=== PATIENT | male | born 1965 | race Two or more races ===

== ENCOUNTER 2019-11-17 14:21 | Inpatient (IN) | payer OTHER ==
[~2019-11-17] VITALS: Ht 175.3 cm; Wt 77.0 kg
[2019-11-17] MEDS ORDERED: SODIUM CHLORIDE 0.9% 1,000 ML IVB ONE (14:51)
[2019-11-17] MEDS ORDERED: MORPHINE SULFATE 4 MG/ML SYR/VIAL IV ONE (15:00)
[2019-11-17] MEDS ORDERED: ONDANSETRON HCL 4 MG/2 ML VIAL IV ONE (15:00)
[2019-11-17 15:48] LABS: Basophils # (auto) 0 10 ^3/uL (0-0.2); Basophils % (auto) 0.1 % (0.0-2.0); Eosinophils # (auto) 0 10 ^3/uL (0-0.8); Eosinophils % (auto) 0.1 % (0.0-7.0); Lymphocytes # (auto) 0.9 10 ^3/uL (0.4-5.4); Mean Corpuscular Hgb Conc. 33.8 g/dL (32.0-36.0)
[2019-11-17 15:51] LABS: Hematocrit 42.4 % (41.0-53.0); Hemoglobin 14.3 g/dL (13.5-17.5); Lymphocytes % (auto) 5.4 % (10.0-50.0); Mean Corpuscular Hemoglobin 29.4 pg (28.0-32.0); Neutrophils # (auto) 14.1 10 ^3/uL (1.6-8.6); Neutrophils % (auto) 88.4 % (37.0-80.0); Red Blood Cells 4.88 10^6/uL (4.5-5.90)
[2019-11-17 15:58] LABS: Albumin 1.7 g/dL (3.4-5.0); Anion Gap 7 (5-15); Blood Urea Nitrogen 18 mg/dL (7-18); Calcium 8.1 mg/dL (8.5-10.1); Carbon Dioxide 23 mmol/L (21-32); Chloride 96 mmol/L (98-107); Glucose 183 mg/dL (74-106); Lipase 44 U/L (73-393); Potassium 4.4 mmol/L (3.5-5.1); Sodium 126 mmol/L (136-145)
[2019-11-17 16:01] LABS: Alanine Aminotransferase 41 U/L (16-61); BUN/Creatinine Ratio 25.7; GFR African American 150 mL/min; GFR Non-African American 124 mL/min
[2019-11-17 16:03] LABS: Platelet Count (auto) 754 10^3/uL (140-450)
[2019-11-17 16:12] LABS: Alkaline Phosphatase 310 U/L (45-117); Aspartate Aminotransferase 34 U/L (15-37); Bilirubin, Total 2.7 mg/dL (0.2-1.0); Total Protein 7.8 g/dL (6.4-8.2)
[2019-11-17] MEDS ORDERED: IOHEXOL 300 MG/ML 100ML BOTTLE IJ ONE (16:17)
[2019-11-17] MEDS: SOD CHL 0.45% 1,000 ML IV SCH ×2 (17:15→22:15)
[2019-11-17] MEDS ORDERED: DEXTROSE (50%) 50ML SYRG IV PRN (17:15)
[2019-11-17] MEDS ORDERED: ACETAMINOPHEN 325 MG TAB PO ONE (18:45)
[2019-11-17] MEDS: InsuLIN REG 1unit/0.01ml Soln (100units/ml) SC SCH (19:48)
[2019-11-17] MEDS: MORPHINE SULFATE 4 MG/ML SYR/VIAL IV PRN (19:50)
[2019-11-17] MEDS: ONDANSETRON HCL 4 MG/2 ML VIAL IV PRN (19:51)
--- NOTE | 2019-11-17 20:03 | NUR ---
MS admit from ER JOEL RIVERA admitted to tele/MS after SBAR received. Patient oriented to Jo Ann Jorge, primary RN, unit, room, bed, and unit policies regarding patient care and visiting hours. Patient weighed by bed scale and encouraged to call if they need something. All questions and concerns addressed, patient verbalized understanding. PATIENT TRANSFERRED TO BED, AND CHANGED INTO GOWN, SITTING UP IN BED, BED IN LOWEST POSITION, WITH SIDE RALES UP X2, CALL LIGHT AT HIS SIDE WITHIN REACH.
[2019-11-17 20:40] VITALS: BP 113/70
[2019-11-17] MEDS ORDERED: METF-372 PO (20:57)
[2019-11-17] MEDS ORDERED: OMEP20TA PO (20:57)
[2019-11-17] MEDS ORDERED: LISI-646 PO (20:57)
[2019-11-17] MEDS ORDERED: ACCU-CHEK COMFORT CURVE STRIP VI SCH (22:00)
[2019-11-17] MEDS: metroNIDAZOLE 500MG/100ML 100 ML IV SCH (22:15)
[2019-11-17 22:27] VITALS: BP 113/70
[2019-11-18] VITALS (33 sets, daily range): BP systolic 78–151; BP diastolic 23–89
[2019-11-18] MEDS: InsuLIN REG 1unit/0.01ml Soln (100units/ml) SC SCH ×5 (00:38→22:49)
[2019-11-18] MEDS: MORPHINE SULFATE 4 MG/ML SYR/VIAL IV PRN ×3 (00:39→11:22)
[2019-11-18] MEDS: ONDANSETRON HCL 4 MG/2 ML VIAL IV PRN (04:16)
[2019-11-18] MEDS ORDERED: guaiFENesin-CODEINE Liq 5 ML UD PO PRN (04:30)
[2019-11-18] MEDS: metroNIDAZOLE 500MG/100ML 100 ML IV SCH ×2 (05:51→18:59)
[2019-11-18] MEDS: SOD CHL 0.45% 1,000 ML IV SCH ×2 (05:51→13:15)
[2019-11-18 06:17] LABS: Basophils # (auto) 0 10 ^3/uL (0-0.2); Basophils % (auto) 0.2 % (0.0-2.0); Eosinophils # (auto) 0 10 ^3/uL (0-0.8); Hematocrit 45.9 % (41.0-53.0); Hemoglobin 15.4 g/dL (13.5-17.5); Lymphocytes # (auto) 0.5 10 ^3/uL (0.4-5.4); Lymphocytes % (auto) 2.6 % (10.0-50.0); Mean Corpuscular Hemoglobin 29.6 pg (28.0-32.0); Mean Corpuscular Hgb Conc. 33.6 g/dL (32.0-36.0); Mean Corpuscular Volume 88.2 fL (80.0-100.0); Monocytes # (auto) 0.5 10 ^3/uL (0-1.3); Monocytes % (auto) 2.6 % (0.0-12.0); Neutrophils # (auto) 18.6 10 ^3/uL (1.6-8.6); Neutrophils % (auto) 94.6 % (37.0-80.0); Red Cell Distribution Width 14.5 % (11.8-14.3); White Blood Cell 19.7 10^3/uL (4.4-10.8)
[2019-11-18 06:21] LABS: Platelet Count (auto) 961 10^3/uL (140-450)
--- NOTE | 2019-11-18 06:21 | NUR ---
CRITICAL LAB LAB CALLED WITH CRITICAL LAB VALUE OF 961 PLATELET COUNT PERVIOUSLY [id number], PAGED DR. DANIEL.
[2019-11-18 06:36] LABS: Calcium 8.2 mg/dL (8.5-10.1); Potassium 4.8 mmol/L (3.5-5.1)
[2019-11-18 06:42] LABS: Albumin 1.8 g/dL (3.4-5.0); BUN/Creatinine Ratio 24.7; Bilirubin, Total 3.2 mg/dL (0.2-1.0); Total Protein 7.8 g/dL (6.4-8.2)
--- NOTE | 2019-11-18 07:30 | NUR ---
Opening Shift Note Assumed care of patient, awake and alert. Patient appears SOB and diaphoretic. Skin is cool and clammy to the touch. Oxygen saturation checked and found to be 97 percent. Patient is on Oxygen at 3L/min. Instructed on POC and to call for assist PRN, will continue to monitor for changes Q1hr and PRN.
--- NOTE | 2019-11-18 08:30 | NUR ---
Spoke with Dr. Miller and informed him that the patient was SOB and the imaging shows some possible purulent fluid in the right lung. Orders Obtained.
[2019-11-18] MEDS ORDERED: VANCOMYCIN PER PHARMACY 0 MG IV SCH (08:45)
[2019-11-18] MEDS ORDERED: DEXTROSE (50%) 50ML SYRG IV PRN (08:45)
[2019-11-18 08:51] LABS: Urine Bacteria NONE SEEN /hpf (None Seen); Urine Blood Negative /uL (Negative); Urine Mucus FEW (None Seen); Urine Specific Gravity 1.045 (1.001-1.035); Urine WBC 4 /hpf (0 - 3)
[2019-11-18] MEDS ORDERED: levoFLOXacin 500MG 100 ML IV SCH ×2 (10:00→10:44)
[2019-11-18] MEDS: ENOXAPARIN SOD 40 MG/0.4 ML SYRINGE SC SCH (10:00)
--- NOTE | 2019-11-18 10:30 | NUR ---
Dr. Miller informed of patient's chest ct results. orders obtained. Will reach out to page pulmonary and let Dr. Amparo Stapleton know what is going on.
--- NOTE | 2019-11-18 10:34 | NUR ---
Message left with Dr. Gregory.
[2019-11-18] MEDS: VANCOMYCIN 1GM/250ML 250 ML IV SCH ×2 (10:50→18:59)
--- NOTE | 2019-11-18 11:00 | NUR ---
Dr. Gregory and Dr. Amparo Stapleton rounding on patient. Patient will be transferred to ICU. Will inform Engraving Press Operator.
--- NOTE | 2019-11-18 11:30 | NUR ---
Dr. Gregory to place Chest tube at bed side. Will let charge nurse know and will get the supplies together that were requested by Dr. Gregory.
[2019-11-18] MEDS: ACCU-CHEK COMFORT CURVE STRIP VI SCH ×3 (11:52→22:49)
[2019-11-18] MEDS ORDERED: LIDOCAINE 2% (LOCAL ANESTH.) PF 5ml SDV ONE (12:07)
[2019-11-18] MEDS ORDERED: HYDROcodone-ACET 10/325MG TAB PO PRN (12:15)
[2019-11-18] MEDS ORDERED: LIDOCAINE 2%HCL (LOCAL ANESTH.) INJ 10ml MDV IJ ONE (12:15)
[2019-11-18] MEDS ORDERED: HYDROmorphone HCL 2 MG/ML VL IV PRN (12:15)
--- NOTE | 2019-11-18 13:00 | NUR ---
ASSISTED DR. GRIDER WITH CT PLACEMENT. PT TOLERATED PROCEDURE WELL.
--- NOTE | 2019-11-18 13:01 | NUR ---
Nutrition Assessment Notes Please refer to link for full assessment notes. Est energy needs: 3818-1818 kcals (20-23 kcal/kgBW) Est protein needs: 72-90 gms/day (0.8-1.0 gm/kgBW) Will continue to monitor and reassess prn. Addendum: 11/18/19 at [address] Amended: Links added.
[2019-11-18] MEDS ORDERED: metroNIDAZOLE 500MG/100ML 100 ML IV SCH (14:00)
--- NOTE | 2019-11-18 14:47 | NUR ---
NOTIFIED DR. HUMPHREYS OF EKG FINDINGS ST ELEVATION SUGGESTIVE OF ?? INFERIOR-LATERAL INJURY OR ACUTE INFARCT, REQUESTED TO HAVE THE EKG SENT TO HIS CELL PHONE. I SENT HIM THE IMAGE TO HIS CELL PHONE HE CALL BACK SATING THAT ITS ACUTE PERICARDITIS SECONDARY TO EMPYEMA, TO HAVE THE TROPONIN CHECKED AND TO CALL HIM IF ABNORMAL.
[2019-11-18] MEDS ORDERED: D5W/SOD CHL 0.45% 1,000 ML IV SCH (15:00)
[2019-11-18] MEDS ORDERED: HYDROcodone-ACET 5/325MG TAB PO PRN (15:00)
--- NOTE | 2019-11-18 15:33 | NUR ---
DR. ALEJANDRO CALLED HE SAID TO GIVE THE CONSULTATION FOR THE EMPYEMA TO DR. BARNETT. I NOTIFIED DR HUMPHREYS WHO IS THE PT'S PRIMARY MD. HE SAID THAT IT IS OK. TO DO THAT. CONSULTATION ORDERS CHANGED. FROM DR. ALEJANDRO TO DR. BARNETT.
[2019-11-18] MEDS: PIPERACILLIN-TAZO 4.5GM 100 ML IV SCH ×2 (15:46→23:26)
[2019-11-18] MEDS ORDERED: ETOMIDATE (2MG/ML) 20ML VIAL IV ONE (16:12)
[2019-11-18] MEDS ORDERED: SUCCINYLCHOLINE CHLORIDE 20 MG/ML 10ML VIAL IV ONE (16:13)
--- NOTE | 2019-11-18 16:25 | NUR ---
PT GOT INTUBATED BY DR. BOND AT BEDSIDE WITH SIZE 8.0 ETT SECURED AT 24 CM AT THE LIP. REFER TO RT DOCUMENTATION. PT TOLERATED PROCEDURE WELL. MD ALSO INSERTED OGT AT THE SAME TIME. PLACEMENT WILL BE VERIFIED BE CXR.
--- NOTE | 2019-11-18 16:25 | NUR ---
INTUBATION ONLY 120 MG OF SUCCINOCHOLINE USED FOR INTUBATION. ONLY 40 MG OF ETOMIDATE USED FOR INTUBATION. MEDICATIONS OVERBIDDEN UNER JULESIS.
--- NOTE | 2019-11-18 16:30 | NUR ---
Respiratory note: UNABLE TO COLLECT SPUTUM SAMPLE DUE TO NO RETURN UPON SUCTION. WILL ENDORSE PT STATUS TO WARD SERVICE SUPERVISOR.
[2019-11-18] MEDS ORDERED: PROPOFOL 100 ML IV ONE (16:41)
[2019-11-18 17:19] LABS: Lactic Acid w/Reflex 11.6 mmol/L (0.4-2.0)
[2019-11-18] MEDS ORDERED: NOREPINEPHRINE 8 MG/250ML KIT 250 ML IV ONE (17:26)
[2019-11-18] MEDS: NOREPINEPHRINE 8 MG/250ML KIT 250 ML IV SCH (17:55)
[2019-11-18] MEDS ORDERED: MIDAZOLAM DRIP 50 mg/50mL 50 ML IV SCH (18:35)
[2019-11-18] MEDS: fentaNYL Drip 2500mCg/250mlNS 250 ML IV SCH (18:38)
[2019-11-18] MEDS: PANTOPRAZOLE 40 MG/10 ML VIAL INJ IV SCH (18:56)
[2019-11-18] MEDS: NICOTINE 21MG/24 HR TOPICAL PATCH TD SCH (18:58)
[2019-11-18] MEDS: PROPOFOL 100 ML IV SCH ×2 (19:14→19:41)
--- NOTE | 2019-11-18 19:30 | NUR ---
REPORT RECEIVED AND ASSUMED CARE; SEE INTERVENTIONS FOR ASSESSMENT; SEE IV SPREADSHEET FOR GTTS; SBP NOT STABLE AND TITRATING PRESSOR-OTHER VITAL SIGNS WITHIN NORMAL RANGE; WILL CONT. TO MONITOR.
[2019-11-18] MEDS ORDERED: SODIUM CHLORIDE 0.9% 1,000 ML IV ONE ×2 (19:45→20:15)
[2019-11-18] MEDS: MIDAZOLAM DRIP 50 mg/50mL 50 ML IV SCH (20:10)
--- NOTE | 2019-11-18 20:20 | NUR ---
DR. BOND AT BEDSIDE TO CHECK ON PT.
[2019-11-18] MEDS ORDERED: SODIUM BICARBONATE 50ML VIAL 50 ML in D5W/SOD CHL 0.45% 1,000 ML IV SCH (20:30)
[2019-11-18] MEDS ORDERED: SODIUM BICARBONATE 8.4% INJ 50ML SYRINGE ONE ×3 (20:32→23:03)
[2019-11-18] MEDS: PHENYLEPHRINE IV 250 ML IV SCH (22:00)
[2019-11-18 22:56] LABS: Basophils # (auto) 0 10 ^3/uL (0-0.2); Basophils % (auto) 0.1 % (0.0-2.0); Eosinophils # (auto) 0 10 ^3/uL (0-0.8); Lymphocytes # (auto) 0.8 10 ^3/uL (0.4-5.4); White Blood Cell 12.1 10^3/uL (4.4-10.8)
[2019-11-18 22:58] LABS: Hematocrit 43.7 % (41.0-53.0); Hemoglobin 14.3 g/dL (13.5-17.5); Lymphocytes % (auto) 6.4 % (10.0-50.0); Mean Corpuscular Hemoglobin 29.5 pg (28.0-32.0); Mean Corpuscular Hgb Conc. 32.7 g/dL (32.0-36.0); Mean Corpuscular Volume 90.1 fL (80.0-100.0); Monocytes # (auto) 0.3 10 ^3/uL (0-1.3); Monocytes % (auto) 2.6 % (0.0-12.0); Neutrophils % (auto) 90.9 % (37.0-80.0); Red Blood Cells 4.85 10^6/uL (4.5-5.90); Red Cell Distribution Width 14.7 % (11.8-14.3)
[2019-11-18 23:06] LABS: Platelet Count (auto) 797 10^3/uL (140-450)
[2019-11-18 23:22] LABS: Albumin 1.4 g/dL (3.4-5.0); BUN/Creatinine Ratio 20.1; Calcium 7.8 mg/dL (8.5-10.1); Magnesium 2.1 mg/dL (1.6-2.6); Potassium 5.1 mmol/L (3.5-5.1)
[2019-11-18 23:24] LABS: Bilirubin, Total 1.8 mg/dL (0.2-1.0); Total Protein 6.4 g/dL (6.4-8.2)
--- NOTE | 2019-11-18 23:40 | NUR ---
S/W DR. Amparo HUMPHREYS AND ORDERS GIVEN; WILL HAVE Adam HUMPHREYS CALL ME REGARDING NEPHROLOGY PART OF CARE.
[2019-11-18] MEDS ORDERED: InsuLIN R (HUMAN) 100 UNITS in SODIUM CHL 0.9% 99 ML IV SCH (23:54)
[2019-11-19] VITALS (103 sets, daily range): BP systolic 62–134; BP diastolic 39–80
--- NOTE | 2019-11-19 00:10 | NUR ---
S/W DR. Adam HUMPHREYS AND ORDERS GIVEN; WILL CONT. TO MONITOR.
[2019-11-19] MEDS ORDERED: InsuLIN REG 1unit/0.01ml Soln (100units/ml) ONE (00:29)
[2019-11-19] MEDS ORDERED: ALBUMIN 25% 100 ML IV ONE (00:30)
[2019-11-19] MEDS: metroNIDAZOLE 500MG/100ML 100 ML IV SCH (01:00)
[2019-11-19] MEDS ORDERED: VASOPRESSIN 50 UNITS in D5W 5% 247.5 ML IV SCH (01:30)
[2019-11-19] MEDS: ACCU-CHEK COMFORT CURVE STRIP VI SCH ×13 (01:30→20:19)
[2019-11-19] MEDS: VASOPRESSIN 50 UNITS in D5W 5% 247.5 ML IV SCH ×2 (01:30→15:16)
[2019-11-19] MEDS: VANCOMYCIN 1GM/250ML 250 ML IV SCH (03:07)
[2019-11-19] MEDS ORDERED: VASOPRESSIN 20 UNIT/ML ONE (03:50)
[2019-11-19 04:41] LABS: INR 1.49 (0.9-1.15); Partial Thromboplastin Time 38.7 sec (23.64-32.05)
[2019-11-19 04:45] LABS: Albumin 1.8 g/dL (3.4-5.0); BUN/Creatinine Ratio 22.9; Calcium 7.3 mg/dL (8.5-10.1); Magnesium 2.5 mg/dL (1.6-2.6); Potassium 5.4 mmol/L (3.5-5.1)
[2019-11-19 04:48] LABS: BUN/Creatinine Ratio 21.9; Lactic Acid w/Reflex 5.7 mmol/L (0.4-2.0); Phosphorus 5.2 mg/dL (2.5-4.90); Total Protein 6.7 g/dL (6.4-8.2)
[2019-11-19] MEDS ORDERED: InsuLIN R (HUMAN) 100 UNITS in SODIUM CHL 0.9% 99 ML IV SCH (05:00)
[2019-11-19] MEDS ORDERED: DEXTROSE (50%) 50ML SYRG IV PRN ×3 (05:00→16:00)
[2019-11-19 05:10] LABS: Basophils # (auto) 0 10 ^3/uL (0-0.2); Basophils % (auto) 0.2 % (0.0-2.0); Eosinophils # (auto) 0 10 ^3/uL (0-0.8); Hemoglobin 14.1 g/dL (13.5-17.5); Lymphocytes # (auto) 0.5 10 ^3/uL (0.4-5.4); Monocytes # (auto) 0.1 10 ^3/uL (0-1.3); Red Cell Distribution Width 15.1 % (11.8-14.3)
[2019-11-19 05:11] LABS: Eosinophils % (auto) 0.1 % (0.0-7.0); Hematocrit 44.4 % (41.0-53.0); Lymphocytes % (auto) 3.9 % (10.0-50.0); Mean Corpuscular Hemoglobin 28.7 pg (28.0-32.0); Mean Corpuscular Hgb Conc. 31.8 g/dL (32.0-36.0); Mean Corpuscular Volume 90.4 fL (80.0-100.0); Monocytes % (auto) 1.2 % (0.0-12.0); Neutrophils % (auto) 94.6 % (37.0-80.0); Nucleated Red Blood Cells % 0.1 %; Red Blood Cells 4.91 10^6/uL (4.5-5.90); White Blood Cell 11.7 10^3/uL (4.4-10.8)
[2019-11-19 05:15] LABS: Platelet Count (auto) 832 10^3/uL (140-450)
[2019-11-19] MEDS: PIPERACILLIN-TAZO 4.5GM 100 ML IV SCH ×3 (06:00→22:00)
--- NOTE | 2019-11-19 06:00 | NUR ---
WT= 93.8KG
[2019-11-19] MEDS ORDERED: SODIUM BICARBONATE 8.4 % INJ 50ML VIAL IV ONE (06:51)
[2019-11-19] MEDS ORDERED: EPINEPHrine HCL 250 ML IV ONE (06:54)
[2019-11-19] MEDS: SODIUM BICARBONATE 50ML VIAL 100 ML in SOD CHL 0.45% 1,000 ML IV SCH ×5 (07:20→21:10)
--- NOTE | 2019-11-19 07:30 | NUR ---
REMAINS INTUBATED SEDATED ON 4 DIFFERENT PRESSORS. SEPTIC SHOCK. WITH RT LUNG EMPYEMA, CT TO WALL SUCTION WITH A SMALL LEAK, WITH SMALL CREPITUS AT INSERTION SITE PER CHEST X-RAY AND LIGHT PALPATION. ABDOMEN LARGE AND DISTENDED WITH DISTANT BOWEL SOUNDS. FC DRAINING DARK ICE TEA COLOR URINE. PT'S SKIN COLD & CLAMMY. PT'S SKIN PALE .
[2019-11-19] MEDS: PROPOFOL 100 ML IV SCH ×3 (07:35→16:28)
[2019-11-19] MEDS: fentaNYL Drip 2500mCg/250mlNS 250 ML IV SCH (07:36)
[2019-11-19] MEDS: PHENYLEPHRINE IV 250 ML IV SCH ×5 (08:11→17:19)
[2019-11-19] MEDS: NOREPINEPHRINE 8 MG/250ML KIT 250 ML IV SCH ×3 (09:01→17:30)
--- NOTE | 2019-11-19 09:15 | NUR ---
WOUND CARE NOTE: PATIENT ADDED TO SKIN INTEGRITY MONITORING D/T INTUBATION STATUS. PATIENT ADMITTED TO [facility] WITH DIAGNOSIS OF ABDOMINAL PAIN. PATIENT HAS CURRENT ABBY SCORE OF 10. SKIN/WOUND CARE PLAN IMPLEMENTED. PER BEDSIDE NURSEYOSI- PATIENT'S SKIN IS PINK, BLANCHABLE, SKIN INTACT. HE IS CURRENTLY RECEIVING A BEDSIDE PROCEDURE, UNABLE TO ASSESS SKIN AT THIS TIME. RECOMMEND: FREQUENT TURN SCHEDULE Q 2 HOURS,PRN CONDITION PERMITS, WITH PRESSURE REDISTRIBUTION USING PILLOWS/WEDGES, BID/PRN APPPLICATION MOISTURE BARRIER CREAM, OPTIFOAM GENTLE SACRAL DRESSING PREVENTATIVE, DIETARY CONSULT, SKIN/WOUND CARE PLAN, CONTINUED MONITORING BY WOUND CARE TEAM.
[2019-11-19] MEDS ORDERED: PIPERACILLIN-TAZO 4.5GM 100 ML IV SCH ×2 (09:30)
--- NOTE | 2019-11-19 09:45 | NUR ---
ASSISTED DR. GRIDER WITH LT BRACHIAL ARTERIAL LINE INSERTION. A- LINE ZEROED AND CORRELATED WITH NON-INVASIVE BP. PT TOLERATED PROCEDURE WELL. PT VERY HYPOTENSIVE. SEE IV FLOWSHEET FOR TITRATION OF GTTS. FOR B/P CONTROL. FOR BOTH SEDATION & PRESSORS.
[2019-11-19] MEDS ORDERED: SODIUM CHLORIDE 0.9% 2,000 ML IV ONE (10:00)
[2019-11-19] MEDS: EPINEPHrine HCL 250 ML IV SCH ×2 (10:14→15:22)
[2019-11-19] MEDS ORDERED: SODIUM ZIRCONIUM CYCL 10 GM PAK PO ONE (10:30)
[2019-11-19] MEDS ORDERED: ALBUTEROL SULF 2.5 MG/0.5ML(0.5%) NEB SOLN NEB ONE (10:30)
--- NOTE | 2019-11-19 10:30 | NUR ---
NOTIFIED DR. Adam HUMPHREYS OF HYPERKALEMIA K 5.4 ORDERED 2 AMPS OF SODIUM BICARB 10 MG OF ALBUTEROL MED NEB..
[2019-11-19 10:33] LABS: BUN/Creatinine Ratio 24.1; Calcium 6.8 mg/dL (8.5-10.1)
[2019-11-19 10:37] LABS: Potassium 6.1 mmol/L (3.5-5.1)
[2019-11-19] MEDS ORDERED: SODIUM BICARBONATE 8.4% INJ 50ML SYRINGE ONE ×2 (10:39→21:00)
[2019-11-19] MEDS: ENOXAPARIN SOD 40 MG/0.4 ML SYRINGE SC SCH (11:25)
[2019-11-19] MEDS: PANTOPRAZOLE 40 MG/10 ML VIAL INJ IV SCH (11:25)
[2019-11-19] MEDS: NICOTINE 21MG/24 HR TOPICAL PATCH TD SCH (11:26)
[2019-11-19] MEDS ORDERED: levoFLOXacin 500MG 100 ML IV SCH (12:00)
--- NOTE | 2019-11-19 12:27 | NUR ---
NOTIFIED DR. Margo HUMPHREYS OF PHARMACY WANTING TO SWITCH VANCOMYCIN TO ZYVOX. OK THE SWITCH OF ATB. I CALLED BACK PHARMACIST AND NOTIFIED THEM TO SWITCH ATB'S.
[2019-11-19 12:30] LABS: Lactic Acid w/Reflex 3.1 mmol/L (0.4-2.0)
[2019-11-19] MEDS: HYDROCORTISONE SOD SUCC 100 MG/2ML INJ VIAL IV SCH ×2 (14:00→22:00)
[2019-11-19] MEDS: ALBUMIN 25% 100 ML IV SCH (14:06)
[2019-11-19] MEDS ORDERED: HYDROmorphone HCL 2 MG/ML VL IV PRN (14:15)
[2019-11-19] MEDS: LINEZOLID 600MG/300ML 300 ML IV SCH (14:21)
[2019-11-19 14:31] LABS: BUN/Creatinine Ratio 22.2; Calcium 6.4 mg/dL (8.5-10.1); Potassium 5.2 mmol/L (3.5-5.1)
--- NOTE | 2019-11-19 15:48 | NUR ---
NOTIFIED DR. Stephanie HUMPHREYS OF BMP LAB RESULTS AND LAST ACCU CHECK. HE SAID WE CAN DO Q 4 HOUR ACCU CHECKS BUT IF BG IS GREATER THAN 250 WE'LL HAVE TO RE-START PT ON INSULIN GTT.
--- NOTE | 2019-11-19 16:16 | NUR ---
WEANED OFF INSULIN GTT STARTED ON SUB CUTANEOUS SS. ANION GAP 8.
[2019-11-19] MEDS: InsuLIN REG 1unit/0.01ml Soln (100units/ml) SC SCH ×2 (16:19→20:20)
--- NOTE | 2019-11-19 20:00 | NUR ---
MICRO CALLED [facility] + WITH GRAM POSITIVE COCCI IN CHAINS I NOTIFIED DR. MILLARD WHO WAS ROUNDING ON PT AT THE TIME. HE STATES PT IS WELL COVERED ON CURRENT ATB'S. NO FURTHER ACTION REQUIRED.
[2019-11-19] MEDS ORDERED: ACETAMINOPHEN 650 MG RECT SUPP PR PRN (22:15)
[2019-11-19 22:58] LABS: BUN/Creatinine Ratio 21.5; Calcium 6.3 mg/dL (8.5-10.1)
[2019-11-20] VITALS (108 sets, daily range): BP systolic 79–159; BP diastolic 45–89
[2019-11-20] MEDS: LINEZOLID 600MG/300ML 300 ML IV SCH ×2 (00:30→12:21)
--- NOTE | 2019-11-20 01:00 | NUR ---
left message with dr. rangel re: ABG results; will await call back.
[2019-11-20 01:24] LABS: BUN/Creatinine Ratio 22.3; Calcium 6.2 mg/dL (8.5-10.1)
[2019-11-20 01:25] LABS: Potassium 5.9 mmol/L (3.5-5.1)
[2019-11-20] MEDS ORDERED: VASOPRESSIN 20 UNIT/ML ONE (02:36)
[2019-11-20] MEDS ORDERED: SODIUM BICARBONATE 8.4% INJ 50ML SYRINGE ONE (03:36)
--- NOTE | 2019-11-20 03:40 | NUR ---
Respiratory note: NO CALL BACK RECEIVED FROM DR. GRIDER REGARDING ABG. DR. GRIDER TEXTED WITH ABG RESULTS AT THIS TIME.
[2019-11-20] MEDS ORDERED: InsuLIN REG 1unit/0.01ml Soln (100units/ml) ONE (03:49)
--- NOTE | 2019-11-20 04:17 | NUR ---
Respiratory note: NO CALL BACK OR TEXT BACK FROM DR. GRIDER. RN STATES SHE WILL ATTEMPT TO CONTACT DR. JUAN REGARDING PTS ABG RESULTS. etCO2 MAINTAINING AT 56-60, WAS CORRELATING A TIME OF ABG DRAW.
[2019-11-20 04:59] LABS: INR 1.42 (0.9-1.15); Partial Thromboplastin Time 41.1 sec (23.64-32.05)
[2019-11-20 05:02] LABS: Albumin 1.6 g/dL (3.4-5.0); Calcium 6.2 mg/dL (8.5-10.1)
[2019-11-20 05:03] LABS: Basophils # (auto) 0 10 ^3/uL (0-0.2); Basophils % (auto) 0.2 % (0.0-2.0); Eosinophils # (auto) 0 10 ^3/uL (0-0.8); Hematocrit 38.5 % (41.0-53.0); Hemoglobin 12.3 g/dL (13.5-17.5); Lymphocytes # (auto) 0.3 10 ^3/uL (0.4-5.4); Lymphocytes % (auto) 2.1 % (10.0-50.0); Mean Corpuscular Hemoglobin 28.6 pg (28.0-32.0); Mean Corpuscular Volume 89.4 fL (80.0-100.0); Monocytes # (auto) 0.3 10 ^3/uL (0-1.3); Monocytes % (auto) 1.9 % (0.0-12.0); Neutrophils # (auto) 15.1 10 ^3/uL (1.6-8.6); Neutrophils % (auto) 95.8 % (37.0-80.0); Platelet Count (auto) 664 10^3/uL (140-450); Red Blood Cells 4.31 10^6/uL (4.5-5.90); Red Cell Distribution Width 15.4 % (11.8-14.3); White Blood Cell 15.8 10^3/uL (4.4-10.8)
[2019-11-20 05:04] LABS: BUN/Creatinine Ratio 22.6
[2019-11-20] MEDS: InsuLIN REG 1unit/0.01ml Soln (100units/ml) SC SCH ×2 (05:10)
[2019-11-20] MEDS: ACCU-CHEK COMFORT CURVE STRIP VI SCH ×14 (05:10→23:22)
[2019-11-20 05:12] LABS: Bilirubin, Total 1.4 mg/dL (0.2-1.0); Total Protein 5.9 g/dL (6.4-8.2)
[2019-11-20] MEDS ORDERED: DEXTROSE (50%) 50ML SYRG IV PRN (05:15)
[2019-11-20 05:16] LABS: Potassium 5.6 mmol/L (3.5-5.1)
[2019-11-20] MEDS: HYDROCORTISONE SOD SUCC 100 MG/2ML INJ VIAL IV SCH ×3 (06:00→22:00)
[2019-11-20] MEDS: PIPERACILLIN-TAZO 4.5GM 100 ML IV SCH (06:00)
--- NOTE | 2019-11-20 06:00 | NUR ---
PT. WEIGHT= 97.3 KG.
--- NOTE | 2019-11-20 07:20 | NUR ---
LEFT MESSAGE WITH DR. JUAN RE: ABG RESULTS NO CALL BACK FROM DR. GRIDER IN REGARDS TO LAST NIGHT ABG; WILL AWAIT CALL BACK FROM DR. JUAN.
[2019-11-20] MEDS ORDERED: NOREPINEPHRINE BITARTRATE 32 MG in D5W 5% 218 ML IV SCH (07:27)
[2019-11-20] MEDS ORDERED: EPINEPHrine HCL INJECTION 8 MG in D5W 5% 250 ML IV SCH (07:27)
[2019-11-20 07:32] LABS: Hepatitis A Total Antibody Positive
[2019-11-20] MEDS: PROPOFOL 100 ML IV SCH ×2 (07:42→13:20)
[2019-11-20] MEDS ORDERED: EPINEPHRINE HCL IV SCH (07:45)
[2019-11-20] MEDS ORDERED: D5W 5% IV SCH (07:45)
[2019-11-20] MEDS: EPINEPHrine HCL INJECTION 8 MG in D5W 5% 250 ML IV SCH (07:45)
[2019-11-20] MEDS: InsuLIN R (HUMAN) 100 UNITS in SODIUM CHL 0.9% 99 ML IV SCH ×7 (07:54→17:55)
--- NOTE | 2019-11-20 07:55 | NUR ---
Respiratory note: ABG RESULTS REPORTED TO DR. JUAN. VENT CHANGE POST ABG PER DR. JUAN, RR CHANGED FROM 16 TO 22. FOLLOW UP ABG TO BE DONE IN 1HR.
--- NOTE | 2019-11-20 08:15 | NUR ---
UPDATED STATE CUSTODIAL PHYSICIAN ON PATIENTS PLAN OF CARE.
[2019-11-20] MEDS ORDERED: FUROSEMIDE 100 MG/10ML VIAL IV ONE (09:00)
[2019-11-20] MEDS ORDERED: CALCIUM GLUC 4.65meq/50ml D5AE 50 ML IV ONE (09:00)
[2019-11-20] MEDS ORDERED: ALBUMIN 25% 100 ML IV ONE (09:00)
[2019-11-20] MEDS ORDERED: SODIUM ZIRCONIUM CYCL 10 GM PAK PO ONE (09:00)
[2019-11-20] MEDS ORDERED: SODIUM BICARBONATE 8.4 % INJ 50ML VIAL IV ONE (09:00)
[2019-11-20] MEDS: PHENYLEPHRINE INJ 80 MG in SODIUM CHL 0.9% 250 ML IV SCH (09:17)
[2019-11-20] MEDS: PANTOPRAZOLE 40 MG/10 ML VIAL INJ IV SCH (09:56)
[2019-11-20] MEDS: NICOTINE 21MG/24 HR TOPICAL PATCH TD SCH (09:58)
[2019-11-20] MEDS: ENOXAPARIN SOD 40 MG/0.4 ML SYRINGE SC SCH (10:00)
[2019-11-20] MEDS: ALBUMIN 25% 100 ML IV SCH (10:00)
[2019-11-20] MEDS: fentaNYL Drip 2500mCg/250mlNS 250 ML IV SCH (10:16)
[2019-11-20] MEDS: SODIUM BICARBONATE 50ML VIAL 100 ML in SOD CHL 0.45% 1,000 ML IV SCH ×3 (10:23→16:50)
--- NOTE | 2019-11-20 10:44 | NUR ---
Resumed care at 0720, orders reviewed and ongoing assessments being done. Being treated for multiple problems and remains intubated and sedated. Upon arrival assessments, skin very hot and oral temperature taken, 103.0. Inserted rectal probe and temperature measured 102.9. Initiated cooling measures immediately. Tylenol suppository given, cooling blanket and ice packs applied. Temperature now measuring 99.5 rectally. Contacted Adam Stapleton, owner oral surgeon at 0850 and updated him on condition and reviewed chemistry. K level 5.6, new orders obtained and initiated. Will draw follow up chemistry at 1400. Remains on multiple vasopressors for hemodynamic stability (see IV flow sheet), titrating as appropriate, infusing via right IJ TLC. Dr. Ayala, pediatric physiatrist rounded at 0950. Clarisa SCHULER had been communicating with him throughout the morning regarding ABG results and making ventilator setting changes per Dr. Ayala (see RT flow sheet). Dr. Amparo Stapleton, 8th grade teacher rounded at 1038, discussed condition and reviewed data, continue current plan of care.
[2019-11-20 10:45] LABS: Hepatitis C Antibody Negative (Negative)
--- NOTE | 2019-11-20 13:52 | NUR ---
24 Fr. chest tube to right upper lateral side in place. Continues to drain light brown cloudy fluid. Small air leak grade 1 noted and reported on prior shift. Checked pleura vac unit upon arrival, leak not due to equipment. Dr. Ayala aware. Very mild crepitus felt around insertion site. Clarisa SCHULER collected sputum sample and sent to lab. Dr. Stapleton aware that there is a persistent ST elevation on the ECG. Per Dr. Stapleton ST elevation due to acute pericarditis.
--- NOTE | 2019-11-20 14:41 | NUR ---
Drawing scheduled BNP and lactic acid. Infusions on hold for 30 seconds and noted drop in BP quickly, 67/36. Resumed infusions and BP steadily elevated. Remains on maximum Levophed and Vasopressin infusions. Held sedation for 5 minutes until BP stabilized. Dr. Miller in to round, discussed condition and plan of care. Continue with current plan. Addendum: 11/20/19 at 1717 by Sofiya Mixon RN RN Labs: BMP and lactic acid
[2019-11-20] MEDS: MEROPENEM 1GM IVPB 100 ML IV SCH (14:53)
[2019-11-20] MEDS: VASOPRESSIN 50 UNITS in D5W 5% 247.5 ML IV SCH (14:56)
[2019-11-20 15:02] LABS: Lactic Acid w/Reflex 2.4 mmol/L (0.4-2.0)
[2019-11-20 15:55] LABS: BUN/Creatinine Ratio 23.5; Calcium 6.6 mg/dL (8.5-10.1); Potassium 4.6 mmol/L (3.5-5.1)
--- NOTE | 2019-11-20 17:18 | NUR ---
Spoke with Dr. Adam Stapleton, operating room surgical technician at 1300 via phone. Forward latest BMP and ABG results, K level now 4.6. Reviewed medications and order taken to decrease IVF to 70 ml/hour.
--- NOTE | 2019-11-20 18:26 | NUR ---
Dr. Coleman, cardiothoracic surgeon rounded earlier today. Consulted to see patient regarding right lung empyema. Made him aware that the patient is to unstable to escort him to radiology for CT Scan of chest. Chest tube to right upper lateral side remains in place. Crepitus has not migrated. [place] around insertion site, mild. Chest tube continues to have a low grade leak, grade 1. 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 Both ankles cuffed and also left wrist. No skin break down noted. Mild redness around both ankles and left wrist. Socks on both feet and cloth around left wrist to prevent skin break down. Continue with cooling measures if appropriate. Rectal temperature at this time 98.4.
--- NOTE | 2019-11-20 19:30 | NUR ---
REPORT RECEIVED AND ASSUMED CARE; SEE INTERVENTIONS FOR ASSESSMENT; SEE IV SPREADSHEET FOR GTTS; VS STABLE AT THIS TIME WITH PT. ON LEVOPHED GTT AND VASOPRESSIN GTT; PT. INTUBATED/SEDATED/VENTED-TOLERATING WELL; WILL CONT. TO MONITOR.
[2019-11-21] VITALS (103 sets, daily range): BP systolic 84–162; BP diastolic 48–94
[2019-11-21] MEDS: LINEZOLID 600MG/300ML 300 ML IV SCH ×2 (00:30→12:25)
--- NOTE | 2019-11-21 01:40 | NUR ---
DR. Amparo HUMPHREYS AT BEDSIDE MAKING ROUNDS.
[2019-11-21] MEDS ORDERED: DEXTROSE (50%) 50ML SYRG IV PRN (02:00)
[2019-11-21] MEDS: MEROPENEM 1GM IVPB 100 ML IV SCH ×3 (02:00→18:04)
[2019-11-21] MEDS: ACCU-CHEK COMFORT CURVE STRIP VI SCH ×14 (03:28→22:57)
[2019-11-21 04:10] LABS: Basophils # (auto) 0 10 ^3/uL (0-0.2); Basophils % (auto) 0.1 % (0.0-2.0); Eosinophils # (auto) 0 10 ^3/uL (0-0.8); Hematocrit 36.5 % (41.0-53.0); Lymphocytes # (auto) 0.4 10 ^3/uL (0.4-5.4); Lymphocytes % (auto) 2.3 % (10.0-50.0); Red Blood Cells 4.18 10^6/uL (4.5-5.90); White Blood Cell 17.4 10^3/uL (4.4-10.8)
[2019-11-21 04:12] LABS: Hemoglobin 12.1 g/dL (13.5-17.5); Mean Corpuscular Hemoglobin 28.9 pg (28.0-32.0); Mean Corpuscular Hgb Conc. 33.1 g/dL (32.0-36.0); Mean Corpuscular Volume 87.2 fL (80.0-100.0); Monocytes # (auto) 0.9 10 ^3/uL (0-1.3); Monocytes % (auto) 5.2 % (0.0-12.0); Neutrophils # (auto) 16.1 10 ^3/uL (1.6-8.6); Neutrophils % (auto) 92.4 % (37.0-80.0); Platelet Count (auto) 569 10^3/uL (140-450)
[2019-11-21 04:21] LABS: Albumin 1.7 g/dL (3.4-5.0); BUN/Creatinine Ratio 30.7; Calcium 6.6 mg/dL (8.5-10.1); Potassium 4.8 mmol/L (3.5-5.1)
[2019-11-21 04:23] LABS: Bilirubin, Total 1.2 mg/dL (0.2-1.0)
--- NOTE | 2019-11-21 06:10 | NUR ---
report given to MICHAEL Goldberg.
[2019-11-21] MEDS: MIDAZOLAM DRIP 50 mg/50mL 50 ML IV SCH ×3 (06:47→20:10)
[2019-11-21] MEDS: HYDROCORTISONE SOD SUCC 100 MG/2ML INJ VIAL IV SCH ×3 (06:47→22:08)
[2019-11-21] MEDS: InsuLIN R (HUMAN) 100 UNITS in SODIUM CHL 0.9% 99 ML IV SCH (07:00)
[2019-11-21] MEDS: PHENYLEPHRINE INJ 80 MG in SODIUM CHL 0.9% 250 ML IV SCH (07:27)
[2019-11-21] MEDS: EPINEPHrine HCL INJECTION 8 MG in D5W 5% 250 ML IV SCH (07:45)
--- NOTE | 2019-11-21 07:51 | NUR ---
PT UNSTABLE FOR TRANSPORT TO CT AT THIS TIME.
[2019-11-21] MEDS: PROPOFOL 100 ML IV SCH ×3 (08:12→18:59)
[2019-11-21] MEDS: SODIUM BICARBONATE 50ML VIAL 100 ML in SOD CHL 0.45% 1,000 ML IV SCH (08:28)
--- NOTE | 2019-11-21 08:40 | NUR ---
RASHMI LUQUE UPDATED MD ON PT STATUS AND PROGRESS
[2019-11-21] MEDS: ALBUMIN 25% 100 ML IV SCH (10:05)
[2019-11-21] MEDS: PANTOPRAZOLE 40 MG/10 ML VIAL INJ IV SCH (10:06)
[2019-11-21] MEDS: NICOTINE 21MG/24 HR TOPICAL PATCH TD SCH (10:06)
[2019-11-21] MEDS: ENOXAPARIN SOD 40 MG/0.4 ML SYRINGE SC SCH (10:07)
[2019-11-21] MEDS: fentaNYL Drip 2500mCg/250mlNS 250 ML IV SCH ×2 (10:08→21:46)
[2019-11-21 10:14] LABS: Lactic Acid w/Reflex 2.5 mmol/L (0.4-2.0)
--- NOTE | 2019-11-21 10:30 | NUR ---
Respiratory note: ET TUBE ADVANCED TO 26CM LIP-LINE MARKING IN RESPONSE TO CXR DONE TODAY. PT TOLERATED PROCEDURE WELL. RN AND GUARDS AT BEDSIDE.
--- NOTE | 2019-11-21 14:15 | NUR ---
assessment Patient is a prisoner. Patients discharge plan will be back to group home when stable. Addendum: 11/21/19 at 1416 by Josseline QUINONEZ Amended: Links added.
[2019-11-21] MEDS: NOREPINEPHRINE BITARTRATE 16 MG in D5W 5% 250 ML IV SCH (17:18)
--- NOTE | 2019-11-21 19:00 | NUR ---
Opening note Assumed care of patient at this time. Report received from day shift RN. POC reviewed. Head to toe assessment complete, see intervention spreadsheet for complete details. Received pt intubated, sedated and on pressors. Received pt with right chest tube to 20 cm of suction, brown fluid draining. Ogt to LIS. Goldstein catheter draining to gravity. IV site benign. PT has shackles on both ankles and left wrist with barriers. Skin intact under shackles. Guards at bedside. VSS. Bed locked and in lowest position, safety precautions in place. Will monitor pt carefully.
--- NOTE | 2019-11-21 20:35 | NUR ---
at bedside, Dr. Stephanie Stapleton at bedside, orders received. Start pt on clinimix tonight, start tpn per pharmacy. Daily Mag and Phosphorous with CBC and CMP. Orders to D/C bicarb gtt. Continue with insulin gtt, will revisit insulin gtt when tpn initiated. Continue with ICU interventions and care.
[2019-11-21] MEDS ORDERED: TPN PER PHARMACY 0 ML IV SCH (21:30)
[2019-11-21] MEDS ORDERED: AMINO ACID INFUSION IN D5W 2,000 ML IV ONE (22:00)
[2019-11-21] MEDS ORDERED: AMINO ACID INFUSION IN D5W 2,000 ML IV NR (22:30)
[2019-11-22] VITALS (103 sets, daily range): BP systolic 83–268; BP diastolic 59–244
[2019-11-22] MEDS: LINEZOLID 600MG/300ML 300 ML IV SCH ×2 (01:12→12:37)
[2019-11-22] MEDS: VASOPRESSIN 50 UNITS in D5W 5% 247.5 ML IV SCH (01:30)
[2019-11-22] MEDS: ACCU-CHEK COMFORT CURVE STRIP VI SCH ×13 (01:30→18:28)
[2019-11-22] MEDS: InsuLIN R (HUMAN) 100 UNITS in SODIUM CHL 0.9% 99 ML IV SCH ×2 (01:57→08:03)
[2019-11-22] MEDS: MEROPENEM 1GM IVPB 100 ML IV SCH ×3 (02:12→18:26)
[2019-11-22] MEDS: PROPOFOL 100 ML IV SCH ×4 (02:53→18:27)
[2019-11-22 04:13] LABS: Basophils # (auto) 0 10 ^3/uL (0-0.2); Basophils % (auto) 0.2 % (0.0-2.0); Eosinophils # (auto) 0 10 ^3/uL (0-0.8); Hematocrit 34.7 % (41.0-53.0); Hemoglobin 11.8 g/dL (13.5-17.5); Lymphocytes # (auto) 0.3 10 ^3/uL (0.4-5.4); Lymphocytes % (auto) 3.3 % (10.0-50.0); Mean Corpuscular Volume 88.3 fL (80.0-100.0); Monocytes # (auto) 0.2 10 ^3/uL (0-1.3); Monocytes % (auto) 2.3 % (0.0-12.0); Neutrophils # (auto) 9.6 10 ^3/uL (1.6-8.6); Neutrophils % (auto) 94.2 % (37.0-80.0); Platelet Count (auto) 432 10^3/uL (140-450); Red Blood Cells 3.93 10^6/uL (4.5-5.90); Red Cell Distribution Width 14.8 % (11.8-14.3); White Blood Cell 10.1 10^3/uL (4.4-10.8)
[2019-11-22 04:27] LABS: Potassium 4.3 mmol/L (3.5-5.1)
[2019-11-22 04:34] LABS: Albumin 1.7 g/dL (3.4-5.0); BUN/Creatinine Ratio 38.3; Bilirubin, Total 1.1 mg/dL (0.2-1.0); Magnesium 2.6 mg/dL (1.6-2.6); Phosphorus 2.2 mg/dL (2.5-4.90); Pre Albumin 3.3 mg/dL (20.0-40.0); Total Protein 5.9 g/dL (6.4-8.2)
--- NOTE | 2019-11-22 05:12 | NUR ---
Complete bed bath and linen change done at this time. Pt tolerated well. Redness noted on left wrist under shackle. Shackle removed and placed on right wrist with barrier. VSS. Oral care provided. Suction tubing and canister changed at this time. Bed locked and in lowest position, safety precautions in place. Will continue with care.
--- NOTE | 2019-11-22 05:18 | NUR ---
Central line dressing change Complete at this time. Sterile technique used. Pt tolerated well. Dated, timed and initialed.
[2019-11-22] MEDS: HYDROCORTISONE SOD SUCC 100 MG/2ML INJ VIAL IV SCH ×3 (06:31→21:58)
[2019-11-22] MEDS: PHENYLEPHRINE INJ 80 MG in SODIUM CHL 0.9% 250 ML IV SCH (07:27)
[2019-11-22] MEDS: EPINEPHrine HCL INJECTION 8 MG in D5W 5% 250 ML IV SCH (07:45)
--- NOTE | 2019-11-22 08:47 | NUR ---
PT TAKEN TO CT SCAN SARAH MCKAY RN AND TWO GUARDS ARE ACCOMPANYING PT TO CT
[2019-11-22] MEDS ORDERED: DEXTROSE (50%) 50ML SYRG IV SCH (09:15)
--- NOTE | 2019-11-22 09:20 | NUR ---
BACK FROM CT SCAN PT BACK FROM CT SCAN, STABLE, PLACED BACK ON MONITOR, REASSESSED.
[2019-11-22] MEDS: PANTOPRAZOLE 40 MG/10 ML VIAL INJ IV SCH (09:42)
[2019-11-22] MEDS: ENOXAPARIN SOD 40 MG/0.4 ML SYRINGE SC SCH (09:42)
[2019-11-22] MEDS: NICOTINE 21MG/24 HR TOPICAL PATCH TD SCH (09:43)
[2019-11-22] MEDS: ALBUMIN 25% 100 ML IV SCH (09:44)
[2019-11-22] MEDS: fentaNYL Drip 2500mCg/250mlNS 250 ML IV SCH ×2 (09:46→22:15)
--- NOTE | 2019-11-22 10:40 | NUR ---
WOUND CARE NURSE AT BEDSIDE
--- NOTE | 2019-11-22 10:50 | NUR ---
WOUND CARE NOTE: Wound care in to see patient for skin integrity monitoring and assessment of skin issue noted by bedside nurse upon assessment. Bedside nurse noted red/brown area to patient's medial sacrum upon assessment, took photograph upon discovery for reference. Patient continue resting in ICU bed in Rm. 103. Patient is intubated, sedated and mechanically ventilated. Patient appears to be no pain using Conde Adbul Faces Pain Scale. His Irwin score is 12. Skin/wound assessment done with the assistance of patient's nurse, MICHAEL Butcher. Patient's medial sacral noted with 2x1.2cm red/brown non-blanchable skin. Skin is intact with pink surrounding skin. Patient's skin issue is underdetermine if Stage 1 pressure injury or a namita. It is noted that patient attempted to be seen by wound care nurse, MICHAEL Malin on 11/19/19 but not fully assessed due to bedside procedure at that time. Jenise care given, applied Z Guard cream and covered sacrum with Opti foam sacral dressing. Patient tolerated well. MICHAEL Butcher and guards at bedside. RECOMMENDATION: Continuation of all wound care orders prescribed by MD, continue with skin/wound plan of care, continue monitoring by wound care while patient is hospitalized. Addendum: 11/22/19 at 1750 by Florinda Trujillo RN Amended: Links added.
[2019-11-22] MEDS ORDERED: ACCU-CHEK COMFORT CURVE STRIP VI SCH (12:00)
[2019-11-22] MEDS ORDERED: InsuLIN REG 1unit/0.01ml Soln (100units/ml) SC SCH (12:00)
--- NOTE | 2019-11-22 13:05 | NUR ---
Nutrition Follow-up/CONSULT Wt.: 100.00 kg today Pt is intubated, sedated, with guards by bedside when rounded this morning. Currently NPO with Clinimix TPN support running @42ml/hr. Noted new PN order for tonight of 1145.1 ml @48ml/hr providing 1090 kcal and 60g Protein, 850 NPCs. Pt with inadequate PN support aeb 53% to 61% of estimated caloric needs and 67% to 83% protein needs. Est. energy needs: 4438-2125 kcals (20-23 kcal/kgBW). Est. protein needs: 72-90 gms/day (0.8-1.0 gm/kgBW). Will continue to monitor pertinent labs and reassess nutrient needs prn. Labs 11/21: CO2 37 H, anion gap 3 L, BUN 36 H, serum glucose 178 H, POC 161 H, Ca 7 L, P 2.2 L, total bilirubin 1.1 H, AST 56 H, Alkaline phosphatase 150 H, TP 5.9 L, Albumin 1.7 L, Prealbumin 3.3 L, TG 259 H. Skin: Irwin scale 12, high risk, skin intact per bun icer. PES: 1) Altered nutrition related lab values r/t current medical condition aeb hyponatremia, elevated RFTs, hyperglycemia, hypocalcemia, elev Bili, severe hypoalbuminemia Will continue to monitor NPO status, skin status, pertinent labs and weight trend. F/u in 2 to 3 days. Recommendations: 1) Continue to closely monitor pt NPO status. 2) Advance to EN support or Oral diet when appropriate. 3) If albumin continues trending down, consider Prostat 1 pkt BID 4) Continue current plan of care.
--- NOTE | 2019-11-22 14:01 | NUR ---
DR. BARNETT PAGED REGARDING CT RESULTS AWAITING CALLBACK
[2019-11-22] MEDS: NOREPINEPHRINE BITARTRATE 16 MG in D5W 5% 250 ML IV SCH (15:04)
--- NOTE | 2019-11-22 15:05 | NUR ---
SPOKE TO Margo HUMPHREYS CONTINUING INSULIN DRIP WITH Q90 ACC CHECKS. DC Q6H PER MD ORDER
--- NOTE | 2019-11-22 15:12 | NUR ---
DR BARNETT PAGED
--- NOTE | 2019-11-22 18:45 | NUR ---
DR. CARABALLO AT BEDSIDE PER STOP INSULIN DRIP, PLACE ON ACC Q6H AND INSULIN PER TPN PROTOCOL
[2019-11-22] MEDS ORDERED: TPN PER PHARMACY IV NR ×8 (20:00)
[2019-11-22] MEDS: MIDAZOLAM DRIP 50 mg/50mL 50 ML IV SCH ×2 (20:10→22:40)
--- NOTE | 2019-11-22 20:44 | NUR ---
Cooling measures, skin assessment TPN started, insulin gtt d/c. Cooling measures initiated for temp 99.3. Shackles moved from right wrist to left wrist. Skin barrier placed under shackle around bony prominence. Right wrist noted to have redness with no skin break down. Bilateral ankle skin assessment done, no skin integrity issues noted. Barrier placed between shackles and skin. Will continue with care.
--- NOTE | 2019-11-22 22:25 | NUR ---
Chest tube dressing Chest tube dressing changed. Insertion site cleaned with clorahexadine. Petroleum gauze and pressure dressing applied. Pt waking up with stimulation. Sedation increased as VS tolerate. Chest tube continues to produce light brown fluid.
[2019-11-23] VITALS (107 sets, daily range): BP systolic 89–168; BP diastolic 40–120
[2019-11-23] MEDS ORDERED: DEXTROSE (50%) 50ML SYRG IV SCH
[2019-11-23] MEDS: ACCU-CHEK COMFORT CURVE STRIP VI SCH ×4 (00:02→18:00)
[2019-11-23] MEDS: InsuLIN REG 1unit/0.01ml Soln (100units/ml) SC SCH ×4 (00:02→18:01)
[2019-11-23] MEDS: LINEZOLID 600MG/300ML 300 ML IV SCH ×2 (00:08→12:33)
[2019-11-23] MEDS: VASOPRESSIN 50 UNITS in D5W 5% 247.5 ML IV SCH (01:30)
[2019-11-23] MEDS: MEROPENEM 1GM IVPB 100 ML IV SCH ×3 (02:00→18:10)
[2019-11-23 04:12] LABS: INR 1.08 (0.9-1.15)
[2019-11-23] MEDS: PROPOFOL 100 ML IV SCH ×5 (04:13→20:59)
[2019-11-23] MEDS: MIDAZOLAM DRIP 50 mg/50mL 50 ML IV SCH ×2 (04:14→13:42)
[2019-11-23 04:18] LABS: Potassium 4.3 mmol/L (3.5-5.1)
[2019-11-23 04:29] LABS: Albumin 1.7 g/dL (3.4-5.0); BUN/Creatinine Ratio 40.9; Bilirubin, Total 0.8 mg/dL (0.2-1.0); Calcium 6.9 mg/dL (8.5-10.1); Magnesium 2.2 mg/dL (1.6-2.6); Phosphorus 2.8 mg/dL (2.5-4.90); Total Protein 5.4 g/dL (6.4-8.2)
--- NOTE | 2019-11-23 07:20 | NUR ---
Opening note Assumed care of patient at this time. Report received from apparel manufacture instructor RN. POC reviewed. Received pt intubated on P/C 5, Rate 24, FIO2 35, PEEP 5 size 8 tube placement 26 @lip. Sedated with Versed @8, Propofol @40, Fentanyl @200 and pressor of Levophed @5. Received pt with right chest tube to 20 cm of suction, brown fluid draining. Ogt to LIS. Goldstein catheter draining to gravity. Right Intrajugular Central line and a Left axillary mid line both intact and patent. PT has shackles on both ankles and left wrist with barriers. Skin intact under shackles. Guards at bedside. VSS. Bed locked and in lowest position, safety precautions in place. Will continue to monitor pt carefully. Addendum: 11/23/19 at 1221 by Sofiya Mixon RN RN Left axillary riley, not a midline.
[2019-11-23] MEDS: PHENYLEPHRINE INJ 80 MG in SODIUM CHL 0.9% 250 ML IV SCH (07:27)
[2019-11-23] MEDS: EPINEPHrine HCL INJECTION 8 MG in D5W 5% 250 ML IV SCH (07:45)
[2019-11-23 08:25] LABS: Hematocrit 33.7 % (41.0-53.0); Hemoglobin 11.1 g/dL (13.5-17.5); Mean Corpuscular Hemoglobin 29.2 pg (28.0-32.0); Mean Corpuscular Volume 88.7 fL (80.0-100.0); Platelet Count (auto) 395 10^3/uL (140-450); White Blood Cell 8.3 10^3/uL (4.4-10.8)
[2019-11-23 08:29] LABS: Basophils % (manual) 0 (0.0-2.0); Blast Cells 0; Eosinophils % (manual) 0 (0-7); Metamyelocytes % 0; Myelocytes % 0; Promyelocytes % 0
--- NOTE | 2019-11-23 08:50 | NUR ---
MD Call Dr. Ayala and left message to his exchange to ask about Bronchoscopy. Awaiting call back.
[2019-11-23 09:16] LABS: Band Neutrophils % (manual) 1; Lymphocytes % (manual) 6 (10.0-50.0); Monocytes % (manual) 1 (0-12); Reactive Lymphocytes 1
[2019-11-23] MEDS: fentaNYL Drip 2500mCg/250mlNS 250 ML IV SCH ×2 (09:57→22:28)
[2019-11-23] MEDS: ENOXAPARIN SOD 40 MG/0.4 ML SYRINGE SC SCH (10:00)
--- NOTE | 2019-11-23 10:00 | NUR ---
GTTS Versed GTT's decreased to 6 mcg.
[2019-11-23] MEDS: ALBUMIN 25% 100 ML IV SCH (10:03)
[2019-11-23] MEDS: PANTOPRAZOLE 40 MG/10 ML VIAL INJ IV SCH (10:03)
[2019-11-23] MEDS: HYDROCORTISONE SOD SUCC 100 MG/2ML INJ VIAL IV SCH ×2 (10:04→20:58)
--- NOTE | 2019-11-23 10:30 | NUR ---
MD Dr. Ayala @ bedside ordered Bronchoscopy for tomorrow 11/24/2019 and consent signed.
--- NOTE | 2019-11-23 10:35 | NUR ---
MD Dr. Smalls @ bedside looking to do surgery Wednesday or Wednesday Dr. Smalls talked to Dr. Ayala.
--- NOTE | 2019-11-23 12:25 | NUR ---
IV insertion Peripheral IV access obtained, via clean sterile technique by inserting 20 gauge catheter at Left wrist after 1 attempt(s). IV secured properly. No trauma to site. Patient tolerated procedure well.
--- NOTE | 2019-11-23 13:35 | NUR ---
UPDATE Dr. Leone from [facility] facility where patient lives call, updated him on patients status and POC.
[2019-11-23] MEDS: NOREPINEPHRINE BITARTRATE 16 MG in SODIUM CHL 0.9% 250 ML IV SCH (14:15)
--- NOTE | 2019-11-23 18:50 | NUR ---
No remarkable changes. Remains intubated and sedated and Levophed gtt continues to infuse for BP support. Bronchoscopy scheduled for 929 tomorrow at bedside with Dr. Ayala. Per Dr. Harkins, scheduled for right thoracotomy, decortication of the right lung on Wednesday.
--- NOTE | 2019-11-23 19:30 | NUR ---
REPORT RECEIVED ASSUMED CARE.
[2019-11-23] MEDS ORDERED: TPN PER PHARMACY IV NR ×9 (20:00)
--- NOTE | 2019-11-23 22:11 | NUR ---
SPUTUM SAMPLE COLLECTED AND SENT TO LAB.
[2019-11-24] VITALS (105 sets, daily range): BP systolic 84–195; BP diastolic 48–174
[2019-11-24] MEDS: ACCU-CHEK COMFORT CURVE STRIP VI SCH ×4 (00:04→17:35)
[2019-11-24] MEDS: InsuLIN REG 1unit/0.01ml Soln (100units/ml) SC SCH ×4 (00:05→17:49)
--- NOTE | 2019-11-24 00:05 | NUR ---
SERGEI @ BEDSIDE: GAVE UPDATE, SERGEI SIGNED CONSENT FOR PROCEDURE TODAY. PLACED IN CHART FOR VIEWING.
[2019-11-24] MEDS: LINEZOLID 600MG/300ML 300 ML IV SCH ×2 (00:06→12:30)
[2019-11-24] MEDS: VASOPRESSIN 50 UNITS in D5W 5% 247.5 ML IV SCH ×2 (00:19→19:50)
--- NOTE | 2019-11-24 01:33 | NUR ---
LAB @ BEDSIDE REGIS BLOOD FOR UNKNOWN REASON BY NEEDLE STICK FROM A LINE ARM THAT WASN'T BANDED. ASKED LAB WHAT LAB DRAW WAS FOR THEY SAID TROPONIN NOTIFIED THEM PT HAD A LINE AND THEY SHOULD NOT HAVE DRAWN FROM THAT ARM. ASKED THEM TO PLACE ARM RESTRICTION BAND ON THAT ARM FOR ME. CHECKED EMR NO ORDER FOR TROPONIN ORDERED. NOTIFIED THEM THAT THERE IS NO ORDER AND NOTIFY RN IF THEY HAVE LAB DRAW DUE TO CRITICAL STATUS OF PT'S IN THIS UNIT. ALSO NOTICED OGT PULLED AND DISLODGED WITH BILE LEAKING ON FLOOR. NOTICED TUBE HOOKED UP TO WALL SUCTION INCORRECTLY. PLACED NEW NGT TO RT NARE, AUSCULTATED PLACEMENT HOOKED SUCTION BACK TO WALL CORRECTLY. WILL PLACE CXR FOR AM TO CONFIRM TUBE AND LINE PLACEMENTS THIS AM.
[2019-11-24] MEDS: MEROPENEM 1GM IVPB 100 ML IV SCH ×3 (02:30→17:47)
[2019-11-24 04:38] LABS: Basophils # (auto) 0 10 ^3/uL (0-0.2); Basophils % (auto) 0.2 % (0.0-2.0); Eosinophils # (auto) 0 10 ^3/uL (0-0.8); Eosinophils % (auto) 0.1 % (0.0-7.0); Hematocrit 33.8 % (41.0-53.0); Hemoglobin 11.3 g/dL (13.5-17.5); Lymphocytes # (auto) 0.4 10 ^3/uL (0.4-5.4); Mean Corpuscular Hemoglobin 29.4 pg (28.0-32.0); Mean Corpuscular Hgb Conc. 33.5 g/dL (32.0-36.0); Mean Corpuscular Volume 87.9 fL (80.0-100.0); Monocytes # (auto) 0.1 10 ^3/uL (0-1.3); Neutrophils # (auto) 6.3 10 ^3/uL (1.6-8.6); Neutrophils % (auto) 91.7 % (37.0-80.0); Platelet Count (auto) 327 10^3/uL (140-450); Red Blood Cells 3.84 10^6/uL (4.5-5.90); Red Cell Distribution Width 14.8 % (11.8-14.3); White Blood Cell 6.9 10^3/uL (4.4-10.8)
[2019-11-24 04:48] LABS: Potassium 4.1 mmol/L (3.5-5.1)
[2019-11-24 04:55] LABS: Albumin 1.8 g/dL (3.4-5.0); BUN/Creatinine Ratio 41.2; Bilirubin, Total 0.8 mg/dL (0.2-1.0); Calcium 7.4 mg/dL (8.5-10.1); Magnesium 2.5 mg/dL (1.6-2.6); Phosphorus 2.6 mg/dL (2.5-4.90); Total Protein 5.6 g/dL (6.4-8.2)
--- NOTE | 2019-11-24 05:35 | NUR ---
Patient bathe/linen change Patient given complete bath. Skin integrity assessed for any changes. Linens changed. Patient repositioned for comfort.
[2019-11-24] MEDS: PHENYLEPHRINE INJ 80 MG in SODIUM CHL 0.9% 250 ML IV SCH ×2 (07:27→19:50)
[2019-11-24] MEDS: EPINEPHrine HCL INJECTION 8 MG in D5W 5% 250 ML IV SCH ×2 (07:31→19:50)
[2019-11-24] MEDS ORDERED: SODIUM CHLORIDE LOCK 10 ML ONE (08:28)
[2019-11-24] MEDS ORDERED: fentaNYL CITRATE 100 MCG/2 ML VL ONE (08:28)
[2019-11-24] MEDS ORDERED: NALOXONE HCL 0.4 MG/ML VIAL ONE (08:28)
[2019-11-24] MEDS ORDERED: FLUMAZENIL 0.1 MG/ML INJ 10ML MDV IV ONE (08:28)
[2019-11-24] MEDS ORDERED: MIDAZOLAM HCL 5 MG/ML-1ML VIAL ONE (08:28)
[2019-11-24] MEDS ORDERED: LIDOCAINE 2%HCL (LOCAL ANESTH.) INJ 20ML MDV ONE (08:29)
[2019-11-24] MEDS ORDERED: EPINEPHrine HCL 1 MG/1 ML AMP ONE (08:30)
[2019-11-24] MEDS ORDERED: LIDOCAINE HCL 2% TOP JELLY 5ML TOP ONE (08:30)
[2019-11-24] MEDS ORDERED: ACETYLCYSTEINE 10 %(100MG/ML) SOL 4ML NEB ONE (08:45)
--- NOTE | 2019-11-24 10:08 | NUR ---
DR. JUAN DOING BRONCH AT BEDSIDE. SEE REPORT.
--- NOTE | 2019-11-24 10:55 | NUR ---
BRONCHOSCOPY COMPLETED, PT TOLERATED PROCEDURE WELL. VITALS HR 107, RR 24, SPO2 98%, BP 125/62. PROCEDURE WENT WITHOUT INCIDENT.
[2019-11-24] MEDS: PANTOPRAZOLE 40 MG/10 ML VIAL INJ IV SCH (11:15)
[2019-11-24] MEDS: ENOXAPARIN SOD 40 MG/0.4 ML SYRINGE SC SCH (11:15)
[2019-11-24] MEDS: HYDROCORTISONE SOD SUCC 100 MG/2ML INJ VIAL IV SCH ×2 (11:15→22:22)
[2019-11-24] MEDS: ALBUMIN 25% 100 ML IV SCH (11:17)
[2019-11-24] MEDS: NOREPINEPHRINE BITARTRATE 16 MG in SODIUM CHL 0.9% 250 ML IV SCH (14:15)
[2019-11-24] MEDS: ACETAMINOPHEN 325 MG TAB PO PRN (14:51)
--- NOTE | 2019-11-24 19:15 | NUR ---
OPENING NOTE RECEIVED REPORT FROM DAY SHIFT RN. INTUBATED AND SEDATED ON FENTANYL AND PROPOFOL TOLERATING VENTILATOR. RIGHT BACK CHEST TUBE PATENT AND CONNECTED TO WALL SUCTION. ST 104 ON BEDSIDE MONITOR, NO ECTOPY, BP 150/86 ON NO PRESSURES. NGT TO RIGHT BUTT PATENT, CLAMPED. MAY DRAINING TO GRAVITY. RIGHT IJ TLC CDI. LEFT FA 20G CDI. RIGHT UPPER ARM ARTERIAL LINE CDI, RE LEVELED AND ZEROED. TEMPERATURE 99.7 RECTAL ON COOLING MEASURES. FOR MORE INFORMATION SEE INTERVENTIONS. FOR GTTS AND THEIR TITRATIONS SEE IV SPREAD SHEET. PATIENT WITH RIGHT HANDCUFF WITH ABD PAD AND SOCK TO PREVENT SKIN BREAK DOWN. HANDCUFF TO BILATERAL ANKLES, PADDED WITH SOCKS. PILLOWS PLACED UNDER NILESH PROMINENCES. TWO CORRECTIONAL OFFICERS AT BEDSIDE. BED LOCKED AND IN LOWEST POSITION. ALL FALL AND SAFETY PRECAUTIONS IN PLACE.
[2019-11-24] MEDS: MIDAZOLAM DRIP 50 mg/50mL 50 ML IV SCH (19:50)
[2019-11-24] MEDS ORDERED: TPN PER PHARMACY IV NR ×9 (20:00)
[2019-11-24] MEDS: PROPOFOL 100 ML IV SCH (21:30)
[2019-11-25] VITALS (106 sets, daily range): BP systolic 83–169; BP diastolic 55–129
[2019-11-25] MEDS: InsuLIN REG 1unit/0.01ml Soln (100units/ml) SC SCH ×4 (00:10→17:22)
[2019-11-25] MEDS: ACCU-CHEK COMFORT CURVE STRIP VI SCH ×4 (00:10→17:17)
[2019-11-25] MEDS: fentaNYL Drip 2500mCg/250mlNS 250 ML IV SCH ×2 (00:10→12:20)
[2019-11-25] MEDS: LINEZOLID 600MG/300ML 300 ML IV SCH ×2 (00:11→12:07)
[2019-11-25] MEDS: PROPOFOL 100 ML IV SCH ×4 (01:27→20:00)
[2019-11-25] MEDS: MEROPENEM 1GM IVPB 100 ML IV SCH ×3 (02:16→17:21)
[2019-11-25 03:49] LABS: Basophils # (auto) 0 10 ^3/uL (0-0.2); Basophils % (auto) 0.1 % (0.0-2.0); Eosinophils # (auto) 0 10 ^3/uL (0-0.8); Eosinophils % (auto) 0.2 % (0.0-7.0); Hematocrit 34.6 % (41.0-53.0); Hemoglobin 11.4 g/dL (13.5-17.5); Lymphocytes # (auto) 0.5 10 ^3/uL (0.4-5.4); Lymphocytes % (auto) 5.2 % (10.0-50.0); Mean Corpuscular Hemoglobin 28.8 pg (28.0-32.0); Mean Corpuscular Volume 87.2 fL (80.0-100.0); Monocytes # (auto) 0.2 10 ^3/uL (0-1.3); Monocytes % (auto) 2.3 % (0.0-12.0); Neutrophils # (auto) 8.1 10 ^3/uL (1.6-8.6); Neutrophils % (auto) 92.2 % (37.0-80.0); Platelet Count (auto) 313 10^3/uL (140-450); Red Blood Cells 3.97 10^6/uL (4.5-5.90); Red Cell Distribution Width 14.9 % (11.8-14.3); White Blood Cell 8.8 10^3/uL (4.4-10.8)
[2019-11-25 04:09] LABS: Albumin 1.9 g/dL (3.4-5.0); Calcium 7.4 mg/dL (8.5-10.1); Magnesium 2.3 mg/dL (1.6-2.6)
[2019-11-25 04:12] LABS: BUN/Creatinine Ratio 42.4; Phosphorus 2.7 mg/dL (2.5-4.90); Total Protein 5.9 g/dL (6.4-8.2)
--- NOTE | 2019-11-25 04:30 | NUR ---
BED BATH BED BATH GIVEN USING CHG WIPES AND SOAP AND WATER. SKIN REASSESSED AND NO NEW BREAK DOWN NOTED. COMPLETE LINEN CHANGE GIVEN. VSS
--- NOTE | 2019-11-25 06:00 | NUR ---
CHEST TUBE CARE DRESSING AND DRAINAGE ELECTRONIC HEAT SEAL OPERATOR CHANGED. POSSIBLE AIR LEAK, WILL INDORSE TO DAY SHIFT.
--- NOTE | 2019-11-25 06:41 | NUR ---
Respiratory note: RECEIVED PATIENT ON V18 CARESCAPE VENT ORALLY INTUBATED WITH AN 8.0 ETT SECURED VIA SYLVIE AT THE 26CM MARKING AT THE LIP, AND MECHANICALLY VENTILATED WITH THE ABOVE CHARTED SETTINGS. SPO2 96%, LUNG SOUNDS AERATED/CLEAR T/O, NO SECRETIONS WHEN SUCTIONED. SKIN IS WARM/DRY TO THE TOUCH; THERE IS AN ABRASION ON MIDDLE OF LOWER LIP FROM ETT. THERE IS A NGT PLACED IN THE RIGHT NARE, A TRIPLE LUMEN CENTRAL LINE IS PLACED IN THE RIGHT IJ,; NO OTHER ADVANCE ACCESS LINES NOTED. NON PITTING EDEMA NOTED IN BILATERAL UPPER EXTREMITIES, AND PITTING EDEMA NOTED IN BILATERAL LOWER EXTREMITIES. PATIENT IS CUFFED ON RIGHT WRIST WELL BOTH ANKLES. HE IS UNRESPONSIVE TO BOTH VERBAL/TACTILE STIMULI, AND IS SEDATED ON FENTANYL AND PROPOFOL DRIPS.. NO NEW CXR TO ASSESS AT THIS TIME. PATIENT IS RESTING COMFORTABLY AND TOLERATING VENT WELL, NO CHANGES MADE. VENT PLUGGED INTO RED OUTLET AND ALL ALARMS ARE SET AND AUDIBLE. WILL CONTINUE TO ASSESS PATIENT WELL VENTILATOR FUNCTION.
[2019-11-25] MEDS ORDERED: TPN PER PHARMACY IV SCH ×8 (09:15)
[2019-11-25] MEDS: ALBUMIN 25% 100 ML IV SCH (09:35)
[2019-11-25] MEDS: HYDROCORTISONE SOD SUCC 100 MG/2ML INJ VIAL IV SCH ×2 (10:03→21:41)
[2019-11-25] MEDS: ENOXAPARIN SOD 40 MG/0.4 ML SYRINGE SC SCH (10:03)
[2019-11-25] MEDS: PANTOPRAZOLE 40 MG/10 ML VIAL INJ IV SCH (10:03)
[2019-11-25] MEDS: NOREPINEPHRINE BITARTRATE 16 MG in SODIUM CHL 0.9% 250 ML IV SCH (14:15)
--- NOTE | 2019-11-25 19:15 | NUR ---
OPENING NOTE RECEIVED REPORT FROM DAY SHIFT RN. INTUBATED AND SEDATED ON FENTANYL AND PROPOFOL TOLERATING VENTILATOR. RIGHT BACK CHEST TUBE PATENT AND CONNECTED TO WALL SUCTION. SR 96 ON BEDSIDE MONITOR, NO ECTOPY, BP 119/71 ON NO PRESSURES. NGT TO RIGHT BUTT PATENT, CLAMPED. MAY DRAINING TO GRAVITY. RIGHT IJ TLC CDI. LEFT FA 20G CDI. RIGHT UPPER ARM ARTERIAL LINE CDI, RE LEVELED AND ZEROED. FOR MORE INFORMATION SEE INTERVENTIONS. FOR GTTS AND THEIR TITRATIONS SEE IV SPREAD SHEET. PATIENT WITH RIGHT HANDCUFF WITH ABD PAD AND SOCK TO PREVENT SKIN BREAK DOWN. HANDCUFF TO BILATERAL ANKLES, PADDED WITH SOCKS. PILLOWS PLACED UNDER NILESH PROMINENCES. TWO CORRECTIONAL OFFICERS AT BEDSIDE. BED LOCKED AND IN LOWEST POSITION. ALL FALL AND SAFETY PRECAUTIONS IN PLACE.
[2019-11-25] MEDS ORDERED: TPN PER PHARMACY IV NR ×8 (20:00)
[2019-11-25] MEDS: MIDAZOLAM DRIP 50 mg/50mL 50 ML IV SCH (20:10)
[2019-11-25] MEDS: EPINEPHrine HCL INJECTION 8 MG in D5W 5% 250 ML IV SCH (20:29)
[2019-11-25] MEDS: VASOPRESSIN 50 UNITS in D5W 5% 247.5 ML IV SCH (20:29)
[2019-11-25] MEDS: PHENYLEPHRINE INJ 80 MG in SODIUM CHL 0.9% 250 ML IV SCH (20:29)
[2019-11-26] VITALS (104 sets, daily range): BP systolic 88–147; BP diastolic 50–82
[2019-11-26] MEDS: InsuLIN REG 1unit/0.01ml Soln (100units/ml) SC SCH ×3 (00:30→19:01)
[2019-11-26] MEDS: LINEZOLID 600MG/300ML 300 ML IV SCH ×2 (00:30→11:50)
[2019-11-26] MEDS: ACCU-CHEK COMFORT CURVE STRIP VI SCH ×3 (00:30→18:00)
[2019-11-26] MEDS: MEROPENEM 1GM IVPB 100 ML IV SCH ×3 (01:24→18:00)
[2019-11-26] MEDS: fentaNYL Drip 2500mCg/250mlNS 250 ML IV SCH ×2 (02:09→15:39)
[2019-11-26] MEDS: PROPOFOL 100 ML IV SCH ×4 (03:00→19:05)
--- NOTE | 2019-11-26 03:00 | NUR ---
BED BATH COMPLETE BED BATH GIVEN TO PATIENT. SKIN REASSESSED AND NO NEW BREAK DOWN NOTED. PATIENT TOLERATED WELL. VSS.
[2019-11-26 04:12] LABS: Basophils # (auto) 0 10 ^3/uL (0-0.2); Basophils % (auto) 0.1 % (0.0-2.0); Eosinophils # (auto) 0 10 ^3/uL (0-0.8); Eosinophils % (auto) 0.1 % (0.0-7.0); Hematocrit 33.5 % (41.0-53.0); Hemoglobin 11.2 g/dL (13.5-17.5); Lymphocytes # (auto) 0.5 10 ^3/uL (0.4-5.4); Lymphocytes % (auto) 4.7 % (10.0-50.0); Mean Corpuscular Hemoglobin 29.2 pg (28.0-32.0); Mean Corpuscular Hgb Conc. 33.3 g/dL (32.0-36.0); Mean Corpuscular Volume 87.7 fL (80.0-100.0); Monocytes # (auto) 0.2 10 ^3/uL (0-1.3); Monocytes % (auto) 2.2 % (0.0-12.0); Neutrophils # (auto) 9.4 10 ^3/uL (1.6-8.6); Neutrophils % (auto) 92.9 % (37.0-80.0); Platelet Count (auto) 312 10^3/uL (140-450); Red Blood Cells 3.82 10^6/uL (4.5-5.90); Red Cell Distribution Width 14.9 % (11.8-14.3); White Blood Cell 10.1 10^3/uL (4.4-10.8)
[2019-11-26 04:28] LABS: Albumin 1.8 g/dL (3.4-5.0); Calcium 7.1 mg/dL (8.5-10.1); Magnesium 2.1 mg/dL (1.6-2.6); Potassium 3.9 mmol/L (3.5-5.1)
[2019-11-26 04:32] LABS: BUN/Creatinine Ratio 41.1; Bilirubin, Total 0.9 mg/dL (0.2-1.0); Total Protein 5.4 g/dL (6.4-8.2)
--- NOTE | 2019-11-26 07:30 | NUR ---
REPORT RECEIVED FROM APARTMENT MAINTENANCE TECHNICIAN NURSE. PATIENT RESTING IN BED AT THIS TIME INTUBATED AND SEDATED. RESPIRATIONS EVEN AND UNLABORED. NO SIGNS OF ACUTE DISTRESS NOTED. CHEST TUBE TO RIGHT UPPER POSTERIOR BACK DRAINING SEROUS FLUID. NO NOTED CREPITUS. CONNECTED TO ATRIUM WITH SMALL AIR LEAK NOTED. BED IN LOW POSITION. WILL CONTINUE TO MONITOR.
[2019-11-26] MEDS: ALBUMIN 25% 100 ML IV SCH (10:58)
[2019-11-26] MEDS: HYDROCORTISONE SOD SUCC 100 MG/2ML INJ VIAL IV SCH (10:58)
[2019-11-26] MEDS: ENOXAPARIN SOD 40 MG/0.4 ML SYRINGE SC SCH (10:58)
[2019-11-26] MEDS: PANTOPRAZOLE 40 MG/10 ML VIAL INJ IV SCH (10:59)
[2019-11-26] MEDS: INSULIN LANTUS (GLARGINE) 1 /0.01ml (100units/ml) SC SCH ×2 (11:30→22:00)
[2019-11-26 11:58] LABS: INR 1.11 (0.9-1.15); Partial Thromboplastin Time 29.3 sec (23.64-32.05)
--- NOTE | 2019-11-26 13:09 | NUR ---
DR Margo HUMPHREYS AT BEDSIDE TO ASSESS PATIENT AND DISCUSS PLAN OF CARE.
--- NOTE | 2019-11-26 13:42 | NUR ---
DR CASTELLON AT BEDSIDE TO ASSESS PATIENT AND DISCUSS PLAN OF CARE. NO NEW ORDERS AT THIS TIME.
[2019-11-26] MEDS: NOREPINEPHRINE BITARTRATE 16 MG in SODIUM CHL 0.9% 250 ML IV SCH (14:15)
--- NOTE | 2019-11-26 15:14 | NUR ---
Nutrition Follow-up Wt.: 99.6 kg Pt is intubated, sedated, with guards by bedside when rounded this morning. Currently NPO with TPN support running @55ml/hr providing 1170 kcal, 80 gms protein and 850 NPCs. Pt with inadequate energy intake from PN support aeb 57% to 65% of est caloric needs. Protein intake from PN support is adequate aeb 89% to 111% protein needs. Noted propofol running @21.6 ml/hr providing additional 570 kcals. Noted new PN order for tonight @60ml/hr. Est. energy needs: 0919-1192 kcals (20-23 kcal/kgBW). Est. protein needs: 72-90 gms/day (0.8-1.0 gm/kgBW). Will continue to monitor pertinent labs and reassess nutrient needs prn. Labs 11/25: TP 5.4 L, CO2 33 H, BUN 37 H, serum glucose 274 H, albumin 1.8 L, Ca 7.1 L Skin: Irwin scale 12, high risk, DTI vs birthmark to posterior medial sacrum per baggage inspector. PES: 1) Altered nutrition related lab values r/t current medical condition aeb hyponatremia, elevated RFTs, hyperglycemia, hypocalcemia, elev Bili, severe hypoalbuminemia Will continue to monitor NPO status, skin status, pertinent labs and weight trend. F/u in 2 to 3 days. Recommendations: 1) Continue to closely monitor pt NPO status. 2) Advance to EN support or Oral diet when appropriate. 3) If albumin continues trending down, consider Prostat 1 pkt BID 4) Continue current plan of care.
--- NOTE | 2019-11-26 15:36 | NUR ---
DR JUAN AT BEDSIDE TO ASSESS PATIENT AND DISCUSS PLAN OF CARE. NO NEW ORDERS AT THIS TIME. Addendum: 11/26/19 at 2012 by Phylicia Faust RN AWARE OF INTERMITTENT BUBBLING FROM CHEST TUBE. NO NEW ORDERS AT THIS TIME.
--- NOTE | 2019-11-26 17:57 | NUR ---
DR Stephanie HUMPHREYS AT BEDSIDE TO ASSESS PATIENT AND DISCUSS PLAN . NO NEW ORDERS AT THIS TIME.
[2019-11-26] MEDS ORDERED: TPN PER PHARMACY IV NR ×8 (20:00)
[2019-11-26] MEDS: MIDAZOLAM DRIP 50 mg/50mL 50 ML IV SCH (20:10)
[2019-11-26] MEDS: METOCLOPRAMIDE HCL 5MG/ml INJ 2ml VIAL IV SCH (22:00)
[2019-11-27] VITALS (106 sets, daily range): BP systolic 85–167; BP diastolic 48–87
[2019-11-27] MEDS: ACCU-CHEK COMFORT CURVE STRIP VI SCH ×5 (00:17→23:45)
[2019-11-27] MEDS: InsuLIN REG 1unit/0.01ml Soln (100units/ml) SC SCH ×5 (00:18→23:45)
[2019-11-27] MEDS: LINEZOLID 600MG/300ML 300 ML IV SCH ×2 (00:32→12:30)
--- NOTE | 2019-11-27 01:00 | NUR ---
PT. IS ASYNCHRONOUS WITH THE VENT; WILL INCREASE SEDATION TO MAINTAIN PROPER VENTILATION; WILL CONT. TO MONITOR.
[2019-11-27] MEDS: VASOPRESSIN 50 UNITS in D5W 5% 247.5 ML IV SCH (01:30)
[2019-11-27] MEDS: MEROPENEM 1GM IVPB 100 ML IV SCH ×3 (02:00→17:55)
[2019-11-27 04:28] LABS: Basophils # (auto) 0 10 ^3/uL (0-0.2); Basophils % (auto) 0.1 % (0.0-2.0); Eosinophils # (auto) 0.2 10 ^3/uL (0-0.8); Eosinophils % (auto) 1.6 % (0.0-7.0); Hematocrit 33.9 % (41.0-53.0); Hemoglobin 11.2 g/dL (13.5-17.5); Lymphocytes % (auto) 7.6 % (10.0-50.0); Mean Corpuscular Hemoglobin 28.7 pg (28.0-32.0); Mean Corpuscular Volume 86.9 fL (80.0-100.0); Monocytes # (auto) 0.4 10 ^3/uL (0-1.3); Monocytes % (auto) 2.9 % (0.0-12.0); Neutrophils % (auto) 87.8 % (37.0-80.0); Platelet Count (auto) 299 10^3/uL (140-450); Red Cell Distribution Width 14.6 % (11.8-14.3); White Blood Cell 13.6 10^3/uL (4.4-10.8)
[2019-11-27 04:47] LABS: Albumin 1.8 g/dL (3.4-5.0); Calcium 7.3 mg/dL (8.5-10.1); Potassium 3.4 mmol/L (3.5-5.1)
[2019-11-27 04:52] LABS: BUN/Creatinine Ratio 46.2; Bilirubin, Total 0.9 mg/dL (0.2-1.0); Phosphorus 2.3 mg/dL (2.5-4.90); Total Protein 5.3 g/dL (6.4-8.2)
[2019-11-27] MEDS: METOCLOPRAMIDE HCL 5MG/ml INJ 2ml VIAL IV SCH ×3 (06:00→22:18)
[2019-11-27] MEDS ORDERED: POTASSIUM CHL 20MEQ/100ML 100 ML IV ONE ×2 (06:45→06:51)
[2019-11-27] MEDS: PHENYLEPHRINE INJ 80 MG in SODIUM CHL 0.9% 250 ML IV SCH (07:27)
[2019-11-27] MEDS: EPINEPHrine HCL INJECTION 8 MG in D5W 5% 250 ML IV SCH (07:45)
[2019-11-27] MEDS: ALBUMIN 25% 100 ML IV SCH (09:20)
[2019-11-27] MEDS: HYDROCORTISONE SOD SUCC 100 MG/2ML INJ VIAL IV SCH (10:13)
[2019-11-27] MEDS: ENOXAPARIN SOD 40 MG/0.4 ML SYRINGE SC SCH (10:13)
[2019-11-27] MEDS: PANTOPRAZOLE 40 MG/10 ML VIAL INJ IV SCH (10:13)
[2019-11-27] MEDS: INSULIN LANTUS (GLARGINE) 1 /0.01ml (100units/ml) SC SCH ×2 (10:15→22:20)
[2019-11-27] MEDS ORDERED: POTASSIUM PHOSP 22MEQ(15MMOLE) in NS 100 ML IV ONE (11:00)
[2019-11-27] MEDS: PROPOFOL 100 ML IV SCH ×2 (12:40→22:13)
--- NOTE | 2019-11-27 13:10 | NUR ---
DR. CASTELLON HERE TO SEE PATIENT. SEE MD NOTES.
--- NOTE | 2019-11-27 13:18 | NUR ---
FROM [facility] CALLED AND UPDATED ON POC.
[2019-11-27] MEDS: NOREPINEPHRINE BITARTRATE 16 MG in SODIUM CHL 0.9% 250 ML IV SCH (14:15)
[2019-11-27] MEDS ORDERED: FLUCONAZOLE 200MG/100ML 100 ML IV SCH ×2 (15:21→17:00)
--- NOTE | 2019-11-27 16:00 | NUR ---
DR. JUAN AT BEDSIDE. SEE MD NOTES.
[2019-11-27] MEDS: fentaNYL Drip 2500mCg/250mlNS 250 ML IV SCH (16:03)
[2019-11-27] MEDS ORDERED: TPN PER PHARMACY IV NR ×9 (20:00)
[2019-11-27] MEDS: MIDAZOLAM DRIP 50 mg/50mL 50 ML IV SCH (20:10)
[2019-11-27] MEDS: FLUCONAZOLE 200MG/100ML 100 ML IV SCH ×2 (22:17→23:23)
[2019-11-28] VITALS (106 sets, daily range): BP systolic 72–158; BP diastolic 44–136
[2019-11-28] MEDS: LINEZOLID 600MG/300ML 300 ML IV SCH ×3 (00:25→23:39)
[2019-11-28] MEDS: VASOPRESSIN 50 UNITS in D5W 5% 247.5 ML IV SCH (01:30)
[2019-11-28] MEDS: MEROPENEM 1GM IVPB 100 ML IV SCH ×3 (02:17→17:44)
[2019-11-28] MEDS: PROPOFOL 100 ML IV SCH ×2 (03:11→20:49)
[2019-11-28 04:15] LABS: Basophils # (auto) 0 10 ^3/uL (0-0.2); Basophils % (auto) 0.2 % (0.0-2.0); Eosinophils # (auto) 0.1 10 ^3/uL (0-0.8); Eosinophils % (auto) 0.9 % (0.0-7.0); Hematocrit 29.8 % (41.0-53.0); Lymphocytes # (auto) 0.8 10 ^3/uL (0.4-5.4); Lymphocytes % (auto) 5.4 % (10.0-50.0); Mean Corpuscular Hemoglobin 29.3 pg (28.0-32.0); Mean Corpuscular Hgb Conc. 33.6 g/dL (32.0-36.0); Mean Corpuscular Volume 87.2 fL (80.0-100.0); Monocytes # (auto) 0.4 10 ^3/uL (0-1.3); Monocytes % (auto) 2.6 % (0.0-12.0); Neutrophils % (auto) 90.9 % (37.0-80.0); Platelet Count (auto) 282 10^3/uL (140-450); Red Blood Cells 3.42 10^6/uL (4.5-5.90); White Blood Cell 14.4 10^3/uL (4.4-10.8)
[2019-11-28 04:31] LABS: Albumin 1.7 g/dL (3.4-5.0); Magnesium 2.1 mg/dL (1.6-2.6); Potassium 3.4 mmol/L (3.5-5.1)
[2019-11-28 04:34] LABS: Bilirubin, Total 0.8 mg/dL (0.2-1.0); Phosphorus 2.2 mg/dL (2.5-4.90); Total Protein 4.8 g/dL (6.4-8.2)
[2019-11-28] MEDS: fentaNYL Drip 2500mCg/250mlNS 250 ML IV SCH (05:36)
[2019-11-28] MEDS: METOCLOPRAMIDE HCL 5MG/ml INJ 2ml VIAL IV SCH ×3 (05:36→22:14)
[2019-11-28] MEDS: ACCU-CHEK COMFORT CURVE STRIP VI SCH ×4 (05:39→23:39)
[2019-11-28] MEDS: InsuLIN REG 1unit/0.01ml Soln (100units/ml) SC SCH ×4 (05:49→23:44)
[2019-11-28] MEDS: PHENYLEPHRINE INJ 80 MG in SODIUM CHL 0.9% 250 ML IV SCH (07:24)
[2019-11-28] MEDS: EPINEPHrine HCL INJECTION 8 MG in D5W 5% 250 ML IV SCH (07:24)
[2019-11-28] MEDS: ALBUMIN 25% 100 ML IV SCH (08:55)
--- NOTE | 2019-11-28 09:50 | NUR ---
RR DECREASED TO [address] JUAN. ABG IN 2 HOURS
[2019-11-28] MEDS: PANTOPRAZOLE 40 MG/10 ML VIAL INJ IV SCH (10:26)
[2019-11-28] MEDS: HYDROCORTISONE SOD SUCC 100 MG/2ML INJ VIAL IV SCH (10:27)
[2019-11-28] MEDS: ENOXAPARIN SOD 40 MG/0.4 ML SYRINGE SC SCH (10:27)
[2019-11-28] MEDS: INSULIN LANTUS (GLARGINE) 1 /0.01ml (100units/ml) SC SCH ×2 (10:29→22:00)
[2019-11-28] MEDS ORDERED: POTASSIUM PHOSP 22MEQ(15MMOLE) in NS 100 ML IV ONE (11:00)
[2019-11-28] MEDS: NOREPINEPHRINE BITARTRATE 16 MG in SODIUM CHL 0.9% 250 ML IV SCH (14:15)
--- NOTE | 2019-11-28 16:00 | NUR ---
VENT CHANGES PER DR. JUAN PT ON PCV: Pi 20 AND RR 16. ABG IN 2 HOURS.
--- NOTE | 2019-11-28 19:00 | NUR ---
Opening note Assumed care of patient at this time. Report received from day shift RN. POC reviewed. Head to toe assessment complete, see intervention spreadsheet for complete details. Received pt intubated, sedated. Received pt with right chest tube to 20 cm of suction, brown fluid draining. Ogt to LIS. Goldstein catheter draining to gravity. IV site benign. PT has shackles on both ankles and left wrist with barriers. Skin intact under shackles. Guards at bedside. VSS. Bed locked and in lowest position, safety precautions in place. Will monitor pt carefully.
[2019-11-28] MEDS ORDERED: TPN PER PHARMACY IV NR ×10 (20:00)
[2019-11-28] MEDS: MIDAZOLAM DRIP 50 mg/50mL 50 ML IV SCH (20:10)
--- NOTE | 2019-11-28 20:15 | NUR ---
AT BEDSIDE DR HUMPHREYS BEDSIDE TO ASSESS PT, MD SIGNED CONSENTS AT THIS TIME. NO NEW ORDERS RECEIVED.
[2019-11-28] MEDS: FLUCONAZOLE 200MG/100ML 100 ML IV SCH ×2 (22:14→23:00)
[2019-11-29] VITALS (104 sets, daily range): BP systolic 90–144; BP diastolic 50–75
[2019-11-29] MEDS: VASOPRESSIN 50 UNITS in D5W 5% 247.5 ML IV SCH (01:30)
[2019-11-29] MEDS: MEROPENEM 1GM IVPB 100 ML IV SCH ×3 (02:00→18:19)
[2019-11-29 04:54] LABS: Basophils # (auto) 0 10 ^3/uL (0-0.2); Basophils % (auto) 0.3 % (0.0-2.0); Eosinophils # (auto) 0.1 10 ^3/uL (0-0.8); Hematocrit 30.7 % (41.0-53.0); Hemoglobin 10.1 g/dL (13.5-17.5); Lymphocytes # (auto) 0.9 10 ^3/uL (0.4-5.4); Lymphocytes % (auto) 6.6 % (10.0-50.0); Mean Corpuscular Hemoglobin 28.6 pg (28.0-32.0); Mean Corpuscular Hgb Conc. 32.8 g/dL (32.0-36.0); Monocytes # (auto) 0.4 10 ^3/uL (0-1.3); Monocytes % (auto) 3.1 % (0.0-12.0); Neutrophils # (auto) 12.8 10 ^3/uL (1.6-8.6); Platelet Count (auto) 315 10^3/uL (140-450); Red Blood Cells 3.53 10^6/uL (4.5-5.90); Red Cell Distribution Width 14.8 % (11.8-14.3); White Blood Cell 14.4 10^3/uL (4.4-10.8)
--- NOTE | 2019-11-29 05:35 | NUR ---
SHIFT SUMMARY NO CHANGES TO NOTE. PT OPENS EYES SPONTANEOUSLY AND MOVES UPPER EXTREMITIES. VS REMAINED STABLE.MORNING LABS AND XRAY COMPLETED. WILL CONTINUE WITH CARE.
[2019-11-29] MEDS: ACCU-CHEK COMFORT CURVE STRIP VI SCH ×3 (06:00→18:19)
[2019-11-29] MEDS: InsuLIN REG 1unit/0.01ml Soln (100units/ml) SC SCH ×3 (06:00→18:20)
[2019-11-29 06:06] LABS: Albumin 1.7 g/dL (3.4-5.0); Calcium 7.1 mg/dL (8.5-10.1); Magnesium 2.1 mg/dL (1.6-2.6); Potassium 3.4 mmol/L (3.5-5.1)
[2019-11-29 06:09] LABS: BUN/Creatinine Ratio 46.1
[2019-11-29] MEDS: METOCLOPRAMIDE HCL 5MG/ml INJ 2ml VIAL IV SCH ×3 (06:11→22:00)
[2019-11-29 06:12] LABS: Bilirubin, Total 0.8 mg/dL (0.2-1.0); Phosphorus 2.2 mg/dL (2.5-4.90); Total Protein 5.2 g/dL (6.4-8.2)
[2019-11-29] MEDS: PROPOFOL 100 ML IV SCH ×2 (07:21→21:04)
[2019-11-29] MEDS: PHENYLEPHRINE INJ 80 MG in SODIUM CHL 0.9% 250 ML IV SCH (07:27)
[2019-11-29] MEDS: EPINEPHrine HCL INJECTION 8 MG in D5W 5% 250 ML IV SCH (07:45)
--- NOTE | 2019-11-29 07:45 | NUR ---
OPENING Report received from Prasad RODRIGUEZ. Care initiated and initial assessment complete.
[2019-11-29] MEDS ORDERED: POTASSIUM PHOSPHATE 44 MEQ in D5W 5% 250 ML IV ONE (08:15)
[2019-11-29 08:48] LABS: Pre Albumin 13.9 mg/dL (20.0-40.0)
[2019-11-29] MEDS: PANTOPRAZOLE 40 MG/10 ML VIAL INJ IV SCH (10:10)
[2019-11-29] MEDS: HYDROCORTISONE SOD SUCC 100 MG/2ML INJ VIAL IV SCH (10:10)
[2019-11-29] MEDS: ALBUMIN 25% 100 ML IV SCH (10:11)
[2019-11-29] MEDS: ENOXAPARIN SOD 40 MG/0.4 ML SYRINGE SC SCH (10:11)
[2019-11-29] MEDS: INSULIN LANTUS (GLARGINE) 1 /0.01ml (100units/ml) SC SCH ×2 (10:19→22:00)
--- NOTE | 2019-11-29 10:36 | NUR ---
PAGED OR Thoracotomy cancelled as Dr. Harkins will not be in today.
[2019-11-29] MEDS: LINEZOLID 600MG/300ML 300 ML IV SCH (12:10)
[2019-11-29] MEDS: NOREPINEPHRINE BITARTRATE 16 MG in SODIUM CHL 0.9% 250 ML IV SCH (14:15)
--- NOTE | 2019-11-29 16:00 | NUR ---
BEDSIDE Dr. Coleman bedside.
[2019-11-29] MEDS: fentaNYL Drip 2500mCg/250mlNS 250 ML IV SCH (16:36)
--- NOTE | 2019-11-29 19:45 | NUR ---
Opening Shift Note: Patient intubated/sedated. ET size 8.0/24 @ lip. Vent PC rate of 14, pressure 20, FiO2 30%, and PEEP 5. Neuro: able to slightly move all extremities; follows simple commands; spontaneous eye opening; pupils 4 mm/brisk/reactive. NSR 80s; SBP 120s-140s cuff and a-line pressures. Arterial line in left axilla inserted on 11/19/19. Right CT presents with a large leak (MDs aware) with brown output. R nare NGT to LIS: dark green output. Goldstein inserted on 11/18/19: light fartun clear output. Skin: blister TOO on right side; DTI/blister to sacrum optifoam CDI. IVs: left wrist 20 g IID inserted on 11/23/19; Right IJ triple lumen inserted on 11/18/19: propofol @ 40, TPN @ 61 ml/hr, Fentanyl @ 160. Will continue to turn/perform oral care Q2H/prn.
[2019-11-29] MEDS ORDERED: TPN PER PHARMACY IV NR ×10 (20:00)
[2019-11-29] MEDS: MIDAZOLAM DRIP 50 mg/50mL 50 ML IV SCH (20:10)
--- NOTE | 2019-11-29 21:00 | NUR ---
Sedation Vacation: Will slowly taper off propofol to where patient is comfortable and hemodynamically stable: Fentanyl decreased to 150 mcg and propofol decreased to 30 at this time.
[2019-11-29] MEDS: FLUCONAZOLE 200MG/100ML 100 ML IV SCH ×2 (22:00→23:00)
[2019-11-30] VITALS (105 sets, daily range): BP systolic 95–177; BP diastolic 61–94
[2019-11-30] MEDS: fentaNYL Drip 2500mCg/250mlNS 250 ML IV SCH
[2019-11-30] MEDS ORDERED: fentaNYL Drip 2500mCg/250mlNS 250 ML IV ONE (00:19)
[2019-11-30] MEDS: InsuLIN REG 1unit/0.01ml Soln (100units/ml) SC SCH ×4 (00:30→18:13)
[2019-11-30] MEDS: ACCU-CHEK COMFORT CURVE STRIP VI SCH ×4 (00:30→18:12)
[2019-11-30] MEDS: LINEZOLID 600MG/300ML 300 ML IV SCH ×2 (00:30→11:46)
[2019-11-30] MEDS: VASOPRESSIN 50 UNITS in D5W 5% 247.5 ML IV SCH (00:48)
[2019-11-30] MEDS: MEROPENEM 1GM IVPB 100 ML IV SCH ×3 (02:00→18:12)
--- NOTE | 2019-11-30 04:30 | NUR ---
Patient bathe/linen change Patient given complete CHG bath. Skin integrity assessed for any changes. Optifoam on sacrum changed. Linens and gown changed. Patient repositioned for comfort.
[2019-11-30] MEDS: METOCLOPRAMIDE HCL 5MG/ml INJ 2ml VIAL IV SCH ×3 (06:47→22:09)
[2019-11-30 07:18] LABS: Albumin 1.8 g/dL (3.4-5.0); Calcium 7.1 mg/dL (8.5-10.1); Magnesium 2.1 mg/dL (1.6-2.6); Potassium 3.9 mmol/L (3.5-5.1)
[2019-11-30 07:24] LABS: BUN/Creatinine Ratio 43.3; Bilirubin, Total 1.2 mg/dL (0.2-1.0); Phosphorus 2.6 mg/dL (2.5-4.90); Total Protein 5.4 g/dL (6.4-8.2)
[2019-11-30] MEDS: PHENYLEPHRINE INJ 80 MG in SODIUM CHL 0.9% 250 ML IV SCH (07:27)
[2019-11-30] MEDS: EPINEPHrine HCL INJECTION 8 MG in D5W 5% 250 ML IV SCH (07:45)
--- NOTE | 2019-11-30 07:45 | NUR ---
OPENING Report received from Ashlyn RODRIGUEZ. Care initiated and initial assessment complete.
[2019-11-30] MEDS: PANTOPRAZOLE 40 MG/10 ML VIAL INJ IV SCH (11:31)
[2019-11-30] MEDS: HYDROCORTISONE SOD SUCC 100 MG/2ML INJ VIAL IV SCH (11:32)
[2019-11-30] MEDS: INSULIN LANTUS (GLARGINE) 1 /0.01ml (100units/ml) SC SCH ×2 (11:33→22:11)
[2019-11-30] MEDS: ALBUMIN 25% 100 ML IV SCH (11:45)
--- NOTE | 2019-11-30 13:00 | NUR ---
MD CARMEN preston. Addendum: 11/30/19 at 1823 by Alina Loomis RN RN WRONG PATIENT
--- NOTE | 2019-11-30 14:00 | NUR ---
BEDSIDE Dr. Ayala bedside.
[2019-11-30] MEDS: NOREPINEPHRINE BITARTRATE 16 MG in SODIUM CHL 0.9% 250 ML IV SCH (14:15)
--- NOTE | 2019-11-30 14:15 | NUR ---
Respiratory note: PT PLACE ON CPAP TRIAL PS 8, PEEP +5, PER DR JUAN ORDER. RN AWARE. PT TOLERATING VENT CHANGE WELL. WILL CONTINUE TO MONITOR PT.
--- NOTE | 2019-11-30 14:15 | NUR ---
CPAP TRIAL Patient placed on CPAP.
[2019-11-30] MEDS ORDERED: METOPROLOL TARTRATE 1MG/1ML-5ML VIAL IV PRN (14:30)
--- NOTE | 2019-11-30 15:15 | NUR ---
CPAP STOPPED Patient tachypneic. CPAP orders for AM 11/30.
[2019-11-30 16:16] LABS: Basophils # (auto) 0 10 ^3/uL (0-0.2); Basophils % (auto) 0.2 % (0.0-2.0); Eosinophils # (auto) 0 10 ^3/uL (0-0.8); Hematocrit 34.8 % (41.0-53.0); Hemoglobin 11.4 g/dL (13.5-17.5); Lymphocytes # (auto) 0.4 10 ^3/uL (0.4-5.4); Lymphocytes % (auto) 2.5 % (10.0-50.0); Mean Corpuscular Hemoglobin 28.5 pg (28.0-32.0); Mean Corpuscular Hgb Conc. 32.8 g/dL (32.0-36.0); Monocytes # (auto) 0.4 10 ^3/uL (0-1.3); Monocytes % (auto) 2.3 % (0.0-12.0); Neutrophils # (auto) 15.2 10 ^3/uL (1.6-8.6); Platelet Count (auto) 442 10^3/uL (140-450); Red Cell Distribution Width 15.1 % (11.8-14.3)
--- NOTE | 2019-11-30 19:20 | NUR ---
Opening Shift Note: Patient intubated/sedated. ET size 8.0/24 @ lip. Vent PC rate of 14, pressure 20, FiO2 30%, and PEEP 5. Neuro: able to slightly move all extremities; follows simple commands; spontaneous eye opening; pupils 5 mm/brisk/reactive. NSR 90s-ST 100S; SBP 120s-140s cuff and a-line pressures. Arterial line in left axilla inserted on 11/19/19. Right CT presents with a large leak (MDs aware) with brown output. R nare NGT to LIS: minimal dark green output. Goldstein inserted on 11/18/19: light fartun clear output. 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 IVs: left wrist 20 g IID inserted on 11/23/19; Right IJ triple lumen inserted on 11/18/19: propofol @ 25, TPN @ 61 ml/hr, Fentanyl @ 150. Will continue to turn/perform oral care Q2H/prn.
[2019-11-30] MEDS ORDERED: TPN PER PHARMACY IV NR ×11 (20:00)
[2019-11-30] MEDS: MIDAZOLAM DRIP 50 mg/50mL 50 ML IV SCH (20:10)
[2019-11-30] MEDS: PROPOFOL 100 ML IV SCH (21:27)
[2019-11-30] MEDS: FLUCONAZOLE 200MG/100ML 100 ML IV SCH ×2 (22:09→23:00)
[2019-12-01] VITALS (106 sets, daily range): BP systolic 87–229; BP diastolic 63–181
[2019-12-01] MEDS: LINEZOLID 600MG/300ML 300 ML IV SCH ×2 (00:30→09:40)
[2019-12-01] MEDS: VASOPRESSIN 50 UNITS in D5W 5% 247.5 ML IV SCH (01:03)
[2019-12-01] MEDS: MEROPENEM 1GM IVPB 100 ML IV SCH ×3 (02:12→17:36)
[2019-12-01 04:53] LABS: Albumin 1.9 g/dL (3.4-5.0); Potassium 4.2 mmol/L (3.5-5.1)
[2019-12-01] MEDS: PROPOFOL 100 ML IV SCH ×4 (05:00→21:30)
[2019-12-01 05:01] LABS: BUN/Creatinine Ratio 33.3; Bilirubin, Total 0.9 mg/dL (0.2-1.0); Magnesium 1.9 mg/dL (1.6-2.6); Phosphorus 2.3 mg/dL (2.5-4.90); Total Protein 5.8 g/dL (6.4-8.2)
[2019-12-01] MEDS: InsuLIN REG 1unit/0.01ml Soln (100units/ml) SC SCH ×4 (06:00→17:37)
[2019-12-01] MEDS: ACCU-CHEK COMFORT CURVE STRIP VI SCH ×4 (06:00→17:36)
[2019-12-01] MEDS: METOCLOPRAMIDE HCL 5MG/ml INJ 2ml VIAL IV SCH ×3 (06:00→22:00)
[2019-12-01] MEDS: PHENYLEPHRINE INJ 80 MG in SODIUM CHL 0.9% 250 ML IV SCH (07:27)
[2019-12-01] MEDS: EPINEPHrine HCL INJECTION 8 MG in D5W 5% 250 ML IV SCH (07:45)
--- NOTE | 2019-12-01 07:50 | NUR ---
OPENING Report received from Ashlyn RODRIGUEZ. Care initiated and initial assessment complete.
--- NOTE | 2019-12-01 08:15 | NUR ---
CPAP TRIAL PT AWAKE AND ALERT, ABLE TO FOLLOW SIMPLE COMMANDS. PLACED PT ON CPAP TRIAL PER DR JUAN'S ORDERS. PT TOLERATING WELL, NO S/S OF RESPIRATORY DISTRESS NOTED. ATTEMPTED WEANING PARAMETERS: NIF -23, VC 701 ML, RSBI 32, LEAK 117 ML. ABG TO FOLLOW IN ONE HOUR. MICHAEL GARCIA AT BEDSIDE, AWARE OF CHANGES. OFFICERS AT BEDSIDE. WILL CONTINUE TO MONITOR.
--- NOTE | 2019-12-01 08:15 | NUR ---
CPAP STARTED CPAP trial initiated. Patient is following commands.
--- NOTE | 2019-12-01 09:25 | NUR ---
CPAP TRIAL STOPPED CALLED DR JUAN WITH ABG RESULTS AND WEANING PARAMETERS. PT WITH INCREASED WOB AND DIAPHORETIC. STOPPED CPAP TRIAL AND CHANGED BACK TO PRESSURE CONTROL MODE ON PREVIOUS SETTINGS, PER MD'S ORDERS. NOTIFIED MICHAEL GARCIA OF CHANGES. PT NOW RESTING IN BED, NO S/S OF RESPIRATORY DISTRESS NOTED. WILL CONTINUE TO MONITOR.
--- NOTE | 2019-12-01 09:30 | NUR ---
CPAP STOPPED RT stopped CPAP d/t patient overworking. Redsedated per protocol.
[2019-12-01] MEDS: fentaNYL Drip 2500mCg/250mlNS 250 ML IV SCH ×2 (09:36→16:28)
[2019-12-01] MEDS: ALBUMIN 25% 100 ML IV SCH (09:38)
[2019-12-01] MEDS: PANTOPRAZOLE 40 MG/10 ML VIAL INJ IV SCH (09:39)
[2019-12-01] MEDS: HYDROCORTISONE SOD SUCC 100 MG/2ML INJ VIAL IV SCH (09:39)
[2019-12-01] MEDS: INSULIN LANTUS (GLARGINE) 1 /0.01ml (100units/ml) SC SCH ×2 (09:40→22:00)
--- NOTE | 2019-12-01 11:44 | NUR ---
WOUND CARE NOTE: Wound care in to see patient for skin integrity monitoring and reevaluation of sacral skin issue. Patient continue resting in ICU bed in Rm. 103. Patient is intubated, sedated and mechanically ventilated. Patient appears to be no pain using Conde Abdul Faces Pain Scale. His Irwin score is 12. Skin/wound assessment done with the assistance of patient's nurse, MICHAEL Garcia. Red/brown non-blanchable skin to patient's medial sacrum now display 2x1.5cm open partial thickness wound consistent with Stage 2 pressure injury. Wound bed is red with thin brown dry skin, with pink surrounding skin, no drainage/odor noted. There's small open partial thickness skin tear noted to his Rt buttocks. Jenise care given, applied Z Guard cream and covered sacrum with Opti foam sacral dressing. New photograph of wound are taken for reference. Patient tolerated well, repositioned for comfort on his back. MICHAEL Garcia and guards at bedside. RECOMMENDATION: Continuation of all wound care orders prescribed by MD, continue with skin/wound plan of care, continue monitoring by wound care while patient is hospitalized. Addendum: 12/01/19 at 1511 by Florinda Trujillo RN Amended: Links added.
--- NOTE | 2019-12-01 12:00 | NUR ---
BEDSIDE Dr. Miller bedside. Updated on patients status, CPAP trials, pushed back surgery.
[2019-12-01] MEDS ORDERED: SODIUM PHOSPHATES 20 MEQ in SODIUM CHL 0.9% 100 ML IV ONE (13:00)
--- NOTE | 2019-12-01 14:00 | NUR ---
BEDSIDE Dr. Ayala bedside.
[2019-12-01] MEDS: NOREPINEPHRINE BITARTRATE 16 MG in SODIUM CHL 0.9% 250 ML IV SCH (14:15)
--- NOTE | 2019-12-01 15:27 | NUR ---
Nutrition Follow-up Wt.: 99.6 kg Pt was awake, receiving artificial ventilation, with guards by bedside when rounded this morning. Currently NPO with TPN support running @61ml/hr providing 1210 kcal, 90 gms protein and 850 NPCs. Pt with inadequate energy intake from PN support aeb 58% to 67% of est caloric needs. Protein intake from PN support is adequate aeb 100% to 125% protein needs. Noted propofol running @16.2 ml/hr providing additional 428 kcals. Noted new PN order for tonight @58ml/hr. Est. energy needs: 5452-1156 kcals (20-23 kcal/kgBW). Est. protein needs: 72-90 gms/day (0.8-1.0 gm/kgBW). Will continue to monitor pertinent labs and reassess nutrient needs prn. Labs 11/30: TP 5.8 L, BUN 26 H, serum glucose 169 H, albumin 1.9 L, Ca 7 L, P 2.3 L Skin: Irwin scale 12, high risk, DTI vs birthmark to posterior medial sacrum per loan supervisor. PES: 1) Altered nutrition related lab values r/t current medical condition aeb hyponatremia, elevated RFTs, hyperglycemia, hypocalcemia, elev Bili, severe hypoalbuminemia Will continue to monitor NPO status, skin status, pertinent labs and weight trend. F/u in 2 to 3 days. Recommendations: 1) Continue to closely monitor pt NPO status. 2) Advance to EN support or Oral diet when appropriate. 3) If albumin continues trending down, consider Prostat 1 pkt BID 4) Continue current plan of care.
[2019-12-01] MEDS: MIDAZOLAM DRIP 50 mg/50mL 50 ML IV SCH (19:11)
--- NOTE | 2019-12-01 19:30 | NUR ---
Opening Shift Note: Patient intubated/sedated. ET size 8.0/24 @ lip. Vent PC rate of 14, pressure 20, FiO2 30%, and PEEP 5. Neuro: able to slightly move all extremities; follows simple commands; spontaneous eye opening; pupils 6 mm/brisk/reactive. NSR 90s-ST 100S; SBP 130s cuff and a-line pressures. Arterial line in left axilla inserted on 11/19/19. Right CT presents with a small leak (MDs aware) with brown output. R nare NGT to LIS: minimal dark green output. Goldstein inserted on 11/18/19: light fartun clear output. Skin: blister TOO on right side; Stage II to sacrum optifoam CDI; right buttock partial thickness skin tear: optifoam. IVs: left wrist 20 g IID inserted on 11/23/19; Right IJ triple lumen inserted on 11/18/19: propofol @ 30, TPN @ 58 ml/hr, Fentanyl @ 150. Will continue to turn/perform oral care Q2H/prn. Will plan on another CPAP trial for AM.
[2019-12-01] MEDS ORDERED: TPN PER PHARMACY IV NR ×9 (20:00)
[2019-12-01] MEDS: FLUCONAZOLE 200MG/100ML 100 ML IV SCH ×2 (22:00→23:00)
[2019-12-02] VITALS (104 sets, daily range): BP systolic 72–191; BP diastolic 47–102
[2019-12-02] MEDS: VASOPRESSIN 50 UNITS in D5W 5% 247.5 ML IV SCH (00:29)
[2019-12-02] MEDS: LINEZOLID 600MG/300ML 300 ML IV SCH ×3 (00:29→23:58)
[2019-12-02] MEDS: PROPOFOL 100 ML IV SCH ×7 (02:00→23:59)
[2019-12-02] MEDS: MEROPENEM 1GM IVPB 100 ML IV SCH ×2 (02:00→10:21)
[2019-12-02 04:00] LABS: Basophils # (auto) 0.2 10 ^3/uL (0-0.2); Eosinophils # (auto) 0.2 10 ^3/uL (0-0.8); Eosinophils % (auto) 1.9 % (0.0-7.0); Hematocrit 28.9 % (41.0-53.0); Hemoglobin 9.4 g/dL (13.5-17.5); Lymphocytes # (auto) 1.2 10 ^3/uL (0.4-5.4); Lymphocytes % (auto) 9.3 % (10.0-50.0); Mean Corpuscular Hemoglobin 28.3 pg (28.0-32.0); Mean Corpuscular Hgb Conc. 32.6 g/dL (32.0-36.0); Monocytes # (auto) 0.7 10 ^3/uL (0-1.3); Monocytes % (auto) 5.4 % (0.0-12.0); Neutrophils % (auto) 81.4 % (37.0-80.0); Platelet Count (auto) 429 10^3/uL (140-450); Red Blood Cells 3.32 10^6/uL (4.5-5.90); Red Cell Distribution Width 15.4 % (11.8-14.3); White Blood Cell 12.3 10^3/uL (4.4-10.8)
[2019-12-02 04:20] LABS: Albumin 1.7 g/dL (3.4-5.0); Potassium 3.9 mmol/L (3.5-5.1)
[2019-12-02 04:22] LABS: BUN/Creatinine Ratio 38.1
[2019-12-02 04:25] LABS: Bilirubin, Total 0.9 mg/dL (0.2-1.0); Total Protein 5.4 g/dL (6.4-8.2)
[2019-12-02 04:26] LABS: Magnesium 1.9 mg/dL (1.6-2.6); Phosphorus 2.8 mg/dL (2.5-4.90)
--- NOTE | 2019-12-02 05:30 | NUR ---
Patient bathe/linen change Patient given complete CHG bath. Skin integrity assessed for any changes. Linens and gown changed. Patient repositioned for comfort.
[2019-12-02] MEDS: InsuLIN REG 1unit/0.01ml Soln (100units/ml) SC SCH ×5 (06:00→23:24)
[2019-12-02] MEDS: METOCLOPRAMIDE HCL 5MG/ml INJ 2ml VIAL IV SCH ×3 (06:00→21:07)
[2019-12-02] MEDS: ACCU-CHEK COMFORT CURVE STRIP VI SCH ×5 (06:00→23:23)
--- NOTE | 2019-12-02 06:00 | NUR ---
Sedation increased: Patient HR in 120s and RR in 30s; only minimal turning performed to place new linens under patient. Propofol increased despite anticipated CPAP trial to control current status.
[2019-12-02] MEDS: fentaNYL Drip 2500mCg/250mlNS 250 ML IV SCH (06:30)
[2019-12-02] MEDS: EPINEPHrine HCL INJECTION 8 MG in D5W 5% 250 ML IV SCH (06:54)
[2019-12-02] MEDS: PHENYLEPHRINE INJ 80 MG in SODIUM CHL 0.9% 250 ML IV SCH (06:54)
--- NOTE | 2019-12-02 08:00 | NUR ---
AM ASSESSMENT COMPLETED PATIENT OPENS EYES SPONTANEOUSLY, ANSWERS SIMPLE QUESTIONS AND FOLLOWING SIMPLE COMMANDS WHILE ON MECHANICAL VENTILATOR AND LIGHTLY SEDATED. PT SLIGHTLY TACKYCARDIC 120'S, FENT GTT INCREASED FOR COMFORT SLIGHT AMOUNT OF FACIAL GRIMACING NOTED. SEE PHYSICAL ASSESSMENT AND FURTHER NOTES.
--- NOTE | 2019-12-02 08:25 | NUR ---
PAGED TO VERIFY PROCEDURE DR. Amparo HUMPHREYS PAGED TO VERIFY CAROLYNN SCHEDULED FOR 12/03 AND IF HE IS OK TO CONTINUE WITH CPAP AT THIS TIME. MSG LEFT WITH JACOB, REJI. AWAITING CALLBACK.
--- NOTE | 2019-12-02 09:30 | NUR ---
ROUNDS DR. MCELROY AT BEDSIDE. AWARE OF CALL OUT TO HUMPHREYS TO VERIFY PROCEDURE BEFORE CPAP TRIAL. AWARE. ALSO AWARE OF CHANGE IN H/H THIS A.M. VERBALIZED UNDERSTANDING. SEE NEW ORDERS.
[2019-12-02] MEDS: ALBUTEROL SULF 2.5 MG/0.5ML(0.5%) NEB SOLN HHN SCH ×4 (10:00→22:13)
[2019-12-02] MEDS: ACETYLCYSTEINE 10 %(100MG/ML) SOL 4ML IN SCH ×4 (10:00→22:14)
[2019-12-02] MEDS: INSULIN LANTUS (GLARGINE) 1 /0.01ml (100units/ml) SC SCH ×2 (10:00→21:07)
--- NOTE | 2019-12-02 10:15 | NUR ---
INCREASED LABORED BREATHING POST MORNING ASSESSMENT PATIENT REMAINS TACKYCARDIC AT 120'S RR NOTED TO INCREASE TO 30'S WITH ACCESSORY MUSCLE USE. PATIENT PLACED BACK INTO SUPINE POSITION. CHEST TUBE TO RIGHT LATERAL CHEST REMAINS DRAINING YELLOW WITH WHITE CHUNKS NOTED. R.T AWARE. CPAP HELD AT THIS TIME. SEE IV SPREADSHEET FOR SEDATION INCREASE DUE TO RESTLESSNESS AND DISCOMFORT.
[2019-12-02] MEDS: PANTOPRAZOLE 40 MG/10 ML VIAL INJ IV SCH (10:19)
[2019-12-02] MEDS: HYDROCORTISONE SOD SUCC 100 MG/2ML INJ VIAL IV SCH (10:19)
--- NOTE | 2019-12-02 10:51 | NUR ---
Cooling Measures applied. Patient currently has temp of 99.5 , cooling measures in place.
--- NOTE | 2019-12-02 11:00 | NUR ---
Sbp greater than 180 at this time. PRN medication held. See further notes/ Interventions being followed
--- NOTE | 2019-12-02 11:13 | NUR ---
MD CALLED BACK DR. Amparo HUMPHREYS UPDATED ON CONCERN RE: CPAP TRIAL BEFORE PROCEDURE. MD AWARE OF PATIENTS CURRENT STATUS CHANGE WITH INTERVENTIONS FOLLOWED. MD AWARE AND STATING HE IS AVAILABLE ANYTIME TODAY IF TEAM IS AVAILABLE AND IF PATIENT STABLE. MD AWARE Jan BRITTON IS PENDING AT THIS TIME.
[2019-12-02] MEDS ORDERED: IPRATROPIUM BROM 0.5 MG/2.5ML INH SOL NEB SCH (11:30)
[2019-12-02] MEDS: MIDAZOLAM DRIP 50 mg/50mL 50 ML IV SCH ×3 (11:44→23:10)
--- NOTE | 2019-12-02 11:44 | NUR ---
MD CALLED BACK MD UPDATED ON CURRENT ABG. MD AWARE OF INCREASE RESP. EFFORT, DESATURATIONS, TACKYCARDIA AND HYPERTENSION. PER MD PATIENT TO BE SEDATED AT RASS -4. R.T AWARE. ABG TO FOLLOW IN 30MIN.
--- NOTE | 2019-12-02 11:51 | NUR ---
CXR STAT ABG. PRIOR CXR IMPROVING. PATIENT DECLINING, SEE VS. REPEAT CXR ORDERED LITTLE TO NO AIR EXCHANGE NOTED TO RIGHT CHEST. R.T AT BEDSIDE. PT REMAINS ON PC FI02 45%.
[2019-12-02] MEDS ORDERED: NOREPINEPHRINE 8 MG/250ML KIT 250 ML IV ONE (11:57)
--- NOTE | 2019-12-02 12:00 | NUR ---
POSITION CHANGE HELD PATIENT TO REMAINS SUPINE. UNSTABLE FOR POSITION CHANGE AT THIS TIME. SEE NOTES.
--- NOTE | 2019-12-02 12:19 | NUR ---
BLOOD BANK COORDINATOR AT BEDSIDE MD AWARE OF PATENTS CONDITION, MD REVIEWED CXR AT BEDSIDE WHILE TECH IN ROOM. SEE MD ORDERS/NOTES.
--- NOTE | 2019-12-02 12:20 | NUR ---
BRONCHOSCOPY SCHEDULED FOR A.M. 1000. PERSONAL FINANCIAL ADVISOR AWARE. 2ND PHYSICIAN TO SIGN FOR PROCEDURE.
--- NOTE | 2019-12-02 12:38 | NUR ---
LEVOPHED GTT STARTED. BP TRENDING 86/45.
--- NOTE | 2019-12-02 14:00 | NUR ---
PATIENT VSS. PT TURNED AND TOLERATED MOVEMENT WELL. WILL CONTINUE TO MONITOR.
[2019-12-02] MEDS: NOREPINEPHRINE BITARTRATE 16 MG in SODIUM CHL 0.9% 250 ML IV SCH (14:15)
[2019-12-02] MEDS: ALBUMIN 25% 100 ML IV SCH (16:58)
[2019-12-02] MEDS: SODIUM CHL 0.9% IV SCH (18:26)
[2019-12-02] MEDS: MEROPENEM IV SCH (18:26)
[2019-12-02] MEDS: IPRATROPIUM BROM 0.5 MG/2.5ML INH SOL NEB SCH ×2 (18:43→22:13)
[2019-12-02] MEDS: NOREPINEPHRINE 8 MG/250ML KIT 250 ML IV SCH (19:00)
--- NOTE | 2019-12-02 19:39 | NUR ---
Levophed changed to single concentrated at this time. Order not showing in e mar and corrected. Noc shift aware.
[2019-12-02] MEDS ORDERED: TPN PER PHARMACY IV NR ×10 (20:00)
[2019-12-02] MEDS: FLUCONAZOLE 200MG/100ML 100 ML IV SCH ×2 (21:06→23:09)
[2019-12-03] VITALS (103 sets, daily range): BP systolic 82–161; BP diastolic 46–96
[2019-12-03] MEDS: VASOPRESSIN 50 UNITS in D5W 5% 247.5 ML IV SCH (01:30)
[2019-12-03] MEDS: SODIUM CHL 0.9% IV SCH ×3 (02:00→17:03)
[2019-12-03] MEDS: MEROPENEM IV SCH ×3 (02:00→17:03)
[2019-12-03] MEDS: ALBUTEROL SULF 2.5 MG/0.5ML(0.5%) NEB SOLN HHN SCH ×5 (02:50→21:40)
[2019-12-03] MEDS: ACETYLCYSTEINE 10 %(100MG/ML) SOL 4ML IN SCH ×5 (02:51→21:40)
[2019-12-03] MEDS: IPRATROPIUM BROM 0.5 MG/2.5ML INH SOL NEB SCH ×6 (02:51→21:40)
[2019-12-03] MEDS: MIDAZOLAM DRIP 50 mg/50mL 50 ML IV SCH ×4 (03:08→11:45)
[2019-12-03] MEDS: PROPOFOL 100 ML IV SCH ×5 (03:56→21:00)
[2019-12-03 04:25] LABS: Basophils # (auto) 0.1 10 ^3/uL (0-0.2); Basophils % (auto) 0.6 % (0.0-2.0); Eosinophils # (auto) 0.2 10 ^3/uL (0-0.8); Eosinophils % (auto) 1.8 % (0.0-7.0); Hematocrit 26.7 % (41.0-53.0); Hemoglobin 8.7 g/dL (13.5-17.5); Lymphocytes # (auto) 1.1 10 ^3/uL (0.4-5.4); Lymphocytes % (auto) 8.2 % (10.0-50.0); Mean Corpuscular Hemoglobin 28.9 pg (28.0-32.0); Mean Corpuscular Hgb Conc. 32.8 g/dL (32.0-36.0); Monocytes # (auto) 0.6 10 ^3/uL (0-1.3); Monocytes % (auto) 4.8 % (0.0-12.0); Neutrophils % (auto) 84.6 % (37.0-80.0); Platelet Count (auto) 443 10^3/uL (140-450); Red Blood Cells 3.03 10^6/uL (4.5-5.90); Red Cell Distribution Width 15.6 % (11.8-14.3)
[2019-12-03 04:40] LABS: Albumin 1.8 g/dL (3.4-5.0); Calcium 7.5 mg/dL (8.5-10.1); Magnesium 2.5 mg/dL (1.6-2.6); Potassium 4.4 mmol/L (3.5-5.1)
[2019-12-03 04:44] LABS: BUN/Creatinine Ratio 27.8; Bilirubin, Total 0.7 mg/dL (0.2-1.0); Phosphorus 3.8 mg/dL (2.5-4.90); Total Protein 5.4 g/dL (6.4-8.2)
[2019-12-03] MEDS: METOCLOPRAMIDE HCL 5MG/ml INJ 2ml VIAL IV SCH ×3 (06:00→21:47)
[2019-12-03] MEDS: ACCU-CHEK COMFORT CURVE STRIP VI SCH ×3 (06:00→17:03)
[2019-12-03] MEDS: InsuLIN REG 1unit/0.01ml Soln (100units/ml) SC SCH ×3 (06:53→18:00)
[2019-12-03] MEDS: PHENYLEPHRINE INJ 80 MG in SODIUM CHL 0.9% 250 ML IV SCH (07:15)
[2019-12-03] MEDS: NOREPINEPHRINE 8 MG/250ML KIT 250 ML IV SCH (07:16)
[2019-12-03] MEDS: fentaNYL Drip 2500mCg/250mlNS 250 ML IV SCH ×2 (07:16→20:00)
[2019-12-03] MEDS: EPINEPHrine HCL INJECTION 8 MG in D5W 5% 250 ML IV SCH (07:45)
--- NOTE | 2019-12-03 08:54 | NUR ---
PAGED. BRONCHOSCOPY PENDING FOR 1000 TODAY. SECOND PHYSICIAN TO SIGN. MSG LEFT FOR CALLBACK.
[2019-12-03] MEDS: PANTOPRAZOLE 40 MG/10 ML VIAL INJ IV SCH (08:59)
[2019-12-03] MEDS: ALBUMIN 25% 100 ML IV SCH (09:00)
[2019-12-03] MEDS: HYDROCORTISONE SOD SUCC 100 MG/2ML INJ VIAL IV SCH (09:00)
[2019-12-03] MEDS: INSULIN LANTUS (GLARGINE) 1 /0.01ml (100units/ml) SC SCH ×2 (10:00→21:49)
[2019-12-03 10:08] LABS: INR 1.13 (0.9-1.15); Partial Thromboplastin Time 36.5 sec (23.64-32.05)
[2019-12-03] MEDS ORDERED: ACETYLCYSTEINE 10 %(100MG/ML) SOL 4ML NEB ONE (10:15)
--- NOTE | 2019-12-03 11:00 | NUR ---
AT BEDSIDE DR. CASTELLON AT BEDSIDE. MD UPDATED ON PATIENTS STATUS. MD AWARE OF LAST BM, ABD REMAINS SOFT, NON DISTENDED, ALONG WITH OUTPUT FROM NG. MD AWARE OF CURRENT HGB. SEE MD ORDERS/NOTES.
[2019-12-03] MEDS ORDERED: LIDOCAINE 2%HCL (LOCAL ANESTH.) INJ 20ML MDV ONE (11:05)
[2019-12-03] MEDS ORDERED: NALOXONE HCL 0.4 MG/ML VIAL ONE (11:05)
[2019-12-03] MEDS ORDERED: FLUMAZENIL 0.1 MG/ML INJ 10ML MDV IV ONE (11:05)
[2019-12-03] MEDS ORDERED: EPINEPHrine HCL 1 MG/1 ML AMP ONE (11:06)
[2019-12-03] MEDS ORDERED: SODIUM CHLORIDE LOCK 10 ML ONE (11:06)
[2019-12-03] MEDS ORDERED: LIDOCAINE HCL 2% TOP JELLY 5ML TOP ONE (11:06)
[2019-12-03] MEDS ORDERED: ACETYLCYSTEINE 10 %(100MG/ML) SOL 10ML ONE (11:24)
[2019-12-03] MEDS: LINEZOLID 600MG/300ML 300 ML IV SCH ×2 (11:29→23:14)
--- NOTE | 2019-12-03 12:20 | NUR ---
CHEST TUBE DRESSING CHANGE TO RIGHT LATERAL CHEST SITE NOTED TO BE SLIGHTLY PINK 2-3 O CLOCK. SITE CLEANSED WITH CHLORAPREP SWAB, SUTURE REMAINS IN PLACE. SITE WAS BEING CLEANED CONTINUOUS BUBBLING NOTED. ALL TUBING SECURED AND REINFORCED.PETROLEUM GAUZE OVER SITE, 4X4 GAUZE AND SECURED WITH FOAM TAPE. ONCE TAPE SECURED TO CHEST NO FURTHER BUBBLING NOTED. PLANT CONTROLS SPECIALIST AWARE. RIGHT LATERAL CHEST/ LATERAL ABD NOTED TO HAVE A DRY SCABBED SKIN TEAR AND CLOSED BLISTER. AREA CLEANSED WITH NS AND PADDED DRY, OPTIFOAM PLACED OVER SITE.
--- NOTE | 2019-12-03 12:43 | NUR ---
BRONCHOSCOPY Nevaeh LESTER AND OR CREW AT BEDSIDE. SEE O.R. NOTES.
--- NOTE | 2019-12-03 12:45 | NUR ---
SURGEON PAGED DR. AGUAYO PAGED TO FOLLOW UP ON THORACOTOMY FOLLOWUP. AWAITING CALLBACK.
--- NOTE | 2019-12-03 12:58 | NUR ---
SKIN SITE DISTAL TO CHEST TUBE NOTED TO HAVE SKIN TEARS AND CLOSED BLISTER. CLEANSED DESCRIBED PREVIOUSLY AND DRESSED WITH OPTIFOAM. LEFT UPPER LIP NOTED TO HAVE A SMALL SCAB. PICTURE TAKEN, NO TUBINGS ON SITE AT THIS TIME. Addendum: 12/03/19 at 1758 by Vibha Fuller RN RIGHT WRIST NOTED TO HAVE HAND CUFFS, CUFFS SURROUNDED WITH CLOTH AND ABD PAD SURROUNDING METAL TO PROTECT SKIN, NO SKIN ISSUES NOTED, PULSES PRESENT. BILATERAL ANKLES HAVE FLEXI-CUFFS CONNECTED WITH CHAINS. ANKLES PROTECTED WITH OPTIFOAM AND CUFFS ARE LAYING OVER SCDS COVER. BILATERAL ANKLES IN PLACE.
--- NOTE | 2019-12-03 13:00 | NUR ---
PROCEDURE COMPLETED. NO SIGNIFICANT OCCURRENCE. PT TOLERATED WELL. SEE OR NOTES. SEE MD NOTES.
--- NOTE | 2019-12-03 13:20 | NUR ---
HYPOTENSION ATTEMPTED TO TITRATE LEVOPHED DOWN PER PROTOCOL. BP 110/ 60 DECREASED 84/47. LEVOPHED TO REMAIN AT 6MCG AT THIS TIME.
--- NOTE | 2019-12-03 13:20 | NUR ---
SEDATION TITRATION SHIFT LAB TECHNICIAN RECOMMENDING FOR PATIENT TO REMAIN MODERATELY SEDATED. SEDATION TO BE TITRATED DOWN TOLERATED. SEE IV SPREADSHEET.
--- NOTE | 2019-12-03 13:27 | NUR ---
SURGEON DR. AGUAYO CALLED BACK RE: FOLLOW UP ON THORACOTOMY. STATING HE DOES NOT PERFORM THORACOTOMIES. PER MD HEAD HOSPITALIST TO BE REACHED IN A.M. TO DETERMINE WHEN SURGEON WILL RETURN TO PERFORM PROCEDURE.
--- NOTE | 2019-12-03 15:24 | NUR ---
CHEST TUBE PATIENT TURNED TO LEFT SIDE, CHEST TUBE NOTED TO HAVE BUBBLING TO WATER CHAMBER. 1 PILLOW REMOVED AND PRESSURE APPLIED TO SITE AND BUBBLING REMAINS INTERMITTENT. POX REMAINED AT 97%. WILL CONTINUE TO MONITOR.
--- NOTE | 2019-12-03 17:59 | NUR ---
CHEST TUBE OUTPUT PATIENT HAD 50CC OF YELLOW OUTPUT WITH CLOUDY CLOTS NOTED. CHEST TUBE CONTINUES TO HAVE SMALL AMOUNT OF BUBBLING. NO SQ EMPHYSEMA. POX 98%. DRESSING REMAINS IN PLACE AND SECURE.
--- NOTE | 2019-12-03 18:23 | NUR ---
CAROLYNN HELD. DR. HUMPHREYS CALLED TO VERIFY IF HE WOULD LIKE TO CONTINUE WITH CAROLYNN IN A.M. LISTED. PER MD, " IT IS NOT CRITICAL, IT IS OK TO EXTUBATE PATIENT". INFORMED MD EXTUBATION AT THIS TIME WILL BE PENDING POSSIBLE SURGERY WILL BE FOLLOWED UP IN A.M. MD VERBALIZED UNDERSTANDING.
--- NOTE | 2019-12-03 18:50 | NUR ---
DR. HUMPHREYS AT BEDSIDE MD UPDATED ON PATIENTS STATUS. SEE MD NOTES/ORDERS.
--- NOTE | 2019-12-03 19:36 | NUR ---
MED REC FAXED REQUESTED TO [facility]. Addendum: 12/03/19 at 1936 by Vibha Fuller RN WRONG PATIENT
[2019-12-03] MEDS ORDERED: TPN PER PHARMACY IV NR ×7 (20:00)
[2019-12-03] MEDS: FLUCONAZOLE 200MG/100ML 100 ML IV SCH ×2 (21:47→23:15)
[2019-12-04] VITALS (88 sets, daily range): BP systolic 83–139; BP diastolic 57–78
[2019-12-04] MEDS: VASOPRESSIN 50 UNITS in D5W 5% 247.5 ML IV SCH (01:30)
[2019-12-04] MEDS: MEROPENEM IV SCH ×3 (02:00→19:51)
[2019-12-04] MEDS: SODIUM CHL 0.9% IV SCH ×3 (02:00→19:51)
[2019-12-04] MEDS: ACETYLCYSTEINE 10 %(100MG/ML) SOL 4ML IN SCH ×6 (02:36→22:44)
[2019-12-04] MEDS: ALBUTEROL SULF 2.5 MG/0.5ML(0.5%) NEB SOLN HHN SCH ×6 (02:36→22:44)
[2019-12-04] MEDS: IPRATROPIUM BROM 0.5 MG/2.5ML INH SOL NEB SCH ×6 (02:36→22:44)
[2019-12-04 03:38] LABS: Basophils # (auto) 0.1 10 ^3/uL (0-0.2); Basophils % (auto) 0.7 % (0.0-2.0); Eosinophils # (auto) 0.3 10 ^3/uL (0-0.8); Eosinophils % (auto) 2.1 % (0.0-7.0); Hematocrit 26.5 % (41.0-53.0); Hemoglobin 8.7 g/dL (13.5-17.5); Lymphocytes # (auto) 1.2 10 ^3/uL (0.4-5.4); Lymphocytes % (auto) 9.2 % (10.0-50.0); Mean Corpuscular Hemoglobin 28.5 pg (28.0-32.0); Mean Corpuscular Hgb Conc. 32.7 g/dL (32.0-36.0); Mean Corpuscular Volume 87.3 fL (80.0-100.0); Monocytes # (auto) 0.6 10 ^3/uL (0-1.3); Monocytes % (auto) 4.5 % (0.0-12.0); Neutrophils # (auto) 11.2 10 ^3/uL (1.6-8.6); Neutrophils % (auto) 83.5 % (37.0-80.0); Platelet Count (auto) 425 10^3/uL (140-450); Red Blood Cells 3.04 10^6/uL (4.5-5.90); White Blood Cell 13.5 10^3/uL (4.4-10.8)
[2019-12-04 03:54] LABS: Albumin 1.8 g/dL (3.4-5.0); Calcium 7.4 mg/dL (8.5-10.1); Magnesium 2.2 mg/dL (1.6-2.6); Potassium 4.3 mmol/L (3.5-5.1)
[2019-12-04 03:58] LABS: BUN/Creatinine Ratio 26.3; Bilirubin, Total 0.9 mg/dL (0.2-1.0); Phosphorus 2.8 mg/dL (2.5-4.90); Total Protein 5.8 g/dL (6.4-8.2)
[2019-12-04] MEDS ORDERED: MIDAZOLAM DRIP 50 mg/50mL 50 ML IV ONE ×2 (05:53→15:45)
[2019-12-04] MEDS: InsuLIN REG 1unit/0.01ml Soln (100units/ml) SC SCH ×4 (06:00→18:48)
[2019-12-04] MEDS: METOCLOPRAMIDE HCL 5MG/ml INJ 2ml VIAL IV SCH ×3 (06:05→22:00)
[2019-12-04] MEDS: NOREPINEPHRINE 8 MG/250ML KIT 250 ML IV SCH (06:06)
[2019-12-04] MEDS: ACCU-CHEK COMFORT CURVE STRIP VI SCH ×4 (06:06→18:15)
[2019-12-04] MEDS: fentaNYL Drip 2500mCg/250mlNS 250 ML IV SCH ×2 (07:16→20:32)
[2019-12-04] MEDS: PHENYLEPHRINE INJ 80 MG in SODIUM CHL 0.9% 250 ML IV SCH (07:27)
--- NOTE | 2019-12-04 07:30 | NUR ---
REPORT REPORT RECEIVED FROM IAM RNPAM. BEDSIDE CHECK DONE.
[2019-12-04] MEDS: PROPOFOL 100 ML IV SCH ×3 (07:44→20:00)
[2019-12-04] MEDS: EPINEPHrine HCL INJECTION 8 MG in D5W 5% 250 ML IV SCH (07:45)
--- NOTE | 2019-12-04 07:50 | NUR ---
ASSESSMENT PT SEDATED AND INTUBATED. PT DEEPLY SEDATED PER DR JUAN. PER REPORT. NO SPONTANEOUS MOVEMENT NOTED. MITTENS TO BITH HANDS TO PREVENT REMOVAL OF ANY TUBES. VENT SETTINGS: 8 FR ETT/ 23 AT THE LIP, PRESSURE CONTROL WITH PRESSURE 20, RATE OF 20, 40%FIO2 AND PEEP OF 5. LUNGS CLEAR THROUGHOUT. CHEST TUBE TO RIGHT CHEST WITH VERY FEW DROPS OF STRAW COLORED FLUID IN TUBING. TELE ST 101. PALPABLE PULSES TO ALL EXTREMITIES. PITTING JEEVAN ANOTED TO BOTH HANDS AND ANKLES. SCDS TO BLE. ABD SOFT WITH BOWEL SOUNDS PRESENT. RIGHT NARES NGT DRAINING CLEAR BROWN GREEN FLUID. LAST BM PER REPORT WAS 11/13. MAY CATHETER DRAINING CLEAR YELLOW URINE. TURNED FOR COMFORT. SEE SKIN ASSESSMENT. CONTINUE TO MONITOR.
[2019-12-04] MEDS: PANTOPRAZOLE 40 MG/10 ML VIAL INJ IV SCH (10:17)
[2019-12-04] MEDS: ALBUMIN 25% 100 ML IV SCH (10:17)
[2019-12-04] MEDS: INSULIN LANTUS (GLARGINE) 1 /0.01ml (100units/ml) SC SCH ×2 (10:30→22:00)
--- NOTE | 2019-12-04 10:50 | NUR ---
Respiratory note: ETT ADVANCED [address] JUAN. ETT NOW SECURED AT 26 CM. RN WILL BE MADE AWARE.
--- NOTE | 2019-12-04 11:30 | NUR ---
PT SEEN AND EXAMINED BY DR CABRALES HE IS SCHEDULING THE PT FOR SURGERY TOMORROW.
[2019-12-04 13:15] LABS: INR 1.14 (0.9-1.15); Partial Thromboplastin Time 38.1 sec (23.64-32.05)
[2019-12-04] MEDS: LINEZOLID 600MG/300ML 300 ML IV SCH (13:22)
--- NOTE | 2019-12-04 14:30 | NUR ---
PT TURNED FOR COMFORT. CONTINUE TO MONITOR.
--- NOTE | 2019-12-04 19:00 | NUR ---
RECEIVED A PHONE CALL FROM THE MD FROM THE [facility]. AFTER VERIFYING WHAT HE KNEW ABOUT THE PT, I UPDATED HIM ON THE PT'S CURRENT CONDITION AND SCHEDULED SURGERY FOR TOMORROW.
[2019-12-04] MEDS: TPN PER PHARMACY IV NR ×8 (19:50)
--- NOTE | 2019-12-04 19:56 | NUR ---
REPORT REPORT GIVEN TO IAM RNPAM, BEDSIDE CHECK DONE.
[2019-12-04] MEDS: MIDAZOLAM DRIP 50 mg/50mL 50 ML IV SCH (20:00)
[2019-12-04] MEDS: FLUCONAZOLE 200MG/100ML 100 ML IV SCH ×2 (22:00→22:49)
[2019-12-04] MEDS: ACETAMINOPHEN 325 MG TAB PO PRN (23:21)
[2019-12-05] VITALS (94 sets, daily range): BP systolic 89–195; BP diastolic 16–104
[2019-12-05] MEDS: LINEZOLID 600MG/300ML 300 ML IV SCH ×2 (00:30→12:38)
[2019-12-05] MEDS: VASOPRESSIN 50 UNITS in D5W 5% 247.5 ML IV SCH (01:30)
[2019-12-05] MEDS: MEROPENEM IV SCH ×3 (02:00→17:29)
[2019-12-05] MEDS: SODIUM CHL 0.9% IV SCH ×3 (02:00→17:29)
[2019-12-05] MEDS: ALBUTEROL SULF 2.5 MG/0.5ML(0.5%) NEB SOLN HHN SCH ×6 (02:12→22:15)
[2019-12-05] MEDS: ACETYLCYSTEINE 10 %(100MG/ML) SOL 4ML IN SCH ×6 (02:13→22:15)
[2019-12-05] MEDS: IPRATROPIUM BROM 0.5 MG/2.5ML INH SOL NEB SCH ×6 (02:13→22:15)
[2019-12-05 03:43] LABS: Basophils # (auto) 0.1 10 ^3/uL (0-0.2); Basophils % (auto) 0.7 % (0.0-2.0); Eosinophils # (auto) 0.3 10 ^3/uL (0-0.8); Eosinophils % (auto) 2.7 % (0.0-7.0); Hematocrit 25.9 % (41.0-53.0); Hemoglobin 8.6 g/dL (13.5-17.5); Lymphocytes # (auto) 1.1 10 ^3/uL (0.4-5.4); Lymphocytes % (auto) 9.1 % (10.0-50.0); Mean Corpuscular Hemoglobin 28.6 pg (28.0-32.0); Mean Corpuscular Volume 86.6 fL (80.0-100.0); Monocytes # (auto) 0.5 10 ^3/uL (0-1.3); Neutrophils # (auto) 10.3 10 ^3/uL (1.6-8.6); Neutrophils % (auto) 83.5 % (37.0-80.0); Platelet Count (auto) 388 10^3/uL (140-450); Red Blood Cells 2.99 10^6/uL (4.5-5.90); Red Cell Distribution Width 16.2 % (11.8-14.3); White Blood Cell 12.4 10^3/uL (4.4-10.8)
[2019-12-05 04:10] LABS: Potassium 4.5 mmol/L (3.5-5.1)
[2019-12-05 04:18] LABS: Albumin 1.9 g/dL (3.4-5.0); BUN/Creatinine Ratio 29.5; Bilirubin, Total 2.2 mg/dL (0.2-1.0); Calcium 7.6 mg/dL (8.5-10.1); Phosphorus 3.2 mg/dL (2.5-4.90); Total Protein 5.8 g/dL (6.4-8.2)
[2019-12-05] MEDS: ACETAMINOPHEN 325 MG TAB PO PRN ×3 (04:58→23:09)
[2019-12-05] MEDS: METOCLOPRAMIDE HCL 5MG/ml INJ 2ml VIAL IV SCH ×3 (04:59→22:45)
[2019-12-05] MEDS: MIDAZOLAM DRIP 50 mg/50mL 50 ML IV SCH ×2 (05:00→12:39)
[2019-12-05] MEDS: InsuLIN REG 1unit/0.01ml Soln (100units/ml) SC SCH ×4 (06:00→17:34)
[2019-12-05] MEDS: ACCU-CHEK COMFORT CURVE STRIP VI SCH ×4 (06:00→17:35)
[2019-12-05] MEDS: PHENYLEPHRINE INJ 80 MG in SODIUM CHL 0.9% 250 ML IV SCH (07:27)
--- NOTE | 2019-12-05 07:30 | NUR ---
AM ASSESSMENT COMPLETED. GTT'S VERIFIED. PT IS GOING TO SURGERY THIS AM. I CALLED OR TO VERIFY IF SURGEON & ANESTHESIOLOGIST CAN BOTH SIGN PT'S CONSENT SINCE PT IS AN INMATE AND HE IS INTUBATED & SEDATED AND NOT ABLE TO SIGN HIS OWN CONSENT. OR STAFF SAY THEY'LL CALL ME BACK WITH AN ANSWER PT IS SCHEDULED FOR 0900.
[2019-12-05] MEDS: EPINEPHrine HCL INJECTION 8 MG in D5W 5% 250 ML IV SCH (07:45)
[2019-12-05] MEDS: PROPOFOL 100 ML IV SCH ×2 (08:01→15:56)
[2019-12-05] MEDS: fentaNYL Drip 2500mCg/250mlNS 250 ML IV SCH (08:27)
[2019-12-05] MEDS ORDERED: fentaNYL CITRATE 100 MCG/2 ML VL ONE (09:05)
[2019-12-05] MEDS ORDERED: MIDAZOLAM HCL 1MG/1ML-2 ML VIAL ONE ×3 (09:05→11:07)
[2019-12-05] MEDS ORDERED: ROCURONIUM 10MG/ML 10ML VIAL IV ONE (09:05)
[2019-12-05] MEDS ORDERED: fentaNYL CITRATE 5 ML ONE (09:05)
--- NOTE | 2019-12-05 09:30 | NUR ---
RT NOTE: PT TRANSPORTED TO OR ON 15L VIA AMBU BAG. RN AND OR TEAM BEDSIDE. ONCE IN OR, CARE GIVEN TO OR TEAM. WILL AWAIT PTS RETURN TO ICU.
--- NOTE | 2019-12-05 09:35 | NUR ---
TOOK PT TO OR ASSISTED BY RT & OR CREW. PT'S TPN STOPPED WHILE TAKEN TO OR. PROPOFOL ALSO STOPPED AT THIS TIME PER ANESTHESIOLOGIST ORDERS.
[2019-12-05] MEDS ORDERED: HYDROmorphone HCL 2 MG/ML VL ONE ×2 (09:39→11:37)
[2019-12-05] MEDS: INSULIN LANTUS (GLARGINE) 1 /0.01ml (100units/ml) SC SCH (10:00)
[2019-12-05] MEDS ORDERED: NEOMYCIN-BACITRACIN-POLYM 15GM TOP OINT TOP ONE (11:30)
--- NOTE | 2019-12-05 12:35 | NUR ---
PT BROUGHT BACK FROM OR BY ANESTHESIOLOGIST & OR CREW. VSS. RTE-STARTED ON PROPOFOL. PT WAS PARALYZED IN OR AND GIVEN ADDITIONAL VERSED THAN GGT THAT WAS HANGING. ACCU CHECK DONE. PT DID NOT REQUIRE INSULIN. LONG ACTING INSULIN HELD. BG = 91. I RE-STARTED TPN. AT THIS TIME. PT NOW HAS 2 CT ON RT LUNG WHERE HE HAS RT THORACOTOMY WITH DECORTICATION. CT DRAINING SEROSANGUINEOUS DRAINAGE FROM THE 2 CT WHICH ARE NOW TO 20 CM OF - H2O SUCTION. STARTED ATB' S THAT WERE DUE WHILE PT WAS IN OR.
[2019-12-05] MEDS: PANTOPRAZOLE 40 MG/10 ML VIAL INJ IV SCH (12:39)
[2019-12-05 12:42] LABS: Basophils # (auto) 0.1 10 ^3/uL (0-0.2); Basophils % (auto) 0.7 % (0.0-2.0); Eosinophils # (auto) 0.2 10 ^3/uL (0-0.8); Eosinophils % (auto) 1.6 % (0.0-7.0); Hematocrit 27.7 % (41.0-53.0); Hemoglobin 9.2 g/dL (13.5-17.5); Lymphocytes # (auto) 0.6 10 ^3/uL (0.4-5.4); Lymphocytes % (auto) 3.7 % (10.0-50.0); Mean Corpuscular Hemoglobin 28.9 pg (28.0-32.0); Mean Corpuscular Hgb Conc. 33.2 g/dL (32.0-36.0); Mean Corpuscular Volume 86.9 fL (80.0-100.0); Monocytes # (auto) 0.5 10 ^3/uL (0-1.3); Monocytes % (auto) 3.1 % (0.0-12.0); Neutrophils # (auto) 13.6 10 ^3/uL (1.6-8.6); Neutrophils % (auto) 90.9 % (37.0-80.0); Platelet Count (auto) 382 10^3/uL (140-450); Red Blood Cells 3.19 10^6/uL (4.5-5.90); Red Cell Distribution Width 16.4 % (11.8-14.3)
[2019-12-05 12:59] LABS: BUN/Creatinine Ratio 34.3; Calcium 7.4 mg/dL (8.5-10.1); Potassium 4.5 mmol/L (3.5-5.1)
[2019-12-05] MEDS: ALBUMIN 25% 100 ML IV SCH (14:44)
--- NOTE | 2019-12-05 16:00 | NUR ---
THERMOREGULATION TEMP 99.9 RECTALLY APPLIED ICE TO BOTH ARM PITS AND BEHIND PT'S NECK. REPOSITION PT FOR COMFORT.
--- NOTE | 2019-12-05 16:48 | NUR ---
DR. JUAN ROUNDING ON PT. HE REVIEW PT'S ABG S/P RT THORACOTOMY & DECORTICATION, ORDERED A FOLLOW UP ABG. RT ESDRAS COLLECTING ABG AT THIS TIME.
--- NOTE | 2019-12-05 16:58 | NUR ---
ABG RESULTS MORE WNL, REVIEWED BY DR. JUAN AND RT. FIO2 DECREASED TO 40%. PH & CO2 NOW NORMAL. PT LESS ACIDOTIC. PO2 MORE WNL.
[2019-12-05] MEDS: NOREPINEPHRINE 8 MG/250ML KIT 250 ML IV SCH (19:00)
[2019-12-05] MEDS: TPN PER PHARMACY IV NR ×8 (19:50)
[2019-12-05] MEDS ORDERED: TPN PER PHARMACY IV NR ×9 (20:00)
--- NOTE | 2019-12-05 22:00 | NUR ---
RT NOTE: RT @ BEDSIDE FOR ACCIDENTAL EXTUBATION. MICHAEL ROLLINS @ BEDSIDE. PT MANUALLY VENTILATED WITH AMBUBAG AND MASK WITH 100% FIO2. PT REINTUBATED WITH 8.0 ETT BY DIANA VALENTINE AFTER 1 ATTEMPT @2201, RESECURED @ 25 @ THE LIP. NO ORAL BREAKDOWN NOTED. PT PLACED BACK ON VENTILATOR AND PREVIOUS ORDERED SETTINGS. STAT CXR ORDERED. PT SXN FOR MOD, THIN, CREAM RETURN.BNO SOB OR DISTRESS NOTED @ THIS TIME. WILL CONT TO MONITOR PT @ THIS TIME. Addendum: 12/05/19 at 2243 by Addis Oconnor, RT MED NEB TX HELD DUE TO INCREASED HR. MICHAEL ROLLINS AWARE. WILL CONT WITH NEXT SCHEDULED TX.
[2019-12-05] MEDS ORDERED: SUCCINYLCHOLINE CHLORIDE 20 MG/ML 10ML VIAL IV ONE (22:01)
[2019-12-05] MEDS: FLUCONAZOLE 200MG/100ML 100 ML IV SCH ×2 (22:45→23:00)
[2019-12-06] VITALS (102 sets, daily range): BP systolic 81–158; BP diastolic 48–84
[2019-12-06] MEDS ORDERED: IBUPROFEN 100MG/5ML ORAL SUSP 100 MG/5 ML UD GT ONE
[2019-12-06] MEDS ORDERED: IBUPROFEN 100MG/5ML ORAL SUSP 100 MG/5 ML UD ONE (00:12)
[2019-12-06] MEDS: INSULIN LANTUS (GLARGINE) 1 /0.01ml (100units/ml) SC SCH ×3 (00:43→23:08)
[2019-12-06] MEDS: ACCU-CHEK COMFORT CURVE STRIP VI SCH ×5 (00:44→23:46)
[2019-12-06] MEDS: InsuLIN REG 1unit/0.01ml Soln (100units/ml) SC SCH ×5 (00:44→23:47)
[2019-12-06] MEDS: LINEZOLID 600MG/300ML 300 ML IV SCH ×2 (01:05→11:56)
[2019-12-06] MEDS: VASOPRESSIN 50 UNITS in D5W 5% 247.5 ML IV SCH (01:30)
[2019-12-06] MEDS: SODIUM CHL 0.9% IV SCH ×3 (02:00→17:37)
[2019-12-06] MEDS: MEROPENEM IV SCH ×3 (02:00→17:37)
[2019-12-06] MEDS: IPRATROPIUM BROM 0.5 MG/2.5ML INH SOL NEB SCH ×6 (02:16→22:30)
[2019-12-06] MEDS: ALBUTEROL SULF 2.5 MG/0.5ML(0.5%) NEB SOLN HHN SCH ×6 (02:16→22:30)
[2019-12-06] MEDS: ACETYLCYSTEINE 10 %(100MG/ML) SOL 4ML IN SCH ×6 (02:16→22:31)
[2019-12-06 04:39] LABS: Calcium 7.3 mg/dL (8.5-10.1); Potassium 4.3 mmol/L (3.5-5.1)
[2019-12-06 04:45] LABS: Albumin 1.7 g/dL (3.4-5.0); BUN/Creatinine Ratio 30.4; Bilirubin, Total 3.4 mg/dL (0.2-1.0); Magnesium 1.9 mg/dL (1.6-2.6); Phosphorus 3.3 mg/dL (2.5-4.90); Total Protein 5.4 g/dL (6.4-8.2)
[2019-12-06] MEDS: METOCLOPRAMIDE HCL 5MG/ml INJ 2ml VIAL IV SCH ×3 (06:23→22:10)
--- NOTE | 2019-12-06 07:15 | NUR ---
Opening note Assumed care of patient at this time. Report received from manufacturing supervisor 2nd shift RN. POC reviewed. Received pt intubated on P/C 20, Rate 14, FIO2 50, PEEP 5 size 8 tube placement 26 @lip. Sedated with Versed @5, Propofol @25, Fentanyl @200 and pressor of Levophed @12. Received pt with right chest tube to 20 cm of suction, sanguinous fluid draining. OGT to LIS. Goldstein catheter draining to gravity dark fartun urine. Right Intrajugular Central line and a Left axillary a-line both benign and patent. PT has shackles on both ankles and right wrist with barriers. Skin intact under shackles. Guards at bedside. VSS. Bed locked and in lowest position, safety precautions in place. Will continue to monitor pt carefully.
[2019-12-06] MEDS: PHENYLEPHRINE INJ 80 MG in SODIUM CHL 0.9% 250 ML IV SCH (07:27)
[2019-12-06] MEDS: fentaNYL Drip 2500mCg/250mlNS 250 ML IV SCH ×2 (07:43→20:04)
[2019-12-06] MEDS: EPINEPHrine HCL INJECTION 8 MG in D5W 5% 250 ML IV SCH (07:45)
[2019-12-06 08:03] LABS: Basophils # (auto) 0.1 10 ^3/uL (0-0.2); Basophils % (auto) 0.4 % (0.0-2.0); Eosinophils # (auto) 0.2 10 ^3/uL (0-0.8); Eosinophils % (auto) 1.5 % (0.0-7.0); Hematocrit 26.3 % (41.0-53.0); Hemoglobin 8.5 g/dL (13.5-17.5); Lymphocytes % (auto) 7.8 % (10.0-50.0); Mean Corpuscular Hemoglobin 28.2 pg (28.0-32.0); Mean Corpuscular Hgb Conc. 32.4 g/dL (32.0-36.0); Mean Corpuscular Volume 87.1 fL (80.0-100.0); Monocytes # (auto) 0.5 10 ^3/uL (0-1.3); Monocytes % (auto) 3.6 % (0.0-12.0); Neutrophils # (auto) 11.6 10 ^3/uL (1.6-8.6); Neutrophils % (auto) 86.7 % (37.0-80.0); Nucleated Red Blood Cells % 0.1 %; Platelet Count (auto) 396 10^3/uL (140-450); Red Blood Cells 3.02 10^6/uL (4.5-5.90); Red Cell Distribution Width 16.2 % (11.8-14.3); White Blood Cell 13.4 10^3/uL (4.4-10.8)
--- NOTE | 2019-12-06 08:16 | NUR ---
HYPOTENSION LEVOPHED GTT TITRATED UP TO 14MCG/MIN AND PROPOFOL DECREASED TO 20MCG/KG/MIN D/T HYPOTENSION. A LINE READING 86/50.
[2019-12-06] MEDS: MIDAZOLAM DRIP 50 mg/50mL 50 ML IV SCH ×3 (09:44→22:11)
[2019-12-06] MEDS: ALBUMIN 25% 100 ML IV SCH (09:47)
[2019-12-06] MEDS: PANTOPRAZOLE 40 MG/10 ML VIAL INJ IV SCH (09:48)
--- NOTE | 2019-12-06 10:00 | NUR ---
HYPOTENSION LEVOPHED GTT INCREASED TO 16MCG/MIN AND VERSED DECREASED TO 8ML/HR D/T HYPOTENSION. A-LINE READING 86/52.
[2019-12-06] MEDS: NOREPINEPHRINE 8 MG/250ML KIT 250 ML IV SCH ×2 (11:03→18:36)
[2019-12-06] MEDS: PROPOFOL 100 ML IV SCH ×2 (11:37→18:37)
--- NOTE | 2019-12-06 12:52 | NUR ---
DR. JUAN ROUNDING DR. JUAN ROUNDING ON PATIENT. DR. MARQUES TO CHANGE VENT SETTINGS, RT NATHALY NOTIFIED OF VENT SETTINGS CHANGE. UPDATED DR. JUAN OF PATIENTS RE-INTUBATION LAST NIGHT BY DIANA VALENTINE. UPDATED ON POC WILL CONTINUE TO MONITOR.
--- NOTE | 2019-12-06 13:15 | NUR ---
RT RT NATHALY AT BEDSIDE CHANGING VENT SETTINGS PER DR. JUAN ORDERS.
--- NOTE | 2019-12-06 13:45 | NUR ---
DR. CASTELLON ROUNDING. DR. CASTELLON AT BEDSIDE. INFORMED HIM OF RE-INTUBATION LAST NIGHT. UPDATED ON POC. WILL CONTINUE TO MONITOR.
--- NOTE | 2019-12-06 14:03 | NUR ---
DR. JUAN SPOKE WITH DR. SEARS TO START CONTEMPLATING A TRACH SPECIALLY AFTER WHAT HAPPENED LAST NIGHT THAT PT HAD NO RESERVES, HE HAD DESATURATED ALL THE WAY TO 17% PER REPORT I RECEIVED FROM MICHAEL ROLLINS. PT HAD TO BE RE- INTUBATED.
--- NOTE | 2019-12-06 14:36 | NUR ---
Nutrition Follow-up Wt.: 99.6 kg Pt is sedated, intubated, receiving artificial ventilation, with guards by bedside when rounded this morning. Currently NPO with TPN support running @60ml/hr providing 1340 kcal, 80 gms protein and 1020 NPCs. Pt with inadequate energy intake from PN support aeb 65% to 74% of est caloric needs. Protein intake from PN support is adequate aeb 89% to 111% protein needs. Noted pt is with Propofol @ 10.8 ml/hr, providing an additional 285 kcals. Will continue to monitor and followup prn. Est. energy needs: 4149-5419 kcals (20-23 kcal/kgBW). Est. protein needs: 72-90 gms/day (0.8-1.0 gm/kgBW). Will continue to monitor pertinent labs and reassess nutrient needs prn. Labs: TPro 5.7 L, Alb 1.7 L, Alk Phos 177 H, Glucose 257 H, Bili 3.4 H, Ca 7.3 L, Skin: Irwin scale 9, high risk, Please refer to wound assessment report for full details PES: 1) Altered nutrition related lab values r/t current medical condition aeb hyponatremia, elevated RFTs, hyperglycemia, hypocalcemia, elev Bili, severe hypoalbuminemia Will continue to monitor NPO status, skin status, pertinent labs and weight trend. F/u in 2 to 3 days. Recommendations: 1) Continue to closely monitor pt NPO status. 2) Advance to EN support or Oral diet when appropriate. 3) If albumin continues trending down, consider Prostat 1 pkt BID 4) Continue current plan of care.
--- NOTE | 2019-12-06 19:30 | NUR ---
Opening Shift Note Assumed care of patient, intubated, sedated. Breathing on ventilator, PCV mode, even and synchronized, No S/S of distress/SOB or pain. NGT to right nare, connected to LIS, greenish bile in the tubing. TLC at right IJ, CDI site. 20G IV at left wrist, CDI site, flushed well. Chest tube at right lateral, connected to wall suction with 20 cmH2O, serosanguineous drainage in the tubing, no air leak noted, no subcutaneous emphysema. Goldstein's hung to gravity with clear light to dark fartun urine. Hand cuff and chuckles at right wrist and both ankles, cushion d/s on, pulses and capillary refill are all good. Bed in low position, all alarms are audible. Two guard officers at bedside. No visitor allowed at this time, will continue to monitor for changes Q1hr and PRN.
[2019-12-06] MEDS ORDERED: TPN PER PHARMACY IV NR ×9 (20:00)
[2019-12-06] MEDS: FLUCONAZOLE 200MG/100ML 100 ML IV SCH ×2 (22:10→23:22)
--- NOTE | 2019-12-06 23:15 | NUR ---
Condition update/ fever Pt's condition stable with deep sedation, will taper down sedation slowly and also Levophed. Body temperature slowly increased, cooling measures applied, will give Tylenol as order if temperature goes up to 100.4F. Continue care.
[2019-12-06] MEDS: ACETAMINOPHEN 325 MG TAB PO PRN (23:22)
[2019-12-07] VITALS (106 sets, daily range): BP systolic 79–133; BP diastolic 45–77
[2019-12-07] MEDS: LINEZOLID 600MG/300ML 300 ML IV SCH ×2 (00:38→12:49)
[2019-12-07] MEDS: VASOPRESSIN 50 UNITS in D5W 5% 247.5 ML IV SCH (01:30)
--- NOTE | 2019-12-07 01:55 | NUR ---
See RASS sedation scale in IV spreadsheet q1hr Addendum: 12/07/19 at 0155 by Garrett Davenport RN Amended: Links added.
--- NOTE | 2019-12-07 02:00 | NUR ---
Condition update Fever better after Tylenol, 99.9F. Decreased Levophed to 14mcg/min, Fentanyl at 180mcg/hr, still in deep sedation, no cough and gag reflex, will taper down slowly, see IV spreadsheet and v/s sheet for info. Continue care. Addendum: 12/07/19 at 0830 by Garrett Davenport RN Noted Hematuria, urine with dark red color, no active bleeding noted, will add CBC in am and petty LUQUE.
[2019-12-07] MEDS: IPRATROPIUM BROM 0.5 MG/2.5ML INH SOL NEB SCH ×6 (02:17→22:04)
[2019-12-07] MEDS: ALBUTEROL SULF 2.5 MG/0.5ML(0.5%) NEB SOLN HHN SCH ×6 (02:17→22:04)
[2019-12-07] MEDS: ACETYLCYSTEINE 10 %(100MG/ML) SOL 4ML IN SCH ×6 (02:18→22:05)
[2019-12-07] MEDS: MEROPENEM IV SCH ×3 (02:38→18:24)
[2019-12-07] MEDS: SODIUM CHL 0.9% IV SCH ×3 (02:38→18:24)
[2019-12-07] MEDS: NOREPINEPHRINE 8 MG/250ML KIT 250 ML IV SCH (03:26)
[2019-12-07] MEDS: PROPOFOL 100 ML IV SCH ×2 (03:53→21:01)
[2019-12-07 03:58] LABS: Eosinophils # (auto) 0.3 10 ^3/uL (0-0.8); Hemoglobin 7.9 g/dL (13.5-17.5); Lymphocytes # (auto) 0.8 10 ^3/uL (0.4-5.4); Monocytes # (auto) 0.4 10 ^3/uL (0-1.3)
[2019-12-07 04:01] LABS: Basophils # (auto) 0.1 10 ^3/uL (0-0.2); Basophils % (auto) 0.5 % (0.0-2.0); Eosinophils % (auto) 2.1 % (0.0-7.0); Hematocrit 24.1 % (41.0-53.0); Lymphocytes % (auto) 6.5 % (10.0-50.0); Mean Corpuscular Hemoglobin 28.4 pg (28.0-32.0); Mean Corpuscular Hgb Conc. 32.9 g/dL (32.0-36.0); Mean Corpuscular Volume 86.4 fL (80.0-100.0); Monocytes % (auto) 2.9 % (0.0-12.0); Platelet Count (auto) 343 10^3/uL (140-450); Red Blood Cells 2.79 10^6/uL (4.5-5.90); Red Cell Distribution Width 16.3 % (11.8-14.3); White Blood Cell 12.5 10^3/uL (4.4-10.8)
[2019-12-07 04:14] LABS: Albumin 1.9 g/dL (3.4-5.0); Calcium 7.4 mg/dL (8.5-10.1); Potassium 4.3 mmol/L (3.5-5.1)
[2019-12-07 04:17] LABS: BUN/Creatinine Ratio 27.3; Bilirubin, Total 2.7 mg/dL (0.2-1.0); Phosphorus 2.8 mg/dL (2.5-4.90); Total Protein 5.6 g/dL (6.4-8.2)
--- NOTE | 2019-12-07 04:45 | NUR ---
Patient bathe/linen change Patient given complete bath with CHG wipes. Skin integrity assessed for any changes, no new changes. Linens changed. Pt tolerated fairly with desaturation on the left lateral side while cleaning the back, 100% O2 breath given through the ventilator and POX increased to mid 90's. Patient repositioned to prevent pressure ulcer.
[2019-12-07] MEDS: METOCLOPRAMIDE HCL 5MG/ml INJ 2ml VIAL IV SCH ×3 (06:15→21:31)
[2019-12-07] MEDS: ACCU-CHEK COMFORT CURVE STRIP VI SCH ×3 (06:16→18:24)
[2019-12-07] MEDS: InsuLIN REG 1unit/0.01ml Soln (100units/ml) SC SCH ×3 (06:19→18:18)
[2019-12-07] MEDS: PHENYLEPHRINE INJ 80 MG in SODIUM CHL 0.9% 250 ML IV SCH (07:27)
[2019-12-07] MEDS: EPINEPHrine HCL INJECTION 8 MG in D5W 5% 250 ML IV SCH (07:45)
[2019-12-07] MEDS: MIDAZOLAM DRIP 50 mg/50mL 50 ML IV SCH (08:01)
[2019-12-07] MEDS: fentaNYL Drip 2500mCg/250mlNS 250 ML IV SCH ×2 (08:02→22:12)
[2019-12-07] MEDS: ALBUMIN 25% 100 ML IV SCH (10:08)
[2019-12-07] MEDS: PANTOPRAZOLE 40 MG/10 ML VIAL INJ IV SCH (10:09)
[2019-12-07] MEDS: INSULIN LANTUS (GLARGINE) 1 /0.01ml (100units/ml) SC SCH ×2 (10:21→22:02)
--- NOTE | 2019-12-07 12:15 | NUR ---
MD Dr. Miller at bedside updated on patient condition with no new orders received.
--- NOTE | 2019-12-07 12:30 | NUR ---
MD Dr. Coleman at bedside updated on patient condition with new orders, this RN to input into system. Will carry out orders per MD.
--- NOTE | 2019-12-07 13:25 | NUR ---
PHONE CALL Received phone call from ana lilia sung social service technician from [facility], updated on patient condition.
--- NOTE | 2019-12-07 14:00 | NUR ---
PHONE CALL Received phone call from Dr. Leone [facility] updated on patient condition.
--- NOTE | 2019-12-07 19:30 | NUR ---
REPORT RECEIVED, ASSUMED CARE.
--- NOTE | 2019-12-07 19:30 | NUR ---
REPORT RECEIVED, ASSUMED CARE.
[2019-12-07] MEDS: TPN PER PHARMACY IV NR ×9 (21:00)
[2019-12-07] MEDS: FLUCONAZOLE 200MG/100ML 100 ML IV SCH (21:29)
[2019-12-07] MEDS: ACETAMINOPHEN 325 MG TAB PO PRN (21:29)
[2019-12-08] VITALS (105 sets, daily range): BP systolic 81–159; BP diastolic 46–84
[2019-12-08] MEDS: VASOPRESSIN 50 UNITS in D5W 5% 247.5 ML IV SCH (01:30)
[2019-12-08] MEDS: ALBUTEROL SULF 2.5 MG/0.5ML(0.5%) NEB SOLN HHN SCH ×6 (02:12→21:59)
[2019-12-08] MEDS: IPRATROPIUM BROM 0.5 MG/2.5ML INH SOL NEB SCH ×6 (02:13→21:59)
[2019-12-08] MEDS: ACETYLCYSTEINE 10 %(100MG/ML) SOL 4ML IN SCH ×6 (02:14→22:00)
[2019-12-08] MEDS: FLUCONAZOLE 200MG/100ML 100 ML IV SCH ×2 (02:46→22:24)
[2019-12-08] MEDS: ACCU-CHEK COMFORT CURVE STRIP VI SCH ×4 (02:47→17:53)
[2019-12-08] MEDS: InsuLIN REG 1unit/0.01ml Soln (100units/ml) SC SCH ×4 (02:48→17:53)
[2019-12-08] MEDS: LINEZOLID 600MG/300ML 300 ML IV SCH ×2 (03:01→12:24)
[2019-12-08] MEDS: SODIUM CHL 0.9% IV SCH ×3 (03:02→18:21)
[2019-12-08] MEDS: MEROPENEM IV SCH ×3 (03:02→18:21)
[2019-12-08 04:17] LABS: Basophils # (auto) 0 10 ^3/uL (0-0.2); Basophils % (auto) 0.2 % (0.0-2.0); Eosinophils # (auto) 0.3 10 ^3/uL (0-0.8); Eosinophils % (auto) 2.7 % (0.0-7.0); Hematocrit 22.4 % (41.0-53.0); Hemoglobin 7.5 g/dL (13.5-17.5); Lymphocytes # (auto) 0.9 10 ^3/uL (0.4-5.4); Lymphocytes % (auto) 9.1 % (10.0-50.0); Mean Corpuscular Hemoglobin 28.9 pg (28.0-32.0); Mean Corpuscular Hgb Conc. 33.6 g/dL (32.0-36.0); Mean Corpuscular Volume 86.2 fL (80.0-100.0); Monocytes # (auto) 0.4 10 ^3/uL (0-1.3); Monocytes % (auto) 3.9 % (0.0-12.0); Neutrophils % (auto) 84.1 % (37.0-80.0); Platelet Count (auto) 286 10^3/uL (140-450); Red Cell Distribution Width 16.4 % (11.8-14.3); White Blood Cell 9.5 10^3/uL (4.4-10.8)
[2019-12-08 04:28] LABS: Albumin 1.8 g/dL (3.4-5.0); Calcium 7.6 mg/dL (8.5-10.1); Magnesium 2.2 mg/dL (1.6-2.6); Potassium 4.2 mmol/L (3.5-5.1)
[2019-12-08 04:32] LABS: BUN/Creatinine Ratio 31.9; Bilirubin, Total 3.8 mg/dL (0.2-1.0); Phosphorus 3.2 mg/dL (2.5-4.90); Total Protein 5.9 g/dL (6.4-8.2)
--- NOTE | 2019-12-08 06:18 | NUR ---
WHILE BATHING PT, IV TO LEFT WRIST BECAME DISLODGED. DRESSING APPLIED, TRIED FOR SECONDARY IV SITE UNABLE TO ACQUIRE IV SITE, WILL CONT TO MONITOR AND GIVE IN REPORT.
[2019-12-08] MEDS: METOCLOPRAMIDE HCL 5MG/ml INJ 2ml VIAL IV SCH ×3 (06:32→22:24)
[2019-12-08] MEDS: EPINEPHrine HCL INJECTION 8 MG in D5W 5% 250 ML IV SCH (06:47)
[2019-12-08] MEDS: PHENYLEPHRINE INJ 80 MG in SODIUM CHL 0.9% 250 ML IV SCH (06:47)
--- NOTE | 2019-12-08 07:02 | NUR ---
GIL ESQUIVEL HERE TO SEE PT FROM LONG TERM, GAVE UPDATE AND REPORT TO HIM AND WILL NOTIFY ONGOING SHIFT RN IN REPORT.
--- NOTE | 2019-12-08 09:20 | NUR ---
EKG AFTER REPOSITIONING PATIENTS HEART RATE INCREASED TO THE 170'S AND SUSTAINED. EKG PERFORMED AND CONFIRMED AFIB RVR IN 170-180S. WILL CALL
--- NOTE | 2019-12-08 09:22 | NUR ---
RADIOLOGIST CALLED TO INFORM OF CXR RESULTS. WILL CALL .
--- NOTE | 2019-12-08 09:26 | NUR ---
CALLED MD SPOKE TO DR Margo HUMPHREYS FOR PATIENTS RHYTHM CHANGE AFIB RVR 170-180S SUSTAINING. PER MD ADMINISTER AMIODARONE PER PROTOCOL, METOPROLOL 2.5MG IVP Q4 HR PRN FOR HEART RATE 100 OR GREATER, ADMINISTER DIGOXIN 500MCG IVP X 1 DOSE. ALL ORDERS NOTED IN CHART.
--- NOTE | 2019-12-08 09:27 | NUR ---
LEFT MESSAGE FOR DR CABRALES TO INFORM OF CXR RESULTS. AWAITING CALL BACK.
[2019-12-08] MEDS ORDERED: AMIODARONE HCL 150 MG in D5W 5% 100 ML IV ONE (09:30)
[2019-12-08] MEDS ORDERED: DIGOXIN (250MCG/ML) 2 ML AMPULE IV ONE ×3 (09:30→18:00)
[2019-12-08] MEDS ORDERED: DIGOXIN (250MCG/ML) 2 ML AMPULE ONE (09:35)
[2019-12-08] MEDS ORDERED: AMIODARONE HCL 900 MG in DEXTROSE 500 ML IV SCH (09:38)
--- NOTE | 2019-12-08 09:44 | NUR ---
MED NEB HELD AT THIS TIME. HR IS HIGH 150-180's. MICHAEL ROJAS MADE AWARE.
[2019-12-08] MEDS ORDERED: METOPROLOL TARTRATE 1MG/1ML-5ML VIAL IV SCH (10:00)
[2019-12-08] MEDS: PANTOPRAZOLE 40 MG/10 ML VIAL INJ IV SCH (10:06)
[2019-12-08] MEDS: INSULIN LANTUS (GLARGINE) 1 /0.01ml (100units/ml) SC SCH ×2 (10:19→22:24)
--- NOTE | 2019-12-08 10:23 | NUR ---
DR JUAN AT BEDSIDE TO ASSESS PATIENT AND DISCUSS PLAN OF CARE. MD INFORMED OF CXR RESULTS. PER MD INCREASE INSPIRATORY PRESSURE TO 26. RESPIRATORY THERAPIST AT BEDSIDE.
[2019-12-08] MEDS: ALBUMIN 25% 100 ML IV SCH (10:38)
[2019-12-08] MEDS: METOPROLOL TARTRATE 1MG/1ML-5ML VIAL IV PRN (10:44)
[2019-12-08] MEDS: fentaNYL Drip 2500mCg/250mlNS 250 ML IV SCH (10:44)
--- NOTE | 2019-12-08 10:55 | NUR ---
SPOKE TO DR CABRALES AND INFORMED OF CXR RESULTS AND CURRENT VENTILATOR CHANGES. PER MD INCREASE INSPIRATORY PRESSURE TO KEEP TV [address] JUAN OF DR CABRALES ORDER. 1106 INSPIRATORY PRESSURE INCREASED TO 30 RESPIRATORY THERAPIST AT BEDSIDE TO ADJUSTMENTS.
[2019-12-08] MEDS ORDERED: MEROPENEM 1GM IVPB 100 ML IV ONE (11:11)
--- NOTE | 2019-12-08 11:14 | NUR ---
SPOKE TO DR BARNETT AND INFORMED MD OF CONSULT FOR TRACH. PER MD KEEP PATIENT NPO STARTING WEDNESDAY NIGHT PATIENT TO HAVE TRACH WEDNESDAY. ALL ORDERS NOTED IN CHART.
--- NOTE | 2019-12-08 11:20 | NUR ---
DR CASTELLON AT BEDSIDE TO ASSESS PATIENT AND DISCUSS PLAN OF CARE. MD MADE AWARE OF PATIENTS CHANGE IN STATUS.
--- NOTE | 2019-12-08 11:56 | NUR ---
CALLED LEFT MESSAGE FOR DR Margo HUMPHREYS TO INFORM OF PATIENTS CONTINUED INCREASED HEART RATE 150-160 A FIB RVR. AWAITING CALL BACK.
--- NOTE | 2019-12-08 12:00 | NUR ---
WOUND CARE IN TO ASSESS PATIENT. INFORMED PATIENT IS TOO UNSTABLE TO ASSESS AT THIS TIME. PATIENT CURRENTLY IN A FIB RVR AND BLOOD PRESSURES LABILE.
--- NOTE | 2019-12-08 12:00 | NUR ---
WOUND CARE NOTE: WOUND CARE TEAM IN TO SEE PATIENT AT THIS TIME FOR SKIN INTEGRITY MONITORING. ADVISED BY BEDSIDE NURSE THAT PATIENT IS IN AFIB RVR AND NOT STABLE FOR TURNING OR ASSESSMENT. WILL ATTEMPT TO SEE PATIENT WHEN PATIENT IS MORE STABLE. UPDATED SKIN/WOUND CARE PLAN. SPECIALTY AIR BED ORDERED. PATIENT TO BE PLACED ON BED UPON DELIVERY BY [facility] AND WHEN PATIENT IS STABLE ENOUGH TO BE TRANSFERRED. RECOMMEND: CONTINUATION OF WOUND CARE ORDERS PRESCRIBED BY MD. SPECIALTY AIR BED ORDERED. CONTINUED MONITORING BY WOUND CARE TEAM.
--- NOTE | 2019-12-08 12:22 | NUR ---
CHARGE NURSE RIA SPOKE TO DR Margo HUMPHREYS AND INFORMED OF PATIENT CHANGE IN STATUS AND CONTINUED INCREASED HEART RATE. PER MD ADMINISTER DIGOXIN 250MCG X1 DOSE IVP, AND METOPROLOL 2.5MG IVP X4 DOSES Q15MIN TO KEEP HEART RATE LESS THAN 100. ALL ORDERS NOTED IN CHART.
[2019-12-08] MEDS ORDERED: METOPROLOL TARTRATE 1MG/1ML-5ML VIAL IV PRN (12:30)
[2019-12-08] MEDS: EPINEPHrine HCL 250 ML IV SCH (14:34)
[2019-12-08] MEDS: PHENYLEPHRINE IV 250 ML IV SCH ×2 (14:39→22:59)
[2019-12-08] MEDS: MIDAZOLAM DRIP 50 mg/50mL 50 ML IV SCH (15:42)
[2019-12-08] MEDS: AMIODARONE HCL 900 MG in DEXTROSE 500 ML IV SCH (16:00)
--- NOTE | 2019-12-08 16:11 | NUR ---
SPOKE TO DR CABRALES AND UPDATED ON PATIENT STATUS AND VENTILATOR CHANGES BY PULMONARY. PER MD REPEAT CXR TOMORROW MORNING. ALL ORDERS NOTED IN CHART.
--- NOTE | 2019-12-08 17:47 | NUR ---
DR Margo HUMPHREYS AT BEDSIDE TO ASSESS PATIENT AND DISCUSS PLAN OF CARE. PER MD ADMINISTER 250MCG DIGOXIN IVP X1 DOSE NOW. ALL ORDERS NOTED IN CHART AND CARRIED OUT.
[2019-12-08] MEDS: NOREPINEPHRINE 8 MG/250ML KIT 250 ML IV SCH (19:00)
[2019-12-08] MEDS: TPN PER PHARMACY IV NR ×18 (20:00→21:08)
[2019-12-09] VITALS (100 sets, daily range): BP systolic 100–166; BP diastolic 53–89
[2019-12-09] MEDS: FLUCONAZOLE 200MG/100ML 100 ML IV SCH ×3 (00:28→22:49)
[2019-12-09] MEDS: LINEZOLID 600MG/300ML 300 ML IV SCH ×2 (00:30→14:27)
[2019-12-09] MEDS: VASOPRESSIN 50 UNITS in D5W 5% 247.5 ML IV SCH ×2 (01:30→20:23)
[2019-12-09] MEDS: ACETYLCYSTEINE 10 %(100MG/ML) SOL 4ML IN SCH ×6 (02:09→22:07)
[2019-12-09] MEDS: IPRATROPIUM BROM 0.5 MG/2.5ML INH SOL NEB SCH ×6 (02:09→22:07)
[2019-12-09] MEDS: ALBUTEROL SULF 2.5 MG/0.5ML(0.5%) NEB SOLN HHN SCH ×6 (02:09→22:07)
[2019-12-09] MEDS: SODIUM CHL 0.9% IV SCH ×3 (02:50→17:58)
[2019-12-09] MEDS: MEROPENEM IV SCH ×3 (02:50→17:58)
[2019-12-09 03:46] LABS: Basophils # (auto) 0.1 10 ^3/uL (0-0.2); Eosinophils # (auto) 0.2 10 ^3/uL (0-0.8); Lymphocytes # (auto) 1.1 10 ^3/uL (0.4-5.4); Mean Corpuscular Hgb Conc. 33.4 g/dL (32.0-36.0); Monocytes # (auto) 0.3 10 ^3/uL (0-1.3); Monocytes % (auto) 3.4 % (0.0-12.0); Red Blood Cells 2.44 10^6/uL (4.5-5.90)
[2019-12-09 03:48] LABS: Basophils % (auto) 0.7 % (0.0-2.0); Eosinophils % (auto) 1.7 % (0.0-7.0); Lymphocytes % (auto) 11.7 % (10.0-50.0); Mean Corpuscular Hemoglobin 28.7 pg (28.0-32.0); Mean Corpuscular Volume 85.8 fL (80.0-100.0); Neutrophils # (auto) 7.9 10 ^3/uL (1.6-8.6); Neutrophils % (auto) 82.5 % (37.0-80.0); Nucleated Red Blood Cells % 0.1 %; Platelet Count (auto) 264 10^3/uL (140-450); Red Cell Distribution Width 15.9 % (11.8-14.3); White Blood Cell 9.6 10^3/uL (4.4-10.8)
[2019-12-09 04:08] LABS: Albumin 1.8 g/dL (3.4-5.0); Calcium 7.6 mg/dL (8.5-10.1); Magnesium 2.1 mg/dL (1.6-2.6)
[2019-12-09 04:13] LABS: BUN/Creatinine Ratio 37.7; Bilirubin, Total 2.9 mg/dL (0.2-1.0); Phosphorus 2.6 mg/dL (2.5-4.90); Total Protein 5.9 g/dL (6.4-8.2)
[2019-12-09] MEDS: METOCLOPRAMIDE HCL 5MG/ml INJ 2ml VIAL IV SCH ×3 (06:15→21:52)
[2019-12-09] MEDS: ACCU-CHEK COMFORT CURVE STRIP VI SCH ×4 (06:16→18:20)
[2019-12-09] MEDS: InsuLIN REG 1unit/0.01ml Soln (100units/ml) SC SCH ×4 (06:16→18:21)
--- NOTE | 2019-12-09 06:19 | NUR ---
Respiratory note: RECEIVED PATIENT ON V18 CARESCAPE VENT ORALLY INTUBATED WITH AN 8.0 ETT SECURED VIA SYLVIE AT THE 24CM MARKING, AND MECHANICALLY VENTILATED WITH THE CHARTED SETTINGS. SPO2 99%, LUNG SOUNDS DIM/COARSE T/O, SCANT AMOUNT OF THICK CLEAR SECRETIONS WHEN SUCTIONED. SKIN IS WARM/DRY TO THE TOUCH AND IS INTACT NEAR SYLVIE SITE. THERE IS A NGT IN THE RIGHT NARE AND SECURED TO THE NOSE, AND A LEFT BRACHIAL A-LINE IS IN PLACE AND PATENT. NO NEW AM CXR TO ASSESS. PATIENT IS UNRESPONSIVE TO VERBAL STIMULI, BUT DOES RESPOND SOME TO TACTILE STIMULI, AND IS SEDATED ON FENTANYL DRIP. HE IS RESTING COMFORTABLY AND TOLERATING VENT WELL, NO CHANGES MADE. VENT PLUGGED INTO RED OUTLET AND ALL ALARMS ARE SET AND AUDIBLE. WILL CONTINUE TO ASSESS PATIENT WELL VENTILATOR FUNCTION. MED-NEB RUN INLINE VIA [facility].
[2019-12-09] MEDS: PHENYLEPHRINE IV 250 ML IV SCH ×4 (07:19→20:23)
[2019-12-09] MEDS: fentaNYL Drip 2500mCg/250mlNS 250 ML IV SCH ×2 (07:52→20:00)
--- NOTE | 2019-12-09 08:20 | NUR ---
Opening note Assumed care of patient at this time. Report received from mold shifter RN. POC reviewed. Sedated Fentanyl @150. Received pt with right chest tube to 20 cm of suction, sanguinous fluid draining. OGT to LIS. Goldstein catheter draining to gravity dark fartun urine. Right Intrajugular Central line and a Left axillary a-line both benign and patent. PT has shackles on both ankles and right wrist with barriers. Skin intact under shackles. Guards at bedside. VSS. Bed locked and in lowest position, safety precautions in place. Will continue to monitor pt carefully.
[2019-12-09] MEDS: PANTOPRAZOLE 40 MG/10 ML VIAL INJ IV SCH (09:46)
[2019-12-09] MEDS: AMIODARONE HCL 900 MG in DEXTROSE 500 ML IV SCH (09:48)
[2019-12-09] MEDS: ALBUMIN 25% 100 ML IV SCH (10:04)
--- NOTE | 2019-12-09 10:16 | NUR ---
DELIA LIN MD FOR LOW HEMOGLOBIN AND CONSENT FOR CT
--- NOTE | 2019-12-09 10:28 | NUR ---
SPOKE TO RAVINDER RECEIVED NEW ORDERS
[2019-12-09] MEDS ORDERED: IOHEXOL 300 MG/ML 100ML BOTTLE IJ ONE (10:42)
--- NOTE | 2019-12-09 11:00 | NUR ---
RADIOLOGY Patient transported to radiology for Chest CT via bed with portable ventilator and monitor. Accompanies by RT and RN. Consent present. Vitals stable at time of transport.
--- NOTE | 2019-12-09 11:27 | NUR ---
RT Transport Note: Patient transported to CT with MICHAEL HARVEY. Patient transported to and from procedure on ventilator with previous ordered settings. Patient on case monitor with alarms set and audible, ambu-bag/mask connected to 02 tank. Patient returned to room with no adverse reaction noted. Transport completed without incident.
--- NOTE | 2019-12-09 11:42 | NUR ---
Nutrition Follow-up Wt.: 99.8 kg Pt is sedated, intubated, receiving artificial ventilation, with guards by bedside when rounded this morning. Currently NPO with TPN support running @61 ml/hr providing 1340 kcal, 80 gms protein and 1020 NPCs. Pt with inadequate energy intake from PN support aeb 65% to 74% of est caloric needs. Protein intake from PN support is adequate aeb 89% to 111% protein needs. Will continue to monitor NPO status, skin status, pertinent labs and weight trends. Will f/u in 2 to 3 days. Est. energy needs: 5168-2249 kcals (20-23 kcal/kgBW). Est. protein needs: 72-90 gms/day (0.8-1.0 gm/kgBW). Labs 12/08: Na 133 L, BUN 26 H, Cr 0.69 L, Glucose 300 H, Ca 7.6 L, total bilirubin 2.9 H, alkaline phosphatase 245 H, TP 5.9 L, Albumin 1.8 L. POC 225 H (12/07). Skin: Irwin scale 9, high risk, closed blister to R abdomen. Please refer to wound assessment report for full details PES: 1) Altered nutrition related lab values r/t current medical condition aeb hyponatremia, elevated RFTs, hyperglycemia, hypocalcemia, elev Bili, severe hypoalbuminemia Recommendations: 1) Continue to closely monitor pt NPO status. 2) Advance to EN support or Oral diet when appropriate. 3) If albumin continues trending down, consider Prostat 1 pkt BID. 4) Continue current plan of care.
[2019-12-09] MEDS: INSULIN LANTUS (GLARGINE) 1 /0.01ml (100units/ml) SC SCH ×2 (11:58→22:46)
--- NOTE | 2019-12-09 13:18 | NUR ---
MD VISIT: PCP at bedside. MD aware of CXR, Chest CT, plan of care, and labs. MD to be notified of new CBC results to assess the need for blood transfusion.
--- NOTE | 2019-12-09 13:26 | NUR ---
MD UPDATE: CARDIOTHORACIC Spoke with regarding Chest CT results. MD aware, recommends bronchoscopy by consumer affairs director. MD updated on chest tube output. No further interventions at this time.
[2019-12-09 13:34] LABS: Basophils # (auto) 0 10 ^3/uL (0-0.2); Basophils % (auto) 0.2 % (0.0-2.0); Eosinophils # (auto) 0.3 10 ^3/uL (0-0.8); Eosinophils % (auto) 2.9 % (0.0-7.0); Hemoglobin 7.1 g/dL (13.5-17.5); Neutrophils # (auto) 7.4 10 ^3/uL (1.6-8.6); Red Cell Distribution Width 16.1 % (11.8-14.3)
[2019-12-09 13:36] LABS: Hematocrit 21.1 % (41.0-53.0); Lymphocytes # (auto) 0.8 10 ^3/uL (0.4-5.4); Lymphocytes % (auto) 9.2 % (10.0-50.0); Mean Corpuscular Hemoglobin 28.5 pg (28.0-32.0); Mean Corpuscular Hgb Conc. 33.6 g/dL (32.0-36.0); Mean Corpuscular Volume 84.8 fL (80.0-100.0); Monocytes # (auto) 0.4 10 ^3/uL (0-1.3); Monocytes % (auto) 4.2 % (0.0-12.0); Neutrophils % (auto) 83.5 % (37.0-80.0); Platelet Count (auto) 249 10^3/uL (140-450); Red Blood Cells 2.49 10^6/uL (4.5-5.90); White Blood Cell 8.9 10^3/uL (4.4-10.8)
--- NOTE | 2019-12-09 13:42 | NUR ---
UPDATED RAVINDER ON NEW HGB LEVELS NO NEW ORDERS
[2019-12-09] MEDS: EPINEPHrine HCL 250 ML IV SCH (14:34)
[2019-12-09] MEDS: MIDAZOLAM DRIP 50 mg/50mL 50 ML IV SCH (15:42)
[2019-12-09] MEDS: PROPOFOL 100 ML IV SCH (16:36)
--- NOTE | 2019-12-09 17:00 | NUR ---
Amparo HUMPHREYS AT BEDSIDE NEW ORDERS RECEIVED
--- NOTE | 2019-12-09 17:00 | NUR ---
CARES Complete linen and gown change complete. Skin reassessment performed. Jenise care performed. Patient repositioned on side, vitals stable.
--- NOTE | 2019-12-09 17:25 | NUR ---
DR JUAN AT BEDSIDE
[2019-12-09] MEDS: NOREPINEPHRINE 8 MG/250ML KIT 250 ML IV SCH (19:00)
--- NOTE | 2019-12-09 19:15 | NUR ---
Opening Shift Note Assumed care of patient, intubated and sedated on fentanyl @ 200 mcg. Breathing on ventilator, PCV mode, even and synchronized, No S/S of distress/SOB or pain. NGT to right nare, connected to LIS, greenish bile in the tubing. TLC at right IJ, CDI site. 20G IV at left wrist, CDI site, flushed well. Chest tube at right lateral, connected to wall suction with 20 cmH2O, serosanguineous drainage in the tubing, no air leak noted, no subcutaneous emphysema. Goldstein's hung to gravity with clear light to dark fartun urine. Hand cuff and chuckles at right wrist and both ankles, cushion d/s on, pulses and capillary refill are all good. Bed in low position, all alarms are audible. Two guard officers at bedside.
[2019-12-09] MEDS: TPN PER PHARMACY IV NR ×9 (19:53)
[2019-12-09] MEDS ORDERED: TPN PER PHARMACY IV NR ×9 (20:00)
[2019-12-09] MEDS: AMIODARONE HCL 200 MG TAB PO SCH (21:52)
[2019-12-10] VITALS (106 sets, daily range): BP systolic 94–196; BP diastolic 34–111
[2019-12-10] MEDS: InsuLIN REG 1unit/0.01ml Soln (100units/ml) SC SCH ×4 (00:51→18:00)
[2019-12-10] MEDS: LINEZOLID 600MG/300ML 300 ML IV SCH ×2 (00:51→16:45)
[2019-12-10] MEDS: ACCU-CHEK COMFORT CURVE STRIP VI SCH ×4 (00:51→18:00)
[2019-12-10] MEDS: ACETYLCYSTEINE 10 %(100MG/ML) SOL 4ML IN SCH ×6 (02:02→22:10)
[2019-12-10] MEDS: ALBUTEROL SULF 2.5 MG/0.5ML(0.5%) NEB SOLN HHN SCH ×6 (02:02→22:10)
[2019-12-10] MEDS: IPRATROPIUM BROM 0.5 MG/2.5ML INH SOL NEB SCH ×6 (02:02→22:10)
--- NOTE | 2019-12-10 02:07 | NUR ---
BED BATH BED BATH GIVEN USING CHG WIPES AND SOAP AND WATER. SKIN REASSESSED AND NO NEW BREAK DOWN NOTED. COMPLETE LINEN CHANGE GIVEN. VSS
[2019-12-10] MEDS: SODIUM CHL 0.9% IV SCH ×3 (02:15→18:41)
[2019-12-10] MEDS: MEROPENEM IV SCH ×3 (02:15→18:41)
--- NOTE | 2019-12-10 02:49 | NUR ---
right ac 20 removed upon turning patient to provide conformability 20 g to right ac was dislodged
[2019-12-10 04:18] LABS: Basophils # (auto) 0 10 ^3/uL (0-0.2); Eosinophils # (auto) 0.2 10 ^3/uL (0-0.8); Eosinophils % (auto) 2.6 % (0.0-7.0); Hemoglobin 7.2 g/dL (13.5-17.5); Lymphocytes # (auto) 0.7 10 ^3/uL (0.4-5.4); Monocytes # (auto) 0.4 10 ^3/uL (0-1.3); Neutrophils # (auto) 7.8 10 ^3/uL (1.6-8.6); White Blood Cell 9.2 10^3/uL (4.4-10.8)
[2019-12-10 04:20] LABS: Basophils % (auto) 0.3 % (0.0-2.0); Hematocrit 21.3 % (41.0-53.0); Lymphocytes % (auto) 7.1 % (10.0-50.0); Mean Corpuscular Hemoglobin 28.6 pg (28.0-32.0); Mean Corpuscular Hgb Conc. 33.7 g/dL (32.0-36.0); Mean Corpuscular Volume 84.9 fL (80.0-100.0); Monocytes % (auto) 4.8 % (0.0-12.0); Neutrophils % (auto) 85.2 % (37.0-80.0); Nucleated Red Blood Cells % 0.1 %; Platelet Count (auto) 252 10^3/uL (140-450); Red Cell Distribution Width 16.3 % (11.8-14.3)
[2019-12-10 04:34] LABS: Albumin 1.9 g/dL (3.4-5.0); Calcium 7.5 mg/dL (8.5-10.1); INR 1.13 (0.9-1.15); Partial Thromboplastin Time 35.7 sec (23.64-32.05); Potassium 3.7 mmol/L (3.5-5.1)
[2019-12-10 04:43] LABS: BUN/Creatinine Ratio 36.4; Bilirubin, Total 2.9 mg/dL (0.2-1.0); Phosphorus 2.5 mg/dL (2.5-4.90); Pre Albumin 8.1 mg/dL (20.0-40.0)
[2019-12-10] MEDS: METOCLOPRAMIDE HCL 5MG/ml INJ 2ml VIAL IV SCH ×3 (06:00→21:59)
[2019-12-10] MEDS: fentaNYL Drip 2500mCg/250mlNS 250 ML IV SCH ×2 (06:30→20:18)
--- NOTE | 2019-12-10 07:35 | NUR ---
INITIAL ASSESSMENT Report received from Brain RN, care assumed. Patient is awake, alert, and able to follow simple commands. Patient appears to be anxious due to heart rate increasing from 98-120's sinus. Blood pressure ranging 130-180's left axillary arterial line. Afebrile. Patient does track and squeeze hand on command. SCD's on bilateral lower extremities. Pulses palpable bilaterally. Patient intubated on ventilator, tolerating well, oxygen saturation 98%, denies shortness of breath. Bowel sounds hypoactive, soft, nontender. See skin/wound assessment. Patient on specialty air mattress with frequent turning schedule. All extremities off loaded on pillows. Bed locked in lowest position, alarms in place, will continue to monitor.
[2019-12-10] MEDS: PROPOFOL 100 ML IV SCH ×3 (07:45→20:17)
--- NOTE | 2019-12-10 07:45 | NUR ---
SEDATION Patient is very awake and anxious. Heart rate increasing to 120's with blood pressure fluctuating to 180's. Patient oriented to situation and location. Patient able to move legs and upper extremities with severe weakness. Patient follows commands. Patient complains of pain near chest tube site. Patient on fentanyl drip for pain. Diprivan started at low dose to decrease anxiousness. Patient scheduled for bedside procedure today. Once procedure is complete with decrease sedation. Vitals remain stable at this time. Will continue to monitor.
--- NOTE | 2019-12-10 08:00 | NUR ---
MAY/ URINE OUTPUT Patient had decreased on PM shift. Manual flush performed. Moderate amount of old clots/sediment and urine. 1525 cc urine drain from May catheter.
[2019-12-10] MEDS ORDERED: SODIUM CHLORIDE LOCK 0 ML ONE (08:18)
[2019-12-10] MEDS ORDERED: LIDOCAINE 2%HCL (LOCAL ANESTH.) INJ 20ML MDV ONE (08:18)
[2019-12-10] MEDS ORDERED: EPINEPHrine HCL 1 MG/1 ML AMP ONE (08:19)
[2019-12-10] MEDS ORDERED: GLYCOPYRROLATE 0.2 MG/ML 1ML VIAL ONE (08:19)
[2019-12-10] MEDS ORDERED: MIDAZOLAM HCL 5 MG/ML-1ML VIAL ONE (08:19)
[2019-12-10] MEDS: PHENYLEPHRINE IV 250 ML IV SCH ×2 (08:19→16:39)
[2019-12-10] MEDS ORDERED: LIDOCAINE HCL 2% TOP JELLY 5ML TOP ONE (08:19)
[2019-12-10] MEDS ORDERED: fentaNYL CITRATE 100 MCG/2 ML VL ONE (08:20)
[2019-12-10] MEDS: INSULIN LANTUS (GLARGINE) 1 /0.01ml (100units/ml) SC SCH ×2 (10:00→22:16)
--- NOTE | 2019-12-10 11:10 | NUR ---
MD VISIT: PULMargo Oneill at bedside assessing patient. MD reviewing chart. No new orders received at this time.
--- NOTE | 2019-12-10 11:15 | NUR ---
MD VISIT: CARDIO at [facility]. No new orders received at this time.
[2019-12-10] MEDS: PANTOPRAZOLE 40 MG/10 ML VIAL INJ IV SCH (11:20)
[2019-12-10] MEDS: ALBUMIN 25% 100 ML IV SCH (11:20)
[2019-12-10] MEDS: AMIODARONE HCL 200 MG TAB PO SCH ×2 (11:36→21:59)
[2019-12-10] MEDS: DIGOXIN (250MCG/ML) 2 ML AMPULE IV SCH (11:37)
--- NOTE | 2019-12-10 11:50 | NUR ---
MD VISIT: PCP at bedside. MD aware of labs, CXR, and bedside bronchoscopy ordered for today. No new orders received at this time.
--- NOTE | 2019-12-10 12:00 | NUR ---
WOUND CARE NOTE: IN TO SEE PATIENT AT THIS TIME FOR SKIN INTEGRITY MONITORING. PATIENT CONTINUES TO REST ON SPECIALTY AIR BED. HE REMAINS INTUBATED, SEDATED. PATIENT IS NOTED TO HAVE GENERALIZED EDEMA. PATIENT TURNED TO LEFT SIDE. HE CONTINUES TO DISPLAY MASD TO THE SACRUM/BUTTOCKS. THERE IS NOW PARTIAL THICKNESS SKIN EROSION NOTED. SKIN IS DARK RED, BRIGHT RED, AND PINK. OPEN WOUND BED IS PINK. WOUND MEASURES 8 X 5 CM. APPLIED ZGUARD, OPTIFOAM GENTLE SACRAL DRESSING. PATIENT NOTED TO HAVE 3 SMALL SERUM FILLED BLISTERS TO THE LEFT UPPER POSTERIOR THIGH. NO OPEN OR DRAINING AREAS NOTED, LEFT OPEN TO AIR. ADVISED BEDSIDE NURSE TO PROVIDE SIDE TO SIDE POSITIONING FOR PATIENT, AVOIDING SUPINE POSITION. SKIN/WOUND CARE PLAN UPDATED. RECOMMEND: SIDE TO SIDE POSITIONING, AVOIDING SUPINE POSITION, CONTINUATION WITH ALL OTHER WOUND CARE ORDERS PREVIOUSLY PRESCRIBED BY MD. WOUND CARE TEAM WILL CONTINUE TO MONITOR. Addendum: 12/10/19 at 1546 by Denisha Thornton RN Amended: Links added.
--- NOTE | 2019-12-10 12:05 | NUR ---
WOUND CARE Dea geriatric personal care aide nurse at bedside for skin reassessment.
--- NOTE | 2019-12-10 12:35 | NUR ---
BEDSIDE PROCEDURE O.R. team at bedside for Bronchoscopy. Two MD consent for procedure. at bedside, RT Alejandra present. Sedation of Fentanyl and Diprivan in use. Patient vitals stable at this time. Will continue to monitor.
[2019-12-10] MEDS: EPINEPHrine HCL 250 ML IV SCH (14:34)
[2019-12-10] MEDS: MIDAZOLAM DRIP 50 mg/50mL 50 ML IV SCH (14:42)
--- NOTE | 2019-12-10 15:00 | NUR ---
CARES/IV DRESSING CHANGE Complete linen change performed. Patient tolerated activity well, repositioned on side. Right lateral chest tube site intact, dressing secures, no air leak. Oral care complete. Right IJ TLC dressing performed. Bed locked in lowest position, head of bed greater than 30 degrees, alarms in place. Will continue to monitor.
[2019-12-10] MEDS: NOREPINEPHRINE 8 MG/250ML KIT 250 ML IV SCH (19:00)
--- NOTE | 2019-12-10 19:15 | NUR ---
Opening Shift Note Assumed care of patient, intubated and sedated on fentanyl @ 200 mcg AND PROP. Breathing on ventilator, PCV mode, even and synchronized, No S/S of distress/SOB or pain. NGT to right nare, connected to LIS, greenish bile in the tubing. TLC at right IJ, CDI site. 20G IV at left wrist, CDI site, flushed well. Chest tube at right lateral, connected to wall suction with 20 cmH2O, serosanguineous drainage in the tubing, no air leak noted, no subcutaneous emphysema. Goldstein's hung to gravity with clear light to dark fartun urine. Hand cuff and chuckles at right wrist and both ankles, cushion d/s on, pulses and capillary refill are all good. Bed in low position, all alarms are audible. Two guard officers at bedside. Addendum: 12/11/19 at 0747 by Gerson Mcfadden RN RN NO 20G IV at left wrist
--- NOTE | 2019-12-10 19:23 | NUR ---
REPORT Report given to Etienne RODRIGUEZ, care endorsed.
[2019-12-10] MEDS ORDERED: TPN PER PHARMACY IV NR ×10 (20:00)
[2019-12-10] MEDS ORDERED: PROPOFOL 100 ML IV ONE (20:03)
[2019-12-10] MEDS: FLUCONAZOLE 200MG/100ML 100 ML IV SCH ×2 (21:36→23:15)
[2019-12-11] VITALS (98 sets, daily range): BP systolic 78–167; BP diastolic 50–103
[2019-12-11] MEDS: LINEZOLID 600MG/300ML 300 ML IV SCH ×2 (00:30→15:28)
[2019-12-11] MEDS: PHENYLEPHRINE IV 250 ML IV SCH ×3 (00:59→17:39)
[2019-12-11] MEDS: ACCU-CHEK COMFORT CURVE STRIP VI SCH ×4 (01:01→18:00)
[2019-12-11] MEDS: VASOPRESSIN 50 UNITS in D5W 5% 247.5 ML IV SCH (01:01)
[2019-12-11] MEDS: SODIUM CHL 0.9% IV SCH ×2 (02:13→10:57)
[2019-12-11] MEDS: MEROPENEM IV SCH ×2 (02:13→10:57)
[2019-12-11] MEDS: ALBUTEROL SULF 2.5 MG/0.5ML(0.5%) NEB SOLN HHN SCH ×6 (02:18→22:18)
[2019-12-11] MEDS: ACETYLCYSTEINE 10 %(100MG/ML) SOL 4ML IN SCH ×6 (02:18→22:18)
[2019-12-11] MEDS: IPRATROPIUM BROM 0.5 MG/2.5ML INH SOL NEB SCH ×6 (02:18→22:18)
[2019-12-11 04:00] LABS: INR 1.18 (0.9-1.15); Partial Thromboplastin Time 35.2 sec (23.64-32.05)
--- NOTE | 2019-12-11 04:02 | NUR ---
RECEIVED PHONE CALL FROM RIDING COACH SKILLED NURSING SOCIAL WORK MISS LAMAS CALLED LIYA UPDATED ON PATIENT STATUS. UPDATED ON PATIENT STATUS
[2019-12-11 04:06] LABS: Calcium 7.6 mg/dL (8.5-10.1); Magnesium 2.1 mg/dL (1.6-2.6); Potassium 3.4 mmol/L (3.5-5.1)
[2019-12-11 04:10] LABS: BUN/Creatinine Ratio 27.9; Bilirubin, Total 2.6 mg/dL (0.2-1.0); Phosphorus 3.2 mg/dL (2.5-4.90); Total Protein 6.2 g/dL (6.4-8.2)
--- NOTE | 2019-12-11 05:00 | NUR ---
COMPLETE BED BATH AND CHG BATH GIVEN PATIENT TOLERATED WELL. SKIN REASSESSED AND NO NEW BREAK DOWN NOTED.
[2019-12-11 05:46] LABS: Basophils # (auto) 0 10 ^3/uL (0-0.2); Basophils % (auto) 0.5 % (0.0-2.0); Eosinophils # (auto) 0.5 10 ^3/uL (0-0.8); Eosinophils % (auto) 5.2 % (0.0-7.0); Hematocrit 21.4 % (41.0-53.0); Hemoglobin 7.1 g/dL (13.5-17.5); Lymphocytes % (auto) 10.1 % (10.0-50.0); Mean Corpuscular Hemoglobin 28.4 pg (28.0-32.0); Mean Corpuscular Hgb Conc. 33.1 g/dL (32.0-36.0); Mean Corpuscular Volume 85.6 fL (80.0-100.0); Monocytes # (auto) 0.5 10 ^3/uL (0-1.3); Monocytes % (auto) 4.6 % (0.0-12.0); Neutrophils # (auto) 7.9 10 ^3/uL (1.6-8.6); Neutrophils % (auto) 79.6 % (37.0-80.0); Nucleated Red Blood Cells % 0.1 %; Platelet Count (auto) 248 10^3/uL (140-450); Red Cell Distribution Width 16.4 % (11.8-14.3); White Blood Cell 9.9 10^3/uL (4.4-10.8)
[2019-12-11] MEDS: InsuLIN REG 1unit/0.01ml Soln (100units/ml) SC SCH ×4 (06:00→19:47)
--- NOTE | 2019-12-11 06:00 | NUR ---
COOLING MEASURES STARTED TEMP 100, MADE ROOM COLD, PLACED 2 ICE PACK ON PATIENT
[2019-12-11] MEDS ORDERED: fentaNYL Drip 2500mCg/250mlNS 250 ML IV ONE ×2 (07:10→19:35)
[2019-12-11] MEDS: METOCLOPRAMIDE HCL 5MG/ml INJ 2ml VIAL IV SCH ×3 (07:43→22:16)
[2019-12-11] MEDS: INSULIN LANTUS (GLARGINE) 1 /0.01ml (100units/ml) SC SCH ×2 (10:00→22:17)
[2019-12-11] MEDS: ALBUMIN 25% 100 ML IV SCH (10:00)
[2019-12-11] MEDS: DIGOXIN (250MCG/ML) 2 ML AMPULE IV SCH (10:54)
[2019-12-11] MEDS: AMIODARONE HCL 200 MG TAB PO SCH ×2 (10:56→22:16)
[2019-12-11] MEDS: PANTOPRAZOLE 40 MG/10 ML VIAL INJ IV SCH (10:56)
[2019-12-11] MEDS: POTASSIUM CHL 20MEQ/100ML 100 ML IV SCH ×2 (10:57→13:30)
--- NOTE | 2019-12-11 11:00 | NUR ---
DR CASTELLON AT BEDSIDE DISCUSSED PLAN OF CARE
[2019-12-11] MEDS ORDERED: ROCURONIUM 10MG/ML 10ML VIAL IV ONE (12:32)
[2019-12-11] MEDS ORDERED: fentaNYL CITRATE 100 MCG/2 ML VL ONE (12:32)
[2019-12-11] MEDS ORDERED: MIDAZOLAM HCL 1MG/1ML-2 ML VIAL ONE (12:32)
--- NOTE | 2019-12-11 12:35 | NUR ---
OR TEAM AT BEDSIDE TO TAKE PATIENT TO PROCEDURE PATIENT CONNECTED TO PORTABLE PANEL MACHINE SETTER AND PORTABLE OXYGEN WITH OR RNS AND RESPIRATORY THERAPIST
--- NOTE | 2019-12-11 13:35 | NUR ---
OR TEAM BROUGHT PATIENT BACK FOR OR 8 SHILY TRACHEOSTOMY PATIENT CONNECTED TO BEDSIDE MONITOR.
[2019-12-11] MEDS: EPINEPHrine HCL 250 ML IV SCH (14:34)
--- NOTE | 2019-12-11 14:50 | NUR ---
DR Margo HUMPHREYS AT BEDSIDE NEW ORDERS RECEIVED
[2019-12-11] MEDS: MIDAZOLAM DRIP 50 mg/50mL 50 ML IV SCH (15:30)
--- NOTE | 2019-12-11 17:50 | NUR ---
DR GRIDER AT BEDSIDE DISCUSSED PLAN OF CARE NEW ORDERS RECEIVED
[2019-12-11] MEDS: NOREPINEPHRINE 8 MG/250ML KIT 250 ML IV SCH (18:34)
--- NOTE | 2019-12-11 19:10 | NUR ---
OPENING NOTES LAYING ON BED, ON VENT VIA TRACH, SEDATION WITH PROPOFOL AND FENTANYL GOING ON AND TPN, RIGHT SIDED THORACOSTOMY TUBE DRAINING TO A PINK-TINGED OUTPUT, NGT AND FC IN PLACE, CHUCKLES ON RIGHT WRIST AND BOTH LEGS. 2 GUARDS AT BEDSIDE. WILL CONTINUE CARE.
[2019-12-11] MEDS ORDERED: DOPamine 1600MCG/ML D5W 0 ML IV ONE (19:36)
[2019-12-11] MEDS: VANCOMYCIN 1GM/250ML 250 ML IV SCH (19:43)
[2019-12-11] MEDS: TPN PER PHARMACY IV NR ×9 (19:49)
[2019-12-11] MEDS: PIPERACILLIN-TAZOB 3.375GM 100 ML IV SCH (22:16)
[2019-12-12] VITALS (103 sets, daily range): BP systolic 87–179; BP diastolic 63–117
[2019-12-12] MEDS: ACCU-CHEK COMFORT CURVE STRIP VI SCH ×5 (00:17→23:41)
[2019-12-12] MEDS: InsuLIN REG 1unit/0.01ml Soln (100units/ml) SC SCH ×5 (00:24→23:41)
[2019-12-12] MEDS: VASOPRESSIN 50 UNITS in D5W 5% 247.5 ML IV SCH ×2 (01:30→23:42)
[2019-12-12] MEDS: PHENYLEPHRINE IV 250 ML IV SCH ×3 (01:59→17:45)
--- NOTE | 2019-12-12 02:00 | NUR ---
OFF PROPOFOL, SLIGHTLY AWAKE, OPENS EYES SPONTANEOUSLY
[2019-12-12] MEDS: ACETYLCYSTEINE 10 %(100MG/ML) SOL 4ML IN SCH ×6 (02:21→22:13)
[2019-12-12] MEDS: IPRATROPIUM BROM 0.5 MG/2.5ML INH SOL NEB SCH ×6 (02:21→22:13)
[2019-12-12] MEDS: ALBUTEROL SULF 2.5 MG/0.5ML(0.5%) NEB SOLN HHN SCH ×6 (02:21→22:13)
[2019-12-12] MEDS: VANCOMYCIN 1GM/250ML 250 ML IV SCH ×3 (03:00→23:42)
--- NOTE | 2019-12-12 03:00 | NUR ---
TEMP 100.4, COOLING MEASURES DONE
[2019-12-12 03:47] LABS: Hemoglobin 7.6 g/dL (13.5-17.5); Mean Corpuscular Volume 85.3 fL (80.0-100.0)
[2019-12-12 03:50] LABS: Mean Corpuscular Hemoglobin 28.2 pg (28.0-32.0); Platelet Count (auto) 266 10^3/uL (140-450); Red Cell Distribution Width 16.4 % (11.8-14.3); White Blood Cell 12.4 10^3/uL (4.4-10.8)
[2019-12-12] MEDS: PIPERACILLIN-TAZOB 3.375GM 100 ML IV SCH ×3 (04:00→20:00)
[2019-12-12 04:01] LABS: Albumin 2.1 g/dL (3.4-5.0); Calcium 7.3 mg/dL (8.5-10.1); Magnesium 1.8 mg/dL (1.6-2.6); Potassium 4.2 mmol/L (3.5-5.1)
[2019-12-12 04:04] LABS: Basophils % (manual) 0 (0.0-2.0); Blast Cells 0; Metamyelocytes % 0; Myelocytes % 0; Promyelocytes % 0; Reactive Lymphocytes 0
[2019-12-12 04:05] LABS: Bilirubin, Total 2.7 mg/dL (0.2-1.0); Phosphorus 2.9 mg/dL (2.5-4.90); Total Protein 6.7 g/dL (6.4-8.2)
--- NOTE | 2019-12-12 04:30 | NUR ---
MORNING CARE DONE, PARTIAL LINENS CHANGED, REPOSITIONED FOR COMFORT. ORAL CARE DONE.
[2019-12-12 04:57] LABS: Band Neutrophils % (manual) 4; Eosinophils % (manual) 3 (0-7); Lymphocytes % (manual) 13 (10.0-50.0); Monocytes % (manual) 2 (0-12)
[2019-12-12] MEDS: METOCLOPRAMIDE HCL 5MG/ml INJ 2ml VIAL IV SCH ×3 (05:43→21:28)
--- NOTE | 2019-12-12 06:13 | NUR ---
LATEST TEMP 99.5
--- NOTE | 2019-12-12 07:55 | NUR ---
OPENING Report received from Sagrario RODRIGUEZ. Care initiated and initial assessment complete.
[2019-12-12] MEDS: AMIODARONE HCL 200 MG TAB PO SCH ×2 (09:33→21:29)
[2019-12-12] MEDS: PANTOPRAZOLE 40 MG/10 ML VIAL INJ IV SCH (09:33)
[2019-12-12] MEDS: ALBUMIN 25% 100 ML IV SCH (09:33)
[2019-12-12] MEDS: DIGOXIN (250MCG/ML) 2 ML AMPULE IV SCH (09:34)
[2019-12-12] MEDS: INSULIN LANTUS (GLARGINE) 1 /0.01ml (100units/ml) SC SCH ×2 (09:36→21:30)
--- NOTE | 2019-12-12 10:30 | NUR ---
PARTIAL LINEN CHANGE Patient tolerated well.
--- NOTE | 2019-12-12 11:15 | NUR ---
BEDSIDE Dr. Scales bedside. New orders received and verified.
--- NOTE | 2019-12-12 11:45 | NUR ---
PLACED PT ON CA, TRACH COLLAR ON 8LPM ON 30% FIO2 VITALS: SPO2 95%, HR 121,, RR 38, BP 164/82. RN DOMINGO MADE AWARE. WILL HAVE PT ON TRACH COLLAR DELIA. WILL CONTINUE TO MONITOR PT.
[2019-12-12] MEDS: ONDANSETRON HCL 4 MG/2 ML VIAL IV PRN (11:58)
--- NOTE | 2019-12-12 12:00 | NUR ---
ART LINE DC'd
--- NOTE | 2019-12-12 12:36 | NUR ---
PT PLACED BACK ON VENTILATOR DUE TO INCREASED WOB. MICHAEL LANE MADE AWARE.
--- NOTE | 2019-12-12 13:30 | NUR ---
BEDSIDE Dr. Miller bedside.
[2019-12-12] MEDS: EPINEPHrine HCL 250 ML IV SCH (14:34)
[2019-12-12] MEDS: PROPOFOL 100 ML IV SCH (14:36)
[2019-12-12] MEDS: MIDAZOLAM DRIP 50 mg/50mL 50 ML IV SCH (14:36)
--- NOTE | 2019-12-12 15:09 | NUR ---
PICC line placement Patient/Patient significant other educated on need for PICC line placement. All risks and benefits explained and all questions and concerns addressed prior to procedure. Noted past medical history and allergies with no contraindications. INR and Plt counts within acceptable range. 5 fr PICC line inserted via right basilic vein using [employer]'s [employer] US and Tip Location System. Sterile technique with maximum barrier precautions utilized. Blood return obtained from each of the three lumens and each flushed easily with NS using proper technique. PICC secured with Stat-lock; biodisc and occlusive dressing applied. Stat portable chest x-ray obtained for PICC tip placement. *Baseline Arm Circumference 29cm. Internal length 44cm. External length 0cm. PICC lot #[id number].
[2019-12-12] MEDS ORDERED: LIDOCAINE 1% (LOCAL ANESTH.) PF 5ml SDV ID ONE (15:15)
--- NOTE | 2019-12-12 16:19 | NUR ---
Okay to use PICC line Xray completed. Okay to use PICC line. Radha RODRIGUEZ notified.
--- NOTE | 2019-12-12 16:24 | NUR ---
Nutrition Follow-up Wt.: 99.8 kg Pt is awake, extubated, with guards by bedside and RT attending pt when rounded this morning. Currently NPO with TPN support running @ 71 ml/hr providing 1550 kcal, 0 gms protein and 1190 NPCs. Pt with inadequate energy intake from PN support aeb 75% to 86% of est caloric needs. Protein intake from PN support is adequate aeb 100% to 125% protein needs. Will continue to monitor NPO status, skin status, pertinent labs and weight trends. Will f/u in 2 to 3 days. Est. energy needs: 4301-2210 kcals (20-23 kcal/kgBW). Est. protein needs: 72-90 gms/day (0.8-1.0 gm/kgBW). Labs: Glucose 176 H, Ca 7.3 L, total bilirubin 2.7 H, alkaline phosphatase 382 H, TP WNL, Albumin 2.1 L. Skin: Irwin scale 13, mod risk, Please refer to wound assessment report for full details PES: 1) Altered nutrition related lab values r/t current medical condition aeb hyponatremia, elevated RFTs, hyperglycemia, hypocalcemia, elev Bili, severe hypoalbuminemia Recommendations: 1) Continue to closely monitor pt NPO status. 2) Advance to EN support or Oral diet when appropriate. 3) If albumin continues trending down, consider Prostat 1 pkt BID. 4) Continue current plan of care.
--- NOTE | 2019-12-12 16:53 | NUR ---
IJ TLC DC'd DC'd with sterile technique, catheter fully intact. Pressure dressing applied to site. Patient tolerated procedure well.
--- NOTE | 2019-12-12 16:57 | NUR ---
PER DR. GRIDER ROUTINE MORNING ABG ONLY IF ORDERED.
[2019-12-12] MEDS: NOREPINEPHRINE 8 MG/250ML KIT 250 ML IV SCH (17:45)
--- NOTE | 2019-12-12 18:31 | NUR ---
Respiratory note: RECEIVED PT ON VENT V18, VENT TO TRACH PT. VENT CONNECTED TO RED OUTLET AND O2 SOURCE. ALARMS ARE SET AND AUDIBLE. AMBU BAG AND MASK AT BEDSIDE. BS ARE COURSE T/O, SXD VIA TRACH FOR MODERATE THICK SILVER/PALE YELLOW SECRETIONS.MED NEB TX GIVEN INLINE VIA AEROGEN WITHOUT ADVERSE REACTION NOTED. PT RIGHT HAND HANDCUFFED TO BED, WITH TWO GUARDS AT BEDSIDE.PTS CURRENT TEMP IS 100.8F. RT NAME AND PAGER ASSIGNMENT WRITTEN ON PTS ROOM BOARD WILL CONTINUE TO MONITOR Q2H AND NEEDED.
--- NOTE | 2019-12-12 18:48 | NUR ---
BEDSIDE Dr. Amparo Stapleton bedside. 2nd MD to sign for bronch consent scheduled .
--- NOTE | 2019-12-12 19:45 | NUR ---
Opening Shift Note: Patient awake and alert. Trach warren (8): vent FiO2 30%; rate 12; PEEP 8; Pressure 30. Follows commands/slight movement of all extremities. ST 100s/110s; BPs 120s SBP. NGT right nare to LIS: dark green output. CT s/p thoracotomy with Dr. Coleman on 12/05/19. Goldstein inserted on 11/18/19 for strict I/O. Skin: skin erosion to coccyx area; scrotal swelling. Right triple lumen PICC inserted on 12/12/19: running TPN at 71.906 ml/hr. Prisoner status: two guards at bedside; shackles on right wrist and bilateral ankles. Will continue to round/reposition/perform oral care prn.
[2019-12-12] MEDS: TPN PER PHARMACY IV NR ×9 (19:51)
[2019-12-12] MEDS ORDERED: TPN PER PHARMACY IV NR ×11 (20:00)
--- NOTE | 2019-12-12 20:23 | NUR ---
Respiratory note: AT BEDSIDE FOR ROUTINE VENT CHECK. SXD VIA TRACH FOR MODERATE THICK PALE YELLOW. SXD CATHETER CHANGED OUT AT THIS TIME. PTS CURRENT TEMP IS 100.8F. RN TIMOTHY Marquez AT BEDSIDE
[2019-12-12] MEDS: SODIUM CHLOR 0.9% PF (SALINE LOCK) 10ML VIAL/SYR IV SCH (21:29)
--- NOTE | 2019-12-12 22:13 | NUR ---
Respiratory note: AT BEDSIDE FOR ROUTINE VENT CHECK. BS ARE FINE COURSE. SXD VIA TRACH FOR MODERATE THICK PALE YELLOW. MED NEB TX GIVEN VIA AEROGEN. NO ADVERSE REACTION NOTED. MICHAEL Marquez AT BEDSIDE.
[2019-12-12] MEDS: ACETAMINOPHEN 325 MG TAB PO PRN (23:55)
[2019-12-13] VITALS (53 sets, daily range): BP systolic 114–138; BP diastolic 63–82
--- NOTE | 2019-12-13 00:18 | NUR ---
Respiratory note: AT BEDSIDE FOR ROUTINE VENT CHECK. BS ARE FINE COURSE. CURRENT TEMP IS 100.2F. WILL CONTINUE TO MONITOR.
--- NOTE | 2019-12-13 02:29 | NUR ---
Respiratory note: AT BEDSIDE FOR ROUTINE VENT CHECK. SXD VIA TRACH FOR MODERATE THICK PALE YELLOW. MED NEB TX GIVEN VIA AEROGEN. NO ADVERSE REACTION NOTED. TRACH CARE DONE AT THIS TIME.
[2019-12-13] MEDS: ALBUTEROL SULF 2.5 MG/0.5ML(0.5%) NEB SOLN HHN SCH ×4 (02:38→19:32)
[2019-12-13] MEDS: IPRATROPIUM BROM 0.5 MG/2.5ML INH SOL NEB SCH ×5 (02:38→19:32)
[2019-12-13] MEDS: ACETYLCYSTEINE 10 %(100MG/ML) SOL 4ML IN SCH ×5 (02:38→19:32)
[2019-12-13] MEDS: PHENYLEPHRINE IV 250 ML IV SCH ×3 (02:59→19:30)
[2019-12-13] MEDS: PIPERACILLIN-TAZOB 3.375GM 100 ML IV SCH ×3 (04:00→19:33)
--- NOTE | 2019-12-13 04:15 | NUR ---
Respiratory note: END OF SHIFT PABLO CHECK. CURRENT TEMP IS 99.5F. WILL HAVE DAY SHIFT CONTINUE POC.
--- NOTE | 2019-12-13 04:30 | NUR ---
Patient bathe/linen change Patient given complete CHG bath. Skin integrity assessed for any changes. Optifoam changed on sacrum. Linens and gown changed. Patient repositioned for comfort.
[2019-12-13 05:22] LABS: Albumin 2.2 g/dL (3.4-5.0); Calcium 7.4 mg/dL (8.5-10.1); Potassium 3.5 mmol/L (3.5-5.1)
[2019-12-13 05:26] LABS: BUN/Creatinine Ratio 25.7; Bilirubin, Total 2.9 mg/dL (0.2-1.0); Phosphorus 2.5 mg/dL (2.5-4.90); Total Protein 6.6 g/dL (6.4-8.2)
[2019-12-13] MEDS: METOCLOPRAMIDE HCL 5MG/ml INJ 2ml VIAL IV SCH ×3 (06:12→21:53)
[2019-12-13] MEDS: InsuLIN REG 1unit/0.01ml Soln (100units/ml) SC SCH ×3 (06:13→18:30)
[2019-12-13] MEDS: ACCU-CHEK COMFORT CURVE STRIP VI SCH ×3 (06:14→18:25)
--- NOTE | 2019-12-13 08:00 | NUR ---
COOLING MEASURES INITIATED
[2019-12-13] MEDS: ALBUMIN 25% 100 ML IV SCH (09:19)
[2019-12-13] MEDS: PANTOPRAZOLE 40 MG/10 ML VIAL INJ IV SCH (09:19)
[2019-12-13] MEDS: VANCOMYCIN 1GM/250ML 250 ML IV SCH ×2 (09:19→17:23)
[2019-12-13] MEDS: INSULIN LANTUS (GLARGINE) 1 /0.01ml (100units/ml) SC SCH ×2 (09:20→21:54)
[2019-12-13] MEDS: SODIUM CHLOR 0.9% PF (SALINE LOCK) 10ML VIAL/SYR IV SCH ×2 (09:21→21:53)
[2019-12-13] MEDS: AMIODARONE HCL 200 MG TAB PO SCH ×2 (09:21→21:54)
[2019-12-13] MEDS: DIGOXIN (250MCG/ML) 2 ML AMPULE IV SCH (09:51)
[2019-12-13] MEDS: ACETAMINOPHEN 325 MG TAB PO PRN (12:07)
--- NOTE | 2019-12-13 13:00 | NUR ---
DR. MATSON AT BEDSIDE ORDERS RECEIVED
[2019-12-13] MEDS: EPINEPHrine HCL 250 ML IV SCH (14:34)
[2019-12-13] MEDS: MIDAZOLAM DRIP 50 mg/50mL 50 ML IV SCH (15:42)
[2019-12-13] MEDS: PROPOFOL 100 ML IV SCH (16:36)
[2019-12-13] MEDS: NOREPINEPHRINE 8 MG/250ML KIT 250 ML IV SCH (19:00)
--- NOTE | 2019-12-13 19:05 | NUR ---
RT NOTE RECEIVED PT TRACHED AND ON VENT V18 ON HEATED WIRE CIRCUIT. VENT IS PLUGGED TO RED OUTLET. ALARMS ARE ON AND AUDIBLE TO NURSING. AMBU BAG AT BEDSIDE AND CONNECTED TO O2 SOURCE. WATER LEVEL IS ADEQUATE AT THIS TIME. 8.0 SHILEY TRACH IS SECURED WITH TRACH TIES. TRACH STAY IN PLACE. BILATERAL BS ARE CTA. HHN TX GIVEN INLINE WITH AEROGEN WITH 2.5 MG ALBUTEROL, 0.5 MG ATROVENT AND 1 CC 10% MUCOMYST WITHOUT ADVERSE REACTION NOTED. PT WAS SUCTIONED FOR SCANT RETURN FROM TRACH AND MODERATE RETURN ORALLY. PT APPEARS COMFORTABLE AT THIS TIME. 2 GUARDS AT BEDSIDE. CONT ORDERED. CIRCUIT TEMP 32.4, POX 98%
--- NOTE | 2019-12-13 19:05 | NUR ---
RT NOTE RECEIVED PT TRACHED AND ON VENT V18 ON HEATED WIRE CIRCUIT. VENT IS PLUGGED TO RED OUTLET. ALARMS ARE ON AND AUDIBLE TO NURSING. AMBU BAG AT BEDSIDE AND CONNECTED TO O2 SOURCE. WATER LEVEL IS ADEQUATE AT THIS TIME. 8.0 SHILEY TRACH IS SECURED WITH TRACH TIES. TRACH STAY IN PLACE. SPARE TRACH AT BEDSIDE. BILATERAL BS ARE CTA. HHN TX GIVEN INLINE WITH AEROGEN WITH 2.5 MG ALBUTEROL, 0.5 MG ATROVENT AND 1 CC 10% MUCOMYST WITHOUT ADVERSE REACTION NOTED. PT WAS SUCTIONED FOR SCANT RETURN FROM TRACH AND MODERATE RETURN ORALLY. PT APPEARS COMFORTABLE AT THIS TIME. 2 GUARDS AT BEDSIDE. CONT ORDERED. CIRCUIT TEMP 32.4, POX 98% Addendum: 12/13/19 at 1956 by Nancy Blake RT Amended: Links added.
--- NOTE | 2019-12-13 19:05 | NUR ---
RT NOTE RECEIVED PT TRACHED AND ON VENT V18 ON HEATED WIRE CIRCUIT. VENT IS PLUGGED TO RED OUTLET. ALARMS ARE ON AND AUDIBLE TO NURSING. AMBU BAG AT BEDSIDE AND CONNECTED TO O2 SOURCE. WATER LEVEL IS ADEQUATE AT THIS TIME. 8.0 SHILEY TRACH IS SECURED WITH TRACH TIES. BILATERAL BS ARE CTA. HHN TX GIVEN INLINE WITH AEROGEN WITH 2.5 MG ALBUTEROL, 0.5 MG ATROVENT AND 1 CC 10% MUCOMYST WITHOUT ADVERSE REACTION NOTED. PT WAS SUCTIONED FOR SCANT RETURN FROM TRACH AND MODERATE RETURN ORALLY. PT APPEARS COMFORTABLE AT THIS TIME. 2 GUARDS AT BEDSIDE. CONT ORDERED. CIRCUIT TEMP 32.4, POX 98%
--- NOTE | 2019-12-13 19:20 | NUR ---
CLOSING NOTE SHIFT REPORT GIVE BACK AND CARE ENDORSED TO TIMOTHY RODRIGUEZ
--- NOTE | 2019-12-13 19:45 | NUR ---
Opening Shift Note: Patient awake and alert. Trach warren (8): vent FiO2 30%; rate 12; PEEP 8; Pressure 30. Follows commands/slight movement of all extremities. ST 100s/110s; BPs 110s-120s SBP. NGT right nare to LIS: dark green output. CT s/p thoracotomy with Dr. Coleman on 12/05/19. Goldstein inserted on 11/18/19 for strict I/O. Skin: skin erosion to coccyx area; scrotal swelling. Right triple lumen PICC inserted on 12/12/19: running TPN at 72 ml/hr. Prisoner status: two guards at bedside; shackles on right wrist and bilateral ankles. Will continue to round/reposition/perform oral care prn. Use of white board to communicate with patient.
[2019-12-13] MEDS ORDERED: TPN PER PHARMACY IV NR ×10 (20:00)
--- NOTE | 2019-12-13 20:10 | NUR ---
RT NOTE ROUTINE VENT CHECK DONE. PT TRACHED AND ON VENT V18 ON HEATED WIRE CIRCUIT. VENT IS PLUGGED TO RED OUTLET. ALARMS ARE ON AND AUDIBLE TO NURSING. AMBU BAG AT BEDSIDE AND CONNECTED TO O2 SOURCE. WATER LEVEL IS ADEQUATE AT THIS TIME. 8.0 SHILEY TRACH IS SECURED WITH TRACH TIES. TRACH STAY IN PLACE. SPARE TRACH AT BEDSIDE. PT APPEARS COMFORTABLE AT THIS TIME. 2 GUARDS AT BEDSIDE. CONT ORDERED. etCO2 27, CIRCUIT TEMP 35.2, POX 99% Addendum: 12/13/19 at 2033 by Nancy Blake RT Amended: Links added.
--- NOTE | 2019-12-13 21:54 | NUR ---
RT NOTE ROUTINE VENT CHECK DONE. PT TRACHED AND ON VENT V18 ON HEATED WIRE CIRCUIT. VENT IS PLUGGED TO RED OUTLET. ALARMS ARE ON AND AUDIBLE TO NURSING. AMBU BAG AT BEDSIDE AND CONNECTED TO O2 SOURCE. WATER LEVEL IS ADEQUATE AT THIS TIME. 8.0 SHILEY TRACH IS SECURED WITH TRACH TIES. TRACH STAY IN PLACE. SPARE TRACH AT BEDSIDE. BS ARE CTA. HHN GIVEN INLINE WITH 2.5 MG ALBUTEROL, 0.5 MG ATROVENT AND 1 CC 10% MUCOMYST VIA AEROGEN WITHOUT ADVERSE REACTION NOTED. PT WAS SUCTIONED FOR SCANT RETURN. PT APPEARS COMFORTABLE AT THIS TIME. 2 GUARDS AT BEDSIDE. CONT ORDERED. etCO2 28, CIRCUIT TEMP 34.8, POX 100% Addendum: 12/13/19 at 2308 by Nancy Blake RT Amended: Links added.
[2019-12-14] VITALS (54 sets, daily range): BP systolic 105–137; BP diastolic 64–82
[2019-12-14] MEDS: VANCOMYCIN 1GM/250ML 250 ML IV SCH ×3 (00:07→18:44)
[2019-12-14] MEDS: InsuLIN REG 1unit/0.01ml Soln (100units/ml) SC SCH ×4 (00:07→17:48)
[2019-12-14] MEDS: ACCU-CHEK COMFORT CURVE STRIP VI SCH ×4 (00:07→17:46)
--- NOTE | 2019-12-14 00:07 | NUR ---
RT NOTE ROUTINE VENT CHECK DONE. PT TRACHED AND ON VENT V18 ON HEATED WIRE CIRCUIT. VENT IS PLUGGED TO RED OUTLET. ALARMS ARE ON AND AUDIBLE TO NURSING. AMBU BAG AT BEDSIDE AND CONNECTED TO O2 SOURCE. WATER LEVEL IS ADEQUATE AT THIS TIME. 8.0 SHILEY TRACH IS SECURED WITH TRACH TIES. TRACH STAY IN PLACE. SPARE TRACH AT BEDSIDE. PT APPEARS COMFORTABLE AT THIS TIME. 2 GUARDS AT BEDSIDE. CONT ORDERED. etCO2 22, CIRCUIT TEMP 35.2, POX 99% Addendum: 12/14/19 at 0028 by Nancy Blake RT Amended: Links added.
[2019-12-14] MEDS: VASOPRESSIN 50 UNITS in D5W 5% 247.5 ML IV SCH (00:18)
[2019-12-14] MEDS: PHENYLEPHRINE IV 250 ML IV SCH ×3 (00:18→20:08)
[2019-12-14] MEDS: IPRATROPIUM BROM 0.5 MG/2.5ML INH SOL NEB SCH ×7 (00:22→21:44)
[2019-12-14] MEDS: ACETYLCYSTEINE 10 %(100MG/ML) SOL 4ML IN SCH ×7 (00:22→21:44)
[2019-12-14] MEDS: ALBUTEROL SULF 2.5 MG/0.5ML(0.5%) NEB SOLN HHN SCH ×7 (00:22→21:44)
--- NOTE | 2019-12-14 02:08 | NUR ---
RT NOTE ROUTINE VENT CHECK DONE. PT TRACHED AND ON VENT V18 ON HEATED WIRE CIRCUIT. VENT IS PLUGGED TO RED OUTLET. ALARMS ARE ON AND AUDIBLE TO NURSING. AMBU BAG AT BEDSIDE AND CONNECTED TO O2 SOURCE. WATER LEVEL IS ADEQUATE AT THIS TIME. 8.0 SHILEY TRACH IS SECURED WITH TRACH TIES. TRACH STAY IN PLACE. SPARE TRACH AT BEDSIDE. BS ARE CTA. PT WAS SUCTIONED FOR SCANT RETURN. HHN GIVEN INLINE WITH 2.5 MG ALBUTEROL, 0.5 MG ATROVENT AND 1CC MUCOMYST VIA AEROGEN WITHOUT ADVERSE REACTION. etCO2 LINE CHANGED FOR BETTER WAVEFORM.TRACH CARE DONE AND INLINE SUCTION CHANGED WITHOUT INCIDENT. PT APPEARS COMFORTABLE AT THIS TIME. 2 GUARDS AT BEDSIDE. CONT ORDERED. etCO2 27, CIRCUIT TEMP 35.0, POX 99% Addendum: 12/14/19 at 0243 by Nancy Blake RT Amended: Links added.
[2019-12-14] MEDS: ACETAMINOPHEN 325 MG TAB PO PRN (04:00)
[2019-12-14] MEDS: PIPERACILLIN-TAZOB 3.375GM 100 ML IV SCH ×3 (04:00→20:07)
--- NOTE | 2019-12-14 04:00 | NUR ---
Patient bathe/linen change Patient given complete CHG bed bath. Skin integrity assessed for any changes. Linens and gown changed. New optifoam applied to patient's sacrum. Patient repositioned for comfort.
--- NOTE | 2019-12-14 04:41 | NUR ---
RT NOTE ROUTINE VENT CHECK DONE. PT TRACHED AND ON VENT V18 ON HEATED WIRE CIRCUIT. VENT IS PLUGGED TO RED OUTLET. ALARMS ARE ON AND AUDIBLE TO NURSING. AMBU BAG AT BEDSIDE AND CONNECTED TO O2 SOURCE. WATER LEVEL IS ADEQUATE AT THIS TIME. 8.0 SHILEY TRACH IS SECURED WITH TRACH TIES. TRACH STAY IN PLACE. SPARE TRACH AT BEDSIDE. BS ARE CTA. PT APPEARS COMFORTABLE T THIS TIME. 2 GUARDS AT BEDSIDE. CONT ORDERED. etCO2 27, CIRCUIT TEMP 35.2, POX 100% Addendum: 12/14/19 at 0454 by Nancy Blake RT Amended: Links added.
[2019-12-14 05:58] LABS: White Blood Cell 8.5 10^3/uL (4.4-10.8)
[2019-12-14 06:02] LABS: Albumin 2.3 g/dL (3.4-5.0); Calcium 7.4 mg/dL (8.5-10.1); Hematocrit 20.7 % (41.0-53.0); Magnesium 2.2 mg/dL (1.6-2.6); Mean Corpuscular Hemoglobin 28.7 pg (28.0-32.0); Mean Corpuscular Hgb Conc. 33.8 g/dL (32.0-36.0); Mean Corpuscular Volume 85.2 fL (80.0-100.0); Platelet Count (auto) 348 10^3/uL (140-450); Potassium 3.5 mmol/L (3.5-5.1); Red Blood Cells 2.43 10^6/uL (4.5-5.90); Red Cell Distribution Width 17.4 % (11.8-14.3)
[2019-12-14 06:04] LABS: Basophils % (manual) 0 (0.0-2.0); Blast Cells 0; Metamyelocytes % 0; Promyelocytes % 0; Reactive Lymphocytes 0
[2019-12-14 06:06] LABS: BUN/Creatinine Ratio 27.4; Bilirubin, Total 2.4 mg/dL (0.2-1.0); Phosphorus 2.9 mg/dL (2.5-4.90); Pre Albumin 9.7 mg/dL (20.0-40.0); Total Protein 6.7 g/dL (6.4-8.2)
[2019-12-14] MEDS: METOCLOPRAMIDE HCL 5MG/ml INJ 2ml VIAL IV SCH ×3 (06:15→22:00)
--- NOTE | 2019-12-14 06:37 | NUR ---
Page sent to Dr. Miller: Patient's Hgb is 7.0. Patient previously received 1 unit PRBCs on 12/05/19 for Hgb 7.0. Current bleeding only from chest tube (40 ml for shift). Will await return page for possible orders.
--- NOTE | 2019-12-14 06:40 | NUR ---
Page return: Per Dr. Miller, repeat Hbg level at [address]. [address] telephone order.
[2019-12-14 06:59] LABS: Band Neutrophils % (manual) 1; Eosinophils % (manual) 3 (0-7); Lymphocytes % (manual) 10 (10.0-50.0); Monocytes % (manual) 3 (0-12); Myelocytes % 2
--- NOTE | 2019-12-14 08:30 | NUR ---
PT. PLACED ON 30% COOL AEROSOL TRACH MASK, PER DR. GRIDER'S ORDERS. PT. IS AWAKE AND ALERT. HR=98,RR=36,SP02=98%,RE=641/77, WILL CONTINUE TO MONITOR RESP. STATUS.
--- NOTE | 2019-12-14 09:19 | NUR ---
DR. Margo HUMPHREYS AT BEDSIDE
[2019-12-14] MEDS: ALBUMIN 25% 100 ML IV SCH (09:56)
[2019-12-14] MEDS: PANTOPRAZOLE 40 MG/10 ML VIAL INJ IV SCH (09:56)
[2019-12-14] MEDS: AMIODARONE HCL 200 MG TAB PO SCH ×2 (09:57→22:00)
[2019-12-14] MEDS: DIGOXIN (250MCG/ML) 2 ML AMPULE IV SCH (09:57)
[2019-12-14] MEDS: SODIUM CHLOR 0.9% PF (SALINE LOCK) 10ML VIAL/SYR IV SCH ×2 (09:57→22:00)
[2019-12-14] MEDS: INSULIN LANTUS (GLARGINE) 1 /0.01ml (100units/ml) SC SCH ×2 (09:58→22:00)
[2019-12-14] MEDS ORDERED: SODIUM CHLORIDE LOCK 10 ML ONE (10:23)
[2019-12-14] MEDS ORDERED: LIDOCAINE 2%HCL (LOCAL ANESTH.) INJ 20ML MDV ONE (10:23)
[2019-12-14] MEDS ORDERED: LIDOCAINE HCL 2% TOP JELLY 5ML TOP ONE (10:24)
[2019-12-14] MEDS ORDERED: MIDAZOLAM HCL 5 MG/ML-1ML VIAL ONE (10:24)
[2019-12-14] MEDS ORDERED: EPINEPHrine HCL 1 MG/1 ML AMP ONE (10:24)
[2019-12-14] MEDS ORDERED: GLYCOPYRROLATE 0.2 MG/ML 1ML VIAL ONE (10:24)
[2019-12-14] MEDS ORDERED: fentaNYL CITRATE 100 MCG/2 ML VL ONE (10:25)
[2019-12-14 11:46] LABS: Hematocrit 19.7 % (41.0-53.0)
[2019-12-14 11:48] LABS: Hemoglobin 6.7 g/dL (13.5-17.5)
--- NOTE | 2019-12-14 11:51 | NUR ---
OR TEAM AT BEDSIDE
--- NOTE | 2019-12-14 12:06 | NUR ---
HGB 6.7. DR. CASTELLON UPDATED ON HGB LEVELS, ORDERS RECEIVED
--- NOTE | 2019-12-14 12:20 | NUR ---
ELEVATED TEMPERATURE COOLING MEASURES APPLIED
--- NOTE | 2019-12-14 12:21 | NUR ---
BRONCHOSCOPY COMPLETE PATIENT RESTING COMFORTABLY. NO S/S OF DISTRESS
--- NOTE | 2019-12-14 13:22 | NUR ---
Nutrition Follow-up Wt.: 99.8 kg Pt remains NPO with TPN support running @72 ml/hr providing 1650 kcal, 90 gms protein and 1290 NPCs. Pt with adequate energy and protein intake from PN support aeb 80% to 92% of estimated caloric needs and 83% to 100% of estimated protein needs. Noted new TPN order for tonight @75 ml/hr. Will continue to monitor NPO status, skin status, pertinent labs and weight trends. Will f/u in 2 to 3 days. Est. energy needs: 5830-8404 kcals (20-23 kcal/kgBW). Est. protein needs: 90-108 gms/day (1.0-1.2 gm/kgBW). - Increased protein needs d/t low prealbumin value. Labs /: Na 135 L, BUN 20 H, Glucose 217 H, POC 206 H, Ca 7.4 L, Albumin 2.3 L, Prealbumin 9.7 L Skin: Irwin scale 11, high risk, MASD to posterior sacrum. PES: 1) Altered nutrition related lab values r/t current medical condition aeb hyponatremia, elevated RFTs, hyperglycemia, hypocalcemia, elev Bili, severe hypoalbuminemia Recommendations: 1) Continue to closely monitor pt NPO status. 2) Advance to EN support or Oral diet when appropriate. 3) If albumin continues trending down, consider Prostat 1 pkt BID. 4) Continue current plan of care.
--- NOTE | 2019-12-14 14:26 | NUR ---
COMPLETE LINEN CHANGE PERFORMED AT THIS TIME
[2019-12-14] MEDS: EPINEPHrine HCL 250 ML IV SCH (14:34)
--- NOTE | 2019-12-14 14:40 | NUR ---
BLOOD TRANSFUSION STARTED
--- NOTE | 2019-12-14 14:55 | NUR ---
NO ADVERSE REACTION NOTED FROM BLOOD TRANSFUSION.
[2019-12-14] MEDS: MIDAZOLAM DRIP 50 mg/50mL 50 ML IV SCH (15:42)
[2019-12-14] MEDS ORDERED: VANCOMYCIN PER PHARMACY 0 MG IV SCH (16:00)
[2019-12-14] MEDS: PROPOFOL 100 ML IV SCH (16:36)
--- NOTE | 2019-12-14 17:24 | NUR ---
BLOOD TRANSFUSION COMPLETE NO REACTION NOTED
[2019-12-14] MEDS: NOREPINEPHRINE 8 MG/250ML KIT 250 ML IV SCH (19:00)
[2019-12-14] MEDS ORDERED: TPN PER PHARMACY IV NR ×11 (20:00)
--- NOTE | 2019-12-14 20:00 | NUR ---
Opening Shift Note: Patient awake and alert. Trach warren (8): vent FiO2 30%; rate 12; PEEP 8; Pressure 30. Follows commands/slight movement of all extremities. NSR/ST 90s/10s; BPs 110s-130s SBP. NGT right nare to LIS: light green output. CT s/p thoracotomy with Dr. Coleman on 12/05/19. Goldstein inserted on 11/18/19 for strict I/O. Skin: skin erosion to coccyx area; scrotal swelling. Right triple lumen PICC inserted on 12/12/19: running TPN at 75 ml/hr. Prisoner status: two guards at bedside; shackles on right wrist and bilateral ankles. Will continue to round/reposition/perform oral care prn. Use of white board to communicate with patient.
[2019-12-14 21:08] LABS: Hemoglobin 7.6 g/dL (13.5-17.5); White Blood Cell 8.8 10^3/uL (4.4-10.8)
[2019-12-14 21:10] LABS: Hematocrit 22.1 % (41.0-53.0); Mean Corpuscular Hemoglobin 29.3 pg (28.0-32.0); Mean Corpuscular Hgb Conc. 34.4 g/dL (32.0-36.0); Mean Corpuscular Volume 85.2 fL (80.0-100.0); Platelet Count (auto) 350 10^3/uL (140-450); Red Blood Cells 2.59 10^6/uL (4.5-5.90); Red Cell Distribution Width 17.2 % (11.8-14.3)
[2019-12-14 21:15] LABS: Basophils % (manual) 0 (0.0-2.0); Blast Cells 0; Metamyelocytes % 0; Myelocytes % 0; Promyelocytes % 0; Reactive Lymphocytes 0
[2019-12-14 22:13] LABS: Band Neutrophils % (manual) 2; Eosinophils % (manual) 2 (0-7); Lymphocytes % (manual) 8 (10.0-50.0); Monocytes % (manual) 6 (0-12)
[2019-12-15] VITALS (36 sets, daily range): BP systolic 109–143; BP diastolic 72–85
[2019-12-15] MEDS: InsuLIN REG 1unit/0.01ml Soln (100units/ml) SC SCH ×4 (00:07→17:54)
[2019-12-15] MEDS: ACCU-CHEK COMFORT CURVE STRIP VI SCH ×4 (00:08→17:52)
[2019-12-15] MEDS: VASOPRESSIN 50 UNITS in D5W 5% 247.5 ML IV SCH ×2 (00:08→23:23)
[2019-12-15] MEDS: ALBUTEROL SULF 2.5 MG/0.5ML(0.5%) NEB SOLN HHN SCH ×6 (02:18→22:22)
[2019-12-15] MEDS: ACETYLCYSTEINE 10 %(100MG/ML) SOL 4ML IN SCH ×6 (02:18→22:22)
[2019-12-15] MEDS: IPRATROPIUM BROM 0.5 MG/2.5ML INH SOL NEB SCH ×6 (02:18→22:22)
[2019-12-15] MEDS: VANCOMYCIN 1GM/250ML 250 ML IV SCH ×3 (03:00→18:37)
[2019-12-15] MEDS: PIPERACILLIN-TAZOB 3.375GM 100 ML IV SCH ×3 (04:00→20:21)
[2019-12-15 04:14] LABS: Hemoglobin 7.5 g/dL (13.5-17.5); Mean Corpuscular Hemoglobin 28.6 pg (28.0-32.0); Mean Corpuscular Hgb Conc. 33.5 g/dL (32.0-36.0); Mean Corpuscular Volume 85.5 fL (80.0-100.0); Red Cell Distribution Width 17.4 % (11.8-14.3)
[2019-12-15 04:18] LABS: Hematocrit 22.5 % (41.0-53.0); Platelet Count (auto) 359 10^3/uL (140-450); Red Blood Cells 2.63 10^6/uL (4.5-5.90); White Blood Cell 8.5 10^3/uL (4.4-10.8)
[2019-12-15 04:32] LABS: Albumin 2.3 g/dL (3.4-5.0); Calcium 7.6 mg/dL (8.5-10.1); Magnesium 2.3 mg/dL (1.6-2.6); Potassium 3.6 mmol/L (3.5-5.1)
[2019-12-15 04:37] LABS: BUN/Creatinine Ratio 25.4; Bilirubin, Total 2.6 mg/dL (0.2-1.0); Phosphorus 2.8 mg/dL (2.5-4.90); Total Protein 6.6 g/dL (6.4-8.2)
[2019-12-15 04:53] LABS: Basophils % (manual) 0 (0.0-2.0); Blast Cells 0; Myelocytes % 0; Promyelocytes % 0; Reactive Lymphocytes 0
[2019-12-15] MEDS: PHENYLEPHRINE IV 250 ML IV SCH ×3 (04:59→21:39)
--- NOTE | 2019-12-15 05:00 | NUR ---
Patient bathe/linen change Patient given complete CHG bath. Skin integrity assessed for any changes. Optifoam changed on sacrum. Linens and gown changed. Patient repositioned for comfort.
[2019-12-15 06:03] LABS: Band Neutrophils % (manual) 4; Eosinophils % (manual) 3 (0-7); Lymphocytes % (manual) 16 (10.0-50.0); Metamyelocytes % 1; Monocytes % (manual) 3 (0-12)
[2019-12-15] MEDS: METOCLOPRAMIDE HCL 5MG/ml INJ 2ml VIAL IV SCH ×3 (06:21→22:05)
--- NOTE | 2019-12-15 09:04 | NUR ---
PHYSICAL THERAPY AT BEDSIDE
[2019-12-15] MEDS: INSULIN LANTUS (GLARGINE) 1 /0.01ml (100units/ml) SC SCH ×2 (09:31→22:09)
[2019-12-15] MEDS: PANTOPRAZOLE 40 MG/10 ML VIAL INJ IV SCH (09:38)
[2019-12-15] MEDS: DIGOXIN (250MCG/ML) 2 ML AMPULE IV SCH (09:39)
[2019-12-15] MEDS: SODIUM CHLOR 0.9% PF (SALINE LOCK) 10ML VIAL/SYR IV SCH ×2 (09:39→22:05)
[2019-12-15] MEDS: ALBUMIN 25% 100 ML IV SCH (09:39)
[2019-12-15] MEDS: AMIODARONE HCL 200 MG TAB PO SCH ×2 (09:40→22:06)
--- NOTE | 2019-12-15 12:20 | NUR ---
PATIENT PLACED ON TRACH COLLAR
--- NOTE | 2019-12-15 12:24 | NUR ---
DR. MAYO AT BEDSIDE
[2019-12-15] MEDS: EPINEPHrine HCL 250 ML IV SCH (14:34)
--- NOTE | 2019-12-15 15:12 | NUR ---
COMPLETE LINEN CHANGE PERFORMED AT THIS TIME
[2019-12-15] MEDS: MIDAZOLAM DRIP 50 mg/50mL 50 ML IV SCH (15:42)
[2019-12-15] MEDS: PROPOFOL 100 ML IV SCH (16:36)
--- NOTE | 2019-12-15 16:36 | NUR ---
PATIENT AGGRESSIVE CURING AT PRIMARY NURSE. PRIMARY RN SPEAKING WITH PATIENT TO CALM HER DOWN WITH MINIMAL UNDERSTANDING. DR. SHAIKH LIN Addendum: 12/15/19 at 1644 by Hadley Gomez RN WRONG PATIENT
--- NOTE | 2019-12-15 18:04 | NUR ---
SWALLOW EVALUATED. PATIENT IS ON TRACH AND RESPIRATORY THERAPIST PRESENT. PATIENT COUGHED ON TRIAL OF PUREE DIET TEXTURE. PATIENT REQUIRED SUCTIONING. UNSAFE FOR PO INTAKE. RECOMMEND NPO.
[2019-12-15] MEDS: NOREPINEPHRINE 8 MG/250ML KIT 250 ML IV SCH (19:00)
[2019-12-15] MEDS ORDERED: TPN PER PHARMACY IV NR ×11 (20:00)
[2019-12-16] VITALS (34 sets, daily range): BP systolic 108–137; BP diastolic 66–91
[2019-12-16] MEDS: ACCU-CHEK COMFORT CURVE STRIP VI SCH ×4 (00:15→17:56)
[2019-12-16] MEDS: InsuLIN REG 1unit/0.01ml Soln (100units/ml) SC SCH ×4 (00:15→17:59)
[2019-12-16] MEDS: ALBUTEROL SULF 2.5 MG/0.5ML(0.5%) NEB SOLN HHN SCH ×6 (02:23→21:45)
[2019-12-16] MEDS: IPRATROPIUM BROM 0.5 MG/2.5ML INH SOL NEB SCH ×6 (02:23→21:45)
[2019-12-16] MEDS: ACETYLCYSTEINE 10 %(100MG/ML) SOL 4ML IN SCH ×6 (02:23→21:45)
[2019-12-16] MEDS: VANCOMYCIN 1GM/250ML 250 ML IV SCH ×3 (03:06→18:35)
[2019-12-16] MEDS: PIPERACILLIN-TAZOB 3.375GM 100 ML IV SCH ×3 (03:54→20:10)
[2019-12-16] MEDS: PHENYLEPHRINE IV 250 ML IV SCH (03:55)
[2019-12-16 04:18] LABS: Basophils # (auto) 0 10 ^3/uL (0-0.2); Basophils % (auto) 0.4 % (0.0-2.0); Eosinophils # (auto) 0.4 10 ^3/uL (0-0.8); Eosinophils % (auto) 4.1 % (0.0-7.0); Hematocrit 22.8 % (41.0-53.0); Hemoglobin 7.7 g/dL (13.5-17.5); Lymphocytes # (auto) 1.6 10 ^3/uL (0.4-5.4); Lymphocytes % (auto) 15.1 % (10.0-50.0); Mean Corpuscular Hemoglobin 28.8 pg (28.0-32.0); Mean Corpuscular Hgb Conc. 33.6 g/dL (32.0-36.0); Mean Corpuscular Volume 85.7 fL (80.0-100.0); Monocytes # (auto) 0.5 10 ^3/uL (0-1.3); Monocytes % (auto) 4.5 % (0.0-12.0); Neutrophils # (auto) 7.8 10 ^3/uL (1.6-8.6); Neutrophils % (auto) 75.9 % (37.0-80.0); Nucleated Red Blood Cells % 0.1 %; Platelet Count (auto) 369 10^3/uL (140-450); Red Blood Cells 2.66 10^6/uL (4.5-5.90); Red Cell Distribution Width 17.6 % (11.8-14.3); White Blood Cell 10.3 10^3/uL (4.4-10.8)
[2019-12-16 04:25] LABS: Calcium 7.8 mg/dL (8.5-10.1); Potassium 3.8 mmol/L (3.5-5.1)
[2019-12-16 04:31] LABS: Albumin 2.4 g/dL (3.4-5.0); Bilirubin, Total 2.1 mg/dL (0.2-1.0); Magnesium 2.3 mg/dL (1.6-2.6); Phosphorus 3.1 mg/dL (2.5-4.90); Total Protein 6.9 g/dL (6.4-8.2)
[2019-12-16] MEDS: METOCLOPRAMIDE HCL 5MG/ml INJ 2ml VIAL IV SCH ×3 (05:52→21:19)
--- NOTE | 2019-12-16 09:11 | NUR ---
Resumed care at 0715, orders reviewed and ongoing assessments being done. Being treated for multiple problems. Remains ventilator dependant and tracheostomy done this admission. Upon arrival awake in bed, very weak but can follow simple direction, ie; squeeze hands lift arms and nods head yes or no to questions. Two chest tubes to right side of the body, right lateral and right posterior upper back. Connect to suction, no air leak noted. Draining serous sanguinous fluid. Maintaining NPO, failed swallow evaluation yesterday. Oral care done and moisturizer applied to inside of mouth. On TPN for nutrition. Complaining of abdominal pain and overall body aches. Has been bedbound since admission. Call out to Dr. Miller for pain management. 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 Both feet are shackled and right arm. Protective barriers placed to prevent skin break down. Addendum: 12/16/19 at 1334 by Sofiya Mixon RN RN grade 1 air leak
[2019-12-16] MEDS ORDERED: MORPHINE SULF INJ 2 MG/ML SYRINGE 1ML IV PRN (09:30)
[2019-12-16] MEDS: SODIUM CHLOR 0.9% PF (SALINE LOCK) 10ML VIAL/SYR IV SCH ×2 (10:20→21:19)
[2019-12-16] MEDS: PANTOPRAZOLE 40 MG/10 ML VIAL INJ IV SCH (10:20)
[2019-12-16] MEDS: DIGOXIN (250MCG/ML) 2 ML AMPULE IV SCH (10:20)
[2019-12-16] MEDS: ALBUMIN 25% 100 ML IV SCH (10:21)
[2019-12-16] MEDS: AMIODARONE HCL 200 MG TAB PO SCH ×2 (10:30→21:20)
[2019-12-16] MEDS: INSULIN LANTUS (GLARGINE) 1 /0.01ml (100units/ml) SC SCH ×2 (10:41→21:54)
--- NOTE | 2019-12-16 13:09 | NUR ---
Dr. Miller was in at 1110, assessed and reviewed plan of care. Morphine ordered for pain management and was given dose at 1029, 2mg IVP, effective. Dr. Scales, planning technician was in to round at 1119. Made him aware that secondary to pain earlier could not attempt trach collar. Will continue trach collar trials as appropriate.
--- NOTE | 2019-12-16 13:34 | NUR ---
Sagrario RT had placed him on trach collar. Guard called out from room. In room and found him breathing very rapid and shallow and waving right arm. Expressed he could not breath. Immediately placed him back on ventilator and called out for Sagrario RT. Not able to tolerate trach collar at this time. Will continue to monitor and assess for readiness.
--- NOTE | 2019-12-16 13:35 | NUR ---
RECEIVED REPORT FROM MICHAEL ANN AND ASSUMED CARE OF PT. ON AIR MATTRESS OVERLAY ON VENT VIA TRACH #8.0 Accellion, PC MODE OF 12 RATE, PRESSURE-30, PEEP-8, FIO2-30%. LUNGS COARSE JIMMY. INSPIRATORY. PT. HAS GAG/COUGH REFLEX. PUPILS 4 AND BRISK JIMMY. NO SEDATION. PT. IS AWAKE, ALERT, ABLE TO FOLLOW COMMANDS. PT. IS INMATE, 2 GUARDS AT BS. RT. WRIST WITH SHACKLE WITH SOCK UNDERNEATH TO PREVENT FRICTION, SKIN INTACT. JIMMY. ANKLES WITH SHACKLES WITH OPTIFOAM DSG. JIMMY. UNDERNEATH TO PROTECT SKIN, INTACT. CT TO RT. UPPER CHEST AND RT. LATERAL CHEST CONNECTED TO Y-SITE AT 40 CM. H20 SUCTION WITH SEROSANGINOUS DRAINAGE. ABD. SOFT, SLIGHTLY DISTENDED, NON-TENDER AT THIS TIME. BOWEL SOUNDS ALL FOUR QUADRANTS. NO N/V. NGT RT. NARE TO LIS WITH BILE DRAINAGE. F/C TO GRAVITY WITH CLEAR LT. FILEMON URINE. RADIAL PULSES STRONG, PALPABLE JIMMY. DORSALIS PEDAL PULSES STRONG, PALPABLE JIMMY. SCD'S JIMMY. LE. RECTAL PROBE IN PLACE. PICC JENNIFER TLC INTACT. PT. IS ON TPN AT 80 CC/HR. RT. SIDE OF ABD. WITH BRUISE. LT. INNER THIGH WITH MACERATION. SCROTUM SWOLLEN WITH ERYTHEMA.
--- NOTE | 2019-12-16 16:45 | NUR ---
PT. HAS BEEN RESTING WITH EYES CLOSED. NO SIGNS OF DISTRESS OR DISCOMFORT.
--- NOTE | 2019-12-16 18:30 | NUR ---
TEMP 100.0 RECTALLY. PLACED ICE PACKS JIMMY. AXILLA. REMOVED SHEET ON PT.
--- NOTE | 2019-12-16 18:50 | NUR ---
Vasopressin and albumin initiated for BP support, goal [id number] per Heidi ([facility] staff).
--- NOTE | 2019-12-16 19:15 | NUR ---
Opening Shift Patient awake and alert. Trach shiley 8 vent FiO2 30%; rate 12; PEEP 8; Pressure 30. Follows commands/slight movement of all extremities. NSR/ST 90s/10s; BPs 110s-130s SBP. NGT right nare to LIS: light green output. Goldstein, patent to gravity. Right triple lumen PICC cdi. Prisoner status: two guards at bedside; shackles on right wrist and bilateral ankles. All fall and safety precautions in place. Specialty bed in lowest position and locked. For more informations see interventions.
[2019-12-16] MEDS ORDERED: TPN PER PHARMACY IV NR ×10 (20:00)
[2019-12-16] MEDS: MORPHINE SULF INJ 2 MG/ML SYRINGE 1ML IV PRN (20:11)
--- NOTE | 2019-12-16 21:40 | NUR ---
TRIED TO COMMUNICATE WITH PATIENT USE PAPER AND PEN FOR PATIENT TO COMMUNICATE, BUT WRITING WAS INCOMPREHENSIBLE. REORIENTATED PATIENT TO ADMISSION TO HOSPITAL AND PLAN OF CARE. PATIENT NODDED YES WHEN ASKED IF HE UNDERSTOOD.
[2019-12-16 22:04] LABS: Urine Bacteria FEW /hpf (None Seen); Urine Blood TRACE /uL (Negative); Urine Mucus FEW (None Seen); Urine Specific Gravity 1.012 (1.001-1.035); Urine WBC 1 /hpf (0 - 3)
[2019-12-17] VITALS (37 sets, daily range): BP systolic 113–148; BP diastolic 60–83
[2019-12-17] MEDS: InsuLIN REG 1unit/0.01ml Soln (100units/ml) SC SCH ×4 (00:21→18:37)
[2019-12-17] MEDS: ACCU-CHEK COMFORT CURVE STRIP VI SCH ×4 (00:21→18:25)
--- NOTE | 2019-12-17 01:25 | NUR ---
complete bed bath given patient tolerated well. skin reassessed and no new break down noted. cleaned with chg and soap and water washcloths.
[2019-12-17] MEDS: ALBUTEROL SULF 2.5 MG/0.5ML(0.5%) NEB SOLN HHN SCH ×6 (01:45→22:26)
[2019-12-17] MEDS: ACETYLCYSTEINE 10 %(100MG/ML) SOL 4ML IN SCH ×6 (01:45→22:26)
[2019-12-17] MEDS: IPRATROPIUM BROM 0.5 MG/2.5ML INH SOL NEB SCH ×6 (01:45→22:26)
[2019-12-17] MEDS: VANCOMYCIN 1GM/250ML 250 ML IV SCH ×3 (03:00→18:24)
[2019-12-17 04:00] LABS: Eosinophils # (auto) 0.5 10 ^3/uL (0-0.8); Hemoglobin 7.8 g/dL (13.5-17.5); Mean Corpuscular Volume 86.4 fL (80.0-100.0); Monocytes # (auto) 0.5 10 ^3/uL (0-1.3); Neutrophils # (auto) 8.3 10 ^3/uL (1.6-8.6); White Blood Cell 10.9 10^3/uL (4.4-10.8)
[2019-12-17] MEDS: PIPERACILLIN-TAZOB 3.375GM 100 ML IV SCH ×3 (04:00→20:00)
[2019-12-17 04:04] LABS: Basophils # (auto) 0 10 ^3/uL (0-0.2); Basophils % (auto) 0.4 % (0.0-2.0); Eosinophils % (auto) 4.3 % (0.0-7.0); Hematocrit 23.2 % (41.0-53.0); Lymphocytes # (auto) 1.5 10 ^3/uL (0.4-5.4); Lymphocytes % (auto) 14.2 % (10.0-50.0); Mean Corpuscular Hemoglobin 28.8 pg (28.0-32.0); Mean Corpuscular Hgb Conc. 33.4 g/dL (32.0-36.0); Monocytes % (auto) 4.6 % (0.0-12.0); Neutrophils % (auto) 76.5 % (37.0-80.0); Platelet Count (auto) 378 10^3/uL (140-450); Red Blood Cells 2.69 10^6/uL (4.5-5.90)
[2019-12-17 04:26] LABS: Albumin 2.3 g/dL (3.4-5.0); BUN/Creatinine Ratio 24.3; Magnesium 2.1 mg/dL (1.6-2.6); Potassium 4.1 mmol/L (3.5-5.1)
[2019-12-17 04:29] LABS: Bilirubin, Total 2.4 mg/dL (0.2-1.0); Phosphorus 3.8 mg/dL (2.5-4.90); Total Protein 6.8 g/dL (6.4-8.2)
[2019-12-17] MEDS: METOCLOPRAMIDE HCL 5MG/ml INJ 2ml VIAL IV SCH ×3 (06:03→22:01)
--- NOTE | 2019-12-17 09:40 | NUR ---
TRACH COLLAR TOOK PT OFF VENT AND PLACED ON TRACH COLLAR TRIAL, 10LPM, FIO2 35%. PT TOLERATING WELL, DENIES SOB, HR 94, RR 26, SPO2 100%, BP 137/77. PT RESTING IN BED, NO S/S OF RESPIRATORY DISTRESS. GUARDS AT BEDSIDE. NOTIFIED MICHAEL RUSS OF CHANGES. WILL CONTINUE TO MONITOR.
[2019-12-17] MEDS: ALBUMIN 25% 100 ML IV SCH (10:27)
[2019-12-17] MEDS: PANTOPRAZOLE 40 MG/10 ML VIAL INJ IV SCH (10:27)
[2019-12-17] MEDS: DIGOXIN (250MCG/ML) 2 ML AMPULE IV SCH (10:27)
[2019-12-17] MEDS: SODIUM CHLOR 0.9% PF (SALINE LOCK) 10ML VIAL/SYR IV SCH ×2 (10:28→22:01)
[2019-12-17] MEDS: AMIODARONE HCL 200 MG TAB PO SCH ×2 (10:28→22:02)
--- NOTE | 2019-12-17 11:36 | NUR ---
WOUND CARE NOTE: Wound care in to see patient for skin integrity monitoring and reevaluation of sacral wounds. Patient continue resting on air bed in ICU in Rm. 103. Patient is on O2 10L via trac collar. Patient is awake, alert and able to communicate by mouthing words. Patient appears to be no pain using Conde Abdul Faces Pain Scale. He needs assistance in turning and repositioning and his Irwin score is 11. Skin/wound assessment done with the assistance of patient's nurse, MICHAEL Vasques. Patient's medial sacrum continue to display open partial thickness wound (Stage 2 pressure injury) measuring 1.5x1.0 cm. Wound bed is pale pink with dark red jenise wound, no drainage/odor noted. Skin erosion/MASD noted to lower sacral/buttock, perirectal area. Jenise care given, applied Z Guard cream and covered sacrum with Opti foam sacral dressing. Reported serum filled blister to his thigh are no longer visible. Scabbed abrasion to upper lips looks improved and scab came off, displaying pink, intact lips. New photograph of sacral wound are taken for reference. Patient tolerated well, repositioned for comfort on facing his Lt side,redistributed pressure points with pillows. Guards at bedside. RECOMMENDATION: Continuation of all wound care orders prescribed by MD, continue with skin/wound plan of care, continue monitoring by wound care while patient is hospitalized. Addendum: 12/17/19 at 1514 by Florinda Trujillo RN Amended: Links added.
[2019-12-17] MEDS: INSULIN LANTUS (GLARGINE) 1 /0.01ml (100units/ml) SC SCH ×2 (12:08→22:15)
--- NOTE | 2019-12-17 13:16 | NUR ---
ENDED TRACH COLLAR TRIAL PLACED PT BACK ON VENT ON PREVIOUS SETTINGS DUE TO TACHYPNEA RR=40 AND INCREASED WOB, PT SAYS HE FEELS TIRED. PT TOLERATING VENT WELL, HR 96, RR 14, SPO2 100%, BP 138/80, NO S/S OF RESPIRATORY DISTRESS. NOTIFIED MICHAEL RUSS OF CHANGES.
--- NOTE | 2019-12-17 15:16 | NUR ---
Nutrition Follow-up Wt.: 99.7 kg Pt remains NPO with TPN support running @80 ml/hr providing 1790 kcal, 100 gms protein and 1390 NPCs. Pt with adequate energy and protein intake from PN support aeb 86% to 99% of estimated caloric needs and 93% to 111% of estimated protein needs. Noted new TPN order for tonight @80 ml/hr that will provide 1690 kcals, and 100g protein, meeting 82%-94% of estimated energy needs, 93%-111% of estimated protein needs, 1290 NCPs and 3% fat. Will continue to monitor NPO status, skin status, pertinent labs and weight trends. Will f/u in 2 to 3 days. Est. energy needs: 5220-5013 kcals (20-23 kcal/kgBW). Est. protein needs: 90-108 gms/day (1.0-1.2 gm/kgBW). - Increased protein needs d/t low prealbumin value. Labs 12/16: Glucose 154 H, Ca 8.0 L, Albumin 2.3 L, TP WNL Skin: Irwin scale 11, high risk, MASD to posterior sacrum. GI: Last BM noted on 11/22/19 per RN doc. PES: 1) Altered nutrition related lab values r/t current medical condition aeb hyponatremia, elevated RFTs, hyperglycemia, hypocalcemia, elev Bili, severe hypoalbuminemia Recommendations: 1) Continue to closely monitor pt NPO status. 2) Advance to EN support or Oral diet when appropriate. 3) If albumin continues trending down, consider Prostat 1 pkt BID. 4) Continue current plan of care.
--- NOTE | 2019-12-17 16:20 | NUR ---
LINEN CHANGE WOUND CARE: Patient provided with complete linen change. Chest tube dressings changed, insertion site cleansed with chlora-prep. Sites redressed with 4x4 gauze and micro foam tape. Thoracotomy incision with edges well approximated, no redness or drainage noted, incision cleansed with Chlora-prep left open to air.
--- NOTE | 2019-12-17 16:22 | NUR ---
TRACH CARE DONE AT THIS TIME. SUTURES STILL IN, STOMA SITE IS ASYMPTOMATIC. SUCTIONED FOR MODERATE AMOUNT THIN WHITE SECRETIONS. PT AWAKE AND RESTING IN BED, NO S/S OF RESPIRATORY DISTRESS. RN AT BEDSIDE.
--- NOTE | 2019-12-17 19:40 | NUR ---
OPENING NOTE RECEIVED REPORT FROM DAY SHIFT RN AND ASSUMED CARE OF PATIENT. PT HAS TRACH SIZE 8.0 SHILEY CONNECTED TO VENTILATOR WITH SETTINGS OF PC 20, RATE 12, FI02 30, AND PEEP OF 8. TPN AND ANTIBIOTIC RUNNING PER MD ORDER TO JENNIFER PICC LINE. NG TUBE TO THE RIGHT NARE CLAMPED. PATENT AND POSITIVE PLACEMENT OBTAINED VIA AUSCULTATION. RIGHT SIDED CHEST TUBE IN PLACE- DRAINING APPROPRIATELY WITH NO SIGNS OF AIR LEAK NOTED. PT IS AWAKE AND MOVING ALL FOUR EXTREMITIES. UNABLE TO COMMUNICATE EFFECTIVELY DUE TO TRACHEOSTOMY, BUT IS TRYING TO MOUTH WORDS. USING WHITE BOARD FOR COMMUNICATION, BUT STILL UNABLE TO IDENTIFY PTS EXACT NEEDS. MAY CATHETER IN PLACE AND DRAINING APPROPRIATELY. VITAL SIGNS STABLE WITH NO S/S OF DISTRESS. PT IS SHACKLED AT ALL FOUR EXTREMITIES WITH 2 GUARDS AT BEDSIDE. WILL CONTINUE TO MONITOR AND ASSESS PT.
[2019-12-17] MEDS: TPN PER PHARMACY IV NR ×11 (19:58)
[2019-12-18] VITALS (28 sets, daily range): BP systolic 111–152; BP diastolic 72–91
[2019-12-18] MEDS: ACCU-CHEK COMFORT CURVE STRIP VI SCH ×5 (00:01→23:36)
[2019-12-18] MEDS: InsuLIN REG 1unit/0.01ml Soln (100units/ml) SC SCH ×4 (00:16→18:00)
--- NOTE | 2019-12-18 01:21 | NUR ---
PT COMMUNICATION PREFORMED ORAL CARE PER PT REQUEST. GAVE PT SMALL AMOUNT OF ICE CHIPS AND HE TOLERATED WELL. NO S/S OF DISTRESS NOTED. PT QUESTIONING NPO STATUS- EXPLAINED SAFETY PRECAUTIONS, PLAN OF CARE, AND THAT HE FAILED HIS SWALLOW EVAL. SHOOK HIS HEAD "YES" WHEN ASKED IF HE UNDERSTOOD.
[2019-12-18] MEDS: ALBUTEROL SULF 2.5 MG/0.5ML(0.5%) NEB SOLN HHN SCH ×6 (02:33→22:14)
[2019-12-18] MEDS: IPRATROPIUM BROM 0.5 MG/2.5ML INH SOL NEB SCH ×6 (02:33→22:14)
[2019-12-18] MEDS: ACETYLCYSTEINE 10 %(100MG/ML) SOL 4ML IN SCH ×6 (02:34→22:14)
[2019-12-18] MEDS: VANCOMYCIN 1GM/250ML 250 ML IV SCH ×3 (02:46→19:00)
--- NOTE | 2019-12-18 03:00 | NUR ---
PT BATH GAVE PT CHG BATH. FULL KIANA CHANGE DONE. SKIN ASSESSED WITH NO NEW CHANGES. PLACED PT ON BEDPAN- NO BM. ORAL CARE PREFORMED.
[2019-12-18] MEDS: PIPERACILLIN-TAZOB 3.375GM 100 ML IV SCH ×3 (04:07→20:00)
--- NOTE | 2019-12-18 05:00 | NUR ---
OPTIFOAM ON SACRUM CHANGED. Z GUARD APPLIED AFTER BATH.
--- NOTE | 2019-12-18 05:30 | NUR ---
RICE DRIER CALL RICE DRIER CALLED FROM [facility]. PASSWORD VERIFIED. UPDATED HER ON PTS PLAN OF CARE. WILL CONTINUE TO FOLLOW UP.
[2019-12-18] MEDS: METOCLOPRAMIDE HCL 5MG/ml INJ 2ml VIAL IV SCH ×3 (06:10→21:49)
--- NOTE | 2019-12-18 09:20 | NUR ---
Respiratory note: TOOK PATIENT OFF VENT AND PLACED ON TRACH COLLAR ON 35% COOL MIST. PT SEEMS TO BE TOLERATING WELL. HR 94, RR 32, SPO2 100%, BP 127/79.
[2019-12-18 09:40] LABS: BUN/Creatinine Ratio 23.2; Calcium 8.2 mg/dL (8.5-10.1); Potassium 4.1 mmol/L (3.5-5.1)
[2019-12-18 09:41] LABS: Albumin 2.7 g/dL (3.4-5.0); Bilirubin, Total 2.2 mg/dL (0.2-1.0); Magnesium 2.3 mg/dL (1.6-2.6); Phosphorus 3.2 mg/dL (2.5-4.90); Total Protein 7.5 g/dL (6.4-8.2)
[2019-12-18] MEDS: SODIUM CHLOR 0.9% PF (SALINE LOCK) 10ML VIAL/SYR IV SCH ×2 (10:00→21:49)
[2019-12-18] MEDS: MORPHINE SULF INJ 2 MG/ML SYRINGE 1ML IV PRN (11:29)
[2019-12-18] MEDS: PANTOPRAZOLE 40 MG/10 ML VIAL INJ IV SCH (11:33)
[2019-12-18] MEDS: ALBUMIN 25% 100 ML IV SCH (11:33)
[2019-12-18] MEDS: AMIODARONE HCL 200 MG TAB PO SCH ×2 (11:34→21:49)
[2019-12-18] MEDS: DIGOXIN (250MCG/ML) 2 ML AMPULE IV SCH (11:34)
[2019-12-18] MEDS: INSULIN LANTUS (GLARGINE) 1 /0.01ml (100units/ml) SC SCH ×2 (12:30→21:50)
--- NOTE | 2019-12-18 19:30 | NUR ---
OPENING NOTE RECEIVED REPORT FROM DAY SHIFT RN AND ASSUMED CARE OF PATIENT. PT HAS TRACH SIZE 8.0 SHILEY CONNECTED TO TRACH COLLAR SINCE 929 THIS MORNING. TPN AND ANTIBIOTIC RUNNING PER MD ORDER TO JENNIFER PICC LINE. NG TUBE TO THE RIGHT NARE CLAMPED. PATENT AND POSITIVE PLACEMENT OBTAINED VIA AUSCULTATION. RIGHT SIDED CHEST TUBE IN PLACE- DRAINING APPROPRIATELY WITH NO SIGNS OF AIR LEAK NOTED. PT IS AWAKE AND MOVING ALL FOUR EXTREMITIES. UNABLE TO COMMUNICATE EFFECTIVELY DUE TO TRACHEOSTOMY, BUT IS TRYING TO MOUTH WORDS. USING WHITE BOARD FOR COMMUNICATION, BUT STILL UNABLE TO IDENTIFY PTS EXACT NEEDS. MAY CATHETER IN PLACE AND DRAINING APPROPRIATELY. VITAL SIGNS STABLE. PT IS SHACKLED AT ALL FOUR EXTREMITIES WITH 2 GUARDS AT BEDSIDE. WILL CONTINUE TO MONITOR AND ASSESS PT.
[2019-12-18] MEDS: TPN PER PHARMACY IV NR ×20 (19:36→19:52)
[2019-12-18] MEDS ORDERED: VANCOMYCIN 1GM/250ML 250 ML IV ONE (19:45)
[2019-12-18] MEDS: ALPRAZolam 0.5 MG TAB PO PRN (19:52)
--- NOTE | 2019-12-18 20:30 | NUR ---
CALL FROM [facility]RECTION MD UPDATED FEDERAL CORRECTION MD ON PT STATUS, LABS, VENTILATOR/TRACH CARE, AND PT PLAN OF CARE.
--- NOTE | 2019-12-18 20:33 | NUR ---
Respiratory note: AT BEDSIDE TO CHANGE COOL AEROSOL WATER. NEW WATER BOTTLE PLACED TO RUN AT 10LPM SET TO DELIVER 35% FIO2 VIA TRACH COLLAR. NO S/S OF DISTRESS NOTED AT THIS TIME WILL CONTINUE TO MONITOR.
--- NOTE | 2019-12-18 22:33 | NUR ---
Respiratory note: MICHAEL CUNNINGHAM COMMUNICATED POC FOR TONIGHT CONCERNING PTS RESPIRATORY RATE PT WAS GIVEN MEDS TO COMFORTABLY TOLERATE NOC OFF VENT. AT THIS TIME PT APPEARS COMFORTABLE AND NOT IN ANY RESPIRATORY DISTRESS MED NEB TX WAS GIVEN AND TRACH SX WAS REFUSED BY PT, IF PTS RR OR HR INCREASES AND MAINTAINS HIGH PT WILL BE PLACED BACK ON VENT.
--- NOTE | 2019-12-18 23:00 | NUR ---
RESPIRATORY PT HAS TACHYPNEA RR >40 BPM, LABORED BREATHING, AND SHORTNESS OF BREATH. PT IS DIAPHORETIC AND TACHYCARDIC WITH HR OF 118 BEATS/MIN. RT MASOOD PLACED PT BACK ON VENTILATOR SETTINGS AND PREFORMED TRACH CARE, SUCTION, AND ORAL CARE WAS DONE. PT REPORTS FEELING BETTER AND BREATHING IMPROVEMENT ONCE PLACED BACK ON VENTILATOR SETTINGS.
[2019-12-19] VITALS (30 sets, daily range): BP systolic 113–161; BP diastolic 71–104
--- NOTE | 2019-12-19 00:21 | NUR ---
Respiratory note: AT BEDSIDE FOR ROUTINE VENT CHECK. NO VENT CHANGES MADE PT COMFORTABLY SLEEPING AT THIS TIME. WILL CONTINUE TO MONITOR Q2H.
--- NOTE | 2019-12-19 01:30 | NUR ---
PT BATH GAVE PT CHG BATH AND DID A FULL KIANA CHANGE. SKIN ASSESSED WITH NO NEW CHANGES NOTED. OPTIFOAM AND Z GUARD REAPPLIED TO SACRUM. ORAL CARE PREFORMED.
--- NOTE | 2019-12-19 01:45 | NUR ---
PICC LINE DRESSING PICC line dressing change done with a sterile technique. Cleansed with chloraprep scrub and alcohol scrubs. Stat lock, and bio-patch as available. Occlusive dressing applied. PICC in tact and flushes appropriately.
[2019-12-19] MEDS: ALBUTEROL SULF 2.5 MG/0.5ML(0.5%) NEB SOLN HHN SCH ×6 (02:16→21:52)
[2019-12-19] MEDS: IPRATROPIUM BROM 0.5 MG/2.5ML INH SOL NEB SCH ×6 (02:16→21:52)
[2019-12-19] MEDS: ACETYLCYSTEINE 10 %(100MG/ML) SOL 4ML IN SCH ×6 (02:16→21:52)
--- NOTE | 2019-12-19 02:16 | NUR ---
Respiratory note: AT BEDSIDE FOR ROUTINE VENT CHECK. PT BEING BATHED BY RN, RN MARISA AT BEDSIDE. NO CHANGES MADE WILL CONTINUE TO MONITOR. NEB TX GIVEN INLINE VIA AEROGEN. NO ADVERSE REACTION NOTED. WILL CONTINUE TO MONITOR Q2H.
--- NOTE | 2019-12-19 02:30 | NUR ---
COOLING MEASURES APPLIED PT NOTED TO BE DIAPHORETIC DURING BATH. TEMP IS 99.8. ICE PACKS APPLIED TO AXILLARY AND GROIN AREA. COOL WASH CLOTH TO FOREHEAD AND FAN IN PLACE. WILL CONTINUE TO MONITOR AND ASSESS.
[2019-12-19] MEDS: VANCOMYCIN 1GM/250ML 250 ML IV SCH ×3 (02:44→20:16)
--- NOTE | 2019-12-19 04:13 | NUR ---
Respiratory note: END OF SHIFT VENT CHECK. NO VENT CHANGES MADE. SXD VIA TRACH FOR THICK CREAMY SILVER SECRETIONS. PTS ORAL CAVITY SXD WELL. WILL HAVE DAY SHIFT CONTINUE POC.
[2019-12-19] MEDS: PIPERACILLIN-TAZOB 3.375GM 100 ML IV SCH ×3 (04:22→20:00)
--- NOTE | 2019-12-19 05:13 | NUR ---
TEMP REASSESSMENT TEMP AT 98.9 FAHRENHEIT. ICE PACKS STILL APPLIED. WILL D/C WHEN TEMP REACHES 98.6.
[2019-12-19 05:14] LABS: Calcium 8.5 mg/dL (8.5-10.1); Magnesium 2.4 mg/dL (1.6-2.6); Potassium 4.2 mmol/L (3.5-5.1)
[2019-12-19 05:17] LABS: BUN/Creatinine Ratio 22.4; Bilirubin, Total 2.3 mg/dL (0.2-1.0); Phosphorus 3.5 mg/dL (2.5-4.90); Total Protein 7.9 g/dL (6.4-8.2)
[2019-12-19] MEDS: InsuLIN REG 1unit/0.01ml Soln (100units/ml) SC SCH ×4 (06:00→18:33)
[2019-12-19] MEDS: METOCLOPRAMIDE HCL 5MG/ml INJ 2ml VIAL IV SCH ×3 (06:00→21:47)
[2019-12-19] MEDS: ACCU-CHEK COMFORT CURVE STRIP VI SCH ×3 (06:00→18:35)
--- NOTE | 2019-12-19 07:30 | NUR ---
AM ASSESSMENT DONE, PT CURRENTLY ON VENT BUT WILL BE ON TRACH COLLAR LATER ON ONCE ABG IS DONE. PT AWAKE ALERT MOUTHING WORDS. 2 SENIOR CARE GUARDS AT BED SIDE . VSS, AFEBRILE EDUCATED ON POC, PT NODDED HEAD ON AGREEMENT ON POC.
--- NOTE | 2019-12-19 09:15 | NUR ---
PT OOB UP IN CHAIR WITH PT. PT PERFORMED PHYSICAL THERAPY OOB ON CHAIR. PT TOLERATED PROCEDURE WELL. PT'S NGT PULLED OUT WHILE PT WAS BEING TRANSFERRED FROM CHAIR TO BED. PT REFUSED TO HAVE NGT REPLACED DUE TO COUGHING AND GAGING. PT STILL PENDING A SWALLOW EVALUATION.
--- NOTE | 2019-12-19 09:55 | NUR ---
PT WAS TAKEN OFF VENTILATOR AND PLACED ON 30% COOL MIST AEROSOL VIA TRACH MASK. PT IS ALERT AND ORIENTED, ABLE TO UNDERSTAND AND FOLLOW INDICATIONS. PT SITTING UP IN CHAIR AT BEDSIDE. TRACH SUCTIONED FOR SMALL AMOUNT OF PALE SECRETION WITHOUT INCIDENT. 99% O2 SATS, HR 109 BPM, RR22 BPM, BP 127/82. RESPIRATION IS EVEN AND NON LABORED. WILL CONTINUE TO MONITOR PT.
[2019-12-19] MEDS: AMIODARONE HCL 200 MG TAB PO SCH ×3 (10:00→22:24)
[2019-12-19] MEDS: ALBUMIN 25% 100 ML IV SCH (10:16)
[2019-12-19] MEDS: SODIUM CHLOR 0.9% PF (SALINE LOCK) 10ML VIAL/SYR IV SCH ×2 (10:17→22:21)
[2019-12-19] MEDS: PANTOPRAZOLE 40 MG/10 ML VIAL INJ IV SCH (10:17)
[2019-12-19] MEDS: DIGOXIN (250MCG/ML) 2 ML AMPULE IV SCH (10:17)
[2019-12-19] MEDS: INSULIN LANTUS (GLARGINE) 1 /0.01ml (100units/ml) SC SCH ×2 (10:28→22:00)
--- NOTE | 2019-12-19 11:35 | NUR ---
SWALLOW EVALUATION FOLLOW UP. RESPIRATORY THERAPIST PRESENT TO DEFLATE CUFF. PATIENT ABLE TO TOLERATE PUREE DIET TEXTURE WITH THIN LIQUIDS WITH NO OVERT SIGNS OR SYMPTOMS OF ASPIRATION. NURSING NOTIFIED.
--- NOTE | 2019-12-19 12:30 | NUR ---
ASSISTED TO EAT LUNCH, A CLEAR LIQUID DIET. PT TOLERATED DIET WITHOUT ANY S+S OF ASPIRATIONS. PT HAD TO BE COACHED TO SLOW DOWN WHILE EATING. PT TRIES TO EAT AND DRINK TOO FAST.
--- NOTE | 2019-12-19 13:15 | NUR ---
PT ASSISTED BACK TO BED BY PHYSICAL THERAPY AND STAFF. PT WAS TIRED FROM SITTING UP FOR 4 HOURS ALREADY. PT REQUIRED MAXIMUM ASSISTANCE TRANSFERRING BACK TO BED. PT TOLERATED TRANSFER BACK TO BED WITHOUT ANY COMPLICATIONS.
--- NOTE | 2019-12-19 19:30 | NUR ---
pt. sitting up on bed eating a clear liquid diet . pt remains on trach collar.at 35% cool mist.
[2019-12-19] MEDS: TPN PER PHARMACY IV NR ×18 (20:00→20:06)
--- NOTE | 2019-12-19 21:30 | NUR ---
at 1999 pt have thrown juices all over and secretions all over the chest PM care done, changed gowns and linene. Advised not to throw jiuces and call the nurse if needed. No resp distree but tachypneic and encouraged to take a slow breathing. On st at 128/min but afebrile
[2019-12-19] MEDS: ALPRAZolam 0.5 MG TAB PO PRN (22:52)
--- NOTE | 2019-12-19 23:07 | NUR ---
at 2200 pt. is anxious and restless. Encouraged to take a deeper breath 10 times
--- NOTE | 2019-12-19 23:08 | NUR ---
at 2245 pt keeps removing electrodes and cables but refused xanax when offered
[2019-12-20] VITALS (18 sets, daily range): BP systolic 118–147; BP diastolic 59–92
--- NOTE | 2019-12-20 01:22 | NUR ---
[id number] pt was more agitated and HR was at130 and resp rate at 35/min so RT was called to change from trach collar to vent attachment and tolerated well after
[2019-12-20] MEDS: IPRATROPIUM BROM 0.5 MG/2.5ML INH SOL NEB SCH ×7 (01:51→22:10)
[2019-12-20] MEDS: ALBUTEROL SULF 2.5 MG/0.5ML(0.5%) NEB SOLN HHN SCH ×7 (01:51→22:10)
[2019-12-20] MEDS: ACETYLCYSTEINE 10 %(100MG/ML) SOL 4ML IN SCH ×7 (01:52→22:11)
[2019-12-20] MEDS: VANCOMYCIN 1GM/250ML 250 ML IV SCH ×3 (02:50→17:57)
[2019-12-20] MEDS: PIPERACILLIN-TAZOB 3.375GM 100 ML IV SCH ×3 (04:36→20:07)
--- NOTE | 2019-12-20 05:20 | NUR ---
0200-no resp distress observed but remained tachpneic and tachycardeic
--- NOTE | 2019-12-20 05:21 | NUR ---
0400 complete bed bath given and total linen changed done.oral care given . on st. Iv is patent
[2019-12-20] MEDS: InsuLIN REG 1unit/0.01ml Soln (100units/ml) SC SCH ×4 (06:13→17:41)
[2019-12-20] MEDS: ACCU-CHEK COMFORT CURVE STRIP VI SCH ×4 (06:21→17:41)
[2019-12-20] MEDS: METOCLOPRAMIDE HCL 5MG/ml INJ 2ml VIAL IV SCH ×3 (06:21→22:17)
--- NOTE | 2019-12-20 06:27 | NUR ---
at 0400 detective sergeant are here to redraw pt lab but afeter their convincing and my explanation he refused and wants it later
--- NOTE | 2019-12-20 07:15 | NUR ---
Respiratory note: PT TAKEN OFF VENT AND PLACE ON COOL AEROSOL WITH TRACH COLLAR. SET AT 8 LPM AND 35% 02. PT TOLERATING WELL. WILL CONTINUE TO MONITOR.
[2019-12-20 07:37] LABS: Albumin 3.1 g/dL (3.4-5.0); Calcium 8.7 mg/dL (8.5-10.1); Magnesium 2.4 mg/dL (1.6-2.6); Potassium 4.4 mmol/L (3.5-5.1)
[2019-12-20 07:41] LABS: BUN/Creatinine Ratio 22.7; Bilirubin, Total 2.3 mg/dL (0.2-1.0); Phosphorus 3.6 mg/dL (2.5-4.90); Total Protein 8.3 g/dL (6.4-8.2)
--- NOTE | 2019-12-20 08:00 | NUR ---
Opening Shift Note Assumed care of patient, awake and alert. No S/S of distress/SOB or pain. Patient on trache collar 35% cool mist, saturation 96%. RT chest tube on -40 cm H2O suction, no drainage from shift supervisor melting per Lisa RN report. See interventions for complete assessment. Bed locked on low position, side rails up x2, bed alarms on at all times, call navarro within reach, instructed on POC and to call for assist PRN, will continue to monitor for changes Q1hr and PRN. Two truck guard at bedside.
--- NOTE | 2019-12-20 09:20 | NUR ---
Patient out of bed to bedside chair with Bryon AMEZQUITA Fall precautions in place. Patient tolerated well.
[2019-12-20] MEDS: DIGOXIN (250MCG/ML) 2 ML AMPULE IV SCH ×2 (09:42→10:00)
[2019-12-20] MEDS: PANTOPRAZOLE 40 MG/10 ML VIAL INJ IV SCH ×2 (09:42→10:00)
[2019-12-20] MEDS: SODIUM CHLOR 0.9% PF (SALINE LOCK) 10ML VIAL/SYR IV SCH ×2 (09:43→22:17)
[2019-12-20] MEDS: AMIODARONE HCL 200 MG TAB PO SCH ×2 (09:43→22:00)
[2019-12-20] MEDS: INSULIN LANTUS (GLARGINE) 1 /0.01ml (100units/ml) SC SCH ×3 (09:46→22:18)
--- NOTE | 2019-12-20 10:00 | NUR ---
Respiratory note: PT REFUSED Q4 MEDNEB FOR 1000. PT IN NO DISTRESS. WILL CONTINUE TO MONITOR.
--- NOTE | 2019-12-20 10:25 | NUR ---
Patient refused Protonix, Digoxin, Lantus stating in "They don't help me get better, I'm tired." Purpose of medication re-explained but patient stated "I refused." Will inform MD.
--- NOTE | 2019-12-20 10:53 | NUR ---
Patient back to bed from bedside chair with Bryon VOGEL, fall precautions in place. Patient tolerated well.
--- NOTE | 2019-12-20 11:00 | NUR ---
Dr Stapleton at bedside, updated on patient's status. Patient seen and examined. Will carry out new orders.
--- NOTE | 2019-12-20 11:05 | NUR ---
Patient refused Vancomycin IV stating "I don't want it."
--- NOTE | 2019-12-20 12:45 | NUR ---
Dr Miller at bedside, updated on patient's status. Informed patient refused Protonix IV, Digoxin IV, Lantus, Vancomycin IV. MD verbalized understanding. Patient seen and examined. Spoke to patient regarding POC and compliance. Patient agreed to be cooperative.
--- NOTE | 2019-12-20 14:03 | NUR ---
Respiratory note: PT REFUSED Q4 MEDNEB FOR 1400. PT IN NO DISTRESS. WILL CONTINUE TO MONITOR.
--- NOTE | 2019-12-20 15:40 | NUR ---
Nutrition Follow-up Wt.: 86.2 kg Pt is on a Clear Liquid Diet with TPN support running @80 ml/hr providing 1630 kcal, 110 gms protein and 1190 NPCs. Pt with adequate energy and protein intake from PN support aeb 79% to 91% of estimated caloric needs and 102% to 122% of estimated protein needs. Will continue to monitor NPO status, skin status, pertinent labs and weight trends. Will f/u in 2 to 3 days. Est. energy needs: 4942-6180 kcals (20-23 kcal/kgBW). Est. protein needs: 90-108 gms/day (1.0-1.2 gm/kgBW). - Increased protein needs d/t low prealbumin value. Labs 12/16: Glucose 231 H, Na 134 L, Albumin 3.1 L, TP 8.3 H Skin: Irwin scale 16, moderate risk, Please refer to wound assessment report for full details GI: Last BM noted on 12/20/19 per RN doc. PES: 1) Altered nutrition related lab values r/t current medical condition aeb hyponatremia, elevated RFTs, hyperglycemia, hypocalcemia, elev Bili, severe hypoalbuminemia Recommendations: 1) Continue to closely monitor pt NPO status. 2) Advance to EN support or Oral diet when appropriate. 3) If albumin continues trending down, consider Prostat 1 pkt BID. 4) Continue current plan of care.
--- NOTE | 2019-12-20 15:45 | NUR ---
Respiratory note: PT REFUSED TRACH CARE. PT BECAME AGGRESSIVE TOWARDS RT. PT TRIED TO BITE RIGHT ARM THEN MADE A FIST AND SAID HE WANTED TO HIT ME.
--- NOTE | 2019-12-20 19:00 | NUR ---
Opening Shift Note Assumed care of patient, awake and alert. No S/S of distress/SOB or pain. Patient on trache collar 35% cool mist, saturation 97%. RT chest tube on -40 cm H2O suction, 50mL drainage per Alina RN report. Bed locked on low position, side rails up x2, bed alarms on at all times, call navarro within reach, instructed on POC and to call for assist PRN, will continue to monitor for changes Q1hr and PRN. Two usp guards at patient bedside.
[2019-12-20] MEDS ORDERED: TPN PER PHARMACY IV NR ×11 (20:00)
[2019-12-20] MEDS: TPN PER PHARMACY IV NR ×9 (20:15)
--- NOTE | 2019-12-20 22:22 | NUR ---
PT PLACED ON VENT FOR NOC USE. PT TOLERATING AT THIS TIME. TRACH COLLAR REMAINS AT BEDSIDE.
[2019-12-21] VITALS (26 sets, daily range): BP systolic 95–141; BP diastolic 60–92
[2019-12-21] MEDS: ACCU-CHEK COMFORT CURVE STRIP VI SCH ×4 (00:25→18:35)
[2019-12-21] MEDS: InsuLIN REG 1unit/0.01ml Soln (100units/ml) SC SCH ×4 (00:26→18:47)
[2019-12-21] MEDS: VANCOMYCIN 1GM/250ML 250 ML IV SCH ×3 (01:43→18:34)
[2019-12-21] MEDS: ACETYLCYSTEINE 10 %(100MG/ML) SOL 4ML IN SCH ×6 (02:12→22:00)
[2019-12-21] MEDS: IPRATROPIUM BROM 0.5 MG/2.5ML INH SOL NEB SCH ×6 (02:12→22:00)
[2019-12-21] MEDS: ALBUTEROL SULF 2.5 MG/0.5ML(0.5%) NEB SOLN HHN SCH ×6 (02:12→22:00)
[2019-12-21 03:59] LABS: Basophils # (auto) 0.1 10 ^3/uL (0-0.2); Eosinophils # (auto) 0.3 10 ^3/uL (0-0.8); Hemoglobin 8.8 g/dL (13.5-17.5); Mean Corpuscular Volume 87.7 fL (80.0-100.0); Monocytes # (auto) 0.4 10 ^3/uL (0-1.3); Monocytes % (auto) 4.2 % (0.0-12.0); Neutrophils % (auto) 82.3 % (37.0-80.0); White Blood Cell 9.7 10^3/uL (4.4-10.8)
[2019-12-21] MEDS: PIPERACILLIN-TAZOB 3.375GM 100 ML IV SCH ×3 (04:00→20:16)
--- NOTE | 2019-12-21 04:00 | NUR ---
Total bed bath given. Oral care performed. IV site remains good and patent. Patient resting in bed comfortably. Patient refused linen change at time of bed bath.
[2019-12-21 04:02] LABS: Basophils % (auto) 0.6 % (0.0-2.0); Eosinophils % (auto) 2.7 % (0.0-7.0); Hematocrit 26.2 % (41.0-53.0); Lymphocytes % (auto) 10.2 % (10.0-50.0); Mean Corpuscular Hemoglobin 29.4 pg (28.0-32.0); Mean Corpuscular Hgb Conc. 33.5 g/dL (32.0-36.0); Platelet Count (auto) 515 10^3/uL (140-450); Red Blood Cells 2.99 10^6/uL (4.5-5.90)
[2019-12-21 04:08] LABS: Albumin 2.8 g/dL (3.4-5.0); Calcium 8.4 mg/dL (8.5-10.1); Magnesium 2.3 mg/dL (1.6-2.6); Potassium 4.3 mmol/L (3.5-5.1)
[2019-12-21 04:13] LABS: BUN/Creatinine Ratio 28.3; Bilirubin, Total 2.1 mg/dL (0.2-1.0); Phosphorus 3.2 mg/dL (2.5-4.90)
[2019-12-21 04:43] LABS: Red Cell Distribution Width 20.3 % (11.8-14.3)
[2019-12-21] MEDS: METOCLOPRAMIDE HCL 5MG/ml INJ 2ml VIAL IV SCH ×3 (05:41→21:39)
--- NOTE | 2019-12-21 06:00 | NUR ---
OUTPUTS: 100mL output from chest tube. 900mL output from meng catheter.
--- NOTE | 2019-12-21 06:15 | NUR ---
MALWARE ANALYST FROM [facility] CALLED: MALWARE ANALYST FROM [facility] CALLED. PASSWORD WAS VERIFIED. SW WAS UPDATED ON PATIENT'S PLAN OF CARE. MALWARE ANALYST WILL CONTINUE TO FOLLOW UP.
--- NOTE | 2019-12-21 07:30 | NUR ---
OPENING NOTE SHIFT REPORT RECEIVED AND ASSUMED CARE OF PT FROM TIMO RODRIGUEZ
--- NOTE | 2019-12-21 09:15 | NUR ---
PHYSICAL THERAPIST AT BEDSIDE PT IS SITTING IN CHAIR AT BEDSIDE. PT IS TOLERATING WELL. WILL CONTINUE TO MONITOR.
[2019-12-21] MEDS: AMIODARONE HCL 200 MG TAB PO SCH ×2 (10:19→21:40)
[2019-12-21] MEDS: PANTOPRAZOLE 40 MG/10 ML VIAL INJ IV SCH (10:19)
[2019-12-21] MEDS: SODIUM CHLOR 0.9% PF (SALINE LOCK) 10ML VIAL/SYR IV SCH ×2 (10:21→21:39)
[2019-12-21] MEDS: DIGOXIN (250MCG/ML) 2 ML AMPULE IV SCH (10:21)
[2019-12-21] MEDS: INSULIN LANTUS (GLARGINE) 1 /0.01ml (100units/ml) SC SCH ×2 (10:29→21:41)
--- NOTE | 2019-12-21 10:52 | NUR ---
RT NOTE: TRACH CARE PERFORMED WITHOUT INCIDENT WITH STERILE GLOVES. DRAIN SPONGE, CORRUGATED TUBING AND TRACH MASK CHANGED. INNER CANNULA CHANGED. REDNESS NOTED AROUND SUTURES. PT. HAS STRONG COUGH. EXTRA TRACH SET AND OBTURATOR AT BEDSIDE, ALONG WITH BVM CONNECTED TO O2 SOURCE.
[2019-12-21] MEDS: HYDROcodone-ACET 5/325MG TAB PO PRN ×2 (11:01→21:41)
--- NOTE | 2019-12-21 12:40 | NUR ---
DR. ZARATE AT BEDSIDE ORDERS RECEIVED
[2019-12-21] MEDS ORDERED: BUMETANIDE 2.5mg/10ml (0.25 mg/ml) INJ IV ONE (13:15)
--- NOTE | 2019-12-21 13:45 | NUR ---
RECEIVED CALL FROM DR. PELAEZ FROM PT[facility]S [facility] FOR UPDATE. UPDATED ON PT STATUS. NO FURTHER QUESTIONS OR CONCERNS AT THIS TIME.
--- NOTE | 2019-12-21 16:04 | NUR ---
RT NOTE: VENT PULLED. DRAIN SPONGE CHANGED WITHOUT INCIDENT.
--- NOTE | 2019-12-21 16:11 | NUR ---
PT'S RESPIRATORY RATE HAS BEEN GREATER THAN 30 THROUGHOUT DAY BUT DOES NOT EXHIBIT OR EXPRESS ANY DISCOMFORT, SOB, FATIGUE, OR RESPIRATORY DISTRESS. THIS MAY BE PT'S NORM HE IS NOT EXPERIENCING ANY DISCOMFORT AND HAS NO QUESTIONS OR CONCERNS AT THIS TIME. NO S/S OF DISTRESS. WILL CONTINUE TO MONITOR
[2019-12-21] MEDS: ALPRAZolam 0.5 MG TAB PO PRN ×2 (16:30→18:41)
--- NOTE | 2019-12-21 17:15 | NUR ---
CLOSING NOTE SHIFT REPORT GIVE BACK AND CARE ENDORSED TO TIMO RODRIGUEZ
[2019-12-21] MEDS: Ensure HIGH Protein Vanilla 8oz Bottle PO SCH ×2 (18:34→21:40)
--- NOTE | 2019-12-21 19:00 | NUR ---
Opening Shift Note Assumed care of patient, awake and alert. No S/S of distress/SOB or pain. Patient remains on trache collar, saturation 97%. RT chest tube clamped. Bed locked on low position, side rails up x2, bed alarms on at all times, call navarro within reach, instructed on POC and to call for assist PRN, will continue to monitor for changes Q1hr and PRN. Two skilled nursing guards at patient bedside.
[2019-12-21] MEDS ORDERED: DOPamine 1600MCG/ML D5W 250 ML IV ONE (19:07)
[2019-12-21] MEDS ORDERED: TPN PER PHARMACY IV NR ×10 (20:00)
[2019-12-22] VITALS (13 sets, daily range): BP systolic 93–115; BP diastolic 61–84
[2019-12-22] MEDS: ACCU-CHEK COMFORT CURVE STRIP VI SCH ×4 (00:14→17:40)
[2019-12-22] MEDS: InsuLIN REG 1unit/0.01ml Soln (100units/ml) SC SCH ×4 (00:15→17:40)
[2019-12-22] MEDS: HYDROcodone-ACET 5/325MG TAB PO PRN ×2 (01:13→22:38)
--- NOTE | 2019-12-22 02:00 | NUR ---
BM: Patient stated he had to have a BM. Patient was placed on a bedpan. Patient only passed gas, no BM at this time.
--- NOTE | 2019-12-22 02:10 | NUR ---
Total bed bath given. Oral care performed. IV site remains good and patent. Patient resting in bed comfortably. Linen change performed.
[2019-12-22] MEDS: VANCOMYCIN 1GM/250ML 250 ML IV SCH ×3 (02:14→17:40)
[2019-12-22] MEDS: ACETYLCYSTEINE 10 %(100MG/ML) SOL 4ML IN SCH ×6 (02:16→22:23)
[2019-12-22] MEDS: ALBUTEROL SULF 2.5 MG/0.5ML(0.5%) NEB SOLN HHN SCH ×6 (02:16→22:23)
[2019-12-22] MEDS: IPRATROPIUM BROM 0.5 MG/2.5ML INH SOL NEB SCH ×6 (02:16→22:23)
[2019-12-22] MEDS: PIPERACILLIN-TAZOB 3.375GM 100 ML IV SCH ×3 (03:51→20:09)
[2019-12-22] MEDS: Ensure HIGH Protein Vanilla 8oz Bottle PO SCH ×4 (05:37→22:18)
[2019-12-22] MEDS: METOCLOPRAMIDE HCL 5MG/ml INJ 2ml VIAL IV SCH ×3 (05:40→22:18)
--- NOTE | 2019-12-22 05:52 | NUR ---
OUTPUT: 1200mL output from meng catheter.
--- NOTE | 2019-12-22 06:15 | NUR ---
Dr. Stapleton rounding on patient.
--- NOTE | 2019-12-22 06:25 | NUR ---
New orders: Pieter Gan gave new verbal orders to change IV digoxin to PO digoxin and for digoxin labs. Orders verified with
--- NOTE | 2019-12-22 06:46 | NUR ---
Labs drawn by RN per MD orders and sent.
--- NOTE | 2019-12-22 07:10 | NUR ---
OPENING NOTE SHIFT REPORT GET BACK AND ASSUMED CARE OF PT FROM TIMO RODRIGUEZ
--- NOTE | 2019-12-22 09:40 | NUR ---
DR. CABRALES CALLED NO NEW ORDERS AT THIS TIME BUT STATES TO KEEP CHEST TUBE CLAMPED AND HE WILL EVALUATE WHEN HE COMES IN. HE IS OK WITH KEEPING PT SAT'S ABOVE 91%. PT IS NOT EXHIBITING WITH S/S OF DISTRESS AT THIS TIME. WILL CONTINUE TO MONITOR.
[2019-12-22] MEDS: ENOXAPARIN SOD 40 MG/0.4 ML SYRINGE SC SCH (11:22)
[2019-12-22] MEDS: PANTOPRAZOLE 40 MG/10 ML VIAL INJ IV SCH (11:22)
[2019-12-22] MEDS: DIGOXIN 0.125 MG TAB PO SCH (11:23)
[2019-12-22] MEDS: AMIODARONE HCL 200 MG TAB PO SCH ×2 (11:23→22:18)
[2019-12-22] MEDS: SODIUM CHLOR 0.9% PF (SALINE LOCK) 10ML VIAL/SYR IV SCH ×2 (11:24→22:18)
[2019-12-22] MEDS: INSULIN LANTUS (GLARGINE) 1 /0.01ml (100units/ml) SC SCH ×2 (11:25→22:37)
--- NOTE | 2019-12-22 11:45 | NUR ---
SHIFT REPORT GIVEN TO BERTA RODRIGUEZ
[2019-12-22] MEDS: SOD CHL 0.45% WITH 20MEQ KCL 1,000 ML IV SCH ×2 (11:51→20:15)
--- NOTE | 2019-12-22 12:00 | NUR ---
PT TRANSFERRED TO TELE WITH 2 GUARDS AND LAITH RN AND JOSSIE RN AT BEDSIDE
--- NOTE | 2019-12-22 12:13 | NUR ---
ICU patient trans to floor SBAR received from BULL FLOAT FINISHER Dea. JOEL RIVERA transferred to [facility] via gurney on site monitor and portable 02. All patient medications and personal belongings transferred with patient to receiving floor. Telemetry admit from ER JOEL RIVERA admitted to Telemetry unit after SBAR received. Patient oriented to Krystyna Teague RN primary RN, unit, room, bed, and unit policies regarding patient care and visiting hours. Patient now on continuous telemetry monitoring, tele box # 25. Patient placed on bedside oxygen, weighed by bedscale and encouraged to call if they need something. All questions and concerns addressed, patient verbalized understanding.
--- NOTE | 2019-12-22 13:07 | NUR ---
Nutrition Follow-up Wt.: 84.500 kg Pt is on a Pureed diet with good PO intake aeb avg 100% intake. Will continue to monitor PO intake, skin status, pertinent labs and weight trends. Will f/u prn. Est. energy needs: 0167-5279 kcals (20-23 kcal/kgBW). Est. protein needs: 90-108 gms/day (1.0-1.2 gm/kgBW). Labs 12/20: Na 132 L, Glucose 299 H, POC 150 H, Albumin 2.8 L, Ca 8.4 L Skin: Irwin scale 16, moderate risk, pressure ulcer to posterior sacrum. PES: 1) Altered nutrition related lab values r/t current medical condition aeb hyponatremia, elevated RFTs, hyperglycemia, hypocalcemia, elev Bili, severe hypoalbuminemia Recommendations: 1) If albumin continues trending down, consider Prostat 1 pkt BID. 2) Continue current plan of care. Addendum: 12/22/19 at [address] Pt was on a Pureed diet with good PO intake aeb avg 100% intake. Currently on Clear Liquid Diet.
--- NOTE | 2019-12-22 14:03 | NUR ---
RT NOTE: UPON ASSESSMENT, IT IS NOTED THAT PT APPEARS TO HAVE COUGHED UP SOME OF HIS JELLO THROUGH HIS TRACH. RN WAS NOTIFIED FOR POSSIBLE ASPIRATION. PT STATES THAT HE IS EXPERIENCING SOME SOB. TRACH CARE DONE. WILL CONTINUE TO MONITOR.
--- NOTE | 2019-12-22 14:35 | NUR ---
RT NOTE: PAGED TO PT ROOM DO TO C/O SOB. SPO2 WAS 98%. PT ASKED TO BE SUCTIONED. SECRETIONS SMALL/THIN-THICK/WHITE. PT STATED HE STILL WAS FEELING SOB. PT STATED THAT HE DOES GET ANXIETY BUT HAS NOT BEEN GIVEN ANY MEDS. NOTE LEFT FOR RN TO POSSIBLY GIVE MEDS. WILL CONTINUE TO MONITOR.
[2019-12-22] MEDS: ALPRAZolam 0.5 MG TAB PO PRN (16:07)
--- NOTE | 2019-12-22 18:25 | NUR ---
Respiratory note: AT BEDSIDE FOR MED CHENCHO DIOP.
--- NOTE | 2019-12-22 19:00 | NUR ---
Opening Shift Note Assumed care of patient, awake and alert. Patient has a trach, patient having coughing spurts and mucous coming out of his trach, monitoring patients O2 sat. Patient does not complain of pain at this time. Instructed on POC and to call for assist PRN, will continue to monitor for changes Q1hr and PRN. Patient is aphasic, and hard to read lips. Patient gets a little confused and tries to pull out his trach. Will continue to monitor patient. Guards at bedside.
--- NOTE | 2019-12-22 19:12 | NUR ---
CLOSING SHIFT NOTE ENDORSED CARE TO GUEST RELATIONS COORDINATOR RN IVET. PATIENT HAS NO S/S OF DISTRESS/SOB OR PAIN AT THIS TIME.
--- NOTE | 2019-12-22 22:23 | NUR ---
Respiratory note: AT BEDSIDE FOR MED CHENCHO DIOP.
[2019-12-23] MEDS: ACCU-CHEK COMFORT CURVE STRIP VI SCH ×4 (00:23→18:25)
[2019-12-23] MEDS: VANCOMYCIN 1GM/250ML 250 ML IV SCH ×2 (02:01→10:35)
[2019-12-23] MEDS: IPRATROPIUM BROM 0.5 MG/2.5ML INH SOL NEB SCH ×6 (02:24→21:01)
[2019-12-23] MEDS: ALBUTEROL SULF 2.5 MG/0.5ML(0.5%) NEB SOLN HHN SCH ×6 (02:24→21:02)
[2019-12-23] MEDS: ACETYLCYSTEINE 10 %(100MG/ML) SOL 4ML IN SCH ×6 (02:24→21:02)
--- NOTE | 2019-12-23 02:31 | NUR ---
Respiratory note: AT BEDSIDE FOR MED CHENCHO DIOP.
[2019-12-23] MEDS: PIPERACILLIN-TAZOB 3.375GM 100 ML IV SCH ×3 (03:58→20:02)
[2019-12-23 05:30] VITALS: BP 114/74
[2019-12-23] MEDS: Ensure HIGH Protein Vanilla 8oz Bottle PO SCH ×4 (05:51→22:00)
[2019-12-23] MEDS: METOCLOPRAMIDE HCL 5MG/ml INJ 2ml VIAL IV SCH ×3 (05:51→22:11)
[2019-12-23] MEDS: InsuLIN REG 1unit/0.01ml Soln (100units/ml) SC SCH ×4 (05:57→18:00)
[2019-12-23] MEDS: ALPRAZolam 0.5 MG TAB PO PRN (06:17)
[2019-12-23] MEDS: SOD CHL 0.45% WITH 20MEQ KCL 1,000 ML IV SCH ×3 (06:30→22:11)
--- NOTE | 2019-12-23 07:15 | NUR ---
Opening Shift Note Assumed care of patient, awake and alert. Patient has a trach collar receiving 8L O2 , patient having coughing spurts and mucous coming out of his trach, patient O2 sat currently 93%. Goldstein patent, draining yellow urine, hung below waistline. Patient does not complain of pain at this time. Instructed on POC and to call for assist PRN, will continue to monitor for changes Q1hr and PRN. Patient is aphasic. Will continue to monitor patient. Guards at bedside.
[2019-12-23 09:00] VITALS: BP 113/68
[2019-12-23] MEDS: SODIUM CHLOR 0.9% PF (SALINE LOCK) 10ML VIAL/SYR IV SCH ×2 (10:00→22:00)
[2019-12-23] MEDS: INSULIN LANTUS (GLARGINE) 1 /0.01ml (100units/ml) SC SCH ×2 (10:00→22:00)
[2019-12-23] MEDS: PANTOPRAZOLE 40 MG/10 ML VIAL INJ IV SCH (10:36)
[2019-12-23] MEDS: ENOXAPARIN SOD 40 MG/0.4 ML SYRINGE SC SCH (10:36)
[2019-12-23] MEDS: METOPROLOL TARTRATE 1MG/1ML-5ML VIAL IV PRN ×2 (10:36→22:11)
[2019-12-23] MEDS: DIGOXIN 0.125 MG TAB PO SCH (10:37)
[2019-12-23] MEDS: AMIODARONE HCL 200 MG TAB PO SCH (10:37)
--- NOTE | 2019-12-23 11:00 | NUR ---
Provider notified Dr Amparo Stapleton notified of inability of patient to swallow pills. New orders received to change Lanoxin 0.125 mg PO once a day, to Lanoxin 125 mcg IV once a day. Order to HOLD Amiodarone also received until patient able to swallow pill, pharmacy was notified of changes.
[2019-12-23] MEDS: MORPHINE SULF INJ 2 MG/ML SYRINGE 1ML IV PRN ×2 (11:16→16:40)
--- NOTE | 2019-12-23 11:16 | NUR ---
Pain Patient complaining of pain to abdominal/posterior chest area. Per patient pain scale 6/10. Will medicate per MD orders.
--- NOTE | 2019-12-23 11:40 | NUR ---
RE: Pain Patient currently sleeping, no pain noted at this moment.
[2019-12-23 13:00] VITALS: BP 115/70
[2019-12-23] MEDS ORDERED: ALPRAZolam 0.5 MG TAB PO PRN (16:15)
[2019-12-23] MEDS ORDERED: TPN PER PHARMACY 0 ML IV SCH (16:15)
--- NOTE | 2019-12-23 16:25 | NUR ---
Bernadine Miller regarding medication change for patient. Patient unable to swallow pills without aspirating. Patient requesting anxiety medication. Patient has order for Xanax 0.5 mg PO Q12hr PRN. New orders received to stop Xanax and start patient on Lorazepam 0.5mg Q4hr PRN. Will implement orders.
--- NOTE | 2019-12-23 16:40 | NUR ---
Pain Patient complaining of pain to abdominal/posterior chest area. Per patient pain scale 6/10. Will medicate per MD orders.
[2019-12-23 17:00] VITALS: BP 104/61
--- NOTE | 2019-12-23 17:30 | NUR ---
Communication Per Dr. Leonid sawant to deflate trach valve so patient can eat. MD informed of increased mucous expectoration from trach when patient tried eating breakfast in the am and O2 levels dropping to 60's. Per MD give patient clear liquid dinner and monitor O2 sat, oxygenation to remain above 91% while eating.
--- NOTE | 2019-12-23 18:04 | NUR ---
TRACHEOSTOMY CUFF DEFLATED PER DR. GRIDER.
--- NOTE | 2019-12-23 18:30 | NUR ---
Pt attempt to eat 1800- This RN at bedside during first 10 minutes of dinner. No s/s of distress noted during feeding only occasional coughs with mucous expectoration through tracheostomy. 1830- Per patient he was unable to finish dinner because he kept "choking". Will endorse information and patient care to [facility] nurse.
--- NOTE | 2019-12-23 19:30 | NUR ---
Opening Shift Note Assumed care of patient, awake and alert. No S/S of distress/SOB or pain. Patient meng draining. Patient tracheostomy connected to oxygen. Safety measures in place bed in lowest position, side rails x2 up, and call light within reach. Instructed on POC and to call for assist PRN, will continue to monitor for changes Q1hr and PRN.
[2019-12-23] MEDS: AMINO ACID INFUSION IN D5W 1,000 ML IV NR (20:01)
--- NOTE | 2019-12-23 21:28 | NUR ---
TRACH CARE DONE AT THIS TIME. INNER CANNULA CLEANED, TRACH TIES REPLACED, AND TRACH COLLAR REPLACED WITH A T-PIECE FOR AVAILABILITY OF INLINE SUCTIONING. SUCTION TUBING AND YAUNKER REPLACED DUE TO OCCLUSIONS. MED NEB TX ADMINISTERED INLINE. NO ADVERSE REACTION NOTED. PT REMAINS ON COOL AEROSOL WITH 30% FIO2.
[2019-12-23 22:00] VITALS: BP 113/68
[2019-12-23] MEDS: HYDROcodone-ACET 5/325MG TAB PO PRN (22:15)
[2019-12-24] MEDS: InsuLIN REG 1unit/0.01ml Soln (100units/ml) SC SCH ×4 (00:53→18:00)
[2019-12-24] MEDS: ACCU-CHEK COMFORT CURVE STRIP VI SCH ×4 (01:07→18:00)
[2019-12-24] MEDS: IPRATROPIUM BROM 0.5 MG/2.5ML INH SOL NEB SCH ×6 (02:03→22:21)
[2019-12-24] MEDS: ACETYLCYSTEINE 10 %(100MG/ML) SOL 4ML IN SCH ×6 (02:03→22:21)
[2019-12-24] MEDS: ALBUTEROL SULF 2.5 MG/0.5ML(0.5%) NEB SOLN HHN SCH ×6 (02:03→22:21)
[2019-12-24] MEDS: PIPERACILLIN-TAZOB 3.375GM 100 ML IV SCH ×3 (04:14→20:24)
[2019-12-24 04:30] VITALS: BP 133/85
[2019-12-24 05:40] LABS: Albumin 2.8 g/dL (3.4-5.0); Calcium 8.6 mg/dL (8.5-10.1); Magnesium 2.2 mg/dL (1.6-2.6); Potassium 3.8 mmol/L (3.5-5.1)
[2019-12-24 05:45] LABS: BUN/Creatinine Ratio 22.8; Bilirubin, Total 1.3 mg/dL (0.2-1.0); Phosphorus 3.2 mg/dL (2.5-4.90); Pre Albumin 9.6 mg/dL (20.0-40.0)
[2019-12-24] MEDS: Ensure HIGH Protein Vanilla 8oz Bottle PO SCH ×4 (06:00→22:00)
[2019-12-24] MEDS: METOCLOPRAMIDE HCL 5MG/ml INJ 2ml VIAL IV SCH ×3 (06:22→22:27)
--- NOTE | 2019-12-24 07:15 | NUR ---
Opening Shift Note Assumed care of patient, awake and alert. Patient has a trach collar receiving 8L O2 , patient having coughing spurts and mucous coming out of his trach, patient O2 sat currently 98%. Goldstein patent, draining yellow urine, hung below waistline. Patient does not complain of pain at this time. Instructed on POC and to call for assist PRN, will continue to monitor for changes Q1hr and PRN. Patient is aphasic. Will continue to monitor patient. Guards at bedside.
[2019-12-24 08:30] VITALS: BP 118/71
[2019-12-24] MEDS: INSULIN LANTUS (GLARGINE) 1 /0.01ml (100units/ml) SC SCH ×2 (10:00→22:28)
[2019-12-24] MEDS: ENOXAPARIN SOD 40 MG/0.4 ML SYRINGE SC SCH (10:06)
[2019-12-24] MEDS: PANTOPRAZOLE 40 MG/10 ML VIAL INJ IV SCH (10:06)
[2019-12-24] MEDS: VANCOMYCIN 1GM/250ML 250 ML IV SCH ×2 (10:08→20:24)
[2019-12-24] MEDS: DIGOXIN (250MCG/ML) 2 ML AMPULE IV SCH (10:08)
[2019-12-24] MEDS: SODIUM CHLOR 0.9% PF (SALINE LOCK) 10ML VIAL/SYR IV SCH ×2 (10:09→22:00)
[2019-12-24] MEDS: LORazepam 2MG/ML-1ML VIAL IV PRN ×2 (11:49→18:39)
--- NOTE | 2019-12-24 12:05 | NUR ---
WOUND CARE NOTE: IN TO SEE PATIENT AT THIS TIME FOR WOUND REASSESSMENT. PATIENT IS AWAKE, ALERT, ORIENTED X 4, IN NO STATED PAIN. HE CONTINUES TO BE VENTILATED BY WAY OF TRACHEOSTOMY. PATIENT CONTINUES TO REST ON AIR BED. CURRENT ABBY SCORE IS 14. PATIENT IS ABLE TO SELF TURN/REPOSITION HIMSELF NOW INDEPENDENTLY AT THIS TIME. PATIENT'S PARTIAL THICKNESS PRESSURE INJURY AND ALL SKIN EROSION IS NOW INTACT/RESOLVED. HE CONTINUES TO HAVE MASD, WITH DARK RED SKIN. AREA CONTINUES TO BE TENDER TO THE TOUCH. SKIN DOES ANTONIO. APPLIED ZGUARD AND OPTIFOAM GENTLE SACRAL DRESSING TO AREA TO COVER AND PROTECT. SACRAL SKIN WAS PHOTOGRAPHED AT THIS TIME FOR REFERENCE. RECOMMEND: CONTINUATION WITH ALL WOUND CARE ORDERS PREVIOUSLY PRESCRIBED BY MD. WOUND CARE TEAM WILL CONTINUE TO MONITOR. Addendum: 12/24/19 at 1417 by Denisha Thornton RN Amended: Links added.
--- NOTE | 2019-12-24 12:30 | NUR ---
Pt tolerated solid food Diet changed from clear liquid diet to consistent carbohydrate. Patient ate 50% of lunch without any complications.
[2019-12-24 12:43] VITALS: BP 120/72
--- NOTE | 2019-12-24 12:56 | NUR ---
Nutrition Consult/Follow-up note Wt.: 84.200 kg Received nutrition consult for pt resuming TPN. Noted pt diet advanced to Regular. Pt with poor PO intake r/t difficulty swallowing, per RN. Pt receiving parenteral nutrition with Clinimix @42 ml/hr providing 340 kcal and 42.5 g protein. Pt with inadequate energy and protein intake from PN support aeb 16% to 20% of estimated caloric needs and 34% to 42% of estimated protein needs. Will continue to monitor PO intake, PN regimen, skin status, pertinent labs and weight trends. Will f/u in 2 to 3 days. Est. energy needs: 5628-0826 kcals (20-25 kcal/kgBW). Est. protein needs: 101-126 gms/day (1.2-1.5 gm/kgBW) - Prealbumin 9.6 L (12/24/19) Labs 12/23: Na 134 L, Glucose 116 H, POC 123 H, Albumin 2.8 L, Prealbumin 9.6 L, TG 168 H. Skin: Irwin scale 17, moderate risk, scab healing pressure point to medial sacrum. PES: 1) Altered nutrition related lab values r/t current medical condition aeb hyponatremia, elevated RFTs, hyperglycemia, hypocalcemia, elevated bilirubin severe hypoalbuminemia Recommendations: 1) Adjust parenteral nutrition regimen to meet at least 75% of energy and protein needs. 2) Suggest tapering PN when 33-50% energy needs met from PO intake. 3) Suggest D/C PN when pt can tolerate 60% energy needs from PO intake. 4) Continue current plan of care.
--- NOTE | 2019-12-24 12:59 | NUR ---
paged Dr. Miller paged. Regarding pharmacy wanting to know if TPN should be continued or if order will be discontinued now that patients diet has changed. Awaiting call back from .
[2019-12-24] MEDS: HYDROcodone-ACET 5/325MG TAB PO PRN ×2 (14:22→22:28)
[2019-12-24 17:34] VITALS: BP 128/79
[2019-12-24] MEDS: SOD CHL 0.45% WITH 20MEQ KCL 1,000 ML IV SCH (18:39)
--- NOTE | 2019-12-24 19:30 | NUR ---
Opening Shift Note Assumed care of patient, awake and alert to self. No S/S of distress/SOB or pain. Safety measures in place bed in lowest position, side rails x2 up, and call light within reach. Instructed on POC and to call for assist PRN, will continue to monitor for changes Q1hr and PRN.
--- NOTE | 2019-12-24 19:40 | NUR ---
Paged Dr. Miller inquiring if patient should continue with TPN feeding and Clinimix supplement since the patient's diet has advanced to regular food, and patient is tolerating meal well. Awaiting orders.
[2019-12-24] MEDS: AMINO ACID INFUSION IN D5W 1,000 ML IV NR (19:49)
[2019-12-24] MEDS ORDERED: TPN PER PHARMACY IV NR ×8 (20:00)
[2019-12-24 22:00] VITALS: BP 130/79
[2019-12-24 23:41] VITALS: BP 130/79
[2019-12-25] MEDS: InsuLIN REG 1unit/0.01ml Soln (100units/ml) SC SCH ×4 (00:54→18:20)
[2019-12-25] MEDS: ACCU-CHEK COMFORT CURVE STRIP VI SCH ×4 (00:55→18:15)
[2019-12-25] MEDS: IPRATROPIUM BROM 0.5 MG/2.5ML INH SOL NEB SCH ×4 (01:58→18:09)
[2019-12-25] MEDS: ALBUTEROL SULF 2.5 MG/0.5ML(0.5%) NEB SOLN HHN SCH ×3 (01:58→09:55)
[2019-12-25] MEDS: ACETYLCYSTEINE 10 %(100MG/ML) SOL 4ML IN SCH ×3 (01:58→09:55)
[2019-12-25] MEDS: PIPERACILLIN-TAZOB 3.375GM 100 ML IV SCH ×3 (04:04→20:19)
[2019-12-25] MEDS: HYDROcodone-ACET 5/325MG TAB PO PRN ×3 (04:06→18:33)
[2019-12-25 05:00] VITALS: BP 120/77
[2019-12-25 05:39] LABS: Basophils # (auto) 0.1 10 ^3/uL (0-0.2); Basophils % (auto) 0.5 % (0.0-2.0); Eosinophils # (auto) 0.3 10 ^3/uL (0-0.8); Eosinophils % (auto) 2.9 % (0.0-7.0); Hematocrit 27.7 % (41.0-53.0); Hemoglobin 9.3 g/dL (13.5-17.5); Lymphocytes # (auto) 1.3 10 ^3/uL (0.4-5.4); Mean Corpuscular Hemoglobin 29.6 pg (28.0-32.0); Mean Corpuscular Hgb Conc. 33.7 g/dL (32.0-36.0); Mean Corpuscular Volume 87.7 fL (80.0-100.0); Monocytes # (auto) 0.6 10 ^3/uL (0-1.3); Monocytes % (auto) 6.3 % (0.0-12.0); Neutrophils # (auto) 7.7 10 ^3/uL (1.6-8.6); Neutrophils % (auto) 77.3 % (37.0-80.0); Nucleated Red Blood Cells % 0.1 %; Platelet Count (auto) 546 10^3/uL (140-450); Red Blood Cells 3.15 10^6/uL (4.5-5.90); Red Cell Distribution Width 19.6 % (11.8-14.3)
[2019-12-25 05:49] LABS: Calcium 8.3 mg/dL (8.5-10.1)
[2019-12-25 05:56] LABS: Albumin 2.7 g/dL (3.4-5.0); BUN/Creatinine Ratio 19.6; Bilirubin, Total 1.1 mg/dL (0.2-1.0); Magnesium 2.1 mg/dL (1.6-2.6); Phosphorus 2.6 mg/dL (2.5-4.90); Total Protein 8.1 g/dL (6.4-8.2)
--- NOTE | 2019-12-25 06:37 | NUR ---
Respiratory note: PATIENT FOUND ON 40% COOL AEROSOL AT 100%. FIO2 DECREASED TO 30% AT THIS TIME, SPO2 MAINTAINED AT 98%.
[2019-12-25] MEDS: METOCLOPRAMIDE HCL 5MG/ml INJ 2ml VIAL IV SCH ×3 (06:40→22:35)
[2019-12-25] MEDS: VANCOMYCIN 1GM/250ML 250 ML IV SCH ×2 (06:40→17:18)
--- NOTE | 2019-12-25 07:15 | NUR ---
Opening Shift Note Assumed care of patient, awake and alert. Patient has a trach collar receiving 8L O2 , patient having coughing spurts and mucous coming out of his trach, patient O2 sat currently 95%. Goldstein patent, draining yellow urine, hung below waistline. Patient does not complain of pain at this time. Instructed on POC and to call for assist PRN, will continue to monitor for changes Q1hr and PRN. Patient is aphasic. Will continue to monitor patient. Guards at bedside.
[2019-12-25 09:00] VITALS: BP 122/72
[2019-12-25] MEDS: SODIUM CHLOR 0.9% PF (SALINE LOCK) 10ML VIAL/SYR IV SCH ×2 (10:00→22:00)
[2019-12-25] MEDS: INSULIN LANTUS (GLARGINE) 1 /0.01ml (100units/ml) SC SCH ×2 (10:00→22:37)
[2019-12-25] MEDS: ENOXAPARIN SOD 40 MG/0.4 ML SYRINGE SC SCH (10:00)
[2019-12-25] MEDS: Ensure HIGH Protein Vanilla 8oz Bottle PO SCH ×4 (10:47→22:00)
[2019-12-25] MEDS: SOD CHL 0.45% WITH 20MEQ KCL 1,000 ML IV SCH ×2 (10:47→17:18)
[2019-12-25] MEDS: DIGOXIN (250MCG/ML) 2 ML AMPULE IV SCH (10:48)
[2019-12-25] MEDS: PANTOPRAZOLE 40 MG/10 ML VIAL INJ IV SCH (10:48)
[2019-12-25] MEDS: ALBUTEROL SULF 2.5 MG/0.5ML(0.5%) NEB SOLN NEB SCH ×2 (12:00→18:08)
[2019-12-25 12:36] VITALS: BP 121/76
--- NOTE | 2019-12-25 16:30 | NUR ---
Respiratory note: PATIENT REMOVED FROM T-PIECE AND PMV WAS PLACED ON AT THIS TIME. TRACH MASK PLACED OVER PMV AND REMAINS SET AT 30% FIO2. PATIENT TOLERATING WELL. TRACH CARE DONE AT THIS TIME.
[2019-12-25] MEDS: LORazepam 2MG/ML-1ML VIAL IV PRN ×2 (17:17→22:37)
[2019-12-25 17:27] VITALS: BP 142/82
--- NOTE | 2019-12-25 17:30 | NUR ---
Anxiety Patient experiencing anxiety attack, patient found in bed gasping for air, patient connected to trach collar receiving 8L of oxygen. Patient sweating and visibly in distress. Will medicate per doctors orders.
[2019-12-25] MEDS: ACETYLCYSTEINE 10 %(100MG/ML) SOL 4ML NEB SCH (18:09)
--- NOTE | 2019-12-25 18:20 | NUR ---
Pain Patient complains of generalized pain but primarily abdominal/chest area. Pain scale 6/10. Will medicate per doctors orders.
--- NOTE | 2019-12-25 19:20 | NUR ---
Opening Shift Note Assumed care of patient, awake and alert. No S/S of distress/SOB or pain. Safety measures in place call light within reach, side rails x2 up, and bed in lowest position. Instructed on POC and to call for assist PRN, will continue to monitor for changes Q1hr and PRN.
[2019-12-25] MEDS: TPN PER PHARMACY IV NR ×9 (20:19)
[2019-12-25 22:00] VITALS: BP 139/79
[2019-12-25] MEDS: AMIODARONE HCL 200 MG TAB PO SCH (22:36)
[2019-12-26] MEDS: ACCU-CHEK COMFORT CURVE STRIP VI SCH ×4 (00:07→18:00)
--- NOTE | 2019-12-26 00:08 | NUR ---
Patient receiving TPN feeding. Patient's BS 177 needs 4 units Insulin. Patient refused. Educated patient on risk and benefits. Patient verbalized understanding, patient refused. Will continue to monitor. Will reassess blood sugar at 0600.
[2019-12-26] MEDS: HYDROcodone-ACET 5/325MG TAB PO PRN (00:33)
[2019-12-26] MEDS: VANCOMYCIN 1GM/250ML 250 ML IV SCH ×2 (02:25→13:06)
[2019-12-26] MEDS: PIPERACILLIN-TAZOB 3.375GM 100 ML IV SCH ×3 (04:31→19:59)
[2019-12-26 05:00] VITALS: BP 137/87
[2019-12-26 05:28] LABS: Albumin 2.7 g/dL (3.4-5.0); Calcium 8.3 mg/dL (8.5-10.1); Potassium 4.2 mmol/L (3.5-5.1)
[2019-12-26 05:33] LABS: BUN/Creatinine Ratio 15.9; Bilirubin, Total 1.1 mg/dL (0.2-1.0); Phosphorus 2.6 mg/dL (2.5-4.90)
[2019-12-26] MEDS: ACETYLCYSTEINE 10 %(100MG/ML) SOL 4ML NEB SCH ×3 (05:51→18:54)
[2019-12-26] MEDS: IPRATROPIUM BROM 0.5 MG/2.5ML INH SOL NEB SCH ×3 (05:51→18:54)
[2019-12-26] MEDS: ALBUTEROL SULF 2.5 MG/0.5ML(0.5%) NEB SOLN NEB SCH ×3 (05:51→18:54)
[2019-12-26] MEDS: Ensure HIGH Protein Vanilla 8oz Bottle PO SCH ×4 (06:00→21:14)
[2019-12-26] MEDS: METOCLOPRAMIDE HCL 5MG/ml INJ 2ml VIAL IV SCH ×2 (06:18→17:30)
[2019-12-26] MEDS: InsuLIN REG 1unit/0.01ml Soln (100units/ml) SC SCH ×4 (06:24→18:00)
[2019-12-26] MEDS: LORazepam 2MG/ML-1ML VIAL IV PRN ×3 (08:55→19:59)
[2019-12-26 09:00] VITALS: BP 150/66
--- NOTE | 2019-12-26 09:00 | NUR ---
WHEN ASSUMING CARE OF PATIENT WITNESSED PT COUGHING FOOD OUT OF TRACH MIXED WITH THICK GREEN TINGED SPUTUM. C/O SOB. O2 AT 99-100. EXCITABLE, NERVOUS. PLACED NPO. NOTIFIED MD. CASTELLON PRESENT [place] [facility] [place] REPOSITIONED, PROPPED PILLOWS. COLD WASH CLOTH PROVIDED. MEDICATED WITH PRN ATIVAN.
[2019-12-26] MEDS: AMIODARONE HCL 200 MG TAB PO SCH ×2 (10:00→21:12)
[2019-12-26] MEDS: SODIUM CHLOR 0.9% PF (SALINE LOCK) 10ML VIAL/SYR IV SCH ×2 (10:00→21:12)
[2019-12-26] MEDS: PANTOPRAZOLE 40 MG/10 ML VIAL INJ IV SCH (10:40)
[2019-12-26] MEDS: ENOXAPARIN SOD 40 MG/0.4 ML SYRINGE SC SCH (10:41)
[2019-12-26] MEDS: DIGOXIN (250MCG/ML) 2 ML AMPULE IV SCH (10:41)
[2019-12-26 11:30] VITALS: BP 155/70
--- NOTE | 2019-12-26 11:43 | NUR ---
SWALLOW RE-EVALUATED WITH RESPIRATORY THERAPIST PRESENT. NURSING REPORTS FOOD RELEASED THROUGH TRACH WHILE ATTEMPTING REGULAR TEXTURE AT BREAKFAST. CURRENT EVALUATION RECOMMENDATION IS FOR PUREE WITH NECTAR THICKENED LIQUIDS WHICH PATIENT IS ABLE TO TOLERATE WITH NO OVERT SIGNS OR SYMPTOMS OF ASPIRATION. NURSING NOTIFIED.
--- NOTE | 2019-12-26 11:44 | NUR ---
Nutrition Follow-up note Wt.: 86.500 kg Pt was on Regular diet with fair PO intake aeb avg 63% intake since last assessment. Pt's diet currently changed to Puree diet. Pt is still receiving parenteral nutrition @57 ml/hr providing 1300 kcal, 70g protein and 1020 NPCs. Pt with adequate total energy and protein intake aeb 62% to 77% of estimated caloric needs and 56% to 69% of estimated protein needs met from PN support. Rest of energy and protein needs met from oral diet. Noted new TPN order @59 ml/hr for tonight. Will continue to monitor PO intake, PN regimen, skin status, pertinent labs and weight trends. Will f/u in 2 to 3 days. Est. energy needs: 0512-7628 kcals (20-25 kcal/kgBW). Est. protein needs: 101-126 gms/day (1.2-1.5 gm/kgBW) - Prealbumin 9.6 L (12/24/19) Labs 12/25: Na 131 L, Glucose 281 H, Ca 8.3 L, Albumin 2.7 L Skin: Irwin scale 14, moderate risk, scab healing pressure point to medial sacrum. PES: 1) Altered nutrition related lab values r/t current medical condition aeb hyponatremia, elevated RFTs, hyperglycemia, hypocalcemia, elevated bilirubin severe hypoalbuminemia Recommendations: 1) Suggest tapering and D/C PN if pt can tolerate 60% energy needs from PO intake. 2) Continue current plan of care.
--- NOTE | 2019-12-26 11:59 | NUR ---
RT ROUNDS. PT FREQUENTLY COUGHS FORCEFULLY DISPLACING PACI MUR VALUE. VALUE GETS MISPLACED IN LINEN. KEPT IN PLACE IT IS RECOMMENDED BY RT TO STRENGTHEN BREATHING.
--- NOTE | 2019-12-26 12:20 | NUR ---
INDICATES DECREASE APPETITE. TAKES IN ONLY A FEW BITES OF PUREE DIET. CONTINUES ON TPN VIA PICC. SITS UP AT EDGE OF BED. O2 SENSOR TO RT FINGER NOT GIVING CONSISTENT READING, REPLACED TO INSURE ACCURACY. O2 SAT NOW BETWEEN 92% AND 95%. WHEN RETURNED TO SEMI FOWLERS IN BED DESATURATES TO 88% WHEN LAYING FLAT. WHEN RELAXED RESPIRATORY EFFORT IMPROVES WITH O2 SAT 98%. WHEN EXCITED EFFORT INCREASES WITH ATTEMPTS TO SPEAK AND SATURATION DECREASES TO 90-92%
[2019-12-26] MEDS: INSULIN LANTUS (GLARGINE) 1 /0.01ml (100units/ml) SC SCH ×2 (13:05→21:13)
--- NOTE | 2019-12-26 13:15 | NUR ---
C/O ANXIETY. TREMBLES. DRAMATIC IN NATURE. MEDICATED WITH PRN ATIVAN. COMMUNICATES THAT HE TAKES MEDICATION AT NIGHT FOR DEPRESSION. HE INDICATES PAXIL.
[2019-12-26] MEDS: SOD CHL 0.45% WITH 20MEQ KCL 1,000 ML IV SCH (14:40)
--- NOTE | 2019-12-26 15:16 | NUR ---
RT CALLED INTO PT ROOM BY FELLOW RN PT CLAIMED TO BE SOB AND DIAPHORETIC. RT ASSESSES REPOSITIONS UP IN BED. O2 SAT SENSOR REAPPLIED TO FINGER. SUCTIONED. REMAINS LABORED TO BREATH. DR. CASTELLON CONTACTED AND MADE AWARE. REVIEWED PORTABLE CXR TAKEN THIS AM AND READ TO HIM THE REPORT. HE ORDERS ABG.
[2019-12-26 17:00] VITALS: BP 135/77
--- NOTE | 2019-12-26 18:50 | NUR ---
Respiratory note: UPON ENTERING PT ROOM FOR BREATHING TX. PT WAS FOUND EATING HIS DINNER AND WITH FOOD THAT WAS COUGHED OUT OF HIS TRACH ON HIS CHEST. SUCTIONED COPIOUS AMOUNTS OF FOOD FROM TRACH. WENT AND INFORMED RN OF THE SITUATION. CHANGED OUT COOL AEROSOL TUBING ALONG WITH TRACH MASK. MED NEB TX GIVEN, TOLERATED WELL. WILL CONTINUE TO MONITOR. Addendum: 12/27/19 at 0430 by RADHA BARRERA RT RT APPEARS THAT PT MAY HAVE ASPIRATED.
--- NOTE | 2019-12-26 18:57 | NUR ---
RESTED WITH PERIODS OF SLEEPING. VALVE TAKEN OUT BY RT. ASSISTED WITH PUREE DIET FOR DINNER. TAKES IN 4 TO 5 BITES. WHEN RT ROUNDS FOR BREATHING TREATMENTS THEY FIND PT HAS FOOD COUGHED OUT OF TRACH THAT HAS SOILED GOWN. GOWN, LINENS CHANGES AND PT WASHED. RT CHANGES OUT TUBING AND SUCTIONS LARGE AMOUNTS OF FOOD FROM TRACH SITE. DISCUSSION HAD WITH RT REGARDING PROPER USE OF PASSY MUR VALVE. PT TO REMAIN NPO THROUGH THE NIGHT AND REASSESSED IN THE AM.
--- NOTE | 2019-12-26 19:30 | NUR ---
Opening Shift Note Assumed care of patient, awake, non verbal. No S/S of distress/SOB or pain. Tracheostomy tube in place. Instructed on POC and to call for assist PRN, will continue to monitor for changes Q1hr and PRN. Side rails up x2. Bed locked in lowest position. Call light within reach. 2 guards at bedside. Cuffs on bilateral ankles. No skin breakdown noted.
[2019-12-26] MEDS: TPN PER PHARMACY IV NR ×19 (19:50→20:03)
[2019-12-26 22:00] VITALS: BP 118/80
--- NOTE | 2019-12-26 22:48 | NUR ---
PICC line Patient pulled on PICC line and removed dressing. Catheter came out about 2 inches. Dressing changed and stopped infusion. Will notify doctor and charge nurse. 2 guards remain at bedside. Guard placed hand cuff on patients left wrist. Cuffs on bilateral ankles remain in place.
--- NOTE | 2019-12-26 23:50 | NUR ---
Central line position above SVC per chest xray. Charge nurse and House Sup aware. House Sup gave okay to continue use of central line.
[2019-12-27] MEDS: ACCU-CHEK COMFORT CURVE STRIP VI SCH ×4 (01:28→18:23)
[2019-12-27] MEDS: LORazepam 2MG/ML-1ML VIAL IV PRN ×3 (01:29→11:45)
[2019-12-27] MEDS: VANCOMYCIN 1GM/250ML 250 ML IV SCH ×2 (03:20→16:26)
--- NOTE | 2019-12-27 03:38 | NUR ---
Respiratory note: ROUTINE TRACH CARE. PRIOR TO CLEANING, PT HAD LARGE AMOUNTS OF BROWN DRIED SECRETIONS ON HIS CHEST. HAD TO SCRUB PT CHEST TO GET SECRETIONS OFF.
[2019-12-27] MEDS: PIPERACILLIN-TAZOB 3.375GM 100 ML IV SCH ×3 (04:13→21:21)
[2019-12-27 05:00] VITALS: BP 116/73
[2019-12-27 05:40] LABS: Albumin 2.8 g/dL (3.4-5.0); Calcium 8.5 mg/dL (8.5-10.1); Potassium 4.2 mmol/L (3.5-5.1)
[2019-12-27 05:44] LABS: BUN/Creatinine Ratio 17.2; Bilirubin, Total 1.1 mg/dL (0.2-1.0); Phosphorus 3.3 mg/dL (2.5-4.90); Total Protein 7.8 g/dL (6.4-8.2)
[2019-12-27] MEDS: METOCLOPRAMIDE HCL 5MG/ml INJ 2ml VIAL IV SCH ×3 (05:46→22:10)
[2019-12-27] MEDS: Ensure HIGH Protein Vanilla 8oz Bottle PO SCH ×3 (05:47→18:22)
[2019-12-27] MEDS: InsuLIN REG 1unit/0.01ml Soln (100units/ml) SC SCH ×4 (06:05→18:00)
[2019-12-27] MEDS: ALBUTEROL SULF 2.5 MG/0.5ML(0.5%) NEB SOLN NEB SCH ×3 (06:55→18:16)
[2019-12-27] MEDS: ACETYLCYSTEINE 10 %(100MG/ML) SOL 4ML NEB SCH ×3 (06:55→18:17)
[2019-12-27] MEDS: IPRATROPIUM BROM 0.5 MG/2.5ML INH SOL NEB SCH ×3 (06:55→18:16)
--- NOTE | 2019-12-27 07:00 | NUR ---
Endorsed care to day shift RN. Patient in bed awake on trach collar at 8 LPM. Patient is on continuous pulse ox monitor. O2 sat at 97%. No signs of distress/pain noted. 2 guards at bedside.
--- NOTE | 2019-12-27 07:50 | NUR ---
Opening Shift Note Assumed care of patient, awake and alert, trac to 8lO2. No S/S of distress/SOB or pain, pt pulled up in bed for comfort. Instructed on POC and to call for assist PRN, will continue to monitor for changes Q1hr and PRN.
--- NOTE | 2019-12-27 08:30 | NUR ---
Respiratory note: PATIENT DID NOT TOLERATED SPEAKING VALVE. PT ASKED TO TAKE OFF SPEAKING VALVE ONLY 1 MINUTE AFTER WEARING. HE GETS VERY ANXIOUS AND STARTS TO PANIC. SPO2 REMAINS THE SAME WITH SPEAKING VALVE. I NOTIFIED RN AND WILL TRY AGAIN AFTER ANXIETY MEDS ARE GIVEN.
[2019-12-27 09:00] VITALS: BP 105/54
[2019-12-27] MEDS: DIGOXIN (250MCG/ML) 2 ML AMPULE IV SCH (11:12)
[2019-12-27] MEDS: PANTOPRAZOLE 40 MG/10 ML VIAL INJ IV SCH (11:12)
[2019-12-27] MEDS: SOD CHL 0.45% WITH 20MEQ KCL 1,000 ML IV SCH (11:12)
[2019-12-27] MEDS: ENOXAPARIN SOD 40 MG/0.4 ML SYRINGE SC SCH (11:13)
[2019-12-27] MEDS: SODIUM CHLOR 0.9% PF (SALINE LOCK) 10ML VIAL/SYR IV SCH ×2 (11:15→22:10)
[2019-12-27] MEDS: INSULIN LANTUS (GLARGINE) 1 /0.01ml (100units/ml) SC SCH ×2 (11:15→22:00)
[2019-12-27] MEDS: AMIODARONE HCL 200 MG TAB PO SCH ×2 (11:16→22:10)
[2019-12-27 13:00] VITALS: BP 139/85
[2019-12-27] MEDS: HYDROcodone-ACET 5/325MG TAB PO PRN ×2 (16:26→22:50)
[2019-12-27 16:30] VITALS: BP 140/82
--- NOTE | 2019-12-27 19:20 | NUR ---
Opening Shift Note Assumed care of patient, awake and alert. Patient has trach and currently on 8L O2. No S/S of distress/SOB or pain. Guards are present in room. Bed is locked in lowest position with call light within reach. Instructed on POC and to call for assist PRN, will continue to monitor for changes Q1hr and PRN.
[2019-12-27] MEDS: TPN PER PHARMACY IV NR ×10 (19:53)
[2019-12-27] MEDS ORDERED: TPN PER PHARMACY IV NR ×11 (20:00)
[2019-12-27 22:00] VITALS: BP 130/84
--- NOTE | 2019-12-27 23:15 | NUR ---
SUCTION Patient requested suction of trach. Performed suction. Patient tolerated the suction well.
[2019-12-28] VITALS (7 sets, daily range): BP systolic 124–145; BP diastolic 73–86
[2019-12-28] MEDS: SOD CHL 0.45% WITH 20MEQ KCL 1,000 ML IV SCH ×2 (00:16→14:37)
[2019-12-28] MEDS: ACCU-CHEK COMFORT CURVE STRIP VI SCH ×4 (00:16→17:28)
[2019-12-28] MEDS: InsuLIN REG 1unit/0.01ml Soln (100units/ml) SC SCH ×4 (00:17→17:27)
[2019-12-28] MEDS: Ensure HIGH Protein Vanilla 8oz Bottle PO SCH ×5 (00:18→22:57)
[2019-12-28 02:56] LABS: Albumin 2.6 g/dL (3.4-5.0); BUN/Creatinine Ratio 17.2; Calcium 8.3 mg/dL (8.5-10.1); Magnesium 1.8 mg/dL (1.6-2.6); Potassium 3.8 mmol/L (3.5-5.1)
[2019-12-28 02:59] LABS: Phosphorus 3.2 mg/dL (2.5-4.90); Total Protein 7.8 g/dL (6.4-8.2)
[2019-12-28] MEDS: VANCOMYCIN 1GM/250ML 250 ML IV SCH ×2 (03:00→14:37)
[2019-12-28] MEDS: PIPERACILLIN-TAZOB 3.375GM 100 ML IV SCH ×3 (04:00→20:00)
[2019-12-28] MEDS: METOCLOPRAMIDE HCL 5MG/ml INJ 2ml VIAL IV SCH ×3 (06:25→22:00)
[2019-12-28] MEDS: LORazepam 2MG/ML-1ML VIAL IV PRN ×2 (06:26→13:25)
[2019-12-28] MEDS: IPRATROPIUM BROM 0.5 MG/2.5ML INH SOL NEB SCH ×3 (07:13→18:26)
[2019-12-28] MEDS: ALBUTEROL SULF 2.5 MG/0.5ML(0.5%) NEB SOLN NEB SCH ×3 (07:13→18:26)
[2019-12-28] MEDS: ACETYLCYSTEINE 10 %(100MG/ML) SOL 4ML NEB SCH ×3 (07:14→18:25)
--- NOTE | 2019-12-28 07:20 | NUR ---
Opening Shift Note Assumed care of patient, awake and alert. No S/S of distress/SOB or pain. Patient states he will try and eat today. Instructed on POC and to call for assist PRN, will continue to monitor for changes Q1hr and PRN.
[2019-12-28] MEDS: PANTOPRAZOLE 40 MG/10 ML VIAL INJ IV SCH (11:02)
[2019-12-28] MEDS: DIGOXIN (250MCG/ML) 2 ML AMPULE IV SCH (11:02)
[2019-12-28] MEDS: SODIUM CHLOR 0.9% PF (SALINE LOCK) 10ML VIAL/SYR IV SCH ×2 (11:03→22:00)
[2019-12-28] MEDS: AMIODARONE HCL 200 MG TAB PO SCH ×2 (11:07→22:00)
[2019-12-28] MEDS: ENOXAPARIN SOD 40 MG/0.4 ML SYRINGE SC SCH (11:08)
[2019-12-28] MEDS: INSULIN LANTUS (GLARGINE) 1 /0.01ml (100units/ml) SC SCH ×2 (11:08→22:56)
--- NOTE | 2019-12-28 15:24 | NUR ---
PATIENT REFUSED PT. MICHAEL GIRON WAS NOTIFIED. Addendum: 12/28/19 at 1525 by MIRNA ALATORRE PTT Amended: Links added.
[2019-12-28] MEDS: HYDROcodone-ACET 5/325MG TAB PO PRN (17:29)
[2019-12-28] MEDS ORDERED: TPN PER PHARMACY IV NR ×10 (20:00)
[2019-12-28] MEDS: ACETAMINOPHEN 325 MG TAB PO PRN (22:58)
[2019-12-29] MEDS: InsuLIN REG 1unit/0.01ml Soln (100units/ml) SC SCH ×4 (00:30→18:09)
--- NOTE | 2019-12-29 00:50 | NUR ---
Respiratory note: TRACH CARE DONE, FOOD NOTED IN SUCTION TUBING. PT HAS A PRODUCTIVE COUGH, LARGE THICK YELLOW, SPUTUM WITH FOOD PRODUCED WITH COUGH. PT REMAINS ON 8L 30% COOL AEROSOL TRACH MASK, WATER REPLACED. SPO2 NOTED AT 98%. RN AT BEDSIDE. PT IN NO RESPIRATORY DISTRESS, WILL CONTINUE TO MONITOR.
[2019-12-29] MEDS: LORazepam 2MG/ML-1ML VIAL IV PRN ×4 (01:14→19:55)
[2019-12-29] MEDS: HYDROcodone-ACET 5/325MG TAB PO PRN ×2 (02:45→16:30)
[2019-12-29] MEDS: VANCOMYCIN 1GM/250ML 250 ML IV SCH ×2 (03:00→14:54)
--- NOTE | 2019-12-29 03:45 | NUR ---
PAGED Patient reports that he is becoming more SOB more frequently. He also states that he is "feeling sick". Page MD to notify about the change in the patient's status.
[2019-12-29] MEDS: PIPERACILLIN-TAZOB 3.375GM 100 ML IV SCH ×3 (04:00→21:36)
[2019-12-29 05:05] VITALS: BP 124/77
[2019-12-29] MEDS: METOCLOPRAMIDE HCL 5MG/ml INJ 2ml VIAL IV SCH ×3 (06:00→21:36)
[2019-12-29] MEDS: ACCU-CHEK COMFORT CURVE STRIP VI SCH ×4 (06:00→18:09)
[2019-12-29] MEDS: Ensure HIGH Protein Vanilla 8oz Bottle PO SCH ×4 (06:00→22:09)
[2019-12-29] MEDS: ACETYLCYSTEINE 10 %(100MG/ML) SOL 4ML NEB SCH ×4 (06:14→23:37)
[2019-12-29] MEDS: ALBUTEROL SULF 2.5 MG/0.5ML(0.5%) NEB SOLN NEB SCH ×4 (06:14→23:37)
[2019-12-29] MEDS: IPRATROPIUM BROM 0.5 MG/2.5ML INH SOL NEB SCH ×4 (06:14→23:37)
--- NOTE | 2019-12-29 06:40 | NUR ---
PAIN ASSESSMENT Per WARP TYING MACHINE TENDER, the patient reported having chest pressure. Upon assessment, the patient c/o 6/10 left sided chest pressure. Vitals: BP 136/74 HR 120 SPO2 96% RR 22 Temp 98.4 F. EKG obtained. MD Paul dove.
--- NOTE | 2019-12-29 07:21 | NUR ---
MD CALL BACK Dr. Miller notified that the patient has been experiencing left sided chest pressure. EKG and vitals were read back to MD. Order to recall Margo Stapleton. He was also notified about the request for PRN breathing treatment. Order for PRN breathing treatment received. Lastly, per RT the patient has food come out of his trach while receiving a breathing treatment. No new order received.
[2019-12-29 08:00] VITALS: BP 119/68
--- NOTE | 2019-12-29 08:00 | NUR ---
DELIA HUMPHREYS. DR CASTELLON WOULD LIKE HIM TO COME BACK TO SEE PATIENT DUE TO CHEST PAIN
[2019-12-29 08:44] LABS: Albumin 2.3 g/dL (3.4-5.0); Calcium 7.6 mg/dL (8.5-10.1); Potassium 3.9 mmol/L (3.5-5.1)
[2019-12-29 08:47] LABS: BUN/Creatinine Ratio 23.6; Phosphorus 2.8 mg/dL (2.5-4.90); Total Protein 7.5 g/dL (6.4-8.2)
--- NOTE | 2019-12-29 08:49 | NUR ---
PAGED RT, PATIENT REQUESTING BREATHING TREATMENT
[2019-12-29] MEDS: ALBUTEROL SULF 2.5 MG/0.5ML(0.5%) NEB SOLN NEB PRN (08:50)
[2019-12-29] MEDS: SOD CHL 0.45% WITH 20MEQ KCL 1,000 ML IV SCH ×2 (09:20→18:10)
[2019-12-29] MEDS: SODIUM CHLOR 0.9% PF (SALINE LOCK) 10ML VIAL/SYR IV SCH ×2 (09:36→22:07)
[2019-12-29] MEDS: DIGOXIN (250MCG/ML) 2 ML AMPULE IV SCH (09:36)
[2019-12-29] MEDS: AMIODARONE HCL 200 MG TAB PO SCH ×2 (09:36→21:38)
[2019-12-29] MEDS: PANTOPRAZOLE 40 MG/10 ML VIAL INJ IV SCH (09:36)
[2019-12-29] MEDS: FLUCONAZOLE 100 MG TAB PO SCH ×2 (09:37→12:37)
[2019-12-29] MEDS: ENOXAPARIN SOD 40 MG/0.4 ML SYRINGE SC SCH (09:37)
--- NOTE | 2019-12-29 09:50 | NUR ---
DR HORN FROM LONG TERM BEDSIDE WITH PATIENT
[2019-12-29] MEDS: INSULIN LANTUS (GLARGINE) 1 /0.01ml (100units/ml) SC SCH ×2 (10:01→22:08)
--- NOTE | 2019-12-29 10:55 | NUR ---
Amparo HUMPHREYS ON UNIT REGARDING PATIENT. NO ORDERS AT THIS TIME.
--- NOTE | 2019-12-29 11:43 | NUR ---
TRACH CARE DONE AT THIS TIME WITHOUT INCIDENT. DEEP TRACHEAL SUCTIONED FOR COPIOUS THICK PALE GREEN RETURN.
[2019-12-29 12:00] VITALS: BP 135/65
[2019-12-29] MEDS ORDERED: IOHEXOL 300 MG/ML 100ML BOTTLE IJ ONE ×2 (12:11→12:39)
--- NOTE | 2019-12-29 15:38 | NUR ---
Nutrition Follow-up note Wt.: 86.500 kg Pt is NPO d/t swallow eval because pt is experiencing difficulty swallowing food. Pt is still receiving parenteral nutrition @65 ml/hr providing 1250 kcal, 100g protein and 850 NPCs. Pt with inadequate total energy aeb 60% to 74% of estimated caloric needs and with adequate protein intake aeb 79-% to 99% of estimated protein needs met from PN support. Noted new TPN order @62 ml/hr for tonight. Will continue to monitor PO intake, PN regimen, skin status, pertinent labs and weight trends. Will f/u in 2 to 3 days. Est. energy needs: 7593-7665 kcals (20-25 kcal/kgBW). Est. protein needs: 101-126 gms/day (1.2-1.5 gm/kgBW) - Prealbumin 9.6 L (12/24/19) Labs 12/25: Na 131 L, Glucose 178 H, Ca 7.6 L, Albumin 2.3 L, Triglycerides 168 H GI: Last BM noted on 12/24/19 per RN doc. Skin: Irwin scale 15, moderate risk, scab healing pressure point to medial sacrum. PES: 1) Altered nutrition related lab values r/t current medical condition aeb hyponatremia, elevated RFTs, hyperglycemia, hypocalcemia, elevated bilirubin severe hypoalbuminemia Recommendations: 1) Suggest tapering and D/C PN if pt can tolerate 60% energy needs from PO intake. 2) Continue current plan of care.
[2019-12-29 16:45] VITALS: BP 146/86
--- NOTE | 2019-12-29 18:25 | NUR ---
RT NOTE: PT ON TRACH COLLAR EATING DINNER, HAVING COUGHING EPISODES AND COUGHING FOOD BACK UP THROUGH MOUTH AND TRACH. PT DENIES SOB AND WANTS TO CONTINUE EATING. PT DOESN'T WANT TO BE SUCTIONED OR BREATHING TX AT THIS TIME. PT EDUCATED ON RISK AND KNOW AGREED TO STOP EATING. SUCTIONING COPIOUS AMOUNT OF SEMI THICK SILVER SECRETION WITH PIECES OF FOOD. RN NOTIFIED. MED NEB TX GIVEN VIA TRACH COLLAR AND TRACH CARE DONE AT THIS TIME.
[2019-12-29] MEDS: METOPROLOL TARTRATE 1MG/1ML-5ML VIAL IV PRN (18:36)
--- NOTE | 2019-12-29 18:45 | NUR ---
PAGED DR CASTELLON, PATIENTS DIET IS CURRENTLY A SOFT DIET, SWALLOW EVAL WAS COMPLETE ON 14 AND RECOMMENDED PUREED DIET. PATIENT IS UNABLE TO EAT THE SOFT DIET FOOD BEING SUPPLIED. WOULD LIKE ORDERS TO CHANGE TO PUREED.
[2019-12-29] MEDS ORDERED: TPN PER PHARMACY IV NR ×21 (20:00)
--- NOTE | 2019-12-29 20:00 | NUR ---
Opening Shift Note Assumed care of patient, awake and alert. No S/S of distress/SOB or pain. Instructed on POC and to call for assist PRN, will continue to monitor for changes Q1hr and PRN.With tracheostomy vent on 8liters oxygen.
[2019-12-29 21:57] VITALS: BP 127/74
[2019-12-30] MEDS: LORazepam 2MG/ML-1ML VIAL IV PRN ×3 (00:27→18:14)
[2019-12-30] MEDS: ACCU-CHEK COMFORT CURVE STRIP VI SCH ×4 (00:28→18:00)
[2019-12-30] MEDS: InsuLIN REG 1unit/0.01ml Soln (100units/ml) SC SCH ×4 (00:29→18:00)
[2019-12-30] MEDS: ONDANSETRON HCL 4 MG/2 ML VIAL IV PRN (00:38)
[2019-12-30] MEDS: VANCOMYCIN 1GM/250ML 250 ML IV SCH ×2 (02:46→14:55)
[2019-12-30] MEDS: PIPERACILLIN-TAZOB 3.375GM 100 ML IV SCH ×3 (04:36→20:07)
--- NOTE | 2019-12-30 04:58 | NUR ---
RT NOTE: PAGED TO ROOM FOR PT SUCTIONING. PT SUCTION THROUGH TRACH AND GAUZE REPLACED. NO DISTRESS NOTED
[2019-12-30 05:24] LABS: Basophils # (auto) 0 10 ^3/uL (0-0.2); Basophils % (auto) 0.3 % (0.0-2.0); Eosinophils # (auto) 0.1 10 ^3/uL (0-0.8); Eosinophils % (auto) 0.5 % (0.0-7.0); Hematocrit 27.1 % (41.0-53.0); Hemoglobin 9.1 g/dL (13.5-17.5); Lymphocytes # (auto) 1.2 10 ^3/uL (0.4-5.4); Lymphocytes % (auto) 11.6 % (10.0-50.0); Mean Corpuscular Hgb Conc. 33.6 g/dL (32.0-36.0); Mean Corpuscular Volume 86.5 fL (80.0-100.0); Monocytes # (auto) 0.6 10 ^3/uL (0-1.3); Monocytes % (auto) 5.9 % (0.0-12.0); Neutrophils # (auto) 8.8 10 ^3/uL (1.6-8.6); Neutrophils % (auto) 81.7 % (37.0-80.0); Nucleated Red Blood Cells % 0.1 %; Platelet Count (auto) 378 10^3/uL (140-450); Red Blood Cells 3.14 10^6/uL (4.5-5.90); Red Cell Distribution Width 19.6 % (11.8-14.3); White Blood Cell 10.8 10^3/uL (4.4-10.8)
[2019-12-30 05:32] VITALS: BP 127/76
[2019-12-30] MEDS: METOCLOPRAMIDE HCL 5MG/ml INJ 2ml VIAL IV SCH ×3 (05:38→22:42)
[2019-12-30 05:42] LABS: Albumin 2.2 g/dL (3.4-5.0); Calcium 7.6 mg/dL (8.5-10.1)
[2019-12-30 05:46] LABS: BUN/Creatinine Ratio 25.6; Total Protein 7.4 g/dL (6.4-8.2)
[2019-12-30] MEDS: IPRATROPIUM BROM 0.5 MG/2.5ML INH SOL NEB SCH ×3 (05:54→18:45)
[2019-12-30] MEDS: ALBUTEROL SULF 2.5 MG/0.5ML(0.5%) NEB SOLN NEB SCH ×3 (05:54→18:45)
[2019-12-30] MEDS: ACETYLCYSTEINE 10 %(100MG/ML) SOL 4ML NEB SCH ×3 (05:55→18:45)
[2019-12-30] MEDS: Ensure HIGH Protein Vanilla 8oz Bottle PO SCH ×4 (06:00→22:43)
--- NOTE | 2019-12-30 06:06 | NUR ---
rn requested suction unable to find suction kits, they found them rt suctioned pt with tx large return of thick yellow replaced trach collor was saturated with sputum
--- NOTE | 2019-12-30 06:51 | NUR ---
Paged Dr. Miller for puree diet, awaiting response.
--- NOTE | 2019-12-30 07:30 | NUR ---
RECEIVED REPORT FROM NIGHT NURSE. PATIENT RESTING IN BED, TRACH CONNECTED TO 8L O2. 2 GUARDS AT BEDSIDE. SHACKLES TO BILATERAL ANKLES, SKIN INTACT.
--- NOTE | 2019-12-30 07:35 | NUR ---
Report given to Marilyn Golden, patient is resting no distress.
[2019-12-30 09:00] VITALS: BP 107/69
[2019-12-30] MEDS: INSULIN LANTUS (GLARGINE) 1 /0.01ml (100units/ml) SC SCH ×2 (10:00→22:00)
[2019-12-30] MEDS: SODIUM CHLOR 0.9% PF (SALINE LOCK) 10ML VIAL/SYR IV SCH ×2 (12:08→22:42)
[2019-12-30] MEDS: PANTOPRAZOLE 40 MG/10 ML VIAL INJ IV SCH (12:08)
[2019-12-30] MEDS: DIGOXIN (250MCG/ML) 2 ML AMPULE IV SCH (12:08)
[2019-12-30] MEDS: AMIODARONE HCL 200 MG TAB PO SCH ×2 (12:09→22:42)
[2019-12-30] MEDS: FLUCONAZOLE 100 MG TAB PO SCH (12:10)
[2019-12-30] MEDS: ENOXAPARIN SOD 40 MG/0.4 ML SYRINGE SC SCH (12:11)
[2019-12-30 12:45] LABS: Magnesium 2.1 mg/dL (1.6-2.6); Phosphorus 3.5 mg/dL (2.5-4.90)
[2019-12-30 12:46] VITALS: BP 131/76
[2019-12-30] MEDS: SOD CHL 0.9%/ KCL 20MEQ 1,000 ML IV SCH (14:54)
[2019-12-30] MEDS: ALBUTEROL SULF 2.5 MG/0.5ML(0.5%) NEB SOLN NEB PRN (16:00)
[2019-12-30] MEDS ORDERED: SODIUM CHLORIDE 0.9 % NEB SOLN 3ML NEB ONE (16:07)
[2019-12-30 17:00] VITALS: BP 143/76
--- NOTE | 2019-12-30 19:34 | NUR ---
RECEIVED CALL FROM LABORATORY FOR POSITIVE BLOOD CULTURE RESULT OF YEAST.
--- NOTE | 2019-12-30 19:47 | NUR ---
PAGED FOR RESULT OF POSITIVE BLOOD CULTURE. AWAITING CALLBACK
[2019-12-30] MEDS ORDERED: TPN PER PHARMACY IV NR ×10 (20:00)
[2019-12-30 20:15] VITALS: BP 143/76
[2019-12-30] MEDS: ACETAMINOPHEN 325 MG TAB PO PRN (20:46)
--- NOTE | 2019-12-30 21:14 | NUR ---
2ND CALL PLACED TO DR. CASTELLON
--- NOTE | 2019-12-30 21:36 | NUR ---
Respiratory note: SPOKE TO RN AT THIS TIME ABOUT ABG RESULTS. SPOKE TO RN ABOUT POSSIBLY PLACING PT ON VENT TO ASSIST WITH VENTILATORY SUPPORT. PT SOB AT THIS TIME, RR 38-42, PULSE OX 93% ON 35% CM VIA TRACH COLLAR. PT STATES HE IS SOB, ACCESSORY MUSCLE USE NOTED. WAS WITH RN AT THIS TIME WHEN MD WAS CALLED. NO ANSWER BY .
--- NOTE | 2019-12-30 21:44 | NUR ---
CALLED BACK WITH ABG RESULTS. NO FURTHER ORDERS RECEIVED.
[2019-12-30 22:00] VITALS: BP 136/74
[2019-12-31] MEDS: ACCU-CHEK COMFORT CURVE STRIP VI SCH ×4 (00:23→18:05)
--- NOTE | 2019-12-31 02:30 | NUR ---
Communication Patient given communication board to assist in communicating. Patient reviewed board and understands concept.
--- NOTE | 2019-12-31 02:31 | NUR ---
RT paged Patient requested respiratory treatment for shortness of breath.
[2019-12-31] MEDS: VANCOMYCIN 1GM/250ML 250 ML IV SCH ×2 (02:56→16:10)
[2019-12-31] MEDS: ALBUTEROL SULF 2.5 MG/0.5ML(0.5%) NEB SOLN NEB PRN (03:37)
--- NOTE | 2019-12-31 03:39 | NUR ---
RT AT BEDSIDE
[2019-12-31] MEDS: PIPERACILLIN-TAZOB 3.375GM 100 ML IV SCH ×3 (04:10→17:56)
[2019-12-31] MEDS: HYDROcodone-ACET 5/325MG TAB PO PRN ×3 (04:44→20:47)
[2019-12-31 05:00] VITALS: BP 139/79
[2019-12-31 05:22] LABS: Albumin 2.4 g/dL (3.4-5.0); Calcium 7.8 mg/dL (8.5-10.1); Magnesium 2.4 mg/dL (1.6-2.6); Potassium 3.6 mmol/L (3.5-5.1)
[2019-12-31 05:27] LABS: Bilirubin, Total 1.1 mg/dL (0.2-1.0); Phosphorus 3.3 mg/dL (2.5-4.90); Pre Albumin 6.2 mg/dL (20.0-40.0); Total Protein 7.9 g/dL (6.4-8.2)
[2019-12-31] MEDS: SOD CHL 0.9%/ KCL 20MEQ 1,000 ML IV SCH (05:50)
[2019-12-31] MEDS: Ensure HIGH Protein Vanilla 8oz Bottle PO SCH ×4 (06:00→22:24)
[2019-12-31] MEDS: METOCLOPRAMIDE HCL 5MG/ml INJ 2ml VIAL IV SCH ×3 (06:20→22:23)
[2019-12-31] MEDS: LORazepam 2MG/ML-1ML VIAL IV PRN ×3 (06:31→20:46)
[2019-12-31] MEDS: InsuLIN REG 1unit/0.01ml Soln (100units/ml) SC SCH ×4 (06:32→18:06)
[2019-12-31] MEDS: ACETYLCYSTEINE 10 %(100MG/ML) SOL 4ML NEB SCH ×3 (06:40→18:23)
[2019-12-31] MEDS: IPRATROPIUM BROM 0.5 MG/2.5ML INH SOL NEB SCH ×3 (06:40→18:24)
[2019-12-31] MEDS: ALBUTEROL SULF 2.5 MG/0.5ML(0.5%) NEB SOLN NEB SCH ×3 (06:40→18:23)
[2019-12-31 09:00] VITALS: BP 128/74
--- NOTE | 2019-12-31 09:30 | NUR ---
PATIENT TEMPERATURE 100.8. COOLING MEASURES APPLIED. PATIENT ALSO GIVEN TYLENOL.
[2019-12-31] MEDS: PANTOPRAZOLE 40 MG/10 ML VIAL INJ IV SCH (09:43)
[2019-12-31] MEDS: SODIUM CHLOR 0.9% PF (SALINE LOCK) 10ML VIAL/SYR IV SCH ×2 (09:43→22:23)
[2019-12-31] MEDS: DIGOXIN (250MCG/ML) 2 ML AMPULE IV SCH (09:43)
[2019-12-31] MEDS: FLUCONAZOLE 100 MG TAB PO SCH (09:43)
[2019-12-31] MEDS: AMIODARONE HCL 200 MG TAB PO SCH ×2 (09:43→22:24)
[2019-12-31] MEDS: INSULIN LANTUS (GLARGINE) 1 /0.01ml (100units/ml) SC SCH ×2 (09:46→22:25)
[2019-12-31] MEDS: ACETAMINOPHEN 325 MG TAB PO PRN ×2 (09:57→17:30)
[2019-12-31] MEDS: ENOXAPARIN SOD 40 MG/0.4 ML SYRINGE SC SCH ×2 (10:00→11:03)
--- NOTE | 2019-12-31 10:40 | NUR ---
WOUND CARE NOTE: Wound care in to see patient reevaluation of sacral wounds. Patient is sitting at bedside commode. Assisted nurse aide to clean patient and transfer patient back in bed. Patient continue resting on air bed in Rm. 201. Patient is on O2 via trac collar. Patient is awake, alert and able to communicate by mouthing words. Patient appears to be no pain using Conde Abdul Faces Pain Scale. He's able to assist in turning and repositioning and his Irwin score is 13. Patient's R medial sacrum display 3x0.8cm open partial thickness wound. It seems that scabbed/hyperkeratotic skin came off. Wound is red with pink/red salvador wound, no drainage/odor noted. Skin erosion/MASD to lower sacral/buttock is much improved. Salvador care given; new photograph of sacral wound are taken for reference;applied Z Guard cream and covered sacrum with Opti foam gentle dressing. Patient tolerated well, repositioned for comfort on his back with head of bed elevated. Guards at bedside. RECOMMENDATION: Continuation of all wound care orders prescribed by MD, continue with skin/wound plan of care, continue monitoring by wound care while patient is hospitalized. Addendum: 12/31/19 at 1308 by Florinda Trujillo RN Amended: Links added.
--- NOTE | 2019-12-31 11:46 | NUR ---
SPOKE TO Nita ZARATE REGARDING PATIENT STATUS. INFORMED OF PATIENT SPIKING TEMPS AND RESULTS FROM CHEST X RAY AND CHEST CT. INFORMED PATIENT IS ON 10L TRACH COLLAR AND THAT HE HAS AN INCREASED RESPIRATORY RATE. NO NEW ORDERS RECEIVED FROM Nita
--- NOTE | 2019-12-31 12:20 | NUR ---
SPOKE TO Nita HUMPHREYS REGARDING PATIENT STATUS. INFORMED OF PATIENT SPIKING TEMPS AND RESULTS FROM CHEST X RAY AND CHEST CT. INFORMED PATIENT IS ON 10L TRACH COLLAR AND THAT HE HAS AN INCREASED RESPIRATORY RATE AND COOL EXTREMETIES. ALS INFORMED PATIENT HAS NOT HAD A BOWEL MOVEMENT IN 7 DAYS. INSTRUCTED TO CALL Nita CABRALES.
--- NOTE | 2019-12-31 12:25 | NUR ---
SPOKE TO Carly ABRAHAM REGARDING PATIENT STATUS. Nita CABRALES INSTRUCTED THIS RN TO PREPARE PATIENT FOR THORACENTESIS AT BEDSIDE. WILL ENTER ORDERS.
[2019-12-31 13:00] VITALS: BP 112/63
--- NOTE | 2019-12-31 13:10 | NUR ---
REGARDING THORACENTESIS. Nita CABRALES AT BEDSIDE FOR THORACENTESIS WITH COW TRIMMER. PATIENT SAT-UP. PATIENT PRE VITALS: BP:118/61 HR:107 O2: 96%. DURING PROCEDURE PATIENT BEGAN TO HAVE RUTH RED BLOOD FROM TRACH COLLAR. Nita CABRALES AT THIS POINT STOPPED PROCEDURE AND PATIENT LAID BACK DOWN HIGH MCCARTY. PATIENT SUCTIONED ORALLY AND VIA TRACH PER Nita DIRECTIONS. BLEEDING STOPPED. POST VITALS: 122/63 HR:114 02:94%.
[2019-12-31] MEDS ORDERED: LIDOCAINE 1% (LOCAL ANESTH.) PF 5ml SDV ONE (13:23)
--- NOTE | 2019-12-31 13:25 | NUR ---
Override Lidocaine/Xylocaine 1% to remove from the Pyxis as ordered by Dr. Coleman. Endorsed the medication to MICHAEL Gillespie. Dr. Coleman at bedside for the procedure. Pharmacist made aware. Pharmacist said the order has to be put in. MICHAEL Gillespie to put in the order. Male security at bedside.
--- NOTE | 2019-12-31 14:00 | NUR ---
COOLING MEASURES APPLIED.
--- NOTE | 2019-12-31 14:30 | NUR ---
ROUNDING: PATIENT HAS AN EPISODE OF COUGHING, SMALL AMOUNT OF RED BLOOD EXPECTORATED FROM TRACH. CLEANED UP AND SUCTIONED. PATIENT DENIES ANY DIZZINESS AT THIS TIME.
[2019-12-31] MEDS ORDERED: LIDOCAINE 1% HCL (LOCAL ANESTH.) INJ 20ML MDV ID ONE ×2 (15:00→15:30)
[2019-12-31] MEDS: MICAFUNGIN SODIUM 100 MG in SODIUM CHL 0.9% 100 ML IV SCH (16:21)
[2019-12-31 17:00] VITALS: BP 126/76
--- NOTE | 2019-12-31 19:48 | NUR ---
PATIENT WAS SATTING AT 76% AND TACHYPNEIC. I PROCEEDED TO SUCTION PATIENT HOWEVER OXYGEN SATURATION ONLY IMPROVED TO 79%. I PAGED FOR RT TO COME AND THEY SUCTIONED PATIENT WITH SALINE. OXYGEN IMPROVED TO 97% ON 10 L VIA TRACH COLLAR. PATIENT HAD BLOODY CONTENTS REMOVED. WILL CONTINUE TO MONITOR.
[2019-12-31] MEDS ORDERED: TPN PER PHARMACY IV NR ×10 (20:00)
[2019-12-31 20:55] LABS: INR 1.33 (0.9-1.15); Partial Thromboplastin Time 33.6 sec (23.64-32.05)
[2019-12-31 21:33] VITALS: BP 104/60
[2020-01-01] VITALS (42 sets, daily range): BP systolic 78–163; BP diastolic 48–88
[2020-01-01] MEDS: PIPERACILLIN-TAZOB 3.375GM 100 ML IV SCH ×4 (00:19→18:36)
[2020-01-01] MEDS: ACCU-CHEK COMFORT CURVE STRIP VI SCH ×4 (00:33→17:36)
[2020-01-01] MEDS: InsuLIN REG 1unit/0.01ml Soln (100units/ml) SC SCH ×4 (00:33→17:42)
[2020-01-01] MEDS: LORazepam 2MG/ML-1ML VIAL IV PRN ×2 (03:02→14:12)
[2020-01-01] MEDS: VANCOMYCIN 1GM/250ML 250 ML IV SCH ×2 (03:02→17:04)
--- NOTE | 2020-01-01 03:05 | NUR ---
PATIENT SATTING AT 72%. SUCTIONED OUT THICK PINK TINGED MUCUS. POST SUCTIONING OXYGEN SATURATION WAS AT 96% ON 10L VIA TRACH COLLAR. WILL CONTINUE TO MONITOR.
--- NOTE | 2020-01-01 04:03 | NUR ---
RT NOTE: TRACH CARE PERFORMED, PT TOLERATED WELL. PT HAS 8.0SHILEY DEFLATED CUFF. SECURED WITH PANDA. PT HAVING SILVER BLOOD TINGED DRAINAGE. INNER CANULA CLEANED AND DRAINAGE SPONGES REPLACED. SUTURES REMAIN IN PLACE. PT ON COOL AEROSOL TRACH COLLAR 10LPM @.40 FIO2. SPO2 95% HR 110, RR 32, BS COARSE.
[2020-01-01] MEDS: ACETAMINOPHEN 325 MG TAB PO PRN ×2 (04:37→23:55)
--- NOTE | 2020-01-01 04:41 | NUR ---
PATIENT HAS TEMPERATURE OF 103.0. COOLING MEASURES INITIATED AND TYLENOL GIVEN. WILL CONTINUE TO MONITOR.
[2020-01-01 05:42] LABS: Albumin 2.1 g/dL (3.4-5.0); Calcium 7.7 mg/dL (8.5-10.1); Magnesium 2.3 mg/dL (1.6-2.6); Potassium 3.9 mmol/L (3.5-5.1)
--- NOTE | 2020-01-01 05:52 | NUR ---
THE GROUP DIRECTOR (MS. LAMAS) FROM [facility] CALLED TO GET AN UPDATE ON THE PATIENT.
[2020-01-01 05:58] LABS: Bilirubin, Total 1.2 mg/dL (0.2-1.0); Phosphorus 3.3 mg/dL (2.5-4.90); Total Protein 7.7 g/dL (6.4-8.2)
[2020-01-01] MEDS: Ensure HIGH Protein Vanilla 8oz Bottle PO SCH ×2 (06:00→12:00)
[2020-01-01] MEDS: METOCLOPRAMIDE HCL 5MG/ml INJ 2ml VIAL IV SCH ×3 (06:20→22:12)
--- NOTE | 2020-01-01 06:50 | NUR ---
SPOKE WITH DR. GLORIA FROM THE [facility]. I GAVE HIM AN UPDATE ON THE PATIENT HE REQUESTED.
[2020-01-01] MEDS: ALBUTEROL SULF 2.5 MG/0.5ML(0.5%) NEB SOLN NEB SCH ×3 (07:30→21:37)
[2020-01-01] MEDS: ACETYLCYSTEINE 10 %(100MG/ML) SOL 4ML NEB SCH ×3 (07:30→18:00)
[2020-01-01] MEDS: IPRATROPIUM BROM 0.5 MG/2.5ML INH SOL NEB SCH ×3 (07:30→21:37)
[2020-01-01] MEDS ORDERED: LIDOCAINE 2%HCL (LOCAL ANESTH.) INJ 20ML MDV ONE (09:11)
[2020-01-01] MEDS: SOD CHL 0.9%/ KCL 20MEQ 1,000 ML IV SCH ×2 (09:56→17:53)
[2020-01-01] MEDS: DIGOXIN (250MCG/ML) 2 ML AMPULE IV SCH (09:58)
[2020-01-01] MEDS: PANTOPRAZOLE 40 MG/10 ML VIAL INJ IV SCH (09:58)
[2020-01-01] MEDS: ENOXAPARIN SOD 40 MG/0.4 ML SYRINGE SC SCH (10:00)
[2020-01-01] MEDS: SODIUM CHLOR 0.9% PF (SALINE LOCK) 10ML VIAL/SYR IV SCH ×2 (10:00→22:14)
[2020-01-01] MEDS: AMIODARONE HCL 200 MG TAB PO SCH ×2 (10:00→22:19)
[2020-01-01] MEDS: INSULIN LANTUS (GLARGINE) 1 /0.01ml (100units/ml) SC SCH ×2 (10:25→22:15)
--- NOTE | 2020-01-01 11:30 | NUR ---
CONTINUE OF V/S PATIENT TEMP 97.9 ORAL.
--- NOTE | 2020-01-01 11:30 | NUR ---
Patient respirations are 38 labored and shallow, lung sounds are crackled patient is pale in color. Patient has a wet cough patient is SOB. V/S 102 hr,38rr 92% o2 on 10L 40 % oxygen,127/78. RT paged to bedside. Doctor Paul paged.
[2020-01-01] MEDS: MICAFUNGIN SODIUM 100 MG in SODIUM CHL 0.9% 100 ML IV SCH (12:00)
--- NOTE | 2020-01-01 12:00 | NUR ---
RECEIVED CALL BACK FROM DOCTOR CASTELLON. UPDATED ON PATIENTS STATUS NEW ORDERS RECEIVED SEE EMR FOR ORDERS.
--- NOTE | 2020-01-01 12:30 | NUR ---
Patient [facility] bed assignment given room [id number] [address].
--- NOTE | 2020-01-01 13:02 | NUR ---
Report given to josesito MICHAEL Dunne.
--- NOTE | 2020-01-01 13:40 | NUR ---
Patient taken to [facility] RT at bedside for transport.
[2020-01-01] MEDS ORDERED: NOREPINEPHRINE 8 MG/250ML KIT 250 ML IV ONE (14:23)
--- NOTE | 2020-01-01 14:28 | NUR ---
PAGED: Dr. Miller paged regarding decline in patient condition, patient hypotensive and tachypneic, await return page for further orders.
[2020-01-01] MEDS: NOREPINEPHRINE 8 MG/250ML KIT 250 ML IV SCH (14:40)
[2020-01-01] MEDS: fentaNYL Drip 2500mCg/250mlNS 250 ML IV SCH (14:40)
--- NOTE | 2020-01-01 14:40 | NUR ---
MD PHONE CALL: Received return call from Dr. Scales, updated on patient situation including tachypnea orders received.
--- NOTE | 2020-01-01 14:41 | NUR ---
STAFF INTERPRETER CALLED DR CABRALES - INFORMED OF PATIENT TRANSFER TO [facility] FOR RESP 35-40 AND LABORED, INABILITY TO LIE FLAT ON CT TABLE FOR THORACENTESIS, ELEVATED TEMP 103 AND ORDERS RECEIVED PER DR CASTELLON - REQUESTS DR ZARATE BE NOTIFIED - STAFF INTERPRETER PHONED BIANKA RODRIGUEZ ON CENTRAL WING AND ASKED THAT SHE NOTIFY DR ZARATE OF TRANSFER PER DR CABRALES'S REQUEST, STATES SHE WILL NOTIFY DR ZARATE.
[2020-01-01] MEDS ORDERED: fentaNYL Drip 2500mCg/250mlNS 250 ML IV ONE (14:44)
--- NOTE | 2020-01-01 14:45 | NUR ---
RETURNED PAGE: Spoke with Dr. Miller, updated on patient's declining condition. Orders received for vasopressor support. Discussed current IV fluids, does not wish to change at this time.
--- NOTE | 2020-01-01 14:45 | NUR ---
CALLED DOCTOR RIOS TO UPDATE MD ON PATIENTS TRANSFER AND RESPIRATORY STATUS. MESSAGE LEFT AWAITING CALL BACK. Addendum: 01/01/20 at 1515 by BIANKA VILLAGOMEZ RN RN SPOKE WITH [facility] ,PER RN THEY HAVE ALREADY SPOKE WITH MD.
[2020-01-01] MEDS: PROPOFOL 100 ML IV SCH (15:39)
--- NOTE | 2020-01-01 16:41 | NUR ---
URINE CULTURE COMPLETED. LAB CALLED STATING THEY HAVE URINE AND CULTURE IS BEING PROCESSED.
--- NOTE | 2020-01-01 17:00 | NUR ---
NEGATIVE COVID RESULTED.
--- NOTE | 2020-01-01 17:27 | NUR ---
OPERATIONS ASST PAGED MD PAGED TO NOTIFY PATIENT HAS A DEFLATED CUFF VIA TRACHEOSTOMY AFTER SLIGHT TURN TO RIGHT. AIR AUSCULTATED, PATIENTS TACHYPNEIC 30-40. TV NOTED LOW AT 10-15. PATIENT PLACED IN SUPINE POSITION. TV NOTED 150-170'S. POX REMAINING 95-98% AWAITING CALLBACK.
--- NOTE | 2020-01-01 17:43 | NUR ---
MD CALLED BACK NEW ORDER IN PLACE FOR TRACHEOSTOMY TO BE CHANGED AT BEDSIDE. R.T AWARE. ORDER TO D/C TPN. AND PICC LINE TO BE REMOVED AND CHANGED TO CENTRAL LINE PLACEMENT AT BEDSIDE.
--- NOTE | 2020-01-01 18:18 | NUR ---
RT NOTE RT ASSISTED DR GRIDER WITH TRACH CHANGE. PT OLD TRACH HAD A BLOWN CUFF. TRACH CHANGE WAS COMPLETED WITHOUT INCIDENT. PT HAS A SHILEY SIZE 8.0. PT BACK ON VENT AND TOLERATING SETTINGS AND NEW TRACH WELL.
--- NOTE | 2020-01-01 18:20 | NUR ---
TRACHEOSTOMY CHANGED BY MD AT BEDSIDE 8.0 TRACHEOSTOMY INSERTED BY MD AT BEDSIDE WITH R.T. PT TOLERATED WELL/ POX REMAINED 99-100% ON 100% FI02.
--- NOTE | 2020-01-01 18:29 | NUR ---
BEDSIDE PROCEDURE PERFORMED MD INSERTED CENTRAL LINE TO RIGHT IJ. PT TOLERATED WELL. F/U CXR IN PLACE.
[2020-01-01] MEDS: MIDAZOLAM DRIP 50 mg/50mL 50 ML IV SCH (19:00)
--- NOTE | 2020-01-01 19:00 | NUR ---
REPORT REPORT GIVEN TO NOC NURSE. UPDATED ON PLAN OF CARE AND PENDING ORDERS TO BE CARRIED OUT. PATIENT TO BE TRANSFERRED TO ICU. PATIENT TOLERATING VENTILATOR WELL AT THIS TIME.
--- NOTE | 2020-01-01 19:10 | NUR ---
CENTRAL LINE PER DR. GRIDER, CHEST XRAY NOTED AND CENTRAL LINE OK TO USE. Addendum: 01/01/20 at 2109 by Linda Gupta RN time wrong entry cancelled
--- NOTE | 2020-01-01 19:30 | NUR ---
CENTRAL LINE PER DR. GRIDER, CHEST XRAY NOTED AND CENTRAL LINE OK TO USE.
--- NOTE | 2020-01-01 19:55 | NUR ---
TRANSFER to ICU from [facility] on vent MIGULEJOEL transferred to ICU on brim ironer hand, with tracheostomy and being bagged by Respiratory Therapist. Patient is connected to mechanical ventilator by therapist, ARAVIND at bedside. Patient connected to ICU monitoring, weighed by bedscale, oriented to Linda cortes RN, unit, ventilator and sedation. [facility] guards at bedside
[2020-01-01] MEDS ORDERED: TPN PER PHARMACY IV NR ×10 (20:00)
--- NOTE | 2020-01-01 20:00 | NUR ---
ORDER Dr. Scales orders to dc Propofol and TPN. Propofol to switch to Versed
--- NOTE | 2020-01-01 20:30 | NUR ---
Nasogastric tube insertion Patient informed of NGT insertion. NGT inserted per MD order. Placement verified by aspiration of stomach contents and auscultation.
--- NOTE | 2020-01-01 20:35 | NUR ---
CALLED RADIOLOGY FOR XRAY REPORT HE SAID HE WILL INFORM THE RADIOLOGIST
[2020-01-02] VITALS (104 sets, daily range): BP systolic 80–153; BP diastolic 49–81
[2020-01-02] MEDS: MIDAZOLAM DRIP 50 mg/50mL 50 ML IV SCH ×2 (00:21→15:42)
[2020-01-02] MEDS: PIPERACILLIN-TAZOB 3.375GM 100 ML IV SCH ×4 (00:23→18:22)
[2020-01-02] MEDS: ACCU-CHEK COMFORT CURVE STRIP VI SCH ×4 (00:25→18:30)
--- NOTE | 2020-01-02 00:30 | NUR ---
FEVER 0000HRS - PATIENT IS SHIVERING, TEMP CHECKED ORALLY = 101F ICE PACKS APPLIED, COLD COMPRESS ON FOREHEAD TYLENOL GIVEN 0015HRS - RECTAL PROBE INSERTED = 104F COLD SPONGE BATH DONE. COOLING BLANKET APPLIED 0030HRS - TEMP REMAINED 104F
[2020-01-02] MEDS: NOREPINEPHRINE 8 MG/250ML KIT 250 ML IV SCH ×3 (00:34→21:26)
--- NOTE | 2020-01-02 01:00 | NUR ---
TEMP TEMP 103.6F - KEPT ON COOLING BLANKET
--- NOTE | 2020-01-02 02:30 | NUR ---
HYGIENE SPONGE BATH DONE LINENS CHANGED
--- NOTE | 2020-01-02 04:00 | NUR ---
TEMP TEMP 99F - COOLING BLANKET OFF WILL CONTINUE TO MONITOR
[2020-01-02 04:05] LABS: Basophils # (auto) 0.1 10 ^3/uL (0-0.2); Basophils % (auto) 0.3 % (0.0-2.0); Eosinophils # (auto) 0.3 10 ^3/uL (0-0.8); Eosinophils % (auto) 1.6 % (0.0-7.0); Hematocrit 28.2 % (41.0-53.0); Hemoglobin 9.1 g/dL (13.5-17.5); Lymphocytes % (auto) 4.8 % (10.0-50.0); Mean Corpuscular Hgb Conc. 32.4 g/dL (32.0-36.0); Mean Corpuscular Volume 86.4 fL (80.0-100.0); Monocytes # (auto) 0.4 10 ^3/uL (0-1.3); Neutrophils # (auto) 18.4 10 ^3/uL (1.6-8.6); Neutrophils % (auto) 91.3 % (37.0-80.0); Platelet Count (auto) 350 10^3/uL (140-450); Red Blood Cells 3.26 10^6/uL (4.5-5.90); White Blood Cell 20.2 10^3/uL (4.4-10.8)
[2020-01-02] MEDS: VANCOMYCIN 1GM/250ML 250 ML IV SCH ×2 (04:12→15:42)
[2020-01-02 04:29] LABS: Potassium 3.7 mmol/L (3.5-5.1)
--- NOTE | 2020-01-02 04:35 | NUR ---
REPORT REPORT GIVEN TO MICHAEL PANDYA
[2020-01-02 04:49] LABS: Albumin 1.9 g/dL (3.4-5.0); Bilirubin, Total 1.5 mg/dL (0.2-1.0); Total Protein 6.7 g/dL (6.4-8.2)
[2020-01-02] MEDS: ALBUTEROL SULF 2.5 MG/0.5ML(0.5%) NEB SOLN NEB SCH ×3 (06:01→18:10)
[2020-01-02] MEDS: ACETYLCYSTEINE 10 %(100MG/ML) SOL 4ML NEB SCH ×3 (06:01→18:10)
[2020-01-02] MEDS: IPRATROPIUM BROM 0.5 MG/2.5ML INH SOL NEB SCH ×3 (06:01→18:10)
[2020-01-02] MEDS: METOCLOPRAMIDE HCL 5MG/ml INJ 2ml VIAL IV SCH ×3 (06:29→21:38)
[2020-01-02] MEDS: SOD CHL 0.9%/ KCL 20MEQ 1,000 ML IV SCH (06:38)
[2020-01-02] MEDS: InsuLIN REG 1unit/0.01ml Soln (100units/ml) SC SCH ×4 (06:58→18:30)
--- NOTE | 2020-01-02 07:50 | NUR ---
ASSESSMENT COMPLETED BLOOD SUGAR 88.
--- NOTE | 2020-01-02 08:28 | NUR ---
SPOKE WITH DR SAMRA FULLER GAVE ORDER TO TRANSFER TO HIGHER LEVEL OF CARE FOR THORACIC PROCEDURE. PAGED DR CASTELLON AND WILL CALL DR CABRALES BACK.
[2020-01-02] MEDS: fentaNYL Drip 2500mCg/250mlNS 250 ML IV SCH (09:00)
--- NOTE | 2020-01-02 09:26 | NUR ---
PAGED DR CASTELLON FOR SECOND TIME REGARDING DR CABRALES ORDER TO HIGHER LEVEL OF CARE
--- NOTE | 2020-01-02 09:27 | NUR ---
I spoke with patient's primary nurse Robert regarding order to transfer to higher level of care-per Robert she is waiting to get a hold of Dr. Miller regarding Dr. Coleman's order to transfer-she will call me back with specific type of surgery/procedure that patient is requiring. I called [facility] and spoke with Emily, she will have renal case manager Estela call me back regarding the transfer order.
--- NOTE | 2020-01-02 09:40 | NUR ---
SPOKE WITH DR CABRALES, DR QUINTANILLA RN SPOKE WITH DR CASTELLON AND MADE AWARE OF NEED FOR TRANSFER TO [facility] FOR EXTENSIVE CHEST WALL RESECTION OF RESIDUAL RECURRENT EMPYEMA. [facility] IN CASE MANAGEMENT AWARE AND WORKING ON TRANSFER.
[2020-01-02] MEDS: INSULIN LANTUS (GLARGINE) 1 /0.01ml (100units/ml) SC SCH ×2 (10:00→21:39)
[2020-01-02] MEDS: AMIODARONE HCL 200 MG TAB PO SCH ×2 (10:09→21:38)
[2020-01-02] MEDS: SODIUM CHLOR 0.9% PF (SALINE LOCK) 10ML VIAL/SYR IV SCH ×2 (10:09→21:45)
[2020-01-02] MEDS: ENOXAPARIN SOD 40 MG/0.4 ML SYRINGE SC SCH (10:09)
[2020-01-02] MEDS: PANTOPRAZOLE 40 MG/10 ML VIAL INJ IV SCH (10:09)
[2020-01-02] MEDS: DIGOXIN (250MCG/ML) 2 ML AMPULE IV SCH (10:11)
--- NOTE | 2020-01-02 10:25 | NUR ---
I spoke with [facility] Auto Service Advisor Estela [phone] regarding the transfer to higher level of care request. Per Estela the only other facility they contract with is [facility]. I called [facility] Transfer Center [phone] and spoke with Bhavna-she confirmed that they do not do thoracic surgery. I faxed higher level of care request to [facility]. I called Estela at [facility] to let her know that [facility] does not do thoracic surgery.
--- NOTE | 2020-01-02 11:12 | NUR ---
I received a call from Misty at the [facility] Transfer Center [phone]-provided her with additional clinical information as requested. She will present the information to her MD and will call me back to let me know if they are willing to accept this patient (pending contract approval with [facility]).
[2020-01-02] MEDS: MICAFUNGIN SODIUM 100 MG in SODIUM CHL 0.9% 100 ML IV SCH (11:14)
[2020-01-02] MEDS: PROPOFOL 100 ML IV SCH (14:40)
--- NOTE | 2020-01-02 14:58 | NUR ---
DR CASTELLON AT BEDSIDE, AWARE OF LOW BLOOD SUGARS AND RN PLACED BY ON TKO D5W AND AWARE TPN WAS DISCONTINUED YESTERDAY. GAVE NEW ORDER FOR PULMOCARE TUBE FEEDINGS AND FOR DIETARY CONSULT FOR RECOMMENDATION.
--- NOTE | 2020-01-02 15:15 | NUR ---
I received a call from Misty at the [facility] Transfer center letting me know that they can not accommodate this patient's needs. I called [facility] Shoe Stitcher Odd Estela [phone] and left message letting her know, asked if we can reach out to [facility] or any other facilities.
--- NOTE | 2020-01-02 16:20 | NUR ---
SPOKE WITH DR CABRALES , GAVE UPDATE ON LATEST BLOOD CULTURE RESULTS AND AWARE OF [facility] CASE MANAGEMENT NOTES ON PENDING TRANSFER
--- NOTE | 2020-01-02 18:10 | NUR ---
Respiratory note: RECEIVED PT ON VENT V17, VENT CONNECTED TO RED OUTLET AND O2 SOURCE. ALARMS ARE SET AND AUDIBLE. AM,BU BAG AND MASK AT BEDSIDE BS ARE FINE COURSE SXD VIA TRACH FOR THICK SILVER/YELLOW SECRETIONS. MED NEB TX GIVEN VIE AEROGEN INLINE VENT CIRCUIT. GUARDS PRESENT AT BEDSIDE. PTS CURRENT TEMP IS 99.5F. RT NAME AND PAGER ASSIGNMENT WRITTEN ON PTS ROOM BOARD. WILL CONTINUE TO MONITOR Q2H AND NEEDED.
--- NOTE | 2020-01-02 19:30 | NUR ---
Opening Shift Note Received pt on mechanical ventilator. Tracheostomy in place. Pt sedated on versed and fentanyl. Pt awakens to stimuli but falls back asleep quickly. Able to follow commands. Full assessment done see interventions. Right IJ TLC, all ports patent. See IV spreadsheet for details. On levophed gtt. Goldstein catheter in place draining to gravity, secured below bladder and free of kinks. Guards at bedside. Will continue to monitor closely.
--- NOTE | 2020-01-02 20:09 | NUR ---
Respiratory note: AT BEDSIDE FOR ROUTINE VENT CHECK. NO CHANGES MADE AT THIS TIME. PTS CURRENT TEMP IS 99.7F. WILL CONTINUE TO MONITOR.
--- NOTE | 2020-01-02 22:00 | NUR ---
Held scheduled Lantus as pt's blood sugars have been low and pt NPO status.
[2020-01-03] VITALS (99 sets, daily range): BP systolic 82–137; BP diastolic 52–84
[2020-01-03] MEDS: SOD CHL 0.9%/ KCL 20MEQ 1,000 ML IV SCH ×2 (00:54→16:05)
[2020-01-03 02:26] LABS: Basophils # (auto) 0 10 ^3/uL (0-0.2); Basophils % (auto) 0.3 % (0.0-2.0); Eosinophils # (auto) 0.5 10 ^3/uL (0-0.8); Eosinophils % (auto) 3.6 % (0.0-7.0); Hematocrit 25.8 % (41.0-53.0); Hemoglobin 8.3 g/dL (13.5-17.5); Lymphocytes # (auto) 2.1 10 ^3/uL (0.4-5.4); Lymphocytes % (auto) 14.6 % (10.0-50.0); Mean Corpuscular Hemoglobin 27.6 pg (28.0-32.0); Mean Corpuscular Hgb Conc. 32.2 g/dL (32.0-36.0); Mean Corpuscular Volume 85.9 fL (80.0-100.0); Monocytes # (auto) 0.5 10 ^3/uL (0-1.3); Monocytes % (auto) 3.3 % (0.0-12.0); Neutrophils # (auto) 11.1 10 ^3/uL (1.6-8.6); Neutrophils % (auto) 78.2 % (37.0-80.0); Platelet Count (auto) 337 10^3/uL (140-450); Red Cell Distribution Width 19.3 % (11.8-14.3); White Blood Cell 14.2 10^3/uL (4.4-10.8)
[2020-01-03 02:57] LABS: Albumin 1.5 g/dL (3.4-5.0); BUN/Creatinine Ratio 29.5; Calcium 7.7 mg/dL (8.5-10.1); Potassium 3.6 mmol/L (3.5-5.1)
[2020-01-03 03:00] LABS: Bilirubin, Total 1.3 mg/dL (0.2-1.0)
[2020-01-03] MEDS: VANCOMYCIN 1GM/250ML 250 ML IV SCH ×2 (03:00→16:05)
--- NOTE | 2020-01-03 03:30 | NUR ---
Held scheduled vanco. Trough 20.3
--- NOTE | 2020-01-03 04:31 | NUR ---
Cares Pt given CHG wipe bath and partial linen change at this time. Pt tolerated well. Oral care rendered.
[2020-01-03] MEDS: METOCLOPRAMIDE HCL 5MG/ml INJ 2ml VIAL IV SCH ×3 (05:46→22:27)
[2020-01-03] MEDS: PIPERACILLIN-TAZOB 3.375GM 100 ML IV SCH ×4 (05:47→17:50)
[2020-01-03] MEDS: MIDAZOLAM DRIP 50 mg/50mL 50 ML IV SCH ×3 (05:47→17:51)
[2020-01-03] MEDS: ACCU-CHEK COMFORT CURVE STRIP VI SCH ×4 (06:00→17:56)
[2020-01-03] MEDS: InsuLIN REG 1unit/0.01ml Soln (100units/ml) SC SCH ×4 (06:00→18:26)
[2020-01-03] MEDS: ACETYLCYSTEINE 10 %(100MG/ML) SOL 4ML NEB SCH ×2 (06:26→18:26)
[2020-01-03] MEDS: IPRATROPIUM BROM 0.5 MG/2.5ML INH SOL NEB SCH ×2 (06:26→18:26)
[2020-01-03] MEDS: ALBUTEROL SULF 2.5 MG/0.5ML(0.5%) NEB SOLN NEB SCH ×2 (06:26→18:26)
[2020-01-03] MEDS: fentaNYL Drip 2500mCg/250mlNS 250 ML IV SCH (08:08)
--- NOTE | 2020-01-03 08:30 | NUR ---
DR CABRALES AWARE OF LATEST BLOOD CULTURE RESULTS AND LAST CASE MANAGEMENT NOTE REGARDING TRANSFER TO [facility]
[2020-01-03] MEDS: ENOXAPARIN SOD 40 MG/0.4 ML SYRINGE SC SCH (09:53)
[2020-01-03] MEDS: PANTOPRAZOLE 40 MG/10 ML VIAL INJ IV SCH (09:53)
[2020-01-03] MEDS: DIGOXIN (250MCG/ML) 2 ML AMPULE IV SCH (09:54)
[2020-01-03] MEDS: SODIUM CHLOR 0.9% PF (SALINE LOCK) 10ML VIAL/SYR IV SCH ×2 (09:54→22:00)
[2020-01-03] MEDS: AMIODARONE HCL 200 MG TAB PO SCH ×2 (09:55→22:27)
[2020-01-03] MEDS: MICAFUNGIN SODIUM 100 MG in SODIUM CHL 0.9% 100 ML IV SCH (10:00)
--- NOTE | 2020-01-03 10:56 | NUR ---
DR ZARATE AT BEDSIDE DR GAVE RECOMMENDATION FOR STRONGER ANTIFUNGAL IV MEDICATION. DR STATED TO CALL PHARMACIST AND SEE WHAT THEY RECOMMEND. PHARMACIST WILL CALL BACK.
--- NOTE | 2020-01-03 11:10 | NUR ---
DR CABRALES AT BEDSIDE, ORDERED STAT CHEST CT. RT NATHALY AWARE FOR TRANSPORT AND RADIOLOGY AWARE AND READY WHEN RT IS READY.
[2020-01-03] MEDS: NOREPINEPHRINE 8 MG/250ML KIT 250 ML IV SCH (11:12)
--- NOTE | 2020-01-03 11:20 | NUR ---
WEB DESIGNER AT BEDSIDE, RECOMMENDATION FOR GLUCERNA AT 65ML/HR- WILL ORDER AND START ONCE TRANSPORTED BACK TO ICU AFTER CT SCAN
--- NOTE | 2020-01-03 12:45 | NUR ---
TRANSPORTED TO CT CHEST AND BACK PER STAT ORDER FROM DR CABRALES. PER DR CABRALES/DR RICHTER, DR RICHTER PLACED CATHETER INTO RIGHT PLEURAL SPACE UNDER CT GUIDANCE. TWO DRS SIGNED THE CONSENT. DR CABRALES/DR RICHTER ORDERED TO HOOK SHEST TUBE TO -40 CM SUCTION. PATIENT TRANSFERRED IN STABLE CONDITION AND WAS STABLE DURING PROCEDURE. Addendum: 01/03/20 at 1542 by Robert Melendez RN TRANSPORTED TO CT AT 1115
[2020-01-03] MEDS: INSULIN LANTUS (GLARGINE) 1 /0.01ml (100units/ml) SC SCH ×2 (13:45→22:00)
--- NOTE | 2020-01-03 13:55 | NUR ---
Nutrition Follow-up note Wt.: 83.2 kg Pt parenteral nutrition discontinued d/t rare fungal infection at PN site. Suggest EN nutrition support of Glucerna 1.2 @ 65 ml/hr goal rate. Will continue to monitor PO intake, PN regimen, skin status, pertinent labs and weight trends. Will f/u in 2 to 3 days. Est. energy needs: 6233-1807 kcals (20-25 kcal/kgBW). Est. protein needs: 101-126 gms/day (1.2-1.5 gm/kgBW) - Prealbumin 9.6 L (12/24/19) Labs 01/02: Glucose 195 H, A1c 10.8 H, Cl 108 H, TP 6.0 L, Albumin 1.5 L GI: Last BM noted on 12/24/19 per RN doc. Skin: Irwin scale 11, high risk, P/U. Please refer to wound assessment report for full details. PES: 1) Altered nutrition related lab values r/t current medical condition aeb hyponatremia, elevated RFTs, hyperglycemia, hypocalcemia, elevated bilirubin severe hypoalbuminemia Recommendations: 1) Suggest tapering and D/C PN if pt can tolerate 60% energy needs from PO intake. 2) Continue current plan of care.
--- NOTE | 2020-01-03 15:07 | NUR ---
FINAL BLOOD CULTURE TAKEN FROM 12/31 IS NOT RESULTED PER MICROBIOLOGY IT WAS A SEND OUT LAB AND WILL NOT BE BACK FOR 1-3 DAYS BUT SHOWING YEAST ON PRELIMINARY-WILL NOTIFY DR CABRALES.
--- NOTE | 2020-01-03 15:42 | NUR ---
ORDERED GLUCERNA TUBE FEEDINGS DIETARY RECOMMENDED PER DR CASTELLON ORDERED
[2020-01-03] MEDS: Glucerna 1.2 Cal 1Liter BOTTLE GT SCH (16:33)
[2020-01-03] MEDS: PROPOFOL 100 ML IV SCH (17:22)
--- NOTE | 2020-01-03 20:30 | NUR ---
Temperature of 101.1. Cooling blanket applied. Will continue to monitor.
--- NOTE | 2020-01-03 23:30 | NUR ---
RESIDUALS 60 MLS OF TF ASPIRATED FROM NGT. TF STOPPED FOR NOW.
[2020-01-04] VITALS (96 sets, daily range): BP systolic 86–143; BP diastolic 57–82
[2020-01-04] MEDS: MIDAZOLAM DRIP 50 mg/50mL 50 ML IV SCH (00:10)
--- NOTE | 2020-01-04 03:52 | NUR ---
Respiratory note: WHILE DOING TRACH CARE A PRESSURE WOUND UNDER THE RIGHT SIDE OF PT TRACH WAS NOTED. INFORMED RN FELICIANO OF THE WOUND. RN TOOK A PICTURE OF THE WOUND AND WILL FOLLOW UP WITH WOUND CARE FOR NEXT STEPS. WILL ALSO INFORM DAY SHIFT RT.
--- NOTE | 2020-01-04 03:56 | NUR ---
WOUND RT NOTIFIED THIS RN OF WOUND UNDER TRACH. POSSIBLE PRESSURE WOUND UNDER TRACH; PICTURE TAKEN AND NEW GAUZE APPLIED. WILL NOTIFY WOUND CARE
[2020-01-04] MEDS: PIPERACILLIN-TAZOB 3.375GM 100 ML IV SCH ×4 (05:34→21:37)
[2020-01-04] MEDS: METOCLOPRAMIDE HCL 5MG/ml INJ 2ml VIAL IV SCH ×3 (05:34→21:35)
[2020-01-04] MEDS: InsuLIN REG 1unit/0.01ml Soln (100units/ml) SC SCH ×4 (05:36→18:33)
[2020-01-04] MEDS: ACCU-CHEK COMFORT CURVE STRIP VI SCH ×4 (05:36→18:24)
[2020-01-04] MEDS: IPRATROPIUM BROM 0.5 MG/2.5ML INH SOL NEB SCH ×4 (05:52→18:25)
[2020-01-04] MEDS: ALBUTEROL SULF 2.5 MG/0.5ML(0.5%) NEB SOLN NEB SCH ×4 (05:52→18:25)
[2020-01-04] MEDS: ACETYLCYSTEINE 10 %(100MG/ML) SOL 4ML NEB SCH ×3 (05:52→18:25)
--- NOTE | 2020-01-04 07:09 | NUR ---
REPORT GIVEN TO DAY SHIFT RN TO ASSUME CARE
[2020-01-04] MEDS: SOD CHL 0.9%/ KCL 20MEQ 1,000 ML IV SCH (08:14)
--- NOTE | 2020-01-04 09:19 | NUR ---
DR. CABRALES CALLED: ORDERS GIVEN MD UPDATED ON PT'S CURRENT STATUS, HEMODYNAMICS AND GTT'S AT THIS TIME. ORDERS GIVEN FOR CPAP TRIAL THIS AM. ORDERS GIVEN TO STOP SEDATIONS, ABG NOW THEN PER PROTOCOL. STOPPED VERSED GTT AND FENTANYL GTT AT THIS TIME. CONTINUE CARE.
--- NOTE | 2020-01-04 09:28 | NUR ---
STATUS: ABG TAKEN AT THIS TIME PATIENT'S SEDATION REMAINS OFF. WAITING FOR PATIENT TO WAKE UP. PATIENT WAS ON VERSED GTT AT 12MG/HR AND FENTANYL GTT WAS AT 200 MCG/HR. BASELINE ABG FOR AM TAKEN BY R.T. AT BEDSIDE DURING THIS TIME. WAITING FOR RESULTS. V/S FOLLOWED: HR SR 74, 100% SATS ON VENT AT 30% FIO2, PEEP CURRENTLY AT +8, PRESSURE CONTROL RATE 16, PRESSURE 22 AT THIS TIME, RR 16, BP 104/68, GTT'S CURRENTLY: LEVOPHED GTT AT 8 MCG/MIN, NS WITH 20 KCL AT 60 ML/HR. WILL CONTINUE TO MONITOR.
[2020-01-04] MEDS: PANTOPRAZOLE 40 MG/10 ML VIAL INJ IV SCH (10:30)
[2020-01-04] MEDS: INSULIN LANTUS (GLARGINE) 1 /0.01ml (100units/ml) SC SCH ×2 (10:30→21:37)
[2020-01-04] MEDS: SODIUM CHLOR 0.9% PF (SALINE LOCK) 10ML VIAL/SYR IV SCH ×2 (10:30→22:00)
[2020-01-04] MEDS: ENOXAPARIN SOD 40 MG/0.4 ML SYRINGE SC SCH (10:30)
[2020-01-04 11:05] LABS: Basophils # (auto) 0.1 10 ^3/uL (0-0.2); Basophils % (auto) 0.7 % (0.0-2.0); Eosinophils # (auto) 0.4 10 ^3/uL (0-0.8); Eosinophils % (auto) 3.3 % (0.0-7.0); Hematocrit 26.3 % (41.0-53.0); Hemoglobin 8.7 g/dL (13.5-17.5); Lymphocytes # (auto) 1.6 10 ^3/uL (0.4-5.4); Lymphocytes % (auto) 14.2 % (10.0-50.0); Mean Corpuscular Hemoglobin 28.2 pg (28.0-32.0); Mean Corpuscular Hgb Conc. 32.9 g/dL (32.0-36.0); Mean Corpuscular Volume 85.7 fL (80.0-100.0); Monocytes # (auto) 0.4 10 ^3/uL (0-1.3); Monocytes % (auto) 3.8 % (0.0-12.0); Neutrophils # (auto) 8.9 10 ^3/uL (1.6-8.6); Platelet Count (auto) 426 10^3/uL (140-450); Red Blood Cells 3.07 10^6/uL (4.5-5.90); Red Cell Distribution Width 19.7 % (11.8-14.3); White Blood Cell 11.4 10^3/uL (4.4-10.8)
[2020-01-04 11:27] LABS: BUN/Creatinine Ratio 21.3; Calcium 7.3 mg/dL (8.5-10.1); Potassium 4.7 mmol/L (3.5-5.1)
[2020-01-04] MEDS: DIGOXIN (250MCG/ML) 2 ML AMPULE IV SCH (12:06)
[2020-01-04] MEDS: AMIODARONE HCL 200 MG TAB PO SCH ×2 (12:07→21:36)
--- NOTE | 2020-01-04 12:15 | NUR ---
ANXIETY WITH PAIN: STATUS PATIENT'S RR INCREASED TO 28 BPM. PATIENT STILL REMAINS ON PC 16, PRESSURE 22, PEEP +8. PATIENT GETTING MORE ANXIOUS AND HAVING PAIN. PATIENT ABLE TO FOLLOW COMMANDS BUT STILL REMAINS ANXIOUS. TURNED ON VERSED GTT AT 5MG/HR AND INCREASED FENTANYL GTT TO 100 MCG/HR.
--- NOTE | 2020-01-04 13:00 | NUR ---
DR. CARABALLO A BEDSIDE: UPDATE WITH ORDERS MD UPDATED ON PT'S CURRENT STATUS, LABS. HEMODYNAMICS AND CURRENT GTT'S. ORDERS GIVEN AND TO BE CARRIED OUT. CONTINUE CARE. DR. CARABALLO WANTING DR. JUAN/ DR. GRIDER TO TAKE OVER CARE OF VENTILATOR MANAGEMENT. SEE MD ORDERS. CONTINUE CARE.
[2020-01-04] MEDS: MICAFUNGIN SODIUM 100 MG in SODIUM CHL 0.9% 100 ML IV SCH (13:30)
[2020-01-04] MEDS: VANCOMYCIN 1GM/250ML 250 ML IV SCH (16:00)
[2020-01-04] MEDS: fentaNYL Drip 2500mCg/250mlNS 250 ML IV SCH ×2 (17:00→18:34)
[2020-01-04] MEDS: PROPOFOL 100 ML IV SCH (17:13)
[2020-01-04] MEDS: NOREPINEPHRINE 8 MG/250ML KIT 250 ML IV SCH (17:14)
--- NOTE | 2020-01-04 19:30 | NUR ---
Opening Shift Note Report received from day shift RN. Pt trach'd on mechanical ventilator sedated on versed and fentanyl. Full assessment done, see interventions. Right upper chest tube in place on anterior upper chest to 40cm of suction. air leak noted. Md's aware of air leak. serous fluid being drained. Bilateral mittens applied as pt was reaching for trach. Guards at bedside as pt is incarcerated. All alarms on and audible. Will continue to monitor closely.
--- NOTE | 2020-01-04 20:30 | NUR ---
DR. JUAN AT BEDSIDE
--- NOTE | 2020-01-04 23:30 | NUR ---
TF Proper placement of NGT assessed and then TF started at 10 mls/hr. will continue to monitor tolerance.
[2020-01-05] VITALS (106 sets, daily range): BP systolic 88–127; BP diastolic 51–79
--- NOTE | 2020-01-05 03:30 | NUR ---
CARES PT GIVEN CHG WIPE BATH AND LINEN CHANGE. SKIN INTEGRITY ASSESSED FOR ANY CHANGES; NONE NOTED.
--- NOTE | 2020-01-05 04:00 | NUR ---
TF OFF, PT NOT TOLERATING, HIGH RESIDUALS
[2020-01-05] MEDS: MIDAZOLAM DRIP 50 mg/50mL 50 ML IV SCH ×4 (04:20→21:08)
[2020-01-05] MEDS: InsuLIN REG 1unit/0.01ml Soln (100units/ml) SC SCH ×4 (05:56→18:04)
[2020-01-05] MEDS: PIPERACILLIN-TAZOB 3.375GM 100 ML IV SCH ×2 (05:56→12:29)
[2020-01-05] MEDS: METOCLOPRAMIDE HCL 5MG/ml INJ 2ml VIAL IV SCH ×3 (05:56→21:59)
[2020-01-05] MEDS: SOD CHL 0.9%/ KCL 20MEQ 1,000 ML IV SCH ×3 (05:56→21:09)
[2020-01-05] MEDS: ACCU-CHEK COMFORT CURVE STRIP VI SCH ×4 (05:57→17:52)
[2020-01-05] MEDS: IPRATROPIUM BROM 0.5 MG/2.5ML INH SOL NEB SCH ×3 (06:27→18:43)
[2020-01-05] MEDS: ALBUTEROL SULF 2.5 MG/0.5ML(0.5%) NEB SOLN NEB SCH ×3 (06:27→18:43)
[2020-01-05] MEDS: ACETYLCYSTEINE 10 %(100MG/ML) SOL 4ML NEB SCH ×3 (06:27→18:43)
--- NOTE | 2020-01-05 08:00 | NUR ---
TF HELD PATIENT NOTED TO HAVE 80CC OF GASTRIC RESIDUAL. T.F REMAIN ON HOLD. ASPIRATION PRECAUTIONS IN PLACE.
--- NOTE | 2020-01-05 08:25 | NUR ---
Respiratory note: DR. JUAN CALLED FOR MORNING ABG RESULT. NO SETTINGS CHANGED AT THIS TIME. PER DR. JUAN PT NEEDS TO BE SEDATED MORE.
--- NOTE | 2020-01-05 08:32 | NUR ---
SALICYLIC ACID BLENDER UPDATED SALICYLIC ACID BLENDER UPDATED ON MORNING ABG. PATIENT CURRENT BREATHING 25 BREATHS PER MIN. PER MD EWELINA TO INCREASE FENT GTT TO 300MCG MAX DOSE TO ASSIST WITH SYNCHRONY ON MECHANICAL VENTILATOR. SEE NEW ORDERS.
[2020-01-05] MEDS: MICAFUNGIN SODIUM 100 MG in SODIUM CHL 0.9% 100 ML IV SCH (09:33)
[2020-01-05] MEDS: PANTOPRAZOLE 40 MG/10 ML VIAL INJ IV SCH (09:33)
[2020-01-05] MEDS: AMIODARONE HCL 200 MG TAB PO SCH ×2 (09:33→21:59)
[2020-01-05] MEDS: SODIUM CHLOR 0.9% PF (SALINE LOCK) 10ML VIAL/SYR IV SCH ×2 (09:34→22:00)
[2020-01-05] MEDS: DIGOXIN (250MCG/ML) 2 ML AMPULE IV SCH (09:34)
--- NOTE | 2020-01-05 09:49 | NUR ---
I called [facility] [phone] and spoke with Stephanie in Admissions, she said they are still waiting on a bed to become available.
--- NOTE | 2020-01-05 09:53 | NUR ---
I called [facility] [phone] and left message for warehouse guard asking about bed availability.
--- NOTE | 2020-01-05 09:54 | NUR ---
DR. CASSIDY FROM [facility] CALLED FOR AN UPDATE.
[2020-01-05] MEDS: INSULIN LANTUS (GLARGINE) 1 /0.01ml (100units/ml) SC SCH ×2 (09:58→22:11)
--- NOTE | 2020-01-05 10:01 | NUR ---
I called [facility] [phone] and left message for transfer center asking if this is a patient they can accommodate.
--- NOTE | 2020-01-05 10:07 | NUR ---
I called the [facility] Transfer Center [phone] and was told that per their SUPERVISOR PAPER COATING they are declining the transfer of this patient due to there being no emergent need at this time.
[2020-01-05 10:08] LABS: Eosinophils # (auto) 0.6 10 ^3/uL (0-0.8); Hemoglobin 8.9 g/dL (13.5-17.5); Monocytes # (auto) 0.5 10 ^3/uL (0-1.3)
[2020-01-05 10:10] LABS: Basophils # (auto) 0 10 ^3/uL (0-0.2); Basophils % (auto) 0.4 % (0.0-2.0); Eosinophils % (auto) 5.1 % (0.0-7.0); Hematocrit 28.2 % (41.0-53.0); Lymphocytes % (auto) 16.9 % (10.0-50.0); Mean Corpuscular Hemoglobin 27.2 pg (28.0-32.0); Mean Corpuscular Hgb Conc. 31.5 g/dL (32.0-36.0); Mean Corpuscular Volume 86.2 fL (80.0-100.0); Neutrophils # (auto) 8.5 10 ^3/uL (1.6-8.6); Neutrophils % (auto) 73.6 % (37.0-80.0); Platelet Count (auto) 486 10^3/uL (140-450); Red Blood Cells 3.27 10^6/uL (4.5-5.90); White Blood Cell 11.6 10^3/uL (4.4-10.8)
[2020-01-05 10:15] LABS: Red Cell Distribution Width 20.3 % (11.8-14.3)
[2020-01-05 10:24] LABS: Albumin 1.6 g/dL (3.4-5.0); Calcium 7.8 mg/dL (8.5-10.1)
[2020-01-05 10:28] LABS: BUN/Creatinine Ratio 16.3; Total Protein 6.4 g/dL (6.4-8.2)
--- NOTE | 2020-01-05 11:00 | NUR ---
I received a call from [facility] boiler house mechanic asking me to fax clinical information-faxed as requested to [phone]. [address] Miller's office [phone] and asked them to page him-per [facility] sup our MD needs to call their manager configuration machinery mechanic [phone] extension [phone].
--- NOTE | 2020-01-05 12:11 | NUR ---
I spoke with Dr. Miller and provided him with contact information for the performance solutions specialist bench shear operator at [facility]. Dr. Miller to let me know if that MD is willing to accept the patient. I called [facility] Sheet Metal Worker Supervisor Estela [phone] and left message asking if I can reach out to [facility] in [place].
[2020-01-05] MEDS: fentaNYL Drip 2500mCg/250mlNS 250 ML IV SCH ×2 (12:30→21:15)
[2020-01-05] MEDS: ENOXAPARIN SOD 40 MG/0.4 ML SYRINGE SC SCH (12:32)
--- NOTE | 2020-01-05 13:11 | NUR ---
Per Dr. Miller he could not get through to the offset press assistant with the provided number. I called [facility] and left message for roundhouse supervisor asking to verify phone number.
--- NOTE | 2020-01-05 13:27 | NUR ---
I spoke with Maryse from [facility]-I let her know that Dr. Miller could not get through with provided number. She said that she will give Dr. Miller's contact information to her MD. I also let her know that Dr. Coleman spoke with Dr. Velasquez there yesterday and he accepted the patient. Per Maryse she does have available beds.
--- NOTE | 2020-01-05 14:00 | NUR ---
AT BEDSIDE DR. MAYO UPDATED ON PATIENTS STATUS. SEE NEW ORDERS.
[2020-01-05] MEDS: NOREPINEPHRINE 8 MG/250ML KIT 250 ML IV SCH ×2 (14:28→21:16)
[2020-01-05] MEDS: PROPOFOL 100 ML IV SCH (14:28)
--- NOTE | 2020-01-05 14:30 | NUR ---
TF HELD PATIENT CONTINUES TO HAVE 60CC OF GASTRIC RESIDUAL. FEEDINGS HELD. ASPIRATION PRECAUTIONS IN PLACE.
--- NOTE | 2020-01-05 15:40 | NUR ---
COMPLETE BED CHANGE/ CHEST TUBE/ SKIN PATIENT TOLERATED ACTIVITY WELL. HEELS OFFLOADED WITH PILLOWS. BILATERAL LOWER ANKLES AND LEFT WRIST REMAIN INTACT, OPTIFOAM PLACED TO BONY AREAS TO PREVENT SKIN BREAKDOWN FROM CUFFS. GUARDS AT BEDSIDE. RIGHT LATERAL CHEST, S/P CHEST TUBE REMOVAL NOTE TO HAVE OPTIFOAM WITH YELLOW DRAINAGE, SITE NOTED TO HAVE SURROUNDING TISSUE TO HAVE WHITE BED AND MOIST. CLEANSED SITE WITH CHLORAPREP SCRUB, COVERED WITH OPTIFOAM GENTLE. SACRUM CLEANSED,AND PADDED DRY, ZGAURD APPLIED. OPTIFOAM PLACED. RIGHT MIDCLAVICULAR PLEURAL CATHETER DRESSING REMAINS CDI. CATHETER CONTINUES ON LCS ON OASIS WATER SEAL CHAMBER AND CONTINUES TO HAVE A LEVEL 2 AIR LEAK. NO SUBCUTANEOUS EMPHYSEMA NOTED. ALL DRESSING INTACT, LINES SECURED. MD'S NOTED STATING THEY ARE AWARE OF LEAK. POX HAS REMAINED ABOVE 97%. WILL CONTINUE TO MONITOR. Addendum: 01/06/20 at 0941 by Vibha Fuller RN CHEST TUBE REMAINS AT -40 CM SUCTION.
--- NOTE | 2020-01-05 15:50 | NUR ---
I spoke with Maryse at [facility] [phone]-she is still working on connecting her MD with Dr. Miller. Faxed her discharge summary dictated today by Dr. Miller as well as negative COVID-19 test.
--- NOTE | 2020-01-05 15:55 | NUR ---
SEDATION RR NOTED TO INCREASE BACK TO LOW 20'S. FENT INCREASED SCHEDULER MAINTENANCE WOULD LIKE PATIENT RR LOWER DUE TO AM BLOOD GAS.
--- NOTE | 2020-01-05 16:32 | NUR ---
I received a call from Maryse at [facility] letting me know that the cardio-thoracic doctor on today Dr. Tomas is not accepting this patient.
--- NOTE | 2020-01-05 18:57 | NUR ---
STABLE PATIENT MAINTAINS MODERATELY SEDATED, TOLERATING VENTILATOR WELL. VSS.
--- NOTE | 2020-01-05 20:16 | NUR ---
CHEST TUBE IS LEAKING AIR MD AWARE PER REPORT
--- NOTE | 2020-01-05 21:55 | NUR ---
YESSICA ROUNDING NO NEW ORDERS
[2020-01-06] VITALS (105 sets, daily range): BP systolic 84–136; BP diastolic 56–80
[2020-01-06] MEDS: ACCU-CHEK COMFORT CURVE STRIP VI SCH ×4 (00:11→16:42)
[2020-01-06] MEDS: MIDAZOLAM DRIP 50 mg/50mL 50 ML IV SCH ×6 (00:53→20:15)
--- NOTE | 2020-01-06 02:05 | NUR ---
feeding started at 15ml/hr will increase depending on pt's tolerance/residual
--- NOTE | 2020-01-06 02:36 | NUR ---
TEMP 99.9 - COOLING MEASURES ARE TAKEN
--- NOTE | 2020-01-06 02:37 | NUR ---
Opening Shift Note Assumed care of patient, non verbal. No S/S of distress/SOB or pain, rr between 22-26. Tracheostomy tube in place. Continue to monitor for changes Q1hr and PRN. Side rails up x2. Bed locked in lowest position. Call light within reach. 2 guards at bedside. Cuffs on bilateral ankles. No skin breakdown noted. Goldstein intact, draining down the gravity. Central line intact, fluids running through central line, see spread sheet. pt is on versed 15 fentanyl 275 levo 6 Addendum: 01/06/20 at 0448 by ZOE CASSIDY RN RN WRONG TIME, CORRECT TIME 1999
--- NOTE | 2020-01-06 03:20 | NUR ---
CARE PROVIDE FULL BODY BATH, ROOM WAS SET TO ROOM TEMPERATURE DURING BATH FULL BED LINEN CHANGE
--- NOTE | 2020-01-06 04:47 | NUR ---
WRONG TIME, CORRECT TIME 1999 Addendum: 01/06/20 at 0448 by ZOE CASSIDY RN RN IGNORE, MEANT TO GO UNDER (AMEND) OPENING SHIFT NOTE
[2020-01-06] MEDS: Glucerna 1.2 Cal 1Liter BOTTLE GT SCH (05:30)
[2020-01-06] MEDS: InsuLIN REG 1unit/0.01ml Soln (100units/ml) SC SCH ×4 (06:00→17:46)
[2020-01-06] MEDS: METOCLOPRAMIDE HCL 5MG/ml INJ 2ml VIAL IV SCH ×3 (06:14→22:06)
[2020-01-06] MEDS: IPRATROPIUM BROM 0.5 MG/2.5ML INH SOL NEB SCH ×3 (06:22→18:34)
[2020-01-06] MEDS: ACETYLCYSTEINE 10 %(100MG/ML) SOL 4ML NEB SCH ×3 (06:22→18:35)
[2020-01-06] MEDS: ALBUTEROL SULF 2.5 MG/0.5ML(0.5%) NEB SOLN NEB SCH ×3 (06:22→18:34)
[2020-01-06] MEDS: fentaNYL Drip 2500mCg/250mlNS 250 ML IV SCH ×2 (07:37→16:50)
--- NOTE | 2020-01-06 09:30 | NUR ---
UPDATED DR. ZARATE AWARE OF CURRENT OF CURRENT VENT SETTINGS. ORDER FOR CXR IN PLACE.
[2020-01-06] MEDS: AMIODARONE HCL 200 MG TAB PO SCH ×2 (10:00→22:06)
[2020-01-06] MEDS: SODIUM CHLOR 0.9% PF (SALINE LOCK) 10ML VIAL/SYR IV SCH ×2 (10:00→22:07)
[2020-01-06] MEDS: PANTOPRAZOLE 40 MG/10 ML VIAL INJ IV SCH (10:00)
[2020-01-06] MEDS: INSULIN LANTUS (GLARGINE) 1 /0.01ml (100units/ml) SC SCH ×2 (10:00→22:10)
[2020-01-06] MEDS: MICAFUNGIN SODIUM 100 MG in SODIUM CHL 0.9% 100 ML IV SCH (10:41)
[2020-01-06] MEDS: DIGOXIN (250MCG/ML) 2 ML AMPULE IV SCH (10:41)
--- NOTE | 2020-01-06 11:06 | NUR ---
LOVENOX/CBC PENDING LABS ORDERED PATIENTS HGB FLUCTUATING. NO ACTIVE BLEEDING NOTED AT THIS TIME. LOVENOX SCHEDULED. AWAITING LABS.
--- NOTE | 2020-01-06 11:09 | NUR ---
TUBE FEEDING TOLERATED TF INFUSING AT 15ML/HR. CURRENT RESIDUAL 10MLS. TF TO CONTINUE AT CURRENT RATE UNTIL FURTHER ASSESSMENT.
[2020-01-06 11:13] LABS: Basophils # (auto) 0.1 10 ^3/uL (0-0.2); Eosinophils # (auto) 0.7 10 ^3/uL (0-0.8); Monocytes # (auto) 0.4 10 ^3/uL (0-1.3); Neutrophils # (auto) 8.7 10 ^3/uL (1.6-8.6); Red Cell Distribution Width 19.7 % (11.8-14.3); White Blood Cell 12.3 10^3/uL (4.4-10.8)
[2020-01-06 11:14] LABS: Basophils % (auto) 0.6 % (0.0-2.0); Eosinophils % (auto) 5.5 % (0.0-7.0); Hematocrit 28.3 % (41.0-53.0); Lymphocytes # (auto) 2.4 10 ^3/uL (0.4-5.4); Lymphocytes % (auto) 19.2 % (10.0-50.0); Mean Corpuscular Hemoglobin 27.5 pg (28.0-32.0); Mean Corpuscular Hgb Conc. 31.8 g/dL (32.0-36.0); Mean Corpuscular Volume 86.4 fL (80.0-100.0); Monocytes % (auto) 3.6 % (0.0-12.0); Neutrophils % (auto) 71.1 % (37.0-80.0); Platelet Count (auto) 500 10^3/uL (140-450); Red Blood Cells 3.28 10^6/uL (4.5-5.90)
[2020-01-06 11:36] LABS: Albumin 1.6 g/dL (3.4-5.0); Calcium 7.7 mg/dL (8.5-10.1); Potassium 3.8 mmol/L (3.5-5.1)
[2020-01-06 11:41] LABS: BUN/Creatinine Ratio 14.4; Bilirubin, Total 0.8 mg/dL (0.2-1.0); Total Protein 6.7 g/dL (6.4-8.2)
--- NOTE | 2020-01-06 12:00 | NUR ---
AT BEDSIDE DR. HUMPHREYS UPDATED ON PATIENTS STATUS. SEE MD ORDERS/ NOTES. Addendum: 01/06/20 at 1437 by Vibha Fuller RN MD NOTIFIED PER DOCUMENTATION/REPORT, LAST BM 12/23. NEW ORDER IN PLACE.
--- NOTE | 2020-01-06 12:54 | NUR ---
CRITICAL LAB VALUE DIGOXIN READING 4.6. PAGED TO NOTIFY OF CRITICAL LAB VALUE. AWAITING CALLBACK.
--- NOTE | 2020-01-06 13:00 | NUR ---
PATIENT RR NOTED 30-32, PATIENT REPOSITION TO ASSIST WITH COMFORT MEASURES. 1330 PATIENT CONTINUES TO HAVE RR 30'S. FENT INCREASED FOR COMFORT.
[2020-01-06] MEDS: ENOXAPARIN SOD 40 MG/0.4 ML SYRINGE SC SCH (13:09)
--- NOTE | 2020-01-06 13:31 | NUR ---
Gastric residual 60cc of gastric residual. TF on hold at this time. Aspiration precautions in place.
[2020-01-06] MEDS: PROPOFOL 100 ML IV SCH (14:25)
--- NOTE | 2020-01-06 15:15 | NUR ---
FOOD AND BEVERAGE ORDER CLERK AT BEDSIDE MD UPDATED ON PATIENTS RR AND SMALL AMOUNT OF "GURGLING" HEAR TO UPPER AIRWAY. R.T ASSESSED CUFF AND ADEQUATELY INFLATED. RIGHT UPPER CHEST PLEURAL CATHETER CONTINUE TO HAVE LEVEL 1 AIR LEAK NOTED THIS A.M. POX HAS REMAINED 99-100%. LUNGS THROUGHOUT REMAIN COURSE. NEW ORDER FOR PRN.
[2020-01-06] MEDS: LACTULOSE 20Gm/30ML SOLN PO SCH (16:16)
[2020-01-06] MEDS: ROCURONIUM 10MG/ML 10ML VIAL IV PRN (16:17)
--- NOTE | 2020-01-06 16:22 | NUR ---
TOF PARALYTIC IVP ORDERED FOR ASYNCHRONY OF VENTILATOR RR REMAINS 27-38. TOF ASSESSED TO RIGHT ULNAR. 4/4 TWITCHES AT 5mA.
[2020-01-06] MEDS: SOD CHL 0.9%/ KCL 20MEQ 1,000 ML IV SCH (16:33)
--- NOTE | 2020-01-06 16:34 | NUR ---
TOF REASSESSMENT RR REMAINS 24-25 BREATHS PER MIN. TOF ASSESSED TO RIGHT ULNAR. 2/4 TWITCHES AT 5mA. WILL CONTINUE TO MONITOR.
--- NOTE | 2020-01-06 19:13 | NUR ---
REPORT GIVEN TO NOC NURSE. UPDATED ON PLAN OF CARE. PATIENTS TOLERATING VENTILATOR WELL. VSS.
--- NOTE | 2020-01-06 19:50 | NUR ---
Paul at bedside no new orders
--- NOTE | 2020-01-06 20:00 | NUR ---
Opening Shift Note Assumed care of patient, non verbal. No S/S of distress/SOB or pain, rr between 22-26. Tracheostomy tube in place. Continue to monitor for changes Q1hr and PRN. Side rails up x2. Bed locked in lowest position. Call light within reach. 2 guards at bedside. Cuffs on bilateral ankles and on left arm. No skin breakdown noted. Goldstein intact, draining down the gravity. Central line intact, fluids running through central line, see spread sheet. pt is on versed 15 fentanyl 300 levo 6
[2020-01-06] MEDS: NOREPINEPHRINE 8 MG/250ML KIT 250 ML IV SCH (22:15)
[2020-01-07] VITALS (107 sets, daily range): BP systolic 84–140; BP diastolic 56–84
[2020-01-07] MEDS: LACTULOSE 20Gm/30ML SOLN PO SCH ×5 (00:23→23:42)
[2020-01-07] MEDS: ACCU-CHEK COMFORT CURVE STRIP VI SCH ×5 (00:24→23:50)
[2020-01-07] MEDS: InsuLIN REG 1unit/0.01ml Soln (100units/ml) SC SCH ×5 (00:29→23:51)
[2020-01-07] MEDS: MIDAZOLAM DRIP 50 mg/50mL 50 ML IV SCH ×6 (00:38→20:48)
[2020-01-07] MEDS: fentaNYL Drip 2500mCg/250mlNS 250 ML IV SCH ×2 (00:42→18:38)
--- NOTE | 2020-01-07 00:56 | NUR ---
CALLED YESSICA VITALE RN, CALLED YESSICA REGARDING PT'S RR (20'S) NEW ORDER RECEIVED
[2020-01-07] MEDS: LORazepam 2MG/ML-1ML VIAL IV PRN ×4 (01:13→22:18)
[2020-01-07] MEDS: METOCLOPRAMIDE HCL 5MG/ml INJ 2ml VIAL IV SCH ×3 (05:58→21:37)
[2020-01-07] MEDS: IPRATROPIUM BROM 0.5 MG/2.5ML INH SOL NEB SCH ×3 (06:02→18:09)
[2020-01-07] MEDS: ACETYLCYSTEINE 10 %(100MG/ML) SOL 4ML NEB SCH ×3 (06:02→18:09)
[2020-01-07] MEDS: ALBUTEROL SULF 2.5 MG/0.5ML(0.5%) NEB SOLN NEB SCH ×3 (06:02→18:09)
[2020-01-07 08:20] LABS: Hemoglobin 9.4 g/dL (13.5-17.5)
[2020-01-07 08:22] LABS: Hematocrit 30.3 % (41.0-53.0); Mean Corpuscular Hemoglobin 27.2 pg (28.0-32.0); Mean Corpuscular Volume 87.7 fL (80.0-100.0); Platelet Count (auto) 605 10^3/uL (140-450); Red Blood Cells 3.46 10^6/uL (4.5-5.90); White Blood Cell 13.1 10^3/uL (4.4-10.8)
[2020-01-07 08:25] LABS: Red Cell Distribution Width 20.3 % (11.8-14.3)
[2020-01-07 08:35] LABS: Basophils % (manual) 0 (0.0-2.0); Blast Cells 0; Promyelocytes % 0; Reactive Lymphocytes 0
[2020-01-07 08:39] LABS: Albumin 1.7 g/dL (3.4-5.0); Potassium 3.9 mmol/L (3.5-5.1)
[2020-01-07 08:42] LABS: BUN/Creatinine Ratio 13.5; Bilirubin, Total 0.8 mg/dL (0.2-1.0); Total Protein 6.9 g/dL (6.4-8.2)
[2020-01-07 09:29] LABS: Band Neutrophils % (manual) 3; Eosinophils % (manual) 6 (0-7); Lymphocytes % (manual) 19 (10.0-50.0); Metamyelocytes % 1; Monocytes % (manual) 4 (0-12); Myelocytes % 1
[2020-01-07] MEDS: PANTOPRAZOLE 40 MG/10 ML VIAL INJ IV SCH (09:43)
[2020-01-07] MEDS: MICAFUNGIN SODIUM 100 MG in SODIUM CHL 0.9% 100 ML IV SCH (09:44)
[2020-01-07] MEDS: AMIODARONE HCL 200 MG TAB PO SCH ×2 (10:00→22:18)
[2020-01-07] MEDS: SODIUM CHLOR 0.9% PF (SALINE LOCK) 10ML VIAL/SYR IV SCH ×2 (10:00→21:49)
[2020-01-07] MEDS: INSULIN LANTUS (GLARGINE) 1 /0.01ml (100units/ml) SC SCH ×2 (10:00→21:48)
--- NOTE | 2020-01-07 10:00 | NUR ---
WOUND CARE NOTE: IN TO SEE PATIENT AT THIS TIME FOR WOUND REEVALUATION. CURRENT ABBY SCORE IS 10. HE REMAINS INTUBATED, SEDATED. PATIENT CONTINUES TO REST ON SPECIALTY AIR BED. PATIENT TURNED TO LEFT SIDE. HIS SACRAL SKIN IS DARK RED, WITH OPEN 2 X 0.4 CM STAGE 2 PRESSURE INJURY. WOUND BED IS DUSKY RED, WITH DARK RED PERIWOUND. APPLIED ZGUARD, OPTIFOAM GENTLE SACRAL DRESSING. REPOSITIONED PATIENT ONTO LEFT SIDE, REDISTRIBUTING PRESSURE POINTS WITH PILLOWS/WEDGES. PATIENT HAS OPTIFOAM GENTLE DRESSINGS APPLIED OVER ANKLES FOR CUSHION/PROTECTION FROM HIS CUFFS. NO WOUNDS OR PRESSURE AREAS NOTED UNDER DRESSINGS. REAPPLIED DRESSINGS. RECOMMEND:SIDE TO SIDE POSITIONING ONLY, CONTINUATION WITH ALL WOUND CARE ORDERS PREVIOUSLY PRESCRIBED BY . Addendum: 01/07/20 at 1359 by Denisha Thornton RN Amended: Links added.
--- NOTE | 2020-01-07 10:00 | NUR ---
Gastric residual Patient noted to have high gastric residual via piston. Right ng placed to lcs, approx. 150 of yellow, thick output noted. Will continue to monitor. Feedings on hold.
[2020-01-07] MEDS: ENOXAPARIN SOD 40 MG/0.4 ML SYRINGE SC SCH (10:03)
--- NOTE | 2020-01-07 10:15 | NUR ---
PO MEDICATION HELD AMIODARONE HELD DUE TO HIGH RESIDUALS. WILL CONTINUE TO MONITOR.
[2020-01-07] MEDS ORDERED: SODIUM BICARBONATE 8.4 % INJ 50ML VIAL IV ONE (10:45)
--- NOTE | 2020-01-07 10:45 | NUR ---
MD UPDATED TO NOTIFY OF MORNING BLOOD GAS. PATIENT CONTINUES TO HAVE RR NOTED IN THE 20'S-24 BREATHS PER MIN. NEW ORDERS IN PLACE. ATIVAN PRN IVP TO BE GIVEN IN ATTEMPT TO DECREASE RATE AT THIS TIME.
--- NOTE | 2020-01-07 13:56 | NUR ---
RESP RATE Patient noted to have rr of 19 breaths per min. Goal is to have asynchrony with ventilator. Prn given. Will continue to monitor.
[2020-01-07] MEDS: ROCURONIUM 10MG/ML 10ML VIAL IV PRN (13:57)
--- NOTE | 2020-01-07 14:25 | NUR ---
Proposal Consultant updated See new order/notes.
[2020-01-07] MEDS: PROPOFOL 100 ML IV SCH (14:40)
--- NOTE | 2020-01-07 18:09 | NUR ---
Respiratory note: RECEIVED PT ON VENT V17, VENT CONNECTED TO RED OUTLET AND O2 SOURCE. ALARMS ARE SET AND AUDIBLE. AMBU BAG AND MASK AT BEDSIDE. BS ARE FINE COURSE SXD VIA TRACH FOR SCANT SILVER. TRACH SITE INSPECTED NOTED PRESSURE WOUND UNDERNEATH TRACH FLANGE. RNS AND RT TEAM AWARE. MED NEB TX GIVEN INLINE WITHOUT ADVERSE REACTION NOTED. PT HAS 2 GUARDS PRESENT AT BEDSIDE. SPARE TRACH AT BEDSIDE. RT NAME AND PAGER ASSIGNMENT WRITTEN ON PTS ROOM BOARD. PTS CURRENT TEMP IS 98.8F.
[2020-01-07] MEDS ORDERED: DIGOXIN (250MCG/ML) 2 ML AMPULE IV ONE (19:45)
--- NOTE | 2020-01-07 19:48 | NUR ---
DIGOXIN- CLARIFICATION PENDING DR. HUMPHREYS REQUESTING PATIENT TO RECEIVE DIGOXIN IVP DAILY ON WEDNESDAY, WEDNESDAY, WEDNESDAY AND WEDNESDAY. 1X DOSE SET FOR TODAY. NOC NURSE INFORMED TO NOTIFY DAY SHIFT TO HAVE PHARMACY CORRECT DOSAGE FOR WEDNESDAY OPTION WAS NOT AVAILABLE.
--- NOTE | 2020-01-07 20:00 | NUR ---
Opening Shift Note Assumed care of patient, non verbal. No S/S of distress/SOB or pain, rr between 22-24, breath sounds are coarse. Tracheostomy tube in place. Continue to monitor for changes Q1hr and PRN. Side rails up x2. Bed locked in lowest position. Call light within reach. 2 guards at bedside. Cuffs on bilateral ankles. No skin breakdown noted. Goldstein intact, draining down the gravity, clear yellow. Central line intact, fluids running through central line, see spread sheet. Chest tube leaking, md palacio per report. Dressings are intact. pt is on versed 15 fentanyl 300 levo 4
--- NOTE | 2020-01-07 20:10 | NUR ---
Respiratory note: AT BEDSIDE FOR ROUTINE VENT CHECK. SXD VIA TRACH FOR MODERATE THICK SILVER. NO VENT CHANGES MADE AT THIS TIME WILL CONTINUE TO MONITOR. PTS CURRENT TEMP IS 98.6F.
[2020-01-07] MEDS: SOD CHL 0.9%/ KCL 20MEQ 1,000 ML IV SCH (21:00)
[2020-01-07] MEDS: NOREPINEPHRINE 8 MG/250ML KIT 250 ML IV SCH (22:28)
--- NOTE | 2020-01-07 22:43 | NUR ---
COOLING MEASURE ARE TAKEN - T 99.3
--- NOTE | 2020-01-07 23:52 | NUR ---
PO MEDICATION HELD LACTULOSE HELD DUE TO HIGH RESIDUALS. WILL CONTINUE TO MONITOR.
[2020-01-08] VITALS (114 sets, daily range): BP systolic 84–145; BP diastolic 57–84
--- NOTE | 2020-01-08 00:05 | NUR ---
Respiratory note: AT BEDSIDE FOR ROUTINE VENT CHECK. NO VENT CHANGES MADE AT THIS TIME. PTS CURRENT TEMP IS 99.7F. WILL CONTINUE TO MONITOR.
[2020-01-08] MEDS: MIDAZOLAM DRIP 50 mg/50mL 50 ML IV SCH ×4 (01:00→22:15)
[2020-01-08] MEDS: fentaNYL Drip 2500mCg/250mlNS 250 ML IV SCH ×2 (01:02→10:09)
--- NOTE | 2020-01-08 02:10 | NUR ---
PM CARES WASHCLOTH BATH AND PARTIAL BED KIANA CHANGE PROVIDED
--- NOTE | 2020-01-08 02:32 | NUR ---
Respiratory note: AT BEDSIDE FOR ROUTINE VENT CHECK. NO VENT CHANGES MADE AT THIS TIME. PTS CURRENT TEMP IS 99.3F. WILL CONTINUE TO MONITOR.
[2020-01-08] MEDS: ACCU-CHEK COMFORT CURVE STRIP VI SCH ×3 (06:00→17:47)
[2020-01-08] MEDS: InsuLIN REG 1unit/0.01ml Soln (100units/ml) SC SCH ×3 (06:00→17:47)
--- NOTE | 2020-01-08 06:07 | NUR ---
UPDATED TANK PUMPER FROM [facility] REGARDING PTS STATUS AND POC
[2020-01-08] MEDS: ALBUTEROL SULF 2.5 MG/0.5ML(0.5%) NEB SOLN NEB SCH ×3 (06:19→18:25)
[2020-01-08] MEDS: IPRATROPIUM BROM 0.5 MG/2.5ML INH SOL NEB SCH ×3 (06:19→18:24)
[2020-01-08] MEDS: ACETYLCYSTEINE 10 %(100MG/ML) SOL 4ML NEB SCH ×3 (06:20→18:25)
[2020-01-08] MEDS: METOCLOPRAMIDE HCL 5MG/ml INJ 2ml VIAL IV SCH ×3 (07:06→21:48)
[2020-01-08] MEDS: LACTULOSE 20Gm/30ML SOLN PO SCH ×3 (07:06→18:30)
--- NOTE | 2020-01-08 08:25 | NUR ---
PT UNSTABLE FOR TRANSFER TO CT AT THIS TIME.
[2020-01-08] MEDS: AMIODARONE HCL 200 MG TAB PO SCH ×2 (09:52→21:48)
[2020-01-08] MEDS: ENOXAPARIN SOD 40 MG/0.4 ML SYRINGE SC SCH (09:53)
[2020-01-08] MEDS: MICAFUNGIN SODIUM 100 MG in SODIUM CHL 0.9% 100 ML IV SCH (09:53)
[2020-01-08] MEDS: PANTOPRAZOLE 40 MG/10 ML VIAL INJ IV SCH (09:53)
[2020-01-08] MEDS: SODIUM CHLOR 0.9% PF (SALINE LOCK) 10ML VIAL/SYR IV SCH ×2 (09:53→21:50)
[2020-01-08] MEDS: DIGOXIN (250MCG/ML) 2 ML AMPULE IV SCH (09:53)
[2020-01-08] MEDS: INSULIN LANTUS (GLARGINE) 1 /0.01ml (100units/ml) SC SCH ×2 (09:58→22:00)
--- NOTE | 2020-01-08 12:06 | NUR ---
I received a call from Dr. Coleman letting me know that this patient no longer needs to be transferred to higher level of care. I spoke with Dr. Miller, he already spoke with Dr. Coleman and agrees that patient does not need transfer to higher level of care at this time. I spoke with [facility] Insulation Manager Estela and made her aware-I also relayed this information to nurse Arriaza in ICU.
[2020-01-08] MEDS: SOD CHL 0.9%/ KCL 20MEQ 1,000 ML IV SCH ×2 (13:40→21:49)
--- NOTE | 2020-01-08 13:46 | NUR ---
Nutrition Follow-up note Wt.: 81.6 kg Pt reintubated sleeping when rounded this morning. Pt with EN nutrition support of Glucerna 1.2 @ 42 ml/hr, with pt tolerating. Will continue to monitor PO intake, PN regimen, skin status, pertinent labs and weight trends. Will f/u in 2 to 3 days. Est. energy needs: 7299-6053 kcals (20-25 kcal/kgBW). Est. protein needs: 101-126 gms/day (1.2-1.5 gm/kgBW) - Prealbumin 9.6 L (12/24/19) Labs 01/02: Na 147 H, A1c 10.8 H, Cl 118 H, Ca 8.0 L, Albumin 1.7 L GI: Last BM noted on 12/24/19 per RN doc. Skin: Irwin scale 11, high risk, P/U. Please refer to wound assessment report for full details. PES: 1) Altered nutrition related lab values r/t current medical condition aeb hyponatremia, elevated RFTs, hyperglycemia, hypocalcemia, elevated bilirubin severe hypoalbuminemia Recommendations: 1) Suggest tapering and D/C PN if pt can tolerate 60% energy needs from PO intake. 2) Continue current plan of care.
[2020-01-08] MEDS: PROPOFOL 100 ML IV SCH (14:40)
--- NOTE | 2020-01-08 14:52 | NUR ---
Resumed care at 0750, orders reviewed and ongoing assessments being done. Being treated for multiple problems and remains ventilatory dependant. Sedation infusing for comfort. Does open eyes slightly when spoken to and when rendering care. Chest tube remains intact to the right upper chest. Large air leak grade 5, doctors aware of leak. Very mild crepitus felt underneath chest tube insertion site. Dr. Miller rounded at 1230, discussed condition and plan of care. Taken to radiology for CT scan of the chest at 1300. Escorted by Alissa RODRIGUEZ and Teresita RT and radiology staff. Returned to unit without incident.
--- NOTE | 2020-01-08 17:36 | NUR ---
Contacted Dr. Miller and lois to titrate Levophed gtt by 1mcg/min every 5 minutes. Order changed in Levophed protocol.
[2020-01-08] MEDS: NOREPINEPHRINE 8 MG/250ML KIT 250 ML IV SCH (17:45)
--- NOTE | 2020-01-08 18:55 | NUR ---
Restarted tube feeding at 1700 running at 30/hr. Goal rate 65ml/hr.
[2020-01-09] VITALS (92 sets, daily range): BP systolic 89–125; BP diastolic 56–79
[2020-01-09] MEDS: MIDAZOLAM DRIP 50 mg/50mL 50 ML IV SCH ×4 (02:03→23:16)
[2020-01-09 04:04] LABS: Basophils # (auto) 0.1 10 ^3/uL (0-0.2); Hemoglobin 9.3 g/dL (13.5-17.5); Lymphocytes # (auto) 2.1 10 ^3/uL (0.4-5.4); Monocytes # (auto) 0.4 10 ^3/uL (0-1.3)
[2020-01-09 04:08] LABS: Basophils % (auto) 0.6 % (0.0-2.0); Eosinophils # (auto) 0.4 10 ^3/uL (0-0.8); Eosinophils % (auto) 3.8 % (0.0-7.0); Hematocrit 28.9 % (41.0-53.0); Lymphocytes % (auto) 17.7 % (10.0-50.0); Mean Corpuscular Hemoglobin 27.9 pg (28.0-32.0); Mean Corpuscular Hgb Conc. 32.2 g/dL (32.0-36.0); Mean Corpuscular Volume 86.7 fL (80.0-100.0); Monocytes % (auto) 3.6 % (0.0-12.0); Neutrophils # (auto) 8.7 10 ^3/uL (1.6-8.6); Neutrophils % (auto) 74.3 % (37.0-80.0); Nucleated Red Blood Cells % 0.1 %; Platelet Count (auto) 571 10^3/uL (140-450); Red Blood Cells 3.33 10^6/uL (4.5-5.90); White Blood Cell 11.7 10^3/uL (4.4-10.8)
[2020-01-09 04:13] LABS: Red Cell Distribution Width 21.1 % (11.8-14.3)
[2020-01-09 04:22] LABS: Calcium 7.7 mg/dL (8.5-10.1); Potassium 3.5 mmol/L (3.5-5.1)
[2020-01-09 04:24] LABS: BUN/Creatinine Ratio 13.5
[2020-01-09] MEDS: InsuLIN REG 1unit/0.01ml Soln (100units/ml) SC SCH ×4 (06:00→18:11)
[2020-01-09] MEDS: ACCU-CHEK COMFORT CURVE STRIP VI SCH ×5 (06:00→23:59)
[2020-01-09] MEDS: LACTULOSE 20Gm/30ML SOLN PO SCH ×5 (06:00→23:59)
[2020-01-09] MEDS: METOCLOPRAMIDE HCL 5MG/ml INJ 2ml VIAL IV SCH ×3 (06:00→21:53)
[2020-01-09] MEDS: ALBUTEROL SULF 2.5 MG/0.5ML(0.5%) NEB SOLN NEB SCH ×3 (06:13→18:26)
[2020-01-09] MEDS: IPRATROPIUM BROM 0.5 MG/2.5ML INH SOL NEB SCH ×3 (06:13→18:26)
[2020-01-09] MEDS: ACETYLCYSTEINE 10 %(100MG/ML) SOL 4ML NEB SCH ×3 (06:14→18:26)
[2020-01-09] MEDS: SODIUM CHLOR 0.9% PF (SALINE LOCK) 10ML VIAL/SYR IV SCH ×2 (10:37→21:53)
[2020-01-09] MEDS: MICAFUNGIN SODIUM 100 MG in SODIUM CHL 0.9% 100 ML IV SCH (10:37)
[2020-01-09] MEDS: AMIODARONE HCL 200 MG TAB PO SCH ×2 (10:37→21:53)
[2020-01-09] MEDS: PANTOPRAZOLE 40 MG/10 ML VIAL INJ IV SCH (10:37)
[2020-01-09] MEDS: INSULIN LANTUS (GLARGINE) 1 /0.01ml (100units/ml) SC SCH ×2 (11:29→21:54)
--- NOTE | 2020-01-09 12:30 | NUR ---
DR. CASTELLON AT BEDSIDE: ORDERS MD UPDATED ON PT'S CURRENT STATUS, LABS AND HEMODYNAMICS AT THIS TIME. ORDERS GIVEN AND TO BE CARRIED OUT. WILL CONTINUE TO MONITOR.
[2020-01-09] MEDS: PROPOFOL 100 ML IV SCH (14:40)
[2020-01-09] MEDS: NOREPINEPHRINE 8 MG/250ML KIT 250 ML IV SCH (14:47)
[2020-01-09] MEDS: FLUCONAZOLE 200MG/100ML 100 ML IV SCH ×2 (15:26→16:10)
--- NOTE | 2020-01-09 15:30 | NUR ---
RECEIVED PHONE CALL FROM BENIGNO LUQUE ON SENIOR CARE UPDATE HIM ON PT'S CURRENT STATUS, GTT'S AND HEMODYNAMICS AT THIS TIME. CONTINUE CARE.
--- NOTE | 2020-01-09 19:45 | NUR ---
OPENING NOTE RECEIVED REPORT FROM DAY SHIFT RN AND ASSUMED CARE OF PT. PT CURRENTLY TRACHED AND SEDATED WITH MECHANICAL VENTILATOR IN PLACE. SEDATION IS CURRENTLY RUNNING- FENT AT 300 MCG AND VERSED AT 15 MCG TO RIGHT IG TLC. PT IS FLAT, CALM. PUPILS 3 MM IN SIZE AND BRISK. NO S/S OF PAIN NOTED. PT WITHDRAWS TO PAIN AND GRIMACES WHEN STIMULATED. RECTAL THERMOMETER IN PLACE. HR IS 60'S-70'S SR WITH NO ECTOPY NOTED. BP STABLE RUNNING IN LOW 100'S-110'S SYSTOLIC. PULSES PALPABLE. NO S/S OF RESPIRATORY DISTRESS NOTED. RIGHT NARE NG TUBE IN PLACE AND RUNNING TUBE FEEDINGS AT 30 ML/HR. 10 ML OF RESIDUALS NOTED. MAY CATHETER IN PLACE AND DRAINING TO GRAVITY APPROPRIATELY. SCDS APPLIED TO BLE. PT ON SPECIALTY MATTRESS. WILL CONTINUE TO MONITOR AND ASSESS PT.
--- NOTE | 2020-01-09 21:15 | NUR ---
COOLING MEASURES INITIATED RECTAL TEMP 100.2. ICE PACKS APPLIED TO GROIN AND AXILLARY AREA. COOL WASH CLOTH APPLIED TO PTS FOREHEAD.
--- NOTE | 2020-01-09 22:01 | NUR ---
AMIO HELD AMIO PO HELD FOR HR OF 68. PT CURRENTLY RUNNING NSR WITH NO ECTOPY NOTED. WILL MAKE AWARE.
--- NOTE | 2020-01-09 22:02 | NUR ---
TUBE FEEDING/NG ASSESSMENT TUBE FEEDINGS CURRENTLY RUNNING AT 30 ML/HR. RESIDUAL CHECKED AND 10 ML NOTED. TUBE POSITIVELY PLACED, IRRIGATED, AND TUBE FEEDINGS CONTINUED.
[2020-01-09] MEDS: SOD CHL 0.9%/ KCL 20MEQ 1,000 ML IV SCH (23:14)
[2020-01-10] VITALS (106 sets, daily range): BP systolic 87–130; BP diastolic 52–74
[2020-01-10] MEDS: InsuLIN REG 1unit/0.01ml Soln (100units/ml) SC SCH ×5 (00:14→23:46)
--- NOTE | 2020-01-10 00:15 | NUR ---
LACTULOSE HELD UNDER EMAR ADMINISTRATION IT SAYS TO ADMIN UNTIL BM. PT HAD MODERATE LOOSE STOOL ON DAY SHIFT.
--- NOTE | 2020-01-10 03:13 | NUR ---
PT CARE GAVE PT BED BATH AND FULL KIANA CHANGE. APPLIED LOTION TO AREAS OF DRYNESS. ASSESSED SKIN WITH NO NEW CHANGES NOTED AT THIS TIME. OPTIFOAM TO SACRUM STILL IN PLACE. GABY CARE/ CATHETER CARE PREFORMED. ORAL CARE DONE AND PT TURNED.
[2020-01-10] MEDS: MIDAZOLAM DRIP 50 mg/50mL 50 ML IV SCH ×6 (03:23→23:15)
[2020-01-10] MEDS: fentaNYL Drip 2500mCg/250mlNS 250 ML IV SCH ×3 (03:23→19:45)
--- NOTE | 2020-01-10 06:05 | NUR ---
TUBE FEEDING ASSESSMENT TUBE FEEDINGS CONTINUED THROUGHOUT THE NIGHT. RESIDUALS WHEN CHECKED THIS AM WERE 20 ML. FEEDINGS CONTINUED AT 30 ML/HR.
[2020-01-10] MEDS: METOCLOPRAMIDE HCL 5MG/ml INJ 2ml VIAL IV SCH ×3 (06:15→22:06)
[2020-01-10] MEDS: LACTULOSE 20Gm/30ML SOLN PO SCH ×4 (06:15→23:46)
[2020-01-10] MEDS: ACCU-CHEK COMFORT CURVE STRIP VI SCH ×4 (06:15→23:45)
[2020-01-10] MEDS: IPRATROPIUM BROM 0.5 MG/2.5ML INH SOL NEB SCH ×3 (06:25→18:38)
[2020-01-10] MEDS: ALBUTEROL SULF 2.5 MG/0.5ML(0.5%) NEB SOLN NEB SCH ×3 (06:25→18:38)
[2020-01-10] MEDS: ACETYLCYSTEINE 10 %(100MG/ML) SOL 4ML NEB SCH ×3 (06:25→18:38)
--- NOTE | 2020-01-10 08:00 | NUR ---
OPENING SHIFT NOTE: Received report from NOC RNSue. Assumed care of patient. Received patient on specialty bed, connected to bedside monitor with officers at bedside. Patient in shackles x3 to bilateral lower extremities and left upper extremity. Patient remains trached and vented with PC 22, R 16, fiO2 30% P8. Rt Anterior CT with leak noted. 65ml noted in canister. Tube feeds infusing via rt nare NGT at 30ml/hr with no residuals noted. Fentanyl running at 300mcg/hr and Versed at 15mg/hr into RT IJ TLC. Goldstein draining to gravity with clear yellow UOP. Bed with rails x4 up and in lowest position. Patient getting repositioned q2hrs/PRN due to pressure injuries to sacrum. Will continue to monitor q1hr/PRN.
[2020-01-10] MEDS: AMIODARONE HCL 200 MG TAB PO SCH ×2 (10:00→22:06)
[2020-01-10] MEDS: DIGOXIN (250MCG/ML) 2 ML AMPULE IV SCH (10:06)
[2020-01-10] MEDS: SODIUM CHLOR 0.9% PF (SALINE LOCK) 10ML VIAL/SYR IV SCH ×2 (10:06→22:06)
[2020-01-10] MEDS: FLUCONAZOLE 200MG/100ML 100 ML IV SCH ×2 (10:06→11:14)
[2020-01-10] MEDS: PANTOPRAZOLE 40 MG/10 ML VIAL INJ IV SCH (10:06)
[2020-01-10] MEDS: INSULIN LANTUS (GLARGINE) 1 /0.01ml (100units/ml) SC SCH ×2 (10:13→22:09)
--- NOTE | 2020-01-10 11:00 | NUR ---
TUBE FEEDING: Residuals <5ml. Increased TF to 40ml/hr. Goal rate 65ml/hr.
--- NOTE | 2020-01-10 11:30 | NUR ---
Dr Coleman at bedside to see patient. States he will remove Rt Anterior CT once patient is off ventilator.
--- NOTE | 2020-01-10 12:15 | NUR ---
Dr Miller at bedside. Discussed plan of care. No new orders received.
--- NOTE | 2020-01-10 14:00 | NUR ---
TUBE FEEDINGS: Residuals <5ml. Increase TF to 50ml/hr.
--- NOTE | 2020-01-10 14:15 | NUR ---
T/C from Detention physician. Password verified. Update MD on patient status.
[2020-01-10] MEDS: MICAFUNGIN SODIUM 100 MG in SODIUM CHL 0.9% 100 ML IV SCH (14:22)
--- NOTE | 2020-01-10 14:30 | NUR ---
BP 87/52. Repositioned BP cuff. Repeat BP 84/50. Versed gtt decrease by 1mg to 14mg/hr per protocol and restarted Levophed gtt at 2mcg/hr per protocol. See IV spreadsheet.
[2020-01-10] MEDS: PROPOFOL 100 ML IV SCH (14:40)
[2020-01-10] MEDS: NOREPINEPHRINE 8 MG/250ML KIT 250 ML IV SCH (14:44)
[2020-01-10] MEDS: SOD CHL 0.9%/ KCL 20MEQ 1,000 ML IV SCH ×2 (16:06→20:45)
[2020-01-10] MEDS ORDERED: SODIUM BICARBONATE 8.4 % INJ 50ML VIAL IV ONE (16:15)
--- NOTE | 2020-01-10 16:16 | NUR ---
Dr Ayala to see patient. Orders received.
--- NOTE | 2020-01-10 18:00 | NUR ---
TUBE FEEDINGS: Residuals <5ml. Increased to goal rate of 65ml/hr.
--- NOTE | 2020-01-10 18:41 | NUR ---
CLOSING SHIFT NOTE: Patient remains on specialty bed, no s/s of distress, connected to bedside monitor and officers at bedside. Patient remains in shackles x3 to bilateral lower extremities and left upper extremity. Patient remains trach vent on PC22, R16, fiO2 30% and P8. Tube feedings now running at goal rate of 65ml/hr with <5ml residuals. Patient on Versed at 12mg/hr, Fentanyl 250mcg/hr and is off of Levophed as of 1814. Goldstein draining clear yellow UOP. No BM this shift, lactulose given. Cooling measures in place for Tmax of 100.4. Dressing to sacrum C/D/I; continue to reposition q2hrs/PRN. Report to be given to oncoming N[facility]IA RN.
--- NOTE | 2020-01-10 19:45 | NUR ---
OPENING NOTE RECEIVED REPORT FROM DAY SHIFT RN AND ASSUMED CARE OF PT. PT CURRENTLY TRACHED AND SEDATED WITH MECHANICAL VENTILATOR IN PLACE. SEDATION IS CURRENTLY RUNNING- FENT AT 250 MCG AND VERSED AT 12 MCG TO RIGHT IG TLC. PT IS FLAT, CALM. PUPILS 3 MM IN SIZE AND BRISK. NO S/S OF PAIN NOTED. PT WITHDRAWS TO PAIN AND GRIMACES WHEN STIMULATED. RECTAL THERMOMETER IN PLACE READING 100.4. HR IS 70'S-80'S SR WITH NO ECTOPY NOTED. BP STABLE RUNNING IN LOW 100'S-110'S SYSTOLIC, LEVOPHED OFF. PULSES PALPABLE. NO S/S OF RESPIRATORY DISTRESS NOTED. RIGHT NARE NG TUBE IN PLACE AND RUNNING TUBE FEEDINGS AT 65 ML/HR. 0 ML OF RESIDUALS NOTED. MAY CATHETER IN PLACE AND DRAINING TO GRAVITY APPROPRIATELY. SCDS APPLIED TO BLE. PT ON SPECIALTY MATTRESS. WILL CONTINUE TO MONITOR AND ASSESS PT.
--- NOTE | 2020-01-10 20:05 | NUR ---
COOLING MEASURES CONTINUED FOR RECTAL TEMP OF 100.4. WILL CONTINUE TO MONITOR.
--- NOTE | 2020-01-10 20:12 | NUR ---
TUBE FEEDING ASSESSMENT PT HAS TUBE FEEDINGS RUNNING AT GOAL RATE OF 65 ML/HR. TUBE IS POSITIVELY PLACED VIA AUSCULTATION.0 RESIDUALS NOTED. FLUSHED WITH 15 ML WATER. WILL CONTINUE TO ASSESS PT TOLERANCE.
[2020-01-10] MEDS: ACETAMINOPHEN 325 MG TAB PO PRN (23:00)
--- NOTE | 2020-01-10 23:48 | NUR ---
TEMP REASSESSMENT PT TEMPERATURE NOW 100.2 WITH ICE PACKS, COOL WASH CLOTH, FAN AIMED AT PT. TYLENOL ADMINISTERED EARLIER (SEE e-Mar). COOLING MEASURES KEPT IN PLACE.
--- NOTE | 2020-01-10 23:48 | NUR ---
LACTULOSE HELD PER DOSE INSTRUCTIONS- HOLD UNTIL BM. PT HAD SMALL, YELLOW SMEAR BM THIS EVENING.
[2020-01-11] VITALS (105 sets, daily range): BP systolic 80–117; BP diastolic 50–74
--- NOTE | 2020-01-11 00:35 | NUR ---
Respiratory note: TRACH CARE DONE USING STERILE TECHNIQUE, UNEVENTFUL. AMBU BAG AT BEDSIDE. AREA AROUND STOMA CLEANED AND DRIED, REDNESS AND SKIN BREAKDOWN NOTED UNDER TRACH FLANGE. RN NOTIFIED, PICTURES TAKEN TO SUBMIT TO RUG SAMPLE BEVELER. INNER CANNULA CLEANED, TRACH TIES AND GAUZE CHANGED, AND CUFF PRESSURE CHECKED. PT TOLERATED WELL.
--- NOTE | 2020-01-11 00:39 | NUR ---
WOUND CARE PHOTOS TOOK PHOTOS OF PTS TRACHELOTOMY SITE FOR SKIN BREAKDOWN. THERE IS A YELLOW/RED OPEN WOUND UNDERNEATH TRACH. DOCUMENTATION PLACED IN ENVELOPE FOR SECURITY OPERATIONS CENTER OPERATOR TO ROTARY SHEAR OPERATOR.
--- NOTE | 2020-01-11 02:37 | NUR ---
PT CARE GAVE PT BED BATH AND FULL KIANA CHANGE. APPLIED LOTION TO AREAS OF DRYNESS. ASSESSED SKIN WITH NO NEW CHANGES OTHER THAN WHAT HAS BEEN DOCUMENTED NOTED AT THIS TIME. OPTIFOAM TO SACRUM CHANGED AND STILL IN PLACE. GABY CARE/CATHETER CARE PREFORMED. ORAL CARE DONE AND PT TURNED.
[2020-01-11] MEDS: MIDAZOLAM DRIP 50 mg/50mL 50 ML IV SCH ×3 (03:10→21:53)
[2020-01-11] MEDS: fentaNYL Drip 2500mCg/250mlNS 250 ML IV SCH ×3 (03:43→23:19)
[2020-01-11 04:18] LABS: Basophils # (auto) 0 10 ^3/uL (0-0.2); Basophils % (auto) 0.3 % (0.0-2.0); Eosinophils # (auto) 0.4 10 ^3/uL (0-0.8); Eosinophils % (auto) 2.7 % (0.0-7.0); Hematocrit 27.4 % (41.0-53.0); Hemoglobin 8.6 g/dL (13.5-17.5); Lymphocytes # (auto) 1.4 10 ^3/uL (0.4-5.4); Lymphocytes % (auto) 10.3 % (10.0-50.0); Mean Corpuscular Hgb Conc. 31.5 g/dL (32.0-36.0); Mean Corpuscular Volume 89.1 fL (80.0-100.0); Monocytes # (auto) 0.4 10 ^3/uL (0-1.3); Monocytes % (auto) 2.8 % (0.0-12.0); Neutrophils # (auto) 11.7 10 ^3/uL (1.6-8.6); Neutrophils % (auto) 83.9 % (37.0-80.0); Nucleated Red Blood Cells % 0.1 %; Platelet Count (auto) 473 10^3/uL (140-450); Red Blood Cells 3.07 10^6/uL (4.5-5.90); White Blood Cell 13.9 10^3/uL (4.4-10.8)
[2020-01-11 04:19] LABS: Red Cell Distribution Width 21.6 % (11.8-14.3)
[2020-01-11 04:24] LABS: Albumin 1.5 g/dL (3.4-5.0); Calcium 7.8 mg/dL (8.5-10.1); Potassium 3.8 mmol/L (3.5-5.1)
[2020-01-11 04:28] LABS: BUN/Creatinine Ratio 14.6; Bilirubin, Total 0.5 mg/dL (0.2-1.0); Total Protein 6.6 g/dL (6.4-8.2)
[2020-01-11] MEDS: InsuLIN REG 1unit/0.01ml Soln (100units/ml) SC SCH ×3 (06:00→17:31)
[2020-01-11] MEDS: IPRATROPIUM BROM 0.5 MG/2.5ML INH SOL NEB SCH ×3 (06:09→18:31)
[2020-01-11] MEDS: ALBUTEROL SULF 2.5 MG/0.5ML(0.5%) NEB SOLN NEB SCH ×3 (06:09→18:31)
[2020-01-11] MEDS: ACETYLCYSTEINE 10 %(100MG/ML) SOL 4ML NEB SCH ×3 (06:10→18:31)
--- NOTE | 2020-01-11 06:15 | NUR ---
TRACH/SECRETIONS GURGLING SOUND HEARD FROM TRACH. RT AT BEDSIDE- CUFF PRESSURE SUFFICIENT AND TRACH CONNECTED APPROPRIATELY. PT POOLING THIN, YELLOW SECRETIONS IN THE POSTERIOR THROAT. WILL SUCTION/REASSESS.
[2020-01-11] MEDS: ACCU-CHEK COMFORT CURVE STRIP VI SCH ×4 (06:21→23:40)
[2020-01-11] MEDS: METOCLOPRAMIDE HCL 5MG/ml INJ 2ml VIAL IV SCH ×3 (06:21→21:53)
[2020-01-11] MEDS: LACTULOSE 20Gm/30ML SOLN PO SCH ×3 (06:21→17:30)
--- NOTE | 2020-01-11 06:44 | NUR ---
TUBE FEEDING REASSESSMENT 20 ML OF RESIDUAL NOTED. CONTINUED FEEDINGS AT GOAL RATE OF 65 ML/HR.
--- NOTE | 2020-01-11 07:22 | NUR ---
CARE ENDORSED TO DAY SHIFT RN.
[2020-01-11] MEDS: ACETAMINOPHEN 325 MG TAB PO PRN ×3 (09:16→23:40)
[2020-01-11] MEDS: FLUCONAZOLE 200MG/100ML 100 ML IV SCH ×2 (09:45→10:33)
[2020-01-11] MEDS: INSULIN LANTUS (GLARGINE) 1 /0.01ml (100units/ml) SC SCH ×2 (10:00→22:09)
[2020-01-11] MEDS: AMIODARONE HCL 200 MG TAB PO SCH ×2 (10:00→21:54)
[2020-01-11] MEDS: SODIUM CHLOR 0.9% PF (SALINE LOCK) 10ML VIAL/SYR IV SCH ×2 (10:00→22:09)
[2020-01-11] MEDS: PANTOPRAZOLE 40 MG/10 ML VIAL INJ IV SCH (10:00)
[2020-01-11] MEDS: MICAFUNGIN SODIUM 100 MG in SODIUM CHL 0.9% 100 ML IV SCH (12:08)
[2020-01-11] MEDS: SOD CHL 0.9%/ KCL 20MEQ 1,000 ML IV SCH (12:09)
--- NOTE | 2020-01-11 13:10 | NUR ---
DR. CASTELLON HERE TO SEE PATIENT. SEE MD NOTES AND EMR FOR ANY NEW ORDERS.
--- NOTE | 2020-01-11 13:15 | NUR ---
WOUND CARE NOTE: PATIENT NOTED UPON ASSESSMENT BY BEDSIDE NURSE TO HAVE NEW SKIN INTEGRITY CONCERN AT HIS TRACHEOSTOMY SITE. PHOTOGRAPHS TAKEN AT THAT TIME BY BEDSIDE NURSE FOR REFERENCE. DR. CASTELLON IN TO SEE PATIENT AT THIS TIME, ADVISED HIM OF PATIENT'S MUCOSAL ULCER TO THE TRACH SITE. NEW ORDERS: BID APPLICATION WITH BACITRACIN TO WOUND, WITH OPTIFOAM CUT, PLACED UNDER TRACH DEVICE TO HELP CUSHION. WOUND CARE TEAM WILL CONTINUE TO MONITOR. Addendum: 01/11/20 at 1748 by Denisha Thornton RN Amended: Links added.
--- NOTE | 2020-01-11 13:40 | NUR ---
DR. JUAN HERE TO SEE PATIENT. SEE MD NOTES AND EMR FOR ANY NEW ORDERS.
[2020-01-11] MEDS: PROPOFOL 100 ML IV SCH (14:40)
[2020-01-11] MEDS: NOREPINEPHRINE 8 MG/250ML KIT 250 ML IV SCH (17:45)
--- NOTE | 2020-01-11 19:35 | NUR ---
OPENING NOTE RECEIVED REPORT FROM DAY SHIFT RN AND ASSUMED CARE OF PT. PT CURRENTLY TRACHED AND SEDATED WITH MECHANICAL VENTILATOR IN PLACE. SEDATION IS CURRENTLY RUNNING- FENT AT 200 MCG AND VERSED AT 10 MCG TO RIGHT IG TLC. PT IS FLAT, CALM. PUPILS 3 MM IN SIZE AND BRISK. NO S/S OF PAIN NOTED. PT WITHDRAWS TO PAIN AND GRIMACES WHEN STIMULATED. RECTAL THERMOMETER IN PLACE READING 100.4, DAY SHIFT RN GAVE TYLENOL IN 1800 HOUR. HR IS 80'S-90'S SR WITH NO ECTOPY NOTED. BP STABLE RUNNING IN LOW 100'S-110'S SYSTOLIC, LEVOPHED OFF. PULSES PALPABLE. NO S/S OF RESPIRATORY DISTRESS NOTED. RIGHT NARE NG TUBE IN PLACE AND RUNNING TUBE FEEDINGS AT 65 ML/HR. < 10 ML OF RESIDUALS NOTED. MAY CATHETER IN PLACE AND DRAINING TO GRAVITY APPROPRIATELY. SCDS APPLIED TO BLE. PT ON SPECIALTY MATTRESS. WILL CONTINUE TO MONITOR AND ASSESS PT.
--- NOTE | 2020-01-11 20:15 | NUR ---
TUBE FEEDING ASSESSMENT <10 ML RESIDUAL NOTED. POSITIVE PLACEMENT CONFIRMED VIA AUSCULTATION. TUBE FEEDINGS CONTINUED AT 65 ML/HR.
--- NOTE | 2020-01-11 21:00 | NUR ---
TEMP ASSESSMENT PT TEMP IS 100.4 RECTALLY. DAY SHIFT RN GAVE TYLENOL IN HOUR OF 1800. COOLING MEASURES INITIATED- FAN IN PLACE WITH ICE PACKS APPLIED TO GROIN AND AXILLARY AREA.
[2020-01-11] MEDS: BACITRACIN TOP OINT 1 UD PKG TOP SCH (22:00)
--- NOTE | 2020-01-11 22:14 | NUR ---
TRACH WOUND CARE APPLIED OINTMENT AND OPTIFOAM TO TRACHEAL MUCOSAL ULCER PER MD ORDER AND RECORDS AND INFORMATION MANAGER RECOMMENDATION.
[2020-01-12] VITALS (106 sets, daily range): BP systolic 87–136; BP diastolic 54–82
[2020-01-12] MEDS: InsuLIN REG 1unit/0.01ml Soln (100units/ml) SC SCH ×4 (00:02→17:44)
--- NOTE | 2020-01-12 00:15 | NUR ---
LACTULOSE HELD PER DOSE INSTRUCTIONS- HOLD UNTIL BM. PT HAD SMALL, YELLOW LIQUID SMEAR BM THIS EVENING.
--- NOTE | 2020-01-12 02:30 | NUR ---
CENTRAL LINE DRESSING CHANGE DONE USING STERILE TECHNIQUE. OLD DRESSING REMOVED. BIOPATCH IN PLACE. NEW DRESSING TIMED, DATED, AND INITIALED. NO S/S OF INFECTION NOTED.
[2020-01-12 04:05] LABS: Eosinophils # (auto) 0.1 10 ^3/uL (0-0.8); Eosinophils % (auto) 0.9 % (0.0-7.0); Hemoglobin 8.7 g/dL (13.5-17.5); Lymphocytes # (auto) 1.6 10 ^3/uL (0.4-5.4); Monocytes # (auto) 0.4 10 ^3/uL (0-1.3)
[2020-01-12 04:06] LABS: Basophils # (auto) 0 10 ^3/uL (0-0.2); Basophils % (auto) 0.2 % (0.0-2.0); Hematocrit 27.2 % (41.0-53.0); Lymphocytes % (auto) 10.6 % (10.0-50.0); Mean Corpuscular Hemoglobin 28.4 pg (28.0-32.0); Mean Corpuscular Hgb Conc. 31.9 g/dL (32.0-36.0); Monocytes % (auto) 2.7 % (0.0-12.0); Neutrophils # (auto) 12.6 10 ^3/uL (1.6-8.6); Neutrophils % (auto) 85.6 % (37.0-80.0); Platelet Count (auto) 499 10^3/uL (140-450); Red Blood Cells 3.06 10^6/uL (4.5-5.90); White Blood Cell 14.7 10^3/uL (4.4-10.8)
[2020-01-12 04:07] LABS: Red Cell Distribution Width 21.3 % (11.8-14.3)
[2020-01-12] MEDS: SOD CHL 0.9%/ KCL 20MEQ 1,000 ML IV SCH (04:23)
[2020-01-12 04:34] LABS: BUN/Creatinine Ratio 17.3; Calcium 7.9 mg/dL (8.5-10.1); Potassium 3.8 mmol/L (3.5-5.1)
[2020-01-12] MEDS: ACCU-CHEK COMFORT CURVE STRIP VI SCH ×3 (06:00→17:44)
[2020-01-12] MEDS: ACETYLCYSTEINE 10 %(100MG/ML) SOL 4ML NEB SCH ×3 (06:00→18:14)
[2020-01-12] MEDS: METOCLOPRAMIDE HCL 5MG/ml INJ 2ml VIAL IV SCH ×3 (06:34→22:00)
[2020-01-12] MEDS: LACTULOSE 20Gm/30ML SOLN PO SCH ×4 (06:35→17:44)
[2020-01-12] MEDS: IPRATROPIUM BROM 0.5 MG/2.5ML INH SOL NEB SCH ×3 (06:39→18:14)
[2020-01-12] MEDS: ALBUTEROL SULF 2.5 MG/0.5ML(0.5%) NEB SOLN NEB SCH ×3 (06:39→18:14)
[2020-01-12] MEDS: FLUCONAZOLE 200MG/100ML 100 ML IV SCH ×2 (09:39→10:35)
[2020-01-12] MEDS: BACITRACIN TOP OINT 1 UD PKG TOP SCH ×2 (10:00→22:00)
[2020-01-12] MEDS: PANTOPRAZOLE 40 MG/10 ML VIAL INJ IV SCH (10:00)
[2020-01-12] MEDS: DIGOXIN (250MCG/ML) 2 ML AMPULE IV SCH (10:00)
[2020-01-12] MEDS: AMIODARONE HCL 200 MG TAB PO SCH (10:00)
[2020-01-12] MEDS: INSULIN LANTUS (GLARGINE) 1 /0.01ml (100units/ml) SC SCH ×2 (10:23→22:00)
--- NOTE | 2020-01-12 10:40 | NUR ---
Respiratory note: PT PLACED ON TRACH COLLAR COOL AEROSOL 10 LPM AND 30% FI02. PT EDUCATED ON TRIAL AND MONITORED THROUGHOUT.
--- NOTE | 2020-01-12 11:05 | NUR ---
Respiratory note: PT PLACED BACK ON VENT. PT RR INCREASED AND PT EXPRESSED HE WAS TIRED AND IT WAS GETTING HARDER TO BREATH ON TRACH COLLAR.
--- NOTE | 2020-01-12 12:30 | NUR ---
PATIENT VOMITED YELLOW BILE. CXR DONE TO CHECK FOR POSS ASPIRATION. NGT TUBE FOUND TO BE OUT OF PLACE. THIS RN TRIED TO REPOSITION NGT AND NGT WAS NOTED TO BE CURLED INTO PATIENTS MOUTH. THIS RN REMOVED NGT AT THIS TIME. ZOFRAN GIVEN FOR N/V.
[2020-01-12] MEDS: ONDANSETRON HCL 4 MG/2 ML VIAL IV PRN ×2 (12:33→17:38)
[2020-01-12] MEDS: MICAFUNGIN SODIUM 100 MG in SODIUM CHL 0.9% 100 ML IV SCH (13:00)
--- NOTE | 2020-01-12 14:00 | NUR ---
Respiratory note: TRACH CARE DONE. STOMA SITE AND NECK CLEANED AND DRIED. INNER CANNULA CLEANED. DRAIN SPONGE CHANGED. BANDAGE UNDER FLANGE CHANGED.
[2020-01-12] MEDS: PROPOFOL 100 ML IV SCH (14:40)
--- NOTE | 2020-01-12 17:10 | NUR ---
DR. CASTELLON HERE TO SEE PATIENT. SEE MD NOTES AND EMR FOR ANY NEEW ORDERS.
[2020-01-12] MEDS: NOREPINEPHRINE 8 MG/250ML KIT 250 ML IV SCH (17:26)
--- NOTE | 2020-01-12 17:32 | NUR ---
PATIENT PROJECTILE VOMITED YELLOWISH/GREEN BILE. DR CASTELLON HERE AND MADE AWARE. NEW ORDERS TO GIVE ZOFRAN AND HAVE HEAD/ABDOMINAL CT DONE WELL CXR TO R/O CVA/PBSTRUCTION.
--- NOTE | 2020-01-12 17:57 | NUR ---
[facility] UX VISUAL DESIGNER REPORTS THAT CT SCAN IS CURRENTLY DOWN. CT WILL CALL WHEN CT IS FUNCTIONING AGAIN.
[2020-01-12] MEDS ORDERED: SODIUM BICARBONATE 8.4 % INJ 50ML VIAL IV ONE ×2 (18:15→20:00)
--- NOTE | 2020-01-12 20:00 | NUR ---
OPEN RECEIVED REPORT FROM DAY SHIFT RN AND ASSUMED CARE OF PT. PT CURRENTLY WITH 8.0 BEER STILL RUNNER COMPOUNDER TRACH CONNECTED TO MECHANICAL VENTILATOR. SEDATION IS CURRENTLY RUNNING- FENTANYL AT 35 MCG/HR . PT IS SOMEWHAT RESTLESS . EYES OPEN. ABLE TO TRACK. ABLE TO FOLLOW SIMPLE COMMAND. SR ON SHIFT SUPERINTENDENT CAUSTIC CRESYLATE. R IJ TLC IN PLACE WITH ALL PORTS PATENT AND CDI DRESSING. R. LATERAL CHEST TUBE IN PLACE DRAINING PURULENT THICK YELLOW DRAINAGE TO [facility]LE[facility] UNIT SECURED TO FLOOR. MILD AIR LEAK OBSERVED. NO CREPITUS PALPATED. DRESSING CDI. PT IS AN INMATE WITH GUARDS X [address]SIDE[address] SHACKLES IN PLACE TO JIMMY ANKLES AND L. WRIST. NO SKIN BREAKDOWN OBSERVED UNDER SHACKLES. PT WITH OPEN DTI TO SACRAL AREA WITH OPTIFOAM GENTLE SACRAL DRESSING IN PLACE. PT ON SPECIALTY AIR MATTRESS. PILLOWS USED TO OFFLOAD BONY PROMINENCES AND JIMMY HEELS. MAY TO GRAVITY. JIMMY SCD'S IN PLACE. BED IN LOWEST LOCKED POSITION. SIDE RAILS UP X 2. HOB ELEVATED 45 DEGREES ASPIRATION PREVENTION. PER REPORT PT HAD BOUTS OF VOMITING X 2 TODAY. SUCTION AT BEDSIDE. PT IN FULL VIEW OF RN STATION. WILL CONTINUE TO MONITOR.
[2020-01-12] MEDS: MIDAZOLAM DRIP 50 mg/50mL 50 ML IV SCH (22:00)
[2020-01-12] MEDS: fentaNYL Drip 2500mCg/250mlNS 250 ML IV SCH (22:00)
[2020-01-13] VITALS (96 sets, daily range): BP systolic 93–135; BP diastolic 61–93
[2020-01-13] MEDS: AMIODARONE HCL 200 MG TAB PO SCH ×3 (00:15→22:20)
[2020-01-13] MEDS: LACTULOSE 20Gm/30ML SOLN PO SCH ×5 (00:15→23:32)
[2020-01-13] MEDS: ACCU-CHEK COMFORT CURVE STRIP VI SCH ×4 (00:15→18:00)
--- NOTE | 2020-01-13 00:15 | NUR ---
NGT INSERTION 16 RWANDAN NGT INSERTED WITH NO TRAUMA TO NARES. PT TOLERATED WELL.
--- NOTE | 2020-01-13 05:00 | NUR ---
Patient bathe/linen change Patient given complete bath. Skin integrity assessed for any changes. Linens changed. Patient repositioned for comfort.
[2020-01-13 05:12] LABS: Basophils # (auto) 0 10 ^3/uL (0-0.2); Eosinophils # (auto) 0.2 10 ^3/uL (0-0.8); Lymphocytes # (auto) 1.9 10 ^3/uL (0.4-5.4); Monocytes # (auto) 0.3 10 ^3/uL (0-1.3)
[2020-01-13 05:13] LABS: Basophils % (auto) 0.5 % (0.0-2.0); Eosinophils % (auto) 2.2 % (0.0-7.0); Hematocrit 26.2 % (41.0-53.0); Hemoglobin 8.4 g/dL (13.5-17.5); Lymphocytes % (auto) 17.5 % (10.0-50.0); Mean Corpuscular Hemoglobin 27.8 pg (28.0-32.0); Mean Corpuscular Hgb Conc. 31.9 g/dL (32.0-36.0); Mean Corpuscular Volume 87.1 fL (80.0-100.0); Monocytes % (auto) 3.1 % (0.0-12.0); Neutrophils # (auto) 8.2 10 ^3/uL (1.6-8.6); Neutrophils % (auto) 76.7 % (37.0-80.0); Platelet Count (auto) 530 10^3/uL (140-450); Red Cell Distribution Width 21.3 % (11.8-14.3); White Blood Cell 10.6 10^3/uL (4.4-10.8)
[2020-01-13 05:29] LABS: BUN/Creatinine Ratio 18.4; Potassium 3.3 mmol/L (3.5-5.1)
[2020-01-13] MEDS: METOCLOPRAMIDE HCL 5MG/ml INJ 2ml VIAL IV SCH ×3 (06:00→22:20)
[2020-01-13] MEDS: InsuLIN REG 1unit/0.01ml Soln (100units/ml) SC SCH ×4 (06:00→18:00)
[2020-01-13] MEDS: IPRATROPIUM BROM 0.5 MG/2.5ML INH SOL NEB SCH ×3 (06:52→19:05)
[2020-01-13] MEDS: ALBUTEROL SULF 2.5 MG/0.5ML(0.5%) NEB SOLN NEB SCH ×3 (06:52→19:06)
[2020-01-13] MEDS: ACETYLCYSTEINE 10 %(100MG/ML) SOL 4ML NEB SCH ×3 (06:52→19:06)
[2020-01-13] MEDS: FLUCONAZOLE 200MG/100ML 100 ML IV SCH ×2 (09:50→11:39)
[2020-01-13] MEDS: PANTOPRAZOLE 40 MG/10 ML VIAL INJ IV SCH (09:50)
[2020-01-13] MEDS: INSULIN LANTUS (GLARGINE) 1 /0.01ml (100units/ml) SC SCH ×2 (10:00→22:00)
[2020-01-13] MEDS: BACITRACIN TOP OINT 1 UD PKG TOP SCH ×2 (10:19→22:20)
[2020-01-13] MEDS: SOD CHL 0.9%/ KCL 20MEQ 1,000 ML IV SCH ×2 (10:20→23:33)
[2020-01-13] MEDS: MIDAZOLAM DRIP 50 mg/50mL 50 ML IV SCH ×2 (11:43→18:50)
--- NOTE | 2020-01-13 12:31 | NUR ---
Resumed care at 0715, orders reviewed and ongoing assessments being done. Being treated for multiple problems and remains ventilatory dependant. Sedation infusing for comfort. Does open eyes when spoken to and can sustain eye contact. At times tries to mouth words but unable to make out what he is saying (with tracheostomy). Chest tube remains in place to right upper chest. No crepitus felt around insertion site. Grade 5 air leak (MD's aware of leak). Tube feeding being held. Yesterday has several episodes of projectile vomiting. No vomiting today and maintaining NGT to LIS. Is a prisoner and two guards posted to bedside. Both ankles shackled and left wrist. No skin breakdown to ankles are left wrist. Areas padded.
[2020-01-13] MEDS: MICAFUNGIN SODIUM 100 MG in SODIUM CHL 0.9% 100 ML IV SCH (13:58)
[2020-01-13] MEDS ORDERED: POTASSIUM CHL 20MEQ/100ML 100 ML IV ONE (14:15)
[2020-01-13] MEDS: PROPOFOL 100 ML IV SCH (14:40)
--- NOTE | 2020-01-13 17:21 | NUR ---
Dr. Miller and Dr. Ayala were both in today. Discussed condition and plan of care. Escorted to radiology by Caprice RODRIGUEZ and Sagrario SCHULER with radiology transport at [address] Scan of the abdomen and head. Returned to unit without incident at 1605. Meghan phoned in just now and updated her on plan of care. Addendum: 01/13/20 at 1749 by Sofiya Mixon RN RN Rodo Christianson phoned in just now and updated her on plan of care. (disregard statement, wrong patient)
[2020-01-13] MEDS: NOREPINEPHRINE 8 MG/250ML KIT 250 ML IV SCH (17:45)
--- NOTE | 2020-01-13 18:30 | NUR ---
Held 1800 scheduled lactulose, passed large loose light brown liquid stool.
[2020-01-13] MEDS: fentaNYL Drip 2500mCg/250mlNS 250 ML IV SCH (21:05)
--- NOTE | 2020-01-13 22:34 | NUR ---
HELD OPAL HELD PTS YOVANATUS FOR BLOOD GLUCOSE OF 88. PT SUGARS HAVE BEEN TRENDING IN THE 90'S-80'S PER DAY SHIFT RN.
--- NOTE | 2020-01-13 23:34 | NUR ---
HELD LACTULOSE PT HAD COPIOUS, BROWN, LOOSE STOOL BEFORE CHANGE OF SHIFT TODAY.
[2020-01-14] VITALS (100 sets, daily range): BP systolic 86–129; BP diastolic 43–79
[2020-01-14] MEDS: ACCU-CHEK COMFORT CURVE STRIP VI SCH ×5 (00:20→23:35)
[2020-01-14] MEDS: InsuLIN REG 1unit/0.01ml Soln (100units/ml) SC SCH ×5 (00:25→23:35)
[2020-01-14] MEDS: MIDAZOLAM DRIP 50 mg/50mL 50 ML IV SCH ×2 (00:57→09:47)
--- NOTE | 2020-01-14 03:00 | NUR ---
PT CARE GAVE PT BED BATH AND FULL KIANA CHANGE. ASSESSED SKIN WITH NO NEW CHANGES OTHER THAN WHAT HAS BEEN DOCUMENTED AT THIS TIME. OPTIFOAM TO SACRUM CHANGED AND STILL IN PLACE. GABY CARE/CATHETER CARE PREFORMED. ORAL CARE DONE AND PT TURNED.
[2020-01-14 04:36] LABS: Basophils # (auto) 0 10 ^3/uL (0-0.2); Eosinophils # (auto) 0.3 10 ^3/uL (0-0.8); Monocytes # (auto) 0.3 10 ^3/uL (0-1.3)
[2020-01-14 04:39] LABS: Basophils % (auto) 0.5 % (0.0-2.0); Eosinophils % (auto) 3.6 % (0.0-7.0); Hematocrit 26.1 % (41.0-53.0); Hemoglobin 8.4 g/dL (13.5-17.5); Lymphocytes # (auto) 1.6 10 ^3/uL (0.4-5.4); Lymphocytes % (auto) 18.8 % (10.0-50.0); Mean Corpuscular Hemoglobin 28.2 pg (28.0-32.0); Mean Corpuscular Hgb Conc. 32.1 g/dL (32.0-36.0); Mean Corpuscular Volume 87.9 fL (80.0-100.0); Monocytes % (auto) 3.7 % (0.0-12.0); Neutrophils # (auto) 6.2 10 ^3/uL (1.6-8.6); Neutrophils % (auto) 73.4 % (37.0-80.0); Platelet Count (auto) 570 10^3/uL (140-450); Red Blood Cells 2.97 10^6/uL (4.5-5.90); White Blood Cell 8.4 10^3/uL (4.4-10.8)
[2020-01-14 04:46] LABS: Red Cell Distribution Width 20.7 % (11.8-14.3)
[2020-01-14 04:52] LABS: Calcium 7.7 mg/dL (8.5-10.1); Potassium 3.5 mmol/L (3.5-5.1)
[2020-01-14 04:57] LABS: Albumin 1.5 g/dL (3.4-5.0); BUN/Creatinine Ratio 18.5; Bilirubin, Total 0.6 mg/dL (0.2-1.0); Total Protein 6.8 g/dL (6.4-8.2)
--- NOTE | 2020-01-14 05:30 | NUR ---
CENTRAL LINE DRESSING CHANGE RESPIRATORY THERAPIST AT BEDSIDE TO ASSIST. REMOVED PREVIOUS DRESSING USING CLEAN TECHNIQUE. APPLIED NEW CENTRAL LINE DRESSING USING STERILE TECHNIQUE. BIOPATCH IN PLACE. NO S/S OF INFECTION NOTED AROUND SITE. DRESSING IS TIMED, DATED, AND INITIALED.
[2020-01-14] MEDS: LACTULOSE 20Gm/30ML SOLN PO SCH ×4 (06:00→23:36)
[2020-01-14] MEDS: IPRATROPIUM BROM 0.5 MG/2.5ML INH SOL NEB SCH ×3 (06:00→18:08)
[2020-01-14] MEDS: ALBUTEROL SULF 2.5 MG/0.5ML(0.5%) NEB SOLN NEB SCH ×3 (06:00→18:08)
[2020-01-14] MEDS: ACETYLCYSTEINE 10 %(100MG/ML) SOL 4ML NEB SCH ×3 (06:00→18:08)
[2020-01-14] MEDS: METOCLOPRAMIDE HCL 5MG/ml INJ 2ml VIAL IV SCH ×3 (06:19→22:14)
[2020-01-14] MEDS: PANTOPRAZOLE 40 MG/10 ML VIAL INJ IV SCH (10:11)
[2020-01-14] MEDS: AMIODARONE HCL 200 MG TAB PO SCH ×2 (10:11→22:14)
[2020-01-14] MEDS: FLUCONAZOLE 200MG/100ML 100 ML IV SCH ×2 (10:11→11:25)
[2020-01-14] MEDS: BACITRACIN TOP OINT 1 UD PKG TOP SCH ×2 (10:12→22:14)
--- NOTE | 2020-01-14 10:26 | NUR ---
WOUND CARE NOTE: Wound care in to see patient for reevaluation of wounds and skin integrity monitoring. Patient continue resting on air bed in ICU Rm. 108. Patient is mechanically ventilated via trach. He need assistance in turning and his Irwin score is 12. Using Conde Abdul Faces Pain Scale, patient noted with mild pain upon turning. Skin assessment done with the assistance of patient's nurse, MICHAEL Arriaza. Patient's sacral pressure injury, looks bigger, measuring 5x5cm. It appears that surrounding dry yellow, dry skin came off, displaying red/pale pink wound. Jenise wound is pink/red, minimal serous drainage noted, no odor noted. Upper chest/distal neck open ulceration to distal trach site display 1x2cm red ulceration with pink surrounding skin, scant serous drainage noted, no odor noted. Cleansed mentioned wounds,photographed for reference and changed the dressing as ordered. Repositioned patient for comfort facing his Rt side,redistributed pressure points with pillows. Patient tolerated well. MICHAEL Arriaza and guards at bedside. Patient on EN nutritional support and Dietary is on board. RECOMMENDATION:Continuation of all wound care orders prescribed by MD, continue with skin/wound plan of care, continue monitoring by wound care while patient is hospitalized. Addendum: 01/14/20 at 1622 by Florinda Trujillo RN Amended: Links added.
[2020-01-14] MEDS: INSULIN LANTUS (GLARGINE) 1 /0.01ml (100units/ml) SC SCH ×2 (10:39→22:00)
--- NOTE | 2020-01-14 11:53 | NUR ---
Nutrition Follow-up note Wt.: 82.5 kg Pt intubated re-ventilated. Pt EN nutrition support clampied d/t pt not tolerating. TPN cannot be initiated until fungal infection is remedied per RN. Pt in no noted distress per RN doc. Will continue to monitor PO intake, PN regimen, skin status, pertinent labs and weight trends. Will f/u in 2 to 3 days. Est. energy needs: [id number] kcals (20-25 kcal/kgBW). Est. protein needs: 101-126 gms/day (1.2-1.5 gm/kgBW) - Prealbumin 9.6 L (12/24/19) Labs 01/02: A1c 10.8 H, Cl 116 H, Ca 7.7 L, Albumin 1.5 L, Alk Phos 428 H GI: Pt with incontinence, per RN doc. Skin: Irwin scale 12, high risk, P/U. Please refer to wound assessment report for full details. PES: 1) Altered nutrition related lab values r/t current medical condition aeb hyponatremia, elevated RFTs, hyperglycemia, hypocalcemia, elevated bilirubin severe hypoalbuminemia Recommendations: 1) Suggest tapering and D/C PN if pt can tolerate 60% energy needs from PO intake. 2) Continue current plan of care.
[2020-01-14] MEDS: MICAFUNGIN SODIUM 100 MG in SODIUM CHL 0.9% 100 ML IV SCH (13:30)
--- NOTE | 2020-01-14 13:58 | NUR ---
DR CASTELLON AT BEDSIDE, AWARE PRIMARY RN SETH AT LUNCH AND THIS RN COVERING. NO NEW ORDERS AT THIS TIME.
--- NOTE | 2020-01-14 14:34 | NUR ---
Resumed care at 0725, orders reviewed and ongoing assessments being done. Being treated for multiple problems and remains ventilatory dependant. Sedation infusing for comfort. Does open eyes when spoken to and can sustain eye contact. More wakeful today and able to follow simple direction, ie: squeeze hands, nod head yes or no. Tries to speak but unable to understand (with tracheostomy). Remains very weak and unable to participate with self care. Dr. Miller rounded while out to lunch. No further orders. Is a prisoner and two guards posted in room. Both ankles remained shackled and left wrist as well. No skin breakdown, areas padded.
--- NOTE | 2020-01-14 14:39 | NUR ---
Dr. Stapleton, system trainer also rounded at 1140, continue current plan of care.
[2020-01-14] MEDS: PROPOFOL 100 ML IV SCH (14:40)
[2020-01-14] MEDS ORDERED: ACETAMINOPHEN 650 mg PER 20 mL UD ONE (16:05)
[2020-01-14] MEDS: ACETAMINOPHEN 650 mg PER 20 mL UD GT PRN (16:15)
[2020-01-14] MEDS: Glucerna 1.2 Cal 1Liter BOTTLE GT SCH (16:32)
[2020-01-14] MEDS: NOREPINEPHRINE 8 MG/250ML KIT 250 ML IV SCH (17:45)
--- NOTE | 2020-01-14 18:55 | NUR ---
Medications held today. Scheduled Lantus at 10 am held, blood glucose check 88. Held 1200 and 1800 Lactulose. Had a large BM yesterday and order states hold when he has a BM. Guard came out to get help. Caprice sumner RN went into room. Pulled out NGT and removed pulse oximetry. Assessed for signs of aspiration (tube feeding in progress), no acute respiratory distress. Placed 16 Fr. NGT to right nare without difficulty times one attempt. Reviewed plan of care and explained the need to place a mitten to his right hand. Left wrist is cuffed to the bed rail. Reviewed plan of care with patient and reinforced importance of all medical tubes. Chest tube remains in place with grade 5 leak (doctors aware of leak and has had it since chest tube placed) No crepitus felt around chest tube site. Draining cream color fluid.
[2020-01-14] MEDS: SOD CHL 0.9%/ KCL 20MEQ 1,000 ML IV SCH (19:40)
[2020-01-15] VITALS (100 sets, daily range): BP systolic 103–152; BP diastolic 60–89
[2020-01-15] MEDS: MIDAZOLAM DRIP 50 mg/50mL 50 ML IV SCH ×2 (00:17→09:56)
--- NOTE | 2020-01-15 00:30 | NUR ---
Chest tube site dressing changes Chest tube site dressing change done with a sterile technique. Cleansed with chloraprep scrub.Vaseline gauze dressing applied. covered with sterile gauze and tegaderm
--- NOTE | 2020-01-15 01:00 | NUR ---
DRESSING CHANGE POSTERIOR SACRAL WOUND DRESSING CHANGE DONE. CLEANED WITH NS, PAT DRY WITH STERILE GAUZE. APPLIED THERAHONEY GEL AND COVERED WITH OPTIFOAM GENTLE DRESSING.
--- NOTE | 2020-01-15 02:00 | NUR ---
Patient bathe/linen change Patient given complete bath with chlorhexidine wipes. Skin integrity assessed for any changes. Linens changed. Patient repositioned for comfort.
[2020-01-15] MEDS: SOD CHL 0.9%/ KCL 20MEQ 1,000 ML IV SCH ×2 (04:19→21:43)
[2020-01-15] MEDS: LACTULOSE 20Gm/30ML SOLN PO SCH (06:00)
[2020-01-15] MEDS: InsuLIN REG 1unit/0.01ml Soln (100units/ml) SC SCH ×3 (06:00→17:55)
[2020-01-15] MEDS: METOCLOPRAMIDE HCL 5MG/ml INJ 2ml VIAL IV SCH ×3 (06:08→21:43)
[2020-01-15] MEDS: ACETYLCYSTEINE 10 %(100MG/ML) SOL 4ML NEB SCH ×3 (06:26→18:13)
[2020-01-15] MEDS: ALBUTEROL SULF 2.5 MG/0.5ML(0.5%) NEB SOLN NEB SCH ×3 (06:26→18:14)
[2020-01-15] MEDS: IPRATROPIUM BROM 0.5 MG/2.5ML INH SOL NEB SCH ×3 (06:26→18:14)
[2020-01-15] MEDS: ACCU-CHEK COMFORT CURVE STRIP VI SCH ×3 (06:26→17:54)
--- NOTE | 2020-01-15 08:00 | NUR ---
TUBE FEEDINGS TF TOLERATED WELL. RATE REMAINS AT 55ML/HR AT THIS TIME. ASPIRATION PRECAUTIONS IN PLACE. WILL CONTINUE TO MONITOR.
[2020-01-15] MEDS: fentaNYL Drip 2500mCg/250mlNS 250 ML IV SCH (08:38)
[2020-01-15] MEDS: FLUCONAZOLE 200MG/100ML 100 ML IV SCH ×2 (09:56→11:46)
[2020-01-15] MEDS: AMIODARONE HCL 200 MG TAB PO SCH ×2 (09:57→21:43)
[2020-01-15] MEDS: PANTOPRAZOLE 40 MG/10 ML VIAL INJ IV SCH (09:57)
[2020-01-15] MEDS: DIGOXIN (250MCG/ML) 2 ML AMPULE IV SCH (09:57)
[2020-01-15] MEDS: BACITRACIN TOP OINT 1 UD PKG TOP SCH ×2 (09:57→21:47)
[2020-01-15] MEDS: INSULIN LANTUS (GLARGINE) 1 /0.01ml (100units/ml) SC SCH ×2 (10:00→22:24)
[2020-01-15] MEDS ORDERED: LACTULOSE 20Gm/30ML SOLN PO PRN (10:00)
--- NOTE | 2020-01-15 10:00 | NUR ---
ACTIVITY PATIENT PLACED IN CHAIR POSITION VIA BED. PT TOLERATING WELL. WILL CONTINUE TO MONITOR.
[2020-01-15] MEDS: Glucerna 1.2 Cal 1Liter BOTTLE GT SCH (11:26)
[2020-01-15] MEDS: NOREPINEPHRINE 8 MG/250ML KIT 250 ML IV SCH (13:29)
[2020-01-15] MEDS: PROPOFOL 100 ML IV SCH (13:29)
[2020-01-15] MEDS: MICAFUNGIN SODIUM 100 MG in SODIUM CHL 0.9% 100 ML IV SCH (14:08)
--- NOTE | 2020-01-15 14:30 | NUR ---
COMPLETE BED CHANGE/ CHEST TUBE COMPLETE LINEN CHANGE DONE. SACRUM CLEANSED,AND PADDED DRY, ZGAURD APPLIED WITH OPTIFOAM GENTLE. HEELS OFFLOADED WITH PILLOWS. BILATERAL LOWER ANKLES AND LEFT WRIST REMAINS INTACT, OPTIFOAM PLACED TO BONY AREAS TO PREVENT SKIN BREAKDOWN FROM CUFFS. GUARDS AT BEDSIDE. RIGHT MIDCLAVICULAR PLEURAL CATHETER CONTINUES ON LCS, WITH OASIS WATER SEAL CHAMBER, CONTINUES TO HAVE AIR LEAK WITH NO SUBCUTANEOUS EMPHYSEMA NOTED THROUGHOUT CHEST/NECK. POX WNL. PATIENT TOLERATED ACTIVITY WELL.
--- NOTE | 2020-01-15 16:00 | NUR ---
COMMUNICATION PATIENT ATTEMPTING TO VERBALIZE NEEDS. UNABLE TO UNDERSTAND PATIENT HAS TRACHEOSTOMY IN PLACE. BOARD PROVIDED BUT UNABLE TO USE PROPERLY DUE TO POOR COORDINATION. PT DENIES PAIN, POSITION CHANGE. WILL CONTINUE TO ATTEMPT.
--- NOTE | 2020-01-15 18:00 | NUR ---
Cooling Measures applied. Patient currently has temp of 100.6 , cooling measures in place.
--- NOTE | 2020-01-15 18:00 | NUR ---
TUBE FEEDINGS TOLERATED WELL NO GASTRIC RESIDUAL NOTED. ASPIRATION PRECAUTIONS IN PLACE. TF REMAIN AT 60ML/HR.
--- NOTE | 2020-01-15 18:21 | NUR ---
AT BEDSIDE DR. MAYO UPDATED ON PATIENTS STATUS. PER MD, PATIENT FAMILY TO VISIT ON 01/16 AT 1000. GUARDS AWARE. CHARGE AND CELLULAR PLASTICS CUTTER AWARE. Addendum: 01/15/20 at 1829 by Vibha Fuller RN AWARE OF OPAL GALLOWAY Addendum: 01/15/20 at 1830 by Vibha Fuller RN AWARE OF CURRENT TEMP.
--- NOTE | 2020-01-15 19:06 | NUR ---
UA SAMPLE COLLECTED AND SENT TO LAB.
[2020-01-16] VITALS (104 sets, daily range): BP systolic 98–147; BP diastolic 58–87
[2020-01-16] MEDS: ACCU-CHEK COMFORT CURVE STRIP VI SCH ×4 (00:20→17:21)
[2020-01-16] MEDS: InsuLIN REG 1unit/0.01ml Soln (100units/ml) SC SCH ×4 (00:23→17:23)
--- NOTE | 2020-01-16 01:00 | NUR ---
DR. Margo HUMPHREYS AT BEDSIDE.
--- NOTE | 2020-01-16 02:00 | NUR ---
Patient bathe/linen change Patient given complete bath. Skin integrity assessed for any changes. Linens changed. Patient repositioned for comfort.
[2020-01-16] MEDS: METOCLOPRAMIDE HCL 5MG/ml INJ 2ml VIAL IV SCH ×5 (06:12→22:00)
[2020-01-16] MEDS: ACETYLCYSTEINE 10 %(100MG/ML) SOL 4ML NEB SCH ×3 (06:16→18:12)
[2020-01-16] MEDS: ALBUTEROL SULF 2.5 MG/0.5ML(0.5%) NEB SOLN NEB SCH ×3 (06:16→18:12)
[2020-01-16] MEDS: IPRATROPIUM BROM 0.5 MG/2.5ML INH SOL NEB SCH ×3 (06:16→18:11)
--- NOTE | 2020-01-16 07:34 | NUR ---
DR. Amparo HUMPHREYS HERE TO SEE PATIENT. SEE MD NOTES AND EMR FOR ANY NEW ORDERS.
--- NOTE | 2020-01-16 08:54 | NUR ---
DR. Amparo CASTELLON HERE TO SEE PATIENT. SEE MD NOTES AND EMR FOR ANY NEW ORDERS. DR. CASTELLON STATES PATIENTS FAMILY WILL BE COMING TO VISIT TOMORROW 01/17/20 AT 1000 AM.
[2020-01-16] MEDS: ONDANSETRON HCL 4 MG/2 ML VIAL IV PRN ×3 (09:00→21:56)
[2020-01-16] MEDS: FLUCONAZOLE 200MG/100ML 100 ML IV SCH ×2 (09:00→10:09)
[2020-01-16] MEDS: INSULIN LANTUS (GLARGINE) 1 /0.01ml (100units/ml) SC SCH ×2 (10:00→21:47)
[2020-01-16] MEDS: ACETAMINOPHEN 650 mg PER 20 mL UD GT PRN (10:09)
[2020-01-16] MEDS: PANTOPRAZOLE 40 MG/10 ML VIAL INJ IV SCH (10:09)
[2020-01-16] MEDS: BACITRACIN TOP OINT 1 UD PKG TOP SCH ×2 (10:10→22:31)
[2020-01-16] MEDS: AMIODARONE HCL 200 MG TAB PO SCH ×2 (10:10→22:30)
--- NOTE | 2020-01-16 11:40 | NUR ---
Nutrition Follow-up Notes Wt.: 81.2 kg Pt`s intubated sedated with no family by bedside. per RN pt was on TF with Glucerna @ 65 ml/hr was tolerating well except this am had episode of emesis and off feeds. per RN will restrt later. pt getting 1872 kcals and 93 gm proteins with TF. pt off PN support Est. Needs BW 81 [id number] kcals (20-25 kcal/kgBW). 101-126 gms/day (1.2-1.5 gm/kgBW low prealb). Will continue to monitor pertinent labs and reassess nutrient need prn. - Labs: CA 7.7 L, ALB 1.5 L. Skin: Irwin scale 12 high risk, pt with pressure ulcers per television inspector. refer to notes for details GI: Pt had 1 BM on 01/12 per television inspector. PES: Altered nutrition related lab values r/t current medical condition aeb hyponatremia, elevated RFTs, hyperglycemia, hypocalcemia, elevated bilirubin severe hypoalbuminemia Will continue to monitor NPO status, EN tolerance, skin status, pertinent labs and weight trend. F/u in 2-3 days. Rec.: 1.) Resume TF as medically feasible. 2) advance diet as medically feasible. 3) Continue current plan of care.
[2020-01-16] MEDS: MICAFUNGIN SODIUM 100 MG in SODIUM CHL 0.9% 100 ML IV SCH (12:08)
[2020-01-16] MEDS: PROPOFOL 100 ML IV SCH (14:40)
[2020-01-16] MEDS: SOD CHL 0.9%/ KCL 20MEQ 1,000 ML IV SCH (15:12)
[2020-01-16] MEDS: NOREPINEPHRINE 8 MG/250ML KIT 250 ML IV SCH (15:12)
[2020-01-16] MEDS: MIDAZOLAM DRIP 50 mg/50mL 50 ML IV SCH (17:43)
--- NOTE | 2020-01-16 19:45 | NUR ---
OPENING NOTE RECEIVED REPORT FROM DAY SHIFT RN AND ASSUMED CARE OF PT. PT CURRENTLY TRACHED WITH MECHANICAL VENTILATOR IN PLACE. PT IS FLAT, CALM AND IN HIGH FOWLERS POSITION FOR ASPIRATION PRECAUTIONS. PUPILS 3 MM IN SIZE AND BRISK. NO PAIN WHEN ASSESSED. RECTAL THERMOMETER IN PLACE READING 99.7. HR IS 80'S-90'S SR WITH NO ECTOPY NOTED. BP STABLE RUNNING IN LOW 110'S-120'S SYSTOLIC. PULSES PALPABLE. NO S/S OF RESPIRATORY DISTRESS NOTED. RIGHT NARE NG TUBE IN PLACE. PT HAVING SEVERE NAUSEA AND EPISODES OF VOMITING THROUGHOUT THE DAY AND AT THIS TIME. MAY CATHETER IN PLACE AND DRAINING TO GRAVITY APPROPRIATELY. SCDS APPLIED TO BLE. PT ON SPECIALTY MATTRESS. WILL CONTINUE TO MONITOR AND ASSESS PT.
--- NOTE | 2020-01-16 21:16 | NUR ---
MD CASTELLON PAGED PT EXPERIENCING SEVERE NAUSEA AND DRY HEAVING. NO APPROPRIATE MEDICATIONS TO TREAT N/V ORDERED ON e-NOV AT THIS TIME. AWAITING CALL BACK.
--- NOTE | 2020-01-16 21:22 | NUR ---
PT HAD EPISODE OF VOMITING. BRIGHT GREEN BILE. NO S/S OF ASPIRATION NOTED. PAGED FOR ZOFRAN ORDERS. STILL AWAITING CALLBACK.
--- NOTE | 2020-01-16 21:23 | NUR ---
BM PT HAD MODERATE FORMED/SOFT BROWN BM. GABY CARE PROVIDED. Z GUARD APPLIED TO SACRAL AREA AND OPTIFOAM CHANGED.
[2020-01-16] MEDS ORDERED: ONDANSETRON HCL 4 MG/2 ML VIAL ONE (21:54)
--- NOTE | 2020-01-16 22:01 | NUR ---
NG TUBE CONNECTED NG TUBE TO LIS. POSITIVE PLACEMENT HEARD VIA AUSCULTATION. GASTRIC CONTENTS NOTED RESIDUAL. BRIGHT GREEN BILE COMING FROM TUBE TO CANISTER. WILL MONITOR.
--- NOTE | 2020-01-16 22:29 | NUR ---
COOLING MEASURES COOLING MEASURES INITIATED FOR RECTAL TEMP OF 100.0. ICE PACKS APPLIED TO AXILLARY REGION AND COOL TOWEL APPLIED TO FOREHEAD. WILL REASSESS.
--- NOTE | 2020-01-16 22:30 | NUR ---
TRACH WOUND CARE PREFORMED WOUND CARE FOR MUCOSAL ULCER UNDER TRACH SITE PER ORDERS AND WOUND CARE RECOMMENDATION. OPTIFOAM IS TIMED, DATED, AND INITIALED.
--- NOTE | 2020-01-16 22:34 | NUR ---
AMIO HELD AT THIS TIME. PT HAD N/V AND NG TUBE CONNECTED TO SUCTION TO DECOMPRESS STOMACH. UNABLE TO ADMINISTER VIA NG TUBE AND PT DOES NOT WANT TO VOMIT.
[2020-01-17] VITALS (86 sets, daily range): BP systolic 96–147; BP diastolic 47–84
[2020-01-17] MEDS: ACCU-CHEK COMFORT CURVE STRIP VI SCH ×4 (00:06→18:39)
[2020-01-17] MEDS: LORazepam 2MG/ML-1ML VIAL IV PRN ×3 (00:22→19:46)
[2020-01-17] MEDS: ONDANSETRON HCL 4 MG/2 ML VIAL IV PRN ×2 (03:33→12:38)
--- NOTE | 2020-01-17 03:45 | NUR ---
PT CARE GAVE PT CHG BATH AND FULL KIANA CHANGE. ASSESSED SKIN WITH NO NEW CHANGES OTHER THAN WHAT HAS BEEN DOCUMENTED AT THIS TIME. OPTIFOAM TO SACRUM STILL IN PLACE. GABY CARE/CATHETER CARE PREFORMED. ORAL CARE DONE AND PT TURNED. LOTION APPLIED TO DRY FEET.
[2020-01-17 03:55] LABS: Basophils # (auto) 0 10 ^3/uL (0-0.2); Eosinophils # (auto) 0.1 10 ^3/uL (0-0.8); Eosinophils % (auto) 1.3 % (0.0-7.0); Hemoglobin 8.9 g/dL (13.5-17.5); Lymphocytes # (auto) 1.4 10 ^3/uL (0.4-5.4); Lymphocytes % (auto) 15.6 % (10.0-50.0); Monocytes # (auto) 0.3 10 ^3/uL (0-1.3); Monocytes % (auto) 2.8 % (0.0-12.0); Neutrophils # (auto) 7.3 10 ^3/uL (1.6-8.6); White Blood Cell 9.1 10^3/uL (4.4-10.8)
[2020-01-17 03:57] LABS: Basophils % (auto) 0.3 % (0.0-2.0); Hematocrit 27.4 % (41.0-53.0); Mean Corpuscular Hemoglobin 28.2 pg (28.0-32.0); Mean Corpuscular Hgb Conc. 32.4 g/dL (32.0-36.0); Mean Corpuscular Volume 86.9 fL (80.0-100.0); Platelet Count (auto) 614 10^3/uL (140-450); Red Blood Cells 3.15 10^6/uL (4.5-5.90)
[2020-01-17 04:12] LABS: Albumin 1.6 g/dL (3.4-5.0); Calcium 8.1 mg/dL (8.5-10.1); Potassium 3.7 mmol/L (3.5-5.1)
[2020-01-17 04:15] LABS: BUN/Creatinine Ratio 12.5; Bilirubin, Total 0.6 mg/dL (0.2-1.0)
--- NOTE | 2020-01-17 05:18 | NUR ---
CENTRAL LINE DRESSING CHANGE REMOVED PREVIOUS DRESSING USING CLEAN TECHNIQUE. APPLIED NEW CENTRAL LINE DRESSING USING STERILE TECHNIQUE. BIOPATCH IN PLACE. NO S/S OF INFECTION NOTED AROUND SITE. DRESSING IS TIMED, DATED, AND INITIALED. PT TOLERATED WELL WITH NO COMPLAINTS OF PAIN.
[2020-01-17] MEDS: METOCLOPRAMIDE HCL 5MG/ml INJ 2ml VIAL IV SCH ×4 (06:00→22:13)
[2020-01-17] MEDS: InsuLIN REG 1unit/0.01ml Soln (100units/ml) SC SCH ×4 (06:00→18:42)
[2020-01-17] MEDS: IPRATROPIUM BROM 0.5 MG/2.5ML INH SOL NEB SCH ×3 (06:27→18:15)
[2020-01-17] MEDS: ACETYLCYSTEINE 10 %(100MG/ML) SOL 4ML NEB SCH ×3 (06:28→18:15)
[2020-01-17] MEDS: ALBUTEROL SULF 2.5 MG/0.5ML(0.5%) NEB SOLN NEB SCH ×3 (06:28→18:15)
[2020-01-17] MEDS: SOD CHL 0.9%/ KCL 20MEQ 1,000 ML IV SCH (06:33)
--- NOTE | 2020-01-17 09:30 | NUR ---
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 PATIENT TOLERATED WELL.
[2020-01-17] MEDS: AMIODARONE HCL 200 MG TAB PO SCH ×2 (10:00→22:14)
[2020-01-17] MEDS: INSULIN LANTUS (GLARGINE) 1 /0.01ml (100units/ml) SC SCH ×2 (10:00→22:12)
--- NOTE | 2020-01-17 10:10 | NUR ---
FAMILY AT BEDSIDE WITH MULTIPLE CORRECTIONS REPRESENTATIVES, PATIENT ALERT AND ORIENTED, NO DISTRESS NOTED, RESPIRATIONS EVEN AND UNLABORED, MECHANICALLY VENTILATED. FAMILY WILL REMAIN 10 MINUTES - TWO MORE FAMILY MEMBERS PENDING TO SEE PATIENT.
[2020-01-17] MEDS: FLUCONAZOLE 200MG/100ML 100 ML IV SCH ×2 (12:28→14:17)
[2020-01-17] MEDS: DIGOXIN (250MCG/ML) 2 ML AMPULE IV SCH (12:28)
[2020-01-17] MEDS: BACITRACIN TOP OINT 1 UD PKG TOP SCH ×2 (12:30→22:13)
--- NOTE | 2020-01-17 12:40 | NUR ---
HOSPITALIST AT BEDSIDE/FAMILY MEETING DR CASTELLON UPDATED ON PATIENT'S STATUS AND FAMILY WAITING TO SPEAK WITH HIM PRE-SCHEDULED WITH FACILITY. DR CASTELLON DISCUSSED CODE STATUS WITH PATIENT THIS NURSE INTERPRETED IN [facility], PATIENT NOTED HE WANTED EVERYTHING DONE (FULL CODE). DR CASTELLON ALSO AWARE OF PATIENT'S CONTINUED REPORTING OF FEELING NAUSEOUS, NO BM, VOMITING DURING NIGHT AND DAY SHIFT YESTERDAY WITH FEEDING STOPPED AND PATIENT REPORTING ABDOMINAL PAIN. ORDERS RECEIVED AND WILL BE CARRIED OUT. DR CASTELLON SPOKE WITH FAMILY IN ICU CONFERENCE ROOM, ALL VERBALIZED UNDERSTANDING. Addendum: 01/17/20 at 1845 by Ana Love RN DR CASTELLON AWARE OF ORAL AMIODARONE HELD THIS MORNING DUE TO NAUSEA.
[2020-01-17] MEDS: LACTULOSE 20Gm/30ML SOLN PO PRN ×2 (14:18→15:22)
[2020-01-17] MEDS: KETOROLAC TROMETH 30 MG/ML 1ML VIAL IV PRN ×2 (14:19→22:12)
[2020-01-17] MEDS: PROPOFOL 100 ML IV SCH (14:27)
--- NOTE | 2020-01-17 14:30 | NUR ---
ENTERAL FEEDING RESTARTED PER DR CASTELLON AT A RATE OF 20 MLS/HR WITH A GOAL RATE OF 60 MLS/HR. LACTULOSE ADMINISTERED WELL PRIOR TO STARTING FEEDING. WILL ASSESS RESIDUAL DURING SHIFT.
[2020-01-17] MEDS: MICAFUNGIN SODIUM 100 MG in SODIUM CHL 0.9% 100 ML IV SCH (15:16)
--- NOTE | 2020-01-17 15:25 | NUR ---
ENTERAL NUTRITION PATIENT HAD ZERO RESIDUALS WHEN CHECKED ONE HOUR AFTER STARTING FEEDINGS AT 20ML/HR. INCREASED FEEDINGS TO 30ML/HR AND WILL CONTINUE TO MONITOR RESIDUALS AND TOLERANCE TO FEEDINGS. PATIENT CURRENTLY RESTING WITH HIS EYES CLOSED, NO DISCOMFORT NOTED AND NO FURTHER COMPLAINTS OF NAUSEA.
--- NOTE | 2020-01-17 16:50 | NUR ---
BM/COMFORT/ENTERAL FEEDING PATIENT CLEANSED OF LARGE LIQUID/SOFT BROWN BOWEL MOVEMENT AFTER TWO DOSES OF LACTULOSE ADMINISTERED ORDERED BY MD. PATIENT ABLE TO USE BEDPAN AND ASSIST WITH TURNING. NO PAIN OR NAUSEA REPORTED BY PATIENT, ZERO RESIDUAL TO ENTERAL FEEDING - PATIENT TOLERATING WELL, INCREASED ENTERAL FEEDING 40 MLS/HR WITH GOAL RATE OF 60 MLS/HR.
[2020-01-17] MEDS: NOREPINEPHRINE 8 MG/250ML KIT 250 ML IV SCH (17:45)
[2020-01-17] MEDS ORDERED: cefTRIAXone 1GM/50ML D5W 50 ML IV ONE (20:00)
[2020-01-18] VITALS (17 sets, daily range): BP systolic 112–132; BP diastolic 56–75
[2020-01-18] MEDS: InsuLIN REG 1unit/0.01ml Soln (100units/ml) SC SCH ×5 (00:30→23:30)
[2020-01-18] MEDS: SOD CHL 0.9%/ KCL 20MEQ 1,000 ML IV SCH (02:36)
[2020-01-18 04:10] LABS: Basophils # (auto) 0 10 ^3/uL (0-0.2); Basophils % (auto) 0.3 % (0.0-2.0); Eosinophils # (auto) 0.3 10 ^3/uL (0-0.8); Eosinophils % (auto) 3.1 % (0.0-7.0); Hematocrit 28.5 % (41.0-53.0); Lymphocytes # (auto) 1.6 10 ^3/uL (0.4-5.4); Lymphocytes % (auto) 17.9 % (10.0-50.0); Mean Corpuscular Hemoglobin 27.5 pg (28.0-32.0); Mean Corpuscular Hgb Conc. 31.6 g/dL (32.0-36.0); Mean Corpuscular Volume 86.9 fL (80.0-100.0); Monocytes # (auto) 0.5 10 ^3/uL (0-1.3); Monocytes % (auto) 5.8 % (0.0-12.0); Neutrophils # (auto) 6.4 10 ^3/uL (1.6-8.6); Neutrophils % (auto) 72.9 % (37.0-80.0); Platelet Count (auto) 576 10^3/uL (140-450); Red Blood Cells 3.27 10^6/uL (4.5-5.90); White Blood Cell 8.8 10^3/uL (4.4-10.8)
[2020-01-18 04:24] LABS: Albumin 1.6 g/dL (3.4-5.0); Calcium 7.9 mg/dL (8.5-10.1); Potassium 3.5 mmol/L (3.5-5.1)
[2020-01-18 04:28] LABS: BUN/Creatinine Ratio 18.6; Bilirubin, Total 0.5 mg/dL (0.2-1.0); Total Protein 6.8 g/dL (6.4-8.2)
--- NOTE | 2020-01-18 05:25 | NUR ---
AT 1930 PT IS CALM AND ONSR WITHOUT ECTOPY. iV SITE IS GOOD
--- NOTE | 2020-01-18 05:26 | NUR ---
AT 2200 PT WANTS TO TAKE WATER BUT EXPLAINED TO HIM HE IS NPO
--- NOTE | 2020-01-18 05:28 | NUR ---
AT 0000T0 0400 PT WAS ASLEEP. nO C/O PAIN THS TIME
[2020-01-18] MEDS: METOCLOPRAMIDE HCL 5MG/ml INJ 2ml VIAL IV SCH ×3 (05:39→21:20)
[2020-01-18] MEDS: ACCU-CHEK COMFORT CURVE STRIP VI SCH ×4 (06:06→17:24)
[2020-01-18] MEDS: IPRATROPIUM BROM 0.5 MG/2.5ML INH SOL NEB SCH ×3 (07:48→18:06)
[2020-01-18] MEDS: ACETYLCYSTEINE 10 %(100MG/ML) SOL 4ML NEB SCH ×3 (07:48→18:06)
[2020-01-18] MEDS: ALBUTEROL SULF 2.5 MG/0.5ML(0.5%) NEB SOLN NEB SCH ×3 (07:48→18:06)
--- NOTE | 2020-01-18 08:00 | NUR ---
Opening Shift Note Assumed care of patient, awake and alert, communication by reading Lip and writing on the paper. No S/S of distress/SOB or chest pain noted, complaining of pain 10/10, will give him pain medication, patient made aware. On ICD with continue suction, still has air leaking, no subcutaneous noted. Instructed on POC and to call for assist PRN, will continue to monitor for changes Q1hr and PRN.
--- NOTE | 2020-01-18 09:00 | NUR ---
Mouth care provided, due to complaining of dry mouth and want to drink some water, explained that NPO, nothing by mouth. reposition as well.
[2020-01-18] MEDS: cefTRIAXone 1GM/50ML D5W 50 ML IV SCH (09:04)
[2020-01-18] MEDS: AMIODARONE HCL 200 MG TAB PO SCH ×2 (09:13→21:20)
[2020-01-18] MEDS: FLUCONAZOLE 200MG/100ML 100 ML IV SCH ×2 (09:13→11:28)
[2020-01-18] MEDS: KETOROLAC TROMETH 30 MG/ML 1ML VIAL IV PRN ×2 (09:14→21:09)
--- NOTE | 2020-01-18 10:00 | NUR ---
Start tube feeding at this time at 50 ml/hr, no content left. Patient sitting up with Elevated HOB, watching TV.
[2020-01-18] MEDS: BACITRACIN TOP OINT 1 UD PKG TOP SCH ×2 (11:28→22:00)
[2020-01-18] MEDS: INSULIN LANTUS (GLARGINE) 1 /0.01ml (100units/ml) SC SCH ×2 (11:29→21:22)
--- NOTE | 2020-01-18 12:03 | NUR ---
Checked NG tube, no content left, increased tube feeding to 60 ml/hr. Patient asking to have water, feed water in the NG tube for 50 ml.
[2020-01-18] MEDS: MICAFUNGIN SODIUM 100 MG in SODIUM CHL 0.9% 100 ML IV SCH (12:23)
--- NOTE | 2020-01-18 12:58 | NUR ---
Nutrition Follow-up Notes Wt.: 85.3 kg Pt`s sleeping with no family by bedside. per RN pt to restart TF with Glucerna @ 50 ml/hr later today. Est. Needs BW 81 [id number] kcals (20-25 kcal/kgBW). 101-126 gms/day (1.2-1.5 gm/kgBW low prealb). Will continue to monitor pertinent labs and reassess nutrient need prn. - Labs: GLU 125 H, CA 7.9 L, ALB 1.6 L. Skin: Irwin scale 11 high risk, pt with pressure ulcers per warp yarn sorter. refer to WC notes for details GI: Pt had 1 BM yesterday per warp yarn sorter. PES: Altered nutrition related lab values r/t current medical condition aeb hyponatremia, elevated RFTs, hyperglycemia, hypocalcemia, elevated bilirubin severe hypoalbuminemia Will continue to monitor NPO status, EN tolerance, skin status, pertinent labs and weight trend. F/u in 2-3 days. Rec.: 1.) Resume TF as medically feasible to goal rate of 60 gm/hr per MD approval. 2) advance diet as medically feasible. 3) Continue current plan of care.
[2020-01-18] MEDS: PROPOFOL 100 ML IV SCH (14:00)
[2020-01-18] MEDS: NOREPINEPHRINE 8 MG/250ML KIT 250 ML IV SCH (14:00)
--- NOTE | 2020-01-18 15:03 | NUR ---
Dr. Miller at the bedside, seen and examined patient at this time, plan of care discussed with patient, received order for D/C meng's catheter, if patient has urine retention, okay for meng's catheter insertion.
--- NOTE | 2020-01-18 15:04 | NUR ---
Meng catheter dc'd Order to discontinue meng catheter. Meng dc'd with clean technique following deflation of balloon. Patient tolerated well with no complaints of pain. Continue care.
--- NOTE | 2020-01-18 16:10 | NUR ---
Dr. Ayala at the bedside seen and examined patient at his time, paged RT at the bedside as well.
--- NOTE | 2020-01-18 17:50 | NUR ---
Mouth care provided, reposition, checking NG tube, no content left, ice chip provided. No complaining of N/V noted. No bladder distention noted, no feeling want to pass urine yet. Continue ventilator, RT at the bedside. Informed plan of care that Dr. Ayala plan to do CPAP. RR 14-18 /min O2 saturation 100%. No fever noted, vital sign stable.
[2020-01-18] MEDS: LORazepam 2MG/ML-1ML VIAL IV PRN (21:14)
[2020-01-19] VITALS (9 sets, daily range): BP systolic 118–126; BP diastolic 67–74
[2020-01-19] MEDS: LORazepam 2MG/ML-1ML VIAL IV PRN ×2 (03:06→20:48)
[2020-01-19] MEDS: ACCU-CHEK COMFORT CURVE STRIP VI SCH ×4 (05:42→17:32)
[2020-01-19] MEDS: InsuLIN REG 1unit/0.01ml Soln (100units/ml) SC SCH ×3 (05:43→17:32)
[2020-01-19] MEDS: METOCLOPRAMIDE HCL 5MG/ml INJ 2ml VIAL IV SCH ×3 (05:44→20:48)
[2020-01-19] MEDS: ALBUTEROL SULF 2.5 MG/0.5ML(0.5%) NEB SOLN NEB SCH ×3 (06:34→19:15)
[2020-01-19] MEDS: IPRATROPIUM BROM 0.5 MG/2.5ML INH SOL NEB SCH ×3 (06:34→19:15)
[2020-01-19] MEDS: ACETYLCYSTEINE 10 %(100MG/ML) SOL 4ML NEB SCH ×3 (06:34→19:15)
--- NOTE | 2020-01-19 07:30 | NUR ---
Opening Shift Note Assumed care of patient, awake and alert, on ventilator. No S/S of distress/SOB or pain noted. Instructed on POC and to call for assist PRN, will continue to monitor for changes Q1hr and PRN. Found NG tube on the floor, patient mentioned that it came out but didn't know how long ago. Got a report that been holding tube feeding since around 3 or 4 am. Assessment done, NG tube insertion at this time, got bile content 50 ml out and air around 400 ml. Skip at 63 cm at right Nares. Resume tube feeding at this time.
--- NOTE | 2020-01-19 08:20 | NUR ---
RT at the bedside, repositioning, sitting up with high carmona position, changed to CPAP at this time.
[2020-01-19] MEDS: DIGOXIN (250MCG/ML) 2 ML AMPULE IV SCH (09:09)
[2020-01-19] MEDS: BACITRACIN TOP OINT 1 UD PKG TOP SCH ×2 (09:12→22:00)
[2020-01-19] MEDS: AMIODARONE HCL 200 MG TAB PO SCH (09:12)
[2020-01-19] MEDS: FLUCONAZOLE 200MG/100ML 100 ML IV SCH ×2 (09:13→10:52)
[2020-01-19] MEDS: cefTRIAXone 1GM/50ML D5W 50 ML IV SCH (09:13)
[2020-01-19] MEDS: SOD CHL 0.9%/ KCL 20MEQ 1,000 ML IV SCH ×2 (09:13→17:32)
--- NOTE | 2020-01-19 09:42 | NUR ---
Repositioning. Perineal care provided because patient passed urine without using urinal, partial linen changed, patient incontinence. Mouth care provided. Checked NG tube content, got milk around 10 ml, returned, patient sitting up with carmona position, will continue to monitor and care.
[2020-01-19] MEDS: INSULIN LANTUS (GLARGINE) 1 /0.01ml (100units/ml) SC SCH ×2 (10:03→22:00)
[2020-01-19] MEDS: PROPOFOL 100 ML IV SCH (11:19)
[2020-01-19] MEDS: NOREPINEPHRINE 8 MG/250ML KIT 250 ML IV SCH (11:20)
--- NOTE | 2020-01-19 11:40 | NUR ---
Checked NG tube, no content left, patient tolerated feeding well, no N/V noted. Fed free water for 50 ml. Ice chip provided.
--- NOTE | 2020-01-19 11:50 | NUR ---
PLACED PT ON TRACH COLLAR AND DELIA. WELL. PT ON 8L CA AT 30% FIO2, SPO2 100%, HR, 74, RR 28. SX LARGE AMOUNTS OF THICK WHITE SECRETIONS. WILL CONTINUE TO MONITOR PT.
--- NOTE | 2020-01-19 12:26 | NUR ---
Dr. Ayala at the bedside, seen and examined patient at this time, patient on Trach collar trial at this time, stated that if patient tolerated with trach collar well, on Wednesday possible able to remove ICD.
[2020-01-19] MEDS: MICAFUNGIN SODIUM 100 MG in SODIUM CHL 0.9% 100 ML IV SCH (13:28)
--- NOTE | 2020-01-19 13:50 | NUR ---
Dr. Miller at the bedside, seen and examined patient at this time, will continue to monitor in [facility] if stable possible transfer/downgrade tomorrow.
[2020-01-19] MEDS: KETOROLAC TROMETH 30 MG/ML 1ML VIAL IV PRN ×2 (13:54→20:53)
--- NOTE | 2020-01-19 16:00 | NUR ---
Patient tried to use bedpan, no BM at this time, only urinating, perineal care provided, Cleaned the wound and changed the Optifoam, repositioning as well.
--- NOTE | 2020-01-19 17:50 | NUR ---
Checked NG tube got bile 60 ml mixed with Glucerna, didn't return back. Will continue to monitor and care.
--- NOTE | 2020-01-19 18:38 | NUR ---
Patient had BM, able to tell when he needs the bedpan, perineal care provided, partial linen changed. Reposition as well.
[2020-01-20] VITALS: BP 118/69
[2020-01-20] MEDS: SOD CHL 0.9%/ KCL 20MEQ 1,000 ML IV SCH (00:16)
[2020-01-20] MEDS: ACCU-CHEK COMFORT CURVE STRIP VI SCH ×4 (00:17→18:30)
[2020-01-20] MEDS: AMIODARONE HCL 200 MG TAB PO SCH ×3 (00:28→21:24)
[2020-01-20] MEDS: LORazepam 2MG/ML-1ML VIAL IV PRN ×3 (03:29→21:23)
[2020-01-20] MEDS: KETOROLAC TROMETH 30 MG/ML 1ML VIAL IV PRN ×2 (03:30→11:11)
[2020-01-20 04:00] VITALS: BP 124/73
[2020-01-20] MEDS: InsuLIN REG 1unit/0.01ml Soln (100units/ml) SC SCH ×4 (06:00→18:00)
[2020-01-20] MEDS: IPRATROPIUM BROM 0.5 MG/2.5ML INH SOL NEB SCH ×3 (06:21→20:01)
[2020-01-20] MEDS: ALBUTEROL SULF 2.5 MG/0.5ML(0.5%) NEB SOLN NEB SCH ×3 (06:22→20:01)
[2020-01-20] MEDS: ACETYLCYSTEINE 10 %(100MG/ML) SOL 4ML NEB SCH ×3 (06:23→20:01)
[2020-01-20] MEDS: METOCLOPRAMIDE HCL 5MG/ml INJ 2ml VIAL IV SCH ×3 (06:54→21:23)
[2020-01-20 07:29] LABS: Eosinophils # (auto) 0.9 10 ^3/uL (0-0.8); Lymphocytes # (auto) 1.4 10 ^3/uL (0.4-5.4); Monocytes # (auto) 0.4 10 ^3/uL (0-1.3); Monocytes % (auto) 4.4 % (0.0-12.0)
[2020-01-20 07:32] LABS: Basophils # (auto) 0.1 10 ^3/uL (0-0.2); Basophils % (auto) 0.6 % (0.0-2.0); Eosinophils % (auto) 9.8 % (0.0-7.0); Hematocrit 29.1 % (41.0-53.0); Hemoglobin 9.2 g/dL (13.5-17.5); Lymphocytes % (auto) 15.5 % (10.0-50.0); Mean Corpuscular Hemoglobin 27.5 pg (28.0-32.0); Mean Corpuscular Hgb Conc. 31.8 g/dL (32.0-36.0); Mean Corpuscular Volume 86.4 fL (80.0-100.0); Neutrophils # (auto) 6.1 10 ^3/uL (1.6-8.6); Neutrophils % (auto) 69.7 % (37.0-80.0); Nucleated Red Blood Cells % 0.1 %; Platelet Count (auto) 518 10^3/uL (140-450); Red Blood Cells 3.37 10^6/uL (4.5-5.90); Red Cell Distribution Width 19.7 % (11.8-14.3); White Blood Cell 8.8 10^3/uL (4.4-10.8)
[2020-01-20 07:42] LABS: Calcium 7.4 mg/dL (8.5-10.1); Potassium 3.9 mmol/L (3.5-5.1)
[2020-01-20 07:46] LABS: BUN/Creatinine Ratio 20.7
--- NOTE | 2020-01-20 08:28 | NUR ---
Pt stable this shift. No S/S of distress but requested anxiety medication even while so he fell asleep and was hard to wake for medication administration. Pt was stating he was hungry, requested gatorade and food. Informed pt on POC to have PT and Swallow evaluation for 01/20/20. Report given to AM shift, care endorsed.
[2020-01-20] MEDS: cefTRIAXone 1GM/50ML D5W 50 ML IV SCH (09:19)
[2020-01-20] MEDS: BACITRACIN TOP OINT 1 UD PKG TOP SCH ×2 (10:00→22:00)
--- NOTE | 2020-01-20 10:30 | NUR ---
Patient incontinent large amount urine and loose stool - gown and bed linen change completed with pericare given.
--- NOTE | 2020-01-20 10:50 | NUR ---
Dr Miller visits and examines patient - orders received.
[2020-01-20] MEDS: FLUCONAZOLE 200MG/100ML 100 ML IV SCH ×2 (11:14→15:29)
--- NOTE | 2020-01-20 12:08 | NUR ---
Dr Stapleton visits and examines patient -no new orders received.
[2020-01-20] MEDS: MICAFUNGIN SODIUM 100 MG in SODIUM CHL 0.9% 100 ML IV SCH (14:00)
--- NOTE | 2020-01-20 14:37 | NUR ---
Attempted PT eval, pt is very lethargic and only keeps eyes open for 1 second. Consulted with RN who states pt received ativan. Will attempt again tomorrow.
[2020-01-20] MEDS: PROPOFOL 100 ML IV SCH (14:40)
--- NOTE | 2020-01-20 16:47 | NUR ---
SWALLOW EVALUATED. RESPIRATORY THERAPIST PRESENT. PATIENT HAS NATURAL TEETH UPPER AND LOWER. PATIENT ABLE TO TOLERATE PUREE DIET TEXTURE WITH HONEY THICKENED LIQUIDS WITH NO OVERT SIGNS OR SYMPTOMS OF ASPIRATION. PATIENT COUGHED ON TRIAL OF THIN AND NECTAR THICKENED LIQUIDS. NURSING NOTIFIED.
[2020-01-20] MEDS: NOREPINEPHRINE 8 MG/250ML KIT 250 ML IV SCH (17:45)
[2020-01-20] MEDS: INSULIN LANTUS (GLARGINE) 1 /0.01ml (100units/ml) SC SCH (19:25)
[2020-01-20 20:00] VITALS: BP 131/78
[2020-01-20 22:49] VITALS: BP 131/78
[2020-01-21] VITALS: BP 116/74
[2020-01-21] MEDS: SOD CHL 0.9%/ KCL 20MEQ 1,000 ML IV SCH (00:43)
[2020-01-21] MEDS: KETOROLAC TROMETH 30 MG/ML 1ML VIAL IV PRN ×2 (00:43→21:41)
[2020-01-21] MEDS: LORazepam 2MG/ML-1ML VIAL IV PRN ×2 (00:43→15:41)
[2020-01-21] MEDS: ONDANSETRON HCL 4 MG/2 ML VIAL IV PRN (00:43)
[2020-01-21 04:00] VITALS: BP 126/80
[2020-01-21] MEDS: ACCU-CHEK COMFORT CURVE STRIP VI SCH ×4 (05:46→17:35)
[2020-01-21] MEDS: InsuLIN REG 1unit/0.01ml Soln (100units/ml) SC SCH ×4 (05:47→17:36)
[2020-01-21] MEDS: INSULIN LANTUS (GLARGINE) 1 /0.01ml (100units/ml) SC SCH ×2 (05:48→17:36)
[2020-01-21] MEDS: METOCLOPRAMIDE HCL 5MG/ml INJ 2ml VIAL IV SCH ×3 (06:00→21:22)
[2020-01-21] MEDS: IPRATROPIUM BROM 0.5 MG/2.5ML INH SOL NEB SCH ×3 (06:10→18:07)
[2020-01-21] MEDS: ALBUTEROL SULF 2.5 MG/0.5ML(0.5%) NEB SOLN NEB SCH ×3 (06:10→18:07)
[2020-01-21] MEDS: ACETYLCYSTEINE 10 %(100MG/ML) SOL 4ML NEB SCH ×3 (06:10→18:07)
[2020-01-21 07:45] VITALS: BP 127/83
--- NOTE | 2020-01-21 08:30 | NUR ---
Patient sitting up with high carmona position, breakfast tray provided. Patient was informed to eat slow and take time.
--- NOTE | 2020-01-21 08:40 | NUR ---
Patient sitting up with high carmona position, the balloon of TT was deflated, patient coughing and found food out from TT, took the tray away, called RT for recommendation and adjust.
[2020-01-21] MEDS: FLUCONAZOLE 200MG/100ML 100 ML IV SCH ×2 (09:20→11:22)
[2020-01-21] MEDS: cefTRIAXone 1GM/50ML D5W 50 ML IV SCH (09:20)
[2020-01-21] MEDS: BACITRACIN TOP OINT 1 UD PKG TOP SCH ×2 (09:21→22:00)
[2020-01-21] MEDS: AMIODARONE HCL 200 MG TAB PO SCH ×2 (09:21→21:23)
--- NOTE | 2020-01-21 09:30 | NUR ---
Mouth care provided, partial linen changed, reposition at this time.
--- NOTE | 2020-01-21 10:00 | NUR ---
Checked NG content, got around 20 ml with curd content, returned the content, and gave medication.
--- NOTE | 2020-01-21 10:40 | NUR ---
Dr. Stapleton at the bedside, seen patient at this time, no new order, okay to downgrade if Dr. Miller agree.
--- NOTE | 2020-01-21 10:50 | NUR ---
Dr. Miller at the bedside, seen and examined patient at this time, received order for D/C IV hydration, keep 3-lumen (central line for now), Continue Glucerna and transfer to Tele.
--- NOTE | 2020-01-21 10:58 | NUR ---
Patient able to take a nap at this time. HR 70-80 /min, O2 saturation 97%, RR 30-40 /min.
[2020-01-21 11:45] VITALS: BP 116/77
--- NOTE | 2020-01-21 13:00 | NUR ---
Patient sitting up on the bed, Lunch tray provided, inflate the balloon of TT per RT recommendation, patient still coughing and cough the food out through the TT, explained patient that will keep NPO, continue Glucerna as order.
[2020-01-21] MEDS: MICAFUNGIN SODIUM 100 MG in SODIUM CHL 0.9% 100 ML IV SCH (13:32)
--- NOTE | 2020-01-21 13:55 | NUR ---
PT at the bedside.
--- NOTE | 2020-01-21 14:10 | NUR ---
Patient sitting on the chair, 2 PT assisted for transferred from bed to chair.
--- NOTE | 2020-01-21 14:40 | NUR ---
Patient went back to bed by 2 PT assisted. BP 115/78 mmHg, HR 80-90/min O2 saturation 98% with O2 Neb 30% 8 LPM, RR 30-36/min.
--- NOTE | 2020-01-21 14:57 | NUR ---
Wound care nurse at the bedside.
--- NOTE | 2020-01-21 15:02 | NUR ---
WOUND CARE NOTE: Wound care in to see patient for reevaluation of wounds and skin integrity monitoring. Patient continue resting on air bed in SDU Rm. 263. Patient is on O2 via trach. He's able to assist in turning and repositioning. His Irwin score is 16. No reports of pain at this time. Skin/wound assessment done with the assistance of patient's nurse, MICHAEL Deluna. Patient's sacral pressure injury, looks bigger, measuring 5x4cm. Wound bed is red, pale pink with yellow slough.Jenise wound is bright red, minimal serous drainage noted, no odor noted. Patient is having multi episode of loose stool per staff's report. Jenise care given, applied Z Guard cream and covered wound with Opti foam gentle dressing. Upper chest/distal neck open ulceration to distal trach site ulcer looks resolving, still display erythema. He continue receiving BID ointment to trach site wound. New photograph of wounds are taken for reference. Patient tolerated well. Repositioned patient for comfort facing his Rt side,redistributed pressure points with pillows. MICHAEL Deluna at bedside. RECOMMENDATION:Continuation of all wound care orders prescribed by MD, continue with skin/wound plan of care, continue monitoring by wound care while patient is hospitalized. Addendum: 01/21/20 at 2006 by Florinda Trujillo RN Amended: Links added.
--- NOTE | 2020-01-21 15:42 | NUR ---
YOLANDA pt transferred to floor HENDRICKSCDAENJOEL transferred to 234 via hospital bed on monitoring and evaluation advisor (Tele#[id number]) and portable 02. All patient medications and personal belongings transferred with patient to receiving floor. Patient care transferred to Melany RODRIGUEZ.Triple lumen at right IJ flushed with NS, patient, got blood returned all the lumen. RT notified for transferred. Connected ICD with Atrium under 20 cmH2O and suction wall.
--- NOTE | 2020-01-21 15:45 | NUR ---
received report from Mikie. Went over patient's equipment with Mikie at bedside. Will find a tube feeding pump and resume tube feeding. patient appears calm and relaxed.
--- NOTE | 2020-01-21 19:05 | NUR ---
Opening Shift Note Received report from kath King RN. Assumed care of patient, awake and alert. Guards at bedside. No S/S of distress/SOB or pain. Patient has NG tube running glucerna 1.2 at 65ml/ hour, has chest tube cannister connected to ICD to right chest, tracheostomy on 8L, and RIJ 3 lumens. Instructed on POC and to call for assist PRN, will continue to monitor for changes Q1hr and PRN. Bed place in lowest semi-fowlers position and call light within reach.
[2020-01-21] MEDS: PROMETHAZINE HCL 25 MG/ML 1ML IV PRN (21:23)
[2020-01-21 22:00] VITALS: BP 125/85
--- NOTE | 2020-01-22 00:30 | NUR ---
PATIENT HAD A SOFT BROWN BOWEL MOVEMENT. COMPLETE BED CHANGED DONE.
[2020-01-22] MEDS: InsuLIN REG 1unit/0.01ml Soln (100units/ml) SC SCH ×4 (00:54→17:25)
[2020-01-22] MEDS: LORazepam 2MG/ML-1ML VIAL IV PRN ×2 (00:55→20:26)
--- NOTE | 2020-01-22 01:06 | NUR ---
DRESSING TO SACRUM CHANGED. CLEANSED WOUND WITH SOAP AND WATER AFTER BOWEL MOVEMENT. APPLIED Z-GUARD GABY WOUND AND COVERED WITH OPTIFOAM DRESSING. PATIENT TOLERATED WELL.
--- NOTE | 2020-01-22 01:09 | NUR ---
PATIENT SELF SUCTIONED ORALLY 2 TIMES.
[2020-01-22] MEDS: PROMETHAZINE HCL 25 MG/ML 1ML IV PRN ×3 (02:50→20:26)
--- NOTE | 2020-01-22 02:50 | NUR ---
GIVEN PHENERGAN FOR NAUSEA ORDERED. WILL MONITOR
[2020-01-22 05:00] VITALS: BP 120/85
[2020-01-22] MEDS: METOCLOPRAMIDE HCL 5MG/ml INJ 2ml VIAL IV SCH ×3 (06:05→23:00)
[2020-01-22] MEDS: INSULIN LANTUS (GLARGINE) 1 /0.01ml (100units/ml) SC SCH ×2 (06:06→17:25)
[2020-01-22] MEDS: ACCU-CHEK COMFORT CURVE STRIP VI SCH ×4 (06:07→17:39)
[2020-01-22] MEDS: ALBUTEROL SULF 2.5 MG/0.5ML(0.5%) NEB SOLN NEB SCH ×3 (06:53→18:17)
[2020-01-22] MEDS: IPRATROPIUM BROM 0.5 MG/2.5ML INH SOL NEB SCH ×3 (06:53→18:17)
--- NOTE | 2020-01-22 06:53 | NUR ---
Respiratory note: Received pt from cnc machinist 2nd shift RT. Pt with tracheostomy 8.0 Shiley, stoma asymptomatic at this time, spare trach available at bedside. Pt with T-piece connected to cool mist aerosol 10lpm, FIO2 30%. Medneb tx administered inline, no adverse reactions noted. Breath sounds bilateral coarse crackles. Deep tracheal suctioned x2 for large thick yellow secretions. Pt connected to continuous bedside POX monitor. HR 104, RR 22, SPO2 98%. Pt awake and alert, follows simple commands. No s/s of respiratory distress noted. Officers at bedside. Will continue to monitor.
[2020-01-22] MEDS: ACETYLCYSTEINE 10 %(100MG/ML) SOL 4ML NEB SCH ×3 (06:54→18:18)
[2020-01-22] MEDS ORDERED: fentaNYL Drip 2500mCg/250mlNS 250 ML IV SCH (07:24)
--- NOTE | 2020-01-22 07:27 | NUR ---
PLACED ORDER FOR FENTANYL. ORDER WAS RECEIVED ON 12/11/2019 FOR PROTOCOL FOR SEDATION ON PATIENT.
--- NOTE | 2020-01-22 07:30 | NUR ---
Opening Shift Note Assumed care of patient, awake and alert, resting. No S/S of distress/SOB, trach in place, denies pain. Instructed on POC and to call for assist PRN, will continue to monitor for changes Q1hr and PRN.
--- NOTE | 2020-01-22 07:45 | NUR ---
Respiratory note: Placed pt on trach collar per pt's request, with cool mist aerosol FIO2 30%. Pt tolerating changes well, no adverse reactions noted, SPO2 97%. Aerosol water replaced, soiled corregated tubing replaced. Will continue to monitor.
[2020-01-22 08:40] VITALS: BP 117/78
[2020-01-22] MEDS: cefTRIAXone 1GM/50ML D5W 50 ML IV SCH (08:54)
[2020-01-22] MEDS: KETOROLAC TROMETH 30 MG/ML 1ML VIAL IV PRN (10:28)
[2020-01-22] MEDS: AMIODARONE HCL 200 MG TAB PO SCH ×2 (10:29→23:00)
[2020-01-22] MEDS: DIGOXIN (250MCG/ML) 2 ML AMPULE IV SCH (10:29)
[2020-01-22] MEDS: FLUCONAZOLE 200MG/100ML 100 ML IV SCH ×2 (10:30→11:00)
[2020-01-22] MEDS: BACITRACIN TOP OINT 1 UD PKG TOP SCH ×2 (12:30→23:00)
--- NOTE | 2020-01-22 12:54 | NUR ---
I called [facility] [employer] Hardware Design Engineer Estela [phone] and left message asking to discuss the buttermaker helper plan for this patient-awaiting return call.
[2020-01-22 13:04] VITALS: BP 112/79
--- NOTE | 2020-01-22 13:10 | NUR ---
Respiratory note: Coarse breath sounds noted, deep tracheal suctioned for large thick yellow secretions. Pt tolerated well, no adverse reactions noted. Placed back on trach collar with cool aerosol mist. Medneb tx administered inline, no adverse reactions noted. Trach care completed without incident. No s/s of respiratory distress noted. Pt aware to push call light if needed. Officers at bedside.
[2020-01-22] MEDS: MICAFUNGIN SODIUM 100 MG in SODIUM CHL 0.9% 100 ML IV SCH (13:44)
--- NOTE | 2020-01-22 14:39 | NUR ---
Nutrition Follow-up Notes Wt.: 84.4 kg Pt`s awake with guards at bedside. Per pt request, oral diet discontinued d/t food causing pt distress, unable to digest through normal esophageal route. TF with Glucerna 1.2 @ 60 ml/hr resumed. Est. Needs BW 81 [id number] kcals (20-25 kcal/kgBW). 101-126 gms/day (1.2-1.5 gm/kgBW low prealb). Will continue to monitor pertinent labs and reassess nutrient need prn. - Labs: GLU 140 H, ALB 10.8 H, ALB 1.6 L. Skin: Irwin scale 16 mod risk, pt with pressure ulcers per documentation liaison. refer to WC notes for details GI: Pt had 1 BM noted on 01/21 per documentation liaison. PES: Altered nutrition related lab values r/t current medical condition aeb hyponatremia, elevated RFTs, hyperglycemia, hypocalcemia, elevated bilirubin severe hypoalbuminemia Will continue to monitor NPO status, EN tolerance, skin status, pertinent labs and weight trend. F/u in 2-3 days. Rec.: 1.) Resume TF as medically feasible to goal rate of 60 gm/hr per MD approval. 2) advance diet as medically feasible. 3) Continue current plan of care.
--- NOTE | 2020-01-22 16:08 | NUR ---
Patient refused PT. MICHAEL Eckert was notified. Addendum: 01/22/20 at 1609 by MIRNA ALATORRE PTT Amended: Links added.
[2020-01-22 16:17] VITALS: BP 141/81
--- NOTE | 2020-01-22 19:50 | NUR ---
RECEIVED PATIENT FROM DAY SHIFT RN. PATIENT RESTING IN BED. NO S/S OF DISTRESS AND SOB NOTED. SUCTIONED PATIENT FROM TRACHEOSTOMY. NG TUBE IN PLACE RUNNING GLUCERNA AT 65 ML/HR. CHEST TUBE CANNISTER CONNECTED TO ICD TO RIGHT CHEST. RIJ IN PLACE. SPECIAL MATTRESS BED IN LOWEST POSITION WITH SIDE RAILS UP X 2. CALL HERNANDEZ WITHIN REACH. ALARM ON. OFFICER GUARDS AT BEDSIDE. CONTINUE TO MONITOR FOR CHANGES Q1H AND PRN.
[2020-01-22] MEDS: ACETAMINOPHEN 650 mg PER 20 mL UD GT PRN (20:27)
--- NOTE | 2020-01-22 21:36 | NUR ---
PATIENT PULLED OUT NG TUBE, TRIED TO PUT A NEW TUBE BACK, PATIENT RESISTED TO THE NG TUBE. PATIENT NEEDED A BREAK FOR NOW. WILL TRY LATER. CONTINUE TO MONITOR.
[2020-01-22 22:00] VITALS: BP 122/76
--- NOTE | 2020-01-22 23:54 | NUR ---
CHARGE NURSE SONIA AT BEDSIDE AND TRIED TO PUT NG TUBE. PATIENT REALLY AGGRESSIVE TO PUT NG TUBE IN. PATIENT NON-COMPLIANT AND TRIED TO HIT OTHERS. WILL CALL MD CASTELLON. CONTINUE TO MONITOR.
[2020-01-23] MEDS: ACCU-CHEK COMFORT CURVE STRIP VI SCH ×4 (00:21→18:24)
--- NOTE | 2020-01-23 00:22 | NUR ---
ACCU-CHECK, BS 121. NO COVERAGE. CONTINUE TO MONITOR.
--- NOTE | 2020-01-23 00:34 | NUR ---
MD CASTELLON PAGED REGARDING TO PATIENT AGGRESSIVE TO PUT NG TUBE IN. TRIED SEVERAL TIMES, PATIENT NON-COMPLIANT AND TRIED TO HIT OTHERS. MEDICATION COULD NOT GIVE AT THIS TIME. WAITING FOR CALL BACK. CONTINUE TO MONITOR.
--- NOTE | 2020-01-23 00:50 | NUR ---
returned call MD CASTELLON returned call, updated on patient status and reason for call, orders received. CHANGED PATIENT TO CLEAR LIQUID DIET. WILL CARRY IT OUT. Continue care.
[2020-01-23 05:00] VITALS: BP 128/82
[2020-01-23] MEDS: InsuLIN REG 1unit/0.01ml Soln (100units/ml) SC SCH ×4 (06:00→18:00)
[2020-01-23] MEDS: METOCLOPRAMIDE HCL 5MG/ml INJ 2ml VIAL IV SCH ×3 (06:12→21:43)
[2020-01-23] MEDS: INSULIN LANTUS (GLARGINE) 1 /0.01ml (100units/ml) SC SCH ×2 (06:26→18:00)
[2020-01-23] MEDS: ACETYLCYSTEINE 10 %(100MG/ML) SOL 4ML NEB SCH ×3 (06:54→18:50)
[2020-01-23] MEDS: IPRATROPIUM BROM 0.5 MG/2.5ML INH SOL NEB SCH ×3 (06:54→18:49)
[2020-01-23] MEDS: ALBUTEROL SULF 2.5 MG/0.5ML(0.5%) NEB SOLN NEB SCH ×3 (06:54→18:49)
--- NOTE | 2020-01-23 06:54 | NUR ---
RECEIVE PT WITH A NUMBER 8.0 SHILEY TRACHEOSTOMY IN SITU, PROPERLY SECURED AND PATENT. PT IS AWAKE, ALERT AND ORIENTED, ABLE TO UNDERSTAND AND FOLLOW INDICATIONS. PT ON SEMI MCCARTY POSITION. BS ARE INSPIRATORY RHONCHI TO AUSCULTATION. TRACH SUCTION DONE FOR MODERATE PALE SECRETION WITHOUT INCIDENT. PT ON 30% FIO2 VIA TRACH MASK. CONTINUOUS PULSE OX AT BEDSIDE, ALARMS FUNCTIONAL AND AUDIBLE. BAG AND MASK AT BEDSIDE ALONG WITH O2 SOURCE. HEALING PRESSURE ULCERS UNDERNEATH TRACHEOSTOMY FLANGE. TRACHEOSTOMY GAUZE REPLACED. CLEAN AROUND STOMA. PT TOLERATING WELL. MN WAS GIVEN WITHOUT INCIDENT. OFFICERS AT BEDSIDE. WILL CONTINUE TO MONITOR PT.
[2020-01-23] MEDS: cefTRIAXone 1GM/50ML D5W 50 ML IV SCH (11:04)
[2020-01-23] MEDS: FLUCONAZOLE 200MG/100ML 100 ML IV SCH ×2 (11:05→12:05)
[2020-01-23] MEDS: AMIODARONE HCL 200 MG TAB PO SCH ×2 (11:07→21:43)
[2020-01-23] MEDS: BACITRACIN TOP OINT 1 UD PKG TOP SCH ×2 (11:09→21:44)
[2020-01-23 13:00] VITALS: BP 122/77
[2020-01-23] MEDS: MICAFUNGIN SODIUM 100 MG in SODIUM CHL 0.9% 100 ML IV SCH (13:35)
--- NOTE | 2020-01-23 16:35 | NUR ---
Pt worked on bedside ther ex x 10 reps of each exercise. Pt also worked on sit to stand x 5 reps and was able to complete marching steps. Pt was placed back to bed in supine along w/ call light in reach Addendum: 01/23/20 at 1637 by Nikole Collins PT Amended: Links added.
[2020-01-23 16:50] VITALS: BP 114/74
--- NOTE | 2020-01-23 18:05 | NUR ---
at bedside MD Miller at bedside, aware of patient's status including patient refused NGT placement and states he "cannot swallow well still". Patient ate about 25% of meals today no distress noted. 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 New orders received for pureed diet at this time as patient will tolerated better per MD. No further orders received at this time. Cont care
[2020-01-23 21:31] VITALS: BP 114/74
[2020-01-23 22:00] VITALS: BP 129/79
[2020-01-24 05:00] VITALS: BP 128/83
[2020-01-24] MEDS: ACCU-CHEK COMFORT CURVE STRIP VI SCH ×4 (05:43→18:26)
[2020-01-24] MEDS: InsuLIN REG 1unit/0.01ml Soln (100units/ml) SC SCH ×4 (05:43→18:27)
[2020-01-24] MEDS: INSULIN LANTUS (GLARGINE) 1 /0.01ml (100units/ml) SC SCH ×2 (05:47→18:27)
[2020-01-24] MEDS: METOCLOPRAMIDE HCL 5MG/ml INJ 2ml VIAL IV SCH ×3 (05:54→22:11)
[2020-01-24] MEDS: IPRATROPIUM BROM 0.5 MG/2.5ML INH SOL NEB SCH ×3 (07:34→17:59)
[2020-01-24] MEDS: ACETYLCYSTEINE 10 %(100MG/ML) SOL 4ML NEB SCH ×3 (07:34→17:59)
[2020-01-24] MEDS: ALBUTEROL SULF 2.5 MG/0.5ML(0.5%) NEB SOLN NEB SCH ×2 (07:34→11:43)
[2020-01-24 09:00] VITALS: BP 123/78
[2020-01-24] MEDS: cefTRIAXone 1GM/50ML D5W 50 ML IV SCH (09:53)
[2020-01-24] MEDS: AMIODARONE HCL 200 MG TAB PO SCH ×2 (09:57→22:11)
[2020-01-24] MEDS: BACITRACIN TOP OINT 1 UD PKG TOP SCH ×2 (09:57→22:12)
[2020-01-24] MEDS: DIGOXIN (250MCG/ML) 2 ML AMPULE IV SCH (09:57)
[2020-01-24] MEDS: FLUCONAZOLE 200MG/100ML 100 ML IV SCH ×2 (09:58→11:00)
--- NOTE | 2020-01-24 10:00 | NUR ---
Dressing changed as ordered and complete linen change performed. Patient tolerated well. Aspiration precs in place.
--- NOTE | 2020-01-24 10:22 | NUR ---
I spoke with [facility] Director Welfare Estela regarding the exterminator plan of care for this patient-she said they are working on a compassionate release versus transfer to a [facility] [employer]-she will call me back with an update.
--- NOTE | 2020-01-24 11:43 | NUR ---
RT NOTE: PT SUCTIONED. SECRETIONS SMALL/THICK/CREAMY. WILL CONTINUE TO MONITOR.
[2020-01-24 13:00] VITALS: BP 128/82
[2020-01-24] MEDS: MICAFUNGIN SODIUM 100 MG in SODIUM CHL 0.9% 100 ML IV SCH (13:45)
--- NOTE | 2020-01-24 13:50 | NUR ---
RT NOTE: CALLED TO BEDSIDE BY RN. RN STATED THAT PT IS C/O CONSTANT COUGH AND IS WONDERING IF PRN TX CAN BE GIVEN. I RECOMMEND SPEAKING WITH MD ABOUT COUGH SUPRESSANT AND ROBINOL FOR SECRETION PRODUCTION BEING COUGHED FROM STOMA. I ALSO ASKE HER TO SPEAK WITH MD ABOUT ASPIRATION RISK DUE TO MODERATE AMOPUNTS OF RED SECRETIONS COUGHED UP INTO COOL AEROSOL TUBING FROM JELLO. SHE AGREES TO SPEAK WITH MD. WILL RETURN FOR PRN AND TRACH CARE.
[2020-01-24] MEDS ORDERED: FLUTICASONE PROP NASAL SPR 0.05 % (50MCG) 16GM EACHNOSTRI ONE (14:45)
[2020-01-24] MEDS ORDERED: MONTELUKAST SODIUM 10 MG TAB PO ONE (14:45)
[2020-01-24] MEDS ORDERED: LORATADINE 10 MG TAB PO ONE (14:45)
--- NOTE | 2020-01-24 14:47 | NUR ---
Spoke to MD Miller and notified of patient's status. New orders reived for Loratidine Advair Flonase spray and singular at this time. This rn expressed concern regarding patient noted with increased coughing today, increased sputum and risk of aspiration noted as patient was eating lunch, MD states cont soft diet at this time and patient has passed swallow eval. MD states symptoms may be due to allergies acting up, will medicate as ordered. Will cont care
--- NOTE | 2020-01-24 15:00 | NUR ---
Spoke to pharmacist regarding Advair per Pharmacist [facility] does not carry Advair or the combination of it at this time. Med not avail at this time.
[2020-01-24] MEDS: ALBUTEROL SULF 2.5 MG/0.5ML(0.5%) NEB SOLN NEB PRN (15:04)
--- NOTE | 2020-01-24 15:04 | NUR ---
RT NOTE: TRACH CARE DONE. DRAINAGE IS YELLOW. COOL AEROSOL TUBING CHANGED. PT SUCTIONED WITH SECRETIONS SMALL/THIN-THICK/CREAMY. WILL CONTINUE TO MONITOR.
[2020-01-24] MEDS: ACETAMINOPHEN 325 MG TAB PO PRN ×2 (15:30→22:12)
[2020-01-24 17:00] VITALS: BP 126/71
--- NOTE | 2020-01-24 19:00 | NUR ---
Patient care endorsed endorsed care to Jayda RODRIGUEZ. Patient sitting up in bed high Fowlers with aspiration precs in place. Pt sitting up comfortably in bed in no acute distress or sob. Patient encouraged to eat dinner but states he's "afraid of getting the cough again" pt ate about 25% of meal so far. Chest tube 50ml output at this time. Dressing to sacrum changed as ordered. Fall precs in place per protocol. Call light within reach and bed alarm on at all times. Guards at bedside.
[2020-01-24] MEDS: ADVAIR IN SCH (20:15)
[2020-01-24] MEDS: PROMETHAZINE HCL 25 MG/ML 1ML IV PRN (20:31)
[2020-01-24 22:00] VITALS: BP 133/82
--- NOTE | 2020-01-24 22:15 | NUR ---
TRACH CARE GIVEN TO PATIENT BACITRACIN APPLIED TO REDNESS AROUND STOMA. PATIENT HAD PRODUCTIVE COUGH, SUCTIONED PATIENT USING ASEPTIC TECHNIQUE VIA TRACH. PATIENT TOLERATED WELL AND IN NO APPARENT RESPIRATORY DISTRESS OR SOB. ORAL CARE GIVEN TO PATIENT. WILL CONTINUE TO MONITOR PATIENT. SUCTION AT BEDSIDE.
[2020-01-25 05:00] VITALS: BP 123/81
[2020-01-25] MEDS: ACCU-CHEK COMFORT CURVE STRIP VI SCH ×5 (05:28→22:20)
[2020-01-25] MEDS: METOCLOPRAMIDE HCL 5MG/ml INJ 2ml VIAL IV SCH ×3 (05:28→22:16)
[2020-01-25] MEDS: InsuLIN REG 1unit/0.01ml Soln (100units/ml) SC SCH ×5 (05:40→22:26)
[2020-01-25] MEDS: INSULIN LANTUS (GLARGINE) 1 /0.01ml (100units/ml) SC SCH ×2 (05:43→18:00)
[2020-01-25 06:07] LABS: Basophils # (auto) 0.1 10 ^3/uL (0-0.2); Eosinophils # (auto) 0.4 10 ^3/uL (0-0.8); Lymphocytes # (auto) 1.7 10 ^3/uL (0.4-5.4); Monocytes % (auto) 3.9 % (0.0-12.0)
[2020-01-25 06:09] LABS: Basophils % (auto) 0.6 % (0.0-2.0); Eosinophils % (auto) 3.6 % (0.0-7.0); Hematocrit 37.3 % (41.0-53.0); Hemoglobin 12.1 g/dL (13.5-17.5); Mean Corpuscular Hemoglobin 27.7 pg (28.0-32.0); Mean Corpuscular Hgb Conc. 32.5 g/dL (32.0-36.0); Mean Corpuscular Volume 85.3 fL (80.0-100.0); Monocytes # (auto) 0.4 10 ^3/uL (0-1.3); Neutrophils # (auto) 8.9 10 ^3/uL (1.6-8.6); Neutrophils % (auto) 76.9 % (37.0-80.0); Platelet Count (auto) 690 10^3/uL (140-450); Red Blood Cells 4.37 10^6/uL (4.5-5.90); White Blood Cell 11.5 10^3/uL (4.4-10.8)
--- NOTE | 2020-01-25 06:10 | NUR ---
PATIENT HAD ABOUT 70ML DRAINAGE IN CHEST TUBE WATERSEAL. PATIENT HAD PRODUCTIVE COUGHING, SUCTIONED PATIENT VIA TRACH USING ASEPTIC TECHNIQUE PATIENT IN NO APPARENT RESPIRATORY DISTRESS ON TRACH COLLAR 8L OXYGEN. ORAL CARE GIVEN TO PATIENT.
[2020-01-25 06:14] LABS: Red Cell Distribution Width 21.2 % (11.8-14.3)
[2020-01-25 06:24] LABS: Calcium 8.3 mg/dL (8.5-10.1); Potassium 3.7 mmol/L (3.5-5.1)
[2020-01-25 06:26] LABS: BUN/Creatinine Ratio 12.1
--- NOTE | 2020-01-25 07:45 | NUR ---
PT. ASSESSED FOR PRN. MN. TX., NO RESP. DISTRESS OR SOB NOTED. PT. IS EATING BREAKFAST AT THIS TIME. PT. STATES HE DOESN'T NEED A TX. AT THIS TIME. BS. ARE CLEAR, NO SX. NEEDED AT THIS TIME. PT. IS AWARE HE MAY CALL IF NEEDED. NO TX. GIVEN AT THIS TIME.
--- NOTE | 2020-01-25 08:30 | NUR ---
SUCTION PATIENT TRACH WITH STERILE TECHNIQUE USING INLINE PINEDA. CHANGED PATIENTS YAUNKER AND CANISTER. PATIENT IS CURRENTLY ON 8 LITERS VIA HUMIDIFIED TRACH COLLAR. LUNG SOUNDS CLEAR / DIMINISHED TO AUSCULTATION POST SUCTIONING. PATIENT HAS 2 GUARDS AT BEDSIDE AND HAS NO COMPLAINTS OF PAIN OR SOB, WILL CONT TO MONITOR
[2020-01-25 09:00] VITALS: BP 131/88
[2020-01-25] MEDS: cefTRIAXone 1GM/50ML D5W 50 ML IV SCH (09:58)
[2020-01-25] MEDS: ADVAIR IN SCH ×2 (10:00→22:00)
[2020-01-25] MEDS: LORATADINE 10 MG TAB PO SCH (10:04)
[2020-01-25] MEDS: FLUTICASONE PROP NASAL SPR 0.05 % (50MCG) 16GM EACHNOSTRI SCH (10:04)
[2020-01-25] MEDS: MONTELUKAST SODIUM 10 MG TAB PO SCH (10:05)
[2020-01-25] MEDS: BACITRACIN TOP OINT 1 UD PKG TOP SCH ×2 (10:05→22:17)
[2020-01-25] MEDS: FLUCONAZOLE 200MG/100ML 100 ML IV SCH ×2 (10:16→10:28)
--- NOTE | 2020-01-25 12:31 | NUR ---
DR. CABRALES CALLED TO INQUIRE ON PATIENTS CHEST TUBE STATUS
[2020-01-25 13:00] VITALS: BP 131/88
--- NOTE | 2020-01-25 13:15 | NUR ---
PLANT AND MACHINERY VALUER, respiratory therapist and nursing educated patient in safety of swallow with tracheostomy. Cuff must be fully inflated during PO intake. Nursing will advise next shift in report.
[2020-01-25] MEDS: MICAFUNGIN SODIUM 100 MG in SODIUM CHL 0.9% 100 ML IV SCH (13:16)
--- NOTE | 2020-01-25 14:20 | NUR ---
TRACH. CARE DONE AT THIS TIME. CHANGED GAUZE, CLEANED SITE, AND INNER CANNULA. PT. TOLERATED WELL. CUFF INFLATED, CUFF PRESSURE [id number]. SX'D TRACH FOR LARGE AMOUNT OF THICK WHITE SECRETIONS. ZX=619,RR=24,SP02=98%.
--- NOTE | 2020-01-25 14:54 | NUR ---
Nutrition Follow-up Notes Wt.: 82.2 kg Pt`s awake with guards at bedside. Pt pureed diet resumed, per pt, tolerating pretty well with some coughing. Pt appetite is fair aeb ave 33% x 6 PO intake per RN doc. Will continue to closely monitor pertinent labs, PO intake and skin status prn. Will followup in 3-5 days Est. Needs BW 81 [id number] kcals (20-25 kcal/kgBW). 101-126 gms/day (1.2-1.5 gm/kgBW low prealb). Will continue to monitor pertinent labs and reassess nutrient need prn. - Labs: GLU 115 H, A1c 10.8 H, ALB 1.6 L Skin: Irwin scale 15 mod risk, pt with pressure ulcers per national business director. refer to notes for details GI: Pt had 1 BM noted on 01/23 per national business director. PES: Altered nutrition related lab values r/t current medical condition aeb hyponatremia, elevated RFTs, hyperglycemia, hypocalcemia, elevated bilirubin severe hypoalbuminemia Will continue to monitor NPO status, oral diet tolerance, skin status, pertinent labs and weight trend. F/u in 2-3 days. Rec.: 1.) Continue to carefully monitor pt PO intake to meet goal of at least 785% of meals. 2) Continue current plan of care.
--- NOTE | 2020-01-25 15:38 | NUR ---
DR. CABRALES AT BEDSIDE TO REMOVE PATIENTS CHEST TUBE. CHEST TUBE REMOVED WITH STERILE TECHNIQUE AND COVERED WITH DRY STERILE DRESSING. PATIENT TOLERATED PROCEDURE WELL. LUNG SOUNDS COARSE TO BILATERAL UPPER LOBES. CONTINUOUS BEDSIDE PULSE OXYGEN SATURATION AT 98%. NO EVIDENCE OF SOB NOTED. ORDER FOR PORTABLE CHEST X RAY S/P CHEST TUBE REMOVAL RECEIVED, WILL DOCUMENT AND CARRY OUT.
[2020-01-25 17:00] VITALS: BP 123/77
[2020-01-25] MEDS: ACETAMINOPHEN 325 MG TAB PO PRN (22:27)
[2020-01-25 22:45] VITALS: BP 131/84
--- NOTE | 2020-01-25 23:55 | NUR ---
TRACH CARE DONE. COOL AEROSOL WATER CHANGED OUT. PT IS RESTING WITH NO DISTRESS NOTED. WILL CONTINUE TO MONITOR.
[2020-01-26] MEDS: ACETAMINOPHEN 325 MG TAB PO PRN (04:07)
[2020-01-26 05:18] VITALS: BP 130/85
[2020-01-26] MEDS: METOCLOPRAMIDE HCL 5MG/ml INJ 2ml VIAL IV SCH ×3 (05:18→21:47)
[2020-01-26] MEDS: ACCU-CHEK COMFORT CURVE STRIP VI SCH ×4 (05:31→23:57)
[2020-01-26] MEDS: InsuLIN REG 1unit/0.01ml Soln (100units/ml) SC SCH ×4 (05:35→23:58)
[2020-01-26] MEDS: INSULIN LANTUS (GLARGINE) 1 /0.01ml (100units/ml) SC SCH ×2 (06:00→18:00)
--- NOTE | 2020-01-26 06:56 | NUR ---
UPDATED PROVIDER FROM LONG TERM REGARDING PATIENT CARE AND STATUS UPDATE. INFORMED DOCTOR THAT PATIENT CHEST TUBE REMOVED YESTERDAY SINCE PATIENT HAS LOW DRAINAGE OUTPUT.
--- NOTE | 2020-01-26 07:40 | NUR ---
PT IS AWAKE, AND ALERT. NO RESPIRATORY DISTRESS NOTED. SPO2 98% ON 8L 28% FIO2, HR 102, RR 20, BS CLEAR/DIMINISHED BILATERALLY. PRN MEDNEB TX NOT INDICATED. PT INFORMED TO PUSH CALL BUTTON IF INCREASED WOB, SOB OR WHEEZING OCCURS. GUARDS AT BEDSIDE.
[2020-01-26 09:00] VITALS: BP 128/85
[2020-01-26] MEDS: ADVAIR IN SCH ×2 (10:00→21:46)
[2020-01-26] MEDS: cefTRIAXone 1GM/50ML D5W 50 ML IV SCH (10:06)
[2020-01-26] MEDS: FLUTICASONE PROP NASAL SPR 0.05 % (50MCG) 16GM EACHNOSTRI SCH (10:06)
[2020-01-26] MEDS: FLUCONAZOLE 200MG/100ML 100 ML IV SCH ×2 (10:06→13:02)
[2020-01-26] MEDS: MONTELUKAST SODIUM 10 MG TAB PO SCH (10:07)
[2020-01-26] MEDS: LORATADINE 10 MG TAB PO SCH (10:07)
[2020-01-26] MEDS: BACITRACIN TOP OINT 1 UD PKG TOP SCH ×2 (10:07→21:47)
[2020-01-26] MEDS: DIGOXIN (250MCG/ML) 2 ML AMPULE IV SCH (10:08)
[2020-01-26 13:00] VITALS: BP 116/84
[2020-01-26] MEDS: MICAFUNGIN SODIUM 100 MG in SODIUM CHL 0.9% 100 ML IV SCH (13:13)
--- NOTE | 2020-01-26 15:13 | NUR ---
STERILE TRACH CARE COMPLETED. PATIENT TOLERATED WELL. OXYGEN SATURATION 98% WITH CONTINUOUS BEDSIDE PULSE OX. LUNGS COARSE SOUNDING THROUGH OUT. PATIENT IS COUGHING UP WHITE SECRETIONS FROM TRACHEOSTOMY SITE. NO SOB NOTED
--- NOTE | 2020-01-26 17:00 | NUR ---
DR. CASTELLON AT BEDSIDE. ORDERS RELIEVED WILL DOCUMENT AND CARRY OUT
[2020-01-26 17:16] VITALS: BP 120/73
--- NOTE | 2020-01-26 19:00 | NUR ---
PT ASSESSED, NO SXN OR PRN TX NEEDED AT THIS TIME. AIRWAY SECURED AND PATENT, TRACH SITE CLEAN, WATER LEVEL ADEQUATE. PT IS AWAKE AND ALERT, NO SOB NOTED, BS CLEAR BILATERALLY
--- NOTE | 2020-01-26 19:25 | NUR ---
Opening Shift Note Assumed care of patient, awake and alert, resting. No S/S of distress/SOB, trach in place, denies pain. bed in low position. gaurds in room. suction done. Instructed on POC and to call for assist PRN, will continue to monitor for changes Q1hr and PRN.
[2020-01-26 21:35] VITALS: BP 114/87
[2020-01-26 23:49] VITALS: BP 128/85
[2020-01-27] MEDS: ACETAMINOPHEN 325 MG TAB PO PRN ×2 (00:19→20:40)
--- NOTE | 2020-01-27 00:20 | NUR ---
pain pt complaining of a headache. 11/20. tylenol given.
--- NOTE | 2020-01-27 03:00 | NUR ---
gave report to MICHAEL Velasco
--- NOTE | 2020-01-27 03:00 | NUR ---
Report received from MICHAEL Busby. Patient received in bed with no acute distress. Guards at bedside. Bed in low position and call light in reach.
[2020-01-27 04:51] VITALS: BP 127/82
[2020-01-27] MEDS: INSULIN LANTUS (GLARGINE) 1 /0.01ml (100units/ml) SC SCH ×2 (06:00→18:17)
[2020-01-27] MEDS: ACCU-CHEK COMFORT CURVE STRIP VI SCH ×3 (06:00→18:15)
[2020-01-27] MEDS: InsuLIN REG 1unit/0.01ml Soln (100units/ml) SC SCH ×3 (06:00→18:16)
[2020-01-27] MEDS: METOCLOPRAMIDE HCL 5MG/ml INJ 2ml VIAL IV SCH ×3 (06:05→22:06)
--- NOTE | 2020-01-27 07:30 | NUR ---
Opening Shift Note Assumed care of patient, awake and alert. No S/S of distress/SOB or pain. Instructed on POC and to call for assist PRN, will continue to monitor for changes Q1hr and PRN. GUARDS X 2 AT BEDSIDE.
--- NOTE | 2020-01-27 07:36 | NUR ---
Respiratory note: PT ASSESSED,PT IS AWAKE AND ALERT, NO SOB NOTED, BS CLEAR BILATERALLY NO PRN TX NEEDED AT THIS TIME. AIRWAY SECURED AND PATENT, TRACH SITE CLEANED, DRAIN SPONGE CHANGED AND SXN DONE. WATER LEVEL ADEQUATE.
[2020-01-27 09:00] VITALS: BP 105/76
[2020-01-27] MEDS: cefTRIAXone 1GM/50ML D5W 50 ML IV SCH (09:06)
[2020-01-27] MEDS: ADVAIR IN SCH ×2 (10:00→22:00)
[2020-01-27] MEDS: MONTELUKAST SODIUM 10 MG TAB PO SCH (10:18)
[2020-01-27] MEDS: LORATADINE 10 MG TAB PO SCH (10:18)
[2020-01-27] MEDS: FLUCONAZOLE 200MG/100ML 100 ML IV SCH ×2 (10:18→11:22)
[2020-01-27] MEDS: BACITRACIN TOP OINT 1 UD PKG TOP SCH ×2 (10:18→22:06)
[2020-01-27] MEDS: FLUTICASONE PROP NASAL SPR 0.05 % (50MCG) 16GM EACHNOSTRI SCH (10:18)
[2020-01-27] MEDS: PROMETHAZINE HCL 25 MG/ML 1ML IV PRN (11:51)
[2020-01-27 13:00] VITALS: BP 111/78
--- NOTE | 2020-01-27 13:00 | NUR ---
PT STATED HE CAN'T TOLERATE HIS PUREED DIET AND STILL FEELS LIKE HE CAN'T SWALLOW IT BUT IS ABLE TO DRINK MILK AND OTHER FLUIDS WITHOUT ANY ISSUES. PT REQUESTED A FULL LIQUID DIET FOR NOW.
[2020-01-27] MEDS: MICAFUNGIN SODIUM 100 MG in SODIUM CHL 0.9% 100 ML IV SCH (13:51)
--- NOTE | 2020-01-27 16:01 | NUR ---
Respiratory note: TRACH CARE DONE. NECK AND STOMA SITE CLEANED AND DRIED, INNER CANNULA CLEANED, PT SXN, DRAIN SPONGE CHANGED.
[2020-01-27 17:00] VITALS: BP 132/75
--- NOTE | 2020-01-27 17:34 | NUR ---
PAGED RT RE: INFLATION OF TRACHEAL CUFF DURING MEALS. PER RT, CUFF HAS TO BE DEFLATED DURING MEALS AND THAT RT IS THE ONE THAT INFLATE AND DEFLATES IT.
--- NOTE | 2020-01-27 18:38 | NUR ---
RT NOTE: TRACH CARE PERFORMED. PT ON 10LPM FIO2 .30 COOL AEROSOL WITH TRACH COLLAR. PT HAD COPIOUS AMOUNT OF THICK SILVER SECRETIONS AROUND TRACH AREA. NO REDNESS OR BREAK DOWN NOTED. INNER CANULA CLEANED. TRACHEAL SPONGES REPLACED. SUCTIONED COPIOUS AMOUNTS OF SECRETIONS THROUGH TRACH. PT IN NO DISTRESS. WILL CONTINUE TO MONITOR PT.
--- NOTE | 2020-01-27 18:47 | NUR ---
CLOSING NOTES Patient awake and alert. No S/S of distress/SOB or pain. PT TOLERATED FULL LIQUID DIET BETTER. GUARDS X 2 AT BEDSIDE,
--- NOTE | 2020-01-27 19:23 | NUR ---
Opening Shift Note Assumed care of patient. Pt is awake, alert, and oriented. No S/S of respiratory distress; respirations are regular and non-labored. Bed in lowest position, brakes locked, side rails X2 up, call light within reach. Tele box matches to monitor, leads are correctly placed. IJ is asymptomatic and patent. Patient has a trach and getting O2 via collar at 10 lpm. Goldstein is patent and on bed frame. POC discussed with a patient. Pt was instructed to call for assistance PRN. Will continue to monitor for changes Q1hr and PRN.
[2020-01-27] MEDS: LORazepam 2MG/ML-1ML VIAL IV PRN (20:39)
[2020-01-27 21:41] VITALS: BP 111/79
[2020-01-28] MEDS: ACCU-CHEK COMFORT CURVE STRIP VI SCH ×4 (00:18→17:50)
[2020-01-28 05:02] VITALS: BP 119/84
[2020-01-28] MEDS: METOCLOPRAMIDE HCL 5MG/ml INJ 2ml VIAL IV SCH ×3 (05:23→22:00)
[2020-01-28] MEDS: InsuLIN REG 1unit/0.01ml Soln (100units/ml) SC SCH ×4 (05:28→17:55)
[2020-01-28] MEDS: PROMETHAZINE HCL 25 MG/ML 1ML IV PRN ×3 (05:42→19:19)
[2020-01-28] MEDS: INSULIN LANTUS (GLARGINE) 1 /0.01ml (100units/ml) SC SCH ×2 (05:47→17:56)
[2020-01-28 09:00] VITALS: BP 116/81
[2020-01-28] MEDS: cefTRIAXone 1GM/50ML D5W 50 ML IV SCH (09:45)
[2020-01-28] MEDS: LORATADINE 10 MG TAB PO SCH (09:54)
[2020-01-28] MEDS: MONTELUKAST SODIUM 10 MG TAB PO SCH (09:54)
[2020-01-28] MEDS: ADVAIR IN SCH ×2 (10:00→22:00)
[2020-01-28] MEDS: FLUTICASONE PROP NASAL SPR 0.05 % (50MCG) 16GM EACHNOSTRI SCH (10:06)
[2020-01-28] MEDS: BACITRACIN TOP OINT 1 UD PKG TOP SCH ×2 (10:15→22:00)
--- NOTE | 2020-01-28 10:30 | NUR ---
WOUND CARE NOTE: IN TO SEE PATIENT AT THIS TIME FOR SACRAL WOUND RE-EVALUATION. PATIENT CONTINUES TO REST ON SPECIALTY AIR BED. PATIENT NOW ON TELE FLOOR. HE CONTINUES TO BE VENTILATED BY WAY OF TRACHEOSTOMY. HE IS AWAKE, ALERT, ORIENTED X 3, IN NO STATED PAIN. PATIENT CONTINUES TO BE WEAK, CURRENT ABBY SCORE IS 17. PATIENT IS WORKING WITH PT, STARTING TO AMBULATE. ENCOURAGED PATIENT TO GET UP IN CHAIR FOR HIS MEALS. HIS NUTRITIONAL STATUS IS POOR, AND HIS WOUND HEALING OF HIS SACRUM HAS NOT IMPROVED. WOUND APPEARS TO NOW HAVE FIBRIN SLOUGH IN THE WOUND BED. WILL NOW UTILIZE/PLACE THERAHONEY INTO OPEN WOUNDBED AREAS TO AID WITH AUTOLYTIC DEBRIDEMENT. ADVISED BEDSIDE NURSE THAT PATIENT SHOULD BE SIDE TO SIDE POSITIONING WHEN IN BED. RECOMMEND: DAILY/PRN DRESSING CHANGE WITH THERAHONEY AND OPTIFOAM GENTLE SACRAL DRESSING TO SACRAL ULCER, UP IN CHAIR FOR MEALS, SIDE TO SIDE POSITIONING, CONTINUATION WITH ALL OTHER WOUND CARE ORDERS PREVIOUSLY PRESCRIBED BY MD. WOUND CARE TEAM WILL CONTINUE TO MONITOR. Addendum: 01/28/20 at 1758 by Denisha Thornton RN Amended: Links added.
[2020-01-28] MEDS: FLUCONAZOLE 200MG/100ML 100 ML IV SCH ×2 (10:55→12:02)
--- NOTE | 2020-01-28 12:03 | NUR ---
Nutrition Follow-up Notes Wt.: 82.2 kg Pt`s awake with guards at bedside. pt is currently on full liq diet tolerating well per RN with inadequate PO of 50% x 5 per RN doc Est. Needs BW 81 [id number] kcals (20-25 kcal/kgBW). 101-126 gms/day (1.2-1.5 gm/kgBW low prealb). Will continue to monitor pertinent labs and reassess nutrient need prn. Labs: no new labs today 01/24: GLU 115 H, A1c 10.8 H, ALB 1.6 L Skin: Irwin scale 16 mod risk, pt with pressure ulcers per neon sign worker. refer to WC notes for details GI: Pt had 1 BM noted today per neon sign worker. PES: Altered nutrition related lab values r/t current medical condition aeb hyponatremia, elevated RFTs, hyperglycemia, hypocalcemia, elevated bilirubin severe hypoalbuminemia Will continue to monitor PO intake, skin status, pertinent labs and weight trend. F/u in 3-5 days. Rec.: 1.) advance diet as medically feasible. 2) consider ensure Enlive 1 carton bid if PO continues to be low. 3) Continue current plan of care.
[2020-01-28 13:00] VITALS: BP 118/79
--- NOTE | 2020-01-28 13:30 | NUR ---
RT NOTE: TRACH CARE DONE AT THIS TIME. PT IS ON 10 LPM AND 30% COOL AEROSOL WITH TRACH COLLAR. SUCTIONED PT PRIOR HAD LARGE AMOUNT OF THICK PALE YELLOW SECRETIONS. NO REDNESS OR BREAK DOWN NOTED, INNER CANULA CLEANED, TRACHEAL SPONGES REPLACED. NO S/S OF SOB. WILL CONTINUE TO MONITOR PT.
[2020-01-28] MEDS: MICAFUNGIN SODIUM 100 MG in SODIUM CHL 0.9% 100 ML IV SCH (13:36)
[2020-01-28 16:43] VITALS: BP 117/81
--- NOTE | 2020-01-28 19:20 | NUR ---
Opening Shift Note Assumed care of patient. Pt is awake, alert, and oriented X 3. No S/S of respiratory distress; respirations are regular and non-labored. Air bed in lowest position, brakes locked, side rails X 2 up, call light within reach. Tele box matches to the monitor, leads are correctly placed. IJ is asymptomatic and patent. Patient has a trach, getting O2 via collar at 10 lpm, and unable to speak. Goldstein is patent and on bed frame. Two correctional officers at bedside. POC discussed with a patient. Pt was instructed to call for assistance PRN. Will continue to monitor for changes Q1hr and PRN.
[2020-01-28] MEDS: LORazepam 2MG/ML-1ML VIAL IV PRN (20:43)
[2020-01-28] MEDS: ACETAMINOPHEN 325 MG TAB PO PRN (20:44)
[2020-01-28 22:00] VITALS: BP 112/77
--- NOTE | 2020-01-28 22:17 | NUR ---
Bernadine Miller because patient is reporting pain 10 out of 10 in his generalized abdominal region. Pain has been going on intermittently for the past two days but has suddenly worsened. He states it is not nausea, as promethazine was given earlier for that. He is concerned something is wrong and wants to know if he can have pain medication and possibly some sort of test like an ultrasound. Vitals: temp: 98.1, HR: 113, RR; 20, BP: 122/77 with MAP of 89, O2 sat: 97% on 10 l/min trach collar. Addendum: 01/28/20 at 2340 by BYRON POZO RN Patient is grimacing and withdrawing from touch. He appears anxious and uncomfortable despite Ativan administration.
--- NOTE | 2020-01-28 23:39 | NUR ---
Called MD Miller's paging system and notified them that this was my second call. Paging service spoke to MD Miller, who stated he would call back in a few moments. Awaiting call back.
--- NOTE | 2020-01-29 00:02 | NUR ---
Patient appears withdrawn and passive. Still reports pain 10 out of 10 in generalized abdomen. Vitals taken:BP: 103/80, temp: 99.2, O2 sat: 98% on 10 l/min trach collar, RR: 18, Pulse: 107. Awaiting call back from physician.
[2020-01-29] MEDS: InsuLIN REG 1unit/0.01ml Soln (100units/ml) SC SCH ×5 (00:07→23:37)
[2020-01-29] MEDS: ACCU-CHEK COMFORT CURVE STRIP VI SCH ×5 (00:07→23:16)
[2020-01-29] MEDS: LORazepam 2MG/ML-1ML VIAL IV PRN (01:02)
--- NOTE | 2020-01-29 01:14 | NUR ---
Spoke to MD Stapleton and notified him of patient's pain in abdomen. Orders received: 1) Dilaudid 0.5 mg IV once, 2) CBC in AM, 3) CMP in AM, 4) Lipase in AM.
[2020-01-29] MEDS ORDERED: HYDROmorphone HCL 2 MG/ML VL IV ONE (01:15)
[2020-01-29] MEDS: PROMETHAZINE HCL 25 MG/ML 1ML IV PRN ×3 (04:08→14:08)
[2020-01-29 05:00] VITALS: BP 106/76
[2020-01-29] MEDS: METOCLOPRAMIDE HCL 5MG/ml INJ 2ml VIAL IV SCH ×3 (05:42→21:15)
[2020-01-29] MEDS: INSULIN LANTUS (GLARGINE) 1 /0.01ml (100units/ml) SC SCH ×2 (05:44→17:52)
[2020-01-29 06:34] LABS: Basophils # (auto) 0.1 10 ^3/uL (0-0.2); Eosinophils # (auto) 0.3 10 ^3/uL (0-0.8); Hemoglobin 11.8 g/dL (13.5-17.5); Lymphocytes # (auto) 1.8 10 ^3/uL (0.4-5.4); Mean Corpuscular Hemoglobin 27.7 pg (28.0-32.0); Monocytes # (auto) 0.4 10 ^3/uL (0-1.3)
[2020-01-29 06:38] LABS: Basophils % (auto) 0.8 % (0.0-2.0); Hematocrit 36.4 % (41.0-53.0); Lymphocytes % (auto) 13.6 % (10.0-50.0); Mean Corpuscular Hgb Conc. 32.4 g/dL (32.0-36.0); Mean Corpuscular Volume 85.6 fL (80.0-100.0); Monocytes % (auto) 2.9 % (0.0-12.0); Neutrophils # (auto) 10.8 10 ^3/uL (1.6-8.6); Neutrophils % (auto) 80.7 % (37.0-80.0); Platelet Count (auto) 718 10^3/uL (140-450); Red Blood Cells 4.25 10^6/uL (4.5-5.90); White Blood Cell 13.4 10^3/uL (4.4-10.8)
[2020-01-29 06:44] LABS: Red Cell Distribution Width 20.9 % (11.8-14.3)
--- NOTE | 2020-01-29 06:45 | NUR ---
Respiratory note: PT IS SLEEPING COMFORTABLY ON 30% COOL MIST AEROSOL VIA TRACH COLLAR. WILL COMPLETE TRACH CARE AT A LATER TIME WHEN PT IS AWAKE. WATER LEVEL IS ADEQUATE. GUARDS AT BEDSIDE. NO SIGNS OR SYMPTOMS OF RESPIRATORY DISTRESS NOTED AT THIS TIME.
[2020-01-29 06:55] LABS: Calcium 8.6 mg/dL (8.5-10.1); Potassium 3.8 mmol/L (3.5-5.1)
[2020-01-29 06:58] LABS: BUN/Creatinine Ratio 13.3; Bilirubin, Total 0.5 mg/dL (0.2-1.0); Total Protein 7.4 g/dL (6.4-8.2)
--- NOTE | 2020-01-29 07:35 | NUR ---
Opening Shift Note Assumed care of patient, resting with eyes closed. No S/S of distress/SOB, no pain noted. Patient on 10L O2 via trach collar. Bed locked in lowest position, side rails up x2, call light within reach. Guards at bedside. Will continue to monitor for changes Q1hr and PRN
[2020-01-29 08:00] VITALS: BP 119/88
[2020-01-29] MEDS: cefTRIAXone 1GM/50ML D5W 50 ML IV SCH (09:30)
[2020-01-29] MEDS: ADVAIR IN SCH ×2 (10:00→21:15)
--- NOTE | 2020-01-29 10:24 | NUR ---
PT Patient requested to comeback after lunch with c/o nausea and vomiting. MICHAEL Chua was notified of patient's request. Addendum: 01/29/20 at 1025 by SHAYAN BRADY PTT Amended: Links added.
[2020-01-29] MEDS: FLUCONAZOLE 200MG/100ML 100 ML IV SCH ×2 (10:39→11:00)
[2020-01-29] MEDS: BACITRACIN TOP OINT 1 UD PKG TOP SCH ×2 (10:41→21:15)
[2020-01-29] MEDS: MONTELUKAST SODIUM 10 MG TAB PO SCH (10:41)
[2020-01-29] MEDS: LORATADINE 10 MG TAB PO SCH (10:41)
[2020-01-29] MEDS: FLUTICASONE PROP NASAL SPR 0.05 % (50MCG) 16GM EACHNOSTRI SCH (10:41)
[2020-01-29] MEDS: DIGOXIN (250MCG/ML) 2 ML AMPULE IV SCH (10:45)
[2020-01-29 12:00] VITALS: BP 119/84
--- NOTE | 2020-01-29 12:00 | NUR ---
TRACH CARE AND SUCTION DONE. NO DISTRESS NOTED. FULL LINEN CHANGE AND SPONGE BATH GIVEN. WILL CONTINUE TO MONITOR Q1HR AND PRN.
--- NOTE | 2020-01-29 14:48 | NUR ---
PT Patient was asleep during afternoon PT visit. Addendum: 01/29/20 at 1449 by SHAYAN BRADY PTT Amended: Links added.
--- NOTE | 2020-01-29 15:41 | NUR ---
Respiratory note: TRACH CARE PERFORMED AT THIS TIME, WITHOUT INCIDENT. EXTRA TRACH AT BEDSIDE. PT IS ON COOL MIST TRACH COLLAR. WATER LEVEL IS ADEQUATE. NO RESPIRATORY DISTRESS NOTED. PT WENT BACK TO SLEEP. GUARDS AT BEDSIDE.
--- NOTE | 2020-01-29 16:00 | NUR ---
Patient rounds Patient resting with eyes closed, no s/s of distress or sob. Will continue to monitor q1hr and PRN.
[2020-01-29 16:58] VITALS: BP 118/80
[2020-01-29 18:34] VITALS: BP 118/80
--- NOTE | 2020-01-29 18:54 | NUR ---
Patient rounds Patient sitting up in bed eating dinner, no s/s of distress or sob. Will continue to monitor q1hr and PRN.
--- NOTE | 2020-01-29 19:23 | NUR ---
Opening Shift Note Assumed care of patient, awake and alert x 4. No S/S of distress/SOB, Patient receiving 10 l/min via trach collar. Bed is in lowest position and locked. Call light within reach. Board updated. Tele box number matches monitor and leads are in correct placement. 2 guards at bedside. Patient secured to bed by bilateral ankles and left wrist. Instructed on POC and to call for assist PRN, will continue to monitor for changes Q1hr and PRN.
--- NOTE | 2020-01-29 21:19 | NUR ---
Felipe Miller because patient is reporting pain 9 out of 10 in his medial upper abdomen and lower abdomen. Patient states it is the same pain as last night. Patient's pain was received by one time order of Dilaudid 0.5 mg IV last night through today but pain has returned quite suddenly after he ate dinner. Bowel sounds are present and active. Patient is visibly perspiring and is uncomfortable. Vitals: HR: 106, RR: 20, O2: Sat: 97% on 10 l/min trach collar, BP: 111/63, temp: 99.0
[2020-01-29 22:00] VITALS: BP 111/68
--- NOTE | 2020-01-29 22:59 | NUR ---
Spoke to MD Miller and notified him of patient's pain. Orders received: 1) Protonix 40 mg IV daily with first dose to be given now, 2) [place] 10/325 mg PO q 4 hrs PRN severe pain. Orders repeated, verified, and placed.
--- NOTE | 2020-01-29 23:02 | NUR ---
Respiratory note: TRACH CARE DONE AT THIS TIME WITHOUT INCIDENCE. CHANGED GAUZE PADS, CLEANED INNER CANNULA AND AROUND TRACH, NO BREAKDOWN NOTED. TRACH SITE OOZING PALE YELLOW SECRETIONS. PT DENIES NEED FOR SUCTIONING. DRAINED WATER FROM DRAINAGE BAG. CHANGED OUT WATER TO COOL AEROSOL. SPARE TRACH BEDSIDE, EXTRA COOL AEROSOL WATER AND TRACH CARE KIT PLACED AT BEDSIDE. NO DISTRESS NOTED, PT SLEEPING COMFORTABLY. NO PRN BREATHING TX GIVEN/INDICATED. PT REMAINS ON CONT. PULSE OX MONITOR, GUARDS AT BEDSIDE.
[2020-01-29] MEDS: PANTOPRAZOLE 40 MG/10 ML VIAL INJ IV SCH (23:16)
[2020-01-29] MEDS: HYDROcodone-ACET 10/325MG TAB PO PRN (23:16)
[2020-01-30 05:00] VITALS: BP 119/74
[2020-01-30] MEDS: METOCLOPRAMIDE HCL 5MG/ml INJ 2ml VIAL IV SCH ×3 (05:36→22:38)
[2020-01-30] MEDS: ACCU-CHEK COMFORT CURVE STRIP VI SCH ×3 (05:37→17:35)
[2020-01-30] MEDS: InsuLIN REG 1unit/0.01ml Soln (100units/ml) SC SCH ×3 (05:54→17:35)
[2020-01-30] MEDS: INSULIN LANTUS (GLARGINE) 1 /0.01ml (100units/ml) SC SCH ×2 (05:54→17:35)
--- NOTE | 2020-01-30 06:02 | NUR ---
Performed sterile dressing change to right IJ. Masks worn by nurse, patient, and guards. Patient tolerated well.
[2020-01-30] MEDS: PROMETHAZINE HCL 25 MG/ML 1ML IV PRN ×2 (06:16→19:24)
[2020-01-30 08:00] VITALS: BP 115/75
[2020-01-30] MEDS: BACITRACIN TOP OINT 1 UD PKG TOP SCH ×2 (09:24→22:38)
[2020-01-30] MEDS: PANTOPRAZOLE 40 MG/10 ML VIAL INJ IV SCH (09:24)
[2020-01-30] MEDS: cefTRIAXone 1GM/50ML D5W 50 ML IV SCH (09:24)
[2020-01-30] MEDS: MONTELUKAST SODIUM 10 MG TAB PO SCH (09:25)
[2020-01-30] MEDS: LORATADINE 10 MG TAB PO SCH (09:25)
[2020-01-30] MEDS: FLUTICASONE PROP NASAL SPR 0.05 % (50MCG) 16GM EACHNOSTRI SCH (09:26)
[2020-01-30] MEDS: FLUCONAZOLE 200MG/100ML 100 ML IV SCH ×2 (09:32→11:18)
[2020-01-30] MEDS: ADVAIR IN SCH ×2 (10:00→22:00)
[2020-01-30] MEDS: HYDROcodone-ACET 10/325MG TAB PO PRN (11:45)
[2020-01-30 12:00] VITALS: BP 109/73
[2020-01-30 16:57] VITALS: BP 122/67
--- NOTE | 2020-01-30 19:19 | NUR ---
Opening Shift Note Assumed care of patient, awake and alert. No S/S of distress/SOB or pain. Instructed on POC and to call for assist PRN, will continue to monitor for changes Q1hr and PRN. Trach colar on at 10 liters. O2 saturation at 98%.
--- NOTE | 2020-01-30 21:30 | NUR ---
RT NOTE: TRACH CARE DONE. PT ON 8LPM FIO2 .30 COOL AEROSOL WITH TRACH COLLAR. NO REDNESS OR BREAK DOWN NOTED. INNER CANULA CLEANED. TRACHEAL SPONGES REPLACED. PT REFUSED SUCTIONING AT THIS TIME. PT IN NO DISTRESS. WILL CONTINUE TO MONITOR PT.
[2020-01-30 22:00] VITALS: BP 116/75
[2020-01-31] MEDS: ACCU-CHEK COMFORT CURVE STRIP VI SCH ×4 (00:13→18:10)
[2020-01-31 05:00] VITALS: BP 127/76
--- NOTE | 2020-01-31 05:00 | NUR ---
Wound care done on sacrum. Patient tolerated well.
[2020-01-31] MEDS: METOCLOPRAMIDE HCL 5MG/ml INJ 2ml VIAL IV SCH ×3 (05:39→21:19)
[2020-01-31] MEDS: INSULIN LANTUS (GLARGINE) 1 /0.01ml (100units/ml) SC SCH ×2 (05:40→18:10)
[2020-01-31] MEDS: InsuLIN REG 1unit/0.01ml Soln (100units/ml) SC SCH ×4 (05:40→18:09)
--- NOTE | 2020-01-31 06:21 | NUR ---
PT ASSESSED FOR PRN HHN TX. PT IS ON 30% COOL MIST AEROSOL VIA TRACH MASK. NO S/S OF RESPIRATORY DISTRESS. PT CONNECTED TO BEDSIDE PULSE OX. SPO2 98%, HR 97, RR 21. PT AWAKE AND ALERT. PT AWARE TO HAVE RT PAGED IF TX INDICATED, WILL CONTINUE TO MONITOR.
--- NOTE | 2020-01-31 07:10 | NUR ---
Endorsed care to day shift RN.
[2020-01-31 08:00] VITALS: BP 118/78
[2020-01-31] MEDS: PROMETHAZINE HCL 25 MG/ML 1ML IV PRN ×2 (08:19→18:52)
[2020-01-31] MEDS: cefTRIAXone 1GM/50ML D5W 50 ML IV SCH (08:20)
[2020-01-31] MEDS: ADVAIR IN SCH ×2 (10:00→21:19)
[2020-01-31] MEDS: BACITRACIN TOP OINT 1 UD PKG TOP SCH ×2 (10:09→21:19)
[2020-01-31] MEDS: FLUCONAZOLE 200MG/100ML 100 ML IV SCH ×2 (10:09→11:31)
[2020-01-31] MEDS: FLUTICASONE PROP NASAL SPR 0.05 % (50MCG) 16GM EACHNOSTRI SCH (10:10)
[2020-01-31] MEDS: PANTOPRAZOLE 40 MG/10 ML VIAL INJ IV SCH (10:10)
[2020-01-31] MEDS: LORATADINE 10 MG TAB PO SCH (10:10)
[2020-01-31] MEDS: MONTELUKAST SODIUM 10 MG TAB PO SCH (10:10)
[2020-01-31] MEDS: DIGOXIN (250MCG/ML) 2 ML AMPULE IV SCH (10:11)
[2020-01-31 12:00] VITALS: BP 117/79
[2020-01-31] MEDS: HYDROcodone-ACET 10/325MG TAB PO PRN ×2 (12:29→21:47)
--- NOTE | 2020-01-31 14:45 | NUR ---
TRACH CARE DONE AT THIS TIME USING STERILE TECHNIQUE WITHOUT INCIDENT. PT HAS 8.[address] AND SECURED WITH TRACH TIE. TRACH SITE AND TIE ARE CLEAN. INNER CANNULA CLEANED WITH STERILE WATER. CLEANED AROUND PHLANGE WITH PEROXIDE/ STERILE WATER MIXTURE. DEEP TRACHEAL SUCTIONED X2 FOR COPIOUS THICK PALE GREEN RETURN. PT ON 30% COOL MIST AEROSOL. AEROSOL WATER CHANGED AT THIS TIME. DRAINAGE BAG EMPTIED AT THIS TIME. NO S/S OF RESPIRATORY DISTRESS. PHYSICAL THERAPY AT BEDSIDE FOR PT CARE.
--- NOTE | 2020-01-31 15:41 | NUR ---
Nutrition Follow-up Notes Wt.: 79.0 kg Pt`s awake with guards at bedside. pt is currently on mechanical soft diet tolerating well, with improved but inadequate PO intake aeb ave 46% x 6 meals per RN doc. Pt stated he is not eating more because he is not hungry. Encouraged pt to increase his PO intake to continue to regain his strength. Pt expressed understanding. Will continue to closely monitor pertinent labs, PO intake and skin status prn. Will followup in 3-5 days Est. Needs BW 81 [id number] kcals (20-25 kcal/kgBW). 101-126 gms/day (1.2-1.5 gm/kgBW low prealb). Will continue to monitor pertinent labs and reassess nutrient need prn. Labs: A1c 10.8 H Skin: Irwin scale 15 mod risk, pt with pressure ulcers per concrete placement equipment operator. refer to WC notes for details GI: Pt had 1 BM noted on 01/26 per concrete placement equipment operator. PES: Altered nutrition related lab values r/t current medical condition aeb hyponatremia, elevated RFTs, hyperglycemia, hypocalcemia, elevated bilirubin severe hypoalbuminemia Will continue to monitor PO intake, skin status, pertinent labs and weight trend. F/u in 3-5 days. Rec.: 1.) advance diet as medically feasible. 2) consider ensure [place] 1 carton bid if PO continues to be low. 3) Continue current plan of care.
[2020-01-31 16:55] VITALS: BP 118/71
--- NOTE | 2020-01-31 19:18 | NUR ---
Opening Shift Note Assumed care of patient, awake and alert. No S/S of distress/SOB or pain. Instructed on POC and to call for assist PRN, will continue to monitor for changes Q1hr and PRN. Trach cannula in place with collar on at 10L. O2 saturation at 98%.
--- NOTE | 2020-01-31 20:30 | NUR ---
Respiratory note: PT ASSESSED FOR PRN MED NEB TS. HR 98, RR 18, SPO2 99% ON 5L/35%. NO S/S OF ANY RESPIRATORY DISTRESS NOTED. ADVISED PT TO CALL IF TX, IS NEEDED. RT NAME AND PAGER NUMBER WRITTEN ON PT'S BOARD.
[2020-01-31 22:36] VITALS: BP 106/73
[2020-02-01] MEDS: ACCU-CHEK COMFORT CURVE STRIP VI SCH ×5 (01:16→23:41)
[2020-02-01] MEDS: PROMETHAZINE HCL 25 MG/ML 1ML IV PRN ×3 (01:55→12:46)
[2020-02-01] MEDS: ALBUTEROL SULF 2.5 MG/0.5ML(0.5%) NEB SOLN NEB PRN (02:08)
--- NOTE | 2020-02-01 02:08 | NUR ---
Respiratory note: TRACH CARE DONE. PT ON 8LPM FIO2 35% COOL AEROSOL WITH TRACH COLLAR. NO REDNESS OR BREAK DOWN NOTED. INNER CANULA CLEANED. TRACHEAL SPONGES REPLACED. IN-LINE MED NEB TX GIVEN AT THIS TIME. PT TOLERATED WELL. SXN FOR SMALL BLOOD TINGED RETURN. PT IN NO DISTRESS. CONT. PULSOX AND EXTRA TRACH SET AT BEDSIDE. WILL CONTINUE TO MONITOR PT.
[2020-02-01 05:16] VITALS: BP 119/81
--- NOTE | 2020-02-01 05:16 | NUR ---
Wound care done on sacrum. Patient tolerated well.
[2020-02-01] MEDS: InsuLIN REG 1unit/0.01ml Soln (100units/ml) SC SCH ×5 (05:23→23:42)
[2020-02-01] MEDS: METOCLOPRAMIDE HCL 5MG/ml INJ 2ml VIAL IV SCH ×3 (05:23→22:06)
[2020-02-01] MEDS: INSULIN LANTUS (GLARGINE) 1 /0.01ml (100units/ml) SC SCH ×2 (05:24→17:46)
--- NOTE | 2020-02-01 07:41 | NUR ---
Endorsed care to day shift RN. Patient in bed awake with no signs of distress. Hand cuffs on left wrist and bilateral ankles. 2 guards at bedside.
--- NOTE | 2020-02-01 08:00 | NUR ---
Received pt resting in bed, call light within reach, pt denies any pain at this time, pt reports nausea, will medicate pt a order.
[2020-02-01] MEDS: cefTRIAXone 1GM/50ML D5W 50 ML IV SCH (08:25)
[2020-02-01 09:00] VITALS: BP 122/76
[2020-02-01] MEDS: MONTELUKAST SODIUM 10 MG TAB PO SCH (10:00)
[2020-02-01] MEDS: FLUCONAZOLE 200MG/100ML 100 ML IV SCH ×3 (10:00→12:46)
[2020-02-01] MEDS: ADVAIR IN SCH ×2 (10:00→22:00)
[2020-02-01] MEDS: LORATADINE 10 MG TAB PO SCH (10:00)
--- NOTE | 2020-02-01 10:35 | NUR ---
Pt refused to take the oral schedule medications as order due to nausea, will continue to monitor pt, and will report to doctor.
[2020-02-01] MEDS: PANTOPRAZOLE 40 MG/10 ML VIAL INJ IV SCH (10:51)
[2020-02-01] MEDS: FLUTICASONE PROP NASAL SPR 0.05 % (50MCG) 16GM EACHNOSTRI SCH (12:33)
[2020-02-01] MEDS: BACITRACIN TOP OINT 1 UD PKG TOP SCH ×2 (12:46→22:07)
[2020-02-01 13:00] VITALS: BP 117/76
--- NOTE | 2020-02-01 13:00 | NUR ---
Dr. Miller at bed side to see pt, doctor informed that pt's current antinausea medication is not working pt has been having nausea and vomiting. Orders received to order Zofran 4 mg.
[2020-02-01] MEDS ORDERED: ONDANSETRON HCL 4 MG/2 ML VIAL IV PRN (13:15)
--- NOTE | 2020-02-01 14:00 | NUR ---
Pt reported to have been able to eat about 25% of his lunch.
--- NOTE | 2020-02-01 16:02 | NUR ---
Pt got out of bed with PT, pt ambulated from bed to outside of pt's room door and back to bed, pt tolerated well, pt back in bed, call light with in reach, will continue to monitor pt.
[2020-02-01 17:00] VITALS: BP 109/76
[2020-02-01 17:29] VITALS: BP 117/76
--- NOTE | 2020-02-01 19:11 | NUR ---
RT NOTE P WAS SEEN BY RT FOR PRN HHN TX. PT STATES NO TREATMENT IS NEEDED AT THIS TIME. PT IS ON BEDSIDE POX. TRACH COLLAR IN PLACE WITH 8L/30% COOL AEROSOL. WATER LEVEL IS ADEQUATE. PT STATES NO SUCTION IS NEEDED AT THIS TIME EITHER. SPARE TRACH AT BEDSIDE. PT AWARE THAT RT WILL RETURN Addendum: 02/01/20 at 1947 by Nancy Blake RT Amended: Links added.
--- NOTE | 2020-02-01 19:50 | NUR ---
Opening Shift Note Assumed care of patient. Pt is awake, alert, and oriented. No S/S of pain or respiratory distress; respirations are regular and non-labored. Bed in lowest position, brakes locked, side rails X2 up, call light within reach. fall precautions in place.IJ is asymptomatic and patent. Patient has a trach and getting O2 via collar at 8 lpm. Goldstein is patent and draining. Optifoam in place to sacrum. POC discussed with a patient. Pt was instructed to call for assistance PRN. Will continue to monitor for changes Q1hr and PRN.
[2020-02-01 22:00] VITALS: BP 108/74
--- NOTE | 2020-02-01 22:00 | NUR ---
RT NOTE PT WAS SEEN BY RT FOR TRACH CARE. TRACH CARE TOLERATED WELL. INNER CANNULA CLEANED, STOMA SITE CLEANED, DRESSING AND TRACH TIES CHANGED. COOL AEROSOL WATER WAS CHANGED WITHOUT INCIDENT. FIO2 AT 30% AND LITER FLOW AT 8. SPARE TRACH AND SUPPLIES AT BEDSIDE. NEW TRACH COLLAR PROVIDED. PT DENIES SUCTION AT THIS TIME AND STATES NO PRN TX NEEDED. BEDSIDE POX ATTACHED. HR 98, RR 18, POX 98% CONT ORDERED Addendum: 02/01/20 at 2225 by Nancy Blake RT Amended: Links added.
--- NOTE | 2020-02-01 22:10 | NUR ---
pain 03/22 headache patient medicated per protocol. Addendum: 02/01/20 at 2251 by JOSE ACUNA RN RN correction time 2209 patient stated pain . 2211 patient medicated per protocol
[2020-02-01] MEDS: HYDROcodone-ACET 10/325MG TAB PO PRN (22:12)
--- NOTE | 2020-02-01 23:12 | NUR ---
pain 2/10 tolerable
[2020-02-02 05:00] VITALS: BP 123/85
[2020-02-02] MEDS: METOCLOPRAMIDE HCL 5MG/ml INJ 2ml VIAL IV SCH ×3 (05:29→21:55)
[2020-02-02] MEDS: InsuLIN REG 1unit/0.01ml Soln (100units/ml) SC SCH ×4 (05:29→23:34)
[2020-02-02] MEDS: ACCU-CHEK COMFORT CURVE STRIP VI SCH ×4 (05:30→23:32)
[2020-02-02] MEDS: INSULIN LANTUS (GLARGINE) 1 /0.01ml (100units/ml) SC SCH ×2 (05:35→18:03)
--- NOTE | 2020-02-02 06:41 | NUR ---
patient rounds patient is in bed watching tv. patient denies sob distress or pain. trach collar at 8L. meng catheter bag patent and draining light fartun urine. RIJ is patent. Dressing to RIJ is clean and intact. patient Optifoam to sacrum in place. guards at bedside. fall precautions in place
--- NOTE | 2020-02-02 06:50 | NUR ---
Respiratory note: PT AWAKE, AND ALERT. NO RESPIRATORY DISTRESS NOTED. SPO2 100% ON 8L 30% FIO2 VIA TRACH COLLAR, HR 97, RR 17, BS CLEAR/DIMINISHED BILATERALLY. PRN MEDNEB TX NOT INDICATED THIS TIME. PT INFORMED TO PUSH CALL BUTTON IF INCREASED WOB, SOB, OR WHEEZING OCCURS. GUARDS AT BEDSIDE.
--- NOTE | 2020-02-02 07:33 | NUR ---
REPORT GIVEN TO DAYSHIFT RN PATIENT DENIES SOB DISTRESS OR PAIN
--- NOTE | 2020-02-02 07:40 | NUR ---
Opening Shift Note Assumed care of patient, awake and alert, lying on bed with tracheostomy tube on O2 at 8L/min, pt on continuous pulse oximeter. noted pressure ulcer on sacrum covered with optifoam with minimal serous drainage. No S/S of distress/SOB or pain. Instructed on POC and to call for assist PRN, will continue to monitor for changes Q1hr and PRN.
[2020-02-02 08:39] VITALS: BP 126/82
[2020-02-02] MEDS: cefTRIAXone 1GM/50ML D5W 50 ML IV SCH (09:35)
[2020-02-02] MEDS: FLUCONAZOLE 200MG/100ML 100 ML IV SCH ×2 (09:36→11:18)
[2020-02-02] MEDS: FLUTICASONE PROP NASAL SPR 0.05 % (50MCG) 16GM EACHNOSTRI SCH (09:36)
[2020-02-02] MEDS: MONTELUKAST SODIUM 10 MG TAB PO SCH (09:36)
[2020-02-02] MEDS: LORATADINE 10 MG TAB PO SCH (09:36)
[2020-02-02] MEDS: PANTOPRAZOLE 40 MG/10 ML VIAL INJ IV SCH (09:36)
[2020-02-02] MEDS: BACITRACIN TOP OINT 1 UD PKG TOP SCH ×2 (09:37→21:55)
[2020-02-02] MEDS: ADVAIR IN SCH ×2 (09:38→21:50)
[2020-02-02] MEDS: DIGOXIN (250MCG/ML) 2 ML AMPULE IV SCH (09:38)
--- NOTE | 2020-02-02 12:00 | NUR ---
WOUND DRESSING DONE. SACRAL WOUND CLEANSE WITH WOUND CLEANSER, PAT DRY, THERAHONEY AND OPTIFOAM APPLIED.
[2020-02-02 13:00] VITALS: BP 120/79
[2020-02-02 16:48] VITALS: BP 117/77
[2020-02-02] MEDS: HYDROcodone-ACET 10/325MG TAB PO PRN (21:57)
[2020-02-02] MEDS: DOCUSATE ORAL LIQUID 100 MG/10 ML UD GT PRN (21:58)
[2020-02-02 22:00] VITALS: BP 111/76
--- NOTE | 2020-02-02 22:00 | NUR ---
PAIN/CONSTIPATION. PATIENT C/O 05/23 PAIN AND REQUESTING PAIN MEDICATION. ADMINISTERED [place] 10/325MG PO PRESCRIBED. PATIENT TOLERATED WELL WILL CONTINUE TO MONITOR PATIENT. PATIENT HAD NO BM FOR SINCE 01/30/20 ADMINISTERED COLACE PRESCRIBED. PATIENT STATES HE NEEDS MEDICATION TO HELP INCREASE HIS APPETITE SINCE HE HAS NOT EATEN WELL. INFORMED THAT WE HAVE TO ASK DR CASTELLON WHEN HE VISITS PATIENT.
--- NOTE | 2020-02-02 22:27 | NUR ---
WOUND CARE WOUND CARE COMPLETED BELOW TRACH STOMA, PATIENT HAS YELLOW THICK DRAINAGE ON DRESSING. CLEANSED WITH NS GENTLY PAT DRY, WOUND BED IS PINK. BACITRACIN OINTMENT APPLIED AND COVERED WITH OPTIFOAM DRESSING.
--- NOTE | 2020-02-02 23:02 | NUR ---
RECEIVED REPORT FROM MICHAEL LEIGH.
--- NOTE | 2020-02-02 23:02 | NUR ---
GAVE REPORT TO NURSE AMOR TO RESUME CARE OF PATIENT.
--- NOTE | 2020-02-02 23:15 | NUR ---
OPENING SHIFT Assumed care of patient. Pt is awake, alert, and oriented. No S/S of pain or respiratory distress; respirations are regular and non-labored. Bed in lowest position, brakes locked, side rails X2 up, call light within reach. fall precautions in place.iv TO RIGHTIJ is asymptomatic and patent. Patient has a trach and getting O2 via trach collar at 8 lpm.Goldstein is patent and draining. Optifoam in place to sacrum. POC discussed with a patient. Pt was instructed to call for assistance PRN. Will continue to monitor for changes Q1hr and PRN. guard at bedside.
[2020-02-03 04:56] VITALS: BP 126/85
[2020-02-03] MEDS: METOCLOPRAMIDE HCL 5MG/ml INJ 2ml VIAL IV SCH ×3 (05:31→23:40)
[2020-02-03] MEDS: InsuLIN REG 1unit/0.01ml Soln (100units/ml) SC SCH ×4 (05:31→23:30)
[2020-02-03] MEDS: INSULIN LANTUS (GLARGINE) 1 /0.01ml (100units/ml) SC SCH ×2 (05:31→17:38)
[2020-02-03] MEDS: ACCU-CHEK COMFORT CURVE STRIP VI SCH ×4 (05:31→23:40)
--- NOTE | 2020-02-03 06:36 | NUR ---
patient rounds patient is in bed. denies sob, distress or pain. trach collar in place at 8L. Iv to RIJ is patent/asymptomatic. Optifoams clean dry and intact. fall precautions in place. call light within reach. guards at bedside. Addendum: 02/03/20 at 0640 by JOSE ACUNA RN RN meng catheter patent and draining.
--- NOTE | 2020-02-03 07:20 | NUR ---
report given to dayshift rn. patient denies sob distress or pain
[2020-02-03 08:00] VITALS: BP 116/84
[2020-02-03] MEDS: ONDANSETRON HCL 4 MG/2 ML VIAL IV PRN ×3 (08:32→17:41)
[2020-02-03] MEDS: cefTRIAXone 1GM/50ML D5W 50 ML IV SCH (08:32)
[2020-02-03] MEDS: ADVAIR IN SCH ×2 (10:00→22:00)
--- NOTE | 2020-02-03 10:00 | NUR ---
PT REFUSED P.T. BECAUSE OF SHORTNESS OF BREATH.
[2020-02-03] MEDS: FLUTICASONE PROP NASAL SPR 0.05 % (50MCG) 16GM EACHNOSTRI SCH (10:04)
[2020-02-03] MEDS: LORATADINE 10 MG TAB PO SCH (10:05)
[2020-02-03] MEDS: MONTELUKAST SODIUM 10 MG TAB PO SCH (10:05)
[2020-02-03] MEDS: BACITRACIN TOP OINT 1 UD PKG TOP SCH ×2 (10:05→23:40)
[2020-02-03] MEDS: PANTOPRAZOLE 40 MG/10 ML VIAL INJ IV SCH (10:05)
[2020-02-03] MEDS: FLUCONAZOLE 200MG/100ML 100 ML IV SCH ×2 (10:05→11:19)
[2020-02-03] MEDS: ALBUTEROL SULF 2.5 MG/0.5ML(0.5%) NEB SOLN NEB PRN (10:26)
--- NOTE | 2020-02-03 11:10 | NUR ---
WOUND DRESSING DONE. SACRAL WOUND CLEANSED WITH WOUND CLEANSER, PAT DRY, THERAHONEY AND OPTIFOAM APPLIED.
[2020-02-03 12:00] VITALS: BP 116/68
[2020-02-03 16:47] VITALS: BP 117/76
--- NOTE | 2020-02-03 19:30 | NUR ---
Opening Shift Note Assumed care of patient, awake and alert, lying on bed with tracheostomy tube on O2 at 8L/min, pt. on continuous pulse oximeter. Pressure ulcer on sacrum covered with optifoam, noted to be clean, dry, and intact. No S/S of distress/SOB or pain. Instructed on POC and to call for assist PRN, will continue to monitor for changes Q1hr and PRN. Addendum: 02/04/20 at 0207 by DONELL PARIKH RN RN ADDITION: Guards at bedside noted at time of original note.
--- NOTE | 2020-02-03 19:35 | NUR ---
Respiratory note: ASSESSMENT FOR PRN MED NEB TX. HR 97, SPO2 99% ON 8L 35% TRACH COLLAR, RR 20, BS CLEAR/COARSE. PT PRESENTING NO RESPIRATORY DISTRESS, PT REFUSED SUCTIONING. MED NEB TX NOT INDICATED AT THIS TIME. PT AWARE OF PRN MED NEB TXS AND TO HAVE RT PAGED IF NEEDED. GUARDS AT BEDSIDE, WILL CONTINUE TO MONITOR.
--- NOTE | 2020-02-03 20:10 | NUR ---
Dr. Amparo Stapleton at nurse's station. New orders recieved for CBC, CMP, and Digoxin labs tomorrow morning. also ordering chest x-ray for tomorrow AM. All orders read back and verified, will implement as ordered and continue to monitor.
[2020-02-03 22:00] VITALS: BP 112/63
[2020-02-03] MEDS: HYDROcodone-ACET 10/325MG TAB PO PRN (23:40)
[2020-02-04 05:40] VITALS: BP 117/76
[2020-02-04] MEDS: ACCU-CHEK COMFORT CURVE STRIP VI SCH ×3 (05:48→17:59)
[2020-02-04] MEDS: METOCLOPRAMIDE HCL 5MG/ml INJ 2ml VIAL IV SCH ×4 (05:55→22:00)
[2020-02-04] MEDS: INSULIN LANTUS (GLARGINE) 1 /0.01ml (100units/ml) SC SCH ×2 (06:00→18:00)
[2020-02-04] MEDS: InsuLIN REG 1unit/0.01ml Soln (100units/ml) SC SCH ×3 (06:00→18:00)
[2020-02-04 06:09] LABS: Basophils # (auto) 0.1 10 ^3/uL (0-0.2); Eosinophils # (auto) 0.5 10 ^3/uL (0-0.8); Hemoglobin 11.5 g/dL (13.5-17.5); Monocytes # (auto) 0.5 10 ^3/uL (0-1.3)
[2020-02-04 06:11] LABS: Hematocrit 34.5 % (41.0-53.0); Lymphocytes % (auto) 18.7 % (10.0-50.0); Mean Corpuscular Hemoglobin 28.5 pg (28.0-32.0); Mean Corpuscular Hgb Conc. 33.4 g/dL (32.0-36.0); Mean Corpuscular Volume 85.4 fL (80.0-100.0); Monocytes % (auto) 4.6 % (0.0-12.0); Neutrophils # (auto) 7.5 10 ^3/uL (1.6-8.6); Neutrophils % (auto) 70.7 % (37.0-80.0); Platelet Count (auto) 489 10^3/uL (140-450); Red Blood Cells 4.04 10^6/uL (4.5-5.90); White Blood Cell 10.6 10^3/uL (4.4-10.8)
[2020-02-04 06:12] LABS: Red Cell Distribution Width 20.2 % (11.8-14.3)
--- NOTE | 2020-02-04 06:20 | NUR ---
Respiratory note: HR 94, RR 16, SPO2 99% ON 30% COOL MIST TRACH COLLAR. NO SIGNS OR SYMPTOMS OF RESPIRATORY DISTRESS NOTED. PT IS SLEEPING COMFORTABLY. PRN MED NEB TX NOT INDICATED AT THIS TIME.GUARDS AT BEDSIDE.
[2020-02-04 06:28] LABS: Potassium 4.1 mmol/L (3.5-5.1)
[2020-02-04 06:37] LABS: Albumin 2.1 g/dL (3.4-5.0); BUN/Creatinine Ratio 9.7; Bilirubin, Total 0.4 mg/dL (0.2-1.0); Calcium 8.1 mg/dL (8.5-10.1); Total Protein 7.2 g/dL (6.4-8.2)
--- NOTE | 2020-02-04 06:40 | NUR ---
Patient lying in bed, eyes closed, respirations even and unlabored, appears asleep. No s/s of distress. Call light within reach. Guards at bedside. Will endorse care to dayshift RN.
[2020-02-04] MEDS: cefTRIAXone 1GM/50ML D5W 50 ML IV SCH (08:18)
[2020-02-04] MEDS: ONDANSETRON HCL 4 MG/2 ML VIAL IV PRN ×3 (08:19→18:00)
[2020-02-04 08:51] VITALS: BP 121/81
[2020-02-04] MEDS: ADVAIR IN SCH ×2 (10:00→22:00)
[2020-02-04] MEDS: FLUCONAZOLE 200MG/100ML 100 ML IV SCH ×2 (10:17→12:02)
[2020-02-04] MEDS: FLUTICASONE PROP NASAL SPR 0.05 % (50MCG) 16GM EACHNOSTRI SCH (10:17)
[2020-02-04] MEDS: LORATADINE 10 MG TAB PO SCH (10:18)
[2020-02-04] MEDS: BACITRACIN TOP OINT 1 UD PKG TOP SCH ×2 (10:18→22:14)
[2020-02-04] MEDS: MONTELUKAST SODIUM 10 MG TAB PO SCH (10:18)
[2020-02-04] MEDS: PANTOPRAZOLE 40 MG/10 ML VIAL INJ IV SCH (10:18)
--- NOTE | 2020-02-04 11:00 | NUR ---
WOUND CARE NOTE: IN TO SEE PATIENT AT THIS TIME FOR WOUND REEVALUATION. PATIENT'S CURRENT ABBY SCORE IS 16. PATIENT IS NOW ABLE TO SELF TURN/REPOSITION SELF. HE IS AMBULATING WITH PHYSICAL THERAPY. PATIENT CONTINUES TO BE MONITORED BY CERTIFIED PROCEDURAL CODER. HE IS CURRENTLY RESTING ON AIR MATTRESS, CONTINUES TO BE VENTILATED BY WAY OF TRACHEOSTOMY. PATIENT CONTINUES TO HAVE LOW ALBUMIN OF 2.1 CM, AND HAS ISSUES WITH INTERMITTENT NAUSEA. HE IS NOT DRINKING MUCH OF HIS GLUCERNA SHAKES, BUT HIS APPETITE HAS IMPROVED SOMEWHAT. PATIENT EDUCATED ON NEED TO INCREASE PROTEIN, OFFLOAD PRESSURE TO SACRUM BY SIDE TO SIDE POSITIONING WHEN IN BED, CONTINUE TO GET UP IN CHAIR MULTIPLE TIMES DAILY, AND WORK WITH PHYSICAL THERAPY, AMBULATING. PATIENT VERBALIZED UNDERSTANDING. NO CHANGE WITH WOUND STATUS TO SACRAL WOUND AT THIS TIME, WITH WOUND MEASURING 4 X 3 CM. WOUND IS COVERED WITH SLOUGH, PERIWOUND IS DARK RED. LIGHT SEROUS DRAINAGE NOTED. APPLIED THERAHONEY TO OPEN WOUND BED TO HELP WITH AUTOLYTIC DEBRIDEMENT. COVERED WITH OPTIFOAM GENTLE SACRAL DRESSING. RECOMMEND: CONTINUATION WITH ALL WOUND CARE ORDERS PREVIOUSLY PRESCRIBED BY MD. WOUND CARE TEAM WILL CONTINUE TO MONITOR. Addendum: 02/04/20 at 1546 by Denisha Thornton RN Amended: Links added.
[2020-02-04] MEDS: ALBUTEROL SULF 2.5 MG/0.5ML(0.5%) NEB SOLN NEB PRN (11:48)
--- NOTE | 2020-02-04 11:48 | NUR ---
Respiratory note: PRN MED NEB TX GIVEN FOR SOB. TRACH CARE PERFORMED AT THIS TIME. SUCTIONED MODERATE, SEMI THICK, YELLOW SECRETIONS. GUARDS AT BEDSIDE. PT APPEARS COMFORTABLE AND SAYS HIS BREATHING FEELS BETTER. EXTRA TRACH AND OBTURATOR AVAILABLE AT BEDSIDE.
[2020-02-04 13:00] VITALS: BP 103/80
--- NOTE | 2020-02-04 14:10 | NUR ---
DR Margo HUMPHREYS BEDSIDE WITH PATIENT DISCUSSING PLAN OF CARE. RECEIVED CLARIFICATION THAT PATIENT'S DIGOXIN IS M-- & WEDNESDAY. NOTIFIED MARSHA IN PHARMACY. PER MARSHA, NO DOSE TO BE GIVEN TODAY DUE TO TIME OF DAY AND DOSE TO BE GIVEN TOMORROW.
--- NOTE | 2020-02-04 14:20 | NUR ---
Nutrition Follow-up Notes Wt.: 78.5 kg Pt is currently on mechanical soft diet tolerating well, with an improved good appetite aeb ave 88% x 4 meals per RN doc. Pt with some nausea, no other noted distress. Will continue to closely monitor pertinent labs, PO intake and skin status prn. Will followup in 3-5 days Est. Needs BW 81 [id number] kcals (20-25 kcal/kgBW). 101-126 gms/day (1.2-1.5 gm/kgBW low prealb). Will continue to monitor pertinent labs and reassess nutrient need prn. 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 refer to notes for details GI: Pt last BM noted on 02/01 per supercharger mechanic. PES: Altered nutrition related lab values r/t current medical condition aeb hyponatremia, elevated RFTs, hyperglycemia, hypocalcemia, elevated bilirubin severe hypoalbuminemia Will continue to monitor PO intake, skin status, pertinent labs and weight trend. F/u in 3-5 days. Rec.: 1.) advance diet as medically feasible. 2) consider Glucerna Shake 1 carton bid if PO continues to be low. 3) Continue current plan of care.
--- NOTE | 2020-02-04 16:30 | NUR ---
DR CASTELLON BEDSIDE WITH PATIENT
[2020-02-04 17:00] VITALS: BP 114/66
[2020-02-04 17:58] VITALS: BP 103/80
[2020-02-04] MEDS: Glucerna Carbsteady SHAKE Vanilla 8oz PO SCH (18:00)
[2020-02-04] MEDS: LACTULOSE 20Gm/30ML SOLN PO SCH (18:59)
--- NOTE | 2020-02-04 19:30 | NUR ---
Opening Shift Note Assumed care of patient, awake and alert, lying on bed with tracheostomy tube on O2 at 8L/min, pt. on continuous pulse oximeter. Pressure ulcer on sacrum covered with optifoam, noted to be clean, dry, and intact. Guards at bedside. No S/S of distress/SOB or pain. Instructed on POC and to call for assist PRN, will continue to monitor for changes Q1hr and PRN.
[2020-02-04 22:00] VITALS: BP 105/73
[2020-02-04] MEDS: HYDROcodone-ACET 10/325MG TAB PO PRN (22:15)
[2020-02-05] MEDS: ACCU-CHEK COMFORT CURVE STRIP VI SCH ×4 (00:18→17:25)
--- NOTE | 2020-02-05 05:30 | NUR ---
One episode of 100 ml emesis with digested food particles noted, will administer Zofran as ordered (see emar) and continue to monitor patient.
[2020-02-05] MEDS: ONDANSETRON HCL 4 MG/2 ML VIAL IV PRN ×3 (05:36→20:06)
[2020-02-05 05:43] VITALS: BP 121/81
[2020-02-05] MEDS: InsuLIN REG 1unit/0.01ml Soln (100units/ml) SC SCH ×4 (06:00→17:25)
[2020-02-05] MEDS: METOCLOPRAMIDE HCL 5MG/ml INJ 2ml VIAL IV SCH ×3 (06:00→21:51)
[2020-02-05] MEDS: INSULIN LANTUS (GLARGINE) 1 /0.01ml (100units/ml) SC SCH ×2 (06:29→17:46)
[2020-02-05] MEDS: Glucerna Carbsteady SHAKE Vanilla 8oz PO SCH ×2 (08:08→17:26)
[2020-02-05 08:43] VITALS: BP 132/95
[2020-02-05] MEDS: cefTRIAXone 1GM/50ML D5W 50 ML IV SCH (09:30)
[2020-02-05] MEDS: ADVAIR IN SCH ×2 (10:00→21:51)
[2020-02-05] MEDS ORDERED: DIGOXIN (250MCG/ML) 2 ML AMPULE IV SCH (10:00)
[2020-02-05] MEDS: FLUTICASONE PROP NASAL SPR 0.05 % (50MCG) 16GM EACHNOSTRI SCH (10:35)
[2020-02-05] MEDS: PANTOPRAZOLE 40 MG/10 ML VIAL INJ IV SCH (10:36)
[2020-02-05] MEDS: FLUCONAZOLE 200MG/100ML 100 ML IV SCH ×2 (10:36→11:26)
[2020-02-05] MEDS: DIGOXIN (250MCG/ML) 2 ML AMPULE IV SCH (10:36)
[2020-02-05] MEDS: LACTULOSE 20Gm/30ML SOLN PO SCH ×2 (10:36→21:51)
[2020-02-05] MEDS: MONTELUKAST SODIUM 10 MG TAB PO SCH (10:37)
[2020-02-05] MEDS: LORATADINE 10 MG TAB PO SCH (10:37)
[2020-02-05] MEDS: BACITRACIN TOP OINT 1 UD PKG TOP SCH ×2 (10:37→21:51)
[2020-02-05 13:00] VITALS: BP 115/76
[2020-02-05 17:01] VITALS: BP 109/75
--- NOTE | 2020-02-05 19:25 | NUR ---
Opening Shift Note Assumed care of patient, awake and alert x4, patient cannot speak and uses white board for communicating, follows commands, nods yes or no to questions or mouths answers. No S/S of distress/SOB or pain. Tracheostomy is in place and connected to 6 L oxygen, O2 saturation is 94%, suction is within reach of patient. Goldstein bag hung below bladder, patent, and draining. IV to the RIJ, dressing is C/D/I and site is asymptomatic. Guards are at bedside for safety. Instructed on POC and to call for assist PRN. Call light is within reach, side rails up x2, bed is in the lowest position, aspiration and fall precautions are in place, will continue to monitor for changes Q1hr and PRN.
--- NOTE | 2020-02-05 20:06 | NUR ---
Patient is complaining of nausea, Zofran administered as ordered, see eMAR, will reassess.
--- NOTE | 2020-02-05 20:36 | NUR ---
Nausea has resolved, will continue to monitor.
[2020-02-05 22:00] VITALS: BP 111/72
--- NOTE | 2020-02-05 22:25 | NUR ---
Respiratory note: PT SEEN AND ASSESSED FOR PRN MED NEB TX AT 2225. TX IS NOT INDICATED AT THIS TIME. TRACH CARE PERFORMED AT THIS TIME WITHOUT INCIDENT. TRACH SITE ASSESSED, NO REDNESS OR BLEEDING NOTED. STOMA SITE CLEANED. TRACH GAUZE REPLACED. INNER CANNULA CLEANED. TRACH IS SECURED WITH PANDA TRACH TIES. EXTRA TRACH AND CLEANING SUPPLIES AT BEDSIDE. HR 90 RR 20 SP02 99% ON COOL AEROSOL TRACH COLLAR 6 LPM 21%.
[2020-02-06] MEDS: ACCU-CHEK COMFORT CURVE STRIP VI SCH ×4 (00:07→18:24)
[2020-02-06 05:46] VITALS: BP 103/71
[2020-02-06] MEDS: InsuLIN REG 1unit/0.01ml Soln (100units/ml) SC SCH ×4 (06:00→18:00)
[2020-02-06] MEDS: INSULIN LANTUS (GLARGINE) 1 /0.01ml (100units/ml) SC SCH ×2 (06:06→18:33)
[2020-02-06] MEDS: METOCLOPRAMIDE HCL 5MG/ml INJ 2ml VIAL IV SCH ×3 (06:06→22:15)
--- NOTE | 2020-02-06 06:19 | NUR ---
Mrs. Tanner, the clinical social work aide from the correction called for an update, password provided, all questions and concerns answered.
--- NOTE | 2020-02-06 06:54 | NUR ---
Closing note: Patient is asleep in bed, no S/S of pain or SOB, oxygen saturation is 93%, meng remains hung below bladder and draining yellow urine. Guards are at bedside for safety.
--- NOTE | 2020-02-06 07:35 | NUR ---
Opening Shift Note Assumed care of patient from noc shift rn, awake and alert, and oriented x4, lying supine in bed with tracheostomy tube on O2 at 6L/min, pt. on continuous pulse oximeter. Pressure ulcer on sacrum covered with optifoam, noted to be clean, dry, and intact. Guards at bedside. No S/S of distress/SOB or pain. Instructed on POC and to call for assist PRN, will continue to monitor for changes Q1hr and PRN.
[2020-02-06 08:00] VITALS: BP 119/81
--- NOTE | 2020-02-06 08:24 | NUR ---
PT IS AWAKE, ALERT AND ORIENTED. SHILEY 0.8 HOSPITAL ADMINISTRATOR IN SITU, PROPERLY SECURED AND PATENT. SPARE UNIT OF AT BEDSIDE ALONG WITH OBTURATOR. CONTINUOUS PULSE OXYMETER AT BEDSIDE. ALARMS ARE SET AND FUNCTIONAL, DISPLAYING HR AND O2 SATS. PT ON SEMI FOWLERS POSITION. BS ARE SLIGHT INSPIRATORY RALES TO AUSCULTATION. SUCTION DONE FOR SMALL AMOUNT OF PALE SECRETION WITHOUT INCIDENT. PT ABLE TO COUGH AND ORAL SUCTION WITH YANKAUER. TRACHEOSTOMY DRAINING GUZE WAS REPLACED WITHOUT INCIDENT. CLEAN AROUND STOMA. PT ON 21% COOL MYST AEROSOL VIA TRACHEOSTOMY MASK. NO ACUTE DISTRESS NOTED.
[2020-02-06] MEDS: cefTRIAXone 1GM/50ML D5W 50 ML IV SCH (08:42)
[2020-02-06] MEDS: Glucerna Carbsteady SHAKE Vanilla 8oz PO SCH ×2 (08:42→18:25)
[2020-02-06] MEDS: FLUTICASONE PROP NASAL SPR 0.05 % (50MCG) 16GM EACHNOSTRI SCH (09:56)
[2020-02-06] MEDS: LACTULOSE 20Gm/30ML SOLN PO SCH ×2 (09:57→22:15)
[2020-02-06] MEDS: PANTOPRAZOLE 40 MG/10 ML VIAL INJ IV SCH (09:58)
[2020-02-06] MEDS: BACITRACIN TOP OINT 1 UD PKG TOP SCH ×2 (09:59→22:15)
[2020-02-06] MEDS: MONTELUKAST SODIUM 10 MG TAB PO SCH (09:59)
[2020-02-06] MEDS: ADVAIR IN SCH ×2 (10:00→22:00)
[2020-02-06] MEDS: FLUCONAZOLE 200MG/100ML 100 ML IV SCH ×2 (10:00→11:37)
[2020-02-06] MEDS: LORATADINE 10 MG TAB PO SCH (10:00)
[2020-02-06 12:00] VITALS: BP 113/75
--- NOTE | 2020-02-06 16:00 | NUR ---
SPOKE TO RT ABOUT ORDERING SPEAKING VALVE FOR PATIENT PER MD'S REQUEST. PER RT STAFF, THEY WILL PUT IN THE ORDER.
[2020-02-06 17:00] VITALS: BP 111/73
--- NOTE | 2020-02-06 19:40 | NUR ---
Opening Shift Note Assumed care of patient, awake, AAOx4. On bedrest and tracheostomy tube on O2 at 6L/min, on continuous pulse oximeter. Optifoam to sacrum CDI. Guards at bedside. No S/S of distress/SOB or pain. Goldstein catheter patent and draining to gravity. Bed in lowest locked position, side rails up x2, call light within reach. Instructed on POC and to call for assist PRN, will continue to monitor for changes Q1hr and PRN.
[2020-02-06 22:00] VITALS: BP 118/74
[2020-02-06] MEDS: ACETAMINOPHEN 325 MG TAB PO PRN (22:15)
--- NOTE | 2020-02-07 00:25 | NUR ---
RT NOTE: TRACH CARE PERFORMED AT THIS TIME. SUCTION FOR SEMI THICK SILVER SECRETIONS. PT HAS 8.[address] WITH NO REDNESS OR BREAK DOWN NOTED. PT HAS BANDAGE BELOW TRACH AREA. PT ON TRACH COLLAR WITH COOL AEROSOL RUNNING. TRACHEAL SPONGES REPLACED AND INNER CANULA CLEANED. PT TOLERATED WELL. SPARE TRACH AT BEDSIDE.
[2020-02-07 05:00] VITALS: BP 109/74
[2020-02-07] MEDS: METOCLOPRAMIDE HCL 5MG/ml INJ 2ml VIAL IV SCH ×3 (05:57→22:00)
[2020-02-07] MEDS: ACCU-CHEK COMFORT CURVE STRIP VI SCH ×4 (05:57→18:32)
[2020-02-07] MEDS: InsuLIN REG 1unit/0.01ml Soln (100units/ml) SC SCH ×4 (06:13→18:33)
[2020-02-07] MEDS: INSULIN LANTUS (GLARGINE) 1 /0.01ml (100units/ml) SC SCH ×2 (06:14→18:34)
--- NOTE | 2020-02-07 07:32 | NUR ---
Opening Shift Note Assumed care of patient from noc shift rn, awake and alert, and oriented x4, supine in bed with tracheostomy tube on O2 at 6L/min. Pt. on continuous pulse oximeter. Pressure ulcer on sacrum covered with optifoam, noted to be clean, dry, and intact. Guards at bedside. No S/S of distress/SOB, denies pain at this time. Instructed on POC and to call for assist PRN, will continue to monitor for changes Q1hr and PRN.
[2020-02-07 08:00] VITALS: BP 125/84
[2020-02-07] MEDS: Glucerna Carbsteady SHAKE Vanilla 8oz PO SCH ×2 (08:00→18:00)
--- NOTE | 2020-02-07 08:33 | NUR ---
I called [facility] [employer] Tender Estela [phone] and left message asking for an update on the superintendent marine oil terminal plan of care for this patient.
[2020-02-07] MEDS: cefTRIAXone 1GM/50ML D5W 50 ML IV SCH (09:05)
[2020-02-07] MEDS: ADVAIR IN SCH ×2 (10:00→22:00)
--- NOTE | 2020-02-07 10:20 | NUR ---
GAVE INTERMEDIATE MD UPDATE ON PATIENT'S CARE PLAN
[2020-02-07] MEDS: DIGOXIN (250MCG/ML) 2 ML AMPULE IV SCH (10:34)
[2020-02-07] MEDS: PANTOPRAZOLE 40 MG/10 ML VIAL INJ IV SCH (10:34)
[2020-02-07] MEDS: LORATADINE 10 MG TAB PO SCH (10:35)
[2020-02-07] MEDS: MONTELUKAST SODIUM 10 MG TAB PO SCH (10:36)
[2020-02-07] MEDS: LACTULOSE 20Gm/30ML SOLN PO SCH ×2 (10:37→22:00)
[2020-02-07] MEDS: FLUTICASONE PROP NASAL SPR 0.05 % (50MCG) 16GM EACHNOSTRI SCH (10:37)
[2020-02-07] MEDS: BACITRACIN TOP OINT 1 UD PKG TOP SCH ×2 (10:37→22:00)
[2020-02-07] MEDS: FLUCONAZOLE 200MG/100ML 100 ML IV SCH ×2 (10:38→12:25)
[2020-02-07 12:00] VITALS: BP 116/78
--- NOTE | 2020-02-07 13:24 | NUR ---
Respiratory note: PT IS AWAKE, AND ALERT. NO RESPIRATORY DISTRESS NOTED. SPO2 98% VIA TRACH COLLAR ON 6L 28% FIO2, HR 102, RR 18, BS CLEAR/DIMINISHED BILATERALLY. SX FOR SCANT AMOUNT OF THIN, CLEAR SECRETIONS. GAG REFLEX NOTED. PRN MEDNEB TX NOT INDICATED AT THIS TIME. PT INFORMED TO PUSH CALL BUTTON IF INCREASED WOB, SOB, OR WHEEZING OCCURS. GUARDS AT BEDSIDE. WILL CONTINUE TO MONITOR PT.
--- NOTE | 2020-02-07 14:36 | NUR ---
Nutrition Follow-up Notes Wt.: 78.7 kg Pt is currently on mechanical soft diet along with Glucerna 1 carton bid tolerating well, with inadequate PO of 505 avg x 4 per RN doc. per records pt s/p tach Est. Needs BW 81 [id number] kcals (20-25 kcal/kgBW). 101-126 gms/day (1.2-1.5 gm/kgBW low prealb). Will continue to monitor pertinent labs and reassess nutrient need prn. 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 refer to notes for details GI: Pt last BM noted on 02/01 per high school french teacher. PES: Altered nutrition related lab values r/t current medical condition aeb hyponatremia, elevated RFTs, hyperglycemia, hypocalcemia, elevated bilirubin severe hypoalbuminemia Will continue to monitor PO intake, skin status, pertinent labs and weight trend. F/u in 3-5 days. Rec.: 1.) continue assistance with meals. 2) Continue current plan of care. Addendum: 02/07/20 at [address] F/u mod 3-5 days
[2020-02-07 16:55] VITALS: BP 120/68
[2020-02-07 22:00] VITALS: BP 111/75
[2020-02-08 04:53] VITALS: BP 119/72
[2020-02-08 05:43] LABS: Basophils # (auto) 0.1 10 ^3/uL (0-0.2); Basophils % (auto) 0.5 % (0.0-2.0); Eosinophils # (auto) 0.3 10 ^3/uL (0-0.8); Eosinophils % (auto) 2.1 % (0.0-7.0); Hematocrit 37.5 % (41.0-53.0); Hemoglobin 12.4 g/dL (13.5-17.5); Lymphocytes # (auto) 1.6 10 ^3/uL (0.4-5.4); Lymphocytes % (auto) 9.9 % (10.0-50.0); Mean Corpuscular Hemoglobin 28.3 pg (28.0-32.0); Mean Corpuscular Hgb Conc. 33.1 g/dL (32.0-36.0); Mean Corpuscular Volume 85.8 fL (80.0-100.0); Monocytes # (auto) 0.7 10 ^3/uL (0-1.3); Monocytes % (auto) 4.1 % (0.0-12.0); Neutrophils # (auto) 13.7 10 ^3/uL (1.6-8.6); Neutrophils % (auto) 83.4 % (37.0-80.0); Platelet Count (auto) 467 10^3/uL (140-450); Red Blood Cells 4.37 10^6/uL (4.5-5.90); Red Cell Distribution Width 19.8 % (11.8-14.3); White Blood Cell 16.5 10^3/uL (4.4-10.8)
[2020-02-08 06:03] LABS: Potassium 4.5 mmol/L (3.5-5.1)
[2020-02-08 06:11] LABS: BUN/Creatinine Ratio 12.1; Calcium 8.3 mg/dL (8.5-10.1)
[2020-02-08] MEDS: METOCLOPRAMIDE HCL 5MG/ml INJ 2ml VIAL IV SCH ×3 (06:16→22:51)
[2020-02-08] MEDS: ACCU-CHEK COMFORT CURVE STRIP VI SCH ×4 (06:16→18:10)
[2020-02-08] MEDS: InsuLIN REG 1unit/0.01ml Soln (100units/ml) SC SCH ×4 (06:26→18:00)
[2020-02-08] MEDS: INSULIN LANTUS (GLARGINE) 1 /0.01ml (100units/ml) SC SCH ×2 (06:29→18:40)
[2020-02-08 08:00] VITALS: BP 116/79
[2020-02-08] MEDS: Glucerna Carbsteady SHAKE Vanilla 8oz PO SCH ×2 (08:00→18:00)
[2020-02-08] MEDS: cefTRIAXone 1GM/50ML D5W 50 ML IV SCH (09:36)
[2020-02-08] MEDS: ADVAIR IN SCH ×2 (10:00→22:30)
[2020-02-08 11:01] VITALS: BP 116/79
--- NOTE | 2020-02-08 11:14 | NUR ---
PHYSICAL THERAPY AT BEDSIDE. PATIENT AMBULATING IN HALLWAY.
[2020-02-08] MEDS: FLUTICASONE PROP NASAL SPR 0.05 % (50MCG) 16GM EACHNOSTRI SCH (11:35)
[2020-02-08] MEDS: FLUCONAZOLE 200MG/100ML 100 ML IV SCH ×2 (11:36→12:49)
[2020-02-08] MEDS: PANTOPRAZOLE 40 MG/10 ML VIAL INJ IV SCH (11:36)
[2020-02-08] MEDS: LACTULOSE 20Gm/30ML SOLN PO SCH ×3 (11:37→22:30)
[2020-02-08] MEDS: BACITRACIN TOP OINT 1 UD PKG TOP SCH ×2 (11:37→22:51)
[2020-02-08] MEDS: LORATADINE 10 MG TAB PO SCH (11:37)
[2020-02-08] MEDS: MONTELUKAST SODIUM 10 MG TAB PO SCH (11:37)
[2020-02-08 12:00] VITALS: BP 101/66
--- NOTE | 2020-02-08 12:31 | NUR ---
Nita CASTELLON AT BEDSIDE. INFORMED OF PATIENT STATUS. INSTRUCTED TO PLACE PATIENT ON ROOM AIR. PATIENT TOLERATING WELL. OXYGEN SATURATING AT 96%.
--- NOTE | 2020-02-08 13:37 | NUR ---
RT AND SPEECH THERAPIST AT BEDSIDE WITH SPEAKING VALVE.
[2020-02-08] MEDS: ONDANSETRON HCL 4 MG/2 ML VIAL IV PRN ×2 (13:38→17:26)
--- NOTE | 2020-02-08 13:46 | NUR ---
SPEAKING VALVE PLACED ON PATIENT BY RESPIRATORY THERAPIST. SPEECH THERAPIST EXPLAINED FUNCTION OF SPEAKING VALVE AND EDUCATED PATIENT IN HOW IT WORKS TO CAUSE PHONATION. PATIENT ABLE TO PRODUCE WORDS INCLUDING SUSTAINED PHONATION. PATIENT ADVISED TO TAKE A BREATH AND SPEAK ON EXHALE. RT AGREED PATIENT CAN LEAVE VALVE ON. NURSING PRESENT AND REPORTED UNDERSTANDING OF NEW VALVE.
[2020-02-08 16:30] VITALS: BP 111/78
--- NOTE | 2020-02-08 17:25 | NUR ---
PATIENT HAD LARGE BM.
--- NOTE | 2020-02-08 18:40 | NUR ---
DRESSING TO RIJ CHANGED PER HOSPITAL POLICY.
--- NOTE | 2020-02-08 19:50 | NUR ---
open note assumed care of pt. upon entering room pt awake alert and oriented x4. pt on room air no dsitress noted or expressed. pt has meng in place, secured, below the waist and draining clear yellow. pt denies any pain. pt updated on plan of care. pt bed locked, low and 2x rails up. pt has ameya at bedside. pt call light in reach. this nurse to round q1hr and prn. pt encouraged to call as needed.
--- NOTE | 2020-02-08 20:17 | NUR ---
SPEAKING VALVE REMOVED AT THIS TIME. TRACH CARE PERFORMED. NO RESPIRATORY DISTRESS NOTED.
[2020-02-08 21:35] VITALS: BP 117/66
[2020-02-09 05:04] VITALS: BP 117/79
[2020-02-09] MEDS: InsuLIN REG 1unit/0.01ml Soln (100units/ml) SC SCH ×4 (06:00→18:16)
[2020-02-09] MEDS: LACTULOSE 20Gm/30ML SOLN PO SCH ×4 (06:00→23:00)
[2020-02-09] MEDS: METOCLOPRAMIDE HCL 5MG/ml INJ 2ml VIAL IV SCH ×3 (06:17→22:57)
[2020-02-09] MEDS: ACCU-CHEK COMFORT CURVE STRIP VI SCH ×4 (06:18→18:16)
[2020-02-09] MEDS: INSULIN LANTUS (GLARGINE) 1 /0.01ml (100units/ml) SC SCH ×2 (06:18→18:17)
--- NOTE | 2020-02-09 07:05 | NUR ---
PT. PLACED ON SPEAKING VALVE, CUFF IS DEFLATED AT THIS TIME. PT. IS ON 2LPM NC, SP02=99%, HR=96,RR=20. PT. TOLERATING WELL AT THIS TIME. SX'D TRACH PRIOR TO GOING ON SPEAKING VALVE, FOR SMALL AMOUNT OF THICK CLEAR SECRETIONS. CONTINUE TO MONITOR PT. FOR ANY S/S OF DISTRESS.
--- NOTE | 2020-02-09 07:30 | NUR ---
Opening Shift Note Assumed care of patient, awake and alert, guard at bedside. No S/S of distress/SOB or pain on speaking valve and 2 LPM via nasal cannula. Bed in low and locked position, rails up x2, no-slip socks on, patient cuffs to bilateral lower extremities, padding in place to ensure skin integrity. Instructed on POC and to call for assist PRN, will continue to monitor for changes Q1hr and PRN.
[2020-02-09 08:00] VITALS: BP 121/76
[2020-02-09] MEDS: cefTRIAXone 1GM/50ML D5W 50 ML IV SCH (09:53)
[2020-02-09] MEDS: FLUTICASONE PROP NASAL SPR 0.05 % (50MCG) 16GM EACHNOSTRI SCH (09:54)
[2020-02-09] MEDS: DIGOXIN (250MCG/ML) 2 ML AMPULE IV SCH (09:55)
[2020-02-09] MEDS: PANTOPRAZOLE 40 MG/10 ML VIAL INJ IV SCH (09:55)
[2020-02-09] MEDS: LORATADINE 10 MG TAB PO SCH (09:56)
[2020-02-09] MEDS: FLUCONAZOLE 200MG/100ML 100 ML IV SCH ×2 (09:56→14:32)
[2020-02-09] MEDS: Glucerna Carbsteady SHAKE Vanilla 8oz PO SCH ×2 (09:56→18:15)
[2020-02-09] MEDS: MONTELUKAST SODIUM 10 MG TAB PO SCH (09:56)
[2020-02-09] MEDS: ADVAIR IN SCH ×2 (10:00→22:00)
[2020-02-09] MEDS: BACITRACIN TOP OINT 1 UD PKG TOP SCH ×2 (11:52→23:01)
[2020-02-09 12:00] VITALS: BP 116/80
--- NOTE | 2020-02-09 12:01 | NUR ---
ELEVATED BLOOD GLUCOSE 352, PATIENT STATED HE HAD 3 ORANGE JUICES AND ATE ALL OF HIS BREAKFAST THIS MORNING, HE HAD IMPROVED APPETITE TODAY AND COMPLETED 100% OF BREAKFAST WITHOUT NAUSEA, WILL MEDICATE WITH INSULIN ORDERED
--- NOTE | 2020-02-09 14:00 | NUR ---
TRACH CARE DONE AT THIS TIME. SITE CLEANED , PT. SX'D FOR THICK PALE TO CLEAR SECRETIONS. PT. COUGHED UP LARGE AMOUNT OF THICK YELLOW SECRETIONS DURING TRACH CARE. INNER CANNULA CLEANED AND DRAIN SPONGE CHANGED. CONTINUE TO MONITOR PT'S RESP. STATUS WHILE ON SPEAKING VALVE. JJ=838,RR=24,SPO2=99% ON 2LPM NC.
--- NOTE | 2020-02-09 16:00 | NUR ---
COMPLAINING OF SHORTNESS OF BREATH PATIENT BREATHING ASSESSED TO BE NON-LABOROUS, LUNG SOUND CLEAR, DIMINISHED RR 18, SATURATING AT 98% WITH 2 LPM VIA NASAL CANNULA WITH SPPECH VALVE IN PLACE, PATIENT STATED AFTER TRACH CARE HE HAS PROGRESSIVELY FELT SHORT OF BREATH AND THAT HE IS REQUIRING MORE EFFORT. PAGE TO RT, SPOKE TO CHIQUITA RT AND STATED THAT PATIENT IS TO BE WEANED OFF OF TRACH COLLAR AT THIS TIME BY USE OF SPEECH VALVE, INFORMED ON MECHANISM OF USE AND HOW PATIENT MAY NEED MORE EFFORT TO BREATHE USING UPPER RESPIRATORY. OK TO INCREASE NASAL CANNULA LPM FOR ASSISTANCE WITH SUPPLEMENTAL OXYGEN. NASAL CANNULA INCREASED TO 5 LPM, PATIENT STATED SOME IMPROVEMENT, WILL CONTINUE TO MONITOR.
--- NOTE | 2020-02-09 16:30 | NUR ---
DR CASTELLON AT BEDSIDE NO NEW ORDERS
[2020-02-09 17:03] VITALS: BP 112/80
--- NOTE | 2020-02-09 17:30 | NUR ---
STILL SHORT OF BREATH OXYGEN SATURATION 98%, NON-LABOROUS AND REGULAR RESPIRATIONS AT 18. PAGE TO RT TO REPLACE TRACH COLLAR, PATIENT STATED HE WISHES SPEECH VALVE TO BE REMOVED, HE HAS "HAD IT FOR MOST OF THE DAY" AND HE "IS TIRED", AWAITING CALL BACK.
--- NOTE | 2020-02-09 17:50 | NUR ---
TRACH COLLAR REPLACED PATIENT O2 98% BUT STILL COMPLAINING OF SHORTNESS OF BREATH WITH SPEECH VALVE IN PLACE. REMOVED AND PATIENT EXPRESSED FEELINGS OF RELIEF. AGAIN EDUCATED PATIENT ON NEED TO TITRATE OFF OF TRACH COLLAR BUT PATIENT STATED HE WOULD LIKE THE VALVE REMOVED AT THIS TIME. TRACH SUCTIONING PERFORMED PER PATIENT REQUEST, USING STERILE TECHNIQUE WITH SCANT THIN SECRETIONS SUCTIONED. PATIENT TOLERATED IT WELL. PLACED PATIENT ON TRACH COLLAR AT 6L 28% FiO2. O2 SATURATION 99%, WILL CONTINUE TO MONITOR. ANOTHER PAGE TO RT SENT OUT TO INFORM ON INCIDENT.
--- NOTE | 2020-02-09 18:18 | NUR ---
PAGE TO DR CASTELLON
--- NOTE | 2020-02-09 19:00 | NUR ---
Pt awake alert and oriented. Respirations unlabored on trach collar. NAD. VSS on monitor. Pt uses oral suction himself to suction secretions. Lung sounds clear BL. Abdomen soft. Call light in reach. CVC site clear, dressing intact. Linens and gown clean and dry.
[2020-02-09 22:15] VITALS: BP 112/78
--- NOTE | 2020-02-09 23:11 | NUR ---
RN paged Dr Miller to clarify accucheck and insulin q6, pt is mechanical soft diet. Pt requesting sleeping pill. Pt states he is receiving lactulose for constipation but has had BMs and does not want the lactulose at this time.
--- NOTE | 2020-02-10 01:33 | NUR ---
Insulin held at this time, patient is eating meals, but not currently eating. Will notify MD to clarify 0000 insulin and Accuchecks Q6H VS AC HS and verify correction dosing and timing.
[2020-02-10 05:08] VITALS: BP 112/82
[2020-02-10] MEDS: LACTULOSE 20Gm/30ML SOLN PO SCH ×4 (06:00→22:09)
[2020-02-10] MEDS: ACCU-CHEK COMFORT CURVE STRIP VI SCH ×5 (06:00→22:16)
--- NOTE | 2020-02-10 06:04 | NUR ---
RN paged Dr Miller to clarify insulin orders.
[2020-02-10] MEDS: METOCLOPRAMIDE HCL 5MG/ml INJ 2ml VIAL IV SCH ×3 (06:25→22:09)
[2020-02-10] MEDS: INSULIN LANTUS (GLARGINE) 1 /0.01ml (100units/ml) SC SCH ×2 (06:26→17:35)
--- NOTE | 2020-02-10 06:50 | NUR ---
Pt awake and alert. VSS. Goldstein catheter in place, patent. CVC in place, dressing CDI. Linens and gown clean and dry. Call light in reach. On shift supervisor rn. NAD, no changes to pt condition.
[2020-02-10 09:00] VITALS: BP 113/76
[2020-02-10] MEDS: cefTRIAXone 1GM/50ML D5W 50 ML IV SCH (09:19)
[2020-02-10] MEDS: Glucerna Carbsteady SHAKE Vanilla 8oz PO SCH ×2 (09:20→17:50)
[2020-02-10] MEDS: ADVAIR IN SCH ×2 (10:00→22:00)
--- NOTE | 2020-02-10 10:30 | NUR ---
WOUND CARE NOTE: IN TO SEE PATIENT AT THIS TIME FOR WOUND RE-EVALUATION OF COCCYX WOUND. PATIENT HAS CURRENT ABBY SCORE OF 14. PATIENT IS ABLE TO SELF TURN/REPOSITION SELF, HE CONTINUES TO REST ON SPECIALTY AIR MATTRESS. HE IS WORKING WITH PHYSICAL THERAPY, AMBULATING. HE STATES THAT HE IS ABLE TO EAT MORE, AND IS DRINKING HIS HIGH PROTEIN SHAKES. PATIENT'S PRESSURE INJURY TO SACRUM LOOKS MUCH IMPROVED, WITH RED GRANULATION NOTED WITHIN APPROXIMATELY 50 PERCENT, YELLOW SLOUGH IN REMAINING AREAS OF WOUND BED. APPLIED THERAHONEY, OPTIFOAM GENTLE DRESSING PER MD ORDER. PATIENT ADVISED TO CONTINUE SIDE TO SIDE POSITIONING WHILE IN BED, AND HE IS IN AGREEMENT. ADVISED PATIENT TO GET UP IN CHAIR FOR HIS MEALS TO HELP BUILD HIS STRENGTH, AND HELP TO KEEP OFF HIS WOUND. RECOMMEND: CONTINUATION WITH ALL WOUND CARE ORDERS PREVIOUSLY PRESCRIBED BY MD, UP IN CHAIR FOR MEALS. WOUND CARE TEAM WILL CONTINUE TO MONITOR. Addendum: 02/10/20 at 1829 by Denisha Thornton RN Amended: Links added.
[2020-02-10] MEDS: FLUCONAZOLE 200MG/100ML 100 ML IV SCH ×2 (10:49→12:13)
[2020-02-10] MEDS: FLUTICASONE PROP NASAL SPR 0.05 % (50MCG) 16GM EACHNOSTRI SCH (11:18)
[2020-02-10] MEDS: LORATADINE 10 MG TAB PO SCH (11:19)
[2020-02-10] MEDS: MONTELUKAST SODIUM 10 MG TAB PO SCH (11:19)
[2020-02-10] MEDS: BACITRACIN TOP OINT 1 UD PKG TOP SCH ×2 (11:19→22:10)
[2020-02-10] MEDS: PANTOPRAZOLE 40 MG/10 ML VIAL INJ IV SCH (11:19)
[2020-02-10] MEDS ORDERED: DEXTROSE (50%) 50ML SYRG IV PRN (12:30)
--- NOTE | 2020-02-10 12:38 | NUR ---
Nutrition Follow-up Notes Wt.: 76.0 kg Pt is currently on mechanical soft diet along with Glucerna 1 carton bid tolerating well, with adequate PO of 75% x 6 per RN doc. per records pt s/p tach Est. Needs BW 81 [id number] kcals (20-25 kcal/kgBW). 101-126 gms/day (1.2-1.5 gm/kgBW low prealb). Will continue to monitor pertinent labs and reassess nutrient need prn. Labs: No new labs today POC GLU 282 H Skin: Irwin scale 14 mod risk, pt with pressure ulcers per measurement specialist. refer to WC notes for details GI: Pt had 1 BM yesterday per measurement specialist. PES: Altered nutrition related lab values r/t current medical condition aeb hyponatremia, elevated RFTs, hyperglycemia, hypocalcemia, elevated bilirubin severe hypoalbuminemia Will continue to monitor PO intake, skin status, pertinent labs and weight trend. F/u in 3-5 days. Rec.: 1.) consider CCHO 60 gm along with current diet as pt with elev blood glu. 2) Continue current plan of care.
[2020-02-10] MEDS: InsuLIN REG 1unit/0.01ml Soln (100units/ml) SC SCH ×4 (12:52→22:14)
[2020-02-10 13:00] VITALS: BP 125/81
[2020-02-10 17:00] VITALS: BP 118/71
--- NOTE | 2020-02-10 19:00 | NUR ---
Patient in bed, resting. No signs of distress, no SOB. Plan of care discussed with patient. Bed on lowest position, call light with in reach. Patient has a valve on trach that enables him to communicate. Patient tolerating it well.
[2020-02-10] MEDS: ALBUTEROL SULF 2.5 MG/0.5ML(0.5%) NEB SOLN NEB PRN (21:55)
--- NOTE | 2020-02-10 21:55 | NUR ---
Respiratory note: REMOVED SPEAKING VALVE FROM PT AT THIS TIME AND PLACED BACK ON TRACH COLLAR AT 28% FIO2 AT THIS TIME, PT TRACHED WITH SIZE 8.0 SHILEY WITH NO REDNESS NOTED AROUND TRACH. TRACH SITE CLEAN AT THIS TIME.
[2020-02-10 22:17] VITALS: BP 116/76
--- NOTE | 2020-02-10 23:10 | NUR ---
Rounds Patient awake and alert. No S/S of distress/SOB or pain. Will continue to monitor.
--- NOTE | 2020-02-11 03:39 | NUR ---
Patient resting, no signs of distress.
[2020-02-11] MEDS: INSULIN LANTUS (GLARGINE) 1 /0.01ml (100units/ml) SC SCH ×2 (05:01→17:29)
[2020-02-11] MEDS: METOCLOPRAMIDE HCL 5MG/ml INJ 2ml VIAL IV SCH ×3 (05:06→22:11)
[2020-02-11] MEDS: InsuLIN REG 1unit/0.01ml Soln (100units/ml) SC SCH ×4 (05:06→22:11)
[2020-02-11] MEDS: ACCU-CHEK COMFORT CURVE STRIP VI SCH ×4 (05:06→22:11)
[2020-02-11] MEDS: LACTULOSE 20Gm/30ML SOLN PO SCH ×4 (05:06→22:00)
--- NOTE | 2020-02-11 05:08 | NUR ---
Patient awake, alert and oriented, no signs of distress, denies pain.
[2020-02-11 05:21] VITALS: BP 113/85
--- NOTE | 2020-02-11 07:40 | NUR ---
MAY CATHETER CARE COMPLETED. PT TOLERATED WELL. OPTIFOAM TO TRACH CHANGED AND AREA CLEANSED.
[2020-02-11] MEDS: Glucerna Carbsteady SHAKE Vanilla 8oz PO SCH ×2 (08:14→17:30)
[2020-02-11] MEDS: cefTRIAXone 1GM/50ML D5W 50 ML IV SCH (08:14)
--- NOTE | 2020-02-11 08:30 | NUR ---
Respiratory note: PT TAKEN OFF COOL MIST AND PLACED PMV AND PLACED ON 2 LPM NC. PT TOLERATING WELL.
[2020-02-11 08:54] VITALS: BP 113/85
[2020-02-11 09:00] VITALS: BP 110/80
[2020-02-11] MEDS: MONTELUKAST SODIUM 10 MG TAB PO SCH (09:17)
[2020-02-11] MEDS: BACITRACIN TOP OINT 1 UD PKG TOP SCH ×2 (09:17→22:11)
[2020-02-11] MEDS: FLUTICASONE PROP NASAL SPR 0.05 % (50MCG) 16GM EACHNOSTRI SCH (09:17)
[2020-02-11] MEDS: LORATADINE 10 MG TAB PO SCH (09:17)
[2020-02-11] MEDS: PANTOPRAZOLE 40 MG/10 ML VIAL INJ IV SCH (09:17)
[2020-02-11] MEDS: FLUCONAZOLE 200MG/100ML 100 ML IV SCH ×2 (09:18→10:43)
[2020-02-11] MEDS: ADVAIR IN SCH ×2 (09:18→22:00)
--- NOTE | 2020-02-11 11:40 | NUR ---
DR. JUAN IN TO SEE PT. PLAN OF CARE DISCUSSED.
[2020-02-11] MEDS: DIGOXIN (250MCG/ML) 2 ML AMPULE IV SCH (12:54)
[2020-02-11 13:00] VITALS: BP 127/80
[2020-02-11 17:00] VITALS: BP 118/78
[2020-02-11] MEDS: ACETAMINOPHEN 325 MG TAB PO PRN (17:53)
--- NOTE | 2020-02-11 19:30 | NUR ---
Opening Shift Note Assumed care of patient, awake and alert. No S/S of distress/SOB or pain. Instructed on POC and to call for assist PRN, will continue to monitor for changes Q1hr and PRN. Guards at bedside.
--- NOTE | 2020-02-11 20:52 | NUR ---
Respiratory note: ASSESSED PT FOR PRN MED NEB TX. PT IS CURRENTLY ON 2 L/M NC: HR 101, RR 18, SPO2 100%. PT SHOWS NO S/S OF SOB OR RESPIRATORY DISTRESS. MED NEB TX NOT INDICATED AT THIS TIME. GUARDS AT BEDSIDE. WILL CONTINUE TO MONITOR.
[2020-02-11 22:00] VITALS: BP 109/74
--- NOTE | 2020-02-11 22:24 | NUR ---
Respiratory note: REMOVED SPEAKING VALVE FROM PT AT THIS TIME AND PLACED PT BACK ON TRACH COLLAR AT 6 L/M 28% FIO2. PT TOLERATING CHANGE WELL. GUARDS AND RN AT BEDSIDE. WILL CONTINUE TO MONITOR.
[2020-02-12 05:00] VITALS: BP 93/77
[2020-02-12] MEDS: METOCLOPRAMIDE HCL 5MG/ml INJ 2ml VIAL IV SCH ×3 (06:39→21:52)
[2020-02-12] MEDS: LACTULOSE 20Gm/30ML SOLN PO SCH ×4 (06:39→21:52)
[2020-02-12] MEDS: INSULIN LANTUS (GLARGINE) 1 /0.01ml (100units/ml) SC SCH ×2 (06:40→18:04)
[2020-02-12] MEDS: InsuLIN REG 1unit/0.01ml Soln (100units/ml) SC SCH ×4 (06:40→21:52)
[2020-02-12] MEDS: ACCU-CHEK COMFORT CURVE STRIP VI SCH ×4 (06:40→21:53)
--- NOTE | 2020-02-12 07:40 | NUR ---
DRESSING CHANGED TO TRACH. AREA CLEANSED. DRESSING SECURED, PT TOLERATED PROCEDURE WELL. CALL LIGHT WITHIN REACH. WILL CONTINUE TO MONITOR.
--- NOTE | 2020-02-12 08:30 | NUR ---
Respiratory note: PATIENT PLACED ON PMV AT THIS TIME PER HIS REQUEST. HE WAS TAKEN OFF TRACH MASK AND PLACED ON 1LPM NASAL CANNULA. SPO2 MAINTAINS AT 97%. MICHAEL LOONEY MADE AWARE OF CHANGES.
[2020-02-12 09:00] VITALS: BP 116/79
[2020-02-12] MEDS: BACITRACIN TOP OINT 1 UD PKG TOP SCH (09:31)
[2020-02-12] MEDS: cefTRIAXone 1GM/50ML D5W 50 ML IV SCH (09:31)
[2020-02-12] MEDS: Glucerna Carbsteady SHAKE Vanilla 8oz PO SCH ×2 (09:31→18:05)
[2020-02-12] MEDS: PANTOPRAZOLE 40 MG/10 ML VIAL INJ IV SCH (09:31)
[2020-02-12] MEDS: FLUTICASONE PROP NASAL SPR 0.05 % (50MCG) 16GM EACHNOSTRI SCH (09:31)
[2020-02-12] MEDS: LORATADINE 10 MG TAB PO SCH (09:32)
[2020-02-12] MEDS: MONTELUKAST SODIUM 10 MG TAB PO SCH (09:32)
[2020-02-12] MEDS: ADVAIR IN SCH ×2 (09:32→21:52)
[2020-02-12] MEDS: FLUCONAZOLE 200MG/100ML 100 ML IV SCH ×2 (11:22→12:35)
[2020-02-12] MEDS: DIGOXIN (250MCG/ML) 2 ML AMPULE IV SCH (12:38)
[2020-02-12 13:00] VITALS: BP 111/81
--- NOTE | 2020-02-12 14:55 | NUR ---
Respiratory note: COMPLETE TRACH CHANGE DONE AT THIS TIME WITH DR. JUAN. 8 SHILEY REMOVED WITH MODERATE AMOUNT OF RESISTANCE, AND WAS DOWNSIZED TO A CUFFED 6 SHILEY FENESTRATED. NEW TRACH TUBE INSERTED WITH NO RESISTANCE; PATIENT TOLERATED PROCEDURE WELL. SMALL AMOUNT OF BLOOD NOTED POST PROCEDURE AT STOMA SITE, NO BLOOD NOTED ON TRACHEAL SUCTION POST PROCEDURE. PMV PLACED ON NEW TRACH AND PATIENT REMAINS ON 1LPM NASAL CANNULA WITH SPO2 OF 96%. ALL TRACH CARE DONE AT THIS TIME.
[2020-02-12 17:00] VITALS: BP 114/82
--- NOTE | 2020-02-12 17:20 | NUR ---
MAY CATHETER CARE COMPLETED.
[2020-02-12] MEDS: ONDANSETRON HCL 4 MG/2 ML VIAL IV PRN (18:03)
--- NOTE | 2020-02-12 19:55 | NUR ---
Opening Shift Note Assumed care of patient, awake and alert. No S/S of distress/SOB or pain. Instructed on POC and to call for assist PRN, will continue to monitor for changes Q1hr and PRN.
[2020-02-12] MEDS: TEMAZEPAM 15 MG CAP PO PRN (21:53)
[2020-02-12 22:00] VITALS: BP 109/77
--- NOTE | 2020-02-12 22:00 | NUR ---
Patient Refused Insulin & Lactulose Patient refused insulin and lactulose. Patient stated "i don't want lactulose because I soft stool and I don't want insulin right now". Educated the patient but still refused.
[2020-02-13 05:00] VITALS: BP 113/77
[2020-02-13] MEDS: METOCLOPRAMIDE HCL 5MG/ml INJ 2ml VIAL IV SCH ×3 (06:35→21:15)
[2020-02-13] MEDS: LACTULOSE 20Gm/30ML SOLN PO SCH ×4 (06:36→21:15)
[2020-02-13] MEDS: InsuLIN REG 1unit/0.01ml Soln (100units/ml) SC SCH ×4 (06:36→21:15)
[2020-02-13] MEDS: ACCU-CHEK COMFORT CURVE STRIP VI SCH ×4 (06:36→21:15)
[2020-02-13] MEDS: INSULIN LANTUS (GLARGINE) 1 /0.01ml (100units/ml) SC SCH ×2 (06:37→18:23)
[2020-02-13 09:00] VITALS: BP 112/80
[2020-02-13] MEDS: ADVAIR IN SCH ×2 (10:00→21:14)
[2020-02-13] MEDS: MONTELUKAST SODIUM 10 MG TAB PO SCH (10:56)
[2020-02-13] MEDS: PANTOPRAZOLE 40 MG/10 ML VIAL INJ IV SCH (10:56)
[2020-02-13] MEDS: FLUTICASONE PROP NASAL SPR 0.05 % (50MCG) 16GM EACHNOSTRI SCH (10:57)
[2020-02-13] MEDS: LORATADINE 10 MG TAB PO SCH (10:57)
[2020-02-13 11:04] LABS: Albumin 2.3 g/dL (3.4-5.0); Calcium 8.3 mg/dL (8.5-10.1); Potassium 4.9 mmol/L (3.5-5.1)
[2020-02-13] MEDS: Glucerna Carbsteady SHAKE Vanilla 8oz PO SCH ×2 (11:07→18:44)
[2020-02-13 11:11] LABS: BUN/Creatinine Ratio 14.3; Bilirubin, Total 0.3 mg/dL (0.2-1.0); Total Protein 7.3 g/dL (6.4-8.2)
[2020-02-13 11:39] LABS: Basophils # (auto) 0.1 10 ^3/uL (0-0.2); Eosinophils # (auto) 0.2 10 ^3/uL (0-0.8); Hematocrit 37.5 % (41.0-53.0); Lymphocytes # (auto) 1.5 10 ^3/uL (0.4-5.4); Monocytes # (auto) 0.3 10 ^3/uL (0-1.3); Neutrophils # (auto) 6.9 10 ^3/uL (1.6-8.6); Red Cell Distribution Width 19.5 % (11.8-14.3)
[2020-02-13 11:41] LABS: Basophils % (auto) 1.1 % (0.0-2.0); Eosinophils % (auto) 2.4 % (0.0-7.0); Hemoglobin 12.2 g/dL (13.5-17.5); Lymphocytes % (auto) 16.9 % (10.0-50.0); Mean Corpuscular Hemoglobin 28.2 pg (28.0-32.0); Mean Corpuscular Hgb Conc. 32.5 g/dL (32.0-36.0); Mean Corpuscular Volume 86.7 fL (80.0-100.0); Monocytes % (auto) 3.7 % (0.0-12.0); Neutrophils % (auto) 75.9 % (37.0-80.0); Nucleated Red Blood Cells % 0.1 %; Platelet Count (auto) 474 10^3/uL (140-450); Red Blood Cells 4.32 10^6/uL (4.5-5.90); White Blood Cell 9.1 10^3/uL (4.4-10.8)
[2020-02-13 13:00] VITALS: BP 122/84
--- NOTE | 2020-02-13 14:00 | NUR ---
Meng catheter dc'd Order to discontinue meng catheter. Meng dc'd with clean technique following deflation of balloon. Patient tolerated well with no complaints of pain. Addendum: 02/13/20 at 1914 by Charla Calhoun RN *1600 urine output 275mls yellow urine, clear.
--- NOTE | 2020-02-13 14:22 | NUR ---
Nutrition Follow-up Notes Wt.: 76.6 kg Pt is currently on mechanical soft diet along with Glucerna 1 carton bid tolerating well, with adequate PO 75-100% per RN doc. per records pt s/p tach Est. Needs BW 81 [id number] kcals (20-25 kcal/kgBW). 101-126 gms/day (1.2-1.5 gm/kgBW low prealb). Will continue to monitor pertinent labs and reassess nutrient need prn. Labs: No new labs today POC GLU 141H H Skin: Irwin scale 17 mod risk, pt with pressure ulcers per braid cutter. refer to WC notes for details GI: Pt had 1 BM 02/11 per braid cutter. PES: Altered nutrition related lab values r/t current medical condition aeb hyponatremia, elevated RFTs, hyperglycemia, hypocalcemia, elevated bilirubin severe hypoalbuminemia Will continue to monitor PO intake, skin status, pertinent labs and weight trend. F/u in 3-5 days. Rec.: 1.) consider CCHO 60 gm along with current diet as pt with elev blood glu. 2) Continue current plan of care.
[2020-02-13 16:58] VITALS: BP 112/70
--- NOTE | 2020-02-13 19:00 | NUR ---
closing unit tender Patient is comfortably resting in bed. No s/s of distress/sob noted/stated. Bed at lowest locked position and call light within reach. Will endorse care to NOC RN.
--- NOTE | 2020-02-13 19:20 | NUR ---
Opening Shift Note Assumed care of patient, awake and alert. No S/S of distress/SOB or pain. Patient eating dinner. Instructed on POC and to call for assist PRN, will continue to monitor for changes Q1hr and PRN.
[2020-02-13] MEDS: TEMAZEPAM 15 MG CAP PO PRN (21:15)
[2020-02-13 22:03] VITALS: BP 113/77
--- NOTE | 2020-02-13 22:16 | NUR ---
BM Patient had a BM, cleaned and changed.
[2020-02-14 05:21] VITALS: BP 118/75
[2020-02-14] MEDS: LACTULOSE 20Gm/30ML SOLN PO SCH ×4 (06:00→21:46)
[2020-02-14] MEDS: INSULIN LANTUS (GLARGINE) 1 /0.01ml (100units/ml) SC SCH ×2 (06:36→17:56)
[2020-02-14] MEDS: METOCLOPRAMIDE HCL 5MG/ml INJ 2ml VIAL IV SCH ×3 (06:36→21:46)
[2020-02-14] MEDS: ACCU-CHEK COMFORT CURVE STRIP VI SCH ×4 (06:38→21:47)
[2020-02-14] MEDS: InsuLIN REG 1unit/0.01ml Soln (100units/ml) SC SCH ×4 (06:38→21:48)
--- NOTE | 2020-02-14 07:04 | NUR ---
CLOSING NOTES Patient awake and alert. No S/S of distress/SOB or pain. Two guards at bedside.
--- NOTE | 2020-02-14 07:45 | NUR ---
Opening Shift Note Assumed care of patient, comfortably resting, breath sounds even and unlabored. Instructed on POC and to call for assist PRN. Bed at lowest locked position and call light within reach. Will continue to monitor for changes Q1hr and PRN.
--- NOTE | 2020-02-14 08:10 | NUR ---
Respiratory note: PT AWAKE, AND ALERT. NO RESPIRATORY DISTRESS NOTED AT THIS TIME. SPO2 99% ON 2L NC, HR 102, RR 18, BS CLEAR/DIMINISHED BILATERALLY. PRN MEDNEB TX NOT INDICATED AT THIS TIME. SX FOR SCANT AMOUNT OF THICK, WHITE SECRETIONS. GAG REFLEX NOTED. OFFICERS AT BEDSIDE. WILL CONTINUE TO MONITOR PT. PT INFORMED TO PUSH CALL BUTTON IF INCREASED WOB, SOB, OR WHEEZING OCCURS
[2020-02-14 09:00] VITALS: BP 112/82
[2020-02-14] MEDS: ADVAIR IN SCH ×2 (10:00→21:48)
--- NOTE | 2020-02-14 10:35 | NUR ---
Respiratory note: TOOK SPEAKING VALVE OFF AND PLACED ON TRACH COLLAR 35% COOL AEROSOL. PT IS COMFORTABLY SLEEPING. NO DISTRESS NOTED. SPO2 96%
[2020-02-14] MEDS: LORATADINE 10 MG TAB PO SCH (10:43)
[2020-02-14] MEDS: PANTOPRAZOLE 40 MG/10 ML VIAL INJ IV SCH (10:43)
[2020-02-14] MEDS: MONTELUKAST SODIUM 10 MG TAB PO SCH (10:43)
[2020-02-14] MEDS: FLUTICASONE PROP NASAL SPR 0.05 % (50MCG) 16GM EACHNOSTRI SCH (10:44)
[2020-02-14] MEDS: Glucerna Carbsteady SHAKE Vanilla 8oz PO SCH ×2 (10:52→18:22)
[2020-02-14 13:00] VITALS: BP 118/79
[2020-02-14] MEDS: DIGOXIN (250MCG/ML) 2 ML AMPULE IV SCH (13:34)
[2020-02-14 13:50] VITALS: BP 118/75
[2020-02-14 17:00] VITALS: BP 120/77
--- NOTE | 2020-02-14 19:10 | NUR ---
closing shift manager Patient is comfortably resting in bed. No s/s of distress/sob noted/stated. Bed at lowest locked position and call light within reach. Care endorsed to NOC RN.
--- NOTE | 2020-02-14 19:30 | NUR ---
Opening Note Assumed care of patient, awake and alert. Patient has the valve that allows him to speak, he is tolerating well. No S/S of distress/SOB or pain. Instructed on POC and to call for assist as needed, will continue to monitor.
--- NOTE | 2020-02-14 20:43 | NUR ---
Respiratory note: PT AWAKE, AND ALERT. NO RESPIRATORY DISTRESS NOTED AT THIS TIME. SPO2 100% ON 2L NC, HR 102, RR 18, BS CLEAR/DIMINISHED BILATERALLY. PRN MEDNEB TX NOT INDICATED AT THIS TIME. NO SUCTION NEEDED AT THIS TIME. OFFICERS AT BEDSIDE. WILL CONTINUE TO MONITOR PT. PT INFORMED TO PUSH CALL BUTTON IF INCREASED WOB, SOB, OR WHEEZING OCCURS. PT IS NOT READY FOR SPEAKING VALVE TO BE TAKEN OFF YET. WILL CONTINUE TO MONITOR.
[2020-02-14] MEDS: TEMAZEPAM 15 MG CAP PO PRN (21:47)
--- NOTE | 2020-02-14 22:11 | NUR ---
Patient Comfortable, medications given, paged RT, patient is ready to take off the speaking valve.
[2020-02-14 23:15] VITALS: BP 109/74
--- NOTE | 2020-02-15 01:24 | NUR ---
Rounds Patient resting, no S/S of distress/SOB. Will cont to monitor.
[2020-02-15 05:34] VITALS: BP 108/74
--- NOTE | 2020-02-15 05:34 | NUR ---
Patient awake, alert and oriented, B/S 67, patient asymptomatic. Paged RT to place the valve on the patient so he could drink his ensure.
--- NOTE | 2020-02-15 05:53 | NUR ---
Patient had 2 orange juice, does not want to recheck his blood sugar, he said he feels fine. Educated patient on importance of checking his blood sugar levels. Patient verbalized understanding.
[2020-02-15] MEDS: METOCLOPRAMIDE HCL 5MG/ml INJ 2ml VIAL IV SCH ×3 (05:56→22:11)
[2020-02-15] MEDS: LACTULOSE 20Gm/30ML SOLN PO SCH ×4 (05:56→22:00)
[2020-02-15] MEDS: ACCU-CHEK COMFORT CURVE STRIP VI SCH ×4 (05:56→22:12)
[2020-02-15] MEDS: InsuLIN REG 1unit/0.01ml Soln (100units/ml) SC SCH ×4 (05:57→22:00)
[2020-02-15] MEDS: INSULIN LANTUS (GLARGINE) 1 /0.01ml (100units/ml) SC SCH ×2 (05:57→17:59)
--- NOTE | 2020-02-15 06:05 | NUR ---
Respiratory note: PT TAKEN OFF COOL AEROSOL TRACH MASK. PT PMV WAS PLACED AND PT WAS PLACED ON 2 LPM NC. PT TOLERATING WELL. IN NO DISTRESS AT THIS TIME. SP02 AFTER CHANGE WAS 98%.
[2020-02-15] MEDS: Glucerna Carbsteady SHAKE Vanilla 8oz PO SCH ×2 (08:00→17:52)
[2020-02-15 09:11] VITALS: BP 106/74
[2020-02-15] MEDS: ADVAIR IN SCH ×2 (10:00→22:00)
[2020-02-15] MEDS: PANTOPRAZOLE 40 MG/10 ML VIAL INJ IV SCH (10:57)
[2020-02-15] MEDS: MONTELUKAST SODIUM 10 MG TAB PO SCH (10:58)
[2020-02-15] MEDS: LORATADINE 10 MG TAB PO SCH (10:59)
[2020-02-15] MEDS: FLUTICASONE PROP NASAL SPR 0.05 % (50MCG) 16GM EACHNOSTRI SCH (11:00)
[2020-02-15 12:16] VITALS: BP 114/77
--- NOTE | 2020-02-15 16:05 | NUR ---
Patient ambulating with stand by assist and walker, accompanied by P.T. Patient tolerating well no distress or sob noted.
[2020-02-15 16:17] VITALS: BP 119/79
--- NOTE | 2020-02-15 17:15 | NUR ---
Patient had incontinent episode complete linen change performed. Patient encouraged to use BSC or bedpan and call for assistance he verbalized understanding. Cont care
--- NOTE | 2020-02-15 19:00 | NUR ---
Patient care endorsed endorsed care to Radha gil. Patient sitting up in high Ledezma's position in bed in no acute distress or sob noted. Call light within reach, guards at bedside.
--- NOTE | 2020-02-15 19:10 | NUR ---
Opening Note Assumed care of patient, awake and alert. No S/S of distress/SOB or pain. Instructed on POC and to call for assist when needed, will continue to monitor .
--- NOTE | 2020-02-15 19:31 | NUR ---
Respiratory note: ASSESSMENT FOR PRN MED NEB TX. HR 105, SPO2 98% ON 3L NC, RR 16, BS DIMINISHED. PT PRESENTING NO RESPIRATORY DISTRESS, MED NEB TX NOT INDICATED AT THIS TIME. PT AWARE TO HAVE RT PAGED IF NEEDED, WILL CONTINUE TO MONITOR.
--- NOTE | 2020-02-15 20:21 | NUR ---
Dressing changed performed to Right IJ using aseptic technique.
[2020-02-15 22:00] VITALS: BP 109/76
[2020-02-15] MEDS: TEMAZEPAM 15 MG CAP PO PRN (22:14)
--- NOTE | 2020-02-15 22:50 | NUR ---
Respiratory note: PT TAKEN OF PMV AND PLACED ON 8L 35% COOL AEROSOL FOR NOC. PT REFUSED SUCTION AT THIS TIME, TRACH CARE DONE. RN AWARE PT WAS TAKEN OFF PMV. PT PRESENTING NO RESPIRATORY DISTRESS, CONNECTED TO BEDSIDE PULSE OX. WILL CONTINUE TO MONITOR.
[2020-02-16 05:00] VITALS: BP 117/79
[2020-02-16] MEDS: LACTULOSE 20Gm/30ML SOLN PO SCH ×4 (06:00→21:40)
[2020-02-16] MEDS: ACCU-CHEK COMFORT CURVE STRIP VI SCH ×4 (06:14→21:39)
[2020-02-16] MEDS: METOCLOPRAMIDE HCL 5MG/ml INJ 2ml VIAL IV SCH ×3 (06:14→22:12)
[2020-02-16] MEDS: INSULIN LANTUS (GLARGINE) 1 /0.01ml (100units/ml) SC SCH ×2 (06:33→18:11)
[2020-02-16] MEDS: InsuLIN REG 1unit/0.01ml Soln (100units/ml) SC SCH ×4 (06:33→22:13)
--- NOTE | 2020-02-16 07:10 | NUR ---
PT PLACED ON SPEAKING VALVE AT THIS TIME. TRACH CUFF IS DEFLATED. PT PLACED ON 3LNC, SPO2 95%. NO RESPIRATORY DISTRESS NOTED. ALSO DEEP TRACHEAL SUCTIONED X 2 FOR MODERATE CLEAR SECRETIONS. RN AT BEDSIDE.
--- NOTE | 2020-02-16 07:30 | NUR ---
Opening Note Assumed patient care from NGHIA RN.
[2020-02-16] MEDS: Glucerna Carbsteady SHAKE Vanilla 8oz PO SCH ×2 (08:00→18:00)
[2020-02-16 08:33] VITALS: BP 117/79
--- NOTE | 2020-02-16 09:00 | NUR ---
Dressing Changed Sacral dressing change; wound cleaned and covered with optifoam. Patient tolerated well, no signs of distress at this time, respirations even and unlabored on 3L nasal cannula. Safety precautions in place, will continue to monitor.
[2020-02-16] MEDS: ADVAIR IN SCH ×2 (10:00→21:39)
[2020-02-16] MEDS: FLUTICASONE PROP NASAL SPR 0.05 % (50MCG) 16GM EACHNOSTRI SCH (10:29)
[2020-02-16] MEDS: PANTOPRAZOLE 40 MG/10 ML VIAL INJ IV SCH (10:30)
[2020-02-16] MEDS: MONTELUKAST SODIUM 10 MG TAB PO SCH (10:30)
[2020-02-16] MEDS: LORATADINE 10 MG TAB PO SCH (10:31)
[2020-02-16] MEDS: DIGOXIN (250MCG/ML) 2 ML AMPULE IV SCH (12:28)
[2020-02-16 13:00] VITALS: BP 110/70
--- NOTE | 2020-02-16 13:10 | NUR ---
Nutrition Follow-up Notes Wt.: 77.9 kg Pt is currently on mechanical soft diet along with Glucerna 1 carton bid tolerating well, with adequate PO intake aeb 100% over two meals per RN doc. Pt with no distress. Per records pt s/p tach. Will continue to closely monitor pertinent labs, PO intake and skin status prn. Will followup in 3-5 days Est. Needs BW 81 [id number] kcals (20-25 kcal/kgBW). 101-126 gms/day (1.2-1.5 gm/kgBW low prealb). Will continue to monitor pertinent labs and reassess nutrient need prn. Labs: POC GLU 192 H, A1c 10.8 H, Alb 2.3 L Skin: Irwin scale 18 mod risk, pt with pressure ulcers per tank washer. refer to notes for details GI: Pt had 1 BM 6/ per tank washer. PES: Altered nutrition related lab values r/t current medical condition aeb hyponatremia, elevated RFTs, hyperglycemia, hypocalcemia, elevated bilirubin severe hypoalbuminemia Will continue to monitor PO intake, skin status, pertinent labs and weight trend. F/u in 3-5 days. Rec.: 1.) consider CCHO 60 gm along with current diet as pt with elev blood glu. 2) Continue current plan of care.
--- NOTE | 2020-02-16 15:50 | NUR ---
at Station Dr. Miller at station, no new orders at this time.
[2020-02-16 17:24] VITALS: BP 97/69
--- NOTE | 2020-02-16 19:30 | NUR ---
Opening Shift Note Assumed care of patient, awake and alert. No S/S of distress/SOB or pain. Guards at bedside. Instructed on POC and to call for assist PRN, will continue to monitor for changes Q1hr and PRN.
[2020-02-16 22:00] VITALS: BP 112/73
[2020-02-16] MEDS: TEMAZEPAM 15 MG CAP PO PRN (22:13)
--- NOTE | 2020-02-16 22:35 | NUR ---
Respiratory note: REMOVED SPEAKING VALVE AND PLACED PT ON 35% COOL AEROSOL. PATIENT IS COMFORTABLY SLEEPING, NO RESP DISTRESS NOTED. SPEAKING VALVE PLACED IN RESP DEPT.
[2020-02-17 05:00] VITALS: BP 102/77
--- NOTE | 2020-02-17 05:00 | NUR ---
Optifoam dressing under trach changed. Also suctioned trach per patient request. Suctioned X 2, patient tolerated well.
[2020-02-17] MEDS: LACTULOSE 20Gm/30ML SOLN PO SCH ×4 (06:00→22:00)
[2020-02-17] MEDS: METOCLOPRAMIDE HCL 5MG/ml INJ 2ml VIAL IV SCH ×3 (06:29→22:20)
[2020-02-17] MEDS: INSULIN LANTUS (GLARGINE) 1 /0.01ml (100units/ml) SC SCH ×2 (06:33→17:32)
[2020-02-17] MEDS: InsuLIN REG 1unit/0.01ml Soln (100units/ml) SC SCH ×4 (06:36→22:21)
--- NOTE | 2020-02-17 07:01 | NUR ---
ASSSESSED PT FOR PRN MED NEB, PT AWAKE WITH CLEAR BS NO DISTRESS NOTED ON 8L CA AT 30% FIO2 WITH SPO2 98%, RR 20, HR 102. SPEAKING VALVE IN PLACE. PLACED PT ON 2L NC. SPO2 98%. WILL CONTINUE TO MONITOR PT.
--- NOTE | 2020-02-17 07:30 | NUR ---
Opening Note Assumed patient care from NOC Dov RODRIGUEZ.
[2020-02-17 08:51] VITALS: BP 117/77
[2020-02-17] MEDS: Glucerna Carbsteady SHAKE Vanilla 8oz PO SCH ×2 (09:08→17:16)
[2020-02-17] MEDS: MONTELUKAST SODIUM 10 MG TAB PO SCH (09:21)
[2020-02-17] MEDS: LORATADINE 10 MG TAB PO SCH (09:21)
[2020-02-17] MEDS: PANTOPRAZOLE 40 MG/10 ML VIAL INJ IV SCH (09:22)
[2020-02-17] MEDS: FLUTICASONE PROP NASAL SPR 0.05 % (50MCG) 16GM EACHNOSTRI SCH (09:24)
[2020-02-17] MEDS: ADVAIR IN SCH ×2 (10:00→22:00)
--- NOTE | 2020-02-17 10:33 | NUR ---
WOUND CARE NOTE: Wound care in to see patient for reevaluation of wounds and skin integrity monitoring. Patient continue resting on air bed in Rm. 234. Patient is on O2 via trach . He's able to assist in turning and repositioning. His Irwin score is 18. No reports of pain at this time. Skin/wound assessment done with the assistance of patient's nurse, MICHAEL Wyatt. Upper chest/distal neck mucosal ulcer is much improve, no open wound noted, however site still display mild erythema. He continue receiving BID dressing change to trach site wound. Patient's sacral pressure injury measuring 3x2cm. Wound bed is combination of red granulation tissue, pale pink with yellow slough.Jenise wound is dark red, scant serous drainage noted, no odor noted. Cleansed sacral wound and changed the dressing as ordered. New photograph of wounds are taken for reference. Patient tolerated well. Repositioned patient for comfort, redistributed pressure points with pillows. Guards at bedside. RECOMMENDATION:Continuation of all wound care orders prescribed by MD, continue with skin/wound plan of care, continue monitoring by wound care while patient is hospitalized. Addendum: 02/17/20 at 1800 by Florinda Trujillo RN Amended: Links added.
--- NOTE | 2020-02-17 11:00 | NUR ---
Wound Care at Bedside MICHAEL Neely at bedside. Sacral wound cleaned, honey applied. Optifoam clean, dry, and intact. Will continue to monitor.
[2020-02-17] MEDS: ACCU-CHEK COMFORT CURVE STRIP VI SCH ×2 (12:33→22:20)
[2020-02-17 12:54] VITALS: BP 105/74
[2020-02-17 16:19] VITALS: BP 105/73
--- NOTE | 2020-02-17 16:30 | NUR ---
TRACH CARE DONE WITH NO INCIDENT REPORTED. RN AT BEDSIDE.
--- NOTE | 2020-02-17 17:45 | NUR ---
Trach Care Patient requesting suction and trach care. Trach cleaned per orders. Patient suction, moderate, thick clear drainage noted. Patient tolerated well, RR currently 18, SpO2 99%. Will continue to monitor.
--- NOTE | 2020-02-17 19:36 | NUR ---
Closing Note Report given to NGHIA RODRIGUEZ.
--- NOTE | 2020-02-17 19:40 | NUR ---
Opening Shift Note Assumed care of patient, awake, AAOx4. No S/S of distress/SOB or pain. Guards at bedside. On 3L oxygen. Moderate assist to bedside commode. Bed in lowest locked position, side rails up x2, call light within reach. Instructed on POC and to call for assist PRN, will continue to monitor for changes Q1hr and PRN.
[2020-02-17 22:00] VITALS: BP 118/77
[2020-02-17] MEDS: PANTOPRAZOLE 40 MG TAB PO SCH (22:20)
[2020-02-18 05:00] VITALS: BP 110/76
[2020-02-18] MEDS: LACTULOSE 20Gm/30ML SOLN PO SCH ×4 (05:42→19:18)
[2020-02-18] MEDS: METOCLOPRAMIDE HCL 5MG/ml INJ 2ml VIAL IV SCH ×3 (05:53→20:54)
[2020-02-18] MEDS: InsuLIN REG 1unit/0.01ml Soln (100units/ml) SC SCH ×4 (05:54→20:56)
[2020-02-18] MEDS: INSULIN LANTUS (GLARGINE) 1 /0.01ml (100units/ml) SC SCH ×3 (05:54→17:59)
--- NOTE | 2020-02-18 07:30 | NUR ---
Opening Note Assumed patient care from NGHIA RN.
[2020-02-18 09:00] VITALS: BP 112/70
[2020-02-18] MEDS: ADVAIR IN SCH ×2 (10:00→18:04)
--- NOTE | 2020-02-18 10:00 | NUR ---
at Station Dr. Miller at station, no new orders at this time.
[2020-02-18] MEDS: Glucerna Carbsteady SHAKE Vanilla 8oz PO SCH ×2 (10:16→17:54)
[2020-02-18] MEDS: FLUTICASONE PROP NASAL SPR 0.05 % (50MCG) 16GM EACHNOSTRI SCH (10:16)
[2020-02-18] MEDS: LORATADINE 10 MG TAB PO SCH (10:17)
[2020-02-18] MEDS: PANTOPRAZOLE 40 MG TAB PO SCH ×2 (10:17→20:54)
[2020-02-18] MEDS: MONTELUKAST SODIUM 10 MG TAB PO SCH (10:17)
[2020-02-18] MEDS: ACCU-CHEK COMFORT CURVE STRIP VI SCH ×2 (11:02→20:54)
--- NOTE | 2020-02-18 11:33 | NUR ---
Up with PT Patient ambulated with physical therapy using minimal assistance and a walker. Patient tolerate well, no signs of distress at this time, will continue to monitor.
[2020-02-18 12:34] VITALS: BP_SYST 117; BP_SYST 118; BP_DIAS 43; BP_DIAS 74
[2020-02-18] MEDS: DIGOXIN (250MCG/ML) 2 ML AMPULE IV SCH (13:00)
--- NOTE | 2020-02-18 14:40 | NUR ---
Trach Care and Suction Trach care done using sterile technique. Patient suctioned, minimal clear, thick drainage noted. Patient tolerate well, currently SpO2 at 98%, respirations even and unlabored, no signs of distress at this time, will continue to monitor.
[2020-02-18 16:23] VITALS: BP 109/80
[2020-02-18] MEDS: TEMAZEPAM 15 MG CAP PO PRN (20:55)
[2020-02-18 22:00] VITALS: BP 109/73
--- NOTE | 2020-02-19 00:09 | NUR ---
Patient Rounds Patient currently resting with eyes closed in bed. Respirations at 16, even and unlabored, SpO2 98%. No signs of distress at this time. Will continue to monitor.
[2020-02-19 05:00] VITALS: BP 115/73
[2020-02-19] MEDS: LACTULOSE 20Gm/30ML SOLN PO SCH ×5 (05:59→21:28)
[2020-02-19] MEDS: InsuLIN REG 1unit/0.01ml Soln (100units/ml) SC SCH ×4 (06:09→21:33)
[2020-02-19] MEDS: INSULIN LANTUS (GLARGINE) 1 /0.01ml (100units/ml) SC SCH ×2 (06:10→17:39)
[2020-02-19] MEDS: METOCLOPRAMIDE HCL 5MG/ml INJ 2ml VIAL IV SCH ×3 (06:11→21:28)
--- NOTE | 2020-02-19 07:35 | NUR ---
Respiratory note: At bedside for assessment. Pt with tracheostomy 6.0 Shiley, speaking valve in place, cuff deflated. Stoma is asymptomatic. Spare trach available at bedside. Breath sounds clear/dim, suction not indicated. HR 96, RR 18, SPO2 99% on 3lpm nasal cannula. Pt denies SOB, awake and resting comfortably in bed, no s/s of respiratory distress noted. Medneb tx not indicated at this time. Pt connected to continuous bedside POX monitor. Pt is aware to call for RT if needed. Officers at bedside.
[2020-02-19 08:30] VITALS: BP 108/76
[2020-02-19] MEDS: ADVAIR IN SCH ×2 (10:00→21:35)
[2020-02-19] MEDS: FLUTICASONE PROP NASAL SPR 0.05 % (50MCG) 16GM EACHNOSTRI SCH (10:00)
[2020-02-19] MEDS: LORATADINE 10 MG TAB PO SCH (10:27)
[2020-02-19] MEDS: MONTELUKAST SODIUM 10 MG TAB PO SCH (10:27)
[2020-02-19] MEDS: PANTOPRAZOLE 40 MG TAB PO SCH ×2 (10:27→21:29)
[2020-02-19] MEDS: Glucerna Carbsteady SHAKE Vanilla 8oz PO SCH ×2 (10:27→17:37)
[2020-02-19] MEDS: ACCU-CHEK COMFORT CURVE STRIP VI SCH ×2 (10:28→21:29)
--- NOTE | 2020-02-19 11:22 | NUR ---
ROUNDING MD JUAN AT BEDSIDE. ALL QUESTIONS AND CONCERNS ADDRESSED AT THIS TIME.
--- NOTE | 2020-02-19 11:38 | NUR ---
MD PELAEZ FROM [facility] CALLED FOR UPDATED POC
--- NOTE | 2020-02-19 12:12 | NUR ---
Nutrition Follow-up Notes Wt.: 81.0 kg Pt is currently on mechanical soft diet along with Glucerna 1 carton bid tolerating well, with adequate PO intake aeb 100% days per RN doc. Pt with no distress. Per records pt s/p tach. Will continue to closely monitor pertinent labs, PO intake and skin status prn. Will followup in 3-5 days Est. Needs BW 81 [id number] kcals (20-25 kcal/kgBW). 101-126 gms/day (1.2-1.5 gm/kgBW low prealb). Will continue to monitor pertinent labs and reassess nutrient need prn. Labs: POC GLU 116H, A1c 10.8 H, Alb 2.3 L Skin: Irwin scale 18 mod risk, pt with pressure ulcers per fresh foods technician. refer to notes for details GI: Pt had 1 BM / per fresh foods technician. PES: Altered nutrition related lab values r/t current medical condition aeb hyponatremia, elevated RFTs, hyperglycemia, hypocalcemia, elevated bilirubin severe hypoalbuminemia Will continue to monitor PO intake, skin status, pertinent labs and weight trend. F/u in 3-5 days. Rec.: 1.) consider CCHO 60 gm along with current diet as pt with elev blood glu. 2) Continue current plan of care.
[2020-02-19] MEDS: DIGOXIN (250MCG/ML) 2 ML AMPULE IV SCH (12:19)
[2020-02-19 12:57] VITALS: BP 106/74
--- NOTE | 2020-02-19 14:33 | NUR ---
Respiratory note: Trach care completed without incident. Tracheal suctioned x2 for large thin clear secretions. Pt remains on 3lpm nasal cannula, speaking valve in place, cuff deflated. HR 102, RR 20, SPO2 97%. Pt denies SOB, no s/s of respiratory distress noted. Officers at bedside.
--- NOTE | 2020-02-19 16:03 | NUR ---
Suction Patient suctioned, minimal clear, thick drainage noted. Patient tolerate well, currently SpO2 at 98%, respirations even and unlabored, no signs of distress at this time, will continue to monitor.
--- NOTE | 2020-02-19 16:45 | NUR ---
Respiratory note: Called to bedside, pt requesting suction. Tracheal suctioned x2 for large thin clear secretions, and cleaned inner cannula without incident. Speaking valve placed back on, no s/s of respiratory distress. SPO2 97% on 3lpm nasal cannula.
[2020-02-19 16:48] VITALS: BP 110/71
--- NOTE | 2020-02-19 17:55 | NUR ---
Suction Patient suctioned, minimal clear, thick drainage noted. Patient tolerate well, currently SpO2 at 100%, respirations even and unlabored, no signs of distress at this time, will continue to monitor.
--- NOTE | 2020-02-19 20:25 | NUR ---
ASSUMED CARE OF PATIENT
--- NOTE | 2020-02-19 20:30 | NUR ---
Opening Shift Note Assumed care of patient, awake and alert. No S/S of distress/SOB. Fall, aspiration, and safety precautions in place. Guards at bedside. Instructed on POC and to call for assist PRN, patient verbalized understanding and in agreement. Patient repositioned for comfort. Will continue to monitor for changes Q1hr and PRN.
[2020-02-19] MEDS: HYDROcodone-ACET 10/325MG TAB PO PRN (21:29)
[2020-02-19] MEDS: TEMAZEPAM 15 MG CAP PO PRN (21:30)
[2020-02-19 22:00] VITALS: BP 114/71
[2020-02-20] MEDS: ONDANSETRON HCL 4 MG/2 ML VIAL IV PRN (02:30)
--- NOTE | 2020-02-20 02:30 | NUR ---
Re: Nausea/Emesis Patient has episode of small amount of emesis <200ml of light green clear fluid collected by patient in emesis bag. Patient states he feels nauseous. Offered patient prn, patient verbalized understanding and in agreement. Per MD order, patient given prn (see emar for documentation). Will continue to monitor.
--- NOTE | 2020-02-20 03:00 | NUR ---
NAUSEA REASSESSMENT PATIENT RETURNS TO BED INDEPENDENTLY / STAND-BY ASSISTANCE FROM BEDSIDE COMMODE TO BED. PATIENT HAS MODERATE TO LARGE BOWEL MOVEMENT BROWN, SOFT. PATIENT DENIES NAUSEA AND FURTHER EMESIS. PATIENT STATES HE FEELS BETTER AFTER PRN AND HAVING BOWEL MOVEMENT. WILL CONTINUE TO MONITOR.
[2020-02-20 04:58] VITALS: BP 102/66
[2020-02-20] MEDS: LACTULOSE 20Gm/30ML SOLN PO SCH ×4 (06:00→22:00)
[2020-02-20] MEDS: METOCLOPRAMIDE HCL 5MG/ml INJ 2ml VIAL IV SCH ×3 (06:00→22:20)
[2020-02-20] MEDS: INSULIN LANTUS (GLARGINE) 1 /0.01ml (100units/ml) SC SCH ×2 (06:16→17:19)
[2020-02-20] MEDS: InsuLIN REG 1unit/0.01ml Soln (100units/ml) SC SCH ×4 (06:17→22:00)
--- NOTE | 2020-02-20 07:38 | NUR ---
Opening Shift Note Assumed care of patient, awake, AAOx4. No S/S of distress/SOB or pain. Guards at bedside. On 3L oxygen. Bed in lowest locked position, side rails up x2, call light within reach. Instructed on POC and to call for assist PRN, will continue to monitor for changes Q1hr and PRN
[2020-02-20] MEDS: Glucerna Carbsteady SHAKE Vanilla 8oz PO SCH ×2 (08:00→17:18)
[2020-02-20 08:34] VITALS: BP 106/72
[2020-02-20] MEDS: FLUTICASONE PROP NASAL SPR 0.05 % (50MCG) 16GM EACHNOSTRI SCH (10:00)
[2020-02-20] MEDS: ADVAIR IN SCH ×2 (10:00→22:00)
--- NOTE | 2020-02-20 12:10 | NUR ---
BLOOD SUGAR 81. PT IS ASYMPTOMATIC. PT ENCOURAGED TO EAT LUNCH. PT STATES "I CANT, IT IS NOT GOOD" PT BROUGHT CHICKEN BROTH, CRACKER AND JELLO. PT ATE 100%
[2020-02-20] MEDS: PANTOPRAZOLE 40 MG TAB PO SCH ×2 (12:20→22:20)
[2020-02-20] MEDS: LORATADINE 10 MG TAB PO SCH (12:20)
[2020-02-20] MEDS: MONTELUKAST SODIUM 10 MG TAB PO SCH (12:20)
[2020-02-20] MEDS: ACCU-CHEK COMFORT CURVE STRIP VI SCH ×2 (12:20→22:19)
[2020-02-20 12:33] VITALS: BP 107/68
--- NOTE | 2020-02-20 14:45 | NUR ---
Pt declined PT treatment today stating he does not feel well. Pt was encouraged to perform BLE exercises in bed to prevent strength decline. Will attempt again tomorrow.
--- NOTE | 2020-02-20 15:18 | NUR ---
RT NOTE: NO TX INDICATED AT THIS TIME. NO SIGNS OF RESPIRATORY DISTRESS NOTED AT THIS TIME. TRACH CARE DONE. SMALL YELLOW DRAINAGE NOTED. CUFF IS DEFLATED DUE TO PMV BEING IN PLACE. PT C/O ABDOMINAL PAIN AND OVER-ALL RUN-DOWN FEELING. RN IS AWARE. WILL CONTINUE TO MONITOR.
[2020-02-20 16:19] VITALS: BP 107/68
[2020-02-20 16:34] VITALS: BP 116/76
--- NOTE | 2020-02-20 17:00 | NUR ---
OPAL HELD PT BLOOD SUGAR 102
--- NOTE | 2020-02-20 19:26 | NUR ---
Opening Shift Note Assumed care of patient, awake and alert x 4. No S/S of distress/SOB. Bed is in lowest position and locked. Call light within reach. Board updated. Tele box number matches monitor and leads are in correct placement. Trach is in correct positioning and patient is breathing without difficulty. Suction at bedside. Patient cuffed to side rail by left wrist and to end of bed by bilateral ankles. No signs of skin breakdown, edema, or loss of circulation noted at these areas. Instructed on POC and to call for assist PRN, will continue to monitor for changes Q1hr and PRN.
--- NOTE | 2020-02-20 21:58 | NUR ---
Dressing change performed. Cleansed wound with wound cleanser, applied therahoney, and covered wound with optifoam
[2020-02-20 22:00] VITALS: BP 105/69
--- NOTE | 2020-02-20 22:18 | NUR ---
Patient refused Lactulose and Regular Insulin. Patient refused Regular Insulin per sliding scale for blood glucose of 143 mg/dl. He states he is worried his blood glucose level will drop in the night with insulin. I educated him on importance of glucose control during times of illness but patient still refused. Patient refused Lactulose for constipation because he has been having regular bowel movements and does not like the cramping the medication causes. Addendum: 02/21/20 at 0153 by BYRON POZO RN Patient is not receiving lactulose for elevated ammonia.
[2020-02-20] MEDS: TEMAZEPAM 15 MG CAP PO PRN (22:20)
--- NOTE | 2020-02-20 22:26 | NUR ---
Suction performed using sterile technique. Small amount of white, thick secretions noted. Patient's oxygen saturation is currently 97% on 2 l/min NC. Patient tolerated well.
--- NOTE | 2020-02-20 23:37 | NUR ---
MD Stapleton in to see patient. No new orders given.
--- NOTE | 2020-02-21 01:06 | NUR ---
Deep suction performed using sterile technique. Small, thick white secretions noted at suction. Patient tolerated well. RT Dov cleaned trach catheter using sterile technique with sterile saline and hydrogen peroxide mix. Dressing around trach changed at this time. Some minor erythema noted around trach borders. Catheter returned to trachea and secured after cleaning. Patient tolerated well.
[2020-02-21 04:58] VITALS: BP 111/71
[2020-02-21] MEDS: LACTULOSE 20Gm/30ML SOLN PO SCH ×4 (06:00→22:00)
[2020-02-21] MEDS: METOCLOPRAMIDE HCL 5MG/ml INJ 2ml VIAL IV SCH ×3 (06:19→22:09)
[2020-02-21] MEDS: InsuLIN REG 1unit/0.01ml Soln (100units/ml) SC SCH ×4 (06:28→22:00)
[2020-02-21] MEDS: INSULIN LANTUS (GLARGINE) 1 /0.01ml (100units/ml) SC SCH ×2 (06:30→17:52)
--- NOTE | 2020-02-21 07:25 | NUR ---
Opening shift note Assumed care of patient from NOC RN ricci. Patient is AOx4 no signs and symptoms of distress noted. Bed is in lowest locked position, side rails up x2, call light with in reach and 2 guards at bedside. Updated patient on plan of care and patient verbalized understanding. I will continue to monitor q1hr an PRN.
[2020-02-21 08:00] VITALS: BP 115/75
--- NOTE | 2020-02-21 09:10 | NUR ---
Respiratory note: ASSESSED PT FOR PRN TX PATIENT WAS AWAKE AND ALERT, NO RESP DISTRESS NOTED. HR 98, RR 16, SPO2 97% ON ROOM AIR. PT WAS REQUESTING A NEW NASAL CANNULA BECAUSE HIS CANNULA FELL ON THE FLOOR. NO INDICATION FOR TX AT THIS TIME. PATIENT KNOWS TO HAVE RT PAGED IF TX IS NEEDED.
[2020-02-21] MEDS: ADVAIR IN SCH ×2 (10:00→22:00)
[2020-02-21] MEDS: FLUTICASONE PROP NASAL SPR 0.05 % (50MCG) 16GM EACHNOSTRI SCH (10:00)
--- NOTE | 2020-02-21 11:00 | NUR ---
Patient not requesting suctioning Asked patient if he felt that suctioning was needed. Per patient he verbalized not needing suctioning at the moment, patient stated " I will tell you when I want to be suctioned". Educated patient on the importance of suctioning, patient verbalized understanding. Patient is currently on 3L of oxygen via nasal cannula, saturation is at 95%. No s/s of distress noted.
[2020-02-21] MEDS: LORATADINE 10 MG TAB PO SCH (11:09)
[2020-02-21] MEDS: PANTOPRAZOLE 40 MG TAB PO SCH ×2 (11:09→22:10)
[2020-02-21] MEDS: Glucerna Carbsteady SHAKE Vanilla 8oz PO SCH ×2 (11:10→18:48)
[2020-02-21] MEDS: MONTELUKAST SODIUM 10 MG TAB PO SCH (11:10)
[2020-02-21] MEDS: ACCU-CHEK COMFORT CURVE STRIP VI SCH ×2 (11:15→22:10)
[2020-02-21 12:00] VITALS: BP 120/72
[2020-02-21] MEDS: DIGOXIN (250MCG/ML) 2 ML AMPULE IV SCH (12:25)
[2020-02-21 17:00] VITALS: BP 112/80
--- NOTE | 2020-02-21 17:15 | NUR ---
Patient not requesting suctioning Asked patient if he felt that suctioning was needed. Per patient stated " I am okay, I will let you know when I want suction. Respiratory therapy changed my dressing, and I am okay right now". Educated patient on the importance of suctioning, patient verbalized understanding. Patient is currently on 3L of oxygen via nasal cannula, saturation is at 98%. No s/s of distress noted. I will continue to monitor q1hr and PRN.
--- NOTE | 2020-02-21 18:02 | NUR ---
physician rounding Dr. Miller at bedside, updated him on patient status. no new orders received.
--- NOTE | 2020-02-21 19:10 | NUR ---
End of shift note Endorsed care of patient to NOC MICHAEL Mendoza. No s/s of distress noted at this time.
[2020-02-21] MEDS: ONDANSETRON HCL 4 MG/2 ML VIAL IV PRN ×2 (19:26→23:12)
[2020-02-21] MEDS: HYDROcodone-ACET 10/325MG TAB PO PRN ×2 (19:27→23:12)
--- NOTE | 2020-02-21 21:24 | NUR ---
Dressing change performed. Removed old dressing and cleaned wound with wound cleanser. Applied therahoney to medial sacrum pressure ulcer. New Optifoam placed over wound with initials, date, and time written on bandage.
[2020-02-21 22:00] VITALS: BP 106/71
--- NOTE | 2020-02-21 22:09 | NUR ---
Patient refused Lactulose and Regular Insulin. Patient refused Regular Insulin per sliding scale for blood glucose of 156 mg/dl. He states he is worried his blood glucose level will drop in the night with insulin. I educated him on importance of glucose control during times of illness but patient still refused. Patient refused Lactulose for constipation because he has been having regular bowel movements and does not like the cramping the medication causes.
--- NOTE | 2020-02-21 22:48 | NUR ---
Called and spoke to MD Miller. Patient is reporting sudden pulsating abdominal pain and pressure in his medial abdomen, 9 out of 10. Patient is concerned that something is wrong in his intestines. Bowel sounds are active. Patient also reports passing very little flatus and has not had BM since 02/19. MD Miller made aware of this. No orders given.
[2020-02-21] MEDS: DOCUSATE ORAL LIQUID 100 MG/10 ML UD GT PRN (23:11)
[2020-02-21] MEDS: TEMAZEPAM 15 MG CAP PO PRN (23:12)
--- NOTE | 2020-02-22 04:36 | NUR ---
patient reports pain has dropped to low 3 out of 10 in her medial abdomen and is tolerable for patient.
[2020-02-22 05:33] VITALS: BP 107/69
[2020-02-22] MEDS: LACTULOSE 20Gm/30ML SOLN PO SCH ×4 (06:00→21:41)
[2020-02-22] MEDS: InsuLIN REG 1unit/0.01ml Soln (100units/ml) SC SCH ×4 (06:29→21:41)
[2020-02-22] MEDS: METOCLOPRAMIDE HCL 5MG/ml INJ 2ml VIAL IV SCH ×3 (06:29→21:29)
[2020-02-22] MEDS: Glucerna Carbsteady SHAKE Vanilla 8oz PO SCH ×2 (06:29→18:00)
[2020-02-22] MEDS: INSULIN LANTUS (GLARGINE) 1 /0.01ml (100units/ml) SC SCH ×2 (06:30→18:39)
--- NOTE | 2020-02-22 06:38 | NUR ---
Sterile dressing change performed for right IJ triple lumen catheter. Sutures intact. Skin around site is normal tone and is intact. Patient tolerated well.
--- NOTE | 2020-02-22 07:20 | NUR ---
RT NOTE: PRN BREATING TX. NOT INDICATED AT THIS TIME. PT. SLEEPING. NO SIGNS OF RESPIRATORY DISTRESS NOTED. GUARDS ARE AT BEDSIDE. PT. HR. 94, RR 18, POX 99% 2L NC.
[2020-02-22 09:00] VITALS: BP 109/77
[2020-02-22] MEDS: ACCU-CHEK COMFORT CURVE STRIP VI SCH ×2 (10:00→21:29)
[2020-02-22] MEDS: ADVAIR IN SCH ×2 (10:00→21:40)
[2020-02-22] MEDS: LORATADINE 10 MG TAB PO SCH (10:39)
[2020-02-22] MEDS: FLUTICASONE PROP NASAL SPR 0.05 % (50MCG) 16GM EACHNOSTRI SCH (10:39)
[2020-02-22] MEDS: PANTOPRAZOLE 40 MG TAB PO SCH ×2 (10:39→21:29)
[2020-02-22] MEDS: MONTELUKAST SODIUM 10 MG TAB PO SCH (10:39)
--- NOTE | 2020-02-22 10:59 | NUR ---
Nutrition Follow-up Notes Wt.: 80.8 kg Pt is currently on mechanical soft diet along with Glucerna 1 carton bid tolerating well, with adequate PO intake aeb 100% x 3days per RN doc. Pt not in room at time of rounds this morning. Will continue to closely monitor pertinent labs, PO intake and skin status prn. Will followup in 3-5 days Est. Needs BW 81 [id number] kcals (20-25 kcal/kgBW). 101-126 gms/day (1.2-1.5 gm/kgBW low prealb). Will continue to monitor pertinent labs and reassess nutrient need prn. Labs: POC GLU 115H, A1c 10.8 H, Alb 2.3 L Skin: Irwin scale 18 mod risk, pt with pressure ulcers per regulatory law specialist. refer to notes for details GI: Pt had 3 BM 02/19 per regulatory law specialist. PES: Altered nutrition related lab values r/t current medical condition aeb hyponatremia, elevated RFTs, hyperglycemia, hypocalcemia, elevated bilirubin severe hypoalbuminemia Will continue to monitor PO intake, skin status, pertinent labs and weight trend. F/u in 3-5 days. Rec.: 1.) consider CCHO 60 gm along with current diet as pt with elev blood glu. 2) Continue current plan of care.
[2020-02-22 13:00] VITALS: BP 110/75
--- NOTE | 2020-02-22 16:50 | NUR ---
RT NOTE: TRACH CARE PERFORMED BY STERILE PROCEDURE WITHOUT INCIDENT. INNER CANNULA CLEANED AND DRAIN SPONGE CHANGED.
[2020-02-22 16:57] VITALS: BP 107/71
--- NOTE | 2020-02-22 19:15 | NUR ---
Opening Shift Note Patient awake laying supine w/ HOB at 30 degrees. No distress or SOB. Patient is AOx4, bed in lowest position, and call light within reach. Will continue to monitor.
--- NOTE | 2020-02-22 19:20 | NUR ---
Patient complaining he has "something in his chest." Patient trying to cough, but not successful. RT paged and came to bedside, and performed breathing treatment and suctioning.
--- NOTE | 2020-02-22 19:25 | NUR ---
Respiratory note: ASSESSMENT FOR PRN MED NEB TX. PT SITTING UP IN BED TALKING TO GUARD. NO RESPIRATORY DISTRESS NOTED. HR 97, SPO2 98% ON 2L NC, RR 20, COARSE B/S. PT AWARE OF MED NEB TX AND TO HAVE RT PAGED IF NEEDED. WILL CONTINUE TO MONITOR.
[2020-02-22] MEDS: TEMAZEPAM 15 MG CAP PO PRN (21:47)
[2020-02-22 22:00] VITALS: BP 107/68
[2020-02-23 05:00] VITALS: BP 114/70
[2020-02-23] MEDS: INSULIN LANTUS (GLARGINE) 1 /0.01ml (100units/ml) SC SCH ×2 (05:54→15:45)
--- NOTE | 2020-02-23 06:00 | NUR ---
OPAL HELD PT BLOOD SUGAR 76
[2020-02-23] MEDS: LACTULOSE 20Gm/30ML SOLN PO SCH ×4 (06:04→20:55)
[2020-02-23] MEDS: METOCLOPRAMIDE HCL 5MG/ml INJ 2ml VIAL IV SCH ×3 (06:04→20:46)
[2020-02-23] MEDS: InsuLIN REG 1unit/0.01ml Soln (100units/ml) SC SCH (06:17)
--- NOTE | 2020-02-23 07:30 | NUR ---
Opening Shift Note RECEIVED REPORT FROM NOC RN. Assumed care of patient, awake and alert. PATIENT ON OXYGEN AT 3 LPM VIA TRACH COLLAR WITH no S/S of distress/SOB or pain. BED IN LOWEST, LOCKED POSITION WITH SIDERAILS UP x2 AND CALL LIGHT WITHIN REACH AND GUARDS AT BEDSIDE. Instructed on POC and to call for assist PRN, will continue to monitor for changes Q1hr and PRN.
--- NOTE | 2020-02-23 07:30 | NUR ---
END OF SHIFT NOTE Endorsed patient care to day shift RN.
[2020-02-23 09:00] VITALS: BP 110/71
[2020-02-23] MEDS: PANTOPRAZOLE 40 MG TAB PO SCH ×2 (09:41→20:47)
[2020-02-23] MEDS: LORATADINE 10 MG TAB PO SCH (09:41)
[2020-02-23] MEDS: ADVAIR IN SCH ×2 (09:41→20:56)
[2020-02-23] MEDS: MONTELUKAST SODIUM 10 MG TAB PO SCH (09:41)
[2020-02-23] MEDS: Glucerna Carbsteady SHAKE Vanilla 8oz PO SCH ×2 (09:42→18:19)
[2020-02-23] MEDS: FLUTICASONE PROP NASAL SPR 0.05 % (50MCG) 16GM EACHNOSTRI SCH (09:42)
[2020-02-23] MEDS: ACCU-CHEK COMFORT CURVE STRIP VI SCH ×2 (10:00→20:47)
[2020-02-23 10:42] VITALS: BP 110/71
[2020-02-23 13:00] VITALS: BP 117/73
[2020-02-23] MEDS: DIGOXIN (250MCG/ML) 2 ML AMPULE IV SCH (13:43)
--- NOTE | 2020-02-23 19:15 | NUR ---
Opening Shift Note patient AOx4, no SOB or distress at this time. HOB at 30 degrees, bed locked in lowest position, call light within reach. Will continue to monitor.
--- NOTE | 2020-02-23 20:30 | NUR ---
Patient complains of pain in right abdominal quadrant 10/10. Pain medication given as prescribed. Will continue to monitor.
[2020-02-23] MEDS: HYDROcodone-ACET 10/325MG TAB PO PRN (20:32)
[2020-02-23] MEDS: TEMAZEPAM 15 MG CAP PO PRN (20:48)
[2020-02-23 22:00] VITALS: BP 121/76
--- NOTE | 2020-02-23 22:20 | NUR ---
Dr. Miller paged at this time for medication concerning patient complaints of increased abdominal pain.
[2020-02-23] MEDS: ONDANSETRON HCL 4 MG/2 ML VIAL IV PRN (22:35)
--- NOTE | 2020-02-23 22:39 | NUR ---
Patient given PRN anti-emetic for nausea and vomiting at this time. Will continue to monitor.
[2020-02-23] MEDS ORDERED: ONDANSETRON HCL 4 MG/2 ML VIAL IV PRN (23:45)
[2020-02-23] MEDS: MORPHINE SULF INJ 2 MG/ML SYRINGE 1ML IV PRN (23:57)
--- NOTE | 2020-02-23 23:57 | NUR ---
Patient complains or right abdominal pain 06/22. New medication orders received from Dr. Miller. Patient given pain medication as prescribed. Will continue to monitor.
[2020-02-24] MEDS: ONDANSETRON HCL 4 MG/2 ML VIAL IV PRN (02:23)
--- NOTE | 2020-02-24 02:26 | NUR ---
Patient given anti-emetic as prescribed for vomiting. Will continue to monitor.
--- NOTE | 2020-02-24 04:28 | NUR ---
PT CHECKED FOR PRN TX. PT IS SLEEPING WITH NO ACUTE DISTRESS NOTED. PRN NOT INDICATED. POX [id number] ON 2LNC
[2020-02-24 05:00] VITALS: BP 110/70
[2020-02-24] MEDS: LACTULOSE 20Gm/30ML SOLN PO SCH ×4 (05:44→22:00)
[2020-02-24] MEDS: METOCLOPRAMIDE HCL 5MG/ml INJ 2ml VIAL IV SCH ×4 (05:44→22:17)
--- NOTE | 2020-02-24 07:44 | NUR ---
OPENING SHIFT NOTE Assumed care of patient. Patient is Awake and alert. No signs and symptoms of distress or SOB noted. Bed is in lowest locked position, side rails up x2, call light with in reach. Guards at bedside. Updated patient on plan of care and patient verbalized understanding. Will continue to monitor Q1hr an PRN.
[2020-02-24 08:58] VITALS: BP 102/70
[2020-02-24] MEDS: ADVAIR IN SCH ×2 (10:00→22:00)
[2020-02-24] MEDS: FLUTICASONE PROP NASAL SPR 0.05 % (50MCG) 16GM EACHNOSTRI SCH (10:37)
[2020-02-24] MEDS: Glucerna Carbsteady SHAKE Vanilla 8oz PO SCH ×2 (10:37→18:25)
[2020-02-24] MEDS: ACCU-CHEK COMFORT CURVE STRIP VI SCH ×2 (10:38→22:18)
[2020-02-24] MEDS: MONTELUKAST SODIUM 10 MG TAB PO SCH (10:39)
[2020-02-24] MEDS: LORATADINE 10 MG TAB PO SCH (10:39)
[2020-02-24] MEDS: PANTOPRAZOLE 40 MG TAB PO SCH ×2 (10:39→22:18)
[2020-02-24] MEDS: INSULIN LANTUS (GLARGINE) 1 /0.01ml (100units/ml) SC SCH (10:47)
--- NOTE | 2020-02-24 12:15 | NUR ---
WOUND CARE NOTE: Wound care in to see patient for reevaluation of wounds and skin integrity monitoring. Patient continue resting on air bed in Rm. 234. He's able to assist in turning and repositioning. He's in no stated pain at this time. His Irwin score is 18. Skin/wound assessment done with the assistance of patient's nurse, MICHAEL Goncalves. Upper chest/distal neck mucosal ulcer continue to improve, no open wound noted other than mild erythema. Staff/RT providing routine trach care and padded chest with gauze. Patient's sacral pressure injury measuring 3x2cm. Wound bed is red with granulation tissue, pale pink at edges, with dark red salvador wound, no drainage/ odor noted. Cleansed sacral wound and changed the dressing as ordered. New photograph of wounds are taken for reference. Patient tolerated well. Repositioned patient for comfort, facing his Lt side, redistributed pressure points with pillows. Guards at bedside. RECOMMENDATION:Continuation of all wound care orders prescribed by MD, continue with skin/wound plan of care, continue monitoring by wound care while patient is hospitalized. Addendum: 02/24/20 at 1636 by Florinda Trujillo RN Amended: Links added.
[2020-02-24 13:00] VITALS: BP 110/73
[2020-02-24 16:52] VITALS: BP 106/68
--- NOTE | 2020-02-24 19:26 | NUR ---
Opening Shift Note Assumed care of patient, awake and alert. Patient is currently in bed with the rails up x2. Bed is locked in the lowest position and the call light is within reach. No S/S of distress/SOB or pain. Instructed on POC and to call for assist as needed. Guards at bedside.Will continue to monitor.
[2020-02-24 21:40] VITALS: BP 110/67
[2020-02-24] MEDS: TEMAZEPAM 15 MG CAP PO PRN (22:18)
--- NOTE | 2020-02-24 22:31 | NUR ---
RT PRIYA Addendum: 02/24/20 at 2234 by Dashawn Dodge RT INCOMPLETE
--- NOTE | 2020-02-24 22:31 | NUR ---
RT NOTE: TRACH CARE PERFORMED, PT ON 3LPM NC SPO2 97%. BS CLEAR. TRACH AREA CLEAN WITH SOME REDNESS UNDER TRACH SITE. INNER CANULA CLEANED AND TRACHEAL SPONGES REPLACED. PT HAS PMV IN PLACE AND WANTS TO KEEP IT ON AT THIS TIME.
[2020-02-25] MEDS: MORPHINE SULF INJ 2 MG/ML SYRINGE 1ML IV PRN ×5 (02:00→22:33)
[2020-02-25 05:00] VITALS: BP 113/79
[2020-02-25] MEDS: METOCLOPRAMIDE HCL 5MG/ml INJ 2ml VIAL IV SCH ×3 (06:00→22:32)
[2020-02-25] MEDS: LACTULOSE 20Gm/30ML SOLN PO SCH ×4 (06:00→22:00)
[2020-02-25] MEDS: Glucerna Carbsteady SHAKE Vanilla 8oz PO SCH ×2 (07:49→18:42)
[2020-02-25 08:37] VITALS: BP 109/71
[2020-02-25] MEDS: ADVAIR IN SCH ×2 (10:00→22:00)
[2020-02-25] MEDS: FLUTICASONE PROP NASAL SPR 0.05 % (50MCG) 16GM EACHNOSTRI SCH (10:42)
[2020-02-25] MEDS: ACCU-CHEK COMFORT CURVE STRIP VI SCH ×2 (10:44→22:40)
[2020-02-25] MEDS: ONDANSETRON HCL 4 MG/2 ML VIAL IV PRN (10:45)
[2020-02-25] MEDS: INSULIN LANTUS (GLARGINE) 1 /0.01ml (100units/ml) SC SCH (10:47)
[2020-02-25 13:00] VITALS: BP 117/75
[2020-02-25] MEDS: MONTELUKAST SODIUM 10 MG TAB PO SCH (13:02)
[2020-02-25] MEDS: PANTOPRAZOLE 40 MG TAB PO SCH ×2 (13:03→22:34)
[2020-02-25] MEDS: LORATADINE 10 MG TAB PO SCH (13:04)
[2020-02-25] MEDS: DIGOXIN (250MCG/ML) 2 ML AMPULE IV SCH (13:13)
[2020-02-25 17:00] VITALS: BP 103/67
--- NOTE | 2020-02-25 19:13 | NUR ---
OPENING SHIFT NOTE Resumed care of patient. Patient is Awake and alert. No signs and symptoms of distress or SOB noted. Guards at bedside. Bed is in lowest locked position, side rails up x2, call light with in reach. Updated patient on plan of care and patient verbalized understanding. Will continue to monitor Q1hr and PRN.
[2020-02-25 21:47] VITALS: BP 117/63
[2020-02-25] MEDS: TEMAZEPAM 15 MG CAP PO PRN (22:34)
--- NOTE | 2020-02-25 22:50 | NUR ---
RT NOTE: TRACH CARE PERFORMED, PT ON 2LPM NC SPO2 97%. PT REQUESTING TO BE SUCTIONED. BS CLEAR. TRACH AREA CLEAN WITH SOME REDNESS UNDER TRACH SITE. INNER CANULA CLEANED AND TRACHEAL SPONGES REPLACED. PT HAS PMV IN PLACE AND WANTS TO KEEP IT ON AT THIS TIME.
--- NOTE | 2020-02-26 01:35 | NUR ---
wound care wound care provided to sacral area, OptiFoam change per md order
[2020-02-26 05:00] VITALS: BP 98/70
[2020-02-26] MEDS: LACTULOSE 20Gm/30ML SOLN PO SCH ×4 (05:25→21:37)
[2020-02-26 06:03] LABS: Basophils # (auto) 0 10 ^3/uL (0-0.2); Eosinophils # (auto) 0.3 10 ^3/uL (0-0.8); Eosinophils % (auto) 4.1 % (0.0-7.0); Neutrophils # (auto) 4.5 10 ^3/uL (1.6-8.6)
[2020-02-26 06:07] LABS: Basophils % (auto) 0.5 % (0.0-2.0); Hemoglobin 11.1 g/dL (13.5-17.5); Lymphocytes # (auto) 1.5 10 ^3/uL (0.4-5.4); Lymphocytes % (auto) 21.4 % (10.0-50.0); Mean Corpuscular Hemoglobin 27.8 pg (28.0-32.0); Mean Corpuscular Hgb Conc. 32.6 g/dL (32.0-36.0); Mean Corpuscular Volume 85.3 fL (80.0-100.0); Monocytes # (auto) 0.5 10 ^3/uL (0-1.3); Platelet Count (auto) 476 10^3/uL (140-450); Red Blood Cells 3.98 10^6/uL (4.5-5.90); White Blood Cell 6.8 10^3/uL (4.4-10.8)
[2020-02-26] MEDS: METOCLOPRAMIDE HCL 5MG/ml INJ 2ml VIAL IV SCH ×3 (06:08→21:38)
[2020-02-26 06:27] LABS: Potassium 3.5 mmol/L (3.5-5.1)
[2020-02-26 06:38] LABS: BUN/Creatinine Ratio 17.5; Calcium 8.4 mg/dL (8.5-10.1)
--- NOTE | 2020-02-26 06:41 | NUR ---
Respiratory note: PRN MED NEB TX NOT INDICATED AT THIS TIME. PT IS TRACHED WITH NO SIGNS OF RESPIRATORY DISTRESS NOTED AT THIS TIME. HR 71, RR 14, SPO2 98% ON 2 L NC, BS CLEAR. INFORMED PT TO HIT CALL BUTTON IF FEELING SOB OR WHEEZING.GUARDS AT BEDSIDE.
--- NOTE | 2020-02-26 06:49 | NUR ---
END OF SHIFT NOTE will Endorse patient care to day shift RN. Patient AOX4, no S/S of distress or SOB. pt is npo and pt is aware of scheduled procedure
[2020-02-26] MEDS: Glucerna Carbsteady SHAKE Vanilla 8oz PO SCH ×2 (08:00→17:33)
--- NOTE | 2020-02-26 08:00 | NUR ---
OPENING SHIFT NOTE ASSUMED CARE OF PATIENT AWAKE AND ALERT. NO S/S OF DISTRESS NOTED. PATIENT UPDATED ON POC FOR THE DAY AND ALL QUESTIONS ANSWERED. BED IS IN LOWEST, LOCKED POSITION WITH SIDE RAILS UP X2, CALL LIGHT WITHIN REACH, AND GUARDS AT BEDSIDE FOR SAFETY. WILL CONTINUE TO MONITOR Q1H AND PRN.
[2020-02-26 08:38] VITALS: BP 98/70
[2020-02-26 09:00] VITALS: BP 107/70
[2020-02-26] MEDS ORDERED: GASTROGRAFIN 120 ML SOL ONE (09:02)
[2020-02-26] MEDS ORDERED: EZ-GAS II GRANULES (RADIOLOGY USE) PO ONE (09:04)
[2020-02-26] MEDS: INSULIN LANTUS (GLARGINE) 1 /0.01ml (100units/ml) SC SCH (10:00)
[2020-02-26] MEDS: LORATADINE 10 MG TAB PO SCH (10:00)
[2020-02-26] MEDS: PANTOPRAZOLE 40 MG TAB PO SCH ×2 (10:00→21:39)
[2020-02-26] MEDS: MONTELUKAST SODIUM 10 MG TAB PO SCH (10:00)
[2020-02-26] MEDS: ADVAIR IN SCH ×2 (10:00→21:37)
--- NOTE | 2020-02-26 10:00 | NUR ---
OFF UNIT PATIENT OFF UNIT FOR A SMALL BOWEL SERIES ACCOMPANIED BY STAFF AND GUARDS. NO DISTRESS NOTED AT TIME OF DEPARTURE.
[2020-02-26] MEDS: ACCU-CHEK COMFORT CURVE STRIP VI SCH ×2 (10:50→21:44)
[2020-02-26] MEDS: FLUTICASONE PROP NASAL SPR 0.05 % (50MCG) 16GM EACHNOSTRI SCH (10:50)
[2020-02-26] MEDS: DIGOXIN (250MCG/ML) 2 ML AMPULE IV SCH (12:32)
[2020-02-26 13:00] VITALS: BP 109/78
--- NOTE | 2020-02-26 14:04 | NUR ---
1400 02/26/20 I called [facility] Secondary English Teacher Estela [phone] and left message asking for an update on their medical terminologist plan for this patient-compassionate release versus transfer to [facility] facility.
--- NOTE | 2020-02-26 14:37 | NUR ---
PHYSICAL THERAPY PATIENT AMBULATING IN THE HALLWAY WITH PHYSICAL THERAPY USING A FWW. STEADY GAIT OBSERVED.
[2020-02-26 16:35] VITALS: BP 109/74
--- NOTE | 2020-02-26 16:42 | NUR ---
Respiratory note: TRACH CARE PERFORMED AT THIS TIME WITHOUT INCIDENT.
[2020-02-26] MEDS: MORPHINE SULF INJ 2 MG/ML SYRINGE 1ML IV PRN ×2 (16:43→21:38)
--- NOTE | 2020-02-26 19:48 | NUR ---
OPENING SHIFT NOTE Resumed care of patient. Patient is Awake and alert. No signs and symptoms of distress or SOB noted. Bed is in lowest locked position, side rails up x2, call light with in reach. Updated patient on plan of care and patient verbalized understanding. Will continue to monitor Q1hr an PRN.
[2020-02-26] MEDS: TEMAZEPAM 15 MG CAP PO PRN (21:39)
[2020-02-26 22:16] VITALS: BP 111/66
[2020-02-27] MEDS: MORPHINE SULF INJ 2 MG/ML SYRINGE 1ML IV PRN ×4 (02:42→21:33)
[2020-02-27] MEDS: LACTULOSE 20Gm/30ML SOLN PO SCH ×4 (04:50→21:33)
[2020-02-27 05:00] VITALS: BP 102/71
[2020-02-27] MEDS: METOCLOPRAMIDE HCL 5MG/ml INJ 2ml VIAL IV SCH ×3 (05:38→21:32)
--- NOTE | 2020-02-27 07:10 | NUR ---
Respiratory note: PT IS AWAKE, AND ALERT. NO RESPIRATORY DISTRESS NOTED. SPO2 99% ON 2L NC, HR 92, RR 18, BS CLEAR BILATERALLY. PRN MEDNEB TX NOT INDICATED AT THIS TIME. PT INFORMED TO PUSH CALL BUTTON IF INCREASED WOB, SOB, OR WHEEZING OCCURS. GUARDS AT BEDSIDE.
--- NOTE | 2020-02-27 07:24 | NUR ---
END OF SHIFT NOTE Endorse patient care to day shift RN. Patient AOX4, no S/S of distress or SOB.
--- NOTE | 2020-02-27 07:45 | NUR ---
Opening Shift Note Assumed care of patient, awake and alert. No S/S of distress/SOB or pain. Noted trach in place, Instructed on POC and to call for assist PRN, will continue to monitor for changes Q1hr and PRN.
[2020-02-27 08:00] VITALS: BP_SYST 111; BP_SYST 114; BP_DIAS 66; BP_DIAS 70
[2020-02-27] MEDS: Glucerna Carbsteady SHAKE Vanilla 8oz PO SCH ×4 (08:34→21:58)
[2020-02-27] MEDS: PANTOPRAZOLE 40 MG TAB PO SCH ×2 (09:32→21:32)
[2020-02-27] MEDS: LORATADINE 10 MG TAB PO SCH (09:32)
[2020-02-27] MEDS: ADVAIR IN SCH ×2 (09:32→21:33)
[2020-02-27] MEDS: FLUTICASONE PROP NASAL SPR 0.05 % (50MCG) 16GM EACHNOSTRI SCH (09:32)
[2020-02-27] MEDS: MONTELUKAST SODIUM 10 MG TAB PO SCH (09:32)
[2020-02-27] MEDS: ACCU-CHEK COMFORT CURVE STRIP VI SCH ×2 (09:33→22:00)
[2020-02-27] MEDS: INSULIN LANTUS (GLARGINE) 1 /0.01ml (100units/ml) SC SCH (09:37)
--- NOTE | 2020-02-27 11:51 | NUR ---
Nutrition Follow-up Notes Wt.: 68.7 kg Pt is currently on mechanical soft diet along with Glucerna 1 carton QID. Pt was NPO 02/25 for small bowel series, pt po intake since NPO order is 100% x 2 per RN doc. Will continue to monitor pt po for >75% intake. Est. Needs BW 81 [id number] kcals (20-25 kcal/kgBW). 101-126 gms/day (1.2-1.5 gm/kgBW low prealb). Will continue to monitor pertinent labs and reassess nutrient need prn. Labs: POC GLU 204H, Creat 0.63L, Alb 2.3L Ca8.4L Skin: Irwin scale 18 mod risk, pt with pressure ulcers per tubing oiler. refer to notes for details GI: Pt had 3 BM 02/19 per tubing oiler. PES: Altered nutrition related lab values r/t current medical condition aeb hyponatremia, elevated RFTs, hyperglycemia, hypocalcemia, elevated bilirubin severe hypoalbuminemia Will continue to monitor PO intake, skin status, pertinent labs and weight trend. F/u in 3-5 days. Rec.: 1.) consider CCHO 60 gm along with current diet as pt with elev blood glu. 2) Continue current plan of care.
[2020-02-27 12:00] VITALS: BP 120/76
[2020-02-27 17:00] VITALS: BP 114/78
[2020-02-27] MEDS: ONDANSETRON HCL 4 MG/2 ML VIAL IV PRN (17:00)
--- NOTE | 2020-02-27 18:55 | NUR ---
abdominal pain spoke with Dr. Stapleton, made aware of the abdominal pain, received order for CBC, CMP and lipase and to call him for the result.
[2020-02-27 19:25] LABS: Eosinophils # (auto) 0.3 10 ^3/uL (0-0.8); Hemoglobin 11.9 g/dL (13.5-17.5); Lymphocytes # (auto) 1.6 10 ^3/uL (0.4-5.4); Monocytes # (auto) 0.5 10 ^3/uL (0-1.3); Red Cell Distribution Width 17.7 % (11.8-14.3)
[2020-02-27 19:27] LABS: Basophils # (auto) 0.1 10 ^3/uL (0-0.2); Basophils % (auto) 0.7 % (0.0-2.0); Eosinophils % (auto) 3.2 % (0.0-7.0); Hematocrit 37.1 % (41.0-53.0); Mean Corpuscular Hemoglobin 27.6 pg (28.0-32.0); Mean Corpuscular Hgb Conc. 32.1 g/dL (32.0-36.0); Mean Corpuscular Volume 86.1 fL (80.0-100.0); Monocytes % (auto) 6.2 % (0.0-12.0); Neutrophils # (auto) 5.7 10 ^3/uL (1.6-8.6); Neutrophils % (auto) 69.9 % (37.0-80.0); Platelet Count (auto) 502 10^3/uL (140-450); White Blood Cell 8.1 10^3/uL (4.4-10.8)
[2020-02-27 19:46] LABS: Albumin 2.4 g/dL (3.4-5.0); BUN/Creatinine Ratio 16.2; Calcium 8.3 mg/dL (8.5-10.1); Potassium 4.2 mmol/L (3.5-5.1)
[2020-02-27 19:49] LABS: Bilirubin, Total 0.2 mg/dL (0.2-1.0); Total Protein 7.1 g/dL (6.4-8.2)
--- NOTE | 2020-02-27 20:10 | NUR ---
Respiratory note: ASSESSED PT FOR PRN MED NEB TX. PT IS CURRENTLY ON 2 L/M NC: HR 101, RR 18, SPO2 99%. PT SHOWS NO S/S OF SOB OR RESPIRATORY DISTRESS. MED NEB TX NOT INDICATED AT THIS TIME. PT HAS PMV IN PLACE. OFFICERS AT BEDSIDE. WILL CONTINUE TO MONITOR.
--- NOTE | 2020-02-27 20:57 | NUR ---
UPDATED MD SERGEI UPDATED PATIENT LAB TO MD SERGEI REQUESTED MD SERGEI STATED TO CONTINUE TO MONITOR PATIENT
--- NOTE | 2020-02-27 21:45 | NUR ---
PATIENT ATE 0 % OF HIS DINNER AND REFUSE GLUCERNA CARBSTEDY SHAKE , PATIENT STATED STOMACH WAS IN PAIN GAVE PAIN MEDICATION PER MD ORDER WILL CONTINUE ENCOURAGE TO DRINK SHAKE
[2020-02-27 21:46] VITALS: BP 111/68
[2020-02-27] MEDS: TEMAZEPAM 15 MG CAP PO PRN (21:54)
--- NOTE | 2020-02-27 22:55 | NUR ---
wound care wound care provided to sacral area, OptiFoam change per md order
[2020-02-28] MEDS: MORPHINE SULF INJ 2 MG/ML SYRINGE 1ML IV PRN ×5 (01:47→19:58)
[2020-02-28 05:00] VITALS: BP 111/70
[2020-02-28] MEDS: Glucerna Carbsteady SHAKE Vanilla 8oz PO SCH ×4 (06:00→22:00)
[2020-02-28] MEDS: LACTULOSE 20Gm/30ML SOLN PO SCH ×4 (06:00→22:00)
[2020-02-28] MEDS: METOCLOPRAMIDE HCL 5MG/ml INJ 2ml VIAL IV SCH ×3 (06:38→22:03)
--- NOTE | 2020-02-28 07:24 | NUR ---
luc LUQUE AT [facility] SIDE
--- NOTE | 2020-02-28 07:40 | NUR ---
SHALOM LUQUE AT BED SIDE
--- NOTE | 2020-02-28 07:40 | NUR ---
DR TONY / SURGICAL CONSULT AT BED SIDE FOLLOWING UP ON PT WITH NEW ORDERS
[2020-02-28 08:00] VITALS: BP 108/76
--- NOTE | 2020-02-28 08:00 | NUR ---
ASSESSMENT NOTE PT IS ALERT ORIENTED X4, RESTING IN BED COMFORTABLY, O DISTRESS NOTED, ABLE TO SELF REPOSITION AND VERBALIS HIS DEMANDS, PT HAS A STOMA TRACH AT THE BASE OF THE NECK AREA, DRY AND CLEAN, NO SIGNS OF SHORTNESS OF BREATH NOTED, CONTINUE ON PAIN MANAGEMENT AT ALL TIMES NEEDED FOR BURNING PAIN AT LEFT LOWER ABDOMEN AREA, PT HAS HAND METAL CUFFS AT LEFT WRIEST AND BOTH FEET, CHECKED FOR CIRCULATIONS, USE URINAL NEEDED, CALL LIGHT WITHIN REACH, FALL RISK PRECAUTIONS, GUARD AT BED SIDE AT ALL TIMES
--- NOTE | 2020-02-28 08:13 | NUR ---
END OF SHIFT NOTE Endorse patient care to day shift RN. Patient AOX4, no S/S of distress or SOB.
[2020-02-28] MEDS: PANTOPRAZOLE 40 MG TAB PO SCH ×2 (09:14→22:03)
[2020-02-28] MEDS: LORATADINE 10 MG TAB PO SCH (09:14)
[2020-02-28] MEDS: ADVAIR IN SCH ×2 (09:14→22:00)
[2020-02-28] MEDS: MONTELUKAST SODIUM 10 MG TAB PO SCH (09:14)
[2020-02-28] MEDS: ACCU-CHEK COMFORT CURVE STRIP VI SCH ×2 (09:15→22:04)
[2020-02-28] MEDS: INSULIN LANTUS (GLARGINE) 1 /0.01ml (100units/ml) SC SCH (09:20)
[2020-02-28] MEDS: SODIUM CHLORIDE 0.9% 1,000 ML IV SCH ×2 (09:25→18:00)
[2020-02-28] MEDS: FLUTICASONE PROP NASAL SPR 0.05 % (50MCG) 16GM EACHNOSTRI SCH (10:49)
[2020-02-28] MEDS: PIPERACILLIN-TAZOB 3.375GM 100 ML IV SCH ×2 (11:38→17:51)
[2020-02-28 12:00] VITALS: BP 114/75
[2020-02-28] MEDS: DIGOXIN (250MCG/ML) 2 ML AMPULE IV SCH (12:26)
--- NOTE | 2020-02-28 12:35 | NUR ---
NAUSEA AND VOMITING PT VOMIT, ZOFRAN GIVEN TO PT, 2 L NC SAT ON 98%, NO DISTRESS NOTED
[2020-02-28] MEDS: ONDANSETRON HCL 4 MG/2 ML VIAL IV PRN (12:37)
--- NOTE | 2020-02-28 14:52 | NUR ---
assessment Patient has been explained that he has a psychiatric social worker available to him for support and education regarding his hospital stay and any post discharge needs. Patient has no concerns and no questions at this time. Patient verbalized understanding. Addendum: 02/28/20 at 1453 by Josseline QUINONEZ Amended: Links added.
[2020-02-28 17:00] VITALS: BP 120/75
--- NOTE | 2020-02-28 17:00 | NUR ---
PT CONTINUE ON PAIN MANAGEMENT NEEDED AT ALL TIMES
--- NOTE | 2020-02-28 18:34 | NUR ---
PT CONTINUE STABLE, CONTINUE MONITORING
--- NOTE | 2020-02-28 19:55 | NUR ---
Opening Shift Note Assumed care of patient, awake and alert. No S/S of distress/SOB or pain. Instructed on POC and to call for assist PRN, will continue to monitor for changes. Patient is laying in bed, rails up x2, bed in lowest locked position, call light explained and within reach. Guards are at bedside, continuous pulse ox monitoring is set up and working. All questions and concerns addressed, patient verbalized understanding.
[2020-02-28 21:38] VITALS: BP 95/64
[2020-02-28] MEDS: TEMAZEPAM 15 MG CAP PO PRN (22:03)
[2020-02-29] MEDS: PIPERACILLIN-TAZOB 3.375GM 100 ML IV SCH ×4 (00:45→17:52)
[2020-02-29 04:32] VITALS: BP 102/68
[2020-02-29] MEDS: SODIUM CHLORIDE 0.9% 1,000 ML IV SCH ×2 (04:49→14:00)
[2020-02-29] MEDS: METOCLOPRAMIDE HCL 5MG/ml INJ 2ml VIAL IV SCH ×3 (05:50→22:11)
[2020-02-29] MEDS: LACTULOSE 20Gm/30ML SOLN PO SCH ×4 (05:50→22:00)
[2020-02-29] MEDS: Glucerna Carbsteady SHAKE Vanilla 8oz PO SCH ×4 (05:51→22:00)
--- NOTE | 2020-02-29 07:57 | NUR ---
DR Margo HUMPHREYS AT BED SIDE FOLLOWING UP ON PT, MADE AWARE THAT GI CONSULT STILL PENDING, PT IS NPO, DENIES ANY PAIN LAST NIGHT, WITH A NEW ORDERS TO START PT ON CLEAR LIQUID DIET
--- NOTE | 2020-02-29 08:00 | NUR ---
ASSESSMENT NOTE PT IS ALERT ORIENTED X4, RESTING IN BED COMFORTABLY, O DISTRESS NOTED, ABLE TO SELF REPOSITION AND VERBALIS HIS DEMANDS, PT HAS A STOMA TRACH AT THE BASE OF THE NECK AREA, DRY AND CLEAN, NO SIGNS OF SHORTNESS OF BREATH NOTED, DENIES ANY ABDOMEN ACHING PAIN AT THIS TIME, PT HAS HAND METAL CUFFS AT LEFT WRIEST AND BOTH FEET, CHECKED FOR CIRCULATIONS, USE URINAL NEEDED, CALL LIGHT WITHIN REACH, FALL RISK PRECAUTIONS, GUARD AT BED SIDE AT ALL TIMES
[2020-02-29 08:36] VITALS: BP 100/67
--- NOTE | 2020-02-29 09:15 | NUR ---
BREAKFAST PT DID NOT TOLERATED DIET WELL, START TO HAVE A SEVERE BUNING PAIN AT LEFT LOWER ABDOMEN AREA, MORPHINE IV GIVEN TO PT
[2020-02-29] MEDS: MORPHINE SULF INJ 2 MG/ML SYRINGE 1ML IV PRN ×3 (09:17→20:01)
[2020-02-29] MEDS: FLUTICASONE PROP NASAL SPR 0.05 % (50MCG) 16GM EACHNOSTRI SCH (09:28)
[2020-02-29] MEDS: MONTELUKAST SODIUM 10 MG TAB PO SCH (09:29)
[2020-02-29] MEDS: INSULIN LANTUS (GLARGINE) 1 /0.01ml (100units/ml) SC SCH (09:29)
[2020-02-29] MEDS: LORATADINE 10 MG TAB PO SCH (09:29)
[2020-02-29] MEDS: PANTOPRAZOLE 40 MG TAB PO SCH ×2 (09:29→22:13)
[2020-02-29] MEDS: ACCU-CHEK COMFORT CURVE STRIP VI SCH ×2 (09:30→22:14)
[2020-02-29] MEDS: ADVAIR IN SCH ×2 (09:30→22:00)
[2020-02-29 13:00] VITALS: BP 105/77
[2020-02-29 16:33] VITALS: BP 109/73
[2020-02-29 17:07] VITALS: BP 109/73
--- NOTE | 2020-02-29 18:30 | NUR ---
PT CONTINUE STABLE, CONTINUE MONITORING
--- NOTE | 2020-02-29 19:16 | NUR ---
DR TONY AT BED SIDE, FOLLOWING UP ON PT , AWARE PT DID NOT TOLERATED DIET WELL, WITH NEW ORDER OF NPO
--- NOTE | 2020-02-29 19:35 | NUR ---
Opening Shift Note Assumed care of patient, awake and alert. No S/S of distress/SOB. Instructed on POC and to call for assist PRN, will continue to monitor for changes. Patient is laying in bed, rails up x2, bed in lowest locked position, call light explained and within reach. Guards are at bedside, continuous pulse ox monitoring is set up and working. All questions and concerns addressed, patient verbalized understanding.
[2020-02-29 21:30] VITALS: BP 103/69
[2020-02-29] MEDS: TEMAZEPAM 15 MG CAP PO PRN (22:42)
[2020-03-01] MEDS: PIPERACILLIN-TAZOB 3.375GM 100 ML IV SCH ×5 (00:02→23:29)
[2020-03-01] MEDS: SODIUM CHLORIDE 0.9% 1,000 ML IV SCH ×3 (00:02→21:26)
[2020-03-01 04:30] VITALS: BP 94/66
[2020-03-01] MEDS: Glucerna Carbsteady SHAKE Vanilla 8oz PO SCH ×4 (06:00→21:27)
[2020-03-01] MEDS: LACTULOSE 20Gm/30ML SOLN PO SCH ×4 (06:00→21:27)
[2020-03-01] MEDS: METOCLOPRAMIDE HCL 5MG/ml INJ 2ml VIAL IV SCH ×3 (06:07→21:26)
[2020-03-01] MEDS: ALBUTEROL SULF 2.5 MG/0.5ML(0.5%) NEB SOLN NEB PRN (07:16)
--- NOTE | 2020-03-01 07:16 | NUR ---
Respiratory note: Administered PRN medneb tx for wheezing/SOB. Tx administered via mask, tolerated well, no adverse reactions noted. Deep tracheal suctioned x2 for moderate thin clear secretions. Inner cannula cleaned per pt's request, completed without incident. Pt with tracheostomy 6.0 shiley, cuff deflated, speaking valve in place. Pt connected to continuous bedside POX monitor. Spare trach and obturator available at bedside. No s/s of respiratory distress noted.
--- NOTE | 2020-03-01 07:30 | NUR ---
Opening Shift Note Assumed care of patient. Patient awake, alert and oriented x4. No S/S of distress/SOB or pain. Noted trach in place. Instructed on POC and to call for assist PRN. Patient educated on use of call light. Patient verbalized understanding. Bed in lowest position, side rails up x2. Guards at bedside. Will continue to monitor for changes Q1hr and PRN.
[2020-03-01 09:00] VITALS: BP 102/64
[2020-03-01] MEDS: ADVAIR IN SCH ×2 (10:00→21:26)
[2020-03-01] MEDS: FLUTICASONE PROP NASAL SPR 0.05 % (50MCG) 16GM EACHNOSTRI SCH (10:00)
[2020-03-01] MEDS: INSULIN LANTUS (GLARGINE) 1 /0.01ml (100units/ml) SC SCH (10:00)
[2020-03-01] MEDS: ACCU-CHEK COMFORT CURVE STRIP VI SCH ×2 (10:00→21:28)
[2020-03-01] MEDS: PANTOPRAZOLE 40 MG TAB PO SCH ×2 (10:27→21:28)
[2020-03-01] MEDS: LORATADINE 10 MG TAB PO SCH (10:27)
[2020-03-01] MEDS: MONTELUKAST SODIUM 10 MG TAB PO SCH (10:28)
[2020-03-01] MEDS: DIGOXIN (250MCG/ML) 2 ML AMPULE IV SCH (12:30)
[2020-03-01 13:00] VITALS: BP 105/69
--- NOTE | 2020-03-01 15:21 | NUR ---
Nutrition Follow-up Notes Wt.: 70.1 kg Pt is currently on a Clear Liquid diet d/t recent abdominal pain. Pt noted no distress or abdominal pain today. Pt appetite is fair aeb ave 88% PO intake over 4 meals. Will continue to closely monitor pertinent labs, PO intake and skin status prn. Will followup in 2-3 days Est. Needs BW 81 [id number] kcals (20-25 kcal/kgBW). 101-126 gms/day (1.2-1.5 gm/kgBW low prealb). Will continue to monitor pertinent labs and reassess nutrient need prn. Labs: POC GLU 206H, A1c 10.8 H, Alb 2.4L Skin: Irwin scale 18 mod risk, pt with pressure ulcers per associate professor physician. refer to WC notes for details GI: Pt had 1 BM 02/26 per associate professor physician. PES: Altered nutrition related lab values r/t current medical condition aeb hyponatremia, elevated RFTs, hyperglycemia, hypocalcemia, elevated bilirubin severe hypoalbuminemia Will continue to monitor PO intake, skin status, pertinent labs and weight trend. F/u in 3-5 days. Rec.: 1.) consider CCHO 60 gm along with current diet as pt with elev blood glu. 2) Continue current plan of care.
[2020-03-01 17:00] VITALS: BP 110/69
[2020-03-01] MEDS: TEMAZEPAM 15 MG CAP PO PRN (21:29)
[2020-03-01] MEDS: ACETAMINOPHEN 325 MG TAB PO PRN (21:30)
[2020-03-02 05:00] VITALS: BP 103/67
[2020-03-02] MEDS: PIPERACILLIN-TAZOB 3.375GM 100 ML IV SCH ×3 (05:36→18:08)
[2020-03-02] MEDS: SODIUM CHLORIDE 0.9% 1,000 ML IV SCH ×2 (05:36→18:08)
[2020-03-02] MEDS: METOCLOPRAMIDE HCL 5MG/ml INJ 2ml VIAL IV SCH ×3 (05:36→22:54)
[2020-03-02] MEDS: LACTULOSE 20Gm/30ML SOLN PO SCH (05:37)
[2020-03-02] MEDS: Glucerna Carbsteady SHAKE Vanilla 8oz PO SCH ×4 (05:37→22:00)
[2020-03-02 09:00] VITALS: BP 112/69
[2020-03-02] MEDS: ADVAIR IN SCH ×2 (10:00→22:00)
[2020-03-02] MEDS: FLUTICASONE PROP NASAL SPR 0.05 % (50MCG) 16GM EACHNOSTRI SCH (10:43)
[2020-03-02] MEDS: PANTOPRAZOLE 40 MG TAB PO SCH ×2 (10:44→22:54)
[2020-03-02] MEDS: LORATADINE 10 MG TAB PO SCH (10:44)
[2020-03-02] MEDS: MONTELUKAST SODIUM 10 MG TAB PO SCH (10:44)
[2020-03-02] MEDS: INSULIN LANTUS (GLARGINE) 1 /0.01ml (100units/ml) SC SCH (10:45)
[2020-03-02] MEDS: ACCU-CHEK COMFORT CURVE STRIP VI SCH ×2 (10:45→22:55)
[2020-03-02] MEDS ORDERED: MILK OF MAGNESIA 30ML SUSP PO PRN (11:00)
--- NOTE | 2020-03-02 12:00 | NUR ---
WOUND CARE NOTE: IN TO SEE PATIENT AT THIS TIME TO VISUALIZE PATIENT'S WOUND TO COCCYX. PATIENT HAS CURRENT ABBY SCORE OF 20. PATIENT CONTINUES TO REST ON SPECIALTY AIR MATTRESS. HE HAS BEEN AMBULATING IN THE HALLWAYS MULTIPLE TIMES DAILY. PATIENT STATES HE FEELS MUCH BETTER, PATIENT CONTINUES TO SELF TURN/REPOSITION SELF.PATIENT'S WOUND TO THE COCCYX IS NOW CLOSED WITH RAISED PINK COLLAGEN SCAR. NEW WOUND PHOTO TAKEN AT THIS TIME FOR REFERENCE. PATIENT NOTED TO HAVE NO ADDITIONAL OPEN WOUNDS AT THIS TIME. RECOMMEND: CONTINUATION WITH ALL WOUND CARE ORDERS PREVIOUSLY PRESCRIBED BY MD. WOUND CARE TEAM WILL CONTINUE TO MONITOR. Addendum: 03/02/20 at 1506 by Denisha Thornton RN Amended: Links added.
[2020-03-02 13:00] VITALS: BP 103/67
[2020-03-02] MEDS: DOCUSATE SOD 100 MG CAP PO SCH ×2 (15:05→22:00)
[2020-03-02 17:00] VITALS: BP 109/69
--- NOTE | 2020-03-02 19:15 | NUR ---
Opening Shift Note Assumed care of patient, awake and AOx4. No S/S of distress/SOB. Patient is laying in bed, rails up x2, bed in lowest locked position, call light within reach. All questions and concerns addressed, patient verbalized understanding. Will continue to monitor.
--- NOTE | 2020-03-02 20:36 | NUR ---
Patient Complains of Pain Patient complains of abdominal pain 10/10. Patient given pain medication as prescribed. Will continue to monitor.
[2020-03-02] MEDS: MORPHINE SULF INJ 2 MG/ML SYRINGE 1ML IV PRN (20:37)
[2020-03-02 22:00] VITALS: BP 117/70
[2020-03-02] MEDS: SENNA 8.6 MG TAB PO SCH (22:00)
[2020-03-03] MEDS: PIPERACILLIN-TAZOB 3.375GM 100 ML IV SCH ×5 (00:15→23:27)
--- NOTE | 2020-03-03 01:09 | NUR ---
Patient Complains of Pain Patient complains that abdominal pain is still causing discomfort. Request for pain medication, prescribed PRN pain med given. Will continue to monitor.
[2020-03-03] MEDS: MORPHINE SULF INJ 2 MG/ML SYRINGE 1ML IV PRN ×7 (01:10→23:49)
[2020-03-03] MEDS: SODIUM CHLORIDE 0.9% 1,000 ML IV SCH ×3 (02:00→23:26)
[2020-03-03 05:00] VITALS: BP 114/73
[2020-03-03] MEDS: Glucerna Carbsteady SHAKE Vanilla 8oz PO SCH ×4 (06:00→22:00)
[2020-03-03] MEDS: METOCLOPRAMIDE HCL 5MG/ml INJ 2ml VIAL IV SCH ×3 (06:16→23:26)
[2020-03-03] MEDS: DOCUSATE SOD 100 MG CAP PO SCH ×3 (06:16→23:26)
--- NOTE | 2020-03-03 06:20 | NUR ---
Patient Complains of Pain Patient states there is pain in his abdomen. Patient requested medication for pain, medication given as prescribed. Will continue to monitor.
--- NOTE | 2020-03-03 07:23 | NUR ---
END OF SHIFT NOTE Endorse patient care to day shift RN. Patient AOX4, no S/S of distress or SOB.
--- NOTE | 2020-03-03 07:30 | NUR ---
Opening Shift Note Assumed care of patient, awake and alert. No S/S of distress/SOB. Pain reported to abdomen. Pain management options discussed with patient. Message left with Dr. Caballero's office. Instructed on POC and to call for assist PRN, will continue to monitor for changes Q1hr and PRN.
--- NOTE | 2020-03-03 08:41 | NUR ---
Dr. Caballero at bedside. Aware of patient's abdominal pain. Further orders in process.
[2020-03-03 08:47] VITALS: BP 122/77
[2020-03-03] MEDS: ADVAIR IN SCH ×2 (09:58→22:00)
[2020-03-03] MEDS: LORATADINE 10 MG TAB PO SCH (09:58)
[2020-03-03] MEDS: FLUTICASONE PROP NASAL SPR 0.05 % (50MCG) 16GM EACHNOSTRI SCH (09:58)
[2020-03-03] MEDS: MONTELUKAST SODIUM 10 MG TAB PO SCH (09:59)
[2020-03-03] MEDS: PANTOPRAZOLE 40 MG TAB PO SCH ×2 (09:59→23:27)
[2020-03-03] MEDS: INSULIN LANTUS (GLARGINE) 1 /0.01ml (100units/ml) SC SCH (10:01)
[2020-03-03] MEDS: ACCU-CHEK COMFORT CURVE STRIP VI SCH ×2 (10:01→23:27)
[2020-03-03] MEDS: DIGOXIN (250MCG/ML) 2 ML AMPULE IV SCH (12:29)
[2020-03-03 12:58] VITALS: BP 112/73
--- NOTE | 2020-03-03 14:32 | NUR ---
updated Dr. Caballero on patient's status and gave him the imaging results. No new orders concerning the imaging. Pain management orders received. patient's request to increase pain medication frequency approved. Dr. Caballero said he will see the patient tomorrow.
[2020-03-03 16:39] VITALS: BP 119/80
[2020-03-03 17:18] VITALS: BP 119/80
--- NOTE | 2020-03-03 17:20 | NUR ---
IJ central line dressing changed. sutures intact. patient tolerated well.
[2020-03-03 22:00] VITALS: BP 110/69
[2020-03-03] MEDS: SENNA 8.6 MG TAB PO SCH (23:27)
[2020-03-03] MEDS: TEMAZEPAM 15 MG CAP PO PRN (23:50)
[2020-03-03] MEDS: ONDANSETRON HCL 4 MG/2 ML VIAL IV PRN (23:58)
[2020-03-04 05:00] VITALS: BP 90/64
[2020-03-04] MEDS: Glucerna Carbsteady SHAKE Vanilla 8oz PO SCH ×4 (06:00→21:57)
[2020-03-04] MEDS: PIPERACILLIN-TAZOB 3.375GM 100 ML IV SCH ×3 (06:21→18:21)
[2020-03-04] MEDS: DOCUSATE SOD 100 MG CAP PO SCH ×3 (06:21→21:57)
[2020-03-04] MEDS: METOCLOPRAMIDE HCL 5MG/ml INJ 2ml VIAL IV SCH ×3 (06:21→21:56)
--- NOTE | 2020-03-04 07:24 | NUR ---
Opening Shift Note Assumed care of patient, awake and alert. No S/S of distress/SOB or pain. Instructed on POC and to call for assist PRN, will continue to monitor for changes Q1hr and PRN. Bed is set in lowest locked position with side rails up x 2 for safety and call light is within reach. Guard present at bedside at this time.
--- NOTE | 2020-03-04 07:27 | NUR ---
MD Caballero rounding at bedside Per MD, disregard communication order for strict NPO, patient may continue soft mechanical consistent carb diet. MD updated pt on POC, patient states they feel better at this time and would like to continue to eat.
[2020-03-04] MEDS: SODIUM CHLORIDE 0.9% 1,000 ML IV SCH ×2 (08:36→18:00)
--- NOTE | 2020-03-04 09:45 | NUR ---
Attempted PT treatment, pt states he does not feel well and would like to have PM treatment. Will attempt again later.
[2020-03-04] MEDS: INSULIN LANTUS (GLARGINE) 1 /0.01ml (100units/ml) SC SCH (10:00)
[2020-03-04] MEDS: ADVAIR IN SCH ×2 (10:00→21:56)
[2020-03-04] MEDS: PANTOPRAZOLE 40 MG TAB PO SCH ×2 (10:48→21:58)
[2020-03-04] MEDS: LORATADINE 10 MG TAB PO SCH (10:48)
[2020-03-04] MEDS: MONTELUKAST SODIUM 10 MG TAB PO SCH (10:48)
[2020-03-04] MEDS: FLUTICASONE PROP NASAL SPR 0.05 % (50MCG) 16GM EACHNOSTRI SCH (10:48)
[2020-03-04] MEDS: ACCU-CHEK COMFORT CURVE STRIP VI SCH ×2 (10:51→22:00)
[2020-03-04] MEDS: ONDANSETRON HCL 4 MG/2 ML VIAL IV PRN (11:03)
[2020-03-04] MEDS: MORPHINE SULF INJ 2 MG/ML SYRINGE 1ML IV PRN ×4 (11:03→18:43)
--- NOTE | 2020-03-04 12:51 | NUR ---
Nutrition Follow-up Notes Wt.: 67.7 KG [facility] soft diet with Glucerna 1 carton tid with adequate PO of > 75% x 4 per RN doc. pt now off PN support Est. Needs BW 81 [id number] kcals (20-25 kcal/kgBW). 101-126 gms/day (1.2-1.5 gm/kgBW low prealb). Will continue to monitor pertinent labs and reassess nutrient need prn. Labs: No new labs today Skin: Irwin scale 20 mod risk, pt with pressure ulcers per dry cleaning supervisor. refer to notes for details GI: Pt had 1 BM 02/26 per dry cleaning supervisor. pt on MOM PES: Altered nutrition related lab values r/t current medical condition aeb hyponatremia, elevated RFTs, hyperglycemia, hypocalcemia, elevated bilirubin severe hypoalbuminemia Will continue to monitor PO intake, skin status, pertinent labs and weight trend. F/u in 3-5 days. Rec.: 1.) continue assistance with meals. 2) Continue current plan of care.
[2020-03-04 13:00] VITALS: BP 93/61
--- NOTE | 2020-03-04 14:20 | NUR ---
2ND ATTEMPT FOR PT TREATMENT. PT DECLINED. WILL ATTEMPT TOMORROW.
--- NOTE | 2020-03-04 14:46 | NUR ---
Spoke to MD Caballero in regards to abdominal pain Patient reports increased abdominal pain after eating, MD made aware. No new orders received. Will medicate patient per eMar orders and continue to monitor patient.
[2020-03-04] MEDS: DIGOXIN (250MCG/ML) 2 ML AMPULE IV SCH (16:05)
[2020-03-04 17:00] VITALS: BP 111/63
--- NOTE | 2020-03-04 21:30 | NUR ---
Respiratory note: PT ASSESSED FOR PRN MED NEB TX. HR 95, RR 18, SPO2 98% ON 2L NC. NO S/S OF ANY RESPIRATORY DISTRESS NOTED. ADVISED PT TO CALL IF TX IS NEEDED. PT CONNECTED TO CONT. PULSOX AT BEDSIDE.
[2020-03-04] MEDS: SENNA 8.6 MG TAB PO SCH (21:58)
[2020-03-04 22:00] VITALS: BP 95/70
[2020-03-04] MEDS: TEMAZEPAM 15 MG CAP PO PRN (22:01)
[2020-03-04] MEDS: ACETAMINOPHEN 325 MG TAB PO PRN (22:01)
[2020-03-05] MEDS: PIPERACILLIN-TAZOB 3.375GM 100 ML IV SCH ×4 (00:05→18:02)
[2020-03-05 05:00] VITALS: BP 102/65
[2020-03-05] MEDS: SODIUM CHLORIDE 0.9% 1,000 ML IV SCH ×2 (06:12→13:31)
[2020-03-05] MEDS: METOCLOPRAMIDE HCL 5MG/ml INJ 2ml VIAL IV SCH ×3 (06:17→22:00)
[2020-03-05] MEDS: Glucerna Carbsteady SHAKE Vanilla 8oz PO SCH ×4 (06:18→22:01)
[2020-03-05] MEDS: DOCUSATE SOD 100 MG CAP PO SCH ×3 (06:18→22:00)
--- NOTE | 2020-03-05 07:15 | NUR ---
PT IS AWAKE, ALERT AND ORIENTED AND ABLE TO UNDERSTAND AND FOLLOW INDICATIONS. PT ON SEMI FOWLERS POSITION. A #6.0 SHILEY TRACHEOSTOMY IN SITU, PROPERLY SECURED AND PATENT. SPARE UNIT AT BEDSIDE ALONG WITH OBTURATOR. CONTINUOUS PULSE OXYMETER AT BEDSIDE AND ALARMS ARE FUNCTIONAL AND AUDIBLE. PT DENIES SOB OR ANY OTHER ACUTE DISTRESS. BS ARE DIMINISHED TO AUSCULTATION, SKIN IS WARM AND DRY TO THE TOUCH. PT INSTRUCTED TO CALL IF [place] TX IS INDICATED. PT VERBALIZED UNDERSTANDING. WILL CONTINUE TO MONITOR PT.
--- NOTE | 2020-03-05 07:25 | NUR ---
Opening Shift Note Assumed care of patient, resting in bed with eyes closed. Breaths are even and unlabored, continuous pulse ox in place and patient is currently on 2 L/min NC. No S/S of distress/SOB or pain. Will continue to monitor for changes Q1hr and PRN. Bed is set in lowest locked position with side rails up x 2 for safety and call light is within reach. Guard present at bedside at this time.
[2020-03-05 08:25] VITALS: BP 129/76
[2020-03-05] MEDS: ADVAIR IN SCH ×2 (09:29→21:51)
[2020-03-05] MEDS: MONTELUKAST SODIUM 10 MG TAB PO SCH (09:34)
[2020-03-05] MEDS: FLUTICASONE PROP NASAL SPR 0.05 % (50MCG) 16GM EACHNOSTRI SCH (09:34)
[2020-03-05] MEDS: INSULIN LANTUS (GLARGINE) 1 /0.01ml (100units/ml) SC SCH (09:35)
[2020-03-05] MEDS: PANTOPRAZOLE 40 MG TAB PO SCH ×2 (09:35→22:01)
[2020-03-05] MEDS: ACCU-CHEK COMFORT CURVE STRIP VI SCH ×2 (09:35→22:01)
[2020-03-05] MEDS: LORATADINE 10 MG TAB PO SCH (09:35)
--- NOTE | 2020-03-05 10:30 | NUR ---
Patient currently ambulating with PT in hallway Patient's gait is steady, with use of FWW. Patient's breaths are even and unlabored. No distress/SOB noted during ambulation.
[2020-03-05 13:11] VITALS: BP 102/69
--- NOTE | 2020-03-05 13:11 | NUR ---
MD Stapleton rounding at bedside Updated pt on POC.
[2020-03-05 16:34] VITALS: BP 101/68
[2020-03-05 22:00] VITALS: BP 104/69
[2020-03-05] MEDS: SENNA 8.6 MG TAB PO SCH (22:01)
[2020-03-05] MEDS: TEMAZEPAM 15 MG CAP PO PRN (22:03)
[2020-03-05] MEDS: ACETAMINOPHEN 325 MG TAB PO PRN (22:03)
[2020-03-06 05:00] VITALS: BP 102/64
[2020-03-06] MEDS: SODIUM CHLORIDE 0.9% 1,000 ML IV SCH ×3 (05:56→21:20)
[2020-03-06] MEDS: DOCUSATE SOD 100 MG CAP PO SCH ×3 (05:58→21:20)
[2020-03-06] MEDS: METOCLOPRAMIDE HCL 5MG/ml INJ 2ml VIAL IV SCH ×3 (05:58→21:20)
[2020-03-06] MEDS: Glucerna Carbsteady SHAKE Vanilla 8oz PO SCH ×4 (05:58→21:21)
[2020-03-06] MEDS: PIPERACILLIN-TAZOB 3.375GM 100 ML IV SCH ×5 (05:58→23:59)
[2020-03-06 06:10] LABS: Basophils # (auto) 0.1 10 ^3/uL (0-0.2); Basophils % (auto) 1.1 % (0.0-2.0); Eosinophils # (auto) 0.3 10 ^3/uL (0-0.8); Eosinophils % (auto) 4.8 % (0.0-7.0); Hematocrit 31.9 % (41.0-53.0); Hemoglobin 10.5 g/dL (13.5-17.5); Lymphocytes # (auto) 1.5 10 ^3/uL (0.4-5.4); Lymphocytes % (auto) 26.1 % (10.0-50.0); Mean Corpuscular Hemoglobin 28.2 pg (28.0-32.0); Mean Corpuscular Volume 85.5 fL (80.0-100.0); Monocytes # (auto) 0.6 10 ^3/uL (0-1.3); Monocytes % (auto) 9.4 % (0.0-12.0); Neutrophils # (auto) 3.5 10 ^3/uL (1.6-8.6); Neutrophils % (auto) 58.6 % (37.0-80.0); Platelet Count (auto) 413 10^3/uL (140-450); Red Blood Cells 3.73 10^6/uL (4.5-5.90); White Blood Cell 5.9 10^3/uL (4.4-10.8)
[2020-03-06 06:41] LABS: Potassium 3.6 mmol/L (3.5-5.1)
[2020-03-06 06:57] LABS: BUN/Creatinine Ratio 6.6; Calcium 8.3 mg/dL (8.5-10.1)
--- NOTE | 2020-03-06 08:00 | NUR ---
ASSESSMENT NOTE PT IS ALERT ORIENTED X4, RESTING IN BED COMFORTABLY, NO DISTRESS NOTED, SELF REPOSITION AND AMBULATE NEEDED, PT HAS A SPEECH VALVE OVER HIS TRACH, SOFT SPOKEN, A METAL HAND CUFF NOTED AT LEFT WRIEST AND BOTH LOWER EXTREMITIES,CHECK FOR CIRCULATION AT ALL TIMES, DENIES PAIN 0/10, CALL LIGHT WITHIN REACH, FALL RISK PRECAUTIONS, 2 GUARDS AT BED SIDE AT ALL TIMES
[2020-03-06] MEDS: ADVAIR IN SCH ×2 (08:55→21:19)
[2020-03-06] MEDS: FLUTICASONE PROP NASAL SPR 0.05 % (50MCG) 16GM EACHNOSTRI SCH (08:55)
[2020-03-06] MEDS: PANTOPRAZOLE 40 MG TAB PO SCH ×2 (08:56→21:21)
[2020-03-06] MEDS: LORATADINE 10 MG TAB PO SCH (08:56)
[2020-03-06] MEDS: MONTELUKAST SODIUM 10 MG TAB PO SCH (08:56)
[2020-03-06] MEDS: INSULIN LANTUS (GLARGINE) 1 /0.01ml (100units/ml) SC SCH (08:56)
[2020-03-06] MEDS: ACCU-CHEK COMFORT CURVE STRIP VI SCH ×2 (08:57→21:22)
--- NOTE | 2020-03-06 09:00 | NUR ---
DR GONCALVES IS HERE FOLLOWING UP ON PT WITH NEW ORDERS
[2020-03-06 09:10] VITALS: BP 112/72
[2020-03-06 12:16] VITALS: BP_SYST 120; BP_SYST 99; BP_DIAS 68; BP_DIAS 73
[2020-03-06] MEDS: DIGOXIN (250MCG/ML) 2 ML AMPULE IV SCH (12:18)
--- NOTE | 2020-03-06 12:18 | NUR ---
URINE SAMPLE AND SPUTUM SAMPLE ARE SENT TO LAB
[2020-03-06 17:13] VITALS: BP 99/68
[2020-03-06 17:25] VITALS: BP 112/73
[2020-03-06] MEDS: MORPHINE SULF INJ 2 MG/ML SYRINGE 1ML IV PRN ×2 (17:45→21:22)
--- NOTE | 2020-03-06 18:07 | NUR ---
TRACH ASSESSMENT DONE. PT HAS A 6.0 SHILEY WITH A DEFLATED CUFF. PASSY-NERI SPEAKING VALVE IS IN PLACE. PT IS AWAKE AND ALERT. SPO2 99% ON 1L NC. SPARE TRACH IS AT BEDSIDE. STOMA SITE IS CLEAN WITH NO BREAKDOWN OR DRAINAGE. WILL CONTINUE TO MONITOR.
--- NOTE | 2020-03-06 18:33 | NUR ---
PT CONTINUE STABLE, CONTINUE MONITORING
[2020-03-06] MEDS: SENNA 8.6 MG TAB PO SCH (21:21)
[2020-03-06] MEDS: TEMAZEPAM 15 MG CAP PO PRN (21:54)
[2020-03-06 22:00] VITALS: BP 116/70
[2020-03-07] MEDS: MORPHINE SULF INJ 2 MG/ML SYRINGE 1ML IV PRN ×4 (01:49→22:52)
[2020-03-07 05:00] VITALS: BP 117/74
[2020-03-07] MEDS: SODIUM CHLORIDE 0.9% 1,000 ML IV SCH ×2 (05:49→16:00)
[2020-03-07] MEDS: PIPERACILLIN-TAZOB 3.375GM 100 ML IV SCH ×3 (05:50→17:58)
[2020-03-07] MEDS: DOCUSATE SOD 100 MG CAP PO SCH ×3 (06:03→20:03)
[2020-03-07] MEDS: Glucerna Carbsteady SHAKE Vanilla 8oz PO SCH ×4 (06:03→20:04)
[2020-03-07] MEDS: METOCLOPRAMIDE HCL 5MG/ml INJ 2ml VIAL IV SCH ×4 (06:03→20:03)
[2020-03-07] MEDS ORDERED: MAGNESIUM CITRATE SOLUTION 300 ML BTL PO ONE (07:45)
--- NOTE | 2020-03-07 08:00 | NUR ---
ASSESSMENT NOTE PT IS ALERT ORIENTED X4, RESTING IN BED COMFORTABLY, NO DISTRESS NOTED, SELF REPOSITION AND AMBULATE NEEDED, PT HAS A SPEECH VALVE OVER HIS TRACH, SOFT SPOKEN, A METAL HAND CUFF NOTED AT LEFT WRIEST AND BOTH LOWER EXTREMITIES,CHECK FOR CIRCULATION AT ALL TIMES, DENIES PAIN 04/22, AWARE THAT HE WILL BE MEDICATED AFTER EATING BREAKFAST, CALL LIGHT WITHIN REACH, FALL RISK PRECAUTIONS, 2 GUARDS AT BED SIDE AT ALL TIMES
[2020-03-07 09:00] VITALS: BP 109/82
[2020-03-07] MEDS: FLUTICASONE PROP NASAL SPR 0.05 % (50MCG) 16GM EACHNOSTRI SCH (09:20)
[2020-03-07] MEDS: MONTELUKAST SODIUM 10 MG TAB PO SCH (09:20)
[2020-03-07] MEDS: PANTOPRAZOLE 40 MG TAB PO SCH ×2 (09:21→20:05)
[2020-03-07] MEDS: LORATADINE 10 MG TAB PO SCH (09:21)
[2020-03-07] MEDS: INSULIN LANTUS (GLARGINE) 1 /0.01ml (100units/ml) SC SCH (09:27)
[2020-03-07] MEDS: ADVAIR IN SCH ×2 (09:27→20:06)
[2020-03-07] MEDS: ACCU-CHEK COMFORT CURVE STRIP VI SCH ×2 (09:28→22:33)
--- NOTE | 2020-03-07 09:29 | NUR ---
PICKER PACKER ЕЛЕНА AT BED SIDE WITH KUB PT AWARE
--- NOTE | 2020-03-07 10:00 | NUR ---
PT REFUSED P.T. BECAUSE OF SHORTNESS OF BREATH.
[2020-03-07] MEDS: ONDANSETRON HCL 4 MG/2 ML VIAL IV PRN (12:03)
[2020-03-07 13:00] VITALS: BP 116/75
--- NOTE | 2020-03-07 13:03 | NUR ---
Nutrition Follow-up Notes Wt.: 69.7 KG [facility] gm mech soft diet with Glucerna 1 carton tid with adequate PO of 100% x 2 days per RN doc. pt now off PN support. Est. Needs BW 81 [id number] kcals (20-25 kcal/kgBW). 101-126 gms/day (1.2-1.5 gm/kgBW low prealb). Will continue to monitor pertinent labs and reassess nutrient need prn. Labs: BUN 5L, GlUC 237H, Ca 8.3L, Alb 2.4L Skin: Irwin scale 18 mod risk, pt with pressure ulcers per ginning operator. refer to notes for details GI: Pt had 1 BM 03/06 per ginning operator. pt on MOM prn PES: Altered nutrition related lab values r/t current medical condition aeb hyponatremia, elevated RFTs, hyperglycemia, hypocalcemia, elevated bilirubin severe hypoalbuminemia Will continue to monitor PO intake, skin status, pertinent labs and weight trend. F/u in 3-5 days. Rec.: 1.) continue assistance with meals. 2) Continue current plan of care.
--- NOTE | 2020-03-07 13:10 | NUR ---
DR CARABALLO AT BED SIDE FOLLOWING UP ON PT WITH NEW ORDERS
[2020-03-07] MEDS ORDERED: OMNIPAQUE ORAL SOLN 500ml 12mg/ml PO ONE (13:14)
--- NOTE | 2020-03-07 13:30 | NUR ---
EDUCATION ANALYST AT BED SIDE CONSENTING PT FOR ABDOMEN CT WITH ORAL AND IV WITH CONTRAST, PT AGREE SIGN THE CONSENTS
--- NOTE | 2020-03-07 13:35 | NUR ---
PT IS DRINKING THE ORAL CONTRAST, TICKET PULLER WILL BE HERE IN 2 HOURS
--- NOTE | 2020-03-07 14:05 | NUR ---
Respiratory note: Trach care completed without incident. Deep tracheal suctioned for small amount thin clear secretions. Breath sounds clear, diminished in bases, HR 95, RR 16, SPO2 99% on 1lpm nasal cannula. Tracheostomy 6.[address], cuff deflated, speaking valve in place. No s/s of respiratory distress noted. Medneb tx not indicated at this time. Spare trach and obturator available at bedside. Pt on continuous bedside POX monitoring. Advised pt to call for RT if needed.
[2020-03-07] MEDS ORDERED: IOHEXOL 300 MG/ML 100ML BOTTLE IJ ONE (15:51)
[2020-03-07 16:48] VITALS: BP 115/67
--- NOTE | 2020-03-07 18:39 | NUR ---
PT CONTINUE STABLE, CONTINUE MONITORING
[2020-03-07] MEDS: SENNA 8.6 MG TAB PO SCH (20:05)
[2020-03-07 21:51] VITALS: BP 118/78
[2020-03-07] MEDS: TEMAZEPAM 15 MG CAP PO PRN (22:34)
[2020-03-08] MEDS: SODIUM CHLORIDE 0.9% 1,000 ML IV SCH ×3 (00:33→22:40)
[2020-03-08] MEDS: PIPERACILLIN-TAZOB 3.375GM 100 ML IV SCH ×4 (00:33→18:07)
[2020-03-08 04:54] VITALS: BP 107/76
[2020-03-08] MEDS: METOCLOPRAMIDE HCL 5MG/ml INJ 2ml VIAL IV SCH ×3 (05:37→22:40)
[2020-03-08] MEDS: DOCUSATE SOD 100 MG CAP PO SCH ×3 (05:38→23:04)
[2020-03-08] MEDS: Glucerna Carbsteady SHAKE Vanilla 8oz PO SCH ×4 (05:38→23:04)
--- NOTE | 2020-03-08 06:27 | NUR ---
Respiratory note: PT IS AWAKE, AND ALERT. NO RESPIRATORY DISTRESS NOTED. SPO2 98% ON RA, HR 95, RR 18, BS CLEAR/DIMINISHED BILATERALLY. PRN MEDNEB TX NOT INDICATED. PT INFORMED TO HAVE RN PAGE RESPIRATORY IF INCREASE WOB, SOB, OR WHEEZING OCCURS. TRACH IS CLEAN, AND DRY. NO SKIN IRRITATION, OR BREAKDOWN NOTED. GUARDS AT BEDSIDE.
[2020-03-08 08:43] VITALS: BP 115/74
--- NOTE | 2020-03-08 09:00 | NUR ---
BM PT HAS MODERATE SOFT BM
[2020-03-08] MEDS: FLUTICASONE PROP NASAL SPR 0.05 % (50MCG) 16GM EACHNOSTRI SCH (09:15)
[2020-03-08] MEDS: ADVAIR IN SCH ×2 (09:15→22:00)
[2020-03-08] MEDS: PANTOPRAZOLE 40 MG TAB PO SCH ×2 (09:15→23:04)
[2020-03-08] MEDS: LORATADINE 10 MG TAB PO SCH (09:15)
[2020-03-08] MEDS: ACCU-CHEK COMFORT CURVE STRIP VI SCH ×2 (09:16→22:40)
[2020-03-08] MEDS: MONTELUKAST SODIUM 10 MG TAB PO SCH (09:16)
[2020-03-08] MEDS: MORPHINE SULF INJ 2 MG/ML SYRINGE 1ML IV PRN ×4 (09:16→22:40)
[2020-03-08] MEDS: INSULIN LANTUS (GLARGINE) 1 /0.01ml (100units/ml) SC SCH (09:17)
--- NOTE | 2020-03-08 10:20 | NUR ---
DR TONY IS HERE AT BED SIDE FOLLOWING UP ON PT, REVIEW ABDOMEN CT, NEW ORDERS NOTED
[2020-03-08] MEDS ORDERED: GOLYTELY 4L KIT PO ONE (10:30)
[2020-03-08] MEDS: DIGOXIN (250MCG/ML) 2 ML AMPULE IV SCH (11:46)
--- NOTE | 2020-03-08 12:15 | NUR ---
GOLYTELY PT IS DRINKING GOLYTELY, TOLERATING WELL
--- NOTE | 2020-03-08 12:36 | NUR ---
DR CARABALLO IS HERE FOLLOWING UP ON PT WITH NEW ORDERS
[2020-03-08 13:00] VITALS: BP 113/77
--- NOTE | 2020-03-08 14:28 | NUR ---
NO BM YET, CONTINUE MONITORING
--- NOTE | 2020-03-08 15:30 | NUR ---
TRANSFER PT TO ROOM 212 A
[2020-03-08 17:00] VITALS: BP 110/76
--- NOTE | 2020-03-08 18:25 | NUR ---
NO BM YET, PT STATED I THROW UP SOME OF THE GOLYTELY, CONTINUE MONITORING
--- NOTE | 2020-03-08 18:32 | NUR ---
PAGE DR TONY TO LET HIM KNOW THAT THERE IS NO BM YET
--- NOTE | 2020-03-08 18:34 | NUR ---
SPOKE WITH DR TONY OVER THE PHONE, MADE AWARE THAT PT DRANK THE GOLYTELY BUT NO BM YET, SAID EVENTUALLY PT WILL HAVE BM
[2020-03-08 22:00] VITALS: BP 91/70
[2020-03-08] MEDS: ONDANSETRON HCL 4 MG/2 ML VIAL IV PRN (22:57)
[2020-03-08] MEDS: SENNA 8.6 MG TAB PO SCH (23:05)
[2020-03-09] MEDS: PIPERACILLIN-TAZOB 3.375GM 100 ML IV SCH ×5 (00:54→23:00)
--- NOTE | 2020-03-09 02:43 | NUR ---
TELEMETRY PATIENT CHANGED TO TELE #[id number]
[2020-03-09 05:00] VITALS: BP 95/66
[2020-03-09] MEDS: Glucerna Carbsteady SHAKE Vanilla 8oz PO SCH ×4 (06:00→22:59)
[2020-03-09] MEDS: METOCLOPRAMIDE HCL 5MG/ml INJ 2ml VIAL IV SCH ×3 (06:00→22:55)
[2020-03-09] MEDS: DOCUSATE SOD 100 MG CAP PO SCH ×3 (06:00→22:55)
--- NOTE | 2020-03-09 07:40 | NUR ---
Opening Shift Note Assumed care of patient, awake and alert. No S/S of distress/SOB or pain. Instructed on POC and to call for assist PRN, will continue to monitor for changes Q1hr and PRN. Bed locked in lowest position with two side rails up and call light in reach.
[2020-03-09] MEDS: SODIUM CHLORIDE 0.9% 1,000 ML IV SCH ×2 (08:06→18:42)
[2020-03-09 09:18] VITALS: BP 101/67
--- NOTE | 2020-03-09 09:40 | NUR ---
DR CHAVO THOAMS, GI TO FOLLOW UP .
[2020-03-09] MEDS: ADVAIR IN SCH ×2 (09:45→22:00)
[2020-03-09] MEDS: FLUTICASONE PROP NASAL SPR 0.05 % (50MCG) 16GM EACHNOSTRI SCH (09:45)
[2020-03-09] MEDS: MONTELUKAST SODIUM 10 MG TAB PO SCH (09:46)
[2020-03-09] MEDS: INSULIN LANTUS (GLARGINE) 1 /0.01ml (100units/ml) SC SCH (09:46)
[2020-03-09] MEDS: LORATADINE 10 MG TAB PO SCH (09:46)
[2020-03-09] MEDS: ACCU-CHEK COMFORT CURVE STRIP VI SCH ×2 (09:46→22:58)
[2020-03-09] MEDS: PANTOPRAZOLE 40 MG TAB PO SCH ×2 (09:46→22:55)
--- NOTE | 2020-03-09 10:00 | NUR ---
WOUND CARE NOTE: IN TO SEE PATIENT FOR QUICK SKIN ASSESSMENT. PATIENT HAS CURRENT ABBY SCORE OF 21. PATIENT IS ABLE TO SELF TURN/REPOSITION SELF, IS AMBULATING IN HALLWAY DAILY. PATIENT CONTINUES TO DISPLAY A COLLAGEN SCAR TO COCCYX, NO OPEN WOUND NOTED. PATIENT SHOULD CONTINUE TO WEAR OPTIFOAM GENTLE SACRAL DRESSING PREVENTATIVE/PROTECTION. WOUND CARE TEAM WILL CONTINUE TO MONITOR. SKIN/WOUND CARE PLAN UPDATED.
--- NOTE | 2020-03-09 10:30 | NUR ---
DR RAVINDER THOMAS DISCUSSED THE PLAN OF CARE WITH PATIENT.
[2020-03-09 13:00] VITALS: BP 102/68
[2020-03-09 17:25] VITALS: BP 103/74
[2020-03-09 18:55] VITALS: BP 103/71
--- NOTE | 2020-03-09 19:00 | NUR ---
Opening Shift Note Assumed care of patient, awake and alert. No S/S of distress/SOB or pain. Instructed on POC and to call for assist PRN, will continue to monitor.
--- NOTE | 2020-03-09 20:39 | NUR ---
Respiratory note: ASSESSED PT FOR PRN TX PT WAS AWAKE AND ALERT, NO RESP DISTRESS NOTED. HR 82, RR 16, SPO2 98% ON ROOM AIR. BS ARE CLEAR, NO INDICATION FOR TX AT THIS TIME. PT KNOWS TO HAVE RT PAGED IF TX IS NEEDED.
[2020-03-09 22:00] VITALS: BP 115/67
[2020-03-09] MEDS: SENNA 8.6 MG TAB PO SCH (22:57)
--- NOTE | 2020-03-09 23:43 | NUR ---
Patient asked for sleeping medication, he has been taking it, but the order was D/C, earlier today. Will call hospitalist to renew the order.
[2020-03-10] MEDS ORDERED: TEMAZEPAM 15 MG CAP ONE (00:12)
[2020-03-10 04:30] VITALS: BP 101/70
[2020-03-10] MEDS: SODIUM CHLORIDE 0.9% 1,000 ML IV SCH ×3 (04:36→23:37)
[2020-03-10] MEDS: MORPHINE SULF INJ 2 MG/ML SYRINGE 1ML IV PRN (04:37)
[2020-03-10] MEDS: METOCLOPRAMIDE HCL 5MG/ml INJ 2ml VIAL IV SCH ×3 (05:10→23:36)
[2020-03-10] MEDS: PIPERACILLIN-TAZOB 3.375GM 100 ML IV SCH (05:10)
[2020-03-10] MEDS: DOCUSATE SOD 100 MG CAP PO SCH ×3 (05:11→23:36)
[2020-03-10] MEDS: Glucerna Carbsteady SHAKE Vanilla 8oz PO SCH ×4 (05:11→23:36)
--- NOTE | 2020-03-10 06:53 | NUR ---
Respiratory note: HR 76, RR 16, SPO2 97% ON RA, BS CLEAR. PRN MED NEB TX NOT INDICATED. NO SIGNS OR SYMPTOMS OF RESPIRATORY DISTRESS NOTED AT THIS TIME. PT IS SLEEPING.
--- NOTE | 2020-03-10 07:18 | NUR ---
Patient resting in bed, unlabored breathing. Denies discomfort. Bed on the lowest position, call light with in reach. Report given to AM shift nurse.
[2020-03-10 08:54] VITALS: BP 117/73
[2020-03-10] MEDS: ADVAIR IN SCH ×2 (10:00→22:00)
[2020-03-10] MEDS: ACCU-CHEK COMFORT CURVE STRIP VI SCH ×2 (10:00→23:37)
[2020-03-10] MEDS: INSULIN LANTUS (GLARGINE) 1 /0.01ml (100units/ml) SC SCH (11:10)
[2020-03-10] MEDS: LORATADINE 10 MG TAB PO SCH (11:13)
[2020-03-10] MEDS: SULFAMETHOX W/TRIMETH(800/160MG) DS TAB PO SCH ×2 (11:14→23:36)
[2020-03-10] MEDS: MONTELUKAST SODIUM 10 MG TAB PO SCH (11:14)
[2020-03-10] MEDS: PANTOPRAZOLE 40 MG TAB PO SCH ×2 (11:14→23:37)
[2020-03-10] MEDS ORDERED: FLUCONAZOLE 100 MG TAB PO ONE (11:15)
--- NOTE | 2020-03-10 11:53 | NUR ---
Nutrition Follow-up Notes Wt.: 80.1 kg Pt reports diet changed to clear liquid d/t pt being const. Pt was given laxative and pt repots 4 BM 03/10. Pt po intake was 100% prior to diet change to CL and pt po intake continued to be 100% while on CL. Will monitor pt diet advance as pt reports he is hungry and would like oral diet. Est. Needs BW 81 [id number] kcals (20-25 kcal/kgBW). 101-126 gms/day (1.2-1.5 gm/kgBW low prealb). Will continue to monitor pertinent labs and reassess nutrient need prn. Labs: GLUC 110H, BUn 5L, Alb 2.4L Skin: Irwin scale 21 low risk, pt with pressure ulcers per industrial hygienist. refer to notes for details GI: Pt had 4 BMs 03/10 per industrial hygienist. pt on MOM prn PES: Altered nutrition related lab values r/t current medical condition aeb hyponatremia, elevated RFTs, hyperglycemia, hypocalcemia, elevated bilirubin severe hypoalbuminemia Will continue to monitor PO status and intake, skin status, pertinent labs and weight trend. F/u in 2-3 days. Rec.: 1.) continue assistance with meals. 2) Continue current plan of care.
[2020-03-10 13:00] VITALS: BP 106/72
[2020-03-10] MEDS: DIGOXIN (250MCG/ML) 2 ML AMPULE IV SCH (13:04)
--- NOTE | 2020-03-10 16:01 | NUR ---
Respiratory note: TRACH CARE PERFORMED, WITHOUT INCIDENT. PASSY NERI VALVE REMAINS IN PLACE.
[2020-03-10 16:50] VITALS: BP 126/81
--- NOTE | 2020-03-10 19:30 | NUR ---
Opening Shift Note Assumed care of patient, awake and alert. No S/S of distress/SOB or pain. Bed in lowest locked position, side rails up x2, call light within reach. Guards at bedside. Instructed on POC and to call for assist PRN, will continue to monitor.
--- NOTE | 2020-03-10 21:28 | NUR ---
Respiratory note: ASSESSED PT FOR PRN TX , PT WAS AWAKE AND ALERT, NO RESP DISTRESS NOTED. HR 85, RR16, SPO2 95% ON ROOM AIR. BS ARE CLEAR T/O. NO INDICATION FOR TX AT THIS TIME. PT KNOWS TO HAVE RT PAGED IF TX IS NEEDED. PT ON CONT, POX.
[2020-03-10 21:57] VITALS: BP 110/72
--- NOTE | 2020-03-10 22:45 | NUR ---
Respiratory note: TRACH CARE PERFORMED, WITHOUT INCIDENT. PASSY NERI VALVE REMAINS IN PLACE.
--- NOTE | 2020-03-10 23:00 | NUR ---
Blood sugar 66, patient given chicken broth and jello, tolerating well. No s/s of distress. Will continue to monitor.
[2020-03-10] MEDS: SENNA 8.6 MG TAB PO SCH (23:37)
[2020-03-10] MEDS: TEMAZEPAM 15 MG CAP PO PRN (23:55)
[2020-03-11 05:00] VITALS: BP 152/89
[2020-03-11] MEDS: DOCUSATE SOD 100 MG CAP PO SCH ×4 (06:41→22:39)
[2020-03-11] MEDS: METOCLOPRAMIDE HCL 5MG/ml INJ 2ml VIAL IV SCH ×3 (06:41→22:39)
[2020-03-11] MEDS: Glucerna Carbsteady SHAKE Vanilla 8oz PO SCH ×4 (06:41→22:00)
--- NOTE | 2020-03-11 07:20 | NUR ---
Patient lying in bed, eyes closed, respirations even and unlabored, appears asleep. Patient awakens to name and touch. No s/s of distress. Guards at bedside. Care endorsed to dayshift RN.
[2020-03-11 09:06] VITALS: BP 112/82
[2020-03-11] MEDS: ADVAIR IN SCH ×2 (10:00→22:00)
[2020-03-11] MEDS: SODIUM CHLORIDE 0.9% 1,000 ML IV SCH ×2 (10:00→20:00)
[2020-03-11] MEDS: ACCU-CHEK COMFORT CURVE STRIP VI SCH ×2 (10:00→22:00)
[2020-03-11] MEDS: INSULIN LANTUS (GLARGINE) 1 /0.01ml (100units/ml) SC SCH (10:00)
[2020-03-11] MEDS: LORATADINE 10 MG TAB PO SCH (11:26)
[2020-03-11] MEDS: FLUCONAZOLE 100 MG TAB PO SCH (11:26)
[2020-03-11] MEDS: MONTELUKAST SODIUM 10 MG TAB PO SCH (11:26)
[2020-03-11] MEDS: PANTOPRAZOLE 40 MG TAB PO SCH ×2 (11:26→22:39)
[2020-03-11] MEDS: SULFAMETHOX W/TRIMETH(800/160MG) DS TAB PO SCH ×2 (11:26→22:39)
[2020-03-11 12:32] VITALS: BP 111/76
[2020-03-11] MEDS: DIGOXIN (250MCG/ML) 2 ML AMPULE IV SCH (15:08)
--- NOTE | 2020-03-11 15:16 | NUR ---
Respiratory note: TRACH CARE DONE. STOMA SITE AND NECK AREA CLEANED. INNER CANULA CLEANED. PT SXN SMALL CLEAR/WHITE SECRETIONS. YONKER REPLACED. DRAIN SPONGE CHANGED. PT ON ROOM AIR SP02 98%. B/S ARE CLEAR. PT IN NO DISTRESS.
[2020-03-11] MEDS ORDERED: GOLYTELY 4L KIT PO SCH (16:00)
[2020-03-11 17:07] VITALS: BP 110/71
--- NOTE | 2020-03-11 19:00 | NUR ---
Opening Shift Note Assumed care of patient, awake and alert.2 guards on the bedside. No S/S of distress/SOB or pain. Instructed on POC and to call for assist PRN, will continue to monitor for changes Q1hr and PRN.
[2020-03-11 22:00] VITALS: BP 110/71
[2020-03-11] MEDS: SENNA 8.6 MG TAB PO SCH (22:39)
--- NOTE | 2020-03-11 23:15 | NUR ---
Respiratory note: TRACH CARE PERFORMED, WITHOUT INCIDENT. PASSY NERI VALVE REMAINS IN PLACE.
[2020-03-11 23:20] VITALS: BP 112/85
[2020-03-12] MEDS: TEMAZEPAM 15 MG CAP PO PRN ×2 (00:58→23:09)
[2020-03-12 05:00] VITALS: BP 107/71
[2020-03-12] MEDS: Glucerna Carbsteady SHAKE Vanilla 8oz PO SCH ×4 (06:00→21:45)
[2020-03-12] MEDS: SODIUM CHLORIDE 0.9% 1,000 ML IV SCH ×2 (06:02→18:07)
[2020-03-12] MEDS: DOCUSATE SOD 100 MG CAP PO SCH ×3 (06:02→21:49)
[2020-03-12] MEDS: METOCLOPRAMIDE HCL 5MG/ml INJ 2ml VIAL IV SCH ×3 (06:02→21:49)
--- NOTE | 2020-03-12 07:00 | NUR ---
Opening Shift Note Received report on the patient. Awake lying in bed. Patient shows no signs of distress at this time. Discussed the plan of care with the patient. Bed in lowest position, side rails up x2, and the call light is within reach.
[2020-03-12] MEDS ORDERED: SODIUM CHLORIDE LOCK 10 ML ONE (07:58)
[2020-03-12] MEDS ORDERED: diphenhdrAMINE HCL 50 MG/1 ML VL ONE (07:59)
[2020-03-12] MEDS ORDERED: NALOXONE HCL 0.4 MG/ML VIAL ONE (08:01)
[2020-03-12] MEDS ORDERED: FLUMAZENIL 0.1 MG/ML INJ 10ML MDV IV ONE (08:01)
--- NOTE | 2020-03-12 08:20 | NUR ---
PT IS AWAKE, ALERT AND ORIENTED. PT ABLE TO UNDERSTAND AND FOLLOW INDICATIONS. PT ON SEMI FOWLERS POSITION, TRACHEOSTOMY #6.0 SHILEY IN SITU PROPERLY SECURED AND IS PATENT. SPARE TRACHEOSTOMY UNIT AT BEDSIDE ALONG WITH OBTURATOR. PT IS ON RA, 97% O2 SATS, HR 88 BPM, RR18 BPM. BS ARE DIMINISHED TO AUSCULTATION, SKIN IS DRY AND WARM TO THE TOUCH. RESPIRATIONS ARE EVEN AND NON LABORED. INNER CANNULA WAS CLEANED, TRACH GAUZE REPLACED. CLEANED AROUND STOMA. CONTINUOUS PULSE OX AT BEDSIDE, PLUGGED TO RED OUTLET, ALARMS ARE FUNCTIONAL AND AUDIBLE. PT TOLERATING WELL. NO SOB OR ANY OTHER RESPIRATORY DISTRESS NOTICED. WILL CONTINUE TO MONITOR PT.
[2020-03-12 08:55] VITALS: BP 150/93
[2020-03-12] MEDS: fentaNYL CITRATE 100 MCG/2 ML VL ONE ×3 (09:14→09:20)
[2020-03-12] MEDS: MIDAZOLAM HCL 5 MG/ML-1ML VIAL ONE ×3 (09:14→09:20)
[2020-03-12] MEDS: INSULIN LANTUS (GLARGINE) 1 /0.01ml (100units/ml) SC SCH (10:00)
[2020-03-12] MEDS: ADVAIR IN SCH ×2 (10:00→22:00)
[2020-03-12] MEDS: SULFAMETHOX W/TRIMETH(800/160MG) DS TAB PO SCH ×2 (10:44→21:49)
[2020-03-12] MEDS: LORATADINE 10 MG TAB PO SCH (10:45)
[2020-03-12] MEDS: FLUCONAZOLE 100 MG TAB PO SCH (10:45)
[2020-03-12] MEDS: MONTELUKAST SODIUM 10 MG TAB PO SCH (10:45)
[2020-03-12] MEDS: PANTOPRAZOLE 40 MG TAB PO SCH ×2 (10:45→21:49)
[2020-03-12] MEDS: ACCU-CHEK COMFORT CURVE STRIP VI SCH ×2 (10:46→22:00)
[2020-03-12 11:49] LABS: Basophils # (auto) 0.1 10 ^3/uL (0-0.2); Hemoglobin 12.8 g/dL (13.5-17.5); Mean Corpuscular Volume 85.8 fL (80.0-100.0); Monocytes # (auto) 0.4 10 ^3/uL (0-1.3); Nucleated Red Blood Cells % 0.1 %
[2020-03-12 11:50] LABS: Basophils % (auto) 1.4 % (0.0-2.0); Eosinophils # (auto) 0.1 10 ^3/uL (0-0.8); Eosinophils % (auto) 2.3 % (0.0-7.0); Hematocrit 39.7 % (41.0-53.0); Lymphocytes # (auto) 1.2 10 ^3/uL (0.4-5.4); Lymphocytes % (auto) 19.8 % (10.0-50.0); Mean Corpuscular Hemoglobin 27.7 pg (28.0-32.0); Mean Corpuscular Hgb Conc. 32.3 g/dL (32.0-36.0); Monocytes % (auto) 7.4 % (0.0-12.0); Neutrophils # (auto) 4.2 10 ^3/uL (1.6-8.6); Neutrophils % (auto) 69.1 % (37.0-80.0); Platelet Count (auto) 617 10^3/uL (140-450); Red Blood Cells 4.63 10^6/uL (4.5-5.90)
[2020-03-12 11:57] LABS: INR 1.07 (0.9-1.15); Partial Thromboplastin Time 29.1 sec (23.64-32.05)
[2020-03-12 12:02] LABS: Albumin 2.6 g/dL (3.4-5.0)
[2020-03-12 12:07] LABS: BUN/Creatinine Ratio 1.5; Bilirubin, Total 0.4 mg/dL (0.2-1.0); Total Protein 7.3 g/dL (6.4-8.2)
[2020-03-12 13:00] VITALS: BP 120/88
--- NOTE | 2020-03-12 14:00 | NUR ---
Pt declined PT treatment today. Will attempt again tomorrow.
--- NOTE | 2020-03-12 14:29 | NUR ---
Nutrition Follow-up Notes Wt.: 80.1 kg Pt reports receiving colonoscopy today. Pt reports would like diet to advance d/t to being hungry. Pt with adequate intake of Clear liquid diet from 03/08-03/11 aeb pt with avg 79% po intake per RN note. Per pt chart diet advanced to Full Liq today. Will continue to monitor pt po intake and tolerance to diet as it advances. Est. Needs BW 81 [id number] kcals (20-25 kcal/kgBW). 101-126 gms/day (1.2-1.5 gm/kgBW low prealb). Will continue to monitor pertinent labs and reassess nutrient need prn. Labs: No new labs since 03/06 Skin: Irwin scale 21 low risk, pt with pressure ulcers per councilman. refer to notes for details GI: Pt had 1 BM 03/11 per councilman. pt on MOM prn PES: Altered nutrition related lab values r/t current medical condition aeb hyponatremia, elevated RFTs, hyperglycemia, hypocalcemia, elevated bilirubin severe hypoalbuminemia Will continue to monitor PO status and intake, skin status, pertinent labs and weight trend. F/u in 3-5 days. Rec.: 1.) continue assistance with meals. 2) Continue current plan of care.
[2020-03-12 17:15] VITALS: BP 122/71
--- NOTE | 2020-03-12 19:00 | NUR ---
Opening Shift Note Assumed care of patient, awake and alert. 2 guards on bedside. No S/S of distress/SOB or pain. Instructed on POC and to call for assist PRN, will continue to monitor for changes Q1hr and PRN.
--- NOTE | 2020-03-12 20:24 | NUR ---
Respiratory note: ASSESSED PT FOR PRN MED NEB TX. PS SHOWS NO S/S OF SOB OR RESPIRATORY DISTRESS. TX NOT INDICATED AT THIS TIME. INFORMED PT IF SOB OCCURS CONTACT RESPIRATORY. WILL CONTINUE TO MONITOR.
[2020-03-12] MEDS: SENNA 8.6 MG TAB PO SCH (21:49)
[2020-03-12 22:00] VITALS: BP 112/77
[2020-03-13] MEDS: SODIUM CHLORIDE 0.9% 1,000 ML IV SCH ×3 (02:00→22:43)
[2020-03-13 02:59] VITALS: BP 112/77
[2020-03-13 05:00] VITALS: BP 116/78
[2020-03-13] MEDS: DOCUSATE SOD 100 MG CAP PO SCH ×3 (06:52→22:44)
[2020-03-13] MEDS: METOCLOPRAMIDE HCL 5MG/ml INJ 2ml VIAL IV SCH ×3 (06:52→22:43)
[2020-03-13] MEDS: Glucerna Carbsteady SHAKE Vanilla 8oz PO SCH ×4 (06:53→22:44)
[2020-03-13 09:00] VITALS: BP 103/77
[2020-03-13] MEDS: ACCU-CHEK COMFORT CURVE STRIP VI SCH ×2 (10:00→22:57)
[2020-03-13] MEDS: INSULIN LANTUS (GLARGINE) 1 /0.01ml (100units/ml) SC SCH (10:00)
[2020-03-13] MEDS: ADVAIR IN SCH ×2 (10:00→22:00)
[2020-03-13] MEDS: PANTOPRAZOLE 40 MG TAB PO SCH ×2 (10:42→22:44)
[2020-03-13] MEDS: SULFAMETHOX W/TRIMETH(800/160MG) DS TAB PO SCH ×2 (10:42→22:43)
[2020-03-13] MEDS: MONTELUKAST SODIUM 10 MG TAB PO SCH (10:42)
[2020-03-13] MEDS: LORATADINE 10 MG TAB PO SCH (10:43)
[2020-03-13] MEDS: FLUCONAZOLE 100 MG TAB PO SCH (10:43)
--- NOTE | 2020-03-13 11:00 | NUR ---
Respiratory note: Assessed pt for prn medneb tx. HR 89, RR 20, SPO2 99% on room air. Breath sounds dim coarse. Medneb tx not indicated at this time. Deep tracheal suctioned for moderate thin clear secretions. Trach care completed without incident. Pt aware to call for RT if needed. No s/s of respiratory distress noted.
[2020-03-13 13:00] VITALS: BP 109/79
[2020-03-13] MEDS: DIGOXIN (250MCG/ML) 2 ML AMPULE IV SCH (14:14)
[2020-03-13 17:00] VITALS: BP 105/78
[2020-03-13] MEDS: LACTULOSE 20Gm/30ML SOLN PO SCH ×2 (18:09→23:13)
[2020-03-13 22:00] VITALS: BP 107/77
[2020-03-13] MEDS: SENNA 8.6 MG TAB PO SCH (22:44)
[2020-03-13] MEDS: TEMAZEPAM 15 MG CAP PO PRN (22:59)
[2020-03-14 05:00] VITALS: BP 97/67
[2020-03-14] MEDS: LACTULOSE 20Gm/30ML SOLN PO SCH ×4 (06:00→23:35)
[2020-03-14] MEDS: METOCLOPRAMIDE HCL 5MG/ml INJ 2ml VIAL IV SCH ×3 (06:25→23:06)
[2020-03-14] MEDS: Glucerna Carbsteady SHAKE Vanilla 8oz PO SCH ×4 (06:25→23:07)
[2020-03-14] MEDS: DOCUSATE SOD 100 MG CAP PO SCH ×3 (06:40→23:07)
--- NOTE | 2020-03-14 07:03 | NUR ---
closing note status unchanged. patient awake resting in bed with even and unlabored respirations, no s/s of distress. Bed in low locked position with side rails up x 2 and call light within reach. Endorsed care to day shift MICHAEL Cortes.
[2020-03-14 09:00] VITALS: BP 113/78
[2020-03-14] MEDS: LORATADINE 10 MG TAB PO SCH (09:52)
[2020-03-14] MEDS: FLUCONAZOLE 100 MG TAB PO SCH (09:52)
[2020-03-14] MEDS: MONTELUKAST SODIUM 10 MG TAB PO SCH (09:52)
[2020-03-14] MEDS: SULFAMETHOX W/TRIMETH(800/160MG) DS TAB PO SCH ×2 (09:52→23:07)
[2020-03-14] MEDS: ACCU-CHEK COMFORT CURVE STRIP VI SCH ×2 (09:52→22:00)
[2020-03-14] MEDS: PANTOPRAZOLE 40 MG TAB PO SCH ×2 (09:52→23:08)
[2020-03-14] MEDS: ADVAIR IN SCH ×2 (10:00→22:00)
[2020-03-14] MEDS: INSULIN LANTUS (GLARGINE) 1 /0.01ml (100units/ml) SC SCH (10:00)
[2020-03-14 13:00] VITALS: BP 103/73
[2020-03-14] MEDS: SODIUM CHLORIDE 0.9% 1,000 ML IV SCH (14:37)
--- NOTE | 2020-03-14 15:50 | NUR ---
Respiratory note: Assessed pt for prn medneb tx. SPOP2 98% HR 100 RR 16 b/s diminished Medneb tx not indicated at this time. no secretions noted when suctioning. Trach care completed without incident. Pt aware to call for RT if needed. No s/s of respiratory distress noted.
[2020-03-14 17:00] VITALS: BP 121/77
--- NOTE | 2020-03-14 18:46 | NUR ---
Respiratory note: ASSESSED PT FOR PRN MED NEB TX. PT IS CURRENTLY ON ROOM AIR: HR 97, RR 18, SPO2 98%. PT SHOWS NO S/S OF SOB OR RESPIRATORY DISTRESS. TX NOT INDICATED AT THIS TIME. PT IS CONNECTED TO CONT POX. WILL CONTINUE TO MONITOR.
[2020-03-14 22:00] VITALS: BP 113/80
[2020-03-14] MEDS: SENNA 8.6 MG TAB PO SCH (23:08)
[2020-03-14] MEDS: MORPHINE SULF INJ 2 MG/ML SYRINGE 1ML IV PRN (23:30)
[2020-03-14] MEDS: TEMAZEPAM 15 MG CAP PO PRN (23:31)
[2020-03-15] MEDS: MORPHINE SULF INJ 2 MG/ML SYRINGE 1ML IV PRN ×2 (02:35→09:11)
[2020-03-15] MEDS: SODIUM CHLORIDE 0.9% 1,000 ML IV SCH ×3 (03:39→13:07)
[2020-03-15 05:11] VITALS: BP 103/71
[2020-03-15] MEDS: METOCLOPRAMIDE HCL 5MG/ml INJ 2ml VIAL IV SCH ×3 (06:35→22:44)
[2020-03-15] MEDS: DOCUSATE SOD 100 MG CAP PO SCH ×3 (06:35→22:44)
[2020-03-15] MEDS: LACTULOSE 20Gm/30ML SOLN PO SCH ×4 (06:35→22:48)
[2020-03-15] MEDS: Glucerna Carbsteady SHAKE Vanilla 8oz PO SCH ×4 (06:36→22:44)
[2020-03-15 09:00] VITALS: BP 102/74
[2020-03-15] MEDS: FLUCONAZOLE 100 MG TAB PO SCH (09:11)
[2020-03-15] MEDS: MONTELUKAST SODIUM 10 MG TAB PO SCH (09:11)
[2020-03-15] MEDS: SULFAMETHOX W/TRIMETH(800/160MG) DS TAB PO SCH ×2 (09:11→22:44)
[2020-03-15] MEDS: LORATADINE 10 MG TAB PO SCH (09:12)
[2020-03-15] MEDS: PANTOPRAZOLE 40 MG TAB PO SCH ×2 (09:12→22:46)
[2020-03-15] MEDS: ACCU-CHEK COMFORT CURVE STRIP VI SCH ×2 (09:16→22:47)
[2020-03-15] MEDS: INSULIN LANTUS (GLARGINE) 1 /0.01ml (100units/ml) SC SCH (09:18)
[2020-03-15] MEDS: ADVAIR IN SCH ×2 (10:00→21:28)
--- NOTE | 2020-03-15 10:43 | NUR ---
Respiratory note: Assessed pt for prn medneb tx. HR 97, RR 16, SPO2 95% on room air. Breath sounds clear/dim t/o. Pt resting comfortably in bed, no s/s of distress noted. Medneb tx not indicated at this time.
--- NOTE | 2020-03-15 10:50 | NUR ---
Pt declined PT treatment due to fatigue and requested I return later.
--- NOTE | 2020-03-15 11:34 | NUR ---
Nutrition Follow-up Notes Wt.: 78.0 kg Pt was alert and oriented at rounds. Pt diet advanced to regular. PT with adequate po intake since diet advanced to regular aeb 75% po intake per RN doc 03/13-03/14. Pt reports const x 2 days, pt given lactulose Est. Needs BW 81 [id number] kcals (20-25 kcal/kgBW). 62-78g (0.8-1g/kg BW 78kg) . Will continue to monitor pertinent labs and reassess nutrient need prn. Labs: GLUC 135H, BUN 1L, Creat 0.68L, Alb 2.6L Skin: Irwin scale 20 low risk, pt with pressure ulcers per transmission engineer. refer to WC notes for details GI: Pt had 1 BM 03/13 per transmission engineer. pt on MOM prn PES: Altered nutrition related lab values r/t current medical condition aeb hyponatremia, elevated RFTs, hyperglycemia, hypocalcemia, elevated bilirubin severe hypoalbuminemia Will continue to monitor PO status and intake, skin status, pertinent labs and weight trend. F/u in 3-5 days. Rec.: 1.) continue assistance with meals. 2) Continue current plan of care.
[2020-03-15 13:00] VITALS: BP 105/75
[2020-03-15] MEDS: DIGOXIN (250MCG/ML) 2 ML AMPULE IV SCH (13:07)
--- NOTE | 2020-03-15 13:15 | NUR ---
Pt still reports fatigue and would like to hold PT today. Will attempt again tomorrow.
--- NOTE | 2020-03-15 16:00 | NUR ---
WOUND CARE NOTE: Wound care in to see patient for skin integrity monitoring. Patient continue resting on air bed in Rm. 214A. He's ambulatory with cane and self turning and repositioning. His Irwin score is 20. He's in no stated pain at this time. Skin/wound assessment done with the assistance of patient's nurse, MICHAEL Keys. No open wound noted. Patient's coccyx continue to display intact pink collagen scar tissue. New photograph of intact coccyx scar are taken for reference. Patient tolerated well. MICHAEL Keys and guards at bedside. RECOMMENDATION:Continuation of all wound care orders prescribed by MD, continue with skin/wound plan of care, continue monitoring by wound care while patient is hospitalized.
[2020-03-15 17:00] VITALS: BP 102/72
--- NOTE | 2020-03-15 20:40 | NUR ---
PT ASSESSED, SAT 95% ON RA, NO SOB NOTED. BS CLEAR BILATERALLY, PT IS AWAKE AND ALERT. TRACH SITE CLEAN. AIRWAY PROPERLY SECURED.
[2020-03-15 22:00] VITALS: BP 105/70
[2020-03-15] MEDS: SENNA 8.6 MG TAB PO SCH (22:46)
[2020-03-15] MEDS: TEMAZEPAM 15 MG CAP PO PRN (22:47)
[2020-03-16] MEDS: SODIUM CHLORIDE 0.9% 1,000 ML IV SCH ×3 (01:19→20:00)
[2020-03-16 03:52] VITALS: BP 105/70
--- NOTE | 2020-03-16 04:37 | NUR ---
TRACH CARE DONE WITHOUT INCIDENT, AIRWAY SECURED AND PATENT. TRACH SITE CLEANED, NO SKIN REDNESS OR BREAK DOWN NOTED.
[2020-03-16 05:00] VITALS: BP 113/73
[2020-03-16] MEDS: METOCLOPRAMIDE HCL 5MG/ml INJ 2ml VIAL IV SCH ×3 (06:12→21:19)
[2020-03-16] MEDS: DOCUSATE SOD 100 MG CAP PO SCH ×3 (06:12→21:19)
[2020-03-16] MEDS: LACTULOSE 20Gm/30ML SOLN PO SCH ×4 (06:12→21:21)
[2020-03-16] MEDS: Glucerna Carbsteady SHAKE Vanilla 8oz PO SCH ×4 (06:13→21:20)
[2020-03-16 08:09] VITALS: BP 98/68
[2020-03-16] MEDS: ADVAIR IN SCH ×2 (10:00→21:17)
[2020-03-16] MEDS: FLUCONAZOLE 100 MG TAB PO SCH (10:10)
[2020-03-16] MEDS: MONTELUKAST SODIUM 10 MG TAB PO SCH (10:10)
[2020-03-16] MEDS: PANTOPRAZOLE 40 MG TAB PO SCH ×2 (10:10→21:20)
[2020-03-16] MEDS: LORATADINE 10 MG TAB PO SCH (10:10)
[2020-03-16] MEDS: SULFAMETHOX W/TRIMETH(800/160MG) DS TAB PO SCH ×2 (10:10→21:19)
[2020-03-16] MEDS: ACCU-CHEK COMFORT CURVE STRIP VI SCH ×2 (10:11→21:20)
[2020-03-16] MEDS: INSULIN LANTUS (GLARGINE) 1 /0.01ml (100units/ml) SC SCH (10:16)
[2020-03-16 13:00] VITALS: BP 110/70
--- NOTE | 2020-03-16 17:02 | NUR ---
Trach care completed with no incident. PT awake and alert. Trach dry, no redness noted. Placed PT on 2 l/m NC.
[2020-03-16] MEDS: SENNA 8.6 MG TAB PO SCH (21:20)
[2020-03-16] MEDS: TEMAZEPAM 15 MG CAP PO PRN (21:22)
[2020-03-16] MEDS: MORPHINE SULF INJ 2 MG/ML SYRINGE 1ML IV PRN (21:23)
[2020-03-16 22:00] VITALS: BP 107/62
[2020-03-17] MEDS: MORPHINE SULF INJ 2 MG/ML SYRINGE 1ML IV PRN ×3 (00:47→22:00)
[2020-03-17] MEDS: METOCLOPRAMIDE HCL 5MG/ml INJ 2ml VIAL IV SCH ×3 (04:24→21:57)
[2020-03-17] MEDS: DOCUSATE SOD 100 MG CAP PO SCH ×3 (04:24→21:59)
[2020-03-17] MEDS: LACTULOSE 20Gm/30ML SOLN PO SCH ×3 (04:24→18:34)
[2020-03-17] MEDS: Glucerna Carbsteady SHAKE Vanilla 8oz PO SCH ×4 (04:25→21:59)
[2020-03-17 05:00] VITALS: BP 103/68
[2020-03-17] MEDS: SODIUM CHLORIDE 0.9% 1,000 ML IV SCH ×2 (06:00→16:39)
[2020-03-17 09:00] VITALS: BP 105/70
[2020-03-17] MEDS: ADVAIR IN SCH ×2 (10:00→21:58)
[2020-03-17] MEDS: INSULIN LANTUS (GLARGINE) 1 /0.01ml (100units/ml) SC SCH (10:00)
[2020-03-17] MEDS: FLUCONAZOLE 100 MG TAB PO SCH (10:33)
[2020-03-17] MEDS: SULFAMETHOX W/TRIMETH(800/160MG) DS TAB PO SCH ×2 (10:33→21:58)
[2020-03-17] MEDS: LORATADINE 10 MG TAB PO SCH (10:33)
[2020-03-17] MEDS: MONTELUKAST SODIUM 10 MG TAB PO SCH (10:33)
[2020-03-17] MEDS: PANTOPRAZOLE 40 MG TAB PO SCH ×2 (10:34→21:59)
[2020-03-17] MEDS: ACCU-CHEK COMFORT CURVE STRIP VI SCH ×2 (10:34→21:59)
[2020-03-17] MEDS: DIGOXIN 0.125 MG TAB PO SCH (12:09)
[2020-03-17 13:00] VITALS: BP 100/65
--- NOTE | 2020-03-17 15:00 | NUR ---
Trach clean and dry. PT awake and alert. Room air sats=97%, HT 75, RR=16.
[2020-03-17 17:00] VITALS: BP 106/66
--- NOTE | 2020-03-17 19:00 | NUR ---
Opening Shift Note Assumed care of patient, awake and alert. No S/S of distress/SOB or pain. Instructed on POC and to call for assist PRN, will continue to monitor for changes Q1hr and PRN. Side rails up x2. Bed locked in lowest position. Call light within reach. Tracheostomy tube in place.
[2020-03-17] MEDS: SENNA 8.6 MG TAB PO SCH (21:59)
--- NOTE | 2020-03-17 22:04 | NUR ---
RT NOTE PT WAS SEEN BY RT FOR TRACH ASSESSMENT. SPARE JUAN ANTONIO AT BEDSIDE. PT HAS BS POX #9 AT BEDSIDE. PT ON 2L NASAL CANNULA OFF AND ON. TRACH CARE DONE. CONT ORDERED Addendum: 03/17/20 at 2305 by Nancy Blake RT Amended: Links added.
[2020-03-18 00:03] VITALS: BP 101/69
[2020-03-18] MEDS: TEMAZEPAM 15 MG CAP PO PRN (00:05)
[2020-03-18 05:40] VITALS: BP 108/72
[2020-03-18] MEDS: Glucerna Carbsteady SHAKE Vanilla 8oz PO SCH ×4 (06:34→20:47)
[2020-03-18] MEDS: LACTULOSE 20Gm/30ML SOLN PO SCH ×4 (06:34→18:22)
[2020-03-18] MEDS: METOCLOPRAMIDE HCL 5MG/ml INJ 2ml VIAL IV SCH ×3 (06:34→20:47)
[2020-03-18] MEDS: SODIUM CHLORIDE 0.9% 1,000 ML IV SCH ×3 (06:34→20:46)
[2020-03-18] MEDS: DOCUSATE SOD 100 MG CAP PO SCH ×3 (06:34→20:47)
--- NOTE | 2020-03-18 07:31 | NUR ---
Endorsed care to day shift RN.
[2020-03-18 09:00] VITALS: BP 115/75
--- NOTE | 2020-03-18 09:00 | NUR ---
Respiratory note: PT ASSESSED FOR PRN MED NEB TX. PT DENIES ANY RESP DISTRESS. B/S ARE DIM. POX 96% ON R/A, HR 78, RR 16. TRACH IS CLEAN AND PATENT. PT AWARE TO HAVE RT PAGED IF NEEDED.
[2020-03-18] MEDS: ADVAIR IN SCH ×2 (10:00→20:46)
[2020-03-18] MEDS: MONTELUKAST SODIUM 10 MG TAB PO SCH (10:44)
[2020-03-18] MEDS: PANTOPRAZOLE 40 MG TAB PO SCH ×2 (10:44→20:47)
[2020-03-18] MEDS: SULFAMETHOX W/TRIMETH(800/160MG) DS TAB PO SCH ×2 (10:44→20:47)
[2020-03-18] MEDS: FLUCONAZOLE 100 MG TAB PO SCH (10:44)
[2020-03-18] MEDS: LORATADINE 10 MG TAB PO SCH (10:45)
[2020-03-18] MEDS: DIGOXIN 0.125 MG TAB PO SCH (10:45)
[2020-03-18] MEDS: ACCU-CHEK COMFORT CURVE STRIP VI SCH ×2 (11:10→22:06)
[2020-03-18] MEDS: INSULIN LANTUS (GLARGINE) 1 /0.01ml (100units/ml) SC SCH (11:11)
[2020-03-18 13:00] VITALS: BP 103/70
[2020-03-18 17:00] VITALS: BP 101/66
[2020-03-18] MEDS: MORPHINE SULF INJ 2 MG/ML SYRINGE 1ML IV PRN ×2 (18:23→20:48)
--- NOTE | 2020-03-18 19:19 | NUR ---
Opening Shift Note Assumed care of patient, awake and alert. No S/S of distress/SOB or pain. Instructed on POC and to call for assist PRN, will continue to monitor for changes Q1hr and PRN. Side rails up x2. Bed locked in lowest position. Call light within reach. Cuffs on bilateral ankles and left wrist. 2 guards at bedside.
[2020-03-18] MEDS: SENNA 8.6 MG TAB PO SCH (20:47)
[2020-03-18 22:00] VITALS: BP 118/81
--- NOTE | 2020-03-18 22:52 | NUR ---
Respiratory note: PT ASSESSED FOR PRN MED NEB TX. PT DENIES ANY RESP DISTRESS. B/S ARE DIM. POX 96% ON R/A, HR 116, RR 18. NO INDICATION FOR TX AT THIS TIME.TRACH IS CLEAN AND PATENT. PT AWARE TO HAVE RT PAGED IF NEEDED.PATIENT IS IN A LOT OF PAIN AT THIS TIME. PATIENT NOT CONNECTED TO BEDSIDE POX. TOOK POX OUT OF ROOM.
--- NOTE | 2020-03-18 22:55 | NUR ---
Called Dr. Margo Stapleton called re:Severe left sided abdominal pain . Received order of Dilaudid 0.5mg IV ONCE. Continue care.
[2020-03-18] MEDS ORDERED: HYDROmorphone HCL 2 MG/ML VL IV ONE (23:00)
[2020-03-19] MEDS: LACTULOSE 20Gm/30ML SOLN PO SCH ×4 (00:47→18:38)
[2020-03-19 03:11] VITALS: BP 118/81
[2020-03-19] MEDS: ONDANSETRON HCL 4 MG/2 ML VIAL IV PRN ×4 (03:12→18:39)
[2020-03-19] MEDS: MORPHINE SULF INJ 2 MG/ML SYRINGE 1ML IV PRN ×8 (03:12→21:33)
[2020-03-19 05:00] VITALS: BP 96/70
[2020-03-19] MEDS: DOCUSATE SOD 100 MG CAP PO SCH ×3 (05:38→21:31)
[2020-03-19] MEDS: Glucerna Carbsteady SHAKE Vanilla 8oz PO SCH ×4 (05:39→21:31)
[2020-03-19] MEDS: METOCLOPRAMIDE HCL 5MG/ml INJ 2ml VIAL IV SCH ×3 (05:39→21:31)
[2020-03-19] MEDS: SODIUM CHLORIDE 0.9% 1,000 ML IV SCH ×2 (08:52→15:50)
[2020-03-19 09:00] VITALS: BP 110/75
[2020-03-19] MEDS: INSULIN LANTUS (GLARGINE) 1 /0.01ml (100units/ml) SC SCH (10:00)
[2020-03-19] MEDS: ADVAIR IN SCH ×2 (10:00→22:00)
--- NOTE | 2020-03-19 10:25 | NUR ---
Pt declined PT treatment today due to stomach ache. Will attempt again tomorrow.
[2020-03-19] MEDS: MONTELUKAST SODIUM 10 MG TAB PO SCH (10:49)
[2020-03-19] MEDS: FLUCONAZOLE 100 MG TAB PO SCH (10:49)
[2020-03-19] MEDS: SULFAMETHOX W/TRIMETH(800/160MG) DS TAB PO SCH ×2 (10:49→21:31)
[2020-03-19] MEDS: PANTOPRAZOLE 40 MG TAB PO SCH ×2 (10:50→21:32)
[2020-03-19] MEDS: LORATADINE 10 MG TAB PO SCH (10:50)
[2020-03-19] MEDS: DIGOXIN 0.125 MG TAB PO SCH (10:54)
[2020-03-19] MEDS: ACCU-CHEK COMFORT CURVE STRIP VI SCH ×2 (10:54→21:32)
--- NOTE | 2020-03-19 11:52 | NUR ---
Nutrition Follow-up Notes Wt.: 77.0 kg Pt was alert and oriented at rounds. Pt diet advanced to regular. PT with inadequate intake aeb pt with 62% po intake x 3 days per RN note. Pt reports abd pain waiting for MD to check on pain causing him to have decreased appetite. Pt with Glucerna QID Est. Needs BW 81 [id number] kcals (20-25 kcal/kgBW). 62-78g (0.8-1g/kg BW 78kg) . Will continue to monitor pertinent labs and reassess nutrient need prn. Labs: GLUC 146H Skin: Irwin scale 19 low risk, pt with pressure ulcers per carbonizer. refer to WC notes for details GI: Pt had 1 BM 7/5 per carbonizer. pt on MOM prn PES: Altered nutrition related lab values r/t current medical condition aeb hyponatremia, elevated RFTs, hyperglycemia, hypocalcemia, elevated bilirubin severe hypoalbuminemia Will continue to monitor PO status and intake, skin status, pertinent labs and weight trend. F/u in 3-5 days. Rec.: 1.) continue assistance with meals. 2) Continue current plan of care.
[2020-03-19 12:26] VITALS: BP 103/72
[2020-03-19 17:09] VITALS: BP 110/68
--- NOTE | 2020-03-19 20:40 | NUR ---
Respiratory note: PT ASSESSED FOR PRN MED NEB TX. HR 105, RR 18, SPO2 98% ON RA. NO S/S OF ANY RESPIRATORY DISTRESS NOTED. ADVISED PT TO CALL IF TX IS NEEDED. RN AT BEDSIDE.
[2020-03-19] MEDS: SENNA 8.6 MG TAB PO SCH (21:32)
[2020-03-19] MEDS: TEMAZEPAM 15 MG CAP PO PRN (21:32)
[2020-03-19 22:00] VITALS: BP 119/69
--- NOTE | 2020-03-19 22:00 | NUR ---
PATIENT REFUSED ACCU CHECK. CONSEQUENCES EXPLAINED, BUT CONFUSED.
[2020-03-20] MEDS: LACTULOSE 20Gm/30ML SOLN PO SCH ×5 (00:10→23:09)
[2020-03-20] MEDS: SODIUM CHLORIDE 0.9% 1,000 ML IV SCH ×2 (03:38→13:34)
[2020-03-20 05:00] VITALS: BP 95/56
[2020-03-20] MEDS: METOCLOPRAMIDE HCL 5MG/ml INJ 2ml VIAL IV SCH ×3 (05:47→21:37)
[2020-03-20] MEDS: DOCUSATE SOD 100 MG CAP PO SCH ×3 (05:48→21:37)
[2020-03-20] MEDS: Glucerna Carbsteady SHAKE Vanilla 8oz PO SCH ×4 (05:48→21:37)
--- NOTE | 2020-03-20 07:45 | NUR ---
OPENING NOTE ASSUMED CARE OF PT. ALERT AND ORIENTED. NO S/S OF SOB/DISTRESS NOTED. BED SET TO LOWEST POSITION/LOCKED, BEDSIDE RAILS UP X2, CALL LIGHT WITHIN REACH. INSTRUCTED PT TO CALL FOR ASSISTANCE. UPDATED ON POC. WILL CONTINUE TO MONITOR Q1HR AND PRN.
[2020-03-20 09:00] VITALS: BP 97/67
[2020-03-20] MEDS: FLUCONAZOLE 100 MG TAB PO SCH (10:16)
[2020-03-20] MEDS: SULFAMETHOX W/TRIMETH(800/160MG) DS TAB PO SCH ×2 (10:16→21:37)
[2020-03-20] MEDS: LORATADINE 10 MG TAB PO SCH (10:16)
[2020-03-20] MEDS: MONTELUKAST SODIUM 10 MG TAB PO SCH (10:17)
[2020-03-20] MEDS: PANTOPRAZOLE 40 MG TAB PO SCH ×2 (10:17→21:37)
[2020-03-20] MEDS: ACCU-CHEK COMFORT CURVE STRIP VI SCH ×2 (10:17→21:57)
[2020-03-20] MEDS: DIGOXIN 0.125 MG TAB PO SCH (10:18)
[2020-03-20] MEDS: INSULIN LANTUS (GLARGINE) 1 /0.01ml (100units/ml) SC SCH (10:20)
[2020-03-20 13:00] VITALS: BP 92/64
[2020-03-20 16:48] VITALS: BP 91/63
--- NOTE | 2020-03-20 19:45 | NUR ---
assumed care, pt. awake, guards at bedside, no c/o pain, no sob.
[2020-03-20] MEDS: SENNA 8.6 MG TAB PO SCH (21:38)
[2020-03-20] MEDS: TEMAZEPAM 15 MG CAP PO PRN (21:38)
[2020-03-20 22:00] VITALS: BP 103/62
[2020-03-20] MEDS: ADVAIR IN SCH (22:00)
[2020-03-21] MEDS: SODIUM CHLORIDE 0.9% 1,000 ML IV SCH ×3 (00:20→14:45)
[2020-03-21 05:00] VITALS: BP 106/66
[2020-03-21] MEDS: Glucerna Carbsteady SHAKE Vanilla 8oz PO SCH ×4 (05:35→21:47)
[2020-03-21] MEDS: METOCLOPRAMIDE HCL 5MG/ml INJ 2ml VIAL IV SCH ×3 (05:35→21:47)
[2020-03-21] MEDS: DOCUSATE SOD 100 MG CAP PO SCH ×3 (05:35→21:47)
[2020-03-21] MEDS: LACTULOSE 20Gm/30ML SOLN PO SCH ×4 (06:16→23:56)
[2020-03-21 09:00] VITALS: BP 113/71
[2020-03-21] MEDS: ACCU-CHEK COMFORT CURVE STRIP VI SCH ×2 (10:00→21:48)
[2020-03-21] MEDS: ADVAIR IN SCH ×2 (10:00→21:46)
[2020-03-21] MEDS: LORATADINE 10 MG TAB PO SCH (10:52)
[2020-03-21] MEDS: MONTELUKAST SODIUM 10 MG TAB PO SCH (10:52)
[2020-03-21] MEDS: PANTOPRAZOLE 40 MG TAB PO SCH ×2 (10:52→21:47)
[2020-03-21] MEDS: FLUCONAZOLE 100 MG TAB PO SCH (10:52)
[2020-03-21] MEDS: SULFAMETHOX W/TRIMETH(800/160MG) DS TAB PO SCH (10:52)
[2020-03-21] MEDS: DIGOXIN 0.125 MG TAB PO SCH (10:53)
[2020-03-21] MEDS: INSULIN LANTUS (GLARGINE) 1 /0.01ml (100units/ml) SC SCH (10:57)
--- NOTE | 2020-03-21 11:27 | NUR ---
RT NOTE: PRN BREATHING TX. NOT INDICATED AT THIS TIME. NO S/S OF RESPIRATORY DISTRESS NOTED. PT. DENIES ANY SOB. PT. HR 110, RR 20, POX 98% R/A. PT. AWARE TO NOTIFY RN IF BREATHING TX. IS NEEDED. GUARDS AT BEDSIDE.
[2020-03-21 13:00] VITALS: BP 111/74
--- NOTE | 2020-03-21 16:09 | NUR ---
RT NOTE: TRACH CARE PERFORMED BY STERILE PROCEDURE WITHOUT INCIDENT. INNER CANNULA AND STOMA SITE CLEANED. DRAIN SPONGE CHANGED. PT. TOLERATED WELL. SPEAKING VALVE IN PLACE. NO S/S OF RESPIRATORY DISTRESS NOTED. GUARDS AT BEDSIDE.
[2020-03-21 16:45] VITALS: BP 118/79
--- NOTE | 2020-03-21 19:35 | NUR ---
ASSUMED CARE, PT. AWAKE, GUARD AT BEDSIDE, NOT IN DISTRESS.
[2020-03-21] MEDS: MORPHINE SULF INJ 2 MG/ML SYRINGE 1ML IV PRN ×2 (20:20→22:46)
[2020-03-21 20:34] VITALS: BP 118/79
[2020-03-21] MEDS: SENNA 8.6 MG TAB PO SCH (21:47)
[2020-03-21] MEDS: TEMAZEPAM 15 MG CAP PO PRN (21:48)
[2020-03-21 22:00] VITALS: BP 125/79
--- NOTE | 2020-03-21 22:00 | NUR ---
PT. T- 100.4, COOLING MEASURES APPLIED, BLANKET REMOVED, TO KEEP MONITOR.
[2020-03-22] MEDS: MORPHINE SULF INJ 2 MG/ML SYRINGE 1ML IV PRN ×3 (01:01→20:47)
[2020-03-22 05:00] VITALS: BP 126/79
[2020-03-22] MEDS: LACTULOSE 20Gm/30ML SOLN PO SCH ×4 (05:36→23:26)
[2020-03-22] MEDS: METOCLOPRAMIDE HCL 5MG/ml INJ 2ml VIAL IV SCH ×3 (05:36→22:07)
[2020-03-22] MEDS: DOCUSATE SOD 100 MG CAP PO SCH ×3 (05:36→22:07)
[2020-03-22] MEDS: Glucerna Carbsteady SHAKE Vanilla 8oz PO SCH ×4 (05:36→22:00)
[2020-03-22] MEDS: SODIUM CHLORIDE 0.9% 1,000 ML IV SCH ×3 (05:37→22:17)
--- NOTE | 2020-03-22 07:59 | NUR ---
PRN [place] TX NOT INDICATED AT THIS TIME. PT IS AWAKE, ALERT AND ORIENTED. PT ON SEMI FOWLERS POSITION. TRACHEOSTOMY #6.0 IN SITU PROPERLY SECURED AND IS PATENT. PT IS ON RA. 96% O2 SATS, HR 109 BPM, RR19 BPM. BS ARE DIMINISHED TO AUSCULTATION. RESPIRATION IS EVEN AND NON LABORED. PT DENIES SOB OR ANY OTHER RESPIRATORY DISTRESS. SPARE OF TRACHEOSTOMY AT BEDSIDE ALONG WITH OBTURATOR. SPEAKING VALVE IN PLACE. WILL CONTINUE TO MONITOR PT.
[2020-03-22 09:00] VITALS: BP 103/70
[2020-03-22] MEDS: ADVAIR IN SCH ×2 (10:00→22:00)
[2020-03-22] MEDS: PANTOPRAZOLE 40 MG TAB PO SCH ×2 (10:21→22:07)
[2020-03-22] MEDS: LORATADINE 10 MG TAB PO SCH (10:21)
[2020-03-22] MEDS: MONTELUKAST SODIUM 10 MG TAB PO SCH (10:22)
[2020-03-22] MEDS: DIGOXIN 0.125 MG TAB PO SCH (10:23)
[2020-03-22] MEDS: INSULIN LANTUS (GLARGINE) 1 /0.01ml (100units/ml) SC SCH (10:27)
[2020-03-22] MEDS: ACCU-CHEK COMFORT CURVE STRIP VI SCH ×2 (10:28→22:08)
--- NOTE | 2020-03-22 11:10 | NUR ---
WOUND CARE NOTE: PATIENT IS BEING MONITORED FOR SKIN INTEGRITY BY WOUND CARE TEAM. PATIENT CONTINUES TO REST ON SPECIALTY AIR MATTRESS PREVENTATIVE. HIS CURRENT ABBY SCORE IS 19. PATIENT CAN SELF TURN/REPOSITION SELF WITH NO ASSISTANCE BY STAFF. PATIENT IS FULLY AMBULATORY. PATIENT CONTINUES TO HAVE INTACT COLLAGEN SCAR TO COCCYX. NO OPEN WOUND RECOMMEND: CONTINUATION WITH WOUND CARE ORDERS PREVIOUSLY PRESCRIBED BY . WOUND CARE TEAM WILL CONTINUE TO MONITOR.
--- NOTE | 2020-03-22 11:28 | NUR ---
Nutrition Follow-up Notes Wt.: 78.9 kg Pt was not in room at time of rounds. Pt appetite is good aeb pt with adequate po intake aeb pt with 75% po intake avg x 2 days per RN note. Pt with Glucerna QID Est. Needs BW 81 [id number] kcals (20-25 kcal/kgBW). 62-78g (0.8-1g/kg BW 78kg) . Will continue to monitor pertinent labs and reassess nutrient need prn. Labs: GLUC 162H Skin: Irwin scale 20 low risk, pt with pressure ulcers per supervisor hot strip mill. refer to notes for details GI: Pt had 1 BM 03/22 per supervisor hot strip mill. pt on MOM prn PES: Altered nutrition related lab values r/t current medical condition aeb hyponatremia, elevated RFTs, hyperglycemia, hypocalcemia, elevated bilirubin severe hypoalbuminemia Will continue to monitor PO status and intake, skin status, pertinent labs and weight trend. F/u in 3-5 days. Rec.: 1.) continue assistance with meals. 2) Continue current plan of care.
[2020-03-22 13:00] VITALS: BP 108/77
[2020-03-22 17:17] VITALS: BP 109/71
--- NOTE | 2020-03-22 19:40 | NUR ---
Respiratory note: PT ASSESSED FOR PRN MED NEB TX. HR 99, RR 16, SPO2 96% ON RA. NO S/S OF ANY RESPIRATORY DISTRESS NOTED. ADVISED PT TO CALL IF TX IS NEEDED.
[2020-03-22 22:00] VITALS: BP 105/74
[2020-03-22] MEDS: TEMAZEPAM 15 MG CAP PO PRN (22:06)
[2020-03-22] MEDS: SENNA 8.6 MG TAB PO SCH (22:06)
[2020-03-23 05:00] VITALS: BP 110/67
[2020-03-23] MEDS: METOCLOPRAMIDE HCL 5MG/ml INJ 2ml VIAL IV SCH ×3 (05:13→20:56)
[2020-03-23] MEDS: DOCUSATE SOD 100 MG CAP PO SCH ×3 (05:14→20:55)
[2020-03-23] MEDS: LACTULOSE 20Gm/30ML SOLN PO SCH ×3 (05:14→18:21)
[2020-03-23] MEDS: Glucerna Carbsteady SHAKE Vanilla 8oz PO SCH ×4 (05:14→20:57)
[2020-03-23 05:22] LABS: Basophils # (auto) 0 10 ^3/uL (0-0.2); Eosinophils # (auto) 0.2 10 ^3/uL (0-0.8); Eosinophils % (auto) 4.8 % (0.0-7.0); Hematocrit 32.1 % (41.0-53.0); Hemoglobin 10.5 g/dL (13.5-17.5); Lymphocytes # (auto) 1.2 10 ^3/uL (0.4-5.4); Lymphocytes % (auto) 24.4 % (10.0-50.0); Mean Corpuscular Hemoglobin 27.8 pg (28.0-32.0); Mean Corpuscular Hgb Conc. 32.8 g/dL (32.0-36.0); Mean Corpuscular Volume 84.7 fL (80.0-100.0); Monocytes # (auto) 0.5 10 ^3/uL (0-1.3); Monocytes % (auto) 9.6 % (0.0-12.0); Neutrophils % (auto) 60.2 % (37.0-80.0); Nucleated Red Blood Cells % 0.1 %; Platelet Count (auto) 415 10^3/uL (140-450)
[2020-03-23 05:38] LABS: Albumin 2.1 g/dL (3.4-5.0); Calcium 8.2 mg/dL (8.5-10.1); Potassium 3.7 mmol/L (3.5-5.1)
[2020-03-23 05:41] LABS: BUN/Creatinine Ratio 9.4
[2020-03-23 05:43] LABS: Bilirubin, Total 0.2 mg/dL (0.2-1.0); Total Protein 6.5 g/dL (6.4-8.2)
[2020-03-23 08:30] VITALS: BP 110/64
[2020-03-23] MEDS: LORATADINE 10 MG TAB PO SCH (09:59)
[2020-03-23] MEDS: PANTOPRAZOLE 40 MG TAB PO SCH ×2 (10:00→20:55)
[2020-03-23] MEDS: ADVAIR IN SCH ×2 (10:00→21:58)
[2020-03-23] MEDS: MONTELUKAST SODIUM 10 MG TAB PO SCH (10:00)
[2020-03-23] MEDS: DIGOXIN 0.125 MG TAB PO SCH (10:00)
[2020-03-23] MEDS: INSULIN LANTUS (GLARGINE) 1 /0.01ml (100units/ml) SC SCH (10:01)
[2020-03-23] MEDS: ACCU-CHEK COMFORT CURVE STRIP VI SCH ×2 (10:01→21:59)
[2020-03-23] MEDS: MORPHINE SULF INJ 2 MG/ML SYRINGE 1ML IV PRN ×5 (10:08→20:49)
--- NOTE | 2020-03-23 10:50 | NUR ---
Respiratory note: Assessed pt for prn medneb tx. HR 105, RR 22, SPO2 96% on room air. Breath sounds dim coarse crackles, deep tracheal suctioned for small thin clear secretions, breath sounds clear/dim after suctioning. No s/s of distress noted. Medneb tx not indicated at this time. Pt with tracheostomy 6.0 shiley, stoma asymptomatic, cuff deflated. Pt complaining of loud rattling noise occurring when he puts on the speaking valve. Assessed valve, appears to be intact. Trach care done without incident. Noise no longer noted after cleaning the inner cannula. Advised pt to call for RT if the noise returns again. Will continue to monitor.
[2020-03-23] MEDS: SODIUM CHLORIDE 0.9% 1,000 ML IV SCH (11:44)
[2020-03-23 12:30] VITALS: BP 116/82
[2020-03-23 17:21] VITALS: BP 116/80
[2020-03-23] MEDS: ONDANSETRON HCL 4 MG/2 ML VIAL IV PRN (18:21)
--- NOTE | 2020-03-23 18:32 | NUR ---
PT UPSET BECAUSE HE COULD NOT EAT. HE PULLED SUPRAPUBIC CATHETER, KICKED THE CHEST TUBE BOX. REDIRECTED PT THE REASON HE IS NPO. PT STATED " I DONT CARE, GET OUT MY ROOM". UNABLE TO MEASURE THE CORRECT AMOUNT OF OUTPUT FROM THE CHEST TUBE. Addendum: 03/23/20 at 1844 by Gianluca Michael RN RN PLEASE DISREGARD THIS NOTE, WRONG PT.
--- NOTE | 2020-03-23 18:40 | NUR ---
Respiratory note: ASSESSED PT FOR PRN MED NEB AT THIS TIME, PT DENIES SOB AT THIS TIME, NO RESP DISTRESS NOTED, NO TX INDICATED, PULSE OX 94% ON RA, HR 114, RR 18
[2020-03-23] MEDS: SENNA 8.6 MG TAB PO SCH (20:55)
[2020-03-23] MEDS: TEMAZEPAM 15 MG CAP PO PRN (21:04)
[2020-03-23 22:00] VITALS: BP 100/70
[2020-03-24 05:00] VITALS: BP 96/72
[2020-03-24] MEDS: LACTULOSE 20Gm/30ML SOLN PO SCH ×4 (05:33→18:17)
[2020-03-24] MEDS: METOCLOPRAMIDE HCL 5MG/ml INJ 2ml VIAL IV SCH ×3 (05:34→21:50)
[2020-03-24] MEDS: DOCUSATE SOD 100 MG CAP PO SCH ×3 (05:34→21:49)
[2020-03-24] MEDS: Glucerna Carbsteady SHAKE Vanilla 8oz PO SCH ×4 (05:35→21:51)
[2020-03-24 09:00] VITALS: BP 103/74
[2020-03-24] MEDS: ACCU-CHEK COMFORT CURVE STRIP VI SCH ×2 (10:00→21:55)
[2020-03-24] MEDS: ADVAIR IN SCH ×2 (10:00→21:55)
--- NOTE | 2020-03-24 10:00 | NUR ---
Pt requested PM PT treatment. Will attempt again.
[2020-03-24] MEDS: PANTOPRAZOLE 40 MG TAB PO SCH ×2 (12:42→21:49)
[2020-03-24] MEDS: LORATADINE 10 MG TAB PO SCH (12:42)
[2020-03-24] MEDS: MONTELUKAST SODIUM 10 MG TAB PO SCH (12:43)
[2020-03-24] MEDS: DIGOXIN 0.125 MG TAB PO SCH (12:44)
[2020-03-24 13:52] VITALS: BP 121/70
--- NOTE | 2020-03-24 14:00 | NUR ---
Pt declined 2nd attempt at PT treatment. Will attempt tomorrow.
[2020-03-24] MEDS: INSULIN LANTUS (GLARGINE) 1 /0.01ml (100units/ml) SC SCH (14:10)
--- NOTE | 2020-03-24 14:10 | NUR ---
Respiratory note: PT ASSESSED FOR PRN MED NEB TX. HR 94, RR 18, SPO2 96% ON RA. NO S/S OF ANY RESPIRATORY DISTRESS NOTED. ADVISED PT TO CALL IF TX IS NEEDED. TRACH CARE DONE. SEE CHARTING.
[2020-03-24] MEDS: MORPHINE SULF INJ 2 MG/ML SYRINGE 1ML IV PRN ×3 (15:36→21:50)
[2020-03-24 17:00] VITALS: BP 105/74
[2020-03-24] MEDS: SENNA 8.6 MG TAB PO SCH (21:49)
[2020-03-24] MEDS: TEMAZEPAM 15 MG CAP PO PRN (21:50)
[2020-03-24 22:00] VITALS: BP 107/73
[2020-03-25] MEDS: LACTULOSE 20Gm/30ML SOLN PO SCH ×5 (00:22→23:10)
[2020-03-25 04:18] VITALS: BP 107/73
[2020-03-25 05:00] VITALS: BP 114/73
[2020-03-25] MEDS: Glucerna Carbsteady SHAKE Vanilla 8oz PO SCH ×4 (06:00→20:34)
[2020-03-25] MEDS: METOCLOPRAMIDE HCL 5MG/ml INJ 2ml VIAL IV SCH ×3 (06:19→20:30)
[2020-03-25] MEDS: DOCUSATE SOD 100 MG CAP PO SCH ×3 (06:19→20:31)
[2020-03-25 08:00] VITALS: BP 113/75
--- NOTE | 2020-03-25 08:00 | NUR ---
OPENING SHIFT NOTE ASSUMED CARE OF PATIENT AWAKE AND ALERT. NO S/S OF DISTRESS NOTED OR COMPLAINTS OF PAIN. PATIENT UPDATED ON POC FOR THE DAY AND ALL QUESTIONS ANSWERED. BED IS IN LOWEST, LOCKED POSITION WITH SIDE RAILS UP X2 AND CALL LIGHT WITHIN REACH. GUARDS ARE AT BEDSIDE FOR SAFETY. WILL CONTINUE TO MONITOR Q1H AND PRN.
[2020-03-25] MEDS: ADVAIR IN SCH ×2 (10:00→20:34)
[2020-03-25] MEDS: LORATADINE 10 MG TAB PO SCH (10:34)
[2020-03-25] MEDS: MONTELUKAST SODIUM 10 MG TAB PO SCH (10:35)
[2020-03-25] MEDS: DIGOXIN 0.125 MG TAB PO SCH (10:35)
[2020-03-25] MEDS: PANTOPRAZOLE 40 MG TAB PO SCH ×2 (10:35→20:31)
[2020-03-25] MEDS: INSULIN LANTUS (GLARGINE) 1 /0.01ml (100units/ml) SC SCH (10:36)
[2020-03-25] MEDS: MORPHINE SULF INJ 2 MG/ML SYRINGE 1ML IV PRN ×4 (10:36→20:38)
[2020-03-25] MEDS: ACCU-CHEK COMFORT CURVE STRIP VI SCH ×2 (10:36→20:33)
[2020-03-25 12:00] VITALS: BP 107/73
[2020-03-25] MEDS: ONDANSETRON HCL 4 MG/2 ML VIAL IV PRN (13:53)
--- NOTE | 2020-03-25 14:55 | NUR ---
Nutrition Follow-up Notes Wt.: 78.8 kg Pt is with a Regular diet, appetite is good aeb pt with 90% PO intake noted on 03/24, and pt eating meals given him after 03/24, but with no % PO intake noted. Pt also with Glucerna QID. Will continue to monitor PO status, skin status, pertinent labs and weight trends. Will f/u in 3-5 days. Est. Needs BW 81 [id number] kcals (20-25 kcal/kgBW). 62-78g protein (0.8-1g/kg BW 78kg) . Will continue to monitor pertinent labs and reassess nutrient need prn. Labs: POC GLUC 114H, A1c 10.8H, Alb 2.6L Skin: Irwin scale 18 mod risk, pt with pressure ulcers per hospital security officer. refer to WC notes for details GI: Pt had 1 BM 03/24 per hospital security officer. pt on MOM prn PES: Altered nutrition related lab values r/t current medical condition aeb hyponatremia, elevated RFTs, hyperglycemia, hypocalcemia, elevated bilirubin severe hypoalbuminemia Will continue to monitor PO status and intake, skin status, pertinent labs and weight trend. F/u in 3-5 days. Rec.: 1.) continue assistance with meals. 2) Continue current plan of care.
[2020-03-25 17:00] VITALS: BP 101/71
--- NOTE | 2020-03-25 18:07 | NUR ---
AT BEDSIDE DR GRIDER AT BEDSIDE EVALUATING PATIENT.
--- NOTE | 2020-03-25 18:25 | NUR ---
RN COMMUNICATED PT IS TO BE DOWNSIZED FROM SIZE 6-SHILEY TRACH TO A SIZE 4-CUFFLESS TRACH. WILL CHECK IF WE HAVE IN STOCK. RT LEAD AFSHIN Christensen CONFIRMED NO SIZE 4 SHILEY ARE IN STOCK.
--- NOTE | 2020-03-25 18:32 | NUR ---
SPOKE TO MD GRIDER. HE WOULD LIKE TO ASK MY DIRECTOR IF IT POSSIBLE TO ORDER AND HOW SOON WILL THEY BE AVAILABLE.
--- NOTE | 2020-03-25 18:40 | NUR ---
COMMUNICATED TO RT LEAD AFSHIN Christensen REGARDING MD BASS QUESTIONS. RT LEAD WILL CALL ME BACK AFTER HE SPEAKS TO LEIDY- DIRECTOR.
--- NOTE | 2020-03-25 18:42 | NUR ---
RT LEAD AFSHIN Christensen COMMUNICATED TO DIRECTOR. LATEST WE CAN HAVE THE TRACHS MD GRIDER IS REQUESTING IS BY WEDNESDAY. MADE AWARE.
[2020-03-25 22:00] VITALS: BP 113/68
[2020-03-25] MEDS: TEMAZEPAM 15 MG CAP PO PRN (23:12)
[2020-03-25] MEDS: SENNA 8.6 MG TAB PO SCH (23:13)
[2020-03-26 05:00] VITALS: BP 112/69
[2020-03-26] MEDS: LACTULOSE 20Gm/30ML SOLN PO SCH ×3 (05:31→17:41)
[2020-03-26] MEDS: METOCLOPRAMIDE HCL 5MG/ml INJ 2ml VIAL IV SCH ×3 (05:31→21:59)
[2020-03-26] MEDS: DOCUSATE SOD 100 MG CAP PO SCH ×3 (05:31→21:59)
[2020-03-26] MEDS: Glucerna Carbsteady SHAKE Vanilla 8oz PO SCH ×4 (05:31→22:00)
[2020-03-26 08:00] VITALS: BP 101/73
--- NOTE | 2020-03-26 08:00 | NUR ---
OPENING SHIFT NOTE ASSUMED CARE OF PATIENT AWAKE AND ALERT. NO S/S OF DISTRESS NOTED. PATIENT UPDATED ON POC FOR THE DAY AND ALL QUESTIONS ANSWERED. BED IS IN LOWEST, LOCKED POSITION WITH SIDE RAILS UP X2 AND CALL LIGHT WITHIN REACH. GUARDS ARE AT BEDSIDE FOR SAFETY. WILL CONTINUE TO MONITOR Q1H AND PRN.
[2020-03-26] MEDS: MORPHINE SULF INJ 2 MG/ML SYRINGE 1ML IV PRN ×5 (08:26→21:45)
[2020-03-26] MEDS: ONDANSETRON HCL 4 MG/2 ML VIAL IV PRN ×2 (08:26→14:08)
[2020-03-26] MEDS: LORATADINE 10 MG TAB PO SCH (09:45)
[2020-03-26] MEDS: DIGOXIN 0.125 MG TAB PO SCH (09:46)
[2020-03-26] MEDS: MONTELUKAST SODIUM 10 MG TAB PO SCH (09:46)
[2020-03-26] MEDS: PANTOPRAZOLE 40 MG TAB PO SCH ×2 (09:46→22:00)
[2020-03-26] MEDS: ACCU-CHEK COMFORT CURVE STRIP VI SCH ×2 (09:47→22:36)
[2020-03-26] MEDS: ADVAIR IN SCH ×2 (09:47→22:00)
[2020-03-26] MEDS: INSULIN LANTUS (GLARGINE) 1 /0.01ml (100units/ml) SC SCH (09:47)
[2020-03-26 12:00] VITALS: BP 111/76
[2020-03-26 15:03] LABS: Basophils # (auto) 0.1 10 ^3/uL (0-0.2); Basophils % (auto) 0.6 % (0.0-2.0); Eosinophils # (auto) 0 10 ^3/uL (0-0.8); Hemoglobin 11.6 g/dL (13.5-17.5)
[2020-03-26 15:05] LABS: Eosinophils % (auto) 0.5 % (0.0-7.0); Hematocrit 36.2 % (41.0-53.0); Lymphocytes % (auto) 19.7 % (10.0-50.0); Mean Corpuscular Hemoglobin 27.1 pg (28.0-32.0); Mean Corpuscular Hgb Conc. 32.1 g/dL (32.0-36.0); Mean Corpuscular Volume 84.4 fL (80.0-100.0); Monocytes # (auto) 0.7 10 ^3/uL (0-1.3); Monocytes % (auto) 7.4 % (0.0-12.0); Neutrophils # (auto) 7.2 10 ^3/uL (1.6-8.6); Neutrophils % (auto) 71.8 % (37.0-80.0); Platelet Count (auto) 484 10^3/uL (140-450); Red Blood Cells 4.29 10^6/uL (4.5-5.90); Red Cell Distribution Width 15.5 % (11.8-14.3)
[2020-03-26 15:18] LABS: Albumin 2.3 g/dL (3.4-5.0); Calcium 8.6 mg/dL (8.5-10.1)
[2020-03-26 15:25] LABS: Bilirubin, Total 0.3 mg/dL (0.2-1.0); Total Protein 7.4 g/dL (6.4-8.2)
[2020-03-26 17:00] VITALS: BP 104/68
[2020-03-26 22:00] VITALS: BP 105/67
[2020-03-26] MEDS: SENNA 8.6 MG TAB PO SCH (22:00)
[2020-03-27] MEDS: LACTULOSE 20Gm/30ML SOLN PO SCH ×3 (01:25→11:59)
[2020-03-27 05:00] VITALS: BP 99/64
[2020-03-27] MEDS: METOCLOPRAMIDE HCL 5MG/ml INJ 2ml VIAL IV SCH ×3 (06:03→23:24)
[2020-03-27] MEDS: Glucerna Carbsteady SHAKE Vanilla 8oz PO SCH ×3 (06:04→22:00)
[2020-03-27] MEDS: DOCUSATE SOD 100 MG CAP PO SCH ×3 (06:04→22:00)
--- NOTE | 2020-03-27 08:30 | NUR ---
OPENING SHIFT NOTE: PATIENT ASLEEP IN BED, EASILY AWOKEN, A/OX4 RESPIRATIONS EVEN AND UNLABORED. PATIENT DENIES ANY PAIN AT THIS TIME. UPDATED ON PLAN OF CARE. CALL LIGHT WITHIN REACH, FALL PRECAUTIONS IN PLACE, GUARDS AT BEDSIDE, WILL CONTINUE TO MONITOR.
--- NOTE | 2020-03-27 08:50 | NUR ---
PATIENT AMBULATED TO BATHROOM INDEPENDENTLY.
[2020-03-27 09:08] VITALS: BP 99/66
[2020-03-27] MEDS: LORATADINE 10 MG TAB PO SCH (10:46)
[2020-03-27] MEDS: PANTOPRAZOLE 40 MG TAB PO SCH ×2 (10:46→22:00)
[2020-03-27] MEDS: MONTELUKAST SODIUM 10 MG TAB PO SCH (10:47)
[2020-03-27] MEDS: ACCU-CHEK COMFORT CURVE STRIP VI SCH ×2 (10:48→23:31)
[2020-03-27] MEDS: INSULIN LANTUS (GLARGINE) 1 /0.01ml (100units/ml) SC SCH (10:48)
[2020-03-27] MEDS: ADVAIR IN SCH ×2 (10:49→22:00)
[2020-03-27] MEDS: DIGOXIN 0.125 MG TAB PO SCH (10:49)
[2020-03-27] MEDS: MORPHINE SULF INJ 2 MG/ML SYRINGE 1ML IV PRN ×2 (10:49→13:03)
--- NOTE | 2020-03-27 11:32 | NUR ---
RIGHT EJ CENTRAL LINE DRESSING CHANGED.
[2020-03-27 11:42] VITALS: BP 121/73
[2020-03-27] MEDS: ACETAMINOPHEN 325 MG TAB PO PRN ×2 (12:00→13:03)
--- NOTE | 2020-03-27 12:02 | NUR ---
PAIN: PAGE MADE TO DR. CASTELLON REGARDING PATIENTS PAIN LEVEL. PATIENT REPORTS 9/10 PRESSURE IN THE ABDOMEN, NOTED TO BE FIRM. PATIENT EDUCATED ON PAIN MED SCHEDULE, NOT DUE FOR NEXT MORPHINE DOSE UNTIL 12:49. PATIENT REQUEST, "ANYTHING FOR PAIN," TYLENOL GIVEN DESPITE PAIN SCALE, PER PATIENT REQUEST.
--- NOTE | 2020-03-27 13:08 | NUR ---
PATIENT REFUSED PT FOR TODAY. COMPLAINING OF STOMACH PAIN. MICHAEL PA WAS PRESENT WHEN PATIENT REFUSED. WILL TRY PT AGAIN TOMORROW. Addendum: 03/27/20 at 1309 by MIRNA ALATORRE PTT Amended: Links added.
--- NOTE | 2020-03-27 16:13 | NUR ---
NGT PLACED: NGT MEASURED AT 60CM. RIGHT NARE. CONNECTED TO LIS. 150ML YELLOW LIQUID NOTED THICK FLUID IN THE TUBE ON SUCTION. WILL FOLLOW PLACEMENT CHECK WITH STAT XRAY.
[2020-03-27] MEDS: SOD CHL 0.45% WITH 20MEQ KCL 1,000 ML IV SCH ×2 (16:16→23:30)
[2020-03-27 16:30] VITALS: BP 100/73
--- NOTE | 2020-03-27 17:46 | NUR ---
Respiratory note: PT DECANNULATED BY DR. GRIDER WITHOUT INCIDENCE. SPO2 94% ON RA, HR 102, RR 20. STOMA SITE COVERED WITH GAUZE AND TAPED IN PLACE. PT DENIES ANY SOB OR NEEDS AT THIS TIME.
--- NOTE | 2020-03-27 18:00 | NUR ---
200 ML YELLOW THICK FLUID NOTED IN NGT CANISTER .
--- NOTE | 2020-03-27 18:16 | NUR ---
MD ZARATE ROUNDING: TRACH DECANNULATED, AIRWAY COVERED IN GAUZE AND TAPED IN PLACE. PATIENT TOLERATED WELL. PER MD ZARATE WOULD LIKE CENTRAL LINE REMOVED, PATIENT UPSET ABOUT THIS, AND EXPRESSD CONCERNS FOR BEING POKED TO GET PERIPHERAL ACCESS, AND REFUSES TO HAVE EJ REMOVED AT THIS TIME, ASKING "WHY" WHEN UPDATING BENEFITS OF REMOVING CENTRAL LINE. WILL CONTINUE TO MONITOR.
--- NOTE | 2020-03-27 19:17 | NUR ---
CARE ENDORSED TO NOC RN.
[2020-03-27 22:00] VITALS: BP 105/69
[2020-03-27] MEDS: SENNA 8.6 MG TAB PO SCH (22:00)
--- NOTE | 2020-03-28 01:30 | NUR ---
Hypoglycemia Pt is alert and oriented Blood glucose POC 56 repeat test FS 60 no S/S noted D50 given, repeat FS 102 will continue monitor.
[2020-03-28 05:00] VITALS: BP 99/67
[2020-03-28 05:17] LABS: Albumin 2.1 g/dL (3.4-5.0); Calcium 8.3 mg/dL (8.5-10.1); Potassium 4.1 mmol/L (3.5-5.1)
[2020-03-28 05:22] LABS: BUN/Creatinine Ratio 19.2; Bilirubin, Total 0.4 mg/dL (0.2-1.0); Total Protein 6.9 g/dL (6.4-8.2)
[2020-03-28] MEDS: DOCUSATE SOD 100 MG CAP PO SCH ×3 (06:00→21:40)
[2020-03-28] MEDS: LACTULOSE 20Gm/30ML SOLN PO SCH ×5 (06:00→23:51)
[2020-03-28] MEDS: Glucerna Carbsteady SHAKE Vanilla 8oz PO SCH ×4 (06:00→21:41)
[2020-03-28] MEDS: METOCLOPRAMIDE HCL 5MG/ml INJ 2ml VIAL IV SCH ×3 (06:02→21:40)
[2020-03-28] MEDS: SOD CHL 0.45% WITH 20MEQ KCL 1,000 ML IV SCH ×3 (06:03→21:41)
--- NOTE | 2020-03-28 08:15 | NUR ---
OPENING SHIFT NOTE: PATIENT AWAKE, A/OX4 RESPIRATIONS EVEN AND UNLABORED. PATIENT DENIES ANY PAIN AT THIS TIME. UPDATED ON PLAN OF CARE. CALL LIGHT WITHIN REACH, FALL PRECAUTIONS IN PLACE, GUARDS AT BEDSIDE, WILL CONTINUE TO MONITOR.
[2020-03-28 08:45] VITALS: BP 109/69
[2020-03-28] MEDS: INSULIN LANTUS (GLARGINE) 1 /0.01ml (100units/ml) SC SCH (10:00)
[2020-03-28] MEDS: ADVAIR IN SCH (10:00)
[2020-03-28] MEDS: PANTOPRAZOLE 40 MG TAB PO SCH ×2 (10:26→21:41)
[2020-03-28] MEDS: LORATADINE 10 MG TAB PO SCH (10:26)
[2020-03-28] MEDS: DIGOXIN 0.125 MG TAB PO SCH (10:26)
[2020-03-28] MEDS: MONTELUKAST SODIUM 10 MG TAB PO SCH (10:26)
--- NOTE | 2020-03-28 12:26 | NUR ---
Nutrition Follow-up Notes Wt.: 76.1 kg Pt is NPO now with NG tube. pt with guards by bedside. pt with no distress noted per nursing Est. Needs BW 81 [id number] kcals (20-25 kcal/kgBW). 62-78g protein (0.8-1g/kg BW 78kg) . Will continue to monitor pertinent labs and reassess nutrient need prn. Labs: CA 8.3 L, ALB 2.1 L. Skin: Irwin scale 20 low risk, pt with pressure ulcers per engineering operations leader. refer to notes for details GI: Pt had 1 BM 03/24 per engineering operations leader. PES: Altered nutrition related lab values r/t current medical condition aeb hyponatremia, elevated RFTs, hyperglycemia, hypocalcemia, elevated bilirubin severe hypoalbuminemia Will continue to monitor PO status and intake, skin status, pertinent labs and weight trend. F/u in 3-5 days. Rec.: 1.) resume PN support to meet > 755 of needs if pt continues to be NPO. 2) resume diet as medically feasible 2) Continue current plan of care.
[2020-03-28 12:48] VITALS: BP 103/69
[2020-03-28] MEDS: ACCU-CHEK COMFORT CURVE STRIP VI SCH ×2 (13:19→21:41)
--- NOTE | 2020-03-28 13:31 | NUR ---
MD RAVINDER THOMAS.
--- NOTE | 2020-03-28 13:32 | NUR ---
HYPOGLYCEMIA: MD CASTELLON MADE AWARE OF LATEST BLOOD SUGARS. LANTUS HELD AT THIS TIME.
--- NOTE | 2020-03-28 14:34 | NUR ---
NGT REMOVED: CATHETER INTACT. PATIENT GIVEN CLEAR LIQUID DIET.
[2020-03-28 16:18] VITALS: BP 105/69
--- NOTE | 2020-03-28 17:46 | NUR ---
PATIENT IN SHOWER.
--- NOTE | 2020-03-28 18:07 | NUR ---
PATIENT OUT OF THE SHOWER, TRACH AND IV INTACT AND DRY.
--- NOTE | 2020-03-28 19:08 | NUR ---
CARE ENDORSED TO NOC RN.
[2020-03-28 21:40] VITALS: BP 121/73
[2020-03-28] MEDS: SENNA 8.6 MG TAB PO SCH (21:41)
[2020-03-28] MEDS: TEMAZEPAM 15 MG CAP PO PRN (23:06)
[2020-03-29 05:21] VITALS: BP 104/70
[2020-03-29] MEDS: LACTULOSE 20Gm/30ML SOLN PO SCH ×4 (05:38→23:34)
[2020-03-29] MEDS: METOCLOPRAMIDE HCL 5MG/ml INJ 2ml VIAL IV SCH ×3 (05:39→21:00)
[2020-03-29] MEDS: DOCUSATE SOD 100 MG CAP PO SCH ×3 (05:39→21:00)
[2020-03-29] MEDS: SOD CHL 0.45% WITH 20MEQ KCL 1,000 ML IV SCH ×3 (05:40→23:34)
[2020-03-29] MEDS: Glucerna Carbsteady SHAKE Vanilla 8oz PO SCH ×4 (05:46→21:00)
[2020-03-29 09:00] VITALS: BP 105/70
[2020-03-29] MEDS: ADVAIR IN SCH ×2 (10:00→21:00)
[2020-03-29] MEDS: PANTOPRAZOLE 40 MG TAB PO SCH ×2 (10:04→21:00)
[2020-03-29] MEDS: LORATADINE 10 MG TAB PO SCH (10:05)
[2020-03-29] MEDS: ACCU-CHEK COMFORT CURVE STRIP VI SCH ×2 (10:05→20:57)
[2020-03-29] MEDS: MONTELUKAST SODIUM 10 MG TAB PO SCH (10:05)
[2020-03-29] MEDS: INSULIN LANTUS (GLARGINE) 1 /0.01ml (100units/ml) SC SCH (10:06)
[2020-03-29] MEDS: DIGOXIN 0.125 MG TAB PO SCH (10:07)
--- NOTE | 2020-03-29 12:30 | NUR ---
WOUND CARE NOTE: Wound care in to see patient for skin integrity monitoring. Patient continue resting on air bed in Rm. 214A. He's ambulatory and self turning and repositioning. His Irwin score is 18. Patient is in no stated pain at this time. Patient's coccyx continue to display intact pink collagen scar, he continue receiving BID/PRN cleaning and application of Barrier cream to sacral/buttocks as preventative. New photograph intact scar to coccyx are taken for reference. Patient tolerated well. NO other wound noted. Guards at bedside. RECOMMENDATION:Continuation of all wound care orders prescribed by MD, continue with skin/wound plan of care, continue monitoring by wound care while patient is hospitalized.
[2020-03-29 13:00] VITALS: BP 106/77
--- NOTE | 2020-03-29 15:24 | NUR ---
Nutrition Follow-up Notes Wt.: 76.8 kg Pt was awake with guards at bedside when rounded this morning. Pt is now with a Clear Liquid diet, appetite is good aeb 75% PO intake over 2 meals. Pt with no distress noted per nursing. Will continue to monitor PO status, skin status, pertinent labs and weight trends. Will f/u in 2-3 days. Est. Needs BW 81 [id number] kcals (20-25 kcal/kgBW). 62-78g protein (0.8-1g/kg BW 78kg) . Will continue to monitor pertinent labs and reassess nutrient need prn. Labs: CA 8.3 L, ALB 2.1 L, POC Gluc 168, H Skin: Irwin scale 18 mod risk, pt with pressure ulcers per photographer. refer to notes for details GI: Pt had 1 BM 03/28 per photographer. PES: Altered nutrition related lab values r/t current medical condition aeb hyponatremia, elevated RFTs, hyperglycemia, hypocalcemia, elevated bilirubin severe hypoalbuminemia Will continue to monitor PO status and intake, skin status, pertinent labs and weight trend. F/u in 3-5 days. Rec.: 1.) resume PN support to meet > 755 of needs if pt continues to be NPO. 2) resume diet as medically feasible 2) Continue current plan of care.
[2020-03-29 16:54] VITALS: BP 113/73
[2020-03-29] MEDS: MORPHINE SULF INJ 2 MG/ML SYRINGE 1ML IV PRN ×2 (20:53→23:34)
[2020-03-29] MEDS: SENNA 8.6 MG TAB PO SCH (21:00)
[2020-03-29 22:00] VITALS: BP 111/77
[2020-03-30] MEDS: TEMAZEPAM 15 MG CAP PO PRN ×2 (00:34→21:39)
[2020-03-30] MEDS: MORPHINE SULF INJ 2 MG/ML SYRINGE 1ML IV PRN (03:30)
[2020-03-30 05:00] VITALS: BP 105/75
[2020-03-30] MEDS: METOCLOPRAMIDE HCL 5MG/ml INJ 2ml VIAL IV SCH ×3 (05:32→21:38)
[2020-03-30] MEDS: Glucerna Carbsteady SHAKE Vanilla 8oz PO SCH ×4 (05:33→21:37)
[2020-03-30] MEDS: LACTULOSE 20Gm/30ML SOLN PO SCH ×4 (05:33→21:38)
[2020-03-30] MEDS: DOCUSATE SOD 100 MG CAP PO SCH ×3 (05:33→21:36)
[2020-03-30] MEDS: SOD CHL 0.45% WITH 20MEQ KCL 1,000 ML IV SCH ×2 (08:43→17:02)
[2020-03-30 09:00] VITALS: BP 99/67
[2020-03-30] MEDS: ADVAIR IN SCH ×2 (10:00→21:36)
[2020-03-30] MEDS: LORATADINE 10 MG TAB PO SCH (10:33)
[2020-03-30] MEDS: DIGOXIN 0.125 MG TAB PO SCH (10:34)
[2020-03-30] MEDS: MONTELUKAST SODIUM 10 MG TAB PO SCH (10:34)
[2020-03-30] MEDS: ACCU-CHEK COMFORT CURVE STRIP VI SCH ×2 (10:34→21:37)
[2020-03-30] MEDS: PANTOPRAZOLE 40 MG TAB PO SCH ×2 (10:34→21:37)
[2020-03-30] MEDS: INSULIN LANTUS (GLARGINE) 1 /0.01ml (100units/ml) SC SCH (10:37)
[2020-03-30 13:00] VITALS: BP 112/74
[2020-03-30 17:00] VITALS: BP 101/71
--- NOTE | 2020-03-30 19:20 | NUR ---
Opening Shift Note Assumed care of patient, awake and alert. No S/S of distress/SOB or pain. Bed in lowest locked position, side rails up x2, call light within reach, guards at bedside. Instructed on POC and to call for assist PRN, will continue to monitor for changes Q1hr and PRN.
[2020-03-30] MEDS: SENNA 8.6 MG TAB PO SCH (21:36)
[2020-03-30 22:00] VITALS: BP 97/65
[2020-03-31] MEDS: SOD CHL 0.45% WITH 20MEQ KCL 1,000 ML IV SCH ×3 (01:27→17:05)
[2020-03-31] MEDS: LACTULOSE 20Gm/30ML SOLN PO SCH ×4 (01:51→22:22)
[2020-03-31] MEDS: DOCUSATE SOD 100 MG CAP PO SCH ×3 (01:51→22:21)
[2020-03-31 05:00] VITALS: BP 101/69
[2020-03-31] MEDS: Glucerna Carbsteady SHAKE Vanilla 8oz PO SCH ×4 (06:07→22:21)
[2020-03-31] MEDS: METOCLOPRAMIDE HCL 5MG/ml INJ 2ml VIAL IV SCH ×3 (06:07→22:21)
--- NOTE | 2020-03-31 06:58 | NUR ---
Closing Note Patient lying in bed, awake and alert. No S/S of distress/SOB or pain. Bed in lowest locked position, side rails up x2, call light within reach, guards at bedside. Patient refused all laxatives and stool softeners during shift, reports he has had diarrhea. Will endorse care to dayshift RN.
--- NOTE | 2020-03-31 07:35 | NUR ---
Opening shift note Assumed care of patient from NOC MICHAEL hightower. Patient is AOX4 no s/s of distress noted. Bed is in lowest locked position, side rails up x2 and, guards at bedside, call light is within reach. Updated patient on plan of care and patient verbalized understanding. Will continue to monitor q1hr and PRN.
[2020-03-31 08:31] VITALS: BP 100/65
[2020-03-31] MEDS: ADVAIR IN SCH ×2 (10:00→22:00)
--- NOTE | 2020-03-31 11:15 | NUR ---
Nutrition Follow-up Notes Wt.: 75.9 kg Pt was in restroom at time of rounds with a guard outside door. Pt diet advanced to regular 03/29. Pt po intake is fair aeb pt with 58% po intake x 3 since diet advanced to regular per RN note. Pt also with Glucerna 1 carton QID. Est. Needs BW 81 [id number] kcals (20-25 kcal/kgBW). 62-78g protein (0.8-1g/kg BW 78kg) . Will continue to monitor pertinent labs and reassess nutrient need prn. Labs:Creat 0.52L, Ca 8.3L, Alb 2.1L Skin: Irwin scale 18 mod risk, pt with pressure ulcers per rn documentation. refer to WC notes for details GI: Pt had 1 BM 03/31 per rn documentation. PES: Altered nutrition related lab values r/t current medical condition aeb hyponatremia, elevated RFTs, hyperglycemia, hypocalcemia, elevated bilirubin severe hypoalbuminemia Will continue to monitor PO status and intake, skin status, pertinent labs and weight trend. F/u in 3-5 days. 1.) pt po intake >75% 2) Continue current plan of care.
[2020-03-31] MEDS: LORATADINE 10 MG TAB PO SCH (11:53)
[2020-03-31] MEDS: MONTELUKAST SODIUM 10 MG TAB PO SCH (11:53)
[2020-03-31] MEDS: PANTOPRAZOLE 40 MG TAB PO SCH ×2 (11:53→22:21)
[2020-03-31] MEDS: DIGOXIN 0.125 MG TAB PO SCH (11:56)
[2020-03-31] MEDS: ACCU-CHEK COMFORT CURVE STRIP VI SCH ×2 (11:56→22:21)
[2020-03-31] MEDS: INSULIN LANTUS (GLARGINE) 1 /0.01ml (100units/ml) SC SCH (12:01)
[2020-03-31 13:07] VITALS: BP 111/69
[2020-03-31 17:00] VITALS: BP 115/75
--- NOTE | 2020-03-31 19:15 | NUR ---
End of shift note Endorsed care of patient to NOC RN Lily. No s/s of distress noted.
[2020-03-31 20:00] VITALS: BP 118/67
[2020-03-31] MEDS: SENNA 8.6 MG TAB PO SCH (22:21)
[2020-03-31] MEDS: TEMAZEPAM 15 MG CAP PO PRN (22:22)
[2020-04-01] MEDS: SOD CHL 0.45% WITH 20MEQ KCL 1,000 ML IV SCH ×3 (02:33→17:39)
[2020-04-01 05:00] VITALS: BP 111/70
[2020-04-01] MEDS: LACTULOSE 20Gm/30ML SOLN PO SCH ×4 (06:00→17:45)
[2020-04-01] MEDS: METOCLOPRAMIDE HCL 5MG/ml INJ 2ml VIAL IV SCH ×3 (06:12→22:42)
[2020-04-01] MEDS: DOCUSATE SOD 100 MG CAP PO SCH ×3 (06:13→22:42)
[2020-04-01] MEDS: Glucerna Carbsteady SHAKE Vanilla 8oz PO SCH ×4 (06:13→22:42)
--- NOTE | 2020-04-01 07:20 | NUR ---
Opening shift note assumed care of patient from NOC MICHAEL Bautista. Patient is AOx4, no s/s of distress noted. Bed is in the lowest locked position, call light is within reach, guards at bedside and side rails are up x2. Updated patient on plan of care and patient verbalized understanding. Will continue to monitor q1hr and PRN.
[2020-04-01] MEDS: MONTELUKAST SODIUM 10 MG TAB PO SCH (08:52)
[2020-04-01] MEDS: PANTOPRAZOLE 40 MG TAB PO SCH ×2 (08:52→22:43)
[2020-04-01] MEDS: LORATADINE 10 MG TAB PO SCH (08:53)
[2020-04-01] MEDS: ADVAIR IN SCH ×2 (08:53→22:00)
[2020-04-01] MEDS: ACCU-CHEK COMFORT CURVE STRIP VI SCH ×2 (08:53→22:44)
[2020-04-01] MEDS: DIGOXIN 0.125 MG TAB PO SCH (08:57)
[2020-04-01 09:00] VITALS: BP 107/70
[2020-04-01] MEDS: INSULIN LANTUS (GLARGINE) 1 /0.01ml (100units/ml) SC SCH (09:08)
--- NOTE | 2020-04-01 09:30 | NUR ---
Right IJ Line Dressing Change PICC line dressing change done with a sterile technique. Site was cleansed with chloraprep and bio-patch placed. Occlusive dressing applied. Patient tolerated well, will continue to monitor q1hr and PRN.
--- NOTE | 2020-04-01 09:58 | NUR ---
Linen change Changed bed linen and provided patient with clean gown. Encouraged patient to call for assistance as needed, will continue to monitor q1hr and PRN.
[2020-04-01 13:00] VITALS: BP 103/73
--- NOTE | 2020-04-01 16:00 | NUR ---
Right IJ Line Dressing Change Right IJ central line dressing change done with a sterile technique. Site was cleansed with chloraprep and bio-patch placed. Patient tolerated well, will continue to monitor q1hr and PRN.
[2020-04-01] MEDS ORDERED: HYDROcodone-ACET 10/325MG TAB PO PRN (16:15)
[2020-04-01 17:00] VITALS: BP 101/69
--- NOTE | 2020-04-01 19:26 | NUR ---
End of shift note Endorsed care to NGHIA Baez, jamil s/s of distress noted. Addendum: 04/01/20 at 1927 by ROGER WASHINGTON RN Ministerio Back
--- NOTE | 2020-04-01 19:28 | NUR ---
Opening shift note Assumed care of patient. Patient is awake, alert, and oriented x 4, no s/s of respiratory distress noted. Respirations are regular and non-labored. Bed is in the lowest locked position, side rails up X 2, call light is within reach. Guards at bedside. Updated patient on plan of care and patient verbalized understanding. Patient instructed to call for assistance as needed. Will continue to monitor q1hr and PRN.
[2020-04-01 22:00] VITALS: BP 110/73
[2020-04-01] MEDS: SENNA 8.6 MG TAB PO SCH (22:43)
[2020-04-01] MEDS: TEMAZEPAM 15 MG CAP PO PRN (22:53)
[2020-04-02] MEDS: SOD CHL 0.45% WITH 20MEQ KCL 1,000 ML IV SCH ×3 (05:50→21:41)
[2020-04-02 05:55] VITALS: BP 102/65
[2020-04-02] MEDS: METOCLOPRAMIDE HCL 5MG/ml INJ 2ml VIAL IV SCH ×3 (05:57→21:40)
[2020-04-02] MEDS: DOCUSATE SOD 100 MG CAP PO SCH ×3 (05:58→21:41)
[2020-04-02] MEDS: LACTULOSE 20Gm/30ML SOLN PO SCH ×4 (05:58→18:00)
[2020-04-02] MEDS: Glucerna Carbsteady SHAKE Vanilla 8oz PO SCH ×4 (05:58→21:47)
[2020-04-02 09:00] VITALS: BP 94/66
[2020-04-02] MEDS: ADVAIR IN SCH ×2 (10:00→21:48)
[2020-04-02] MEDS: INSULIN LANTUS (GLARGINE) 1 /0.01ml (100units/ml) SC SCH (10:00)
[2020-04-02] MEDS: ACCU-CHEK COMFORT CURVE STRIP VI SCH ×2 (10:00→21:48)
--- NOTE | 2020-04-02 10:00 | NUR ---
PT PATIENT UP WITH PT. AMBULATED WITH STANDBY ASSIST AND CANE 150 FEET AND TOLERATED WELL.
[2020-04-02] MEDS: LORATADINE 10 MG TAB PO SCH (12:09)
[2020-04-02] MEDS: MONTELUKAST SODIUM 10 MG TAB PO SCH (12:09)
[2020-04-02] MEDS: PANTOPRAZOLE 40 MG TAB PO SCH ×2 (12:10→21:40)
[2020-04-02] MEDS: DIGOXIN 0.125 MG TAB PO SCH (12:10)
[2020-04-02 13:00] VITALS: BP 104/67
[2020-04-02 17:00] VITALS: BP 107/72
[2020-04-02] MEDS: TEMAZEPAM 15 MG CAP PO PRN (21:40)
[2020-04-02] MEDS: SENNA 8.6 MG TAB PO SCH (21:47)
[2020-04-02 22:00] VITALS: BP 102/68
[2020-04-03] MEDS: SOD CHL 0.45% WITH 20MEQ KCL 1,000 ML IV SCH ×3 (04:05→22:39)
[2020-04-03 05:00] VITALS: BP 107/69
[2020-04-03] MEDS: DOCUSATE SOD 100 MG CAP PO SCH ×3 (06:00→22:40)
[2020-04-03] MEDS: LACTULOSE 20Gm/30ML SOLN PO SCH ×4 (06:00→18:00)
[2020-04-03] MEDS: METOCLOPRAMIDE HCL 5MG/ml INJ 2ml VIAL IV SCH ×3 (06:08→22:40)
[2020-04-03] MEDS: Glucerna Carbsteady SHAKE Vanilla 8oz PO SCH ×4 (06:08→22:40)
[2020-04-03 09:00] VITALS: BP 108/67
[2020-04-03] MEDS: MONTELUKAST SODIUM 10 MG TAB PO SCH (10:00)
[2020-04-03] MEDS: ADVAIR IN SCH ×2 (10:00→22:00)
[2020-04-03] MEDS: INSULIN LANTUS (GLARGINE) 1 /0.01ml (100units/ml) SC SCH (10:00)
[2020-04-03] MEDS: ACCU-CHEK COMFORT CURVE STRIP VI SCH ×2 (10:00→22:00)
--- NOTE | 2020-04-03 10:30 | NUR ---
PATIENT REPORTED FEELINGS OF ANXIETY NEW ORDERS TO BE CARRIED OUT
[2020-04-03] MEDS: LORATADINE 10 MG TAB PO SCH (10:43)
[2020-04-03] MEDS: DIGOXIN 0.125 MG TAB PO SCH (10:44)
[2020-04-03] MEDS: PANTOPRAZOLE 40 MG TAB PO SCH ×2 (10:44→22:41)
--- NOTE | 2020-04-03 11:30 | NUR ---
ANXIETY MEDICATION EFFECTIVE. WILL CONTINUE TO MONITOR.
[2020-04-03 13:00] VITALS: BP 107/78
--- NOTE | 2020-04-03 16:16 | NUR ---
Nutrition Follow-up Notes Wt.: 77.7 kg Pt was with PT when rounded this morning.. Pt is with a Regular diet, pt PO intake is good aeb 100% PO intake over 6 meals per RN note. Will continue to monitor PO status, skin status, pertinent labs and weight trends. Will f/u in 5-7 days. Est. Needs BW 81 [id number] kcals (20-25 kcal/kgBW). 62-78g protein (0.8-1g/kg BW 78kg) . Will continue to monitor pertinent labs and reassess nutrient need prn. Labs:Gluc 168 H, A1c 10.8 H, Alb 2.1L Skin: Irwin scale 19 low risk, refer to WC notes for details GI: Pt had 1 BM 04/02 per chief mate. PES: Altered nutrition related lab values r/t current medical condition aeb hyponatremia, elevated RFTs, hyperglycemia, hypocalcemia, elevated bilirubin severe hypoalbuminemia Comments: 1.) pt po intake >75% 2) Continue current plan of care.
[2020-04-03] MEDS: LORazepam 0.5 MG TAB PO PRN (16:37)
[2020-04-03 17:00] VITALS: BP 107/73
--- NOTE | 2020-04-03 19:15 | NUR ---
ENDORSED CARE TO RN ABRAM. PATIENT RESTING COMFORTABLE , NO DISTRESS, DENIED PAIN, RESPIRATIONS RELAXED AND EVEN.
[2020-04-03 21:40] VITALS: BP 106/73
--- NOTE | 2020-04-03 21:45 | NUR ---
Patient took all his meds, asked if he can do his accu check later or in the morning because he wants to go to sleep already.
[2020-04-03] MEDS: SENNA 8.6 MG TAB PO SCH (22:41)
[2020-04-03] MEDS: TEMAZEPAM 15 MG CAP PO PRN (22:41)
[2020-04-04 05:12] VITALS: BP 131/69
[2020-04-04] MEDS: LACTULOSE 20Gm/30ML SOLN PO SCH ×4 (05:27→18:00)
[2020-04-04] MEDS: METOCLOPRAMIDE HCL 5MG/ml INJ 2ml VIAL IV SCH ×2 (05:27→14:00)
[2020-04-04] MEDS: SOD CHL 0.45% WITH 20MEQ KCL 1,000 ML IV SCH ×2 (05:27→13:25)
[2020-04-04] MEDS: Glucerna Carbsteady SHAKE Vanilla 8oz PO SCH ×4 (05:28→18:00)
[2020-04-04] MEDS: DOCUSATE SOD 100 MG CAP PO SCH ×2 (05:28→14:00)
--- NOTE | 2020-04-04 07:30 | NUR ---
RECEIVED REPORT FROM NIGHT NURSE. PATIENT RESTING IN BED, NO DISTRESS NOTED. GUARDS X2 AT BEDSIDE. SHACKLES TO BILATERAL ANKLES. HANDCUFF TO LEFT WRIST. WILL CONTINUE TO MONITOR.
[2020-04-04 09:00] VITALS: BP 124/73
[2020-04-04] MEDS: ADVAIR IN SCH (10:00)
[2020-04-04] MEDS: MONTELUKAST SODIUM 10 MG TAB PO SCH (10:25)
[2020-04-04] MEDS: LORATADINE 10 MG TAB PO SCH (10:25)
[2020-04-04] MEDS: DIGOXIN 0.125 MG TAB PO SCH (10:25)
[2020-04-04] MEDS: PANTOPRAZOLE 40 MG TAB PO SCH (10:25)
[2020-04-04] MEDS: LORazepam 0.5 MG TAB PO PRN (10:31)
[2020-04-04] MEDS: ACCU-CHEK COMFORT CURVE STRIP VI SCH (10:34)
[2020-04-04] MEDS: INSULIN LANTUS (GLARGINE) 1 /0.01ml (100units/ml) SC SCH (10:36)
--- NOTE | 2020-04-04 11:00 | NUR ---
PATIENT WALKING WITH PT IN THE HALLWAY, USING CANE.
[2020-04-04 13:00] VITALS: BP 103/72
[2020-04-04] MEDS ORDERED: DIGO0.1238 PO (14:11)
[2020-04-04] MEDS ORDERED: LACT10SO3 PO (14:11)
[2020-04-04] MEDS ORDERED: DOCU100C8 PO (14:11)
[2020-04-04] MEDS ORDERED: INSLANTI SC (14:11)
[2020-04-04] MEDS ORDERED: PANT40T PO (14:11)
--- NOTE | 2020-04-04 17:30 | NUR ---
WOUND CARE PHOTOS TAKEN.
--- NOTE | 2020-04-04 17:35 | NUR ---
TRIPLE LUMEN CATHETER TO THE RIGHT IJ REMOVED. MANUAL PRESSURE HELD FOR 5 MINUTES, NO NOTED BLEEDING AT INSERTION SITE, PRESSURE TAPE APPLIED.
--- NOTE | 2020-04-04 17:37 | NUR ---
MRSA SWAB COLLECTED AND SENT TO LAB VIA BULLET.
--- NOTE | 2020-04-04 17:38 | NUR ---
PAPERWORK SIGNED BY PATIENT. DISCHARGE PACKET GIVEN TO GUARD AT BEDSIDE. GUARD HAS CALLED FOR TRANSPORT.
== END 2020-04-04 20:35 | DRG 3 ==
LOC: EEVIPCON 14:21 → EDBD 14:21 → ER 14:21 → TELE 14:22 → TELE-E-ADS 20:08 → EAST 21:05 → ICU WEST 11-18 14:32 → TELE-CENTR 12-22 11:53 → ICU CENTRL 01-01 13:41 → DOU IN ICU 01-01 14:24 → ICU WEST 01-01 19:55 → DOU IN ICU 01-18 07:32 → TELE-EAST 01-21 15:34 → TELE-CENTR 03-08 15:29 → CENTRAL 03-15 03:28
PROVIDERS: ADMIT Internal Medicine; ATTEND Internal Medicine
PROC: 0W9900Z Drainage of Right Pleural Cavity with Drainage Device, Open Approach (ICD-10-PCS; principal; 2019-11-18)
PROC: 5A1955Z Respiratory Ventilation, Greater than 96 Consecutive Hours (ICD-10-PCS; 2019-11-18)
PROC: 0BH17EZ Insertion of Endotracheal Airway into Trachea, Via Natural or Artificial Opening (ICD-10-PCS; 2019-11-18)
PROC: 02HV33Z Insertion of Infusion Device into Superior Vena Cava, Percutaneous Approach (ICD-10-PCS; 2019-11-18)
PROC: 03H63DZ Insertion of Intraluminal Device into Left Axillary Artery, Percutaneous Approach (ICD-10-PCS; 2019-11-19)
PROC: 0B968ZZ Drainage of Right Lower Lobe Bronchus, Via Natural or Artificial Opening Endoscopic (ICD-10-PCS; 2019-11-24)
PROC: 0B928ZZ Drainage of Carina, Via Natural or Artificial Opening Endoscopic (ICD-10-PCS; 2019-12-03)
PROC: 0B9J8ZZ Drainage of Left Lower Lung Lobe, Via Natural or Artificial Opening Endoscopic (ICD-10-PCS; 2019-12-03)
PROC: 0BNF0ZZ Release Right Lower Lung Lobe, Open Approach (ICD-10-PCS; 2019-12-05)
PROC: 0B928ZZ Drainage of Carina, Via Natural or Artificial Opening Endoscopic (ICD-10-PCS; 2019-12-10)
PROC: 0B938ZZ Drainage of Right Main Bronchus, Via Natural or Artificial Opening Endoscopic (ICD-10-PCS; 2019-12-10)
PROC: 0B978ZZ Drainage of Left Main Bronchus, Via Natural or Artificial Opening Endoscopic (ICD-10-PCS; 2019-12-10)
PROC: 0B968ZZ Drainage of Right Lower Lobe Bronchus, Via Natural or Artificial Opening Endoscopic (ICD-10-PCS; 2019-12-10)
PROC: 0B110F4 Bypass Trachea to Cutaneous with Tracheostomy Device, Open Approach (ICD-10-PCS; 2019-12-11)
PROC: 30233N1 Transfusion of Nonautologous Red Blood Cells into Peripheral Vein, Percutaneous Approach (ICD-10-PCS; 2019-12-14)
PROC: 0B978ZZ Drainage of Left Main Bronchus, Via Natural or Artificial Opening Endoscopic (ICD-10-PCS; 2019-12-14)
PROC: B548ZZA Ultrasonography of Superior Vena Cava, Guidance (ICD-10-PCS; 2020-01-01)
PROC: 02HV33Z Insertion of Infusion Device into Superior Vena Cava, Percutaneous Approach (ICD-10-PCS; 2020-01-01)
PROC: 0B21XFZ Change Tracheostomy Device in Trachea, External Approach (ICD-10-PCS; 2020-01-01)
PROC: 0B21XFZ Change Tracheostomy Device in Trachea, External Approach (ICD-10-PCS; 2020-02-12)
PROC: 0DJD8ZZ Inspection of Lower Intestinal Tract, Via Natural or Artificial Opening Endoscopic (ICD-10-PCS; 2020-03-12)
DX: A40.9 Streptococcal sepsis, unspecified (principal); J86.9 Pyothorax without fistula; J18.9 Pneumonia, unspecified organism; R65.21 Severe sepsis with septic shock; J96.21 Acute and chronic respiratory failure with hypoxia; I30.9 Acute pericarditis, unspecified; E87.1 Hypo-osmolality and hyponatremia; J98.11 Atelectasis; N17.9 Acute kidney failure, unspecified; Z99.11 Dependence on respirator [ventilator] status; E44.0 Moderate protein-calorie malnutrition; K56.609 Unspecified intestinal obstruction, unspecified as to partial versus complete obstruction; J44.0 Chronic obstructive pulmonary disease with (acute) lower respiratory infection; E11.9 Type 2 diabetes mellitus without complications; E87.5 Hyperkalemia; I48.91 Unspecified atrial fibrillation; D64.9 Anemia, unspecified; K52.9 Noninfective gastroenteritis and colitis, unspecified; K59.00 Constipation, unspecified; K64.8 Other hemorrhoids; E78.5 Hyperlipidemia, unspecified; I11.0 Hypertensive heart disease with heart failure; I50.9 Heart failure, unspecified; Z79.2 Long term (current) use of antibiotics; Z72.0 Tobacco use; Z74.01 Bed confinement status; Z82.49 Family history of ischemic heart disease and other diseases of the circulatory system; Z83.3 Family history of diabetes mellitus; Z90.49 Acquired absence of other specified parts of digestive tract; Z79.4 Long term (current) use of insulin; Z71.6 Tobacco abuse counseling; Z68.29 Body mass index [BMI] 29.0-29.9, adult; Z03.818 Encounter for observation for suspected exposure to other biological agents ruled out
CPT/HCPCS: 10022; 31624; 31645; 31720; 36415; 36569; 36600; 45378; 70450; 71045; 71046; 71250; 71260; 71275; 74018; 74022; 74176; 74177; 74245; 76604; 76700; 76705; 77012; 80048; 80053; 80162; 80202; 81001; 82010; 82040; 82565; 82805; 82962; 83036; 83605; 83690; 83735; 83880; 83986; 84100; 84478; 84484; 85007; 85014; 85018; 85025; 85027; 85610; 85730; 86703; 86708; 86803; 86850; 86900; 86901; 86920; 87040; 87070; 87075; 87076; 87077; 87081; 87086; 87088; 87186; 87205; 89051; 92507; 92610; 93005; 94002; 94003; 94640; 94760; 94762; 96379; 97110; 97116; 97163; 97530; A4223; A4605; A4618; C1729; C9113; G0378; J0132; J0171; J0330; J0610; J0696; J1450; J1815; J1885; J1956; J2001; J2185; J2248; J2250; J2405; J2543; J2704; J3480; J3490; J7042; J7060; J7131; P9047

== ENCOUNTER 2020-04-23 17:32 | Inpatient (IN) | payer OTHER ==
[~2020-04-23] VITALS: Ht 175.3 cm; Wt 67.7 kg
[~2020-04-23 17:32] MED LIST: DIGO0.1238 PO; DOCU100C8 PO; INSLANTI SC; LACT10SO3 PO; LISI-646 PO; METF-372 PO; OMEP20TA PO; PANT40T PO
[2020-04-23] MEDS ORDERED: PANTOPRAZOLE 40 MG/10 ML VIAL INJ IV STA (17:39)
[2020-04-23] MEDS ORDERED: SODIUM CHLORIDE 0.9% 500 ML IVB ONE (17:39)
[2020-04-23] MEDS ORDERED: MORPHINE SULFATE 4 MG/ML SYR/VIAL IV ONE (17:45)
[2020-04-23] MEDS ORDERED: ONDANSETRON HCL 4 MG/2 ML VIAL IV ONE (17:45)
[2020-04-23 18:42] LABS: Basophils # (auto) 0 10 ^3/uL (0-0.2); Basophils % (auto) 0.5 % (0.0-2.0); Eosinophils # (auto) 0 10 ^3/uL (0-0.8); Eosinophils % (auto) 0.7 % (0.0-7.0); Lymphocytes # (auto) 0.9 10 ^3/uL (0.4-5.4); Monocytes # (auto) 0.4 10 ^3/uL (0-1.3)
[2020-04-23 18:44] LABS: Hemoglobin 12.4 g/dL (13.5-17.5); Lymphocytes % (auto) 12.2 % (10.0-50.0); Mean Corpuscular Hgb Conc. 31.9 g/dL (32.0-36.0); Mean Corpuscular Volume 81.3 fL (80.0-100.0); Monocytes % (auto) 5.2 % (0.0-12.0); Neutrophils # (auto) 5.9 10 ^3/uL (1.6-8.6); Neutrophils % (auto) 81.4 % (37.0-80.0); Nucleated Red Blood Cells % 0.1 %; Platelet Count (auto) 583 10^3/uL (140-450); Red Blood Cells 4.79 10^6/uL (4.5-5.90); Red Cell Distribution Width 15.2 % (11.8-14.3); White Blood Cell 7.2 10^3/uL (4.4-10.8)
[2020-04-23 19:00] LABS: Albumin 2.2 g/dL (3.4-5.0); Calcium 8.3 mg/dL (8.5-10.1); Potassium 4.4 mmol/L (3.5-5.1)
[2020-04-23 19:04] LABS: BUN/Creatinine Ratio 22.5; Bilirubin, Total 0.4 mg/dL (0.2-1.0)
[2020-04-23] MEDS ORDERED: NITROGLYCERIN 0.4 MG SL TAB SL PRN (20:00)
[2020-04-23] MEDS ORDERED: MORPHINE SULF INJ 2 MG/ML SYRINGE 1ML IV PRN (20:00)
[2020-04-23] MEDS: D5W/SOD CHL 0.45% 1,000 ML IV SCH ×2 (20:17→22:09)
--- NOTE | 2020-04-23 21:30 | NUR ---
Telemetry admit from ER JOEL RIVERA admitted to Telemetry unit. Patient oriented to primary RN, unit, room, bed, and unit policies regarding patient care and visiting hours. Patient now on continuous telemetry monitoring, tele box #70 and telemetry reading on arrival to unit is sinus tachycardia. Patient weighed by bedscale and encouraged to call if they need something. All questions and concerns addressed, patient verbalized understanding. Bed in lowest locked position, call light within reach, side rails up x2, guards at bedside. Will continue to monitor Q1hr and PRN.
[2020-04-23] MEDS: metroNIDAZOLE 500MG/100ML 100 ML IV SCH (22:09)
[2020-04-24 05:00] VITALS: BP 90/62
[2020-04-24] MEDS: metroNIDAZOLE 500MG/100ML 100 ML IV SCH ×3 (05:58→21:56)
[2020-04-24 06:13] LABS: Basophils # (auto) 0 10 ^3/uL (0-0.2); Basophils % (auto) 0.6 % (0.0-2.0); Eosinophils # (auto) 0.1 10 ^3/uL (0-0.8); Eosinophils % (auto) 1.6 % (0.0-7.0); Hematocrit 32.8 % (41.0-53.0); Hemoglobin 10.8 g/dL (13.5-17.5); Lymphocytes # (auto) 1.2 10 ^3/uL (0.4-5.4); Lymphocytes % (auto) 15.1 % (10.0-50.0); Mean Corpuscular Hemoglobin 26.4 pg (28.0-32.0); Mean Corpuscular Hgb Conc. 32.8 g/dL (32.0-36.0); Mean Corpuscular Volume 80.4 fL (80.0-100.0); Monocytes # (auto) 0.5 10 ^3/uL (0-1.3); Monocytes % (auto) 5.9 % (0.0-12.0); Neutrophils # (auto) 5.9 10 ^3/uL (1.6-8.6); Neutrophils % (auto) 76.8 % (37.0-80.0); Nucleated Red Blood Cells % 0.1 %; Platelet Count (auto) 510 10^3/uL (140-450); Red Blood Cells 4.08 10^6/uL (4.5-5.90); Red Cell Distribution Width 15.8 % (11.8-14.3); White Blood Cell 7.7 10^3/uL (4.4-10.8)
[2020-04-24 06:33] LABS: Potassium 4.3 mmol/L (3.5-5.1)
[2020-04-24 06:41] LABS: BUN/Creatinine Ratio 17.8; Calcium 7.6 mg/dL (8.5-10.1)
--- NOTE | 2020-04-24 07:30 | NUR ---
Opening Shift Note Assumed care of patient, awake and alert. No S/S of distress/SOB or pain. Instructed on POC and to call for assist PRN, will continue to monitor for changes Q1hr and PRN. Bed is locked and in lowest position. Call light within reach.
[2020-04-24 08:00] VITALS: BP 112/67
--- NOTE | 2020-04-24 08:38 | NUR ---
PAGED DR. Margo HUMPHREYS REGARDING PATIENT BEING DIABETIC WITH NO ACCU CHECK OR INSULIN. PATIENT TAKES LANTUS AT FACILITY. PATIENT BLOOD PRESSURE HAS BEEN TRENDING IN LOW 90S AND REQUIRES A DIFFERENT TYPE OF PAIN MEDS OTHER THAN MORPHINE. PATIENT WELL DOES NOT HAVE GI CONSULTATION. WILL AWAIT DR. HUMPHREYS CALL BACK FOR POC.
[2020-04-24] MEDS ORDERED: DEXTROSE (50%) 50ML SYRG IV PRN (08:45)
[2020-04-24] MEDS: PANTOPRAZOLE 40 MG/10 ML VIAL INJ IV SCH ×2 (08:57→21:56)
[2020-04-24 09:00] VITALS: BP 112/67
[2020-04-24] MEDS: ACCU-CHEK COMFORT CURVE STRIP VI SCH ×3 (11:30→21:57)
[2020-04-24] MEDS: InsuLIN REG 1unit/0.01ml Soln (100units/ml) SC SCH ×3 (12:10→21:57)
[2020-04-24 13:00] VITALS: BP 103/68
[2020-04-24] MEDS: ONDANSETRON HCL 4 MG/2 ML VIAL IV PRN (14:36)
[2020-04-24] MEDS: ACETAMINOPHEN/CODEINE#3 (300/30mg) TAB PO PRN ×3 (14:37→23:53)
[2020-04-24 17:00] VITALS: BP 98/68
--- NOTE | 2020-04-24 19:30 | NUR ---
Opening Shift Note Assumed care of patient, awake and alert. No S/S of distress/SOB or pain. Instructed on POC and to call for assist PRN. Bed in lowest locked position, call light within reach, side rails up x2. Will continue to monitor for changes Q1hr and PRN.
--- NOTE | 2020-04-24 20:25 | NUR ---
at bedside Dr. Stapleton at bedside discussing POC.
[2020-04-24] MEDS: INSULIN LANTUS (GLARGINE) 1 /0.01ml (100units/ml) SC SCH (21:57)
[2020-04-24] MEDS: DICYCLOMINE HCL 10 MG CAP PO SCH (21:57)
[2020-04-24] MEDS: SUCRALFATE 1 GM/10 ML ORAL SUSP PO SCH (21:57)
[2020-04-24 22:00] VITALS: BP 95/65
[2020-04-25 05:00] VITALS: BP 105/71
[2020-04-25] MEDS: metroNIDAZOLE 500MG/100ML 100 ML IV SCH ×3 (06:28→22:18)
[2020-04-25] MEDS: SUCRALFATE 1 GM/10 ML ORAL SUSP PO SCH ×4 (06:28→22:18)
[2020-04-25] MEDS: DICYCLOMINE HCL 10 MG CAP PO SCH ×3 (06:28→22:18)
[2020-04-25] MEDS: InsuLIN REG 1unit/0.01ml Soln (100units/ml) SC SCH ×4 (06:29→22:00)
[2020-04-25] MEDS: INSULIN LANTUS (GLARGINE) 1 /0.01ml (100units/ml) SC SCH ×2 (06:29→22:00)
[2020-04-25] MEDS: ACCU-CHEK COMFORT CURVE STRIP VI SCH ×4 (06:29→22:13)
[2020-04-25 08:00] VITALS: BP 92/64
--- NOTE | 2020-04-25 08:00 | NUR ---
OPENING SHIFT NOTE ASSUMED CARE OF PATIENT AWAKE AND ALERT. NO S/S OF DISTRESS NOTED OR COMPLAINTS OF PAIN. PATIENT UPDATED ON POC FOR THE DAY AND ALL QUESTIONS ANSWERED. BED IS IN LOWEST, LOCKED POSITION WITH SIDE RAILS UP X2, AND CALL LIGHT WITHIN REACH. GUARDS ARE AT BEDSIDE. WILL CONTINUE TO MONITOR Q1H AND PRN.
[2020-04-25] MEDS: PANTOPRAZOLE 40 MG/10 ML VIAL INJ IV SCH ×2 (09:22→22:18)
[2020-04-25 12:00] VITALS: BP 95/63
[2020-04-25] MEDS: D5W/SOD CHL 0.45% 1,000 ML IV SCH ×2 (13:13→21:07)
[2020-04-25 17:00] VITALS: BP 91/59
--- NOTE | 2020-04-25 19:06 | NUR ---
Opening Shift Note Assumed care of patient after receiving report. Patient is awake and alert with no S/S of distress/SOB or pain. Call light within reach, bed in lowest locked position x2 side rails, guards at bedside. Instructed on POC and to call for assist PRN, will continue to monitor for changes Q1hr and PRN.
[2020-04-25] MEDS: ONDANSETRON HCL 4 MG/2 ML VIAL IV PRN (20:49)
[2020-04-25] MEDS: MORPHINE SULF INJ 2 MG/ML SYRINGE 1ML IV PRN (21:07)
[2020-04-25 22:00] VITALS: BP 97/67
[2020-04-26] MEDS: MORPHINE SULF INJ 2 MG/ML SYRINGE 1ML IV PRN ×3 (01:09→21:47)
[2020-04-26 05:00] VITALS: BP 98/66
[2020-04-26] MEDS: metroNIDAZOLE 500MG/100ML 100 ML IV SCH ×3 (06:16→21:26)
[2020-04-26] MEDS: SUCRALFATE 1 GM/10 ML ORAL SUSP PO SCH ×4 (06:16→21:26)
[2020-04-26] MEDS: InsuLIN REG 1unit/0.01ml Soln (100units/ml) SC SCH ×4 (06:16→21:34)
[2020-04-26] MEDS: INSULIN LANTUS (GLARGINE) 1 /0.01ml (100units/ml) SC SCH ×2 (06:16→21:34)
[2020-04-26] MEDS: DICYCLOMINE HCL 10 MG CAP PO SCH ×3 (06:16→21:26)
[2020-04-26] MEDS: ACCU-CHEK COMFORT CURVE STRIP VI SCH ×4 (06:17→21:27)
[2020-04-26] MEDS: PANTOPRAZOLE 40 MG/10 ML VIAL INJ IV SCH ×2 (08:23→21:26)
[2020-04-26] MEDS: ONDANSETRON HCL 4 MG/2 ML VIAL IV PRN ×3 (08:23→17:56)
[2020-04-26 09:00] VITALS: BP 97/65
[2020-04-26 13:00] VITALS: BP 103/70
--- NOTE | 2020-04-26 16:02 | NUR ---
Nutrition Assessment Notes Please refer to link for full assessment notes. Est Energy needs: 0052-3577 kcals (25-30 kcal/kgBW) Est Protein needs: 52-65 gms/day (0.8-1.0 gm/kgBW) Will continue to monitor and reassess prn. Addendum: 04/26/20 at [address] Amended: Links added.
[2020-04-26 17:00] VITALS: BP 98/64
--- NOTE | 2020-04-26 20:27 | NUR ---
Dr. Stapleton at Bedside
[2020-04-26] MEDS ORDERED: LACTULOSE 20Gm/30ML SOLN PO PRN (20:30)
[2020-04-26 22:00] VITALS: BP 97/64
[2020-04-26] MEDS ORDERED: DOCUSATE SOD 100 MG CAP PO SCH (22:00)
[2020-04-27 01:43] VITALS: BP 97/64
== END 2020-04-27 05:15 | DRG 392 ==
LOC: ER 17:32 → EDBD 17:32 → EEVIPCON 17:32 → TELE 17:33 → TELE-WESTW 21:20
PROVIDERS: ADMIT Specialist; ATTEND Specialist
DX: K52.9 Noninfective gastroenteritis and colitis, unspecified (principal); E87.1 Hypo-osmolality and hyponatremia; K59.00 Constipation, unspecified; I10 Essential (primary) hypertension; E11.9 Type 2 diabetes mellitus without complications; Z20.828 Contact with and (suspected) exposure to other viral communicable diseases; E78.5 Hyperlipidemia, unspecified; Z79.4 Long term (current) use of insulin; Z79.899 Other long term (current) drug therapy; Z83.3 Family history of diabetes mellitus
CPT/HCPCS: 36415; 74176; 80048; 80053; 82150; 82962; 83690; 85025; 87040; 87081; 93005; C9113; G0378; J1815; J2405; J3490

== ENCOUNTER 2020-05-14 12:01 | Inpatient (IN) | payer OTHER ==
[~2020-05-14] VITALS: Ht 170.2 cm; Wt 93.0 kg
[2020-05-14] MEDS ORDERED: SODIUM CHLORIDE 0.9% 1,000 ML IV ONE ×2 (12:12)
[2020-05-14] MEDS ORDERED: ONDANSETRON HCL 4 MG/2 ML VIAL IV ONE (13:45)
[2020-05-14 13:46] LABS: Basophils # (auto) 0 10 ^3/uL (0-0.2); Eosinophils # (auto) 0 10 ^3/uL (0-0.8); Lymphocytes # (auto) 0.4 10 ^3/uL (0.4-5.4); Monocytes # (auto) 0.2 10 ^3/uL (0-1.3)
[2020-05-14 13:48] LABS: Hemoglobin 11.7 g/dL (13.5-17.5); Lymphocytes % (auto) 4.4 % (10.0-50.0); Mean Corpuscular Hemoglobin 26.3 pg (28.0-32.0); Mean Corpuscular Hgb Conc. 33.3 g/dL (32.0-36.0); Mean Corpuscular Volume 78.9 fL (80.0-100.0); Monocytes % (auto) 1.9 % (0.0-12.0); Neutrophils # (auto) 9.1 10 ^3/uL (1.6-8.6); Neutrophils % (auto) 93.7 % (37.0-80.0); Platelet Count (auto) 583 10^3/uL (140-450); Red Blood Cells 4.43 10^6/uL (4.5-5.90); Red Cell Distribution Width 16.6 % (11.8-14.3); White Blood Cell 9.7 10^3/uL (4.4-10.8)
[2020-05-14 14:04] LABS: INR 1.23 (0.9-1.15); Partial Thromboplastin Time 37.9 sec (23.0-31.2)
[2020-05-14 14:07] LABS: Alanine Aminotransferase 45 U/L (16-61); Albumin 1.7 g/dL (3.4-5.0); Anion Gap 9 (5-15); Blood Urea Nitrogen 37 mg/dL (7-18); Calcium 7.6 mg/dL (8.5-10.1); Carbon Dioxide 25 mmol/L (21-32); Chloride 95 mmol/L (98-107); Glucose 108 mg/dL (74-106); Sodium 129 mmol/L (136-145)
[2020-05-14 14:12] LABS: Alkaline Phosphatase 500 U/L (45-117); Aspartate Aminotransferase 61 U/L (15-37); BUN/Creatinine Ratio 23.7; GFR African American 59 mL/min; GFR Non-African American 49 mL/min; Total Protein 6.2 g/dL (6.4-8.2)
[2020-05-14] MEDS ORDERED: DEXTROSE 10% 1,000 ML IV ONE (15:15)
[2020-05-14] MEDS ORDERED: ENOXAPARIN SOD 40 MG/0.4 ML SYRINGE SC ONE (16:15)
[2020-05-14] MEDS ORDERED: VANCOMYCIN PER PHARMACY 0 MG IV SCH (16:15)
[2020-05-14] MEDS ORDERED: MORPHINE SULF INJ 2 MG/ML SYRINGE 1ML IV PRN (16:15)
[2020-05-14] MEDS ORDERED: NITROGLYCERIN 0.4 MG SL TAB SL PRN (16:15)
[2020-05-14] MEDS ORDERED: ONDANSETRON HCL 4 MG/2 ML VIAL IV PRN (16:15)
[2020-05-14] MEDS ORDERED: DEXTROSE (50%) 50ML SYRG IV PRN (16:30)
[2020-05-14] MEDS ORDERED: OMNIPAQUE ORAL SOLN 500ml 12mg/ml PO ONE (16:45)
[2020-05-14] MEDS ORDERED: IOHEXOL 300 MG/ML 100ML BOTTLE IJ ONE ×2 (16:45→18:52)
[2020-05-14] MEDS ORDERED: VANCOMYCIN 1GM/250ML 250 ML IV ONE ×2 (17:30→20:00)
[2020-05-14 17:50] LABS: Urine Bacteria NONE SEEN /hpf (None Seen); Urine Blood Negative /uL (Negative); Urine Mucus FEW (None Seen); Urine Specific Gravity 1.021 (1.001-1.035); Urine WBC 1 /hpf (0 - 3)
--- NOTE | 2020-05-14 19:30 | NUR ---
Received report from day rn.
[2020-05-14] MEDS: ACCU-CHEK COMFORT CURVE STRIP VI SCH (19:52)
[2020-05-14] MEDS: InsuLIN REG 1unit/0.01ml Soln (100units/ml) SC SCH (19:52)
--- NOTE | 2020-05-14 19:58 | NUR ---
paged dr rosales to notify of patient requesting pain medication and sleeping aid. awaiting call back.
--- NOTE | 2020-05-14 20:00 | NUR ---
Upon physical assessment, patient does have non blanchable redness with some peeling on sacrum/coccyx/buttocks area. Will take picture shortly. Addendum: 05/15/20 at 0159 by Estrada Gonzalez RN dressing on trach site. no other skin issues noted. performed a head to toe full physical assessment.
--- NOTE | 2020-05-14 20:04 | NUR ---
SPOKE TO MD CASTELLON AND NOTIFIED PATIENT IS REQUESTING MORPHINE FOR SEVERE PAIN AND A SLEEP AID. MD CASTELLON PROVIDED NEW ORDER OF: NORCO 10/325 MG Q4 PRN AND AMBIEN 10 MG HSPRN. READ BACK AND CONFIRMED WITH MD CASTELLON WILL CARRY OUT.
[2020-05-14] MEDS ORDERED: ZOLPIDEM TARTRATE 5 MG TAB PO PRN (20:15)
[2020-05-14] MEDS ORDERED: HYDROcodone-ACET 10/325MG TAB PO PRN (20:15)
--- NOTE | 2020-05-14 21:26 | NUR ---
Leonora Rizzo from [facility] radiology called me and advised of results of CT abdomen and pelvis and MD needs to be aware. Sacha doshi MD.
--- NOTE | 2020-05-14 21:30 | NUR ---
paged MD Miller to notify of CT of the abdomen/pelvis results. Awaiting call back.
--- NOTE | 2020-05-14 21:41 | NUR ---
Verbally fully read results of CT abd/pelvis to MD rosales. MD Rosales provided new orders of: NPO, D5 1/2 with 20 meq k at rate of 150 ml/hr, NG tube to LIS, Levaquin 500 mg IV daily, Flagyl 500 mg iv q8 hours, morphine q4 prn 4 mg iv, am labs of: CBC CMP and blood cultures, surgical consult with javy Caballero MD, and stop norco order. Verbally read back all orders and verbally confirmed with MD Rosales. Will carry out.
[2020-05-14] MEDS ORDERED: D5W/SOD CHL 0.45%/KCL 20MEQ 1,000 ML IV SCH (21:45)
[2020-05-14] MEDS ORDERED: MORPHINE SULFATE 4 MG/ML SYR/VIAL IV PRN (21:45)
[2020-05-14 22:00] VITALS: BP 85/52
[2020-05-14] MEDS ORDERED: metroNIDAZOLE 500MG/100ML 100 ML IV SCH (22:00)
--- NOTE | 2020-05-14 22:00 | NUR ---
[facility]. MD Caballero advised me of patient needs to go to emergency surgery now. Charge nurse made aware and notified fuel house attendant.
--- NOTE | 2020-05-14 22:45 | NUR ---
Inserted NG tube in right nare 12 indonesian and put it at continuous suction at 80 as verbally ordered by MD Caballero. 500 output from ng tube. placement was checked by ausculation. Addendum: 05/15/20 at 0156 by Estrada Gonzalez RN attempted 2x for NG tube placement. Charge nurse at bedside.
[2020-05-14] MEDS ORDERED: LIDOCAINE 1% HCL (LOCAL ANESTH.) INJ 20ML MDV ONE (22:48)
[2020-05-14] MEDS ORDERED: BUPIVACAINE 0.25% INJ 50ML VIAL ONE (22:48)
[2020-05-14] MEDS ORDERED: NOREPINEPHRINE 8 MG/250ML KIT 250 ML IV ONE (23:30)
--- NOTE | 2020-05-14 23:30 | NUR ---
Sent patient to Pre OP in OR.
[2020-05-14] MEDS ORDERED: ONDANSETRON HCL 4 MG/2 ML VIAL ONE (23:41)
[2020-05-14] MEDS ORDERED: MIDAZOLAM HCL 1MG/1ML-2 ML VIAL ONE (23:41)
[2020-05-14] MEDS ORDERED: SODIUM CHLORIDE LOCK 20 ML ONE (23:41)
[2020-05-14] MEDS ORDERED: fentaNYL CITRATE 100 MCG/2 ML VL ONE (23:41)
[2020-05-14] MEDS ORDERED: fentaNYL CITRATE 5 ML ONE (23:41)
[2020-05-14] MEDS ORDERED: HYDROmorphone HCL 2 MG/ML VL ONE (23:41)
[2020-05-14] MEDS ORDERED: ETOMIDATE (2MG/ML) 20ML VIAL IV ONE (23:41)
[2020-05-14] MEDS ORDERED: ROCURONIUM 10MG/ML 10ML VIAL IV ONE (23:41)
[2020-05-15] VITALS (93 sets, daily range): BP systolic 65–127; BP diastolic 45–76
--- NOTE | 2020-05-15 01:26 | NUR ---
Provided full report to SEARCH AND RESCUE OFFICER Kinga. Notified Padmini of patient will be coming from OR, CT abd/pelvis results and patient went to emergency surgery, labs, ng tube in right nare 12 danish, and trach dressing change. Endorsed to Padmini RODRIGUEZ of taking picture of sacrum/coccyx/buttocks area for wound care documentation, unable due to patient going to emergency surgery, and chest xray for ng tube placement. Patient has non blanchable redness on in coccyx/sacrum/buttocks area with some peeling.
--- NOTE | 2020-05-15 01:26 | NUR ---
Report received from Estrada.
--- NOTE | 2020-05-15 01:42 | NUR ---
Verbally fully read results of CT abd/pelvis to MD rosales. MD Rosales provided new orders of: NPO, D5 1/2 with 20 meq k at rate of 150 ml/hr, NG tube to LIS, Levaquin 500 mg IV daily, Flagyl 500 mg iv q8 hours, morphine q4 prn 4 mg iv, am labs of: CBC CMP and blood cultures, surgical consult with javy Caballero MD, and stop norco order. Verbally read back all orders and verbally confirmed with MD Rosales. Will carry out. Addendum: 05/15/20 at 0148 by Estrada Gnozalez RN wrong time entered. actual time of event note at 2141 pm.
[2020-05-15] MEDS ORDERED: ROCURONIUM 10MG/ML 10ML VIAL IV ONE (01:47)
[2020-05-15] MEDS ORDERED: MIDAZOLAM HCL 1MG/1ML-2 ML VIAL ONE (01:47)
[2020-05-15] MEDS ORDERED: HYDROmorphone HCL 2 MG/ML VL ONE (01:47)
--- NOTE | 2020-05-15 02:06 | NUR ---
Report received from MIDDLE SCHOOL DIRECTOR.
--- NOTE | 2020-05-15 02:20 | NUR ---
Pt being admitted to ICU from OR JOEL RIVERA admitted to ICU via ICU bed on groundwater monitoring technician, and portable 02. Patient transfered to bed, connected to ICU monitoring and vent, and weighed by tatiana campa at bedside. Pt is intubated, no s/s of distress noted at this time. NGT connected to LCS no output noted. Midline incision clean dry and intact with right and left Baldo drains in place. Pt's blood pressure 78/46 notified Malgorzata Pelaez anesthesiologist at the bedside. No orders received. Heidi Muñiz.
[2020-05-15] MEDS ORDERED: ONDANSETRON HCL 4 MG/2 ML VIAL IV PRN (02:30)
[2020-05-15] MEDS: SODIUM CHLORIDE 0.9% 1,000 ML IV SCH ×4 (02:30→20:46)
--- NOTE | 2020-05-15 02:45 | NUR ---
Dr Caballero paged again
[2020-05-15] MEDS ORDERED: PHENYLEPHRINE INJ 80 MG in SODIUM CHL 0.9% 250 ML IV SCH ×3 (03:00→21:08)
--- NOTE | 2020-05-15 03:00 | NUR ---
Dr Caballero paged. New orders received.
[2020-05-15] MEDS ORDERED: PHENYLEPHRINE HCL 10 MG/ML VL ONE (03:05)
[2020-05-15] MEDS ORDERED: PHENYLEPHRINE IV 250 ML IV SCH (03:15)
[2020-05-15] MEDS ORDERED: SODIUM CHLORIDE 0.9% 1,000 ML IV ONE ×4 (03:15→17:30)
--- NOTE | 2020-05-15 03:56 | NUR ---
MD ZARATE PAGED WITH ABG RESULTS, LEFT VOICE MESSAGE. AWAITING CALL BACK
[2020-05-15] MEDS: InsuLIN REG 1unit/0.01ml Soln (100units/ml) SC SCH ×6 (04:00→23:58)
[2020-05-15] MEDS: ACCU-CHEK COMFORT CURVE STRIP VI SCH ×6 (04:26→23:52)
[2020-05-15 04:30] LABS: Basophils # (auto) 0 10 ^3/uL (0-0.2); Eosinophils # (auto) 0 10 ^3/uL (0-0.8); Monocytes # (auto) 0.1 10 ^3/uL (0-1.3)
[2020-05-15] MEDS ORDERED: D5W/SOD CHLO 0.9% 1,000 ML IV ONE (04:30)
[2020-05-15 04:33] LABS: Basophils % (auto) 0.1 % (0.0-2.0); Hematocrit 34.9 % (41.0-53.0); Hemoglobin 11.2 g/dL (13.5-17.5); Lymphocytes # (auto) 0.3 10 ^3/uL (0.4-5.4); Lymphocytes % (auto) 5.1 % (10.0-50.0); Mean Corpuscular Hemoglobin 25.8 pg (28.0-32.0); Mean Corpuscular Volume 80.5 fL (80.0-100.0); Monocytes % (auto) 1.6 % (0.0-12.0); Neutrophils # (auto) 4.6 10 ^3/uL (1.6-8.6); Neutrophils % (auto) 93.2 % (37.0-80.0); Nucleated Red Blood Cells % 0.1 %; Platelet Count (auto) 591 10^3/uL (140-450); Red Blood Cells 4.34 10^6/uL (4.5-5.90); Red Cell Distribution Width 16.8 % (11.8-14.3)
[2020-05-15 05:02] LABS: Albumin 1.1 g/dL (3.4-5.0); BUN/Creatinine Ratio 35.1; Calcium 6.2 mg/dL (8.5-10.1); Potassium 4.1 mmol/L (3.5-5.1)
[2020-05-15 05:04] LABS: Bilirubin, Total 0.8 mg/dL (0.2-1.0); Total Protein 4.7 g/dL (6.4-8.2)
[2020-05-15] MEDS: NOREPINEPHRINE 8 MG/250ML KIT 250 ML IV SCH ×3 (05:16→18:30)
[2020-05-15] MEDS: HEPARIN SODIUM (PORCINE) 5000 UNITS/ML 1ML VIAL SC SCH ×4 (06:00→22:20)
--- NOTE | 2020-05-15 06:00 | NUR ---
HEPARIN HELD DUE TO PATIENTS RECENT SURGICAL PROCEDURE. WILL CLARIFY WITH
--- NOTE | 2020-05-15 06:30 | NUR ---
COVID SWAB WALKED UP TO LAB
--- NOTE | 2020-05-15 06:35 | NUR ---
DR CASTELLON PAGED REGARDING MAXED ON VASOPRESSORS AND B/P STILL LOW.
--- NOTE | 2020-05-15 07:06 | NUR ---
PAGED DR CHAVO Rivera. NEW ORDERS RECEIVED.
--- NOTE | 2020-05-15 07:35 | NUR ---
HEPARIN ORDER HEPARIN ORDER CLARIFIED WITH . SAID IT'S OKAY TO GIVE. 0600 DOSE WAS NOT GIVEN BUT GIVEN NOW.
--- NOTE | 2020-05-15 07:45 | NUR ---
OPENING SHIFT NOTE Received report from NGHIA RNRadhika. Assumed care of patient. Received patient lying in bed, shackles in place to bilateral lower extremities, correctional officers at bedside and connected to bedside monitor. Patient is currently intubated. ET 8.0/24. Vent settings AC 20 TV 500 P5 fiO2 35%. Pupils 3mm and sluggish bilaterally, no cough/gag noted. Patient with NGT to right nare to low continuous suction with scant amount of brown drainage noted in tubing alone. Patient with MARILYN drains x2 to right and left abdomen. Right MARILYN with 50ml serous drainage noted, Left MARILYN empty. Midline abdominal incision C/D/I. Patient's current drips are Levophed at 30mcg/hr and Dale 300mcg/hr, with NS at 125ml/hr. Orders received by NGHIA RN to start Vasopressin. Patient also pending central line placement per order from Dr Caballero. Will continue to monitor.
[2020-05-15] MEDS ORDERED: fentaNYL Drip 2500mCg/250mlNS 250 ML IV ONE (07:47)
[2020-05-15] MEDS: fentaNYL Drip 2500mCg/250mlNS 250 ML IV SCH (08:09)
[2020-05-15] MEDS ORDERED: SODIUM BICARBONATE 8.4 % INJ 50ML VIAL IV ONE ×3 (08:45→09:45)
[2020-05-15] MEDS ORDERED: SODIUM BICARBONATE 8.4% INJ 50ML SYRINGE ONE (08:47)
[2020-05-15] MEDS: ALBUMIN 25% 100 ML IV SCH ×4 (08:55→23:42)
[2020-05-15] MEDS ORDERED: MIDAZOLAM DRIP 50 mg/50mL 50 ML IV ONE (09:12)
--- NOTE | 2020-05-15 09:25 | NUR ---
DR JUAN AT BEDSIDE, INCREASED RR ON VENT TO 26, ORDER FOR 1 AMP SODIUM BICARBONATE, AND ABG IN 3 HRS. AWARE OF CURRENT INFUSING IV DRIPS AND LATEST ABG RESULTS.
--- NOTE | 2020-05-15 09:30 | NUR ---
DR CASTELLON GAVE ORDER FOR PICC LINE DUE TO DR JUAN UNABLE TO PLACE TLC AND NO ER DR AVAILABLE TO PLACE TLC.
[2020-05-15] MEDS: VASOPRESSIN 50 UNITS in D5W 5% 247.5 ML IV SCH ×2 (09:47→18:30)
[2020-05-15] MEDS: MIDAZOLAM DRIP 50 mg/50mL 50 ML IV SCH ×2 (09:47→17:00)
--- NOTE | 2020-05-15 09:47 | NUR ---
SPOKE WITH FROM SKILLED NURSING UPDATED ON PLAN OF CARE/STATUS
[2020-05-15] MEDS: PHENYLEPHRINE INJ 40 MG in SODIUM CHL 0.9% 250 ML IV SCH ×5 (10:00→22:19)
[2020-05-15] MEDS ORDERED: levoFLOXacin 500MG 100 ML IV SCH (10:00)
--- NOTE | 2020-05-15 10:00 | NUR ---
WOUND CARE NOTE: IN TO SEE PATIENT AT THIS TIME PER WOUND CARE CONSULT REQUEST. PATIENT ADMITTED TO [facility] WITH DIAGNOSIS OF HYPOGLYCEMIA, HYPOTENSION, ABD PAIN. CURRENT ABBY SCORE 10. PATIENT IS INTUBATED, SEDATED, ON VASOPRESSORS TO MAINTAIN HEMODYNAMICS. PATIENT TRANSFERRED TO ICU AFTER SURGERY CONSISTING OF: EXPLORATORY LAP WITH LYSIS OF ADHESIONS, EXTRACTION OF MESH, DRAINAGE OF INTRAABDOMINAL ABSCESS, SMALL BOWEL RESECTION. PATIENT NOTED UPON ADMIT TO ICU TO HAVE SACRAL SKIN INTEGRITY ISSUE. WOUND PHOTO TAKEN AT THAT TIME BY BEDSIDE NURSE FOR REFERENCE. PATIENT IS NOTED TO HAVE DUSKY, CYANOTIC BILATERAL FOREFEET. TRANSMETATARSAL AREA OF LEFT FOOT AND # 1 TOE/HALLUX OF RIGHT FOOT ARE COLD, DUSKY BLUE/TIDWELL IN COLOR. LEFT OPEN TO AIR. PATIENT ALSO HAS A PINK, COLLAGEN SCAR NOTED TO THE SACRUM WITH A SMALL 1 X 1 CM OPEN PARTIAL THICKNESS WOUND NOTED. RECOMMEND: FREQUENT TURN SCHEDULE Q 2 HOURS, PRN CONDITION PERMITS, WITH PRESSURE REDISTRIBUTION USING PILLOWS/WEDGES, ICU LOW AIRLOSS BED, THEN AIR MATTRESS UPON TRANSFER TO ANY OTHER UNIT; DAILY/PRN DRESSING CHANGE WITH LILIAN WARE GENTLE SACRAL DRESSING TO SACRAL WOUND, DIETARY CONSULT, SKIN/WOUND CARE PLAN, CONTINUED MONITORING BY WOUND CARE TEAM. Addendum: 05/15/20 at 1358 by Denisha Thornton RN Amended: Links added.
[2020-05-15] MEDS: PANTOPRAZOLE 40 MG/10 ML VIAL INJ IV SCH ×2 (10:27→22:20)
[2020-05-15] MEDS: ERTAPENEM SOD INJ 1 GM in SODIUM CHL 0.9% 50 ML IV SCH (11:00)
[2020-05-15] MEDS ORDERED: ALBUMIN 25% 100 ML IV SCH (12:00)
--- NOTE | 2020-05-15 12:22 | NUR ---
Left message for Dr Caballero regarding starting Epi, MARILYN drain output and PICC line/central line update.
--- NOTE | 2020-05-15 12:22 | NUR ---
Notified Dr Ayala of ABG results. No new orders received.
[2020-05-15] MEDS: EPINEPHrine HCL 250 ML IV SCH ×2 (12:30→18:30)
--- NOTE | 2020-05-15 12:45 | NUR ---
T/C from Dr Caballero. Updated on patient status and need to start epi as fourth pressor. MD informed of MARILYN output. MD also made aware about needing central line/PICC line and consent issues. ok with central line to be placed by Dr Nova or Dr Ridley since ER and Dr Ayala cannot do it today. No new orders received.
--- NOTE | 2020-05-15 14:15 | NUR ---
RADIOLOGY xray at bedside post central line placement.
--- NOTE | 2020-05-15 15:00 | NUR ---
T/C from Dr Nova. Ok to use central line. CVP set up initiated.
--- NOTE | 2020-05-15 15:57 | NUR ---
T/C from Dr Miller. Updated MD on patient status. Orders received.
[2020-05-15] MEDS ORDERED: ACETAMINOPHEN 120 MG RECT SUPP PR PRN (16:00)
[2020-05-15] MEDS ORDERED: ACETAMINOPHEN 325 MG RECT SUPP PR PRN (16:15)
--- NOTE | 2020-05-15 17:29 | NUR ---
MD T/C to Dr Caballero. Updated MD on patient's current BP, CVP and results for blood cultures. Orders received for 1L NS bolus. No additional antibiotics needed. MD stated that nursing can update him as needed.
[2020-05-15 17:30] LABS: Red Blood Cells 3.84 10^6/uL (4.5-5.90); Red Cell Distribution Width 17.1 % (11.8-14.3)
[2020-05-15 17:32] LABS: Hematocrit 30.7 % (41.0-53.0); Hemoglobin 10.1 g/dL (13.5-17.5); Mean Corpuscular Hemoglobin 26.2 pg (28.0-32.0); Mean Corpuscular Hgb Conc. 32.8 g/dL (32.0-36.0); Platelet Count (auto) 333 10^3/uL (140-450); White Blood Cell 9.8 10^3/uL (4.4-10.8)
[2020-05-15 17:49] LABS: Basophils % (manual) 0 (0.0-2.0); Blast Cells 0; Eosinophils % (manual) 0 (0-7); Myelocytes % 0; Promyelocytes % 0; Reactive Lymphocytes 0
[2020-05-15 18:34] LABS: Band Neutrophils % (manual) 65; Lymphocytes % (manual) 4 (10.0-50.0); Metamyelocytes % 1; Monocytes % (manual) 4 (0-12)
--- NOTE | 2020-05-15 18:56 | NUR ---
END OF SHIFT NOTE Patient remains intubated and sedated. Patient currently on Versed 7mg/hr, Fentanyl 75mcg/hr, Levophed 30mcg/hr, Dale 300mcg/min, Vasopressin 0.07unit/min, and Epinephrine 10mcg/min. Patient now with a Right IJ TLC with CVP measuring ~8-10. Per Dr Caballero goal is to maintain CVP>10. Patient is receiving 2nd 1L NS bolus for this shift. Goldstein draining dark yellow UOP, 700ml noted this shift. Vent settings AC 26 TV 500 P5 fiO2 35% with ET 8.0/24. Correctional officers at the bedside. Report to be given to Zulma AGRAWAL RN.
--- NOTE | 2020-05-15 20:20 | NUR ---
CALLED DR TONY REGARDING PT MAXED OUT ON PRESSORS AND SBP IN THE 70-80'S. NEW ORDERS RECEIVED FOR LABS, AND A BLOOD GAS. STATED TO CALL HIM BACK WITH THE RESULTS. WILL CARRY OUT.
[2020-05-15 21:03] LABS: Basophils # (auto) 0 10 ^3/uL (0-0.2); Eosinophils # (auto) 0 10 ^3/uL (0-0.8); Hematocrit 27.5 % (41.0-53.0); Lymphocytes # (auto) 0.3 10 ^3/uL (0.4-5.4); Mean Corpuscular Hgb Conc. 32.8 g/dL (32.0-36.0); Monocytes # (auto) 0.1 10 ^3/uL (0-1.3); Red Blood Cells 3.41 10^6/uL (4.5-5.90)
[2020-05-15 21:04] LABS: Lymphocytes % (auto) 3.2 % (10.0-50.0); Mean Corpuscular Hemoglobin 26.4 pg (28.0-32.0); Mean Corpuscular Volume 80.7 fL (80.0-100.0); Monocytes % (auto) 0.9 % (0.0-12.0); Neutrophils # (auto) 8.8 10 ^3/uL (1.6-8.6); Neutrophils % (auto) 95.9 % (37.0-80.0); Platelet Count (auto) 285 10^3/uL (140-450); Red Cell Distribution Width 16.9 % (11.8-14.3); White Blood Cell 9.2 10^3/uL (4.4-10.8)
[2020-05-15 21:21] LABS: BUN/Creatinine Ratio 29.4; Calcium 6.2 mg/dL (8.5-10.1); Potassium 3.8 mmol/L (3.5-5.1)
[2020-05-15 21:22] LABS: INR 1.55 (0.9-1.15); Partial Thromboplastin Time 64.3 sec (23.0-31.2)
[2020-05-15 21:24] LABS: Bilirubin, Total 1.4 mg/dL (0.2-1.0); Total Protein 4.5 g/dL (6.4-8.2)
--- NOTE | 2020-05-15 21:45 | NUR ---
CALLED DR TONY WITH LAB/ABG RESULTS AND VS NO NEW ORDERS RECEIVED, WILL CONTINUE TO MONITOR.
--- NOTE | 2020-05-15 22:00 | NUR ---
Tried to contact Dr Miller to update on patient status. No answer on Dr's exchange. PBX states this is an outside office and is unaware if their phones are functioning properly. Will continue to monitor.
[2020-05-15] MEDS: NOREPINEPHRINE BITARTRATE 16 MG in SODIUM CHL 0.9% 250 ML IV SCH (23:30)
[2020-05-16] VITALS (102 sets, daily range): BP systolic 70–118; BP diastolic 48–73
[2020-05-16] MEDS: SODIUM CHLORIDE 0.9% 1,000 ML IV SCH ×2 (01:39→19:47)
[2020-05-16] MEDS: EPINEPHrine HCL 250 ML IV SCH ×3 (02:18→15:28)
[2020-05-16] MEDS: MIDAZOLAM DRIP 50 mg/50mL 50 ML IV SCH ×2 (03:26→12:30)
[2020-05-16] MEDS: ACCU-CHEK COMFORT CURVE STRIP VI SCH ×6 (03:33→23:39)
[2020-05-16] MEDS: InsuLIN REG 1unit/0.01ml Soln (100units/ml) SC SCH ×6 (04:00→23:39)
[2020-05-16] MEDS: PHENYLEPHRINE INJ 40 MG in SODIUM CHL 0.9% 250 ML IV SCH ×9 (04:18→22:30)
--- NOTE | 2020-05-16 04:31 | NUR ---
Patient bathe/linen change Patient given complete bath. Skin integrity assessed for any changes. Linens changed. Patient repositioned for comfort.
[2020-05-16] MEDS: ALBUMIN 25% 100 ML IV SCH ×4 (05:32→23:40)
[2020-05-16] MEDS: HEPARIN SODIUM (PORCINE) 5000 UNITS/ML 1ML VIAL SC SCH ×3 (05:33→21:44)
[2020-05-16 05:37] LABS: Mean Corpuscular Hgb Conc. 33.4 g/dL (32.0-36.0); White Blood Cell 10.2 10^3/uL (4.4-10.8)
[2020-05-16 05:39] LABS: Hematocrit 25.5 % (41.0-53.0); Hemoglobin 8.5 g/dL (13.5-17.5); Mean Corpuscular Hemoglobin 26.6 pg (28.0-32.0); Mean Corpuscular Volume 79.7 fL (80.0-100.0); Platelet Count (auto) 292 10^3/uL (140-450); Red Blood Cells 3.19 10^6/uL (4.5-5.90); Red Cell Distribution Width 17.2 % (11.8-14.3)
[2020-05-16 05:40] LABS: Basophils % (manual) 0 (0.0-2.0); Blast Cells 0; Eosinophils % (manual) 0 (0-7); Metamyelocytes % 0; Myelocytes % 0; Promyelocytes % 0; Reactive Lymphocytes 0
[2020-05-16 05:47] LABS: Potassium 3.7 mmol/L (3.5-5.1)
[2020-05-16] MEDS: fentaNYL Drip 2500mCg/250mlNS 250 ML IV SCH (05:53)
[2020-05-16 05:54] LABS: Albumin 2.4 g/dL (3.4-5.0); BUN/Creatinine Ratio 33.3; Bilirubin, Total 1.7 mg/dL (0.2-1.0); Calcium 6.4 mg/dL (8.5-10.1); Total Protein 4.9 g/dL (6.4-8.2)
[2020-05-16 06:03] LABS: Band Neutrophils % (manual) 19; Lymphocytes % (manual) 8 (10.0-50.0); Monocytes % (manual) 2 (0-12)
[2020-05-16] MEDS ORDERED: NOREPINEPHRINE BITARTRATE 2 ML IV ONE (06:16)
[2020-05-16] MEDS ORDERED: NOREPINEPHRINE 8 MG/250ML KIT 250 ML IV ONE (06:16)
--- NOTE | 2020-05-16 06:48 | NUR ---
DR TONY ON THE PHONE DISCUSSED PT STATUS AND POC. NEW ORDERS RECEIVED. WILL CARRY OUT.
[2020-05-16] MEDS ORDERED: SODIUM CHLORIDE 0.9% 1,000 ML IV SCH (07:00)
--- NOTE | 2020-05-16 07:45 | NUR ---
OPENING SHIFT NOTE Received report from NOC RN, Zulma. Assumed care of patient. Received patient lying in bed, shackles in place to bilateral lower extremities, correctional officers at bedside and connected to bedside monitor. Patient is currently intubated. ET 8.0/24. Vent settings AC 26 TV 500 P5 fiO2 30%. Pupils 2mm and sluggish bilaterally, no cough/gag noted. Patient with NGT to right nare to low continuous suction with scant amount of brown drainage noted in tubing alone. Patient with MARILYN drains x2 to right and left abdomen, scant serous drainage noted to both. Midline abdominal incision C/D/I. Patient's current drips are Versed 5mg/hr, Fentanyl 100mcg/hr, Levophed 30mcg/hr, Dale 300mcg/min, Vasopressin 0.07unit/min, and Epinephrine 10mcg/min infusing via RIJ TLC. Patient with three PIVs: LAC #20, RFA #20x2. NS @125ml/hr infusing in RFA. Patient's sacrum is red, non blanching and now open with some purplish coloring noted. Will contact [facility] to see patient on rounds. Bilateral feet and left fingers are cyanotic. Pulses are palpable bilaterally to both upper and lower extremities. Will continue to monitor.
[2020-05-16] MEDS: VASOPRESSIN 50 UNITS in D5W 5% 247.5 ML IV SCH (08:00)
[2020-05-16] MEDS: NOREPINEPHRINE BITARTRATE 16 MG in SODIUM CHL 0.9% 250 ML IV SCH ×2 (08:30→17:30)
--- NOTE | 2020-05-16 08:35 | NUR ---
MD Dr Miller to see patient. Updated on patient status. No new orders received.
[2020-05-16] MEDS ORDERED: FUROSEMIDE 20 MG/2 ML VIAL IV ONE (09:00)
[2020-05-16] MEDS ORDERED: POTASSIUM CHL 20MEQ/100ML 100 ML IV ONE (09:00)
[2020-05-16] MEDS ORDERED: TPN PER PHARMACY 0 ML IV SCH (09:00)
[2020-05-16 09:57] LABS: Magnesium 1.9 mg/dL (1.6-2.6); Phosphorus 2.3 mg/dL (2.5-4.90)
[2020-05-16 10:01] LABS: Pre Albumin 3.4 mg/dL (20.0-40.0)
[2020-05-16] MEDS: PANTOPRAZOLE 40 MG/10 ML VIAL INJ IV SCH ×2 (10:31→21:41)
[2020-05-16] MEDS: ERTAPENEM SOD INJ 1 GM in SODIUM CHL 0.9% 50 ML IV SCH (10:32)
[2020-05-16] MEDS ORDERED: CALCIUM GLUC 4.65meq/50ml D5AE 50 ML IV ONE (11:00)
--- NOTE | 2020-05-16 11:19 | NUR ---
Nutrition Consult Consider Glucerna 1.2 at 60 ml/hr per Md approval Consider MVI and Vitamin C 500 mg BID for wound healing Est energy needs 9580-0140 kcal (25-28 kcal/kg BW 70.6kg) est protein needs 56-71g (0.8-1g/kg BW 70.6kg) will reassess prn. Addendum: 05/16/20 at [address] Amended: Links added.
--- NOTE | 2020-05-16 11:27 | NUR ---
T/C from Dr Ayala. Orders given for 1/2NS + 3amps Bicarb and ABGs q3hrs x3 post infusion. No new vent settings.
[2020-05-16] MEDS ORDERED: SODIUM BICARBONATE 50ML VIAL 150 ML in SOD CHL 0.45% 1,000 ML IV ONE (11:30)
[2020-05-16] MEDS ORDERED: SODIUM PHOSP 20MEQ(15MMOL) IN NS 100 ML IV ONE (12:00)
[2020-05-16] MEDS ORDERED: SODIUM PHOSPHATES 30 MEQ in SODIUM CHL 0.9% 250 ML IV ONE (12:00)
[2020-05-16] MEDS ORDERED: ACETAMINOPHEN 325 MG RECT SUPP PR PRN (15:30)
--- NOTE | 2020-05-16 16:00 | NUR ---
TURNING Unable to reposition patient at this time due to low BP. Patient unable to tolerate. Patient is maxed out on four pressors. Wound consult pending due to new findings on sacrum/buttock.
--- NOTE | 2020-05-16 17:00 | NUR ---
MD Dr Caballero at bedside to see patient. Orders received for daily dressing changes to midline incision. MD also wants to be notified first prior to administration of lasix and want blood draws only in pediatric tubes.
--- NOTE | 2020-05-16 18:00 | NUR ---
WOUND CARE Wound care nurse at bedside. Attempt to visualize area of concern. Unable to reposition patient at this time due to low BP. Patient unable to tolerate. Patient is maxed out on four pressors.
--- NOTE | 2020-05-16 18:13 | NUR ---
WOUND CARE NOTE: IN TO SEE PATIENT FOR NEW SKIN CONCERN TO RIGHT BUTTOCK. PATIENT CONTINUES TO BE INTUBATE, SEDATED. HE IS ON MULTIPLE VASOPRESSORS, UNSTABLE FOR TRANSFER. UNABLE TO RECEIVE GOOD QUALITY TURNS D/T UNSTABLE HEMODYNAMICS. TRIED TO TURN PATIENT JUST FAR ENOUGH TO VISUALIZE AREA OF CONCERN TO THE RIGHT BUTTOCK, ONLY ABLE TO PARTIALLY OBSERVE. IT APPEARS THAT PATIENT IS DEVELOPING AN EARLY DTI TO THE AREA. PHOTOGRAPHED WHAT WAS VISIBLE. PATIENT CONTINUES TO REST ON ICU LOW AIRLOSS BED. CHANGED SETTING TO SOFT MATTRESS SETTING. RECOMMEND: SIDE TO SIDE TURNING WHEN ABLE, CONTINUATION WITH ALL WOUND CARE ORDERS PREVIOUSLY PRESCRIBED BY MD. WOUND CARE TEAM WILL CONTINUE TO MONITOR. Addendum: 05/16/20 at 1821 by Denisha Thornton RN Amended: Links added.
--- NOTE | 2020-05-16 18:30 | NUR ---
WOUND CARE Midline abdominal dressing changed per Dr Caballero's order. Incision cleansed with NS, packing strips x4 removed one at a time and repacked with 1/4in packing strip then covered with bordered gauze dressing.
--- NOTE | 2020-05-16 19:00 | NUR ---
END OF SHIFT NOTE Patient remains intubated and sedated. Patient currently on Versed 5mg/hr, Fentanyl 100mcg/hr, Levophed 30mcg/hr, Dale 300mcg/min, Vasopressin 0.07unit/min, and Epinephrine 10mcg/min. Patient's Right IJ TLC with CVP measuring ~8-11. Goldstein draining dark yellow UOP, 2950ml noted this shift. Vent settings AC 26 TV 500 P5 fiO2 30% with ET 8.0/24. Correctional officers at the bedside. Report to be given to Letitia AGRAWAL RN.
--- NOTE | 2020-05-16 19:15 | NUR ---
Respiratory note: ABG DONE, DR. JUAN NOTIFIED OF ABG RESULTS. REPEAT ABG IN 3 HRS.
--- NOTE | 2020-05-16 19:30 | NUR ---
OPENING NOTE: INTUBATED AND SEDATED. GROSSLY UNRESPONSIVE. NOTED TO TENSE MUSCLES WITH NOXIOUS STIMULI. HYPOACTIVE GAG/COUGH. PUPILS 2+ SLUGGISH. SINUS TACH WITH PACs, HR 100s. CHELE TO LEFT RADIAL, PATENT AND CDI, PRESSURES > 100, MAP > 75. NIBP SIMILAR TO CHELE PRESSURE. 8.0 ETT 24 AT THE LIP. LS CTA, DIMINISHED TO BASES. MINIMAL TO SMALL ORAL SECRETIONS. EVEN AND UNLABORED BREATHING, SpO2>95% ON CURRENT VENT SETTINGS. NGT TO LCS, +AIR BOLUS, THICK DARK BILIOUS WITH WHAT APPEARS TO BE STOOL PARTICLES. HYPOACTIVE TO ABSENT BS. MLI WITH DRESSING, CDI. RIGHT AND LEFT ABDOMINAL MARILYN, CDI. MAY PATENT AND INTACT, DRAINING LIGHT FILEMON URINE. SEE WOUND AND SKIN FLOWSHEET FOR FURTHER ASSESSMENT. RIGHT IJ TLC, CDI, AND PATENT WITH BLOOD RETURN. 20 G LEFT AC PIV, CDI AND PATENT WITH BLOOD RETURN. RIGHT FOREARM X2 20 G PIV, CDI AND PATENT WITH BLOOD RETURN. REINFORCED POC. MAINTAINED PATIENT SAFETY: BED LOCKED AND IN THE LOWEST POSITION, FREQUENT VISUAL CHECKS. WILL CONT CARE
--- NOTE | 2020-05-16 19:35 | NUR ---
REPOSITIONING: PER DAY SHIFT, PATIENT DOES NOT TOLERATE REPOSITIONING. PLACED BED ON AUTO ROTATE WITH 10 MINUTE HOLD RIGHT, CENTER, AND LEFT. PATIENT TOLERATING WELL SO FAR. WILL CONT CARE
[2020-05-16] MEDS ORDERED: TPN PER PHARMACY IV NR ×11 (20:00)
--- NOTE | 2020-05-16 20:00 | NUR ---
DR JUAN AT BEDSIDE: ORDERS TO INCREASE SODIUM BICARB DRIP TO 150 ML/HR AND CONTINUE IT UNTIL ABG RESULTS. ORDERS FOR LAST ABG AT 2100, AND THEN RESTART Q3H ABG IN THE AM. ORDERS READBACK AND VERIFIED.
--- NOTE | 2020-05-16 22:20 | NUR ---
MOVED INTO ROOM 101: ASSISTED BY RT BONE YVONNE, OB SCRUB TECH, US CED. UNEVENTFUL MOVE, PATIENT REMAINED STABLE THROUGHOUT TRANSPORT.
[2020-05-16] MEDS: SODIUM BICARBONATE 50ML VIAL 150 ML in SOD CHL 0.45% 1,000 ML IV SCH (22:33)
[2020-05-17] VITALS (116 sets, daily range): BP systolic 83–129; BP diastolic 53–85
--- NOTE | 2020-05-17 00:16 | NUR ---
TEMP 99.5F RECTALLY: TRENDING UP. WILL PLACE ICE PACKS IN BILATERAL AXILLA TO PREVENT FURTHER ESCALATION.
[2020-05-17] MEDS: PHENYLEPHRINE INJ 40 MG in SODIUM CHL 0.9% 250 ML IV SCH ×5 (02:44→20:49)
--- NOTE | 2020-05-17 03:00 | NUR ---
TEMP DOWN TO 98.4F RECTALLY - REMOVED ICE PACKS
[2020-05-17] MEDS: ACCU-CHEK COMFORT CURVE STRIP VI SCH ×6 (03:30→23:57)
[2020-05-17] MEDS: SODIUM BICARBONATE 50ML VIAL 150 ML in SOD CHL 0.45% 1,000 ML IV SCH ×4 (03:40→22:49)
[2020-05-17] MEDS: MIDAZOLAM DRIP 50 mg/50mL 50 ML IV SCH ×3 (03:41→18:37)
--- NOTE | 2020-05-17 03:41 | NUR ---
BG: ON LEFT HAND 68. ON RIGHT HAND 175. WILL AWAIT AM SERUM GLUCOSE TO RESULT BEFORE ADMINISTERING INSULIN.
[2020-05-17] MEDS: InsuLIN REG 1unit/0.01ml Soln (100units/ml) SC SCH ×6 (04:00→23:57)
--- NOTE | 2020-05-17 04:15 | NUR ---
BED BATH WITH CHG WIPES, GABY CARE, MAY CARE, ORAL CARE, AND PARTIAL LINEN CHANGE COMPLETED
[2020-05-17] MEDS: NOREPINEPHRINE BITARTRATE 16 MG in SODIUM CHL 0.9% 250 ML IV SCH ×4 (04:22→22:22)
[2020-05-17 04:47] LABS: Basophils # (auto) 0 10 ^3/uL (0-0.2); Eosinophils # (auto) 0 10 ^3/uL (0-0.8); Hemoglobin 7.8 g/dL (13.5-17.5); Lymphocytes # (auto) 0.4 10 ^3/uL (0.4-5.4); Monocytes # (auto) 0.1 10 ^3/uL (0-1.3); White Blood Cell 7.9 10^3/uL (4.4-10.8)
[2020-05-17 04:49] LABS: Basophils % (auto) 0.1 % (0.0-2.0); Eosinophils % (auto) 0.4 % (0.0-7.0); Hematocrit 23.6 % (41.0-53.0); Lymphocytes % (auto) 4.4 % (10.0-50.0); Mean Corpuscular Hemoglobin 26.8 pg (28.0-32.0); Mean Corpuscular Hgb Conc. 33.1 g/dL (32.0-36.0); Mean Corpuscular Volume 81.1 fL (80.0-100.0); Monocytes % (auto) 1.8 % (0.0-12.0); Neutrophils # (auto) 7.4 10 ^3/uL (1.6-8.6); Neutrophils % (auto) 93.3 % (37.0-80.0); Nucleated Red Blood Cells % 0.4 %; Platelet Count (auto) 201 10^3/uL (140-450); Red Blood Cells 2.91 10^6/uL (4.5-5.90); Red Cell Distribution Width 17.6 % (11.8-14.3)
[2020-05-17 05:05] LABS: Potassium 3.4 mmol/L (3.5-5.1)
[2020-05-17] MEDS: fentaNYL Drip 2500mCg/250mlNS 250 ML IV SCH (05:10)
[2020-05-17] MEDS: HEPARIN SODIUM (PORCINE) 5000 UNITS/ML 1ML VIAL SC SCH ×3 (05:16→21:29)
--- NOTE | 2020-05-17 05:16 | NUR ---
SCHEDULED HEPARIN IM HELD - HGB 7.8
[2020-05-17] MEDS: ALBUMIN 25% 100 ML IV SCH ×4 (05:17→23:48)
[2020-05-17 05:18] LABS: Albumin 2.9 g/dL (3.4-5.0); BUN/Creatinine Ratio 21.1; Bilirubin, Total 2.6 mg/dL (0.2-1.0); Calcium 6.4 mg/dL (8.5-10.1); Magnesium 1.9 mg/dL (1.6-2.6); Phosphorus 2.5 mg/dL (2.5-4.90); Total Protein 4.9 g/dL (6.4-8.2)
[2020-05-17 05:22] LABS: INR 1.88 (0.9-1.15)
[2020-05-17 05:46] LABS: Partial Thromboplastin Time 79.7 sec (23.0-31.2)
--- NOTE | 2020-05-17 06:11 | NUR ---
MARILYN OUTPUT: LEFT: 30 ML DARK SEROUS RIGHT 10 ML LIGHT SEROUS
--- NOTE | 2020-05-17 06:13 | NUR ---
TEMP 99.7F RECTALLY - ICE PACK APPLIED TO BACK OF NECK
--- NOTE | 2020-05-17 06:56 | NUR ---
2 AMPS OF B[address]ARB PER [address]. JUAN
[2020-05-17] MEDS ORDERED: SODIUM BICARBONATE 8.4% INJ 50ML SYRINGE ONE (06:58)
[2020-05-17] MEDS ORDERED: SODIUM BICARBONATE 8.4 % INJ 50ML VIAL IV ONE (07:00)
--- NOTE | 2020-05-17 07:31 | NUR ---
REPORT AND CARE ENDORSED TO MICHAEL MCDOWELL
[2020-05-17] MEDS: SODIUM CHLORIDE 0.9% 1,000 ML IV SCH (08:30)
--- NOTE | 2020-05-17 09:00 | NUR ---
RECTAL TEMP INCREASED TO 100.4. REPLACED ICE PACKS JIMMY. AXILLA AND PLACED IN GROIN AREA. ST, HR 130'S WITHOUT ECTOPY. MONITORING TEMP.
[2020-05-17] MEDS: PANTOPRAZOLE 40 MG/10 ML VIAL INJ IV SCH ×2 (09:44→21:50)
[2020-05-17] MEDS: VASOPRESSIN 50 UNITS in D5W 5% 247.5 ML IV SCH ×2 (09:45→20:07)
[2020-05-17] MEDS: EPINEPHrine HCL 250 ML IV SCH (09:46)
[2020-05-17] MEDS: ERTAPENEM SOD INJ 1 GM in SODIUM CHL 0.9% 50 ML IV SCH (09:48)
--- NOTE | 2020-05-17 10:15 | NUR ---
DR. JUAN Provider/Hospitalist at bedside. GAVE UPDATE ON PT. NEW ORDERS RECEIVED.
--- NOTE | 2020-05-17 11:00 | NUR ---
PT'S. MOM AND DAUGHTERS AND SON HERE TO VISIT. GIVEN PERMISSION FOR FAMILY TO COME FROM OUR DIRECTOR AND PERMISSION GIVEN FROM THE SNF. GUARD BROUGHT FAMILY IN. ALLOWED TO VISIT FROM 11AM TO 2PM TODAY ONLY.
[2020-05-17] MEDS ORDERED: POTASSIUM PHOSP 22MEQ(15MMOLE) in NS 100 ML IV ONE (11:45)
[2020-05-17] MEDS ORDERED: POTASSIUM CHL 20MEQ/100ML 100 ML IV ONE (11:45)
--- NOTE | 2020-05-17 12:05 | NUR ---
DR. CASTELLON Provider/Hospitalist at bedside. GAVE UPDATE ON PT. NEW ORDERS RECEIVED.
[2020-05-17] MEDS: CALCIUM GLUC 4.65meq/50ml D5AE 50 ML IV SCH ×2 (12:33→13:17)
--- NOTE | 2020-05-17 12:39 | NUR ---
A-LINE SBP 120'S WITH GOOD PLETH. ST, HR 130'S WITHOUT ECTOPY. TITRATED EPINEPHRINE GTT. OFF. MONITORING BP.
[2020-05-17 13:26] LABS: Hematocrit 21.9 % (41.0-53.0); Hemoglobin 7.3 g/dL (13.5-17.5); Mean Corpuscular Hemoglobin 25.9 pg (28.0-32.0); Mean Corpuscular Hgb Conc. 33.2 g/dL (32.0-36.0); Platelet Count (auto) 162 10^3/uL (140-450); Red Cell Distribution Width 17.2 % (11.8-14.3); White Blood Cell 7.3 10^3/uL (4.4-10.8)
[2020-05-17 13:30] LABS: Basophils % (manual) 0 (0.0-2.0); Blast Cells 0; Eosinophils % (manual) 0 (0-7); Myelocytes % 0; Promyelocytes % 0; Reactive Lymphocytes 0
--- NOTE | 2020-05-17 13:40 | NUR ---
Called/paged Dr. CASTELLON called re:. Waiting for call back. Continue care.
[2020-05-17 13:53] LABS: Band Neutrophils % (manual) 25; Lymphocytes % (manual) 6 (10.0-50.0); Metamyelocytes % 2; Monocytes % (manual) 2 (0-12)
--- NOTE | 2020-05-17 14:10 | NUR ---
returned call Dr. CASTELLON returned call, updated on patient status and reason for call, orders received TO GIVE 2 UNITS PRBC'S THIS AM. Continue care.
--- NOTE | 2020-05-17 14:21 | NUR ---
DR. TONY Provider/Hospitalist at bedside. GAVE UPDATE ON PT. NEW ORDERS RECEIVED.
--- NOTE | 2020-05-17 15:05 | NUR ---
CHANGED DSG. TO MID-LINE ABD. PER DR. TONY ORDER. EDGES WELL APPROXIMATED, KATHERYN INTACT. LOWER PART OF INCISION DRAINING MOD. AMOUNT SEROUS DRAINAGE.
--- NOTE | 2020-05-17 15:32 | NUR ---
CONSENT GIVEN BY PT. PREVIOUSLY FOR BLOOD TRANSFUSION. STARTED 1 UNIT PRBC'S VIA TLC RT. IJ ORDERED. HEPARIN SQ DOSE HELD AT 1400, LAST HGB. 7.3 THIS AFTERNOON. PT. HAS NO SIGNS OF BLEEDING.
--- NOTE | 2020-05-17 19:30 | NUR ---
OPENING NOTE: INTUBATED AND SEDATED. GROSSLY UNRESPONSIVE. NOTED TO TENSE MUSCLES WITH NOXIOUS STIMULI. HYPOACTIVE GAG/COUGH. PUPILS 2+ SLUGGISH. SINUS TACH WITH PACs, HR 130s. CHELE TO LEFT RADIAL, PATENT AND CDI, PRESSURES > 100, MAP > 75. NIBP SIMILAR TO CHELE PRESSURE. 8.0 ETT 24 AT THE LIP. LS CTA, DIMINISHED TO BASES. MINIMAL TO SMALL ORAL SECRETIONS. EVEN AND UNLABORED BREATHING, SpO2>95% ON CURRENT VENT SETTINGS. NGT TO LCS, +AIR BOLUS, THICK DARK BILIOUS WITH WHAT APPEARS TO BE STOOL PARTICLES. HYPOACTIVE TO ABSENT BS. MLI WITH DRESSING, CDI. RIGHT AND LEFT ABDOMINAL MARILYN, CDI. MAY PATENT AND INTACT, DRAINING LIGHT FILEMON URINE. SEE WOUND AND SKIN FLOWSHEET FOR FURTHER ASSESSMENT. RIGHT IJ TLC, CDI, AND PATENT WITH BLOOD RETURN. 20 G LEFT AC PIV, CDI AND PATENT WITH BLOOD RETURN. RIGHT FOREARM X2 20 G PIV, CDI AND PATENT WITH BLOOD RETURN. REINFORCED POC. MAINTAINED PATIENT SAFETY: BED LOCKED AND IN THE LOWEST POSITION, FREQUENT VISUAL CHECKS. WILL CONT CARE
--- NOTE | 2020-05-17 19:30 | NUR ---
TEMP 100F RECTALLY: ICE PACKS APPLIED BY PREVIOUS RN. COOL WASH CLOTH PLACED TO FOREHEAD. ICE PACK APPLIED TO NECK
[2020-05-17] MEDS ORDERED: TPN PER PHARMACY IV NR ×10 (20:00)
--- NOTE | 2020-05-17 20:00 | NUR ---
CVP - UNABLE TO MONITOR AT THIS TIME D/T BLOOD TRANSFUSION THROUGH PORT
--- NOTE | 2020-05-17 20:30 | NUR ---
2ND UNIT PRBC TRANSFUSED: NO S/S OF TRANSFUSION REACTION. TOLERATED WELL.
--- NOTE | 2020-05-17 21:00 | NUR ---
FFP HUNG: WILL REMAIN AT BEDSIDE TO MONITOR FOR ANY S/S OF TRANSFUSION REACTION. WILL CONT CARE
--- NOTE | 2020-05-17 21:15 | NUR ---
TOLERATING FFP TRANSFUSION THUS FAR
--- NOTE | 2020-05-17 21:29 | NUR ---
SCHEDULED HEPARIN HELD D/T INCREASED PTT, AND DROP IN HGB: WILL ENDORSE TO DAY SHIFT TO CLARIFY ORDER.
--- NOTE | 2020-05-17 22:26 | NUR ---
ASKED BLOOD BANK TO THAW 2ND FFP
--- NOTE | 2020-05-17 22:29 | NUR ---
TEMP DOWN TO 99.1F
--- NOTE | 2020-05-17 23:05 | NUR ---
FFP TRANSFUSED: NO S/S OF TRANSFUSION REACTION AT THIS TIME. WILL CONT CARE.
--- NOTE | 2020-05-17 23:20 | NUR ---
2ND FFP HUNG
[2020-05-18] VITALS (106 sets, daily range): BP systolic 98–135; BP diastolic 55–91
--- NOTE | 2020-05-18 01:16 | NUR ---
2ND FFP TRANSFUSED: NO S/S OF TRANSFUSION REACTION
--- NOTE | 2020-05-18 02:04 | NUR ---
WOUND CARE: SACRUM: REMOVED PREVIOUS OPTIFOAM. DTI TO SACRUM. CLEANSED WITH CHG WIPE. LET AIR DRY. COVERED WITH GENTLE OPTIFOAM
--- NOTE | 2020-05-18 02:04 | NUR ---
BED BATH WITH CHG WIPES, GABY CARE, MAY CARE, ORAL CARE, AND PARTIAL LINEN CHANGE COMPLETED: PATIENT TOLERATED FAIRLY WELL.
[2020-05-18] MEDS: PHENYLEPHRINE INJ 40 MG in SODIUM CHL 0.9% 250 ML IV SCH (02:06)
[2020-05-18] MEDS: fentaNYL Drip 2500mCg/250mlNS 250 ML IV SCH ×2 (02:08→22:31)
[2020-05-18 03:38] LABS: Basophils # (auto) 0 10 ^3/uL (0-0.2); Basophils % (auto) 0.1 % (0.0-2.0); Eosinophils # (auto) 0.1 10 ^3/uL (0-0.8); Eosinophils % (auto) 0.7 % (0.0-7.0); Hematocrit 27.2 % (41.0-53.0); Hemoglobin 9.2 g/dL (13.5-17.5); Lymphocytes # (auto) 0.3 10 ^3/uL (0.4-5.4); Lymphocytes % (auto) 3.5 % (10.0-50.0); Mean Corpuscular Hemoglobin 27.3 pg (28.0-32.0); Mean Corpuscular Volume 80.1 fL (80.0-100.0); Monocytes # (auto) 0.2 10 ^3/uL (0-1.3); Monocytes % (auto) 2.4 % (0.0-12.0); Neutrophils # (auto) 6.9 10 ^3/uL (1.6-8.6); Neutrophils % (auto) 93.3 % (37.0-80.0); Platelet Count (auto) 112 10^3/uL (140-450); Red Blood Cells 3.39 10^6/uL (4.5-5.90); Red Cell Distribution Width 16.7 % (11.8-14.3); White Blood Cell 7.4 10^3/uL (4.4-10.8)
[2020-05-18] MEDS: ACCU-CHEK COMFORT CURVE STRIP VI SCH ×6 (03:46→23:17)
[2020-05-18] MEDS: InsuLIN REG 1unit/0.01ml Soln (100units/ml) SC SCH ×6 (03:46→23:16)
[2020-05-18 03:52] LABS: INR 1.49 (0.9-1.15); Partial Thromboplastin Time 52.8 sec (23.0-31.2)
[2020-05-18 03:53] LABS: Calcium 6.4 mg/dL (8.5-10.1); Magnesium 1.8 mg/dL (1.6-2.6); Potassium 3.3 mmol/L (3.5-5.1)
[2020-05-18 03:57] LABS: BUN/Creatinine Ratio 27.1; Bilirubin, Total 3.8 mg/dL (0.2-1.0); Phosphorus 1.4 mg/dL (2.5-4.90); Total Protein 4.9 g/dL (6.4-8.2)
[2020-05-18] MEDS: MIDAZOLAM DRIP 50 mg/50mL 50 ML IV SCH ×3 (04:12→16:51)
--- NOTE | 2020-05-18 04:19 | NUR ---
TEMP 99.9F RECTALLY: PLACED ICE PACKS ON, COOL WASH CLOTH TO FOREHEAD
[2020-05-18] MEDS: HEPARIN SODIUM (PORCINE) 5000 UNITS/ML 1ML VIAL SC SCH (05:32)
[2020-05-18] MEDS: ALBUMIN 25% 100 ML IV SCH ×4 (05:32→23:58)
--- NOTE | 2020-05-18 05:32 | NUR ---
SCHEDULED HEPARIN SQ HELD: PLATELETS DECREASED, PTT STILL ELEVATED. PLANS FOR VITAMIN K ADMINISTRATION TODAY. WILL ENDORSE TO DAY SHIFT TO CLARIFY ORDER
--- NOTE | 2020-05-18 05:35 | NUR ---
MARILYN OUTPUT: LEFT 40 ML RIGHT 10 ML
[2020-05-18] MEDS: SODIUM BICARBONATE 50ML VIAL 150 ML in SOD CHL 0.45% 1,000 ML IV SCH (06:44)
[2020-05-18] MEDS: NOREPINEPHRINE BITARTRATE 16 MG in SODIUM CHL 0.9% 250 ML IV SCH ×2 (06:44→15:29)
--- NOTE | 2020-05-18 07:19 | NUR ---
REPORT AND CARE ENDORSED TO MICHAEL MCDOWELL
[2020-05-18] MEDS: VASOPRESSIN 50 UNITS in D5W 5% 247.5 ML IV SCH ×2 (07:44→16:51)
--- NOTE | 2020-05-18 08:30 | NUR ---
RECTAL TEMP 99.9. REPLACED ICE PACKS JIMMY. AXILLA AND GROIN. NO COVERS ON PT. FAN ON PT. MONITORING TEMP.
[2020-05-18] MEDS: PANTOPRAZOLE 40 MG/10 ML VIAL INJ IV SCH ×2 (09:27→21:52)
[2020-05-18] MEDS: PHYTONADIONE (VIT K)10 MG/ML 1ML VIAL SUBCUT SCH (09:28)
[2020-05-18] MEDS: ERTAPENEM SOD INJ 1 GM in SODIUM CHL 0.9% 50 ML IV SCH (09:29)
--- NOTE | 2020-05-18 09:50 | NUR ---
DR. CASTELLON Provider/Hospitalist at bedside. GAVE UPDATE ON PT. NEW ORDERS RECEIVED.
--- NOTE | 2020-05-18 10:00 | NUR ---
A-LINE SBP 120'S. TITRATING NEOSYNEPHRINE GTT. DOWN TO KEEP SBP >90. MONITORING BP.
--- NOTE | 2020-05-18 10:10 | NUR ---
DR. TONY Provider/Hospitalist at bedside. GAVE UPDATE ON PT. NEW ORDERS RECEIVED.
[2020-05-18] MEDS ORDERED: POTASSIUM CHL 20MEQ/100ML 100 ML IV SCH (10:15)
[2020-05-18] MEDS ORDERED: FUROSEMIDE 20 MG/2 ML VIAL IV ONE (10:15)
[2020-05-18] MEDS: SODIUM CHLORIDE 0.9% 1,000 ML IV SCH (10:34)
--- NOTE | 2020-05-18 10:42 | NUR ---
Nutrition Followup Notes Wt: 93.6 kg Pt is intubated, sedated with MD at bedside. Pt is NPO with PN support @ 60 ml/hr providing 1400 kcals and 70 gm proteins 1120 NCP. pt with fair PN support as it meets 70-79% kcals and b609-857% proteins Est energy needs [id number] kcal (25-28 kcal/kg BW 70.6kg) est protein needs 56-71g (0.8-1g/kg BW 70.6kg) will reassess prn. LABS: GLU 123 H ALB 3.0 L, CA 6.4 L, JIMMY 3.8 H GI: Pt had 300 ml gastric drainage yesterday per RN doc BS: 12 high risk. Refer to wound assessment report for full details. PES: 1) Inadequate oral intake aeb pt intubated r/t current medical condition Comments Comments: Continue to monitor NPO status, PN tolerance, labs, skin. F/u high 2-3 days Rec: 1) Advance PN support to meet > 75% of needs. 2) advance diet as medically feasible. 3) refer pt to [facility]PD on DC. 3) Continue current plan of care
[2020-05-18] MEDS ORDERED: POTASSIUM PHOSPHATE 44 MEQ in D5W 5% 250 ML IV ONE (10:45)
--- NOTE | 2020-05-18 10:58 | NUR ---
DR. JUAN Provider/Hospitalist at bedside. GAVE UPDATE ON PT. NEW ORDERS RECEIVED.
[2020-05-18] MEDS ORDERED: MAGNESIUM SULFATE 1GM/100ML 100 ML IV ONE (11:15)
[2020-05-18] MEDS: CALCIUM GLUC 4.65meq/50ml D5AE 50 ML IV SCH ×2 (11:27→12:28)
[2020-05-18] MEDS: EPINEPHrine HCL 250 ML IV SCH (11:44)
--- NOTE | 2020-05-18 11:45 | NUR ---
WOUND CARE NOTE: IN TO SEE PATIENT AT THIS TIME TO VISUALIZE HIS RECENTLY ACQUIRED DTI TO THE RIGHT BUTTOCK. PATIENT IS MORE STABLE NOW, ABLE TO TURN/REPOSITION. HE CONTINUES TO BE ON MULTIPLE DRIPS, INCLUDING 3 VASOPRESSORS AT THIS TIME. CURRENT ABBY SCORE IS 11. HE CONTINUES TO BE INTUBATED, SEDATED, RESTS ON ICU LOW [facility] BED. PATIENT NOTED TO HAVE GENERALIZED EDEMA, WITH TAUT SKIN. BILATERAL FEET ARE DUSKIER BLUE/TIDWELL TODAY. THIS IS DUE TO VASOPRESSORS. PATIENT TURNED TO THE LEFT SIDE. HE HAS A 5 X 9 CM DARK MARROON INTACT DTI TO THE RIGHT BUTTOCK. THIS APPEARS TO BE A RESULT OF HIS MULTIPLE VASOPRESSOR USAGE. PATIENT REPOSITIONED ONTO ONTO LEFT SIDE, REDISTRIBUTING PRESSURE POINTS WITH PILLOWS/WEDGES. NEW WOUND PHOTOS TAKEN FOR REFERENCE AT THIS TIME OF BILATERAL FEET AND SACRUM/BUTTOCK. RECOMMEND: CONTINUATION WITH ALL WOUND CARE ORDERS PREVIOUSLY PRESCRIBED BY MD. WOUND CARE TEAM WILL CONTINUE TO MONITOR. Addendum: 05/18/20 at 1430 by Denisha Thornton RN Amended: Links added.
--- NOTE | 2020-05-18 13:28 | NUR ---
RECTAL TEMP INCREASED TO 100.9 WITH ICE PACKS JIMMY. AXILLA AND GROIN. MED. PT. WITH TYLENOL 975 MG. SUPPOSITORY. MONITORING TEMP. COOLING MEASURES IN PLACE.
--- NOTE | 2020-05-18 14:20 | NUR ---
CHANGED DSG. TO MID-LINE ABD PER DR. TONY ORDER FOR DAILY CHANGE. KATHERYN INTACT, EDGES WELL APPROXIMATED. SEROUS DRAINAGE FROM LOWER INCISION WHERE PACKING IS ON ONE SECTION. LT. SIDE OF ABD. WITH DRAIN WITH SEROUS DRAINAGE COMING OUT ONTO DSG.
--- NOTE | 2020-05-18 15:00 | NUR ---
RECTAL TEMP INCREASED TO 101.3 AFTER TYLENOL GIVEN AND COOLING MEASURES IN PLACE. MONITORING TEMP.
--- NOTE | 2020-05-18 16:28 | NUR ---
A-LINE SBP ONE TEENS TO 120'S. TITRATED NEOSYNEPHRINE GTT. OFF. MONITORING BP.
--- NOTE | 2020-05-18 18:06 | NUR ---
Respiratory note: RECEIVED PT ON VENT V7, VENT CONNECTED TO RED OUTLET AND O2 SOURCE ALARMS ARE SET AND AUDIBLE. AMBU BAG AND MASK AT BEDSIDE. BS ARE COURSE T/O SXD X2 FOR MODERATE THICK SILVER/CREAMY SECRETIONS. GUARDS AT BEDSIDE. PTS CURRENT TEMP READING AT 100.9F. RT NAME AND PAGER ASSIGNMENT WRITTEN ON PTS ROOM BOARD. WILL CONTINUE TO MONITOR.
--- NOTE | 2020-05-18 19:30 | NUR ---
OPENING NOTE: INTUBATED AND SEDATED. GROSSLY UNRESPONSIVE. NOTED TO TENSE MUSCLES WITH NOXIOUS STIMULI. HYPOACTIVE GAG/COUGH. PUPILS 2+ SLUGGISH. SINUS TACH WITH PACs, HR 140s. CHELE TO LEFT RADIAL, PATENT AND CDI, PRESSURES > 100, MAP > 75. NIBP SIMILAR TO CHELE PRESSURE. 8.0 ETT 24 AT THE LIP. LS CTA, DIMINISHED TO BASES. MINIMAL TO SMALL ORAL SECRETIONS. EVEN AND UNLABORED BREATHING, SpO2>95% ON CURRENT VENT SETTINGS. NGT TO LCS, +AIR BOLUS, THICK DARK BILIOUS WITH WHAT APPEARS TO BE STOOL PARTICLES. HYPOACTIVE TO ABSENT BS. MLI WITH DRESSING, CDI. RIGHT AND LEFT ABDOMINAL MARILYN, CDI. MAY PATENT AND INTACT, DRAINING LIGHT FILEMON URINE. SEE WOUND AND SKIN FLOWSHEET FOR FURTHER ASSESSMENT. RIGHT IJ TLC, CDI, AND PATENT WITH BLOOD RETURN. 20 G LEFT AC PIV, CDI AND PATENT WITH BLOOD RETURN. RIGHT FOREARM X2 20 G PIV, CDI AND PATENT WITH BLOOD RETURN. REINFORCED POC. MAINTAINED PATIENT SAFETY: BED LOCKED AND IN THE LOWEST POSITION, FREQUENT VISUAL CHECKS. WILL CONT CARE
[2020-05-18] MEDS ORDERED: TPN PER PHARMACY IV NR ×10 (20:00)
--- NOTE | 2020-05-18 20:00 | NUR ---
Respiratory note: AT BEDSIDE FOR ROUTINE VENT CHECK. PTS CURRENT TEMP READING AT 100.8F. NO CHANGES MADE WILL CONTINUE TO MONITOR.
--- NOTE | 2020-05-18 21:27 | NUR ---
TEMP REMAINS 100.8F DESPITE COOLING MEASURES AND TYLENOL: PATIENT GIVEN COOL BATH WITH CHG WIPES, AND PLACED ON COOLING BLANKET. WILL CONT CARE
--- NOTE | 2020-05-18 21:53 | NUR ---
SEDATION INCREASED - HIGH PRESSURING THE VENT, AND BITING ETT
--- NOTE | 2020-05-18 22:01 | NUR ---
Respiratory note: AT BEDSIDE FOR ROUTINE VENT CHECK. RN KENROY COMMUNICATED SEDATION WAS SLIGHTLY INCREASED. SXD VIA ETT FOR MODERATE THICK SILVER/YELLOW SECRETIONS. PT BITTING ON ETT WHEN HE IS STIMULATED WILL PLACE OPA IN ORAL CAVITY TO PREVENT DAMAGE TO ETT. PTS CURRENT TEMP READING AT 99.9F. NO CHANGES MADE WILL CONTINUE TO MONITOR.
--- NOTE | 2020-05-18 22:04 | NUR ---
TEMP COMING DOWN - NOW 99.9F
--- NOTE | 2020-05-18 22:11 | NUR ---
SIZE 9.0 OPA PLACED IN ORAL CAVITY DUE TO PT BITTING ON ETT. COMMUNICATED TO MICHAEL JASMINE.
--- NOTE | 2020-05-18 22:36 | NUR ---
TEMP DOWN TO 99.1F
--- NOTE | 2020-05-18 22:40 | NUR ---
INCREASED FIO2 VIA VENT FROM 30% TO 40% DUE POST ABG RESULTS. COMMUNICATED RN KENROY ON O2 CHANGE.
--- NOTE | 2020-05-18 23:45 | NUR ---
20 G PIV STARTED TO RIGHT HAND
--- NOTE | 2020-05-18 23:59 | NUR ---
REMOVED PIVs: REMOVED PIVs TO LEFT AC AND RIGHT FOREARM D/T OUTDATED. TIPS INTACT. HEMOSTASIS ACHIEVED.
[2020-05-19] VITALS (104 sets, daily range): BP systolic 74–115; BP diastolic 55–92
--- NOTE | 2020-05-19 00:02 | NUR ---
Respiratory note: AT BEDSIDE FOR ROUTINE VENT CHECK. PTS CURRENT TEMP READING AT 98.4F. NO CHANGES MADE AT THIS TIME. WILL CONTINUE TO MONITOR.
[2020-05-19] MEDS: NOREPINEPHRINE BITARTRATE 16 MG in SODIUM CHL 0.9% 250 ML IV SCH ×2 (02:17→17:00)
[2020-05-19] MEDS: MIDAZOLAM DRIP 50 mg/50mL 50 ML IV SCH ×3 (02:18→19:00)
--- NOTE | 2020-05-19 02:18 | NUR ---
Respiratory note: AT BEDSIDE FOR ROUTINE VENT CHECK. SXD FOR SMALL THICK SILVER. PTS CURRENT TEMP READING AT 98.1F. NO CHANGES MADE AT THIS TIME. WILL CONTINUE TO MONITOR.
[2020-05-19] MEDS: InsuLIN REG 1unit/0.01ml Soln (100units/ml) SC SCH ×4 (03:36→18:15)
[2020-05-19] MEDS: ACCU-CHEK COMFORT CURVE STRIP VI SCH ×4 (03:36→18:20)
--- NOTE | 2020-05-19 04:12 | NUR ---
Respiratory note: AT BEDSIDE FOR ROUTINE VENT CHECK. NO CHANGES MADE. WILL HAVE DAY SHIFT CONTINUE POC.
[2020-05-19 04:20] LABS: Platelet Count (auto) 80 10^3/uL (140-450)
[2020-05-19 04:21] LABS: Hematocrit 24.6 % (41.0-53.0); Hemoglobin 8.4 g/dL (13.5-17.5); Mean Corpuscular Hemoglobin 27.1 pg (28.0-32.0); Mean Corpuscular Hgb Conc. 34.1 g/dL (32.0-36.0); Mean Corpuscular Volume 79.4 fL (80.0-100.0); Red Cell Distribution Width 16.9 % (11.8-14.3)
[2020-05-19 04:30] LABS: Albumin 3.2 g/dL (3.4-5.0); Calcium 6.9 mg/dL (8.5-10.1); Magnesium 1.9 mg/dL (1.6-2.6); Potassium 3.5 mmol/L (3.5-5.1)
[2020-05-19 04:34] LABS: BUN/Creatinine Ratio 31.7; Bilirubin, Total 4.1 mg/dL (0.2-1.0); Phosphorus 1.7 mg/dL (2.5-4.90); Total Protein 4.8 g/dL (6.4-8.2)
[2020-05-19 04:36] LABS: Basophils % (manual) 0 (0.0-2.0); Blast Cells 0; Eosinophils % (manual) 0 (0-7); INR 1.53 (0.9-1.15); Partial Thromboplastin Time 54.1 sec (23.0-31.2); Promyelocytes % 0; Reactive Lymphocytes 0
[2020-05-19 05:08] LABS: Band Neutrophils % (manual) 17; Lymphocytes % (manual) 9 (10.0-50.0); Metamyelocytes % 1; Monocytes % (manual) 5 (0-12); Myelocytes % 1
[2020-05-19] MEDS: ALBUMIN 25% 100 ML IV SCH ×3 (05:27→18:00)
--- NOTE | 2020-05-19 05:27 | NUR ---
PEDAL PULSES: UNABLE TO LOCATE DORSALIS PEDIS OR POSTERIOR TIBIALIS TO RIGHT FOOT EVEN USING DOPPLER, FOOT IS PURPLE AND COLD FROM ANKLE TO TOES. DORSALIS PEDIS AND POSTERIOR TIBIALIS TO LEFT FOOT IS AUDIBLE VIA DOPPLER, FOOT IS WARM WITH SLIGHT PURPLE DISCOLORATION. WILL ENDORSE TO DAY SHIFT TO BRING TO MD ATTENTION.
--- NOTE | 2020-05-19 05:29 | NUR ---
MARILYN OUT PUT: RIGHT MARILYN: 10 ML LIGHT SEROUS. LEFT MARILYN: 60 ML DARK SEROUS. NOTED TO BE OOZING FROM AROUND INSERTION SITE.
--- NOTE | 2020-05-19 07:20 | NUR ---
REPORT AND CARE ENDORSED TO MICHAEL LEROY
--- NOTE | 2020-05-19 08:30 | NUR ---
DR JUAN PHONES - UPDATED ON PATIENT CONDITION - NO ORDERS RECEIVED.
[2020-05-19] MEDS: PHENYLEPHRINE INJ 40 MG in SODIUM CHL 0.9% 250 ML IV SCH (08:54)
--- NOTE | 2020-05-19 09:30 | NUR ---
UNABLE TO PALPATE DP OR PT PULSES IN RIGHT FOOT. FOOT COOL AND DUSKY/CYANOTIC - CALL PLACED TO DR CASTELLON. Addendum: 05/20/20 at 1304 by Flora Dangelo RN Right popliteal pulse auscultated with doppler
--- NOTE | 2020-05-19 09:46 | NUR ---
DR CASTELLON RETURNS CALL - INFORMED OF RIGHT FOOT PULSELESSNESS - ORDERS RECEIVED.
[2020-05-19] MEDS: PHYTONADIONE (VIT K)10 MG/ML 1ML VIAL SUBCUT SCH (10:00)
[2020-05-19] MEDS ORDERED: POTASSIUM PHOSPHATE 44 MEQ in D5W 5% 250 ML IV ONE (10:15)
--- NOTE | 2020-05-19 10:20 | NUR ---
VITAMIN K HELD THIS AM PENDING CLARIFICATION WITH DR CASTELLON RE:RIGHT FOOT COLDNESS AND R/O DVT/ARTERIAL OCCLUSION
[2020-05-19] MEDS: PANTOPRAZOLE 40 MG/10 ML VIAL INJ IV SCH ×2 (10:24→21:49)
[2020-05-19] MEDS: SODIUM CHLORIDE 0.9% 1,000 ML IV SCH (10:25)
[2020-05-19] MEDS: CALCIUM GLUC 4.65meq/50ml D5AE 50 ML IV SCH ×2 (10:44→12:25)
--- NOTE | 2020-05-19 11:03 | NUR ---
2D ECHO IN PROGRESS AT BEDSIDE.
--- NOTE | 2020-05-19 11:20 | NUR ---
MANAGER VIDEO GAMES AT BEDSIDE FOR DOPPLER STUDIES
--- NOTE | 2020-05-19 12:00 | NUR ---
NV ASSESSMENT TO RIGHT FOOT UNCHANGED.
--- NOTE | 2020-05-19 12:10 | NUR ---
ABD DRSG CHANGED - - DRSG SATURATED WITH SEROSANG DRNG AND MOD AMT YELLOW PURULENT DRNG NOTED AT DISTAL END OF INCISION. MIDLINE INCISION CLEAN - OPEN AREAS ALONG INCISION LINE PACKED WITH IODOFORM GAUZE. BILAT MARILYN SITES CLEAN AND DRY. DRSG CHANGED PER STERILE TECHNIQUE. BILAT MARILYN DRAINS WITH SM AMT SEROUS DRNG NOTED. STERILE 4X4 AND ABD DRSG. IN PLACE, SECURED WITH MEDIPORE TAPE.
[2020-05-19] MEDS: EPINEPHrine HCL 250 ML IV SCH (12:13)
--- NOTE | 2020-05-19 12:20 | NUR ---
SONOGRAPHY TECHNICIAN REQUESTED GUARD AT BEDSIDE REMOVE PLASTIC SHACKLE TO RT FOOT DUE TO VASCULAR STATUS - REMOVED AFTER PERMISSION OBTAINED FROM HIS SUPERIORS.
--- NOTE | 2020-05-19 12:45 | NUR ---
Dr Caballero visits and examines patient - orders received.
[2020-05-19] MEDS ORDERED: FUROSEMIDE 20 MG/2 ML VIAL IV ONE (13:00)
--- NOTE | 2020-05-19 13:15 | NUR ---
CALL PLACED TO DR ADAM RE: ARTERIAL DOPPLER STUDY RESULTS
[2020-05-19] MEDS: ERTAPENEM SOD INJ 1 GM in SODIUM CHL 0.9% 50 ML IV SCH (14:15)
--- NOTE | 2020-05-19 14:30 | NUR ---
DR CASTELLON VISITS AND EXAMINES PATIENT-INFORMED OF ARTERIAL STUDY SHOWING OCCLUSION AND UPDATED ON PATIENT CONDITION - ORDERS RECEIVED.
[2020-05-19] MEDS ORDERED: DEXTROSE (50%) 50ML SYRG IV PRN (15:15)
--- NOTE | 2020-05-19 15:30 | NUR ---
DR JUAN VISITS-ORDER RECEIVED.
--- NOTE | 2020-05-19 16:00 | NUR ---
NV ASSESSMENT - TOES AND UPPER THIRD OF FOOT NOW WHITE IN COLOR WITHOUT BLANCHING NOTED. NO PULSES WITH DOPPLER RIGHT LOWER EXTREMITY. FOOT REMAINS COLD TO TOUCH.
[2020-05-19] MEDS: fentaNYL Drip 2500mCg/250mlNS 250 ML IV SCH (16:58)
--- NOTE | 2020-05-19 18:11 | NUR ---
RECEIVED PT ON VENT V7, VENT CONNECTED TO RED OUTLET AND O2 SOURCE ALARMS ARE SET AND AUDIBLE. AMBU BAG AND MASK AT BEDSIDE. BS ARE FINE COURSE T/O,LAVAGED SXD FOR LARGE AMOUNT OF CREAMY YELLOW SECRETIONS. RN RAD AT BEDSIDE AND AWARE OF FINDINGS. GUARD AT BEDSIDE. PTS CURRENT TEMP IS 99.0F. WILL CONTINUE TO MONITOR Q2H AND OR MORE NEEDED.
[2020-05-19] MEDS ORDERED: TPN PER PHARMACY IV NR ×11 (20:00)
--- NOTE | 2020-05-19 20:20 | NUR ---
Respiratory note: AT BEDSIDE FOR ROUTINE VENT CHECK. NO CHANGES MADE. ABG OBTAINED VIA A-LINE. PTS CURRENT TEMP READING 99.1F. WILL CONTINUE TO MONITOR
[2020-05-19] MEDS: PIPERACILLIN-TAZOB 3.375GM 100 ML IV SCH (21:49)
[2020-05-20] VITALS (102 sets, daily range): BP systolic 75–153; BP diastolic 59–84
--- NOTE | 2020-05-20 00:34 | NUR ---
Respiratory note: AT BEDSIDE FOR ROUTINE VENT CHECK. NO CHANGES MADE. PTS CURRENT TEMP READING 99.5F. WILL CONTINUE TO MONITOR
--- NOTE | 2020-05-20 02:36 | NUR ---
Respiratory note: AT BEDSIDE FOR ROUTINE VENT CHECK. NO CHANGES MADE. PTS CURRENT TEMP READING 99.3F. WILL CONTINUE TO MONITOR
[2020-05-20] MEDS: MIDAZOLAM DRIP 50 mg/50mL 50 ML IV SCH ×3 (03:28→22:45)
[2020-05-20 03:47] LABS: Basophils # (auto) 0 10 ^3/uL (0-0.2); Basophils % (auto) 0.1 % (0.0-2.0); Eosinophils # (auto) 0 10 ^3/uL (0-0.8); Eosinophils % (auto) 0.6 % (0.0-7.0); Hematocrit 27.3 % (41.0-53.0); Hemoglobin 9.2 g/dL (13.5-17.5); Lymphocytes # (auto) 0.3 10 ^3/uL (0.4-5.4); Lymphocytes % (auto) 5.6 % (10.0-50.0); Mean Corpuscular Hemoglobin 26.8 pg (28.0-32.0); Mean Corpuscular Hgb Conc. 33.8 g/dL (32.0-36.0); Mean Corpuscular Volume 79.4 fL (80.0-100.0); Monocytes # (auto) 0.1 10 ^3/uL (0-1.3); Monocytes % (auto) 2.5 % (0.0-12.0); Neutrophils # (auto) 4.8 10 ^3/uL (1.6-8.6); Neutrophils % (auto) 91.2 % (37.0-80.0); Platelet Count (auto) 77 10^3/uL (140-450); Red Blood Cells 3.43 10^6/uL (4.5-5.90); Red Cell Distribution Width 17.2 % (11.8-14.3); White Blood Cell 5.3 10^3/uL (4.4-10.8)
[2020-05-20 03:58] LABS: Albumin 3.2 g/dL (3.4-5.0); Calcium 7.6 mg/dL (8.5-10.1); Magnesium 2.1 mg/dL (1.6-2.6); Potassium 3.3 mmol/L (3.5-5.1)
[2020-05-20 04:02] LABS: BUN/Creatinine Ratio 21.4; Bilirubin, Total 4.7 mg/dL (0.2-1.0); Phosphorus 3.1 mg/dL (2.5-4.90)
--- NOTE | 2020-05-20 04:14 | NUR ---
Respiratory note: AT BEDSIDE FOR END OF SHIFT VENT CHECK. NO CHANGES MADE. BS ARE FINE COURSE SXD VIA ETT FOR SMALL THICK SILVER SECRETIONS. PTS CURRENT TEMP READING 99.9F. WILL HAVE DAY SHIFT CONTINUE POC.
[2020-05-20] MEDS: ALBUMIN 25% 100 ML IV SCH ×4 (06:00→18:25)
[2020-05-20] MEDS: PIPERACILLIN-TAZOB 3.375GM 100 ML IV SCH ×3 (06:03→22:00)
--- NOTE | 2020-05-20 06:15 | NUR ---
Respiratory note: RECEIVED PATIENT ON V7 V200 VENT ORALLY INTUBATED WITH AN 8.0 ETT SECURED VIA SYLVIE AT THE 24CM MARKING AT THE LIP, AND MECHANICALLY VENTILATED WITH THE CHARTED SETTINGS. SPO2 99%, LUNG SOUNDS DIM T/O, SMALL AMOUNT OF THIN CLEAR SECRETIONS WHEN SUCTIONED. SKIN IS WARM/DRY TO THE TOUCH AND IS INTACT NEAR SYLVIE SITE. THERE IS A NGT IN THE RIGHT NARE AND IS SECURED TO THE NOSE, A TRIPLE LUMEN CENTRAL LINE IS PLACED IN THE RIGHT IJ, THERE IS A LEFT RADIAL ARTERIAL LINE. PITTING EDEMA NOTED IN BILATERAL UPPER AND LOWER EXTREMITIES, LEG SEQUENTIAL NOTED TO BE ON LEFT LEG ONLY. THERE ARE MULTIPLE WOUNDS ON THE RIGHT FOOT, AND A WOUND ON THE LEFT TOE. NO NEW AM CXR TO ASSESS. PATIENT IS UNRESPONSIVE TO BOTH VERBAL/TACTILE STIMULI AND IS SEDATED ON VERSED AND FENTANYL DRIPS. HE IS RESTING COMFORTABLY AND TOLERATING VENT WELL, NO CHANGES MADE. VENT PLUGGED INTO RED OUTLET AND ALL ALARMS ARE SET AND AUDIBLE. WILL CONTINUE TO ASSESS PATIENT WELL VENTILATOR FUNCTION.
[2020-05-20] MEDS: InsuLIN REG 1unit/0.01ml Soln (100units/ml) SC SCH ×4 (06:20→18:21)
[2020-05-20] MEDS: ACCU-CHEK COMFORT CURVE STRIP VI SCH ×4 (06:20→18:20)
[2020-05-20] MEDS ORDERED: ALBUMIN 25% 100 ML IV ONE (07:00)
[2020-05-20] MEDS: VASOPRESSIN 50 UNITS in D5W 5% 247.5 ML IV SCH (07:15)
--- NOTE | 2020-05-20 08:00 | NUR ---
NG DRAINING LT GREEN DRNG TO LCWS.
[2020-05-20] MEDS: PHENYLEPHRINE INJ 40 MG in SODIUM CHL 0.9% 250 ML IV SCH ×3 (08:20→22:45)
[2020-05-20] MEDS: NOREPINEPHRINE BITARTRATE 16 MG in SODIUM CHL 0.9% 250 ML IV SCH (08:20)
--- NOTE | 2020-05-20 08:30 | NUR ---
NEUROVASCULAR STATUS UNCHANGED TO RIGHT FOOT. NO PULSES PER DOPPLER, REMAINS COLD TO TOUCH AND PURPLE IN COLOR. POPLITEAL PULSE AUDIBLE WITH DOPPLER. SKIN TEARS NOTED TO INNER ASPECT OF FOOT - ARTEMIO FROM WOUND CARE NOTIFIED AND WILL EVALUATE WOUNDS.
--- NOTE | 2020-05-20 09:30 | NUR ---
DR JUAN PHONES - UPDATED ON PATIENT VENT SETTINGS AND SAO2 READINGS - NO NEW ORDERS RECEIVED.
[2020-05-20] MEDS: fentaNYL Drip 2500mCg/250mlNS 250 ML IV SCH (10:02)
[2020-05-20] MEDS: PANTOPRAZOLE 40 MG/10 ML VIAL INJ IV SCH ×2 (10:09→21:07)
[2020-05-20] MEDS: POTASSIUM CHL 20MEQ/100ML 100 ML IV SCH ×2 (10:09→11:26)
[2020-05-20] MEDS: SODIUM CHLORIDE 0.9% 1,000 ML IV SCH (10:15)
--- NOTE | 2020-05-20 10:30 | NUR ---
DISEASE CASE MANAGER NOTED NG DRAINING JOZEF DOUGHERTY DRALLI PER NG TUBE TO LCWS - WILL MONITOR.
--- NOTE | 2020-05-20 11:30 | NUR ---
LEFT ARTERIAL LINE DISCONTINUED AIRCRAFT CLEANER UNABLE TO DRAW BLOOD OR OBTAIN WAVEFORM. MANUAL PRESSURE APPLIED TO SITE X 10 MIN AFTER ARTERIAL LINE REMOVED - MINIMAL BLEEDING NOTED AT SITE.
[2020-05-20] MEDS: EPINEPHrine HCL 250 ML IV SCH (12:13)
--- NOTE | 2020-05-20 12:15 | NUR ---
ABD DRSG CHANGED PER STERILE TECHNIQUE - OLD DRSG SATURATED WITH SEROSANG AT PROXIMAL AND MEDIAL PORTIONS OF MIDLINE ABD INCISION. DISTAL END OF INCISION WITH YELLOW SEROUS DRNG NOTED. 3 SMALL AREAS OF INCISION OPEN AND PACKED WITH IODOFORM GUAZE SC ORDERS. DRY GAUZE APPLIED TO REMAINDER OF INCISION AND BILAT MARILYN SITES - PATIENT DELIA DRSG CHANGE WELL.
--- NOTE | 2020-05-20 12:45 | NUR ---
WOUND CARE NOTE: NOTIFIED BY BEDSIDE NURSE OF WORSENING OF HIS BLE ISCHEMIA. PATIENT CONTINUES WITH LEVOPHED VASOPRESSOR FOR HEMODYNAMIC STABILITY. BILATERAL LOWER RIGHT LEG/FOOT IS PURPLE, WITH OPEN BLISTERS NOTED, LEFT TRANSMETATARSAL FOOT IS PURPLE, BOTH FEET COOL TO TOUCH. HOSPITALIST IS AWARE OF PATIENT'S CONDITION. PHOTOGRAPHED FOR REFERENCE, PLACED IN CHART. RECOMMEND: LEAVE OPEN TO AIR, NO TAPE TO SKIN. WOUND CARE TEAM WILL CONTINUE TO MONITOR.
--- NOTE | 2020-05-20 12:45 | NUR ---
Dr. Caballero visits and examines patient-order received.
--- NOTE | 2020-05-20 15:04 | NUR ---
DR CASTELLON PHONES - RECEIVED ORDER FOR TRANSFER TO HIGHER LEVEL OF CARE. [facility] CONTACTED AND INFORMED OF ORDER FOR TRANSFER TO HIGHER LEVEL OF CARE - ORDER PLACED IN COMPUTER. RECEIVED FAX FOR [facility] AND PH NO. FOR [facility]. [facility] TO CALL BACK IF ANY OTHER INFO. NEEDED. LIVESTOCK TRUCKER NOTIFIED ONBOARDING SPECIALIST [place] OF NEED FOR TRANSFER TO HIGHER LEVEL OF CARE FOR VASCULAR SERVICES.
[2020-05-20 15:58] LABS: INR 1.65 (0.9-1.15); Partial Thromboplastin Time 54.9 sec (23.0-31.2)
--- NOTE | 2020-05-20 16:10 | NUR ---
SPOKE TO ALEC AT [facility] - GAVE ALL REQUESTED PATIENT AND CLINICAL INFORMATION. REQUESTED ALL INFORMATION TO BE FAXXED AGAIN TO A DIFFERENT FAX NO - [phone].
--- NOTE | 2020-05-20 16:20 | NUR ---
AL INFORMATION RE-FAXXED.
--- NOTE | 2020-05-20 17:15 | NUR ---
DR CASTELLON VISITS AND EXAMINES PATIENT - NO NEW ORDERS RECEIVED. ALL TRANSFER DOCUMENTS SIGNED.
--- NOTE | 2020-05-20 19:13 | NUR ---
[facility] PHONES TO UPDATE DESKTOP PUBLISHER THAT STILL NO BEDS ARE AVAILABLE AND LIKELY WILL NOT BE ANY THIS PM.
--- NOTE | 2020-05-20 19:14 | NUR ---
DR JUAN VISITS AND EXAMINES PATIENT - NO NEW ORDERS RECEIVED.
[2020-05-20] MEDS ORDERED: TPN PER PHARMACY IV NR ×8 (20:00)
[2020-05-21] VITALS (105 sets, daily range): BP systolic 87–119; BP diastolic 48–76
[2020-05-21 04:30] LABS: Potassium 3.9 mmol/L (3.5-5.1)
[2020-05-21 04:38] LABS: Albumin 3.3 g/dL (3.4-5.0); BUN/Creatinine Ratio 30.6; Bilirubin, Total 5.5 mg/dL (0.2-1.0); Calcium 7.3 mg/dL (8.5-10.1); Magnesium 2.2 mg/dL (1.6-2.6); Phosphorus 3.5 mg/dL (2.5-4.90); Total Protein 5.1 g/dL (6.4-8.2)
[2020-05-21] MEDS: InsuLIN REG 1unit/0.01ml Soln (100units/ml) SC SCH ×4 (06:00→18:00)
[2020-05-21] MEDS: ALBUMIN 25% 100 ML IV SCH ×2 (06:00)
[2020-05-21] MEDS: PIPERACILLIN-TAZOB 3.375GM 100 ML IV SCH ×3 (06:00→22:07)
[2020-05-21] MEDS: ACCU-CHEK COMFORT CURVE STRIP VI SCH ×4 (06:00→18:25)
[2020-05-21] MEDS: VASOPRESSIN 50 UNITS in D5W 5% 247.5 ML IV SCH (07:15)
--- NOTE | 2020-05-21 08:53 | NUR ---
I called [facility] [phone] and spoke with Steve, he said there are no beds available at this time.
--- NOTE | 2020-05-21 09:10 | NUR ---
I called [facility] and spoke with storehouse clerk Ilda, she said there are no ICU beds available at this time. I faxed higher level of care order to [facility] and [facility].
--- NOTE | 2020-05-21 09:31 | NUR ---
I called [facility] Quantitative Software Engineer Estela [phone] and Emily [phone] and left messages regarding the need to transfer to higher level of care and possible to non-contracted facilities-awaiting return call. I also faxed higher level of care order/current clinical information to [facility].
--- NOTE | 2020-05-21 09:42 | NUR ---
I received a call from [facility] Business Machine Operator Emily [phone] updated her on the status of the transfer. Per Emily, if patient goes anywhere besides [facility], they will need to do an HARMAN with the accepting facility.
--- NOTE | 2020-05-21 09:48 | NUR ---
I received a call from Kyara at [facility], provided her with additional clinical information as requested, she will present the information to her MD and will give me a call back.
[2020-05-21] MEDS: SODIUM CHLORIDE 0.9% 1,000 ML IV SCH (10:15)
[2020-05-21] MEDS: PANTOPRAZOLE 40 MG/10 ML VIAL INJ IV SCH ×2 (10:15→22:06)
--- NOTE | 2020-05-21 11:00 | NUR ---
WOUND CARE NOTE: IN TO SEE PATIENT AT THIS TIME FOR SKIN INTEGRITY MONITORING. PATIENT CONTINUES TO BE INTUBATED, SEDATED, RESTING ON ICU LOW AIRSS BED. PATIENT CONTINUES TO BE ON MULTIPLE DRIPS/VASOPRESSORS. NO CHANGE IN WOUND STATUS SEEN TO PATIENT'S ISCHEMIC BLE SINCE YESTERDAY. LOWER RIGHT LEG TO FOOT AND LEFT TRANSMETATARSAL FOOT ARE COOL TO TOUCH, PURPLE ECCHYMOSIS NOTED, WITH AN OPEN/SCABBED BLISTER TO RIGHT # 2 TOE, AND LEFT # 4 TOE. ECCHYMOSIS APPEARS TO DEMONSTRATE LITTLE TO NO CHANGE FROM YESTERDAY. PHOTOGRAPHED BOTH LOWER EXTREMITIES FOR REFERENCE, LEFT OPEN TO AIR. SACRAL WOUND OVER SCAR APPEARS TO SHOW NOW CHANGE, WITH 0.5 X 0.5 CM PARTIAL THICKNESS WOUND OVER COLLAGEN SCAR. PATIENT DOES HAVE DTI NOTED TO RIGHT BUTTOCK TO SACRUM FROM USE OF VASOPRESSORS. SKIN REMAINS NTACT, PURPLE TO BRIGHT RED. ZGUARD AND OPTIFOAM GENTLE SACRAL DRESSING APPLIED PRESCRIBED. RIGHT POSTERIOR UPPER THIGH HAS A 1.5 X 2.5 CM PARTIAL THICKNESS SKIN TEAR NOTED. APPLIED THERAHONEY, OPTIFOAM GENTLE DRESSING. ALL WOUNDS PHOTOGRAPHED FOR REFERENCE AT THIS TIME. RECOMMEND: EOD/PRN DRESSING CHANGE TO RIGHT POSTERIOR THIGH SKIN TEAR, CONTINUATION WITH ALL OTHER WOUND CARE ORDERS PREVIOUSLY PRESCRIBED BY MD. WOUND CARE TEAM WILL CONTINUE TO MONITOR. Addendum: 05/21/20 at 1343 by Denisha Thornton RN Amended: Links added.
[2020-05-21] MEDS ORDERED: NOREPINEPHRINE 8 MG/250ML KIT 250 ML IV ONE (11:12)
--- NOTE | 2020-05-21 11:19 | NUR ---
Nutrition Followup Notes Wt: 92.0 kg Pt is intubated, sedated with curtain drawn and RN at bedside. Pt is NPO with PN support @ 69 ml/hr providing 1740 kcals and 70 gm proteins 1460 NPCs. Pt with adequate PN support as it meets 88-99% of est kcals and 99-125% of est proteins. Est energy needs 9065-8062 kcal (25-28 kcal/kg BW 70.6kg) est protein needs 56-71g (0.8-1g/kg BW 70.6kg) will reassess prn. LABS: GLU 123 H ALB 3.3 L, CA 7.3 L, JIMMY 5.5 H, AST 119 H, ALT 116 H, CO2 34 H GI: Pt has a daily BM per RN doc BS: 11 high risk. Refer to wound assessment report for full details. PES: 1) Inadequate oral intake aeb pt intubated r/t current medical condition Comments Comments: Continue to monitor NPO status, PN tolerance, labs, skin. F/u high 2-3 days Rec: 1) Advance PN support to meet > 75% of needs. 2) advance diet as medically feasible. 3) refer pt to [facility] on DC. 3) Continue current plan of care
[2020-05-21] MEDS ORDERED: NOREPINEPHRINE BITARTRATE 2 ML IV ONE (11:28)
[2020-05-21] MEDS: NOREPINEPHRINE BITARTRATE 16 MG in SODIUM CHL 0.9% 250 ML IV SCH (11:35)
--- NOTE | 2020-05-21 11:36 | NUR ---
Spoke with [facility], there are no ICU beds available at this time.
[2020-05-21] MEDS ORDERED: FUROSEMIDE 40 MG/4 ML VIAL IV ONE (11:45)
[2020-05-21] MEDS ORDERED: POTASSIUM CHL 20MEQ/100ML 100 ML IV ONE (11:45)
[2020-05-21] MEDS: EPINEPHrine HCL 250 ML IV SCH (12:13)
--- NOTE | 2020-05-21 17:15 | NUR ---
manager money 05/20/2020 I received a page from Flora RODRIGUEZ informing me of transfer to higher level of care. I had Flora fax transfer packet to [facility] where [facility] has a contract. Flora verbalized understanding. Addendum: 05/21/20 at 1717 by Josseline QUINONEZ Amended: Links added.
[2020-05-21] MEDS ORDERED: TPN PER PHARMACY IV NR ×10 (20:00)
[2020-05-22] VITALS (90 sets, daily range): BP systolic 70–113; BP diastolic 39–83
[2020-05-22] MEDS: ACCU-CHEK COMFORT CURVE STRIP VI SCH ×4 (01:09→17:56)
[2020-05-22] MEDS: InsuLIN REG 1unit/0.01ml Soln (100units/ml) SC SCH ×4 (01:27→17:56)
[2020-05-22 05:00] LABS: Albumin 2.9 g/dL (3.4-5.0); Basophils # (auto) 0 10 ^3/uL (0-0.2); Basophils % (auto) 0.3 % (0.0-2.0); Calcium 7.5 mg/dL (8.5-10.1); Eosinophils # (auto) 0.1 10 ^3/uL (0-0.8); Eosinophils % (auto) 0.9 % (0.0-7.0); Hematocrit 29.7 % (41.0-53.0); Hemoglobin 9.9 g/dL (13.5-17.5); Lymphocytes # (auto) 0.5 10 ^3/uL (0.4-5.4); Lymphocytes % (auto) 6.5 % (10.0-50.0); Magnesium 2.2 mg/dL (1.6-2.6); Mean Corpuscular Hemoglobin 26.6 pg (28.0-32.0); Mean Corpuscular Hgb Conc. 33.3 g/dL (32.0-36.0); Mean Corpuscular Volume 79.7 fL (80.0-100.0); Monocytes # (auto) 0.2 10 ^3/uL (0-1.3); Neutrophils # (auto) 7.2 10 ^3/uL (1.6-8.6); Neutrophils % (auto) 89.3 % (37.0-80.0); Platelet Count (auto) 88 10^3/uL (140-450); Potassium 4.2 mmol/L (3.5-5.1); Red Blood Cells 3.73 10^6/uL (4.5-5.90); Red Cell Distribution Width 17.7 % (11.8-14.3); White Blood Cell 8.1 10^3/uL (4.4-10.8)
[2020-05-22 05:05] LABS: BUN/Creatinine Ratio 33.3; Bilirubin, Total 7.3 mg/dL (0.2-1.0); Phosphorus 3.2 mg/dL (2.5-4.90)
[2020-05-22 05:44] LABS: INR 1.69 (0.9-1.15); Partial Thromboplastin Time 51.5 sec (23.0-31.2)
[2020-05-22] MEDS: PIPERACILLIN-TAZOB 3.375GM 100 ML IV SCH ×3 (06:00→22:00)
[2020-05-22] MEDS: PHENYLEPHRINE INJ 40 MG in SODIUM CHL 0.9% 250 ML IV SCH ×2 (06:30→23:50)
[2020-05-22] MEDS: VASOPRESSIN 50 UNITS in D5W 5% 247.5 ML IV SCH (07:15)
[2020-05-22] MEDS: MIDAZOLAM DRIP 50 mg/50mL 50 ML IV SCH ×2 (09:07→17:57)
--- NOTE | 2020-05-22 09:29 | NUR ---
I called [facility] and spoke with Codie, they have no ICU beds available at this time. I called [facility] and spoke with house registry rn Ilda, she said they have no ICU beds available and have several patients in their ER waiting for ICU beds.
--- NOTE | 2020-05-22 09:40 | NUR ---
1769 05/22/20 I called [facility] and spoke with Lou, she said they are willing to accept this patient-their selin department is working on an HARMAN with [facility]. I called both [facility] Final Finisher Forging Dies Estela ([phone]) and Emily ([phone]) and phone just rang and rang, unable to leave message or speak with a live person.
--- NOTE | 2020-05-22 09:48 | NUR ---
I called [facility] ([phone]) and spoke with Yobany, placed patient on will-call pending transfer to [facility].
[2020-05-22] MEDS: PANTOPRAZOLE 40 MG/10 ML VIAL INJ IV SCH ×2 (09:53→22:00)
[2020-05-22] MEDS: SODIUM CHLORIDE 0.9% 1,000 ML IV SCH (10:26)
[2020-05-22] MEDS: NOREPINEPHRINE BITARTRATE 16 MG in SODIUM CHL 0.9% 250 ML IV SCH ×2 (10:57→20:55)
[2020-05-22] MEDS: EPINEPHrine HCL 250 ML IV SCH (12:13)
--- NOTE | 2020-05-22 12:29 | NUR ---
1225 05/22/20 I received a message from [facility] Assistant Teacher Primary Emily [phone] asking for an update on the status of the transfer. I called Emily and left voicemail letting her know that per [facility] they are working on an HARMAN (I asked Emily if she could verify that), and that [facility] and [facility] had no ICU beds available.
--- NOTE | 2020-05-22 12:34 | NUR ---
1230 05/22/20 I received a call from [facility] Per Diem Interpreter Emily letting me know that she did verify that they are currently working on an HARMAN with [facility]-but that it most likely wouldn't be completed today.
--- NOTE | 2020-05-22 15:17 | NUR ---
1515 05/22/20 I received a message from [facility] Facilities Maintenance Engineer Emily that the HARMAN has been completed with [facility]. I called [facility] Transfer Center and spoke with Lou-she did confirm that the HARMAN is complete, but they require a new COVID test to be done (within the last 5 days) before they can look for a bed for patient. I relayed this information to patient's nurse as well as letting her know that [facility] is on will call.
--- NOTE | 2020-05-22 16:23 | NUR ---
COVID TEST DONE AND SENT TO LAB.
[2020-05-22] MEDS: fentaNYL Drip 2500mCg/250mlNS 250 ML IV SCH (18:00)
[2020-05-22] MEDS ORDERED: FUROSEMIDE 40 MG/4 ML VIAL IV ONE (18:15)
--- NOTE | 2020-05-22 19:40 | NUR ---
Lab called and reported COVID-19 In House swab needed Doctor Order.
--- NOTE | 2020-05-22 19:40 | NUR ---
Dr. Caballero called for update status. voiced his unhappiness patient is on Fentanyl 200 mcg/hr; and, Levophed drip at 29.95 mcg/min; also, verbalized his unhappiness patient not transferred to [facility] or [facility]. wanted further updated status with lab results. 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 Licensed Audiologist realizes MD and machine sign writer conversation is disconnected. Addendum: 05/22/20 at 2140 by Sal Sanchez RN MD wants Fentanyl drip titrated down to 50 mcg/hr; and, Levophed drip titrated downward.
--- NOTE | 2020-05-22 19:49 | NUR ---
Report received from MICHAEL Chávez. Patient Intubated with ETT 7.5. Vent settings: AC 26 FiO2 30% Vt 500 PEEP 5. IVF: Levophed dirp at 29.95 mcg/min: Fentanyl drip at 200 mcg/hr; Versed drip at 7 mg/hr; TPN at 72 ml/hr. Will continue to monitor VS, RASS -3, and clinical status. Addendum: 05/22/20 at 2004 by Sal Sanchez RN CORRECTION REPORT TIME: 190
[2020-05-22] MEDS ORDERED: [UNRECOGNIZED DRUG - OTHER] IV NR ×11 (20:00)
[2020-05-22] MEDS ORDERED: FAT EMULSION IV NR ×11 (20:00)
[2020-05-22] MEDS ORDERED: POTASSIUM CHLORIDE IV NR ×11 (20:00)
[2020-05-22] MEDS ORDERED: SODIUM CHLORIDE IV NR ×11 (20:00)
--- NOTE | 2020-05-22 20:00 | NUR ---
TPN changed to new bag and line.
--- NOTE | 2020-05-22 20:05 | NUR ---
After extensive investigation of COVID-19 In House swab, Specimen was ordered however, in Order Detail indicating SPECIMEN COLLECTED -N; SPECIMEN COLLECTED CHANGED TO Y.
--- NOTE | 2020-05-22 20:10 | NUR ---
JOHNATHON Valentine informed telegraphic typewriter operator chief no beds at [facility].
--- NOTE | 2020-05-22 20:25 | NUR ---
Lab is called for COVID=19 ORDER. Lab states COVID-19 NOT ORDERED. Further Investigation review again changing SPECIMEN COLLECTED CHANGED TO N THEN BACK TO Y.
--- NOTE | 2020-05-22 20:30 | NUR ---
Lab is called and inquired if COVID-19 ORDER has crossed over. Lab states order has not crossed over.
--- NOTE | 2020-05-22 20:33 | NUR ---
Lab returned call and stated COVID-19 ORDER has crossed over.
--- NOTE | 2020-05-22 20:55 | NUR ---
Levophed drip bag changed to new bag.
--- NOTE | 2020-05-22 21:23 | NUR ---
Dr. Jamie Nguyen.
--- NOTE | 2020-05-22 22:00 | NUR ---
Rtn scheduled medications given. See e-MAR.
--- NOTE | 2020-05-22 23:50 | NUR ---
Patient HR 130's and SBP 80's-90's. Neosynephrine drip started at 40 mcg/min; also, Versed drip increase to 10 mg/hr.
[2020-05-23] VITALS (83 sets, daily range): BP systolic 44–153; BP diastolic 39–87
--- NOTE | 2020-05-23 | NUR ---
Accucheck 139 mg/dl. Patient covered with Regular Insulin 2 units SQ.
--- NOTE | 2020-05-23 00:05 | NUR ---
Dale-synephrine drip increase to 80 mcg/min due to BP 86/62. Addendum: 05/23/20 at 0037 by Sal Sanchez RN CORRECTION: Dale-synephrine increase to 65 mcg/min.
[2020-05-23] MEDS: MIDAZOLAM DRIP 50 mg/50mL 50 ML IV SCH ×3 (01:52→22:05)
--- NOTE | 2020-05-23 01:52 | NUR ---
Versed bag changed to new bag.
[2020-05-23] MEDS: fentaNYL Drip 2500mCg/250mlNS 250 ML IV SCH (04:55)
--- NOTE | 2020-05-23 04:55 | NUR ---
Fentanyl drip bag changed to new bag.
[2020-05-23 05:09] LABS: INR 1.56 (0.9-1.15); Partial Thromboplastin Time 47.1 sec (23.0-31.2)
[2020-05-23 05:11] LABS: Potassium 4.3 mmol/L (3.5-5.1)
[2020-05-23 05:18] LABS: Albumin 2.8 g/dL (3.4-5.0); BUN/Creatinine Ratio 32.6; Bilirubin, Total 9.2 mg/dL (0.2-1.0); Magnesium 2.2 mg/dL (1.6-2.6); Phosphorus 3.4 mg/dL (2.5-4.90); Total Protein 5.3 g/dL (6.4-8.2)
[2020-05-23] MEDS ORDERED: NOREPINEPHRINE BITARTRATE 2 ML IV ONE (05:31)
[2020-05-23] MEDS ORDERED: NOREPINEPHRINE 8 MG/250ML KIT 250 ML IV ONE (05:31)
[2020-05-23] MEDS: InsuLIN REG 1unit/0.01ml Soln (100units/ml) SC SCH ×4 (06:00→17:37)
--- NOTE | 2020-05-23 06:00 | NUR ---
Rtn scheduled medication given. See e-MAR. Accucheck 122 mg/dl. No coverage required. Fentanyl drip bag changed to new bag and Versed drip bag changed to new bag.
[2020-05-23] MEDS: ACCU-CHEK COMFORT CURVE STRIP VI SCH ×4 (06:03→17:37)
[2020-05-23] MEDS: PIPERACILLIN-TAZOB 3.375GM 100 ML IV SCH ×3 (06:04→22:04)
[2020-05-23] MEDS: VASOPRESSIN 50 UNITS in D5W 5% 247.5 ML IV SCH (07:15)
--- NOTE | 2020-05-23 08:10 | NUR ---
I faxed most recent COVID test to [facility].
--- NOTE | 2020-05-23 09:32 | NUR ---
I called [facility] Transfer [facility] and spoke with Melissa, she did receive the COVID test result, they are just waiting for a bed to open up for this patient and she will give me a call. I called [facility] Transfer Center, they have no ICU beds available. I called [facility] and left message for housesmith asking about bed availability.
[2020-05-23] MEDS: PANTOPRAZOLE 40 MG/10 ML VIAL INJ IV SCH ×2 (10:03→22:04)
--- NOTE | 2020-05-23 11:29 | NUR ---
Nutrition Followup Notes Wt: 93.0 kg Pt is intubated and sedated. Pt is awaiting transfer to another facility. Pt is NPO with PN support @ 74 ml/hr providing 1735 kcals and 90 gm proteins 1375 NPCs. Pt with adequate PN support as it meets 88-99% of est kcals and 126-161% of est proteins. Est energy needs 5817-0571 kcal (25-28 kcal/kg BW 70.6kg) est protein needs 56-71g (0.8-1g/kg BW 70.6kg) will reassess prn. LABS: Creat 0.43L, Alb 2.8L, GLUC 122H, T bili 9.2H GI: Pt with gastric drainage 60 ml 05/23 per RN note BS: 11 high risk. Refer to wound assessment report for full details. PES: 1) Inadequate oral intake aeb pt intubated r/t current medical condition Comments Comments: Continue to monitor NPO status, PN tolerance, labs, skin. F/u high 2-3 days Rec: 1) Continue PN support to meet > 75% of needs. 2) advance diet as medically feasible. 3) refer pt to [facility] on DC. 3) Continue current plan of care
[2020-05-23] MEDS: PHENYLEPHRINE INJ 40 MG in SODIUM CHL 0.9% 250 ML IV SCH ×3 (11:50→23:02)
[2020-05-23] MEDS ORDERED: DEXTROSE (50%) 50ML SYRG IV SCH (12:00)
[2020-05-23] MEDS: EPINEPHrine HCL 250 ML IV SCH (12:13)
--- NOTE | 2020-05-23 13:32 | NUR ---
I called [facility] Transfer Center and spoke with Ev, she said they have no ICU beds available. I called [facility] and left message for mailhouse operator asking about bed availability.
--- NOTE | 2020-05-23 13:35 | NUR ---
I called [facility] and spoke with powerhouse mechanic apprentice Teresita, she said they have no ICU beds available at this time. I received a call from [facility] powerhouse mechanic apprentice Stephanie, she said they have no ICU beds available and have several patients in their ER waiting for a bed.
--- NOTE | 2020-05-23 13:38 | NUR ---
I called [facility] and spoke with housekeeper head Caleb, he said they have no ICU beds available.
--- NOTE | 2020-05-23 13:51 | NUR ---
I called [facility] and spoke with hotel houseman Kush, he stated they have no ICU beds available but to fax packet and he will take a look at it. Faxed requested clinical information to [phone]. I called [facility] and left message for hotel houseman asking about bed availability.
--- NOTE | 2020-05-23 14:07 | NUR ---
I called [facility] Transfer Center and left message asking about bed availability.
--- NOTE | 2020-05-23 14:09 | NUR ---
I called [facility] and spoke with Clarence-patient remains on will-call pending transfer to higher level of care.
[2020-05-23] MEDS ORDERED: HEPARIN DRIP/D5W 100UNITS/ML 250 ML IV SCH ×2 (15:25→17:30)
[2020-05-23] MEDS: NOREPINEPHRINE BITARTRATE 16 MG in SODIUM CHL 0.9% 250 ML IV SCH (16:21)
[2020-05-23] MEDS ORDERED: HEPARIN SODIUM (PORCINE) 5000 UNITS/ML 1ML VIAL IV ONE (16:45)
--- NOTE | 2020-05-23 17:16 | NUR ---
TELELPHONE CALL OBTAINED FROM [facility] AND THEY WANT DR CASTELLON TO CALL LEONARDO AT [phone] OPTION 3 TO BE ABLE TO CALL THE ENFORCEMENT MANAGER AT [facility] THAT WILL ACCEPT PATIENT. ELECTRONIC EQUIPMENT INSTALLER CONNECTED TO THE ELECTRONIC EQUIPMENT INSTALLER LEFT THE MESSAGE AND AWAITING FOR DR CASTELLON CALL.
[2020-05-23 18:15] LABS: Eosinophils # (auto) 0.1 10 ^3/uL (0-0.8); Eosinophils % (auto) 0.7 % (0.0-7.0); Lymphocytes # (auto) 0.5 10 ^3/uL (0.4-5.4); Monocytes # (auto) 0.3 10 ^3/uL (0-1.3); Platelet Count (auto) 120 10^3/uL (140-450)
[2020-05-23 18:17] LABS: Basophils # (auto) 0.1 10 ^3/uL (0-0.2); Basophils % (auto) 0.8 % (0.0-2.0); Hematocrit 30.7 % (41.0-53.0); Hemoglobin 10.4 g/dL (13.5-17.5); Lymphocytes % (auto) 6.8 % (10.0-50.0); Mean Corpuscular Hemoglobin 26.3 pg (28.0-32.0); Mean Corpuscular Hgb Conc. 33.8 g/dL (32.0-36.0); Mean Corpuscular Volume 77.7 fL (80.0-100.0); Monocytes % (auto) 4.7 % (0.0-12.0); Neutrophils # (auto) 6.2 10 ^3/uL (1.6-8.6); Nucleated Red Blood Cells % 0.1 %; Red Blood Cells 3.95 10^6/uL (4.5-5.90); Red Cell Distribution Width 17.8 % (11.8-14.3); White Blood Cell 7.2 10^3/uL (4.4-10.8)
[2020-05-23 18:30] LABS: INR 1.49 (0.9-1.15); Partial Thromboplastin Time 45.4 sec (23.0-31.2)
--- NOTE | 2020-05-23 18:40 | NUR ---
DR CASTELLON CALLED AND HE SAID TO HAVE ALL THE COPIS OF CHART INCLUDING POST OP REPORT AND ALL CT SCANS AND XRAYS. . HE SAID HE CALLED THE JULIANNA LEUNG WITH THE CATALOG LIBRARY ASSISTANT FOR REPORT FROM HIM. HEPARIN DRIP STARTED AT 1700 UNITS WITH BOLUS OF 1.48.
--- NOTE | 2020-05-23 19:43 | NUR ---
Report received from MICHAEL Chávez. Patient intubated ETT to vent. Vent Settings: AC 26 FiO2 30% Vt 500 PEEP 5. IVF: Fentanyl drip at 200 mcg/hr; Versed drip at 7 mg/hr; Levophed drip at 29 mcg/min; Dale-synephrine 100 mcg/min; Heparin drip at 1,700 units/hr; TPN at 74 ml/hr; NS at 30 ml/hr. Will continue with POC; and, will continue to monitor VS, RASS -3, and clinical status.
[2020-05-23] MEDS ORDERED: TPN PER PHARMACY IV NR ×11 (20:00)
--- NOTE | 2020-05-23 20:15 | NUR ---
Patient Tachypneic 40's since 1500. Versed drip increase to 10 mg/hr.
--- NOTE | 2020-05-23 20:30 | NUR ---
TPN changed to new bag.
--- NOTE | 2020-05-23 20:40 | NUR ---
[facility] Transfer [facility] Sunny RODRIGUEZ called for unit and bed assignment. Sunny RODRIGUEZ direct phone number [phone]. Patient room assignment is [address] [place] [address]. Phone number for Report is [phone]. [facility] ICU is responsible for Transfer.
--- NOTE | 2020-05-23 21:30 | NUR ---
[facility] is called by check writer salesperson. POC is Obie. Obie states he has a unit on Stand-by for transfer. Addendum: 05/23/20 at 2220 by Sal Sanchez RN Disregard Note. Credit Risk Associate charted on wrong patient.
--- NOTE | 2020-05-23 22:00 | NUR ---
Rtn scheduled medications given. See e-MAR. Versed drip bag changed to new bag. Signed: 05/23/20 at 2213 by Sal Sanchez RN
--- NOTE | 2020-05-23 22:30 | NUR ---
[facility] is called by typewriter operator automatic ready for transportation to [facility]. POC Sunny states 90 minutes ETA.
[2020-05-24] VITALS (8 sets, daily range): BP systolic 86–109; BP diastolic 50–75
--- NOTE | 2020-05-24 | NUR ---
Accucheck 149 mg/dl. Patient covered with Regular Insulin 2 units SQ. PTT collected from [facility] by web content writer and specimen sent to lab.
[2020-05-24] MEDS: ACCU-CHEK COMFORT CURVE STRIP VI SCH (00:26)
[2020-05-24 00:27] LABS: INR 1.46 (0.9-1.15)
[2020-05-24] MEDS: InsuLIN REG 1unit/0.01ml Soln (100units/ml) SC SCH (00:27)
--- NOTE | 2020-05-24 00:30 | NUR ---
CRITICAL LAB: Lab called and reported PTT 97.9.
[2020-05-24 00:31] LABS: Partial Thromboplastin Time 97.9 sec (23.0-31.2)
--- NOTE | 2020-05-24 00:35 | NUR ---
Heparin held x 1 hour per Heparin Protocol. Will resume Heparin drip but will decrease Heparin rate 300 units/hr.
--- NOTE | 2020-05-24 01:10 | NUR ---
[facility] at bedside. Report given to CCRT RN. Levophed drip bag changed to new bag and Versed drip bag changed to new bag.
[2020-05-24] MEDS: MIDAZOLAM DRIP 50 mg/50mL 50 ML IV SCH (01:17)
[2020-05-24] MEDS: NOREPINEPHRINE BITARTRATE 16 MG in SODIUM CHL 0.9% 250 ML IV SCH (01:19)
--- NOTE | 2020-05-24 01:25 | NUR ---
[facility] Unit [address] RN Serge called with updated status and [facility] at bedside. Patient ready for transport with Fentanyl drip at 200 mcg/min; Versed drip at 10 mg/hr; Levophed drip at 29.95 mcg/min; Dale-synephrine drip at 100 mcg/min; TPN at 78 ml/hr. EMS will not resume Heparin drip.
[2020-05-24 01:29] LABS: INR 1.46 (0.9-1.15); Partial Thromboplastin Time 98.6 sec (23.0-31.2)
--- NOTE | 2020-05-24 01:30 | NUR ---
Patient transferred to EMS [facility]. Patient OTD with IVF as above with EMS Team and Custody Officers to [facility].
== END 2020-05-24 04:54 | disposition short-term general hospital (02) | DRG 853 ==
LOC: EDBD 12:01 → EEVIPCON 12:01 → ER 12:01 → TELE 12:02 → TELE-WESTW 18:39 → ICU WEST 05-15 02:04
PROVIDERS: ADMIT Internal Medicine; ATTEND Internal Medicine
PROC: 02H633Z Insertion of Infusion Device into Right Atrium, Percutaneous Approach (ICD-10-PCS; principal; 2020-05-15)
PROC: 0DNU0ZZ Release Omentum, Open Approach (ICD-10-PCS; 2020-05-15)
PROC: 0WPG0JZ Removal of Synthetic Substitute from Peritoneal Cavity, Open Approach (ICD-10-PCS; 2020-05-15)
PROC: 0DB80ZZ Excision of Small Intestine, Open Approach (ICD-10-PCS; 2020-05-15)
PROC: 0DTJ0ZZ Resection of Appendix, Open Approach (ICD-10-PCS; 2020-05-15)
PROC: 0DBU0ZZ Excision of Omentum, Open Approach (ICD-10-PCS; 2020-05-15)
PROC: 3E0T3BZ Introduction of Anesthetic Agent into Peripheral Nerves and Plexi, Percutaneous Approach (ICD-10-PCS; 2020-05-15)
PROC: 5A1955Z Respiratory Ventilation, Greater than 96 Consecutive Hours (ICD-10-PCS; 2020-05-15)
PROC: 0BH17EZ Insertion of Endotracheal Airway into Trachea, Via Natural or Artificial Opening (ICD-10-PCS; 2020-05-15)
PROC: 30233N1 Transfusion of Nonautologous Red Blood Cells into Peripheral Vein, Percutaneous Approach (ICD-10-PCS; 2020-05-17)
PROC: 30233K1 Transfusion of Nonautologous Frozen Plasma into Peripheral Vein, Percutaneous Approach (ICD-10-PCS; 2020-05-17)
PROC: 3E0436Z Introduction of Nutritional Substance into Central Vein, Percutaneous Approach (ICD-10-PCS; 2020-05-17)
DX: A41.51 Sepsis due to Escherichia coli [E. coli] (principal); E43 Unspecified severe protein-calorie malnutrition; K63.1 Perforation of intestine (nontraumatic); K65.1 Peritoneal abscess; J96.00 Acute respiratory failure, unspecified whether with hypoxia or hypercapnia; J15.5 Pneumonia due to Escherichia coli; R65.21 Severe sepsis with septic shock; E87.1 Hypo-osmolality and hyponatremia; N17.9 Acute kidney failure, unspecified; D68.9 Coagulation defect, unspecified; J81.1 Chronic pulmonary edema; Z99.11 Dependence on respirator [ventilator] status; E11.649 Type 2 diabetes mellitus with hypoglycemia without coma; K66.0 Peritoneal adhesions (postprocedural) (postinfection); D64.9 Anemia, unspecified; K72.90 Hepatic failure, unspecified without coma; E78.5 Hyperlipidemia, unspecified; I10 Essential (primary) hypertension; Z20.828 Contact with and (suspected) exposure to other viral communicable diseases; R10.0 Acute abdomen; R23.0 Cyanosis; Z83.3 Family history of diabetes mellitus; Z82.49 Family history of ischemic heart disease and other diseases of the circulatory system; Z90.49 Acquired absence of other specified parts of digestive tract; Z68.32 Body mass index [BMI] 32.0-32.9, adult
CPT/HCPCS: 36415; 36600; 71045; 74178; 80053; 80202; 81001; 82040; 82140; 82805; 82962; 83735; 83880; 84100; 84132; 84443; 84478; 84484; 85007; 85025; 85027; 85610; 85730; 86850; 86900; 86901; 86920; 87040; 87070; 87077; 87081; 87086; 87186; 87205; 87426; 93306; 93926; 93970; 94002; 94003; 96361; 96374; C9113; G0378; J0171; J0610; J1335; J1815; J2001; J2250; J2405; J2543; J3430; J3480; J3490; J7042; J7060; J7131; P9047